=== PATIENT | female | born 1995 | race Caucasian/White ===

== ENCOUNTER → 2020-05-28 15:37 | Outpatient (CLI) | payer MEDICAID, SELFPAY ==
[2020-05-28 16:16] LABS: Lipase 69 U/L (73-393)
== END ==
PROVIDERS: Referring Provider Physician Assistant; Visit Provider Physician Assistant
DX: R10.11 Right upper quadrant pain (principal); R19.7 Diarrhea, unspecified
CPT/HCPCS: 83690

== ENCOUNTER 2020-05-29 11:42 | Emergency (ER) | payer MEDICAID, SELFPAY ==
[2020-05-29 11:43] VITALS: BP 139/81; PULSE 98; RESP 16; TEMP 36.2; O2SAT 97; BMI 37.3
--- NOTE | 2020-05-29 11:57 | CT_ITS ---
STUDY: CT ABDOMEN AND PELVIS WITHOUT CONTRAST REASON FOR EXAM: Female, 25 years old. Kidney Stone RADIATION DOSAGE (If Supplied By Facility): CTDIvol = ( 16.24 ) mGy, DLP = ( 839.63 ) mGycm TECHNIQUE: Transaxial images were obtained from the dome of the diaphragm to the symphysis pubis without oral contrast, and without intravenous contrast. Sagittal and coronal images were reconstructed. Individualized dose optimization techniques were used for this CT. COMPARISON: None. FINDINGS: The visualized lung bases are unremarkable. The visualized portions of the heart are within normal limits. There is decreased attenuation of the liver consistent with steatosis. There are surgical clips in the gallbladder fossa consistent with a prior cholecystectomy. Normal spleen. Normal pancreas. Normal bilateral adrenal glands. Normal right kidney. Normal left kidney. Normal visualized stomach. Normal small intestine. Normal colon. The appendix is visualized and appears normal. Normal abdominal aorta. Normal inferior vena cava. Normal retroperitoneum. Normal urinary bladder. There is a small umbilical hernia containing fat. Normal osseous structures. CT/Abdomen/Pelvis without Cont IMPRESSION: 1. No renal or ureteral stone. 2. Status post cholecystectomy with fatty infiltration liver. Electronically Signed: Saji Aquino MD at 13:54 EDT Tel , Service support ,
[2020-05-29] MEDS: 0.9% Normal Saline 1,000 ML 250 ML IV (12:23)
[2020-05-29] MEDS: Ondansetron 4 MG/2 ML Vial IV (12:23)
--- NOTE | 2020-05-29 12:23 | ED.DCSUM_ITS ---
History of Present Illness Chief Complaint: Flank Pain Informant: Patient Onset: Days Context: Sudden Onset Timing: Continuous, Waxes and wanes Quality: Right flank/right upper abdominal pain Location: Right Current Severity: Mild Maximum Severity: Severe Worsened by: Nothing specific Relieved by: Nothing Associated Symptoms: Nothing Narrative: Patient is a 25-year-old woman status post cholecystectomy who presents with abrupt onset of right flank pain and right upper quadrant pain that started on Sunday. The pain has waxed and waned its intensity. The pain is described as pain. She denies dysuria, frequency, urgency or hematuria. She denies history of renal ureterolithiasis. She does have remote history of pyelonephritis. She denies fever, chills night sweats. She denies history of VTE or risk factors. There is no history of trauma. She has not noted a rash. No family history of renal or ureterolithiasis. Prior similar symptoms: No Recent Illness/Hospitalization: No Past Medical History - Allergies and Home Meds Allergies/Adverse Reactions: Allergies sumatriptan [From Imitrex] Adverse Reaction (Verified 05/29/20 11:46) PT UNSURE OF REACTION Primary Care Physician: TESS MOODY [Other] Prior records reviewed: No Surgical History: cholecystectomy Lives: With Family Smoking Status: Never smoker Alcohol: None Drugs: None Review of Systems General: Denies: Chills, Fever, Sweats Cardiovascular: Denies: Chest pain, Palpitations Respiratory: Denies: Dyspnea, Cough, Dyspnea on exertion Gastrointestinal: Reports: Abdominal pain. Denies: Nausea, Vomiting, Diarrhea Genitourinary: Denies: Dysuria, Hematuria, Frequency Musculoskeletal: Reports: Back pain. Denies: Myalgias, Arthralgias, Neck pain, Swelling, Extremity Pain Skin: Denies: Rash, Wounds Neurological: Denies: Weakness, Parasthesia Endocrine: Denies: Polyuria, Polydipsia Hematologic: Denies: Easy bruising, Easy bleeding Allergy: Denies: Uticaria Physical Exam Vital Signs/Narrative: Vital Signs Temp Pulse Resp BP Pulse Ox 05/29/20 11:43 97.1 F L 98 16 139/81 H 97 Inital Vital Signs reviewed: Yes General: Well nourished, Well developed, Obese, Acute Distress Head: Normocephalic, Atraumatic Eyes: Perrl, EOMI. Negative for: Pale conjunctiva, Scleral icterus ENT: Moist mucous membranes, No rhinorrhea Neck: Supple, Nontender. Negative for: No lymphadenopathy, No JVD Cardiovascular: Regular rate, Regular rhythm, No murmurs, Normal S1, Normal S2 Respiratory: No distress, CTA bilaterally, Chest nontender Abdomen: Soft, Nondistended, Normal bowel sounds, Tender. Negative for: N ontender, Putnam's sign Rectal: Deferred Back: Nontender, Normal Inspection, CVA tenderness - Right side. Negative for: Spinal tenderness Extremities: Nontender, No edema Skin: Normal color, No rash Neurological: Alert, Oriented x3, Cranial nerves II-XII grossly intact, Normal Strength, Normal Sensation, Normal DTR Psychological: Depressed Diagnostic/Tx/Re-eval Impressions Abdomen/Pelvis CT 05/29/20 11:57 IMPRESSION: 1. No renal or ureteral stone. 2. Status post cholecystectomy with fatty infiltration liver. Electronically Signed: Saji Aquino MD at 13:54 EDT Tel , Service support , 05/29/20 11:57 Abdomen/Pelvis without Cont [CT] Stat Laboratory Results 05/29/20 05/29/20 05/29/20 12:20 12:20 12:20 WBC 7.9 RBC 4.71 Hgb 13.8 Hct 41.3 MCV 87.7 MCH 29.3 MCHC 33.4 RDW Std Deviation 39.4 RDW Coeff of Vel 12.3 Plt Count 210 MPV 11.5 Immature Gran % (Auto) 0.600 Neut % (Auto) 64.0 Lymph % (Auto) 25.6 [place] % (Auto) 6.0 Eos % (Auto) 3.4 Baso % (Auto) 0.4 Absolute Neuts (auto) 5.1 Absolute Lymphs (auto) 2.02 Nucleated RBC % 0 Sodium 142 Potassium 3.4 L Chloride 114 H Carbon Dioxide 23.0 Anion Gap 5 BUN 14 Creatinine 0.89 Estim Creat Clear Calc 85.44 Est GFR (MDRD) Af Amer 98 Est GFR (MDRD) Non-Af 81 BUN/Creatinine Ratio 15.8 Glucose 116 H Calcium 7.4 L Serum , Qual NEGATIVE Urine Color Urine Clarity Urine pH Ur Specific [place] Urine Protein Urine Glucose (UA) Urine Ketones Urine Occult Blood Urine Nitrite Urine Bilirubin Urine Urobilinogen Ur Leukocyte Esterase Urine RBC Urine WBC Ur Squamous Epith Cells Urine Bacteria Urine Mucus 05/29/20 12:20 WBC RBC Hgb Hct MCV MCH MCHC RDW Std Deviation RDW Coeff of Vel Plt Count MPV Immature Gran % (Auto) Neut % (Auto) Lymph % (Auto) [place] % (Auto) Eos % (Auto) Baso % (Auto) Absolute Neuts (auto) Absolute Lymphs (auto) Nucleated RBC % Sodium Potassium Chloride Carbon Dioxide Anion Gap BUN Creatinine Estim Creat Clear Calc Est GFR (MDRD) Af Amer Est GFR (MDRD) Non-Af BUN/Creatinine Ratio Glucose Calcium Serum , Qual Urine Color Yellow Urine Clarity Cloudy Urine pH 5.0 Ur Specific [place]houn 1.025 Urine Protein 15 H Urine Glucose (UA) Normal Urine Ketones 5 H Urine Occult Blood 10 H Urine Nitrite Negative Urine Bilirubin Negative Urine Urobilinogen Normal Ur Leukocyte Esterase 25 H Urine RBC 0 SEEN Urine WBC 0-5 SEEN Ur Squamous Epith Cells 25-50 SEEN Urine Bacteria 3+ Urine Mucus [address] reveals no evidence of renal ureterolithiasis. Urine is a contaminated specimen. The cause of her pain is unknown. - Medical Decision Making Patient with waxing waning flank pain need to evaluate for renal/ureterolithiasis with obstruction, pyelonephritis or other etiology. CT without contrast and appropriate blood work and UA were obtained. She was medicated with IV Toradol. Patient was discharged prescription for Naprosyn. She was informed the cause of her pain is unknown. ED Disposition - Plan for ED Patient: Disposition: Home or Assisted Living Diagnosis: Acute right flank pain, Right upper quadrant pain Instructions: ED Flank Pain, Uncertain Cause Prescriptions: Naproxen [Naprosyn] 500 mg PO BID #14 tablet Transmission Status: Pending to [id number] Referrals: TESS MOODY [Other] - 3-5 Days if not improving
[2020-05-29] MEDS: Ketorolac 15 MG/ML Vial IV (12:24)
[2020-05-29 12:31] LABS: Mucous, Urine 0 SEEN /hpf (<or=2+); Red Blood Cells-Urine 0 SEEN /hpf (0-5)
[2020-05-29 12:33] LABS: Color, Urine Yellow (Yellow); Glucose, Dipstick Normal (Normal); Ketone-Dipstick 5 mg/dl (Negative); Leukocyte Esterase-Dipstick 25 /ul (Negative); Nitrite-Dipstick Negative (Negative); Occult Blood-Urine 10 /ul (Negative); Protein-Dipstick 15 mg/dl (Negative); Specific Gravity, Urine 1.025 (1.002-1.030); Urine Bilirubin Dipstick Negative (Negative); Urine Clarity Cloudy (Clear); Urine Urobilinogen Normal (Normal)
[2020-05-29 12:34] LABS: Absolute Lymphocyte Count 2.02 X10^3/uL (0.83-4.51); Absolute Neutrophil Count 5.1 X10^3/uL (2.0-7.7); Basophil# 0.03 X10^3/uL; Basophil% 0.4 % (0-1); Eosinophil# 0.27 X10^3/uL; Eosinophils% 3.4 % (0-5); Hematocrit 41.3 % (37-47); Hemoglobin 13.8 g/dL (12.0-15.0); Lymphocyte # 2.02 X10^3/ul (0.83-4.51); Lymphocyte % 25.6 % (19-41); Mean Corp Hgb Conc 33.4 g/dL (32-36); Mean Corpuscular Hgb 29.3 pg (27.0-32.0); Mean Corpuscular Volume 87.7 fL (81-99); Mean Platelet Vol. 11.5 fl (6.2-12.0); Monocyte# 0.47 X10^3/uL; NRBC Flagged by Analyzer 0 % (0-5); Neutrophil # 5.05 X10^3/uL (2.7-7.7); Platelet Count 210 K/mm3 (150-450); RBC Distribution Width CV 12.3 % (11.6-14.6); RBC Distribution Width SD 39.4 fl (35.1-43.9); Red Blood Count 4.71 M/mm3 (4.2-5.4); White Blood Count 7.9 K/mm3 (4.4-11.0)
[2020-05-29 12:38] LABS: Bacteria 3+ /hpf (None Seen); Squamous Epithelial Cells - UA 25-50 SEEN /hpf (5-10); White Blood Cells 0-5 SEEN /hpf (0-5)
[2020-05-29 12:45] LABS: Anion Gap 5 (5-15); BUN 14 mg/dL (7-18); BUN/Creat Ratio 15.8 RATIO (10-20); Calcium,Total 7.4 mg/dL (8.5-10.1); Chloride 114 mmol/L (98-107); Creatinine, Serum 0.89 mg/dL (0.55-1.02); EST Glomerular Filtration Rate 81 mL/min (>60); Est Glom Filt Rate - Afr Amer 98 mL/min (>60); Estimated Creatinine Clearance 85.44 ml/min; Glucose 116 mg/dL (74-106); Potassium 3.4 mmol/L (3.5-5.1); Sodium Level 142 mmol/L (136-145)
[2020-05-29 12:50] LABS: Internal QC Validated? YES +Cl - CLEAR BKGD; Pregnancy, Serum, hCG Quali. NEGATIVE Negative
[2020-05-29 14:15] VITALS: BP 125/84; PULSE 79; RESP 15; O2SAT 98
== END 2020-05-29 14:17 | disposition home or self-care (01) ==
PROVIDERS: Emergency Provider Emergency Medicine
DX: R10.11 Right upper quadrant pain (principal); E66.9 Obesity, unspecified; Z90.49 Acquired absence of other specified parts of digestive tract
CPT/HCPCS: 74176; 80048; 81001; 84703; 85025; 96361; 96374; 96375; 99284; J7030; J2405

== ENCOUNTER 2020-07-30 10:53 | Emergency (ER) | payer MEDICAID, SELFPAY ==
[2020-07-30 10:54] VITALS: BP 137/84; PULSE 90; RESP 16; TEMP 36.5; O2SAT 96; BMI 36.8
--- NOTE | 2020-07-30 11:03 | EX.ED.GENINJ ---
HPI History of Present Illness Chief Complaint: Fall Informant: patient Narrative Narrative: 25-year-old female states that about 1 hour prior to arrival she tripped over a kids toy landing her left lower rib onto a step. She notes pain with movement and respirations. No hemoptysis. Patient denies any abdominal symptoms. PFSH PFSH Home Medications amoxicillin 1 mg PO BID 07/30/20 [History Last Taken Unknown] Allergy/AdvReac Type Severity Reaction Status Date / Time sumatriptan [From Imitrex] AdvReac PT UNSURE Verified 07/30/20 10:53 OF REACTION Social History (Updated 07/30/20 @ 11:[address] Tate Presley, DO) Smoking Status: Never smoker substance use type: does not use ROS ROS ED Constitutional Constitutional ED: Denies chills or weight loss Eyes Eyes: Denies change in vision or diplopia ENT ENT ED: Denies ear pain, rhinorrhea or sore throat Cardiovascular Cardiovascular: Reports chest pain; Denies orthopnea, palpitations or racing heartbeat Respiratory/Chest Respiratory/Chest: Denies cough, dyspnea or orthopnea Gastrointestinal Gastrointestinal: Denies abdominal pain, diarrhea, nausea or vomiting Genitourinary Genitourinary ED: Denies dysuria, hematuria or urinary frequency Musculoskeletal Musculoskeletal: Denies arthralgias or myalgias Integumentary Denies abscess or rash Neurologic Neurologic: Denies headache(s) or weakness Psychiatric Psychiatric: Denies anxiety, depression, suicidal ideation or suicidal thoughts Endocrine Endocrinology: Denies polydipsia, polyphagia or polyuria Allergic/Immunologic Allergic/Immunologic ED: Denies mouth swelling, tongue swelling or urticaria EXAM Physical Exam Const Vital Signs: 07/30/20 10:54 07/30/20 11:00 Temperature 97.7 F L Temperature Source Temporal Pulse Rate 90 Respiratory Rate 16 Respiratory Effort Normal Non-Labored Respiratory Depth Normal Respiratory Pattern Normal Blood Pressure 137/84 H Blood Pressure Mean 101 Pulse Ox 96 Oxygen Delivery Method Room Air Room Air Positive well nourished and well developed General Appearance ED: well developed HEENT Reports normocephalic, head/scalp atraumatic and moist mucous membranes Eyes PERRL and EOMs intact bilaterally Neck no lymphadenopathy, supple and no JVD Chest Wall Chest Narrative: Tenderness to palpation the posterior aspect of the mid axillary ribs around rib 8 and 9. There are some mild erythema. No crepitance. Resp normal respiratory effort and clear to auscultation bilaterally Cardio regular rate, regular rhythm and no murmurs GI normal to inspection, nondistended, normoactive bowel sounds and non-tender Palpation: soft Back/Spine no CVA tenderness and normal ROM Extremity normal to inspection General Extremety ED: Negative for edema General Extremity: Negative for edema Neuro oriented x3 and CN's II-XII intact bilaterally Sensorium / Orientation: alert Motor Exam: strength 5/5 throughout Psych mental status grossly normal Mood & Affect: Negative for depressed or tearful Skin no rashes or lesions noted and no wounds MDM MDM MDM Narrative Medical decision making narrative: My impression of the plain films of the rib series Discharge Plan Triage Chief Complaint: Fall ED Provider: Tate Presley Dx/Rx/DC Orders Clinical Impression: Contusion of rib on left side Instructions: ED Contusion, Rib Prescriptions: No Action amoxicillin 875 mg tablet 1 mg PO BID RF: 0 Referrals: DAYDAY CANALES [Other] Disposition Disposition: Home, Self Care
--- NOTE | 2020-07-30 11:10 | RAD_ITS ---
STUDY: X-RAY - UNILATERAL RIBS ( LEFT ) WITH CHEST REASON FOR EXAM: Female, 25 years old. injury TECHNIQUE - RIBS: view(s) of the ribs. TECHNIQUE - CHEST: COMPARISON: None. FINDINGS - RIBS: Normal visualized ribs without a demonstrated fracture. FINDINGS - CHEST: The lungs are clear and expanded. There is no demonstrated pleural abnormality. Normal size heart. Normal mediastinum and cassi. Normal visualized pulmonary arteries. Normal visualized aortic arch and descending thoracic aorta. Normal visualized thoracic spine. Normal visualized ribs, clavicles, and shoulders. There is no demonstrated abnormality of the visualized soft tissue structures of the upper abdomen. RAD/Ribs Uni Min 3V w/PA Chest IMPRESSION: RIBS: Normal x-ray examination of the ribs. CHEST: Normal x-ray examination of the chest. Electronically Signed: Gregorio Arnold, at 11:36 EDT Tel , Service support ,
[2020-07-30 11:54] VITALS: PULSE 84; RESP 17; O2SAT 97
== END 2020-07-30 11:55 | disposition home or self-care (01) ==
PROVIDERS: Emergency Provider Emergency Medicine
DX: S20.212A Contusion of left front wall of thorax, initial encounter (principal); W01.0XXA Fall on same level from slipping, tripping and stumbling without subsequent striking against object, initial encounter
CPT/HCPCS: 71101; 99282

== ENCOUNTER 2023-06-05 06:41 | Emergency (ER) | payer MEDICAID, SELFPAY ==
[2023-06-05 06:42] VITALS: BP 133/98; PULSE 79; RESP 18; TEMP 36.6; O2SAT 98; BMI 37.2
--- NOTE | 2023-06-05 07:07 | EX.ED.UPPERE ---
HPI History of Present Illness HPI Narrative: Patient presents with pain and swelling to her right elbow, forearm, and hand that has been getting worse over the past 2 days. Patient states it began rather suddenly. Patient states she was at rest when the pain began. Patient states the pain has been constant. Patient describes her pain as sharp. Patient states it is worse with any movement or lifting. Patient states it is better with rest. Patient admits to some tingling into her fingers but denies any weakness. Patient denies any trauma or injury. Chief Complaint: Upper Extremity Injury Informant: patient Onset/Context/Timing Onset: Days (2) Context: Sudden Onset Timing: Continuous Quality of Pain: Sharp Location: Right elbow, forearm, and hand Worsened by: Lifting, movement Relieved by: Rest Associated Symptoms Associated Symptoms: Positive for Parasthesia; Negative for Weakness or Loss of Funtion PFSH PFSH Medical History no medical history no medical history Home Medications naproxen 500 mg tablet 500 mg PO BID #20 tabs 06/05/23 [Rx Last Taken Unknown] phentermine 8 mg tablet (Lomaira) 8 mg PO DAILY 06/05/23 [History Last Taken Unknown] Allergy/AdvReac Type Severity Reaction Status Date / Time sumatriptan [From Imitrex] AdvReac PT UNSURE Verified 06/05/23 06:42 OF REACTION Surgical History no surgical history no surgical history Social History Smoking Status: Never smoker substance use type: does not use ROS ROS ED Constitutional Constitutional ED: Denies chills or fever(s) Eyes Eyes: Denies blurry vision or change in vision ENT ENT ED: Denies rhinorrhea or sore throat Cardiovascular Cardiovascular: Denies chest pain or palpitations Respiratory/Chest Respiratory/Chest: Denies cough or dyspnea Gastrointestinal Gastrointestinal: Denies nausea or vomiting Genitourinary Genitourinary ED: Denies dysuria or hematuria Musculoskeletal Musculoskeletal: Denies back pain or neck pain Integumentary Denies abscess or rash Neurologic Neurologic: Denies headache(s) or weakness Allergic/Immunologic Allergic/Immunologic ED: Denies mouth swelling or urticaria EXAM Physical Exam Const Vital Signs: 06/05/23 06:42 Temperature 97.9 F Temperature Source Temporal Pulse Rate 79 Respiratory Rate 18 Blood Pressure 133/98 H Blood Pressure Mean 109 Pulse Ox 98 Oxygen Delivery Method Room Air Positive well nourished, well developed and obese General Appearance ED: well developed and NAD Nutritional Appearance: obese HEENT Reports moist mucous membranes Neck full ROM and supple Extremity full ROM Extremity Narrative: There is tenderness over the lateral epicondyle and medial epicondyle over the right elbow. There is no bony crepitance or step-off noted. Range of motion was limited in all motions of the right elbow and right wrist secondary to pain. There is pain over the lateral epicondyle with resisted extension of the right wrist. There is a positive Tinel sign at the elbow over the cubital tunnel as well as over the wrist over the carpal tunnel. There is a positive Phalen's test. There is no obvious deformity noted. Radial pulses are equal bilaterally. Sensation was intact to light touch in the radial, median, and ulnar areas. Strength is 5/5 in the radial, median, and ulnar areas. General Extremety ED: Yes edema General Extremity: edema Neuro oriented x3, CN's II-XII intact bilaterally, moves all extremities, no focal motor deficits and no sensory deficits noted Sensorium / Orientation: alert Motor Exam: strength 5/5 throughout Psych mental status grossly normal MDM MDM MDM Narrative Medical decision making narrative: Patient was advised that this is most likely inflammatory condition. It could be carpal tunnel, cubital tunnel, or lateral epicondylitis. Patient was advised that the treatment for all of these is anti-inflammatory medicine. Patient was also given a cock up wrist splint. Patient was instructed to follow-up with her primary care physician in 5 to 7 days. Patient was instructed to return if worse in any way. Patient understood and was agreeable with the plan. All questions were answered. Discharge Plan Triage Chief Complaint: Upper Extremity Injury ED Provider: Yo Baker Dx/Rx/DC Orders Clinical Impression: Lateral epicondylitis of right elbow, Carpal tunnel syndrome, right Instructions: ED Carpal Tunnel Syndrome, ED Tennis Elbow Prescriptions: New naproxen 500 mg tablet 500 mg PO BID Qty: 20 0RF No Action Lomaira 8 mg tablet 8 mg PO DAILY Rx Instructions: must administer 30 minutes before meals/food Stand Alone Forms: Work Status Form Primary Care Provider: Care Physician,No Primary Referrals: Enma Peres DO [Med Staff - Active Staff] - 5-7 Days Care Physician,No Primary [Primary Care Provider] - Disposition Disposition: Home, Self Care
[2023-06-05] MEDS: Naproxen 500 MG Tablet PO (07:41)
== END 2023-06-05 07:51 | disposition home or self-care (01) ==
PROVIDERS: Emergency Provider Emergency Medicine; Visit Provider Emergency Medicine
DX: M77.11 Lateral epicondylitis, right elbow (principal); G56.01 Carpal tunnel syndrome, right upper limb; E66.9 Obesity, unspecified
CPT/HCPCS: 99283

== ENCOUNTER 2024-02-19 20:33 | Emergency (ER) | payer MEDICAID, SELFPAY ==
[2024-02-19 20:34] VITALS: BP 111/86; PULSE 106; RESP 16; TEMP 36.9; O2SAT 97; BMI 33.8
--- NOTE | 2024-02-19 22:17 | EDS_ITS ---
HPI History of Present Illness Chief Complaint: Cough Informant: patient and spouse/S.O. Narrative Narrative: Patient is a 28-year-old female who is a roughly 15 weeks . She states her other child got sick over [place] break and then she has been having congestion drainage and cough for approximately 2 weeks. She states that symptoms are not improving. She denies fevers or chills. She denies history of lung disorders such as asthma COPD or emphysema. With her she denies any vaginal bleeding or discharge. She states that as her symptoms have not improved over the past 2 weeks she does have concern for developing infection such as pneumonia and therefore comes in for evaluation [facility] Medical History unable to obtain Home Medications ?Medication ?Instructions ?Recorded ?Last Taken ?Type naproxen 500 mg tablet 500 mg PO BID #20 tabs 06/05/23 Unknown Rx phentermine 8 mg tablet (Lomaira) 8 mg PO DAILY 06/05/23 Unknown History azithromycin 250 mg tablet See Rx Instructions PO .COMPLEX #6 02/19/24 Unknown Rx (Zithromax Z-Rainer) tabs benzonatate 200 mg capsule 200 mg PO TID PRN cough 7 days #21 02/19/24 Unknown Rx caps Allergy/AdvReac Type Severity Reaction Status Date / Time sumatriptan (From Imitrex) AdvReac PT UNSURE Verified 02/19/24 20:38 OF REACTION Social History Smoking Status: Never smoker substance use type: does not use ROS ROS ED Constitutional Constitutional ED: Denies chills or fever(s) Eyes Eyes: Denies blurry vision or change in vision ENT ENT ED: Reports rhinorrhea Cardiovascular Cardiovascular: Denies chest pain Respiratory/Chest Respiratory/Chest: Reports cough and dyspnea Gastrointestinal Gastrointestinal: Denies abdominal pain, diarrhea, nausea or vomiting Genitourinary Genitourinary ED: Reports other Details: Negative vaginal bleeding or discharge ; Denies dysuria or hematuria Musculoskeletal Musculoskeletal: Reports myalgias Integumentary Denies rash Neurologic Neurologic: Denies headache(s) Hematologic/Lymphatic Hematologic/Lymphatic: Denies easy bleeding or easy bruising Allergic/Immunologic Allergic/Immunologic ED: Denies mouth swelling or tongue swelling EXAM Physical Exam Const Vital Signs: 02/19/24 20:34 Temperature 98.4 F Temperature Source Oral Pulse Rate 106 H Respiratory Rate 16 Blood Pressure 111/86 H Blood Pressure Mean 94 Pulse Ox 97 Oxygen Delivery Method Room Air Positive well nourished and well developed General Appearance ED: well developed; Negative for pallor HEENT HEENT Narrative: Bilateral TMs are retracted right greater than left without secondary findings to suggest infection Nasal mucosa is hyperemic and boggy with enlarged inferior nasal turbinates There is cobblestoning noted in the posterior pharynx consistent with sinus drainage without airway edema or compromise; no secondary findings to suggest infection Eyes PERRL and EOMs intact bilaterally Neck supple and no JVD Resp normal respiratory effort Resp Narrative: Breath sounds are slightly diminished throughout with faint expiratory wheeze however in the right lower lobe there is asymmetrical rhonchi noted. Cardio regular rate and regular rhythm GI normal to inspection, nondistended, normoactive bowel sounds, non-tender and non-distended GI Narrative: Abdomen is soft nontender nondistended with normal active bowel sounds. Fundus is appropriate with reported gestational age. Auscultation: normoactive bowel sounds Palpation: soft Extremity normal to inspection Extremity Narrative: No asymmetric edema no pitting edema negative Homans' sign bilaterally Neuro oriented x3, CN's II-XII intact bilaterally and no sensory deficits noted Sensorium / Orientation: alert Motor Exam: strength 5/5 throughout Psych mental status grossly normal Skin no rashes or lesions noted General Skin Exam: Negative for jaundice or pallor MDM MDM MDM Narrative Medical decision making narrative: Patient arrived to the ER with stable vitals and in no acute respiratory distress. With her report of congestion and cough this is most likely COVID versus influenza versus RSV or some other type of viral process such as rhinovirus or human metapneumo virus. However as she does have asymmetric right lower lobe breath sounds there is concern for developing pneumonia. I discussed with patient potential viral swab for COVID influenza and RSV but as she is not hypoxic or in respiratory distress it would not change treatment outcomes and therefore she does not want a viral swab obtained. With asymmetric breath sounds there is concern for pneumonia but based on her status I did not feel that it was appropriate to x-ray. At this time with 2 weeks of cough asymmetric breath sounds in the right lower lobe patient most likely is developing a secondary pneumonia. However she is not hypoxic or in respiratory distress and vitals do not suggest systemic infection such as sepsis. Therefore we will simply start the patient on antibiotics and she can follow-up with your family doctor and/or WORK MEASUREMENT ENGINEER for repeat evaluation. History & Record Review Discussion w/independent historian: Patient Discharge Plan Triage Chief Complaint: Cough Other Complaint: ED Provider: Kaz Schrader Dx/Rx/DC Orders Clinical Impression: Upper respiratory tract infection, Intrauterine Instructions: ED URI, Viral W/ Wheezing (Adult) Prescriptions: New azithromycin [Zithromax Z-Rainer] 250 mg tablet See Rx Instructions .ROUTE .COMPLEX Qty: 6 0RF Rx Instructions: For 250 mg dose pack: take 500 mg today (day 1), then 250 mg for 4 days (days 2-5) benzonatate 200 mg capsule 200 mg PO TID PRN (Reason: cough) 7 Days Qty: 21 0RF No Action Lomaira 8 mg tablet 8 mg PO DAILY Rx Instructions: must administer 30 minutes before meals/food naproxen 500 mg tablet 500 mg PO BID Qty: 20 0RF Stand Alone Forms: ED Work / School Excuse Primary Care Provider: Care Physician,No Primary Referrals: Mariana Hilario CNM [Med Staff - Adv Practice Prof] - Care Physician,No Primary [Primary Care Provider] - Activity Restrictions/Additional Instructions: Your symptoms are consistent with a viral upper respiratory tract infection but based on the 2-week timeframe of symptoms and the fact your right lower lobe sounds worse than the other sections of your lung there is concern for developing pneumonia. With your status we will simply treat with a Z- Rainer. Please follow-up with your WORK MEASUREMENT ENGINEER to ensure they agree with treatment and return to the ER should you have any further concerns Print Language: Lao Disposition Disposition: Home, Self Care Discharge Date/Time: 02/19/24 22:33
[2024-02-19] MEDS: Albuterol Sulfate 8 gm Inhaler (60 puffs) 2 PUFF INHALATION (22:25)
[2024-02-19] MEDS: Azithromycin 250 MG Tablet 500 MG PO (22:31)
[2024-02-19] MEDS: Benzonatate 100 MG Capsule 200 MG PO (22:31)
== END 2024-02-19 22:33 | disposition home or self-care (01) ==
PROVIDERS: Emergency Provider Emergency Medicine; Visit Provider Emergency Medicine
DX: O23.42 Unspecified infection of urinary tract in pregnancy, second trimester (principal); Z3A.15 15 weeks gestation of pregnancy
CPT/HCPCS: 99284

== ENCOUNTER 2024-07-25 14:20 | Outpatient (CLI) | payer MEDICAID, SELFPAY ==
[2024-07-25] VITALS (12 sets, daily range): BP systolic 115–134; BP diastolic 60–91; PULSE 85–103; RESP 14; TEMP 36.7; O2SAT 98–100; BMI 40.7
[2024-07-25 15:15] LABS: Color, Urine Yellow (Yellow); Glucose, Dipstick Normal (Normal); Ketone-Dipstick Negative (Negative); Leukocyte Esterase-Dipstick Negative /ul (Negative); Nitrite-Dipstick Negative (Negative); Occult Blood-Urine 10 /ul (Negative); Protein-Dipstick 15 mg/dl (Negative); Specific Gravity, Urine 1.015 (1.002-1.030); Urine Bilirubin Dipstick Negative (Negative); Urine Clarity Clear (Clear); Urine Urobilinogen Normal (Normal)
[2024-07-25 16:13] LABS: Hematocrit 32.2 % (37-47); Hemoglobin 10.7 g/dL (12.0-15.0); Mean Corp Hgb Conc 33.2 g/dL (32-36); Mean Corpuscular Hgb 28.6 pg (27.0-32.0); Mean Corpuscular Volume 86.1 fL (81-99); Mean Platelet Vol. 12.3 fl (6.2-12.0); Platelet Count 139 K/mm3 (150-450); RBC Distribution Width CV 13.6 % (11.6-14.6); RBC Distribution Width SD 42.3 fl (35.1-43.9); Red Blood Count 3.74 M/mm3 (4.2-5.4); White Blood Count 8.5 K/mm3 (4.4-11.0)
[2024-07-25] MEDS: Acetaminophen 500 MG Tablet 1000 MG PO (16:40)
[2024-07-25 17:18] LABS: Protein, Urine (Random) 15.5 mg/dL (0.0-12.0); Protein:Creat Ratio 179 mg/g CRE (0-200)
[2024-07-25 17:23] LABS: AST(SGOT) 14 U/L (<=31); Alanine Aminotransfer ALT/SGPT 7 U/L (<=34); Creatinine, Serum 0.74 mg/dL (0.70-1.20); EST Glomerular Filtration Rate 111 (>60); Estimated Creatinine Clearance 136.77 ml/min (50-250); Uric Acid 4.8 mg/dL (2.6-6.0)
--- NOTE | 2024-07-25 17:57 | OB.TRI.NOTE ---
HPI - General General Date of Admission: 07/25/24 Date of Service: 07/25/24 Chief Complaint: R/o labor HPI Narrative RICHARD GONZALEZ, is a 29 F who presents with contractions. Intermittent mild contractions. No cervical change. PFSH PFSH Allergy/AdvReac Type Severity Reaction Status Date / Time sumatriptan (From Imitrex) AdvReac PT UNSURE Verified 07/25/24 16:43 OF REACTION Social History Smoking Status: Never smoker substance use type: does not use NST FHR Rate Baby A Baseline: 140 Variability:: Moderate Accelerations:: 15 x 15 Decelerations:: None NST Reactive:: Yes Uterine Activity:: irregular Assessment & Plan (1) 37 weeks gestation of : (2) Threatened labor at term: PLAN: Plan Discharge Follow up as scheduled
--- NOTE | 2024-07-30 20:49 | OB.TRI.NOTE ---
HPI - General General Date of Admission: 07/25/24 Date of Service: 07/30/24 Chief Complaint: R/o labor HPI Narrative RICHARD GONZALEZ, is a 29 F who presents r/o labor, r/o rupture. No cervical change. ROM negative. Scheduled next week for breech. Maternal Data Information Final MARYJANE: 08/11/24 Gestational age: 38+3 PFSH PFSH Home Medications ?Medication ?Instructions ?Recorded ?Last Taken ?Type acetaminophen 325 mg tablet 650 mg PO Q4H PRN headache 07/30/24 07/30/24 History (Tylenol) Allergy/AdvReac Type Severity Reaction Status Date / Time sumatriptan (From Imitrex) AdvReac PT UNSURE Verified 07/30/24 14:00 OF REACTION Social History Smoking Status: Never smoker substance use type: does not use History 3 Elective abortions Hx Para 1 Spontaneous abortions Hx # Term Pregnancies Ectopic pregnancies Hx # Pregnancies Multiple births # of living children NST FHR Rate Baby A Baseline: 135 Variability:: Moderate Accelerations:: 15 x 15 Decelerations:: None NST Reactive:: Yes Assessment & Plan (1) Threatened labor at term: (2) 38 weeks gestation of :
== END 2024-07-25 17:50 | disposition home or self-care (01) ==
LOC: WPOUT 14:27 → WP 14:28
PROVIDERS: Referring Provider Obstetrics & Gynecology; Visit Provider Obstetrics & Gynecology
DX: O47.1 False labor at or after 37 completed weeks of gestation (principal); Z3A.37 37 weeks gestation of pregnancy
CPT/HCPCS: 36415; 59025; 59050; 81002; 82565; 82570; 84156; 84450; 84460; 84550; 85027; 87086; 87088; 99221; G0378

== ENCOUNTER 2024-07-30 13:52 | Outpatient (CLI) | payer MEDICAID, SELFPAY ==
[2024-07-30 13:53] VITALS: RESP 12; TEMP 36.8; O2SAT 99
[2024-07-30 13:54] VITALS: BMI 41.2
[2024-07-30 14:19] LABS: ROM Internal Control Test YES-OK TO RESULT pt. (Internal QC); ROM Patient Test Negative (Negative)
[2024-07-30 14:22] LABS: Record Kit Lot#, ROM+ K3358
--- OUTSIDE RECORDS SUMMARY | 2024-07-30 22:24 | XMS RPT_ITS | CCD ---
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 Unavailable Unavailable Georgette, Venancio D. Unavailable Unavailable Freeman, Peter Unavailable Unavailable Georgette, Venancio D. Unavailable Unavailable Georgette, Venancio D. Unavailable Unavailable Freeman, Peter Unavailable Unavailable Georgette, Venancio D. Unavailable Unavailable Georgette, Venancio D. Unavailable Unavailable NONE, XXXX Unavailable Unavailable Georgette, Venancio D. Unavailable Unavailable Georgette, Venancio D. Unavailable Unavailable Georgette, Venancio D. Unavailable Unavailable Georgette, Venancio D. Unavailable Unavailable Georgette, Venancio D. Unavailable Unavailable Georgette, Venancio D. Unavailable Unavailable Georgette, Venancio D. Unavailable Unavailable Georgette, Venancio D. Unavailable Unavailable Georgette, Venancio D. Unavailable Unavailable Kenia ADAMS, Mauricio Unavailable Matthew Vera MD Primary Care Provider [phone] Jose Haynes MD Primary Care Provider [phone] Cirilo Noble MDriel Unavailable [phone] Mauricio Aquino MD Unavailable Matthew Vera MD Primary Care Provider [phone] Mauricio Aquino MD Unavailable Matthew Vera MD Primary Care Provider [phone] Jose Haynes MD Primary Care Provider [phone] Aide ADAMS Judd Unavailable [phone] Karon Odonnell MD Primary Care Provider [phone] Venancio Beckford MD Unavailable [phone] Dora Santacruz MD (Rn) Unavailable Jody ADAMS, Matthew Raymond Primary Care Provider Venancio Beckford MD Unavailable Blas ADAMS, Karon Primary Care Provider Dora Santacruz MD (Rn) Unavailable Matthew Vera MD Primary Care Provider Generic Provider MD, No Assigned Pcp Primary Car e Provider Unavailable SEGUNDO LOPEZ Attending Unavailable GENERIC PROVIDER, NO ASSIGNED PCP Primary Care Unavailable HAURY, ELKIN Referring Unavailable RAINBOLT, KARON Primary Care Unavailable HAURY, ELKIN Referring Unavailable RAINBOLT, KARON Primary Care Unavailable HAURY, ELKIN Referring Unavailable RAINBOLT, KARON Primary Care Unavailable RAINBOLT, KARON Primary Care Unavailable JUAN, ELKIN Referring Unavailable RAINBOLT, KARON Primary Care Unavailable RAEGAN MORA Attending Unavailable JENISE NIEVES Admitting Unavailable OMAR ARTHUR Attending Unavailable RAINBOLT, KARON Primary Care Unavailable Care Physician, No Primary Primary Care Provider Unavailable Ezequiel ADAMS, Dr. Burden Attending Provider Ezequiel ADAMS, Dr. Burden Referring Provider ALFRED CHILDRESS Referring Unavailable RAINBOLT, KARON Primary Care Unavailable ALFRED CHILDRESS Referring Unavailable RAINBOLT, KARON Primary Care Unavailable MARIANA HILARIO Attending Unavailable RAINBOLT, KARON Primary Care Unavailable MARIANA HILARIO Referring Unavailable ALFRED CHILDRESS Referring Unavailable RAINBOLT, KARON Primary Care Unavailable JENISE NIEVES Attending Unavailable ALFRED CHILDRESS Attending Unavailable WISWELL, SUSANA Referring Unavailable RAINBOLT, KARON Primary Care Unavailable WISWELL, SUSANA Referring Unavailable RAINBOLT, KARON Primary Care Unavailable REAGAN BERMEO Attending Unavailable WISWELL, SUSANA Referring Unavailable RAINBOLT, KARON Primary Care Unavailable RAINBOLT, KARON Primary Care Unavailable JENISE NIEVES Referring Unavailable SELF Referring Unavailable RAINBOLT, KARON Primary Care Unavailable JENISE NIEVES Attending Unavailable RAINBOLT, KARON Primary Care Unavailable RAINBOLT, KARON Primary Care Unavailable HAURY, ELKIN Referring Unavailable WISWELL, SUSANA Referring Unavailable RAINBOLT, KARON Primary Care Unavailable HAURY, ELKIN Referring Unavailable WISWELL, SUSANA Attending Unavailable RAINBOLT, KARON Primary Care Unavailable RAINBOLT, KARON Primary Care Unavailable HAURY, ELKIN Referring Unavailable HAURY, ELKIN Attending Unavailable RAINBOLT, KARON Primary Care Unavailable RAINBOLT, KARON Primary Care Unavailable MARIANA HILARIO Attending Unavailable RAINBOLT, KARON Primary Care Unavailable ED VAZ Attending Unavailable RAINBOLT, KARON Primary Care Unavailable ED VAZ Attending Unavailable ALFRED CHILDRESS Referring Unavailable JANAY HUGO Attending Unavail able RAINBOLT, KARON Primary Care Unavailable ALFRED CHILDRESS Referring Unavailable RAINBOLT, KARON Primary Care Unavailable ERIC GASPAR Attending Unavailable RAINBOLT, KARON Primary Care Unavailable MARIANA HILARIO Attending Unavailable RAINBOLT, KARON Primary Care Unavailable ALFRED CHILDRESS Referring Unavailable RAINBOLT, KARON Primary Care Unavailable ELSA CHAUDHARY Referring Unavailable RAINBOLT, KARON Primary Care Unavailable ALFRED CHILDRESS Attending Unavailable RAINBOLT, KARON Primary Care Unavailable ALFRED CHILDRESS Referring Unavailable RAINBOLT, KARON Primary Care Unavailable ELSA CHAUDHARY Attending Unavailable RAINBOLT, KARON Primary Care Unavailable HAURY, ELKIN Referring Unavailable LEN JOHN Attending Unavailable RAINBOLT, KARON Primary Care Unavailable WISWELL, SUSANA Referring Unavailable RAINBOLT, KARON Primary Care Unavailable MARIANA HILARIO Attending Unavailable WISBENEDICTO, SUSANA Referring Unavailable ELSA CHAUDHARY Attending Unavailable RAINBOLT, KARON Primary Care Unavailable WISWELL, SUSANA Referring Unavailable RAINBOLT, KARON Primary Care Unavailable Care Physician, No Primary Primary Care Unava ilable Jenies Nieves Attending Unavailable Jenise Nieves Referring Unavailable Wiswell, Susana Attending Unavailable Wiswell, Susana Referring Unavailable Care Physician, No Primary Primary Care Unava ilable Wiswell, Susana Admitting Unavailable Care Physician, No Primary Primary Care Kaz Torres Attending Unavailable Allergies Allergy Classification Reported Allergen(s) Allergy Type Date of Onset Reaction(s) Facility (1 source) SUMAtriptan; Translations: [Imitrex] Drug Allergy [facility] Repository (1 source) No Known Allergies; Translations: [No Known Allergies] Propensity to adverse reactions (disorder) [facility] Repository (1 source) Excedrin Migraine Geltab; Translations: [Excedrin Migraine Geltab] Propensity to adverse reactions (disorder) [facility] Rep[facility] (20 sources) SUMAtriptan; Translations: [SUMATRIPTAN] Drug Allergy 1 Other: See Comments, Other [facility] (1 source) SUMAtriptan Drug Allergy 5 [facility] Repository Medications Current Medications Medication Drug Class(es) Dates Sig (Normalized) Sig (Original) acetaminophen 325 mg oral tablet (1 source) Start: 07-30-2024 take 2 tablets by mouth every four hours as needed for headache Acetaminophen (Tylenol) 325 mg tablet Active 650 mg PO Q4H as needed for headache July 30, 2024 12:00am amoxicillin 875 mg oral tablet (5 sources) Penicillin-class Antibacterial Start: 05-26-2024 End: 06-02-2024 take 1 tablet by mouth twice daily amoxicillin (AMOXIL) 875 mg tablet Indications: Acute otitis media, right Take 1 tablet by mouth two times a day for 7 days. 14 tablet 05/26/2024 06/02/2024 Active Start: 07-30-2020 End: 06-05-2023 take 1 mg by mouth twice daily Amoxicillin 875 mg tabl et Discontinued 1 mg PO TWICE A DAY July 30, 2020 12:00am June 05, 2023 6:44am Start: 07-30-2020 End: 06-05-2023 take 1 mg by mouth twice daily Amoxicillin Discontinue d 1 MG PO TWICE A DAY July 30, 2020 12:00am June 05, 2023 6:44am Comment on above: Take 1 tablet by cesar th two times a day for 7 days. cetirizine hydrochloride 10 mg oral tablet (20 sources) Histamine-1 Receptor Antagonist Start: take 1 tablet by mouth once daily cetirizine (ZYRTEC) 10 mg tablet Take 1 tablet by mouth once daily. 30 tablet 07/27/2020 Active Comment on above: Take 1 tablet by cesar th once daily. cyclobenzaprine hydrochloride 10 mg oral tablet (1 source) Muscle Relaxant Start: End: take 1 tablet by mouth once daily at bedtime cyclobenzaprine (FLEXERIL) 10 mg tablet Indications: Muscle spasm of right shoulder Take 1 tablet by mouth daily at bedtime for 7 days. 7 tablet 0 08/03/2021 08/10/2021 Active Comment on above: Take 1 tablet by cesar th daily at bedtime for 7 days. docusate sodium 100 mg oral capsule (3 sources) Start: take 1 capsule by mouth twice daily docusate sodium (COLACE) 100 MG capsule Take 1 Capsule by mouth 2 times daily. 60 Capsule 3 05/10/2018 Active Ethinyl Estradiol / norgestimate (3 sources) Progestin, Estrogen Start: norgestimate-ethinyl estradiol (TRI-SPRINTEC) 0.18/0.215/0.25 MG-35 MCG tablet Take 1 Tablet by mouth daily. Take 21 days of active pills; start a new pack of active pills on day 22 (discard last 7 placebo pills) 4 Package 4 05/16/2018 Active fluticasone propionate 0.05 mg/actuat metered dose nasal spray (20 sources) Corticosteroid Start: take 2 spray(s) by mouth once daily fluticasone (FLONASE) 50 mcg/actuation nasal spray Indications: Acute otitis media, right Use 2 sprays in each nostril once daily. Rinse mouth after use. 1 each 05/26/2024 Active Comment on above: Use 2 Sprays in each nostril once daily. Rinse mouth after use. ibuprofen 800 mg oral tablet (20 sources) Nonsteroidal Anti-inflammatory Drug Start: take 1 tablet by mouth every eight hours as needed for pain ibuprofen (MOTRIN) 800 MG tablet Take 1 Tablet by mouth every 8 hours as needed for Pain. 30 Tablet 3 05/10/2018 Active End: 04-26-2023 ibuprofen (MOTRIN ORAL) Take by mouth. 04/26/2023 Discontinued End: 04-26-2023 ibuprofen (MOTRIN ORAL) Take by mouth. 0 04/26/2023 Discontinued ibuprofen (MOTRI N ORAL) Take by mouth. 0 Active Comment on above: Take by mouth. levothyroxine sodium 0.1 mg oral tablet (20 sources) l-Thyroxine Start: End: take 1 tablet by mouth once daily before breakfast levothyroxine (SYNTHROID) 100 mcg tablet Indications: Elevated TSH Take 1 tablet by mouth daily before breakfast. 90 tablet 05/21/2024 08/19/2024 Active Start: 12-12-2023 End: 05-28-2024 take 1 tablet by mouth once daily before breakfast levothyroxine (SYNTHROID) 88 mcg tablet Indications: Elevated TSH Take 1 tablet by mouth daily before breakfast. 90 tablet 02/28/2024 03/28/2024 Discontinued 24 hr metFORMIN hydrochloride 500 mg extended release oral tablet (20 sources) Biguanide Start: 06-06-2023 End: 09-04-2023 take 1 tablet by mouth once daily at dinner metFORMIN ER (GLUCOPHAGE XR) 500 mg 24 hr tablet Indications: Obesity, Class I, BMI 30-34.9 Take 1 tablet by mouth daily with dinner. 90 tablet 0 06/06/2023 08/06/2023 Discontinued (Side Effects) Start: 09-12-2022 End: 06-06-2023 take 1 tablet by mouth twice daily before mealtime metFORMIN ER (GLUCOPHAGE XR) 500 mg 24 hr tablet Indications: Obesity, Class I, BMI 30-34.9 Take 1 tablet by mouth twice daily before meals. 60 tablet 3 09/12/2022 06/06/2023 Discontinued Start: 02-28-2022 End: 09-12-2022 take 1 tablet by mouth once daily at breakfast metFORMIN ER (GLUCOPHAGE XR) 500 mg 24 hr tablet Indications: Impaired fasting glucose , Obesity, Class II, BMI 35-39.9 Take 1 tablet by mouth daily with breakfast. 30 tablet 2 02/28/2022 06/05/2022 Discontinued (Course of therapy completed) Start: 02-23-2022 End: 02-28-2022 metFORMIN (GLUCOPHAGE) 500 m g tablet Take 1 tablet once daily for 1 week then increase to 1 tablet twice daily 60 tablet 2 02/23/2022 02/28/2022 Discontinued Comment on above: Take 1 tablet once d aily for 1 week then increase to 1 tablet twice daily Take 1 tablet by cesar th daily with breakfast. Take 1 tablet by cesar th twice daily before meals. Take 500 mg by mouth daily with breakfast. miconazole nitrate 20 mg/ml vaginal cream (1 source) Azole Antifungal Start: End: miconazole (MONISTAT 7) 2 % vaginal cream Indications: Yeast vaginitis Use 1 Applicator vaginally daily at bedtime for 7 days. 45 g 02/01/2024 02/08/2024 Active oseltamivir 75 mg oral capsule (1 source) Neuraminidase Inhibitor Start: End: take 1 capsule by mouth twice daily oseltamivir (TAMIFLU) 75 mg capsule Indications: Acute cough , Exposure to the flu Take 1 capsule by mouth two times a day for 5 days. 10 capsule 0 04/16/2023 04/21/2023 Active Comment on above: Take 1 capsule by mo uth two times a day for 5 days. vit no.124/iron/folic ( VITAMIN ORAL) (20 sources) vit no.124/iron/folic ( VITAMIN ORAL) Take by mouth. Active Completed/Discontinued Medications Medication Drug Class(es) Dates Sig (Normalized) Sig (Original) amoxicillin 875 mg / clavulanate 125 mg oral tablet (1 source) Penicillin-class Antibacterial Start: 03-02-2021 End: 03-09-2021 take 1 tablet by mouth twice daily amoxicillin-clavul anic acid (AUGMENTIN) 875-125 mg per tablet Take 1 tablet by mouth twice daily for 7 days. 14 tablet 03/02/2021 03/09/2021 aspirin 81 mg delayed release oral tablet (20 sources) Platelet Aggregation Inhibitor, Nonsteroidal Anti-inflammatory Drug Start: 12-07-2023 End: 05-21-2024 take 1 tablet by mouth once daily aspirin, enteric coated (ECOTRIN LOW STRENGTH) 81 mg EC tablet Indications: with uncertain dates in first trimester (HCC) Take 1 tablet by mouth once daily. 90 tablet 3 12/07/2023 05/21/2024 Discontinued azithromycin 250 mg oral tablet (2 sources) Macrolide Antimicrobial Start: 02-19-2024 End: 07-25-2024 Azithromycin (Zithromax Z-Kalyani) 250 mg tablet Discontinued 0 PO .COMPLEX February 19, 2024 1:00am July 25, 2024 3:12pm For 250 mg dose pack: take 500 mg today (day 1), then 250 mg for 4 days (days 2-5) benzonatate 200 mg oral capsule (2 sources) Non-narcotic Antitussive Start: 02-19-2024 End: 07-25-2024 take 1 capsule by mouth three times daily as needed for cough Benzonatate 200 mg capsule Discontinued 200 mg PO THREE TIMES A DAY as needed for cough 21 February 19, 2024 1:00am July 25, 2024 3:12pm drospirenone / Ethinyl Estradiol (20 sources) Progestin, Estrogen Start: 11-23-2023 End: 12-07-2023 take 1 tablet by mouth once daily Drospirenone-Ethin yl Estradiol (LESLIE 28) 3-0.02 mg per tablet Take 1 tablet by mouth once daily for 28 days. 28 tablet 11 11/23/2023 12/07/2023 Discontinued Start: 11-23-2023 End: 12-21-2023 take 1 tablet by mouth once daily Drospirenone-Ethinyl Estradiol (LESLIE 28) 3-0.02 mg per tablet Take 1 tablet by mouth once daily for 28 days. 28 tablet 11 11/23/2023 12/21/2023 Active Start: 07-17-2022 End: 11-23-2023 take 1 tablet by mouth once daily Drospirenone-Ethinyl Estradiol (LESLIE 28) 3-0.02 mg per tablet Take 1 tablet by mouth once daily for 28 days. 28 tablet 2 07/17/2022 11/23/2023 Discontinued Start: 07-17-2022 take 1 tablet by cesar th once daily Drospirenone-Ethinyl Estradiol (LESLIE 28) 3-0.02 mg per tablet Take 1 tablet by mouth once daily for 28 days. 28 tablet 2 07/17/2022 Active Start: 07-17-2022 End: 08-14-2022 take 1 tablet by mouth once daily Drospirenone-Ethinyl Estradiol (LESLIE 28) 3-0.02 mg per tablet Take 1 tablet by mouth once daily for 28 days. 28 tablet 2 07/17/2022 08/14/2022 Active Start: 03-02-2022 take 1 tablet by cesar th once daily Drospirenone-Ethinyl Estradiol (LESLIE 28) 3-0.02 mg per tablet TAKE 1 TABLET BY MOUTH ONCE DAILY FOR 28 DAYS 28 tablet 2 03/02/2022 Active Start: 03-02-2022 End: 03-30-2022 take 1 tablet by mouth once daily Drospirenone-Ethinyl Estradiol (LESLIE 28) 3-0.02 mg per tablet TAKE 1 TABLET BY MOUTH ONCE DAILY FOR 28 DAYS 28 tablet 2 03/02/2022 03/30/2022 Active Start: 02-03-2022 End: 03-02-2022 take 1 tablet by mouth once daily Drospirenone-Ethinyl Estradiol (LESLIE, 28,) 3-0.02 mg per tablet Take 1 tablet by mouth once daily for 28 days. 28 tablet 0 02/03/2022 03/02/2022 Discontinued Start: 02-03-2022 End: 03-03-2022 take 1 tablet by mouth once daily Drospirenone-Ethinyl Estradiol (LESLIE, 28,) 3-0.02 mg per tablet Take 1 tablet by mouth once daily for 28 days. 28 tablet 0 02/03/2022 03/03/2022 Active Comment on above: Take 1 tablet by cesar th once daily for 28 days. TAKE 1 TABLET BY CESAR ONCE DAILY FOR 28 DAYS lactobacillus acidophilus 460 mg oral capsule (20 sources) Start : 09-19 End: 04-25 take 1 capsule by mouth once daily Lactobacillus acidophilus (FLORAJEN ACIDOPHILUS) 20 billion cell cap Take 1 capsule by mouth once daily. 30 capsule 0 09/19/2021 04/26/2023 Discontinued (Course of therapy completed) Comment on above: Take 1 capsule by mo [facility] once daily. methylPREDNISolone 4 mg oral tablet (2 sources) Corticosteroid Start : 02-06 End: 04-01 methylPREDNISolone (MEDROL, KALYANI,) 4 mg Dose-Pack Take by mouth per package instructions 21 tablet 02/06/2021 04/01/2021 Discontinued naproxen 500 mg oral tablet (3 sources) Nonsteroidal Anti-inflammatory Drug Start : 06-04 End: 07-25 take 1 tablet by mouth twice daily Naproxen 500 mg tablet Discontinued 500 mg PO TWICE A DAY June 05, 2023 12:00am July 25, 2024 3:12pm norethindrone acetate 5 mg oral tablet (9 sources) Start : 11-17 End: 02-03 take 1 tablet by mouth once daily norethindrone (AYGESTIN) 5 mg tablet Take 1 tablet by mouth once daily. 10 tablet 5 11/17/2020 02/03/2022 Discontinued (Course of therapy completed) Comment on above: Take 1 tablet by cesar once daily. omeprazole 20 mg delayed release oral capsule (7 sources) Proton Pump Inhibitor Start : 09-24 End: 01-11 take 1 capsule by mouth once daily omeprazole (PRILOSEC) 20 mg capsule Indications: Epigastric pain Take 1 capsule by mouth once daily. 30 capsule 09/24/2020 01/11/2022 Discontinued (Course of therapy completed) Comment on above: Take 1 capsule by mo [facility] once daily. phentermine hydrochloride 37.5 mg oral tablet (16 sources) Sympathomimetic Amine Anorectic Start : 11-20 End: 02-18 Phentermine HCl 37.5 mg tablet Indications: Class 1 obesity with body mass index (BMI) of 32.0 to 32.9 in adult, unspecified obesity type, unspecified whether serious comorbidity present Take 1/2 tablet daily in the morning. BMI 32.95 15 tablet 2 11/21/2023 12/07/2023 Discontinued Start: 08-07-2023 End: 11-05-2023 Phentermine HCl 37.5 mg tabl et Indications: Class 1 obesity with body mass index (BMI) of 34.0 to 34.9 in adult, unspecified obesity type, unspecified whether serious comorbidity present Take 1/2 tablet daily in the morning. 15 tablet 2 08/07/2023 11/05/2023 Active Start: 07-09-2023 End: 08-06-2023 Phentermine HCl 37.5 mg tabl et Indications: Class 2 obesity with body mass index (BMI) of 37.0 to 37.9 in adult, unspecified obesity type, unspecified whether serious comorbidity present Take 1 tablet daily before breakfast. 30 tablet 0 07/09/2023 08/06/2023 Active Start: 06-06-2023 End: 07-06-2023 Phentermine HCl 37.5 mg tabl et Indications: Class 2 obesity with body mass index (BMI) of 37.0 to 37.9 in adult, unspecified obesity type, unspecified whether serious comorbidity present Take 1 tablet daily before breakfast. 30 tablet 0 06/06/2023 07/06/2023 Active Start: 05-14-2023 End: 07-25-2024 take 1 tablet by mouth once daily 30 minutes before mealtime Phentermine (Lomaira) 8 mg tablet Discontinued 8 mg PO DAILY June 05, 2023 12:00am July 25, 2024 3:12pm must administer 30 minutes before meals/food 0.25 mg, 0.5 mg dose 1.5 ml semaglutide 1.34 mg/ml pen injector (15 sources) Start: 07-12-2022 End: 04-26-2023 semaglutide (OZEMPIC) 0.25 m g or 0.5 mg(2 mg/1.5 mL) pen Inject 0.5 mg subcutaneously one time a week. 3 mL 1 07/12/2022 04/26/2023 Discontinued Start: 03-13-2022 End: 07-12-2022 semaglutide (OZEMPIC) 0.25 m g or 0.5 mg(2 mg/1.5 mL) pen Indications: Impaired fasting glucose , Obesity, Class II, BMI 35-39.9 Inject 0.25 mg subcutaneously one time a week. 1.5 mL 2 03/13/2022 07/12/2022 Discontinued Comment on above: Inject 0.25 mg subcu taneously one time a week. Inject 0.5 mg subcut aneously one time a week. sertraline 50 mg oral tablet (7 sources) Serotonin Reuptake Inhibitor Start: End: 2 take 1 tablet by mouth once daily sertraline (ZOLOFT) 50 mg tablet Indications: JORJE (generalized anxiety disorder) Take 1 tablet by mouth once daily. 90 tablet 1 11/19/2020 01/11/2022 Discontinued (Course of therapy completed) Comment on above: Take 1 tablet by cesar th once daily. topiramate 25 mg oral tablet (6 sources) Start: End: topiramate (TOPAMAX) 25 mg tablet Take 1 tablet daily and in one week increase 2 tablets daily 90 tablet 11/21/2023 12/07/2023 Discontinued Problems Active Problems Problem Classification Problem Date Documented Date Episodic/Chronic Abdominal pain (20 sources) Right upper quadrant pain; Translations: [Right upper quadrant pain] Onset: 11-03-2019 Resolved: 11-23-2023 06-16-2020 Episodic Contraceptive and procreative management (2 sources) Oral contraception; Translations: [Encounter for surveillance of contraceptive pills] Onset: 05-21-2024 11-23-2023 Episodic Early or threatened labor (2 sources) False labor at or after 37 completed weeks of gestation; Translations: [False labor, unspecified] 07-28-2024 Episodic Headache; including migraine (1 source) Headache; including migraine; Translations: [Nonintractable headache, unspecified chronicity pattern, unspecified headache type] Onset: 05-18-2024 Hemorrhage during ; abruptio placenta; placenta previa (3 sources) Threatened miscarriage in first trimester; Translations: [Threatened ] Onset: 12-24-2023 12-24-2023 Episodic Immunizations and screening for infectious disease (6 sources) Suspected disease caused by 2019-nCoV; Translations: [Suspected COVID-19 virus infection] Onset: 05-21-2024 Episodic Mycoses (1 source) Candidiasis of vagina; Translations: [Yeast vaginitis] 02-01-2024 Episodic Other complications of (20 sources) Maternal obesity complicating , childbirth and the puerperium, antepartum; Translations: [Obesity complicating , first trimester] Onset: 12-07-2023 12-07-2023 Chronic Other complications of (1 source) Obesity complicating , third trimester; Translations: [Obesity affecting in third trimester, unspecified obesity type (HCC)] Onset: 12-07-2023 Chronic Other complications of (1 source) Obesity complicating , first trimester; Translations: [Obesity affecting in first trimester, unspecified obesity type] Onset: 12-07-2023 Chronic Other complications of (20 sources) History of pre-eclampsia; Translations: [Supervision of with other poor reproductive or obstetric history, unspecified trimester] Onset: 05-16-2017 11-25-2019 Episodic Other complications of (20 sources) High risk ; Translations: [Supervision of high risk , unspecified, first trimester] Onset: 12-07-2023 12-07-2023 Episodic Other complications of (20 sources) Single umbilical artery; Translations: [Supervision of other high risk pregnancies, unspecified trimester] Onset: 03-28-2024 03-31-2024 Episodic Other complications of (1 source) distress affecting management of mother; Translations: [Maternal care for abnormalities of the heart rate or rhythm, unspecified trimester, not applicable or unspecified] 04-16-2024 Episodic Other complications of (20 sources) Complication of , childbirth and/or the puerperium; Translations: [Other specified related conditions, unspecified trimester] Onset: 05-18-2024 05-18-2024 Episodic Other complications of (2 sources) Supervision of high risk , unspecified, third trimester; Translations: [Supervision of high risk in third trimester (HCC)] Onset: 05-21-2024 Episodic Other complications of (2 sources) Supervision of other high risk pregnancies, unspecified trimester; Translations: [Single umbilical artery affecting management of mother, antepartum, single gestation (HCC)] Onset: 04-16-2024 Episodic Other complications of (1 source) Supervision of high risk , unspecified, second trimester; Translations: [Supervision of high risk in second trimester (HCC)] Onset: 05-21-2024 Episodic Other connective tissue disease (1 source) Spasm; Translations: [Other muscle spasm] Episodic Other connective tissue disease (3 sources) Lateral epicondylitis of right humerus; Translations: [Lateral epicondylitis, right elbow] 06-05-2023 Episodic Other endocrine disorders (20 sources) Polycystic ovary syndrome; Translations: [Polycystic ovarian syndrome] Onset: 12-07-2023 Chronic Other female genital disorders (1 source) Pruritus of vagina; Translations: [Other specified noninflammatory disorders of vagina] 01-31-2024 Episodic Other lower respiratory disease (1 source) Cough; Translations: [Acute cough] 04-16-2023 Episodic Other nervous system disorders (3 sources) Carpal tunnel syndrome of right wrist; Translations: [Carpal tunnel syndrome, right upper limb] 06-05-2023 Chronic Other non-traumatic joint disorders (1 source) Pain in right shoulder; Translations: [Pain in joint, shoulder region] 08-02-2021 Episodic Other non-traumatic joint disorders (1 source) Acute ankle pain; Translations: [Pain in left ankle and joints of left foot] 02-07-2021 Episodic Other non-traumatic joint disorders (1 source) Pain in left shoulder; Translations: [Pain in joint, shoulder region] 03-02-2021 Episodic Other nutritional; endocrine; and metabolic disorders (20 sources) Body mass index 30+ - obesity; Translations: [Body mass index (BMI) 32.0-32.9, adult] Onset: 03-29-2018 11-25-2019 Chronic Other nutritional; endocrine; and metabolic disorders (20 sources) Obese class II; Translations: [Obesity, unspecified] Onset: 04-05-2021 04-05-2021 Chronic Other nutritional; endocrine; and metabolic disorders (10 sources) Obesity; Translations: [Other obesity due to excess calories] Chronic Other nutritional; endocrine; and metabolic disorders (3 sources) Obese class I; Translations: [Obesity, unspecified] Chronic Other nutritional; endocrine; and metabolic disorders (1 source) Unintentional weight gain; Translations: [Abnormal weight gain] Episodic Other and delivery including normal (20 sources) ; Translations: [Encounter for supervision of normal , unspecified, unspecified trimester] Onset: 03-28-2018 Resolved: 05-21-2024 03-28-2018 Episodic Other screening for suspected conditions (not mental disorders or infectious disease) (20 sources) Patient encounter status; Translations: [Encounter for screening for lipoid disorders] Onset: 06-05-2022 Resolved: 11-23-2023 Episodic Other upper respiratory infections (4 sources) Acute upper respiratory infection; Translations: [Acute upper respiratory infection, unspecified] Onset: 05-26-2024 05-26-2024 Episodic Otitis media and related conditions (3 sources) Acute left otitis media; Translations: [Otitis media, unspecified, left ear] Onset: 05-26-2024 04-16-2023 Episodic Residual codes; unclassified (20 sources) Rubella non-immune; Translations: [Other specified health status] Onset: 03-29-2018 05-08-2018 Episodic Residual codes; unclassified (1 source) Flushing; Translations: [Flushing] Episodic Residual codes; unclassified (3 sources) Gestation period, 7 weeks; Translations: [Less than 8 weeks gestation of ] 12-10-2023 Episodic Residual codes; unclassified (2 sources) Gestation period, 12 weeks; Translations: [12 weeks gestation of ] 01-31-2024 Episodic Residual codes; unclassified (2 sources) Gestation period, 16 weeks; Translations: [16 weeks gestation of ] 02-28-2024 Episodic Residual codes; unclassified (2 sources) Gestation period, 20 weeks; Translations: [20 weeks gestation of ] 03-28-2024 Episodic Residual codes; unclassified (2 sources) Gestation period, 21 weeks; Translations: [21 weeks gestation of ] 03-31-2024 Episodic Residual codes; unclassified (1 source) Gestation period, 24 weeks; Translations: [24 weeks gestation of ] 04-22-2024 Episodic Residual codes; unclassified (2 sources) Personal history of other complications of , childbirth and the puerperium; Translations: [History of pre-eclampsia] Onset: 12-07-2023 Episodic Residual codes; unclassified (3 sources) Gestation period, 28 weeks; Translations: [28 weeks gestation of ] 05-21-2024 Episodic Residual codes; unclassified (1 source) Gestation period, 30 weeks; Translations: [30 weeks gestation of ] 06-04-2024 Episodic Residual codes; unclassified (2 sources) Gestation period, 32 weeks; Translations: [32 weeks gestation of ] 06-18-2024 Episodic Residual codes; unclassified (1 source) Gestation period, 34 weeks; Translations: [34 weeks gestation of ] 07-02-2024 Episodic Residual codes; unclassified (1 source) Gestation period, 36 weeks; Translations: [36 weeks gestation of ] 07-16-2024 Episodic Residual codes; unclassified (1 source) 37 weeks gestation of ; Translations: [37 weeks gestation of (HCC)] Onset: 07-23-2024 Episodic Residual codes; unclassified (1 source) 36 weeks gestation of ; Translations: [36 weeks gestation of (HCC)] Onset: 07-16-2024 Episodic Residual codes; unclassified (1 source) 34 weeks gestation of ; Translations: [34 weeks gestation of (HCC)] Onset: 07-02-2024 Episodic Residual codes; unclassified (1 source) 32 weeks gestation of ; Translations: [32 weeks gestation of (HCC)] Onset: 06-18-2024 Episodic Residual codes; unclassified (1 source) 30 weeks gestation of ; Translations: [30 weeks gestation of (HCC)] Onset: 06-04-2024 Episodic Residual codes; unclassified (1 source) 20 weeks gestation of ; Translations: [20 weeks gestation of (HCC)] Onset: 05-21-2024 Episodic Residual codes; unclassified (1 source) 24 weeks gestation of ; Translations: [24 weeks gestation of ([facility])] Onset: 05-21-2024 Episodic Residual codes; unclassified (1 source) 28 weeks gestation of ; Translations: [28 weeks gestation of (HCC)] Onset: 05-21-2024 Episodic Residual codes; unclassified (3 sources) Gestation period, 37 weeks; Translations: [37 weeks gestation of ] 07-23-2024 Episodic Screening and history of mental health and substance abuse codes (20 sources) H/O: anxiety state; Translations: [Personal history of other mental and behavioral disorders] Onset: 12-07-2023 12-07-2023 Episodic Spondylosis; intervertebral disc disorders; other back problems (1 source) Backache; Translations: [Dorsalgia, unspecified] Episodic Superficial injury; contusion (3 sources) Contusion of rib; Translations: [Contusion of left front wall of thorax, initial encounter] 07-30-2020 Episodic Unclassified (20 sources) [facility] - [facility] Onset: 12-04-2023 12-04-2023 Unclassified (1 source) Cough, unspecified; Translations: [Cough, unspecified] Onset: 03-10-2024 Past or Other Problems Problem Classification Problem Date Documented Da te Episodic/Chronic Anxiety disorders (20 sources) Generalized anxiety disorder; Translations: [Generalized anxiety disorder] Onset: 10-20-202 0 Resolved: 4 06-16-2020 Chronic Biliary tract disease (20 sources) Cholelithiasis without obstruction; Translations: [Calculus of gallbladder without cholecystitis without obstruction] Onset: 0 Resolved: 0 08-14-2019 Episodic Cancer of cervix (20 sources) Low grade squamous intraepithelial lesion on cervical Papanicolaou smear; Translations: [Low grade squamous intraepithelial lesion on cytologic smear of cervix (LGSIL)] Onset: 6 11-25-2019 Episodic Cardiac and circulatory congenital anomalies (20 sources) Single umbilical artery; Translations: [Congenital absence and hypoplasia of umbilical artery] Onset: 4 Resolved: 5 01-31-2024 Chronic Diabetes mellitus without complication (20 sources) Hyperglycemia; Translations: [Impaired fasting glucose] Onset: 0 Resolved: 0 Episodic Disorders of lipid metabolism (20 sources) Hypertriglyceridemia; Translations: [Pure hyperglyceridemia] Onset: 3 Resolved: 4 Chronic Esophageal disorders (20 sources) Gastroesophageal reflux disease; Translations: [Gastro-esophageal reflux disease without esophagitis] Onset: 0 Resolved: 4 11-03-2019 Chronic Headache; including migraine (20 sources) Migraine variants; Translations: [Other migraine, not intractable, without status migrainosus] Onset: 3 Resolved: 4 11-25-2019 Chronic Menstrual disorders (20 sources) Irregular periods; Translations: [Irregular menstruation, unspecified] Onset: 0 Resolved: 4 09-01-2019 Chronic Nonmalignant breast conditions (20 sources) Inversion of nipple; Translations: [Other signs and symptoms in breast] Onset: 4 11-23-2023 Episodic Other complications of (3 sources) Missed miscarriage; Translations: [Missed ] Onset: 9 05-06-2018 Episodic Other complications of (2 sources) Supervision of high risk , unspecified, first trimester; Translations: [Encounter for supervision of high risk in first trimester, antepartum] Onset: 4 Episodic Other female genital disorders (20 sources) Vaginal discharge; Translations: [Other specified noninflammatory disorders of vagina] Onset: 5 Resolved: 5 11-23-2023 Episodic Other gastrointestinal disorders (20 sources) Diarrhea; Translations: [Diarrhea, unspecified] Onset: 1 Resolved: 4 06-16-2020 Episodic Other liver diseases (20 sources) Elevated liver enzymes level; Translations: [Abnormal levels of other serum enzymes] Onset: 1 Resolved: 4 06-16-2020 Episodic Other upper respiratory disease (20 sources) Seasonal allergy; Translations: [Other seasonal allergic rhinitis] Resolved: 4 09-01-2019 Chronic Residual codes; unclassified (3 sources) FH: Gastrointestinal disease; Translations: [Family history of other diseases of the digestive system] Onset: 9 05-08-2018 Episodic Residual codes; unclassified (20 sources) FH: Congenital anomaly; Translations: [Family history of other congenital malformations, deformations and chromosomal abnormalities] Onset: 4 12-07-2023 Episodic Residual codes; unclassified (20 sources) H/O: miscarriage; Translations: [Personal history of other complications of , childbirth and the puerperium] Onset: 4 Resolved: 4 12-07-2023 Episodic Residual codes; unclassified (1 source) Family history of other congenital malformations, deformations and chromosomal abnormalities; Translations: [Family history of congenital anomaly] Onset: 4 Episodic Residual codes; unclassified (1 source) 21 weeks gestation of ; Translations: [21 weeks gestation of ] Onset: 5 Episodic Residual codes; unclassified (1 source) 16 weeks gestation of ; Translations: [16 weeks gestation of ] Onset: 5 Episodic Residual codes; unclassified (1 source) Less than 8 weeks gestation of ; Translations: [7 weeks gestation of ] Onset: 4 Episodic Thyroid disorders (4 sources) Disorder of thyroid gland; Translations: [Disorder of thyroid, unspecified] Onset: 4 12-28-2023 Episodic Viral infection (20 sources) Disease caused by 2019-nCoV; Translations: [COVID-19] Onset: 0 Resolved: 4 01-31-2020 Episodic Results Test Name Value Interpretation Reference Range Facility Urine Cultureon 07-27-2024 [facility] Mixed Gram Positive Organisms [place] Count 25,000-50,000 [facility] Mixed contaminants. Submit a new specimen if indicated. Normal [facility] Comment on above: Performed By: #### M 100.2200 #### [facility] [address] [place], [place], [id number] AST(SGOT)Ordered By: Mona Nieves on 07-25-2024 AST [Catalytic activity/Vol] 14 U/L <32 [facility] Comment on above: Performed By: #### L 501.1105, L501.1400, L100.0500, L501.0900, L501.4405, L501.4100 #### [facility] [address] [place], [place], [id number] Automated blood erythrocyte countOrdered By: Jenise Nieves on 07-25-2024 RBC (Bld) [#/Vol] 3.74 10*6/uL Low 4.2-5.4 [facility] Comment on above: Performed By: #### L 501.1105, L501.1400, L100.0500, L501.0900, L501.4405, L501.4100 #### [facility] [address] [place], [place], [id number] Automated blood hematocrit ( percentage)Ordered By: Jenise Nieves on 07-25-2024 Hematocrit (Bld) [Volume fraction] 32.2 % Low 37-47 [facility] Comment on above: Performed By: #### L 501.1105, L501.1400, L100.0500, L501.0900, L501.4405, L501.4100 #### [facility] [address] [place], [place], [id number] Bilirubin Test strip Ql (U)O rdered By: Jenise Nieves on 07-25-2024 Bilirubin Ql (U) Negative Negative [facility] CBC-Complete Blood Cnt No Di ffon 07-25-2024 RDW SD 42.3 fl Normal 35.1-43.9 [facility] Comment on above: Performed By: #### L 501.1105, L501.1400, L100.0500, L501.0900, L501.4405, L501.4100 #### [facility] [address] [place], [place], [id number] Erythrocyte distribution wid th ratioOrdered By: Jenise Nieves on 07-25-2024 Erythrocyte distribution width (RBC) [Ratio] 13.6 % 11.6-14.6 [facility] Comment on above: Performed By: #### L 501.1105, L501.1400, L100.0500, L501.0900, L501.4405, L501.4100 #### [facility] [address] [place], [place], [id number] Erythrocyte distribution wid th standard deviationOrdered By: Jenise Nieves on 07-25-2024 Erythrocyte distribution width (RBC) [Ratio] 42.3 fl 35.1-43.9 [facility] Glomerular filtration rate ( GFR) estimation/1.73 sq m using serum, plasma, or whole bOrdered By: Jenise Nieves on 07-25-2024 GFR/1.73 sq M.predicted among non-blacks MDRD (S/P/Bld) [Vol rate/Area] 111 mL/min/{1.73_m2} >60 [facility] Comment on above: mL/min/1.73m2 CKD-EP I Creatinine Equation (2020) Result Comment: mL/m in/1.73m2 CKD-EPI Creatinine Equation (2020) Performed By: #### L 501.1105, L501.1400, L100.0500, L501.0900, L501.4405, L501.4100 #### [facility] [address] [place], [place], [id number] Hemoglobin measurementOrdere d By: Jenise Nieves on 07-25-2024 Hemoglobin (Bld) [Mass/Vol] 10.7 g/dL Low 12.0-15.0 [facility] Comment on above: Performed By: #### L 501.1105, L501.1400, L100.0500, L501.0900, L501.4405, L501.4100 #### [facility] [address] [place], [place], [id number] Ketones Test strip Ql (U)Ord ered By: Jenise Nieves on 07-25-2024 Ketones Ql (U) Negative Negative [facility] MCV (mean corpuscular volume ) determinationOrdered By: Jenise Nieves on 07-25-2024 MCV (RBC) [Entitic vol] 86.1 fL 81-99 [facility] Comment on above: Performed By: #### L 501.1105, L501.1400, L100.0500, L501.0900, L501.4405, L501.4100 #### [facility] [address] [place], [place], [id number] Mean corpuscular hemoglobin (MCH) determinationOrdered By: Jenise Nieves on 07-25-2024 MCH (RBC) [Entitic mass] 28.6 pg 27.0-32.0 [facility] Comment on above: Performed By: #### L 501.1105, L501.1400, L100.0500, L501.0900, L501.4405, L501.4100 #### [facility] [address] [place], [place], [id number] Mean corpuscular hemoglobin concentration (MCHC) determinationOrdered By: Jenise Nieves on 07-25-2024 MCHC (RBC) [Mass/Vol] 33.2 g/dL 32-[address] [facility] Comment on above: Performed By: #### L 501.1105, L501.1400, L100.0500, L501.0900, L501.4405, L501.4100 #### [facility] [address] [place], [address] Mean platelet volume determi nationOrdered By: Jenise Nieves on 07-25-2024 Platelet mean volume (Bld) [Entitic vol] 12.3 fL High 6.2-12.0 [facility] Comment on above: Performed By: #### L 501.1105, L501.1400, L100.0500, L501.0900, L501.4405, L501.4100 #### [facility] [address] [place] [place], [address] OB Triage Physician Noteon 0 07-25-2024 OB Triage Physician Note [facility] Medical Records Department [address] [place] [address] OB Triage Physician Note 07/25/24 1757 MR#: [id number] Acct: [id number] Name: RICHARD SMITH Rep #: [id number] : 1995 29 From: Jenise Nieves MD PCP: Care Physician,No Primary Status:DEP CLI Y Location: [facility] HPI - General General Date of Admission: 07/25/24 Date of Service: 07/25/24 Chief Complaint: R/o labor HPI Narrative RICHARD SMITH, is a 29 F who presents with contractions. Intermittent mild contractions. No cervical change. PFSH PFSH Allergy/AdvReac Type Severity Reaction Status Date / Time sumatriptan (From Imitrex) AdvReac PT UNSURE Verified 07/25/24 16:43 OF REACTION Social History Smoking Status: Never smoker substance use type: does not use NST FHR Rate Baby A Baseline: 140 Variability:: Moderate Accelerations:: 15 x 15 Decelerations:: None NST Reactive:: Yes Uterine Activity:: irregular Assessment Plan (1) 37 weeks gestation of : (2) Threatened labor at term: PLAN: Plan Discharge Follow up as scheduled 07/28/24721 Date Jenise Nieves MD Cosigner Signature (if applicable): Date CC: Dr. Jenise Nieves MD; No Primary Care Physician Signed Normal [facility] Platelet countOrdered By: Lucian Nieves on 07-25-2024 Platelets (Bld) [#/Vol] 139 10*3/uL Low 150-450 [facility] Comment on above: Performed By: #### L 501.1105, L501.1400, L100.0500, L501.0900, L501.4405, L501.4100 #### [facility] [address] [place], [place], [id number] Protein Test strip Ql (U)Ord ered By: Jenise Nieves on 07-25-2024 Protein Ql (U) 15 mg/dl High Negative [facility] Protein+Creatinine Ratio,Uri neon 07-25-2024 PROT:CRE RATIO 179 mg/g CRE Normal 0-200 [facility] Comment on above: Performed By: #### L 501.1105, L501.1400, L100.0500, L501.0900, L501.4405, L501.4100 #### [facility] [address] [place], [address] UR CREAT 86.50 mg/dL Normal 28.00-217.00 [facility] Comment on above: Performed By: #### L 501.1105, L501.1400, L100.0500, L501.0900, L501.4405, L501.4100 #### [facility] [address] [place], [address] Random urine creatinine lashae urement (mass/volume)Ordered By: Jenise Nieves on 07-25-2024 Creatinine Unsp time (U) [Mass/Vol] 86.50 mg/dL 28.00-217.00 [facility] Serum Creatinine AND GFRon 0 07-25-2024 ECRCL 136.77 ml/min Normal 50-250 [facility] Comment on above: Performed By: #### L 501.1105, L501.1400, L100.0500, L501.0900, L501.4405, L501.4100 #### [facility] [address] [facility] [address] [place], [place], [address] Serum creatinine measurement (mass/volume)Ordered By: Jenise Nieves on 07-25-2024 Creatinine [Mass/Vol] 0.74 mg/dL 0.70-1.[address] [facility] Comment on above: Performed By: #### L 501.1105, L501.1400, L100.0500, L501.0900, L501.4405, L501.4100 #### [facility] [address] [facility] [place], [place], [id number] Serum or plasma alanine balderas otransferase (ALT) measurementOrdered By: Jenise Nieves on 07-25-2024 ALT [Catalytic activity/Vol] 7 U/L <35 [facility] Comment on above: Performed By: #### L 501.1105, L501.1400, L100.0500, L501.0900, L501.4405, L501.4100 #### [facility] [address] [place], [place], [address] Serum or plasma uric acid me asurement (mass/volume)Ordered By: Jenise Nieves on 07-25-2024 Urate [Mass/Vol] 4.8 mg/dL 2.6-6.0 [facility] Comment on above: The drugs N-Acetylcy steine and Metamizole may falsely depress this assay. Uric Acidon 07-25-2024 URIC 4.8 mg/dL Normal 2.6-6.0 [facility] Comment on above: Result Comment: The drugs N-Acetylcysteine and Metamizole may falsely depress this assay. Performed By: #### L 501.1105, L501.1400, L100.0500, L501.0900, L501.4405, L501.4100 #### [facility] [address] [place], [address] Urinalysis, Routine (Dipstic k)on 07-25-2024 BILIRUBIN URINE Negative Normal Negative [facility] Comment on above: Order Comment: CLEAN CATCH Performed By: #### L 400.2010 #### [facility] [address] [place], [address] GLUCOSE, UR Normal Normal Normal [facility] Comment on above: Order Comment: CLEAN CATCH Performed By: #### L 400.2010 #### [facility] [address] [place], [address] KETONE UR Negative Normal Negative [facility] Comment on above: Order Comment: CLEAN CATCH Performed By: #### L 400.2010 #### [facility] [address] [place], [address] LEUK ESTERASE Negative Normal Negative [facility] Comment on above: Order Comment: CLEAN CATCH Performed By: #### L 400.2010 #### [facility] [address] [place], [address] OCCULT BLOOD-UR 10 /ul Abnormal Negative [facility] Comment on above: Order Comment: CLEAN CATCH Performed By: #### L 400.2010 #### [facility] [address] [place], [address] pH UR 6.0 Normal 5.0 - 8.0 [facility] Comment on above: Order Comment: CLEAN CATCH Performed By: #### L 400.2010 #### [facility] [address] [place], [address] PROT DIPSTX 15 mg/dl Abnormal Negative [facility] Comment on above: Order Comment: CLEAN CATCH Performed By: #### L 400.2010 #### [facility] [address] [place], [address] SP.GR. DIPSTX 1.015 Normal 1.002-1.030 [facility] Comment on above: Order Comment: CLEAN CATCH Performed By: #### L 400.2010 #### [facility] [address] [place], [address] UROBILI Normal Normal Normal [facility] Comment on above: Order Comment: CLEAN CATCH Performed By: #### L 400.2010 #### [facility] [address] [place], [address] Urine clarityOrdered By: Mary Nieves on 07-25-2024 Clarity (U) Clear Clear [facility] Comment on above: Order Comment: CLEAN CATCH Performed By: #### L 400.2010 #### [facility] [address] [place], [address] Urine color determinationOrd ered By: Jenise Nieves on 07-25-2024 Color (U) Yellow Yellow [facility] Comment on above: Order Comment: CLEAN CATCH Performed By: #### L 400.2010 #### [facility] [address] [place], [address] Urine cultureOrdered By: Mary Nieves on 07-25-2024 Bacteria identified Cx Nom (U) Positive Abnormal [facility] Urine glucose detectionOrder ed By: Jenise Nieves on 07-25-2024 Glucose Ql (U) Normal mg/dl Normal [facility] Urine leukocyte esterase det ection by dipstickOrdered By: Jenise Nieves on 07-25-2024 Leukocyte esterase Test strip Ql (U) Negative Negative [facility] Urine nitrite test by dipsti ckOrdered By: Jenise Nieves on 07-25-2024 Nitrite Ql (U) Negative Negative [facility] Comment on above: Order Comment: CLEAN CATCH Performed By: #### L 400.2010 #### [facility] [address] [place], [place], [address] Urine pHOrdered By: Jenise Nieves on 07-25-2024 pH (U) 6.0 [pH] 5.0 - 8.0 [facility] Urine protein measurement (m ass/volume)Ordered By: Jenise Nieves on 07-25-2024 Protein (U) [Mass/Vol] 15.5 mg/dL High 0.0-12.0 [facility] Comment on above: Performed By: #### L 501.1105, L501.1400, L100.0500, L501.0900, L501.4405, L501.4100 #### [facility] [address] [place], [place], [id number] Urine protein/creatinine mas s ratioOrdered By: Jenise Nieves on 07-25-2024 Protein/Creatinine (U) [Mass ratio] 179 mg/g CRE 0-200 [facility] Urine specific gravity measu rementOrdered By: Jenise Nieves on 07-25-2024 Specific gravity (U) [Rel density] 1.015 1.002-1.030 [facility] Urine urobilinogen measureme ntOrdered By: Jenise Nieves on 07-25-2024 Urobilinogen Ql (U) Normal mg/dl Normal [facility] White blood cell (WBC) count Ordered By: Jenise Nieves on 07-25-2024 WBC (Bld) [#/Vol] 8.5 10*3/uL 4.4-11.0 [facility] Comment on above: Performed By: #### L 501.1105, L501.1400, L100.0500, L501.0900, L501.4405, L501.4100 #### [facility] [address] [place], [address] Free T4 [Mass/Vol]on 025 Interpretation and review of laboratory results Abnormal [facility] No Panel Informationon 07-23 [facility] T4 FREE/FREE THYROXINEon 06- 18-2025 Free T4 [Mass/Vol] 0.5 ng/dL Low 0.9 - 1.7 ng/dL [facility] T4 Free SerPl-mCncon 025 Free T4 [Mass/Vol] 0.5 ng/dL Low 0.9-1.7 [facility] Comment on above: Order Comment: Teodora sanderson Type: BLOOD SPECIMENOrdering Facility: [facility] Address: [address] [place] [address] Performed By: #### 3 016-3, 3024-7 ####[facility] [id number] [place] [address] [place] THYROID STIMULATING HORMONEo n 07-23-2024 TSH Qn 4.01 m[IU]/L [facility] Comment on above: If the patient is pr egnant, TSH reference range varies by gestational period: First Trimester (weeks 9-12): 0.180-2.990 mIU/L Second Trimester: 0.110-3.980 mIU/L Third Trimester: 0.480-4.710 mIU/L Loki Montero et al. A Practical Approach for the Verifications and Determination of Site- and Trimester-Specific Reference Intervals for Thyroid Function tests in . Thyroid, 2019:29:3:412-420. Clifford Lock, et al. 2017 Guidelines of the [place] Thyroid Association for the Diagnosis and Management of Thyroid Disease during and the . Thyroid, 2017:27:3:315-389. TSH Qnon 07-23-2024 Interpretation and review of laboratory results Normal [facility] TSH SerPl-aCncon 07-23-2024 TSH Qn 4.010 m[IU]/L Normal 0.270-4.200 [facility] Comment on above: Order Comment: Teodora sanderson Type: BLOOD SPECIMENOrdering Facility: [facility] Address: [address] [place] [address] Result Comment: If t he patient is , TSH reference range varies by gestational period: First Trimester (weeks 9-12): 0.180-2.990 mIU/L Second Trimester: 0.110-3.980 mIU/L Third Trimester: 0.480-4.710 mIU/L Loki Montero et al. A Practical Approach for the Verifications and Determination of Site- and Trimester-Specific Reference Intervals for Thyroid Function tests in . Thyroid, 2019:29:3:412-420. Clifford Lock, et al. 2017 Guidelines of the [place] Thy[employer] for the Diagnosis and Management of Thyroid Disease during and the . Thyroid, 2017:27:3:315-389. Performed By: #### 3 016-3, 3024-7 ####[facility] [id number] [address] URINE OB DIP B/Oon 5 Glucose Ql (U) Negative Neg mg/dL [facility] Interpretation and review of laboratory results Normal [facility] Protein.monoclonal (U) [Mass/Vol] trace Neg mg/dL [facility] Examination level ultrasound on 07-16-2024 [facility] Radiology Study observation (narrative) [facility] ROUTINE, GROUP B ST REPTOCOCCUS BY PCRon 07-16-2024 ROUTINE, GROUP B STREPTOCOCCUS BY PCR Not detected Normal [facility] Comment on above: Performed By: #### G BPCR ####[facility] [id number] [address] URINE OB DIP B/Oon 5 Glucose Ql (U) Negative Neg mg/dL [facility] Interpretation and review of laboratory results Normal [facility] Protein.monoclonal (U) [Mass/Vol] Negative Neg mg/dL [facility] CNPNon 07-09-2024 CNPN Telephone (OBGYWM) RICHARD SMITH ([id number]) 1995 F Date Time Provider Department 07/09/24 ELSA CHAUDHARY OBLAILA During your visit today, we recorded the following information about you: Alan Haynes MA 07/09/2024 3:40 PM Signed Received FMLA paperwork. ALAN Alvarado Courtney, APRN.CNM 07/09/2024 4:08 PM Signed Unfortunately, there is not a medical indication or reason for her to be written off of work. That being said, she can discuss an early JUAN DIEGO with her HR department. She can take FMLA at anytime but will only get a total of 12 weeks / year. She will need to discuss with employer. FADY Galvin Morgan, MA 07/17/2024 3:00 PM Signed Patient notified. Awaiting response to see how she would like to proceed. ALAN Alvarado Morgan, MA 07/24/2024 1:34 PM Signed FMLA paperwork has been completed and faxed back to employer as requested. Patient notified via [employer]. Alan Haynes MA Allergies As of Date: 07/09/2024 Noted Allergy Reaction IMITREX (SUMATRIPTAN) 11/16/2010 14 - Other: See Comments Comments: Patient stated her jaw locked up and hurt really bad Date Reviewed: 07/02/2024 Reviewed by: Gypsy Mart LPN - Fully Assessed Prescriptions as of 07/24/2024 - fluticasone (FLONASE) 50 mcg/actuation nasal spray Use 2 sprays in each nostril once daily. Rinse mouth after use. - levothyroxine (SYNTHROID) 100 mcg tablet Take 1 tablet by mouth daily before breakfast. - vit no.124/iron/folic ( VITAMIN ORAL) Take by mouth. - cetirizine (ZYRTEC) 10 mg tablet Take 1 tablet by mouth once daily. - fluticasone (FLONASE) 50 mcg/actuation nasal spray Use 2 Sprays in each nostril once daily. Rinse mouth after use. Problem List As Of Date 07/09/2024 Noted Resolved Migraine variant [G43.809] 01/07/2013 12/07/2023 Seasonal allergies [J30.2] 12/07/2023 Papanicolaou smear of cervix with low grade squ*02/12/2015 Calculus of gallbladder without biliary obstruc*08/10/2019 08/14/2019 Cholelithiasis [K80.20] 08/13/2019 08/14/2019 Biliary colic [K80.50] 08/13/2019 08/14/2019 History of pre-eclampsia [Z87.59] 05/16/2017 Elevated glucose [R73.09] 09/01/2019 11/25/2019 Irregular periods/menstrual cycles [N92.6] 09/01/2019 11/23/2023 Abdominal wall pain [R10.9] 11/03/2019 06/16/2020 Gastroesophageal reflux disease [K21.9] 11/03/2019 12/07/2023 JORJE (generalized anxiety disorder) [F41.1] 11/25/2019 12/07/2023 COVID-19 virus infection [U07.1] 01/30/2020 12/07/2023 RUQ pain [R10.11] 06/16/2020 11/23/2023 Diarrhea [R19.7] 06/16/2020 11/23/2023 Elevated liver enzymes [R74.8] 06/16/2020 12/07/2023 Contraceptive management [Z30.9] 06/05/2022 Hypertriglyceridemia [E78.1] 06/05/2022 12/07/2023 Dyslipidemia (high LDL; low HDL) [E78.5] 06/05/2022 12/07/2023 Pure hypercholesterolemia [E78.00] 06/05/2022 12/07/2023 Family history of congenital anomaly [Z82.79] 12/07/2023 History of anxiety [Z86.59] 12/07/2023 Obesity affecting in first trimester *12/07/2023 Inverted nipple [N64.59] 12/07/2023 History of miscarriage [Z87.59] 12/07/2023 12/18/2023 PCOS (polycystic ovarian syndrome) [E28.2] 12/07/2023 with uncertain dates in first trimest*12/07/2023 05/21/2024 Rubella non-immune status, antepartum [O09.899,*12/10/2023 Elevated TSH [R79.89] 12/10/2023 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] 01/31/2024 05/21/2024 Single umbilical artery affecting management of*03/28/2024 Vaginal discharge during (HCC) [O26.8*05/18/2024 05/21/2024 Vaginal discharge during in second tr*05/18/2024 05/21/2024 Abdominal cramping affecting (HCC) [O*05/18/2024 High-risk in third trimester (HCC) [O*05/21/2024 Encounter Status:Closed by ELSA CHAUDHARY on 07/09/24 Normal [facility] URINE OB DIP B/Oon Glucose Ql (U) Negative Neg mg/dL [facility] Interpretation and review of laboratory results Normal [facility] Protein.monoclonal (U) [Mass/Vol] Negative Neg mg/dL [facility] CNPNon 07-01-2024 CNPN Telephone (OBGYWM) RICHARD SMITH ([id number]) 1995 F Date Time Provider Department 07/01/24 JENISE NIEVES OBCARLOSWM During your visit today, we recorded the following information about you: Jenise Walker RN 07/01/2024 10:40 AM Signed 34w1d Patient called with c/o low back pain that started last night along with pelvic pressure. Asking if she should go to the ER. She's been having cramping, but at her last visit was told that was normal. Also, c/o nausea. Denies urinary issues. No VB or LOF. Good FM. Offered patient 3:30 today with SHANE. Patient declined since she has to orange picker her son from school at 3:20. States she will just keep her appointment for tomorrow. HAYDEN James Jennifer, MD 07/01/2024 12:08 PM Signed agree Allergies As of Date: 07/01/2024 Noted Allergy Reaction IMITREX (SUMATRIPTAN) 11/16/2010 14 - Other: See Comments Comments: Patient stated her jaw locked up and hurt really bad Date Reviewed: 06/18/2024 Reviewed by: Ankita Hawkins MA - Fully Assessed Reason for Visit: Question (OB Question) [3842] Prescriptions as of 07/01/2024 - fluticasone (FLONASE) 50 mcg/actuation nasal spray Use 2 sprays in each nostril once daily. Rinse mouth after use. - levothyroxine (SYNTHROID) 100 mcg tablet Take 1 tablet by mouth daily before breakfast. - vit no.124/iron/folic ( VITAMIN ORAL) Take by mouth. - cetirizine (ZYRTEC) 10 mg tablet Take 1 tablet by mouth once daily. - fluticasone (FLONASE) 50 mcg/actuation nasal spray Use 2 Sprays in each nostril once daily. Rinse mouth after use. Problem List As Of Date 07/01/2024 Noted Resolved Migraine variant [G43.809] 01/07/2013 12/07/2023 Seasonal allergies [J30.2] 12/07/2023 Papanicolaou smear of cervix with low grade squ*02/12/2015 Calculus of gallbladder without biliary obstruc*08/10/2019 08/14/2019 Cholelithiasis [K80.20] 08/13/2019 08/14/2019 Biliary colic [K80.50] 08/13/2019 08/14/2019 History of pre-eclampsia [Z87.59] 05/16/2017 Elevated glucose [R73.09] 09/01/2019 11/25/2019 Irregular periods/menstrual cycles [N92.6] 09/01/2019 11/23/2023 Abdominal wall pain [R10.9] 11/03/2019 06/16/2020 Gastroesophageal reflux disease [K21.9] 11/03/2019 12/07/2023 JORJE (generalized anxiety disorder) [F41.1] 11/25/2019 12/07/2023 COVID-19 virus infection [U07.1] 01/30/2020 12/07/2023 RUQ pain [R10.11] 06/16/2020 11/23/2023 Diarrhea [R19.7] 06/16/2020 11/23/2023 Elevated liver enzymes [R74.8] 06/16/2020 12/07/2023 Contraceptive management [Z30.9] 06/05/2022 Hypertriglyceridemia [E78.1] 06/05/2022 12/07/2023 Dyslipidemia (high LDL; low HDL) [E78.5] 06/05/2022 12/07/2023 Pure hypercholesterolemia [E78.00] 06/05/2022 12/07/2023 Family history of congenital anomaly [Z82.79] 12/07/2023 History of anxiety [Z86.59] 12/07/2023 Obesity affecting in first trimester *12/07/2023 Inverted nipple [N64.59] 12/07/2023 History of miscarriage [Z87.59] 12/07/2023 12/18/2023 PCOS (polycystic ovarian syndrome) [E28.2] 12/07/2023 with uncertain dates in first trimest*12/07/2023 05/21/2024 Rubella non-immune status, antepartum [O09.899,*12/10/2023 Elevated TSH [R79.89] 12/10/2023 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] 01/31/2024 05/21/2024 Single umbilical artery affecting management of*03/28/2024 Vaginal discharge during (HCC) [O26.8*05/18/2024 05/21/2024 Vaginal discharge during in second tr*05/18/2024 05/21/2024 Abdominal cramping affecting (HCC) [O*05/18/2024 High-risk in third trimester (HCC) [O*05/21/2024 Encounter Status:Closed by JENISE NIEVES on 07/01/24 Normal [facility] Examination level ultrasound on 06-18-2024 [facility] Radiology Study observation (narrative) [facility] Rox 06-05-2024 CNPN Telephone ([id number]) RICHARD SMITH ([id number]) 1995 F Date Time Provider Department 06/05/24 JENISE CAZARES [id number] During your visit today, we recorded the following information about you: Jenise Cazares RN 06/05/2024 8:35 AM Signed 3rd risk assessment form submitted 06/05/2024. Jenise Cazares RN Allergies As of Date: 06/05/2024 Noted Allergy Reaction IMITREX (SUMATRIPTAN) 11/16/2010 14 - Other: See Comments Comments: Patient stated her jaw locked up and hurt really bad Date Reviewed: 06/04/2024 Reviewed by: Alan Haynes MA - Fully Assessed Reason for Visit: Assembler Wet Wash - Other [3602] Cmt: PRACaitlin Prescriptions as of 06/05/2024 - fluticasone (FLONASE) 50 mcg/actuation nasal spray Use 2 sprays in each nostril once daily. Rinse mouth after use. - levothyroxine (SYNTHROID) 100 mcg tablet Take 1 tablet by mouth daily before breakfast. - vit no.124/iron/folic ( VITAMIN ORAL) Take by mouth. - cetirizine (ZYRTEC) 10 mg tablet Take 1 tablet by mouth once daily. - fluticasone (FLONASE) 50 mcg/actuation nasal spray Use 2 Sprays in each nostril once daily. Rinse mouth after use. Problem List As Of Date 06/05/2024 Noted Resolved Migraine variant [G43.809] 01/07/2013 12/07/2023 Seasonal allergies [J30.2] 12/07/2023 Papanicolaou smear of cervix with low grade squ*02/12/2015 Calculus of gallbladder without biliary obstruc*08/10/2019 08/14/2019 Cholelithiasis [K80.20] 08/13/2019 08/14/2019 Biliary colic [K80.50] 08/13/2019 08/14/2019 History of pre-eclampsia [Z87.59] 05/16/2017 Elevated glucose [R73.09] 09/01/2019 11/25/2019 Irregular periods/menstrual cycles [N92.6] 09/01/2019 11/23/2023 Abdominal wall pain [R10.9] 11/03/2019 06/16/2020 Gastroesophageal reflux disease [K21.9] 11/03/2019 12/07/2023 JORJE (generalized anxiety disorder) [F41.1] 11/25/2019 12/07/2023 COVID-19 virus infection [U07.1] 01/30/2020 12/07/2023 RUQ pain [R10.11] 06/16/2020 11/23/2023 Diarrhea [R19.7] 06/16/2020 11/23/2023 Elevated liver enzymes [R74.8] 06/16/2020 12/07/2023 Contraceptive management [Z30.9] 06/05/2022 Hypertriglyceridemia [E78.1] 06/05/2022 12/07/2023 Dyslipidemia (high LDL; low HDL) [E78.5] 06/05/2022 12/07/2023 Pure hypercholesterolemia [E78.00] 06/05/2022 12/07/2023 Family history of congenital anomaly [Z82.79] 12/07/2023 History of anxiety [Z86.59] 12/07/2023 Obesity affecting in first trimester *12/07/2023 Inverted nipple [N64.59] 12/07/2023 History of miscarriage [Z87.59] 12/07/2023 12/18/2023 PCOS (polycystic ovarian syndrome) [E28.2] 12/07/2023 with uncertain dates in first trimest*12/07/2023 05/21/2024 Rubella non-immune status, antepartum [O09.899,*12/10/2023 Elevated TSH [R79.89] 12/10/2023 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] 01/31/2024 05/21/2024 Single umbilical artery affecting management of*03/28/2024 Vaginal discharge during (HCC) [O26.8*05/18/2024 05/21/2024 Vaginal discharge during in second tr*05/18/2024 05/21/2024 Abdominal cramping affecting (HCC) [O*05/18/2024 High-risk in third trimester (HCC) [O*05/21/2024 Encounter Status:Closed by JENISE CAZARES on 06/05/24 [facility] CNOVon 05-26-2024 CNOV Office Visit (UCWSTR ) RICHARD SMITH ([id number]) 1995 F Date Time Provider Department 05/26/24 12:15 PM ERIC GASPAR [facility] During your visit today, we recorded the following information about you: Temperature Pulse Respiration Blood pressure 98.5 degrees 96/minute 16/minute 122/72 Weight 104.6 kg Eric Gaspar, ZANE.[employer] 05/26/2024 1:11 PM Signed [facility] Subjective HPI HPI Richard Smith is a 29 year old female who presents today for CC of cough, congestion, right ear pain. This started 5 days ago. Has tried otc medication for relief. Symptoms are worsened by nothing. No sick exposures. Patient is 29w . nonsmoker. .Patient presents with: Cough: right ear pain, sore throat x 5 days, chest congestion x this am PAST MEDICAL HISTORY Diagnosis Date Abdominal cramping affecting (HCC) 05/18/2024 Abnormal Pap smear of cervix anxiety Calculus of gallbladder without biliary obstruction 08/10/2019 Cervical intraepithelial neoplasia grade 1 2016 COVID-19 virus infection 01/30/2020 Positive test 01/17/20 (symptoms started 01/15) Overall symptoms gradually improving and almost resolved today. Completed course of decadron for respiratory symptoms. Reassured patient that feels that her course of illness is near complete and happy that her symptoms seem to be resolved. No further action at this time. Dyslipidemia (high LDL; low HDL) 06/05/2022 Elevated glucose 09/01/2019 Patient had elevated glucose on last BMP. BMI elevated, No FM history of diabetes. 08/2019: Hba1c 5.3 Elevated liver enzymes 2019 Noted hepatic steatosis on RUQ US in 2019 JORJE (generalized anxiety disorder) 11/25/2019 Likes current dose of zoloft. Continue. 11/25/2019 JORJE 7:11 PHQ 9: 4 Counseling referral placed. Interested in medications, will plan to start zoloft, titrate from 25 mg to 50 mg in next week. Will message in 4 weeks on symptoms. HISTORICAL prozac in past with minimal relief. Gastroesophageal reflux disease 11/03/2019 Symptoms of burning after eating, didn't seem to improve with Pepcid alone -Plan: begin PPI trial x 4 weeks, recommended she return in 2-4 weeks or sooner if symptoms are not improving Hypertriglyceridemia 06/05/2022 Inverted nipple Migraine variant 01/07/2013 Seems to be more tension headache then migraine. ibuprofen prn has provided relief Historical: Patient tried amitriptyline which helped with headaches but made too fatigued Pure hypercholesterolemia 06/05/2022 Seasonal allergies flonase. Shingles outbreak PAST SURGICAL HISTORY Procedure Laterality Date CHOLECYSTECTOMY HX 08/2019 DANDC, DIAG AND/OR THERAPEUTIC 2019 Missed ab ALLERGIES Imitrex [Sumatriptan] MEDICATIONS levothyroxine (SYNTHROID) 100 mcg tablet Take 1 tablet by mouth daily before breakfast. vit no.124/iron/folic ( VITAMIN ORAL) Take by mouth. cetirizine (ZYRTEC) 10 mg tablet Take 1 tablet by mouth once daily. fluticasone (FLONASE) 50 mcg/actuation nasal spray Use 2 Sprays in each nostril once daily. Rinse mouth after use. FAMILY HISTORY Problem Relation Age of Onset Anxiety disorder Mother No Known Problems Father Anxiety disorder Sister No Known Problems Sister No Known Problems Brother No Known Problems Brother Hypertension Maternal Grandmother Lipids Maternal Grandmother COPD Maternal Grandfather other (smoker) Maternal Grandfather Lung Cancer Paternal Grandmother Cancer Paternal Grandfather bone? Social History Tobacco Use Smoking status: Never Smokeless tobacco: Never Vaping Use Vaping status: Never Used Substance Use Topics Alcohol use: Not Currently Comment: social Drug use: No Review of Systems Constitutional: Negative for chills, fatigue and fever. HENT: Positive for ear pain, rhinorrhea and sore throat. Negative for ear discharge, sinus pressure and sinus pain. Eyes: Negative for discharge and redness. Respiratory: Positive for cough. Negative for shortness of breath and wheezing. Cardiovascular: Negative for chest pain. Skin: Negative for rash. Objective BP 122/72 Pulse 96 Temp 36.9 ?C (98.5 ?F) Resp 16 Wt 104.6 kg (230 lb 9.6 oz) LMP 10/16/2023 (Approximate) SpO2 99% BMI 38.97 kg/m? Physical Exam Constitutional: General: She is not in acute distress. Appearance: She is not toxic-appearing or diaphoretic. HENT: Head: Normocephalic and atraumatic. Right Ear: Hearing, ear canal and external ear normal. Tympanic membrane is erythematous and bulging. Tympanic membrane is not perforated. Left Ear: Hearing, tympanic membrane, ear canal and external ear normal. Nose: Nose normal. Mouth/Throat: Pharynx: Uvula midline. Eyes: General: Lids are normal. No scleral icterus. Right eye: No discharge. Left eye: No discharge. Conjunctiva/sclera: Conjunctivae normal. Pupils: Pupils (more content not included)... Normal [facility] CBC W Auto Differential pane l (Bld)on 05-21-2024 Basophils (Bld) [#/Vol] 10*3/uL Normal <0.11 [facility] Comment on above: Order Comment: Speci men Type: BLOOD SPECIMENOrdering Facility: [facility] Address: [address] [place] [address] Performed By: #### 5 7021-8 ####[facility] [id number] [place] [address] [place] Basophils/100 WBC (Bld) 0.2 % Normal [facility] Comment on above: Order Comment: Speci men Type: BLOOD SPECIMENOrdering Facility: [facility] Address: [address] [place] [address] Performed By: #### 5 7021-8 ####[facility] [id number] [place] [address] [place] Differential cell count method Nom (Bld) Auto Normal [facility] Comment on above: Order Comment: Speci men Type: BLOOD SPECIMENOrdering Facility: [facility] Address: [address] [place] [address] Performed By: #### 5 7021-8 ####[facility] [id number] [place] [address] [place] Eosinophils (Bld) [#/Vol] 0.19 10*3/uL Normal <0.46 [facility] Comment on above: Order Comment: Speci men Type: BLOOD SPECIMENOrdering Facility: [facility] Address: [address] [place] [address] Performed By: #### 5 7021-8 ####[facility] [id number] [place] [address] [place] Eosinophils/100 WBC (Bld) 1.7 % Normal [facility] Comment on above: Order Comment: Speci men Type: BLOOD SPECIMENOrdering Facility: [facility] Address: [address] [place] [address] Performed By: #### 5 7021-8 ####[facility] [id number] [place] [address] [place] Erythrocyte distribution width (RBC) [Ratio] 13.5 % Normal 11.5-15.0 [facility] Comment on above: Order Comment: Speci men Type: BLOOD SPECIMENOrdering Facility: [facility] Address: [address] [place] [address] Performed By: #### 5 7021-8 ####[facility] [id number] [place] [address] [place] Hematocrit (Bld) [Volume fraction] 36.1 % Normal 36.0-46.0 [facility] Comment on above: Order Comment: Speci men Type: BLOOD SPECIMENOrdering Facility: [facility] Address: [address] [place] [address] Performed By: #### 5 7021-8 ####[facility] MILLTOWNCLIA [id number] [place] [address] [place] Hemoglobin (Bld) [Mass/Vol] 12.3 g/dL Normal 11.5-15.5 [facility] Comment on above: Order Comment: Speci men Type: BLOOD SPECIMENOrdering Facility: [facility] Address: [address] [place] [address] Performed By: #### 5 7021-8 ####[facility]ARK[facility]AY[facility]CL[facility] [id number] [place] [address] [place] Immature granulocytes (Bld) [#/Vol] 0.13 10*3/uL High <0.10 [facility] Comment on above: Order Comment: Speci men Type: BLOOD SPECIMENOrdering Facility: [facility] Address: [address] [place] [address] Performed By: #### 5 7021-8 ####[facility] [id number] [place] [address] [place] Immature granulocytes/100 WBC (Bld) 1.2 % Normal [facility] Comment on above: Order Comment: Speci men Type: BLOOD SPECIMENOrdering Facility: [facility] Address: [address] [place] [address] Performed By: #### 5 7021-8 ####[facility] [id number] [place] [address] [place] Lymphocytes (Bld) [#/Vol] 1.66 10*3/uL Normal 1.00-4.00 [facility] Comment on above: Order Comment: Speci men Type: BLOOD SPECIMENOrdering Facility: [facility] Address: [address] [place] [address] Performed By: #### 5 7021-8 ####[facility]ARK[facility]AY[facility]CL[facility] [id number] [place] [address] [place] Lymphocytes/100 WBC (Bld) 14.9 % Normal [facility] Comment on above: Order Comment: Speci men Type: BLOOD SPECIMENOrdering Facility: [facility] Address: [address] [place] [address] Performed By: #### 5 7021-8 ####[facility] LUIS FERNANDODANVILLEEMILIE [id number] [place] [address] [place] MCH (RBC) [Entitic mass] 30.2 pg Normal 26.0-34.0 [facility] Comment on above: Order Comment: Speci men Type: BLOOD SPECIMENOrdering Facility: [facility] Address: [address] [place] [address] Performed By: #### 5 7021-8 ####[facility] [id number] [place] [address] [place] MCHC (RBC) [Mass/Vol] 34.1 g/dL Normal 30.5-36.0 [facility] Comment on above: Order Comment: Speci men Type: BLOOD SPECIMENOrdering Facility: [facility] Address: [address] [place] [address] Performed By: #### 5 7021-8 ####[facility]ENTER[facility] [id number] [place] [address] [place] MCV (RBC) [Entitic vol] 88.7 fL Normal 80.0-100.0 [facility] Comment on above: Order Comment: Speci men Type: BLOOD SPECIMENOrdering Facility: [facility] Address: [address] [place] [address] Performed By: #### 5 7021-8 ####[facility] PARKWAYNCLI [id number] [place] [address] [place] Monocytes (Bld) [#/Vol] 0.57 10*3/uL Normal <0.87 [facility] Comment on above: Order Comment: Speci men Type: BLOOD SPECIMENOrdering Facility: [facility] Address: [address] [place] [address] Performed By: #### 5 7021-8 ####[facility] [id number] [place] [address] [place] Monocytes/100 WBC (Bld) 5.1 % Normal [facility] Comment on above: Order Comment: Speci men Type: BLOOD SPECIMENOrdering Facility: [facility] Address: [address] [place] [address] Performed By: #### 5 7021-8 ####[facility] [id number] [place] [address] [place] Neutrophils (Bld) [#/Vol] 8.58 10*3/uL High 1.45-7.50 [facility] Comment on above: Order Comment: Speci men Type: BLOOD SPECIMENOrdering Facility: [facility] Address: [address] [place] [address] Performed By: #### 5 7021-8 ####[facility] [id number] [place] [address] [place] Neutrophils/100 WBC (Bld) 76.9 % Normal [facility] Comment on above: Order Comment: Speci men Type: BLOOD SPECIMENOrdering Facility: [facility] Address: [address] [place] [address] Performed By: #### 5 7021-8 ####[facility] [id number] [place] [address] [place] Nucleated RBC (Bld) [#/Vol] 10*3/uL Normal <0.01 [facility] Comment on above: Order Comment: Speci men Type: BLOOD SPECIMENOrdering Facility: [facility] Address: [address] [place] [address] Performed By: #### 5 7021-8 ####[facility] FERNANDOWNCLIA [id number] [place] [address] [place] Nucleated RBC/100 WBC (Bld) [Ratio] 0.0 /100 WBC Normal [facility] Comment on above: Order Comment: Speci men Type: BLOOD SPECIMENOrdering Facility: [facility] Address: [address] [place] [address] Performed By: #### 5 7021-8 ####[facility] [id number] [place] [address] [place] Platelet mean volume (Bld) [Entitic vol] 11.5 fL Normal 9.0-12.7 [facility] Comment on above: Order Comment: Speci men Type: BLOOD SPECIMENOrdering Facility: [facility] Address: [address] [place] [address] Performed By: #### 5 7021-8 ####[facility] [id number] [place] [address] [place] Platelets (Bld) [#/Vol] 173 10*3/uL Normal 150-400 [facility] Comment on above: Order Comment: Speci men Type: BLOOD SPECIMENOrdering Facility: [facility] Address: [address] [place] [address] Performed By: #### 5 7021-8 ####[facility] [id number] [place] [address] [place] RBC (Bld) [#/Vol] 4.07 10*6/uL Normal 3.90-5.20 [facility] Comment on above: Order Comment: Speci men Type: BLOOD SPECIMENOrdering Facility: [facility] Address: [address] [place] [address] Performed By: #### 5 7021-8 ####[facility] [id number] [place] [address] [place] WBC (Bld) [#/Vol] 11.15 10*3/uL High 3.70-11.00 [facility] Comment on above: Order Comment: Teodora sadnerson Type: BLOOD SPECIMENOrdering Facility: [facility] Address: [address] [place] [address] Performed By: #### 5 7021-8 ####[facility] [id number] [place] [address] [place] Examination level ultrasound on 05-21-2024 [facility] Radiology Study observation (narrative) [facility] GESTATIONAL GLUCOSE SCREEN, 1-HOUR, 50 GRAM, NON-FASTINGon 05-21-2024 Glucose [Mass/Vol] 131 mg/dL Normal 74-134 [facility] Comment on above: Order Comment: Teodora sanderson Type: BLOOD SPECIMENOrdering Facility: [facility] Address: [address] [place] [address] Result Comment: [facility] Congress of Obstetricians and Gynecologists (Shaye/Lisandro) guidelines state a gestational diabetes mellitus positive screen is made, in women not previously diagnosed with overt diabetes, when the 1 hr plasma glucose level is equal to or above 140 mg/dL. The [facility] Transportation Associate and [facility] [place] recommends a 135 mg/dL cutoff. Performed By: #### G LTGST ####[facility] [id number] [place] [address] [place] Prot/Creat Uron 05-21-2024 Protein/Creatinine (U) [Mass ratio] 0.14 mg/mg Normal <0.15 [facility] Comment on above: Order Comment: Teodora sanderson Type: URINE SPECIMEN Ordering Facility: [facility] Address: [address] [place] [address] Result Comment: Adul t Proteinuria Categories: <0.15 mg/mg is considered normal to mildly increased 0.15 - 0.50 mg/mg is considered moderately increased >0.50 mg/mg is considered severely increased KDIGO. (2013). KDIGO 2012 Clinical Practice Guideline for the Evaluation and Management of Chronic Kidney Disease. Official Journal of the International Society of Nephrology, 3(1), 1-150. Performed By: #### 2 890-2 #### [facility] CLIA [id number] [address] [place] [address] [place] Protein/Creatinine (U) [Mass ratio]on 05-21-2024 Creatinine (U) [Mass/Vol] 149.6 mg/dL Normal 20.0-300.0 [facility] Comment on above: Order Comment: Speci men Type: URINE SPECIMEN Ordering Facility: [facility] Address: [address] [place] [address] Performed By: #### 2 890-2 #### [facility] CLIA [id number] [address] [place] [address] [place] Protein (U) [Mass/Vol] 21 mg/dL High 0-20 [facility] Comment on above: Order Comment: Speci men Type: URINE SPECIMEN Ordering Facility: [facility] Address: [address] [place] [address] Performed By: #### 2 890-2 #### [facility] CLIA [id number] [address] [place] [address] [place] Reagin and Treponema pallidu m IgG and IgM [Interp]on 05-21-2024 T. pallidum IgG+IgM IA Ql (S) Non-Reactive Normal Nonreactive [facility] Comment on above: Order Comment: Speci men Type: URINE SPECIMEN Ordering Facility: [facility] Address: [address] [place] [address] Performed By: #### 2 890-2 #### [facility] CLIA [id number] [address] [place] [address] [place] Reagin+T pallidum IgG+IgM Se rPl-Impon 05-21-2024 Reagin and Treponema pallidum IgG and IgM [Interp] Cannot exclude recent Treponemal infection if specimen collected within 7-10 days after appearance of suspect lesions or 2-3 weeks after an exposure. Clinical correlation is required. Normal [facility] Comment on above: Order Comment: Speci men Type: URINE SPECIMEN Ordering Facility: [facility] Address: [address] [place] [address] Performed By: #### 2 890-2 #### [facility] CLIA [id number] [address] [place] [address] [place] T4 Free SerPl-mCncon 025 Free T4 [Mass/Vol] 0.6 ng/dL Low 0.9-1.7 [facility] Comment on above: Order Comment: Speci men Type: BLOOD SPECIMENOrdering Facility: [facility] Address: [address] [place] [address] Performed By: #### 3 016-3, 3024-7 ####[facility] [id number] [place] [address] [place] TSH SerPl-aCncon 05-21-2024 TSH Qn 2.310 m[IU]/L Normal 0.270-4.200 [facility] Comment on above: Order Comment: Speci men Type: BLOOD SPECIMENOrdering Facility: [facility] Address: [address] [place] [address] Result Comment: If t he patient is , TSH reference range varies by gestational period: First Trimester (weeks 9-12): 0.180-2.990 mIU/L Second Trimester: 0.110-3.980 mIU/L Third Trimester: 0.480-4.710 mIU/L Loki Montero et al. A Practical Approach for the Verifications and Determination of Site- and Trimester-Specific Reference Intervals for Thyroid Function tests in . Thyroid, 2019:29:3:412-420. Clifford Lock et al. 2017 Guidelines of the [place] Thyroid Association for the Diagnosis and Management of Thyroid Disease during and the . Thyroid, 2017:27:3:315-389. Performed By: #### 3 016-3, 3024-7 ####[facility] [id number] [place] [address] [place] BACTERIAL VAGINOSIS NAATon 0 05-18-2024 Lactobacillus crispatus+gasseri+mary senii + Gardnerella vaginalis + Atopobium vaginae rRNA MARK ANTHONY+probe Ql (Vag fld) Not detected Normal Not detected [facility] Comment on above: Order Comment: Speci men Type: SWAB Ordering [facility]: [facility] Address: [address] [place] [address] Performed By: #### Niyah VAMP, 34352-6 #### [facility] CLIA [id number] [address] [place] [address] [place] Bacteria Ur Culton Bacteria identified Cx Nom (U) ORGANISM ID: 1 10,000 -<50,000 CFU/ml Normal urogenital osvaldo Normal [facility] Comment on above: Performed By: #### 6 30-4 #### [facility] CLIA [id number] [address] [place] [address] [place] C. trachomatis+N. gonorrhoea e DNA MARK ANTHONY+probe Ql (Unsp spec)on 05-18-2024 C. trachomatis rRNA MARK NATHONY+probe Ql (Unsp spec) Not detected Normal Not detected [facility] Comment on above: Order Comment: Speci men Type: SWAB Ordering Facility: [facility] Address: [address] [place] [address] Performed By: #### B VAMP, 71429-4 #### [facility] CLIA [id number] [address] [place] [address] [place] N. gonorrhoeae rRNA MARK ANTHONY+probe Ql (Unsp spec) Not detected Normal Not detected [facility] Comment on above: Order Comment: Speci men Type: SWAB Ordering Facility: [facility] Address: [address] [place] [address] Performed By: #### B VAMP, 41382-3 #### [facility] CLIA [id number] [address] [place] [address] [place] DARYA/TRICHOMONAS NAATon 0 05-18-2024 C. glabrata RNA MARK ANTHONY+probe Ql (Vag fld) Not detected Normal Not detected [facility] Comment on above: Order Comment: Speci men Type: SWAB Ordering Facility: [facility] Address: [address] [place] [address] Performed By: #### C VTV #### [facility] CLIA [id number] [address] [place] [address] [place] Darya sp DNA MARK ANTHONY+probe Ql (Vag fld) Not detected Normal Not detected [facility] Comment on above: Order Comment: Speci men Type: SWAB Ordering Facility: [facility] Address: [address] [place] [address] Result Comment: The Darya species group target includes C. albicans, C. tropicalis, C. parapsilosis, and C. dubliniensis. Performed By: #### C VTV #### [facility] CLIA [id number] [address] [place] [address] [place] T. vaginalis DNA MARK ANTHONY+probe Ql (Unsp spec) Not detected Normal Not detected [facility] Comment on above: Order Comment: Speci men Type: SWAB Ordering Facility: [facility] Address: [address] [place] [address] Performed By: #### C VTV #### [facility] CLIA [id number] [address] [place] [address] [place] CBC W Auto Differential pane l (Bld)on 05-18-2024 Basophils (Bld) [#/Vol] 0.03 10*3/uL Normal <0.11 [facility] Comment on above: Order Comment: Speci men Type: BLOOD SPECIMEN Ordering Facility: [facility] Address: [address] [place] [address] Performed By: #### 5 7021-8 #### [facility] CLIA [id number] [address] [place] Basophils/100 WBC (Bld) 0.4 % Normal [facility] Comment on above: Order Comment: Speci men Type: BLOOD SPECIMEN Ordering Facility: [facility] Address: [address] [place] [address] Performed By: #### 5 7021-8 #### [facility] CLIA [id number] [address] [place] Differential cell count method Nom (Bld) Auto Normal [facility] Comment on above: Order Comment: Speci men Type: BLOOD SPECIMEN Ordering Facility: [facility] Address: [address] [place] [address] Performed By: #### 5 7021-8 #### [facility] CLIA [id number] [address] [place] Eosinophils (Bld) [#/Vol] 0.15 10*3/uL Normal <0.46 [facility] Comment on above: Order Comment: Speci men Type: BLOOD SPECIMEN Ordering Facility: [facility] Address: [address] [place] [address] Performed By: #### 5 7021-8 #### [facility] CLIA [id number] [address] Eosinophils/100 WBC (Bld) 1.8 % Normal [facility] Comment on above: Order Comment: Speci men Type: BLOOD SPECIMEN Ordering Facility: [facility] Address: [address] [place] [address] Performed By: #### 5 7021-8 #### [facility] CLIA [id number] [address] [place] Erythrocyte distribution width (RBC) [Ratio] 13.4 % Normal 11.5-15.0 [facility] Comment on above: Order Comment: Speci men Type: BLOOD SPECIMEN Ordering Facility: [facility] Address: [address] [place] [address] Performed By: #### 5 7021-8 #### [facility] CLIA [id number] [address] [place] [address] [place] Hematocrit (Bld) [Volume fraction] 32.3 % Low 36.0-46.0 [facility] Comment on above: Order Comment: Speci men Type: BLOOD SPECIMEN Ordering Facility: [facility] Address: [address] [place] [address] Performed By: #### 5 7021-8 #### [facility] CLIA [id number] [address] [place] [address] [place] Hemoglobin (Bld) [Mass/Vol] 11.1 g/dL Low 11.5-15.5 [facility] Comment on above: Order Comment: Speci men Type: BLOOD SPECIMEN Ordering Facility: [facility] Address: [address] [place] [address] Performed By: #### 5 7021-8 #### [facility] CLIA [id number] [address] [place] [address] [place] Immature granulocytes (Bld) [#/Vol] 0.08 10*3/uL Normal <0.10 [facility] Comment on above: Order Comment: Speci men Type: BLOOD SPECIMEN Ordering Facility: [facility] Address: [address] [place] [address] Performed By: #### 5 7021-8 #### [facility] CLIA [id number] [address] [place] [address] [place] Immature granulocytes/100 WBC (Bld) 0.9 % Normal [facility] Comment on above: Order Comment: Speci men Type: BLOOD SPECIMEN Ordering Facility: [facility] Address: [address] [place] [address] Performed By: #### 5 7021-8 #### [facility] CLIA [id number] [address] [place] [address] [place] Lymphocytes (Bld) [#/Vol] 1.52 10*3/uL Normal 1.00-4.00 [facility] Comment on above: Order Comment: Speci men Type: BLOOD SPECIMEN Ordering Facility: [facility] Address: [address] [place] [address] Performed By: #### 5 7021-8 #### [facility] CLIA [id number] [address] [place] [address] [place] Lymphocytes/100 WBC (Bld) 18.0 % Normal [facility] Comment on above: Order Comment: Speci men Type: BLOOD SPECIMEN Ordering Facility: [facility] Address: [address] [place] [address] Performed By: #### 5 7021-8 #### [facility] CLIA [id number] [address] MCH (RBC) [Entitic mass] 30.7 pg Normal 26.0-34.0 [facility] Comment on above: Order Comment: Speci men Type: BLOOD SPECIMEN Ordering Facility: [facility] Address: [address] [place] [address] Performed By: #### 5 7021-8 #### [facility] CLIA [id number] [address] MCHC (RBC) [Mass/Vol] 34.4 g/dL Normal 30.5-36.0 [facility] Comment on above: Order Comment: Speci men Type: BLOOD SPECIMEN Ordering Facility: [facility] Address: [address] [place] [address] Performed By: #### 5 7021-8 #### [facility] CLIA [id number] [address] MCV (RBC) [Entitic vol] 89.2 fL Normal 80.0-100.0 [facility] Comment on above: Order Comment: Speci men Type: BLOOD SPECIMEN Ordering Facility: [facility] Address: [address] [place] [address] Performed By: #### 5 7021-8 #### [facility] CLIA [id number] [address] Monocytes (Bld) [#/Vol] 0.51 10*3/uL Normal <0.87 [facility] Comment on above: Order Comment: Speci men Type: BLOOD SPECIMEN Ordering Facility: [facility] Address: [address] [place] [address] Performed By: #### 5 7021-8 #### [facility] CLIA [id number] [address] Monocytes/100 WBC (Bld) 6.0 % Normal [facility] Comment on above: Order Comment: Speci men Type: BLOOD SPECIMEN Ordering Facility: [facility] Address: [facility] [place] [address] Performed By: #### 5 7021-8 #### [facility] CLIA [id number] [address] [place] [address] [place] Neutrophils (Bld) [#/Vol] 6.15 10*3/uL Normal 1.45-7.50 [facility] Comment on above: Order Comment: Speci men Type: BLOOD SPECIMEN Ordering Facility: [facility] Address: [address] [place] [address] Performed By: #### 5 7021-8 #### [facility] CLIA [id number] [address] Neutrophils/100 WBC (Bld) 72.9 % Normal [facility] Comment on above: Order Comment: Speci men Type: BLOOD SPECIMEN Ordering Facility: [facility] Address: [address] [place] [address] Performed By: #### 5 7021-8 #### [facility] CLIA [id number] [address] [place] [address] [place] [facility] [place] Nucleated RBC (Bld) [#/Vol] 10*3/uL Normal <0.01 [facility] Comment on above: Order Comment: Speci men Type: BLOOD SPECIMEN Ordering Facility: [facility] Address: [address] [place] [address] Performed By: #### 5 7021-8 #### [facility] CLIA [id number] [address] [place] [address] [place] [facility] [place] Nucleated RBC/100 WBC (Bld) [Ratio] 0.0 /100 WBC Normal [facility] Comment on above: Order Comment: Speci men Type: BLOOD SPECIMEN Ordering Facility: [facility] Address: [address] [place] [address] Performed By: #### 5 7021-8 #### [facility] CLIA [id number] [address] [place] [address] [place] Platelet mean volume (Bld) [Entitic vol] 11.5 fL Normal 9.0-12.7 [facility] Comment on above: Order Comment: Speci men Type: BLOOD SPECIMEN Ordering Facility: [facility] Address: [facility] [place] [address] Performed By: #### 5 7021-8 #### [facility] CLIA [id number] [address] [place] [address] [place] Platelets (Bld) [#/Vol] 171 10*3/uL Normal 150-400 [facility] Comment on above: Order Comment: Speci men Type: BLOOD SPECIMEN Ordering Facility: [facility] Address: [address] [place] [address] Performed By: #### 5 7021-8 #### [facility] CLIA [id number] [address] [place] [address] [place] RBC (Bld) [#/Vol] 3.62 10*6/uL Low 3.90-5.20 [facility] Comment on above: Order Comment: Speci men Type: BLOOD SPECIMEN Ordering Facility: [facility] Address: [address] [place] [address] Performed By: #### 5 7021-8 #### [facility] CLIA [id number] [address] [place] [address] [place] WBC (Bld) [#/Vol] 8.44 10*3/uL Normal 3.70-11.00 [facility] Comment on above: Order Comment: Speci men Type: BLOOD SPECIMEN Ordering Facility: [facility] Address: [address] [place] [address] Performed By: #### 5 7021-8 #### [facility] CLIA [id number] [address] [place] [address] [place] CNCOon 05-18-2024 CNCO Letter Text Normal [facility] Comprehensive metabolic 2000 panelon 05-18-2024 Albumin [Mass/Vol] 3.4 g/dL Low 3.9-4.9 [facility] Comment on above: Order Comment: Speci men Type: BLOOD SPECIMEN Ordering Facility: [facility] Address: [address] [place] [address] Performed By: #### 2 4323-8, 42036-1, 0-3 #### [facility] CLIA [id number] [address] [place] [address] [place] ALP [Catalytic activity/Vol] 101 U/L Normal 34-123 [facility] Comment on above: Order Comment: Speci men Type: BLOOD SPECIMEN Ordering Facility: [facility] Address: [address] [place] [address] Performed By: #### 2 4323-8, 69705-5, 0-3 #### [facility] CLIA [id number] [address] [place] [address] [place] ALT [Catalytic activity/Vol] 5 U/L Low 7-38 [facility] Comment on above: Order Comment: Speci men Type: BLOOD SPECIMEN Ordering Facility: [facility] Address: [address] [place] [address] Performed By: #### 2 4323-8, , 0-3 #### [facility] CLIA [id number] [address] [place] [address] [place] Anion gap [Moles/Vol] 12 mmol/L Normal 8-15 [facility] Comment on above: Order Comment: Speci men Type: BLOOD SPECIMEN Ordering Facility: [facility] Address: [address] [place] [address] Performed By: #### 2 4323-8, 98856-2, 0-3 #### [facility] CLIA [id number] [address] [place] AST [Catalytic activity/Vol] 15 U/L Normal 13-35 [facility] Comment on above: Order Comment: Speci men Type: BLOOD SPECIMEN Ordering Facility: [facility] Address: [address] [place] [address] Performed By: #### 2 4323-8, 51878-7, 0-3 #### [facility] CLIA [id number] [address] [place] [address] [place] Bilirubin [Mass/Vol] 0.2 mg/dL Normal 0.2-1.3 [facility] Comment on above: Order Comment: Speci men Type: BLOOD SPECIMEN Ordering Facility: [facility] Address: [address] [place] [id number] Performed By: #### 2 4323-8, 40659-8, 3039-3 #### [facility] CLIA [id number] [address] [place] [address] [place] Calcium [Mass/Vol] 8.6 mg/dL Normal 8.5-10.2 [facility] Comment on above: Order Comment: Speci men Type: BLOOD SPECIMEN Ordering Facility: [facility] Address: [address] [place] [address] Performed By: #### 2 4323-8, , 3039-3 #### [facility] CLIA [id number] [address] [place] [address] [place] Chloride [Moles/Vol] 107 mmol/L Normal 98-107 [facility] Comment on above: Order Comment: Speci men Type: BLOOD SPECIMEN Ordering Facility: [facility] Address: [address] [place] [address] Performed By: #### 2 4323-8, , 3 #### [facility] CLIA [id number] [address] [place] [address] [place] CO2 [Moles/Vol] 19 mmol/L Low 22-30 [facility] Comment on above: Order Comment: Speci men Type: BLOOD SPECIMEN Ordering Facility: [facility] Address: [address] [place] [id number] Performed By: #### 2 4323-8, , 3039-3 #### [facility] CLIA [id number] [address] [place] [address] [place] Creatinine [Mass/Vol] 0.59 mg/dL Normal 0.58-0.96 [facility] Comment on above: Order Comment: Speci men Type: BLOOD SPECIMEN Ordering Facility: [facility] Address: [address] [place] [address] Performed By: #### 2 4323-8, , 3039-3 #### [facility] CLIA [id number] [address] [place] [address] [place] Creatinine and Glomerular filtration rate.predicted panel (S/P/Bld) 124 mL/min/1.73m??? Normal >=60 [facility] Comment on above: Order Comment: Teodora sanderson Type: BLOOD SPECIMEN Ordering Facility: [facility] Address: [address] [place] [address] Result Comment: Tanya mated Glomerular Filtration Rate (eGFR) is calculated using the 2020 CKD-EPI creatinine equation. This equation utilizes serum creatinine, sex, and age as parameters. The creatinine assay has traceable calibration to isotope dilution-mass spectrometry. Refer to KDIGO guidelines for clinical interpretation. In patients with unstable renal function, e.g. those with acute kidney injury, the eGFR may not accurately reflect actual GFR. Performed By: #### 2 4323-8, 71648-5, 0-3 #### [facility] CLIA [id number] [address] [place] [address] [place] Glucose [Mass/Vol] 108 mg/dL High 74-99 [facility] Comment on above: Order Comment: Teodora sanderson Type: BLOOD SPECIMEN Ordering Facility: [facility] Address: [address] [place] [address] Result Comment: The [place] Diabetes Association (ADA) provides guidance for cutoff values for fasting glucose and random glucose. The ADA defines fasting as no caloric intake for at least 8 hours. Fasting plasma glucose results between 100 to 125 mg/dL indicate increased risk for diabetes (prediabetes). Fasting plasma glucose results greater than or equal to 126 mg/dL meet the criteria for diagnosis of diabetes. In the absence of unequivocal hyperglycemia, results should be confirmed by repeat testing. In a patient with classic symptoms of hyperglycemia or hyperglycemic crisis, random plasma glucose results greater than or equal to 200 mg/dL meet the criteria for diagnosis of diabetes. Reference: Standards of Medical Care in Diabetes 2016, [place] Diabetes Association. Diabetes Care. 2016.39(Suppl 1). Performed By: #### 2 4323-8, 02697-2, 0-3 #### [facility] CLIA [id number] [address] [place] [id number] [place] Potassium [Moles/Vol] 3.9 mmol/L Normal 3.7-5.1 [facility] Comment on above: Order Comment: Speci men Type: BLOOD SPECIMEN Ordering Facility: [facility] Address: [address] [place] [address] Performed By: #### 2 4323-8, 80841-4, 0-3 #### [facility] CLIA [id number] [address] [place] [address] [place] Protein [Mass/Vol] 6.1 g/dL Low 6.3-8.0 [facility] Comment on above: Order Comment: Speci men Type: BLOOD SPECIMEN Ordering Facility: [facility] Address: [address] [place] [address] Performed By: #### 2 4323-8, 95042-0, 0-3 #### [facility] CLIA [id number] [address] [place] Sodium [Moles/Vol] 138 mmol/L Normal 136-144 [facility] Comment on above: Order Comment: Speci men Type: BLOOD SPECIMEN Ordering Facility: [facility] Address: [address] [place] [address] Performed By: #### 2 4323-8, 07521-9, 0-3 #### [facility] CLIA [id number] [address] [place] Urea nitrogen [Mass/Vol] 5 mg/dL Low 7-21 [facility] Comment on above: Order Comment: Speci men Type: BLOOD SPECIMEN Ordering Facility: [facility] Address: [address] [place] [address] Performed By: #### 2 4323-8, 62048-8, 0-3 #### [facility] CLIA [id number] [address] [place] [address] [place] ED NOTEon 05-18-2024 ED NOTE HNO ID: [id number] Author: JULEE PALM APRN.UNIVERSITY DEMONSTRATOR Service: ? Author Type: Clinical Nurse Specialist Type: ED Notes Filed: 05/18/2024 14:13 Note Text: SBAR report to transport team at bedside. All belongings sent with pt. No further questions for this RN Normal [facility] ED NOTE HNO ID: [id number] Author: JULEE PALM APRN.UNIVERSITY DEMONSTRATOR Service: ? Author Type: Clinical Nurse Specialist Type: ED Notes Filed: 05/18/2024 13:45 Note Text: [facility] No further questions for this RN [facility] ED PROV NOTEon 05-18-2024 ED PROV NOTE HNO ID: [id number] Author: RAEGAN MORA DO Service: Emergency Medicine Author Type: Physician Type: ED Provider Notes Filed: 05/18/2024 20:39 Note Text: ED Provider Note Patient Name: Richard Smith : 1995 SERVICE DATE: 05/18/24 History Patient presents with: Flank Pain: R sided flank pain and nausea started yesterday, pt is almost 28 weeks , pt is , pt is still feeling baby move and no vaginal bleeding present HPI 29-year-old female currently 28 weeks , states she is G2, P1 presents today for multiple complaints. Patient states that she is having some nausea, some right sided abdominal pain, low back pain. Patient states it began yesterday. Denies any vaginal bleeding, dysuria, hematuria. States that she did notice some fluid between her legs but is unsure if it was vaginal fluid. States that this happened this morning. Denies any vomiting, diarrhea, melena, hematochezia. Denies any chest pain, shortness of breath, focal weakness or numbness, vision changes. Patient does endorse headache, states that they are intermittent. States that she does not have a headache currently. Denies any cough/congestion/rhinor jessi. Patient denies any falls, trauma to her back or abdomen. States that she feels safe at home. PAST MEDICAL HISTORY Diagnosis Date Abdominal cramping affecting (HCC) 05/18/2024 Abnormal Pap smear of cervix anxiety Calculus of gallbladder without biliary obstruction 08/10/2019 Cervical intraepithelial neoplasia grade 1 2016 COVID-19 virus infection 01/30/2020 Positive test 01/17/20 (symptoms started 01/15) Overall symptoms gradually improving and almost resolved today. Completed course of decadron for respiratory symptoms. Reassured patient that feels that her course of illness is near complete and happy that her symptoms seem to be resolved. No further action at this time. Dyslipidemia (high LDL; low HDL) 06/05/2022 Elevated glucose 09/01/2019 Patient had elevated glucose on last BMP. BMI elevated, No FM history of diabetes. 08/2019: Hba1c 5.3 Elevated liver enzymes 2019 Noted hepatic steatosis on RUQ US in 2019 JORJE (generalized anxiety disorder) 11/25/2019 Likes current dose of zoloft. Continue. 11/25/2019 JORJE 7:11 PHQ 9: 4 Counseling referral placed. Interested in medications, will plan to start zoloft, titrate from 25 mg to 50 mg in next week. Will message in 4 weeks on symptoms. HISTORICAL prozac in past with minimal relief. Gastroesophageal reflux disease 11/03/2019 Symptoms of burning after eating, didn't seem to improve with Pepcid alone -Plan: begin PPI trial x 4 weeks, recommended she return in 2-4 weeks or sooner if symptoms are not improving Hypertriglyceridemia 06/05/2022 Inverted nipple Migraine variant 01/07/2013 Seems to be more tension headache then migraine. ibuprofen prn has provided relief Historical: Patient tried amitriptyline which helped with headaches but made too fatigued Pure hypercholesterolemia 06/05/2022 Seasonal allergies flonase. Shingles outbreak PAST SURGICAL HISTORY Procedure Laterality Date CHOLECYSTECTOMY HX 08/2019 DANDC, DIAG AND/OR THERAPEUTIC 2019 Missed ab FAMILY HISTORY Problem Relation Age of Onset Anxiety disorder Mother No Known Problems Father Anxiety disorder Sister No Known Problems Sister No Known Problems Brother No Known Problems Brother Hypertension Maternal Grandmother Lipids Maternal Grandmother COPD Maternal Grandfather other (smoker) Maternal Grandfather Lung Cancer Paternal Grandmother Cancer Paternal Grandfather bone? Social History Tobacco Use Smoking status: Never Smokeless tobacco: Never Vaping Use Vaping status: Never Used Substance and Sexual Activity Alcohol use: Not Currently Comment: social Drug use: No Sexual activity: Yes Partners: Male Comment: Male present ALLERGIES Allergen Reactions Imitrex [Sumatripta* Other: See Comments Patient stated her jaw locked up and hurt really bad Review of Systems Constitutional: Negative for fatigue and fever. HENT: Negative for congestion. Respiratory: Negative for cough and shortness of breath. Cardiovascular: Negative for chest pain and leg swelling. Gastrointestinal: Negative for abdominal pain, diarrhea, nausea and vomiting. Genitourinary: Negative for dysuria. Physical Exam Vitals [05/18/24 1100] BP Pulse Temp Temp src Resp SpO2 Weight Height 124/73 90 37.2 ?C (98.9 ?F) Oral 18 97 % 99.8 kg (220 lb) -- Physical Exam Constitutional: General: She is not in acute distress. Appearance: She is not ill-appearing, toxic-appearing or diaphoretic. HENT: Head: Normocephalic. Nose: Nose normal. Mouth/Throat: Mouth: Mucous membranes are moist. Eyes: Pupils: Pupils are equal, round, and reactive to light. Cardiovascular: Rate and Rhythm: Normal rate and regular rhythm. Pulses: Normal pulses. Pulmonary: (more content not included)... Normal [facility] HISTORY PHYSICALon HISTORY PHYSICAL HNO ID: [id number] Author: OMAR ARTHUR MD Service: Obstetrics Author Type: Resident Type: H&P Filed: 05/18/2024 19:54 Note Text: Attestation signed by Omar Arthur MD at 05/18/2024 7:54 PM Attending Note I evaluated the patient and personally participated in the barber components. I agree with the resident's findings and plan as documented and have discussed the case and management of the patient's care with the resident. Plan of care discussed with: Provider, RN, Patient. No signs of UTI, advise belt AND back excercises Signature: Omar Arthur MD Date: May 18, 2024 Time: 7:54 PM OBSTETRICS TRIAGE PROGRESS NOTE SERVICE DATE: May 18, 2024 SERVICE TIME: 3:50 PM Subjective Patient's stated reason for arrival: This morning I had pressure and tightening and then my right side has been hurting. Sissy had this fluid discharge for 2 days. its clear. CHIEF COMPLAINT: Headache, abdominal cramping, and LOF HISTORY OF THE PRESENT ILLNESS: The patient is a 29 year old female, , who is at 27w6d with an MARYJANE of 08/11/2024, by Ultrasound dating method. Patient is here with abdominal pressure, leakage of fluid and headache. She was seen in the ED with abdominal pressure sensation that is present when up walking. Denies currently at rest. Describes as pelvic pressure to intermittent cramping sensation. Has not had since being in triage. She also had a headache in the setting of history of preeclampsia in a previous . Denies a headache now. Denies vision changes, chest pain, SOB, or RUQ pain. She has also been having leakage of fluid for the past two days. She notes that she has scant vaginal discharge, no big gush of fluid. Good movement. Denies vaginal bleeding., Denies contractions. REVIEW OF SYSTEMS: The remainder of the review of systems is negative. Objective LAST VITALS: Pulse BP Resp O2 Sat Temp Pain 83 113/75 16 98 % 36.8 ?C (98.3 ?F) 5 HT/WT/BMI: Height Weight BMI 163.8 cm (5' 4.5) SENSITIVE EXAMINATION CONSENT: Participation of a fellow, resident, medical student, or advanced practice provider student in performing the sensitive examination was discussed with the patient or authorized patient representative. The patient or authorized patient representative has agreed to proceed with the sensitive examination. PHYSICAL EXAM: General: WD, WN Heart: RR, S1, S2 Lungs: clear to auscultation Abdomen: soft, nontender, no masses Extremities: no edema Speculum: prominent white vaginal discharge, no active cervical discharge, visually closed, nitrazine negative, pooling negative, ferning negative MONITORING/ASSESSMENT: testing reassuring - see additional documentation Ultrasound: EDWARD 20.45 cm LABS Diagnostic tests reviewed for today's visit: Most recent labs and imaging results. 29 year old EGA:27w6d presenting for abdominal cramping, headache, and leakage of fluid. Assessment AND Plan History of pre-eclampsia - in prior - headache today resolved prior to presenting to triage - CBC/CMP wnl - blood pressure wnl - low concern for preeclampsia Vaginal discharge during in second trimester ([facility]) - vaginitis swabs collected - negative for pooling, nitrazine negative, and ferning negative with EDAWRD of 20.45 > low concern for rupture of membranes Abdominal cramping affecting ([facility]) - cervix visually closed - denies currently, low concern for labor - UA with positive bacteria, denies dysuria or frequency, urine culture collected Patient safe to discharge home with return precautions provided. SIGNATURE: Rock Swan MD PATIENT NAME: Richard Smith DATE: May 18, 2024 TIME: 3:50 PM Normal [facility] Lipase SerPl-cCncon 05-19-19 25 Lipase [Catalytic activity/Vol] 20 U/L Normal [facility] Comment on above: Order Comment: Speci men Type: BLOOD SPECIMEN Ordering Facility: [facility] Address: [address] [place] [address] Performed By: #### 2 4323-8, 38356-0, 3039-3 #### [facility] CLIA [id number] [address] [place] [address] [place] Magnesium SerPl-mCncon 05-18 Magnesium [Mass/Vol] 1.8 mg/dL Normal 1.7-2.3 [facility] Comment on above: Order Comment: Speci men Type: BLOOD SPECIMEN Ordering Facility: [facility] Address: [address] [place] [address] Performed By: #### 2 4323-8, 71600-6, 3039-3 #### [facility] CLIA [id number] [address] [place] [address] [place] Urinalysis complete panel (U )on 05-18-2024 Bacteria LM.HPF (Urine sed) [#/Area] Moderate Abnormal None Seen [facility] Comment on above: Order Comment: Speci men Type: URINE SPECIMEN Ordering Facility: [facility] Address: [address] [place] [address] Performed By: #### 2 4356-8 #### [facility] CLIA [id number] [address] [place] [address] [place] Bilirubin Ql (U) Negative Normal Negative [facility] Comment on above: Order Comment: Speci men Type: URINE SPECIMEN Ordering Facility: [facility] Address: [address] [place] [address] Performed By: #### 2 4356-8 #### [facility] CLIA [id number] [address] [place] Clarity (Unsp spec) Clear Normal Clear [facility] Comment on above: Order Comment: Speci men Type: URINE SPECIMEN Ordering Facility: [facility] Address: [address] [place] [address] Performed By: #### 2 4356-8 #### [facility] CLIA [id number] [address] OF [facility] Color (U) Yellow Normal Yellow [facility] Comment on above: Order Comment: Speci men Type: URINE SPECIMEN Ordering Facility: [facility] Address: [address] [place] [address] Performed By: #### 2 4356-8 #### [facility] CLIA [id number] [address] Epithelial cells LM.HPF (Urine sed) [#/Area] Moderate Normal [facility] Comment on above: Order Comment: Speci men Type: URINE SPECIMEN Ordering Facility: [facility] Address: [address] [place] [address] Result Comment: Few Performed By: #### 2 4356-8 #### [facility] CLIA [id number] [address] [place] Glucose Test strip (U) [Mass/Vol] Negative Normal Negative [facility] Comment on above: Order Comment: Speci men Type: URINE SPECIMEN Ordering Facility: [facility] Address: [address] [place] [address] Performed By: #### 2 4356-8 #### [facility] CLIA [id number] [address] [place] Hemoglobin Ql (U) Negative Normal Negative [facility] Comment on above: Order Comment: Speci men Type: URINE SPECIMEN Ordering Facility: [facility] Address: [address] [place] [address] Performed By: #### 2 4356-8 #### [facility] CLIA [id number] [address] [place] [address] [place] [facility] [place] Ketones Ql (U) Trace Abnormal Negative [facility] Comment on above: Order Comment: Speci men Type: URINE SPECIMEN Ordering Facility: [facility] Address: [address] [place] [address] Performed By: #### 2 4356-8 #### [facility] CLIA [id number] [address] [place] Leukocyte esterase Test strip Ql (U) Negative Normal Negative [facility] Comment on above: Order Comment: Speci men Type: URINE SPECIMEN Ordering Facility: [facility] Address: [address] [place] [address] Performed By: #### 2 4356-8 #### [facility] CLIA [id number] [address] [place] Nitrite Ql (U) Negative Normal Negative [facility] Comment on above: Order Comment: Speci men Type: URINE SPECIMEN Ordering Facility: [facility] Address: [address] [place] [address] Performed By: #### 2 4356-8 #### [facility] CLIA [id number] [address] pH (U) 6.0 [pH] Normal 5.0-8.0 [facility] Comment on above: Order Comment: Speci men Type: URINE SPECIMEN Ordering Facility: [facility] Address: [address] [place] [address] Performed By: #### 2 4356-8 #### [facility] CLIA [id number] [address] [place] [address] [place] Protein (U) [Mass/Vol] Negative Normal Negative [facility] Comment on above: Order Comment: Speci men Type: URINE SPECIMEN Ordering Facility: [facility] Address: [address] [place] [address] Performed By: #### 2 4356-8 #### [facility] CLIA [id number] [address] [place] RBC LM.HPF (Urine sed) [#/Area] 0-3 /HPF Normal 0-3 /HPF [facility] Comment on above: Order Comment: Speci men Type: URINE SPECIMEN Ordering Facility: [facility] Address: [address] [place] [address] Performed By: #### 2 4356-8 #### [facility] CLIA [id number] [address] Specific gravity (U) [Rel density] 1.025 Normal 1.005-1.030 [facility] Comment on above: Order Comment: Speci men Type: URINE SPECIMEN Ordering Facility: [facility] Address: [address] [place] [address] Performed By: #### 2 4356-8 #### [facility] CLIA [id number] [address] Urobilinogen Ql (U) 0.2 EU/dL Normal 0.2-1.0 EU/dL [facility] Comment on above: Order Comment: Speci men Type: URINE SPECIMEN Ordering Facility: [facility] Address: [address] [place] [address] Performed By: #### 2 4356-8 #### [facility] CLIA [id number] [address] WBC LM.HPF (Urine sed) [#/Area] 0-5 /HPF Normal 0-5 /HPF [facility] Comment on above: Order Comment: Speci men Type: URINE SPECIMEN Ordering Facility: [facility] Address: [address] [place] [address] Performed By: #### 2 4356-8 #### [facility] CLIA [id number] [address] FETALon 04-16-2024 + --- -----+-+ Pediatric Cardiology Echocardiogram Report + -----+-+ NAME: MS. RICHARD SMITH : 1995 PT ID#: [id number] Age: 28 years Sex: F STUDY DATE: 04/16/2024 1:36:17 PM MARYJANE: 08/11/2024 GA: 23w2d Image Quality: The images were of adequate diagnostic quality. Referring Physician: Susana Castillo Diagnosing Physician: Reagan Bermeo MD Protective Services Social Worker: Elizabeth Kirkland 2nd Protective Services Social Worker: Diagnosis: O35.8XX0 cardiac abnormality, antepartum, single fetus or unspecified Procedure Code: 66788, 85626, 53502 Echo, Complete (w/Doppler and color) Exam Location: [facility] (). Indications: Evaluate cardiac function & anatomy Color Doppler was utilized to interrogate the cardiac valves assessed. Spectral Doppler was utilized to determine the flow velocities and pressure gradients reported in this exam. History: SUA Parameters: Single/Multi: Estrada Position: position is breech Biometry: Biometry Table: Biparietal Diameter 5.55 cm Abdominal Circumference 20.99 cm Femur Length 4.02 cm Estimated Weight 675.14 g Vessels: Two-vessel umbilical cord is present. Umbilical artery flow Doppler is normal. Umbilical venous flow Doppler is normal. Ductus Venosus Doppler is normal. UA S/D 2.3 UA PI 0.82 MCA PI 0.83 Rate and Rhythm: heart rate is normal. heart rhythm demonstrates infrequent premature atrial contractions. HR 148 bpm Mechanical GA 120 ms Segmental Anatomy, Cardiac Position and Situs: The segmental anatomy and situs are normal. Normal visceral situs. The heart position is within the left hemithorax (levo position). Levocardia (apex to the left). The aorta is to the right of the pulmonary artery. Segmental anatomy is S,D,S. Systemic Veins: Right superior vena cava is right sided and drains normally to the right atrium. The inferior vena cava is right sided and inserts normally into the right atrium. Pulmonary Veins: At least one pulmonary vein on each side drains to the left atrium. Atria: The right atrium is normal in size. The left atrium is normal in size. Widely patent foramen ovale with normal intrauterine right to left flow. Tricuspid Valve: The tricuspid valve is normal. Tricuspid valve inflow Doppler is biphasic. There is no tricuspid valve regurgitation. Right Ventricle: There is qualitatively normal right ventricular size and wall thickness with normal systolic function. Mitral Valve: The mitral valve is normal. There is no mitral valve regurgitation. Mitral valve inflow Doppler is biphasic. Left Ventricle: Normal left ventricular size and wall thickness with normal systolic function. VSD: There is no obvious ventricular septal defect. Conotruncal Anatomy: There is normal conotruncal anatomy. RVOT: There is no right ventricular outflow tract obstruction. Pulmonary Valve: The pulmonary valve is normal. There is no pulmonary valve stenosis. There is no pulmonary valve regurgitation. Pulmonary Arteries: The main and branch pulmonary arteries appear normal. The main pulmonary artery is normal. The left pulmonary artery is normal. The right pulmonary artery is normal. LVOT: There is no left ventricular outflow tract obstruction. Aortic Valve: The aortic valve is normal with no stenosis and no regurgitation. Aorta: There is no transverse arch hypoplasia. The ascending aorta is normal in size. Aortic arch is widely patent. There is a left aortic arch. Ductus Arteriosus: Ductal arch is widely patent with normal intrauterine right to left flow. Pericardium: There is no pericardial effusion. Prior Exam's: No prior studies or reports for comparison. Measurements: 2D: Z-Score Aortic annulus 3.4 mm -1.09 MV annulus 6.5 mm 0.68 Pulmonary annulus 4.5 mm -0.56 TV annulus 7.2 mm 1.22 Summary 1. Segmental anatomy and situs are normal. 2. No structural abnormalities seen. 3. No valvar abnormalities seen. 4. Normal left ventricular size and wall thickness with normal systolic function. 5. Qualitatively normal right ventricular size and wall thickness with normal systolic function. 6. Aortic arch is widely patent. 7. Ductal arch is widely patent with normal intrauterine right to left flow. 8. heart rate and overall rhythm are normal. infrequent premature atrial contractions are seen 9. Two-vessel umbilical cord is present. 10. Umbilical artery flow Doppler is normal. 11. Umbilical venous flow Doppler is normal. 12. No pericardial effusion. 13. No prior studies or reports. The results and limitations of the echocardiogram and echocardiography in general, including the inability to exclude ASDs, some VSDs, minor valvar abnormalities, partial anomalous pulmonary venous return, persistent patent ductus (more content not included)... Normal [facility] 03-31-2024 [facility] Telephone (OBGYWM) RICHARD SMITH ([id number]) 1995 F Date Time Provider Department 03/31/24 SUSANA CASTILLO OBGYWM During your visit today, we recorded the following information about you: Julee Haskins 03/31/2024 9:47 AM Signed Please submit OB US orders. Juana Traylor RN 03/28/24 5:10 PM Note Susana Castillo MD to [facility] Ob-Dye Tub Tender Pool 03/28/24 1:13 PM Result Note Add to record Had visit with SHANE today and looks like she discussed SUA with pt Can offer echo Will need growth US q 4 weeks starting at 28 weeks Elizabeth Clarke RN 03/31/2024 9:56 AM Signed Orders pended. HAYDEN Collins Sara, MD 03/31/2024 10:29 AM Signed filed Elizabeth Clarke RN 03/31/2024 10:32 AM Signed Please contact patient to schedule every 4 week growth ultrasounds starting at 28 weeks. Thank you. Elizabeth Clarke RN Allergies As of Date: 03/31/2024 Noted Allergy Reaction IMITREX (SUMATRIPTAN) 11/16/2010 14 - Other: See Comments Comments: Patient stated her jaw locked up and hurt really bad Date Reviewed: 03/28/2024 Reviewed by: Taryn Arguelles MA - Fully Assessed Reason for Visit: Orders [681] Cmt: OB US - Growth Primary Visit Diagnosis:Single umbilical artery affecting management of mother, antepartum, single gestation [O09.899] Other Visit Diagnosis:Supervision of high risk in second trimester [O09.92] Order(s):OBSTETRIC ULTRASOUND [facility] [[id number]] Order #: [id number]: 4 FUTURE Prescriptions as of 05/30/2024 - amoxicillin (AMOXIL) 875 mg tablet Take 1 tablet by mouth two times a day for 7 days. - fluticasone (FLONASE) 50 mcg/actuation nasal spray Use 2 sprays in each nostril once daily. Rinse mouth after use. - levothyroxine (SYNTHROID) 100 mcg tablet Take 1 tablet by mouth daily before breakfast. - vit no.124/iron/folic ( VITAMIN ORAL) Take by mouth. - cetirizine (ZYRTEC) 10 mg tablet Take 1 tablet by mouth once daily. - fluticasone (FLONASE) 50 mcg/actuation nasal spray Use 2 Sprays in each nostril once daily. Rinse mouth after use. Problem List As Of Date 03/31/2024 Noted Resolved Migraine variant [G43.809] 01/07/2013 12/07/2023 Seasonal allergies [J30.2] 12/07/2023 Papanicolaou smear of cervix with low grade squ*02/12/2015 Calculus of gallbladder without biliary obstruc*08/10/2019 08/14/2019 Cholelithiasis [K80.20] 08/13/2019 08/14/2019 Biliary colic [K80.50] 08/13/2019 08/14/2019 History of pre-eclampsia [Z87.59] 05/16/2017 Elevated glucose [R73.09] 09/01/2019 11/25/2019 Irregular periods/menstrual cycles [N92.6] 09/01/2019 11/23/2023 Abdominal wall pain [R10.9] 11/03/2019 06/16/2020 Gastroesophageal reflux disease [K21.9] 11/03/2019 12/07/2023 JORJE (generalized anxiety disorder) [F41.1] 11/25/2019 12/07/2023 COVID-19 virus infection [U07.1] 01/30/2020 12/07/2023 RUQ pain [R10.11] 06/16/2020 11/23/2023 Diarrhea [R19.7] 06/16/2020 11/23/2023 Elevated liver enzymes [R74.8] 06/16/2020 12/07/2023 Screening for ischemic heart disease [Z13.6] 06/05/2022 11/23/2023 Hypertriglyceridemia [E78.1] 06/05/2022 12/07/2023 Dyslipidemia (high LDL; low HDL) [E78.5] 06/05/2022 12/07/2023 Pure hypercholesterolemia [E78.00] 06/05/2022 12/07/2023 Family history of congenital anomaly [Z82.79] 12/07/2023 History of anxiety [Z86.59] 12/07/2023 Obesity affecting in first trimester *12/07/2023 Encounter for supervision of high risk pregnanc*12/07/2023 Inverted nipple [N64.59] 12/07/2023 History of miscarriage [Z87.59] 12/07/2023 12/18/2023 PCOS (polycystic ovarian syndrome) [E28.2] 12/07/2023 with uncertain dates in first trimest*12/07/2023 Rubella non-immune status, antepartum [O09.899,*12/10/2023 Elevated TSH [R79.89] 12/10/2023 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 Jenise Cazares RN Allergies As of Date: 03/31/2024 Noted Allergy Reaction IMITREX (SUMATRIPTAN) 11/16/2010 14 - Other: See Comments Comments: Patient stated her jaw locked up and hurt really bad Date Reviewed: 03/28/2024 Reviewed by: Taryn Arguelles MA - Fully Assessed Reason for Visit: Assembler Wet Wash - Other [3602] Cmt: MOIRA Prescriptions as of 03/31/2024 - levothyroxine (SYNTHROID) 100 mcg tablet Take 1 tablet by mouth daily before breakfast. - aspirin, enteric coated (ECOTRIN LOW STRENGTH) 81 mg EC tablet Take 1 tablet by mouth once daily. - vit no.124/iron/folic ( VITAMIN ORAL) Take by mouth. - cetirizine (ZYRTEC) 10 mg tablet Take 1 tablet by mouth once daily. - fluticasone (FLONASE) 50 mcg/actuation nasal spray Use 2 Sprays in each nostril once daily. Rinse mouth after use. Problem List As Of Date 03/31/2024 Noted Resolved Migraine variant [G43.809] 01/07/2013 12/07/2023 Seasonal allergies [J30.2] 12/07/2023 Papanicolaou smear of cervix with low grade squ*02/12/2015 Calculus of gallbladder without biliary obstruc*08/10/2019 08/14/2019 Cholelithiasis [K80.20] 08/13/2019 08/14/2019 Biliary colic [K80.50] 08/13/2019 08/14/2019 History of pre-eclampsia [Z87.59] 05/16/2017 Elevated glucose [R73.09] 09/01/2019 11/25/2019 Irregular periods/menstrual cycles [N92.6] 09/01/2019 11/23/2023 Abdominal wall pain [R10.9] 11/03/2019 06/16/2020 Gastroesophageal reflux disease [K21.9] 11/03/2019 12/07/2023 JORJE (generalized anxiety disorder) [F41.1] 11/25/2019 12/07/2023 COVID-19 virus infection [U07.1] 01/30/2020 12/07/2023 RUQ pain [R10.11] 06/16/2020 11/23/2023 Diarrhea [R19.7] 06/16/2020 11/23/2023 Elevated liver enzymes [R74.8] 06/16/2020 12/07/2023 Screening for ischemic heart disease [Z13.6] 06/05/2022 11/23/2023 Hypertriglyceridemia [E78.1] 06/05/2022 12/07/2023 Dyslipidemia (high LDL; low HDL) [E78.5] 06/05/2022 12/07/2023 Pure hypercholesterolemia [E78.00] 06/05/2022 12/07/2023 Family history of congenital anomaly [Z82.79] 12/07/2023 History of anxiety [Z86.59] 12/07/2023 Obesity affecting in first trimester *12/07/2023 Encounter for supervision of high risk pregnanc*12/07/2023 Inverted nipple [N64.59] 12/07/2023 History of miscarriage [Z87.59] 12/07/2023 12/18/2023 PCOS (polycystic ovarian syndrome) [E28.2] 12/07/2023 with uncertain dates in first trimest*12/07/2023 Rubella non-immune status, antepartum [O09.899,*12/10/2023 Elevated TSH [R79.89] 12/10/2023 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 CNP My final recommendations will be communicated back to the requesting provider by way of shared Medical record or a letter via [place] mail Subjective: Richard Smith is a 28 year old female here to establish care for hypothyroidism. History in brief, Thyroid labs were checked during , and she was started on 88 mcg of levothyroxine based on lab results in first trimester in 12/2023 This is her second , and is at 20 weeks of gestation Labs were normal during her first Current treatment: Levothyroxine 88 mcg daily since 12/2023 She takes on empty stomach, waiting 30 mins before eating or drinking anything Takes at dinner time No symptoms of hypo or hyperthyroidism FH: no thyroid issues REVIEW OF SYSTEMS: GENERAL:No weight loss, malaise or fevers HEENT:Negative for frequent or significant headaches, No changes in hearing or vision, no nose bleeds or other nasal problems NECK:Negative for lumps, goiter, pain and significant neck swelling RESPIRATORY: Negative for cough, hemoptysis, wheezing or shortness of breath CARDIOVASCULAR: Negative for chest pain, leg swelling or palpitations GASTROINTESTINAL: No nausea, vomiting, or persistent diarrhea GENITOURINARY: no dysuria, Polyuria, no changes in urinary frequency MUSCULOSKELETAL:no muscle aches, arthralgia NEUROLOGIC: no numbness, tingling, no Paresthesias, no headaches SKIN:Negative for lesions, rash, and itching PSYCHIATRIC: Negative for sleep disturbance, mood disorder and recent psychosocial stressors. HEMATOLOGIC/LYMPHATIC/I MMUNOLOGIC:Negative for prolonged bleeding, bruising easily ENDOCRINE: Negative for cold or heat intolerance or goiter ALLERGIES: ALLERGIES Allergen Reactions Imitrex [Sumatripta* Other: See Comments Patient stated her jaw locked up and hurt really bad MEDICATIONS: Current Outpatient Medications on File Prior to Visit Medication Sig levothyroxine (SYNTHROID) 88 mcg tablet Take 1 tablet by mouth daily before breakfast. aspirin, enteric coated (ECOTRIN LOW STRENGTH) 81 mg EC tablet Take 1 tablet by mouth once daily. vit no.124/iron/folic ( VITAMIN ORAL) Take by mouth. cetirizine (ZYRTEC) 10 mg tablet Take 1 tablet by mouth once daily. fluticasone (FLONASE) 50 mcg/actuation nasal spray Use 2 Sprays in each nostril once daily. Rinse mouth after use. No current facility-administered medications on file prior to visit. PAST MEDICAL HISTORY: PAST MEDICAL HISTORY Diagnosis Date Abnormal Pap smear of cervix anxiety Calculus of gallbladder without biliary obstruction 08/10/2019 Cervical intraepithelial neoplasia grade 1 2016 COVID-19 virus infection 01/30/2020 Positive test 01/17/20 (symptoms started 01/15) Overall symptoms gradually improving and almost resolved today. Completed course of decadron for respiratory symptoms. Reassured patient that feels that her course of illness is near complete and happy that her symptoms seem to be resolved. No further action at this time. Dyslipidemia (high LDL; low HDL) 06/05/2022 Elevated glucose 09/01/2019 Patient had elevated glucose on last BMP. BMI elevated, No FM history of diabetes. 08/2019: Hba1c 5.3 Elevated liver enzymes 2019 Noted hepatic steatosis on RUQ US in 2019 JORJE (generalized anxiety disorder) 11/25/2019 Likes current dose of zoloft. Continue. 11/25/2019 JORJE 7:11 PHQ 9: 4 Counseling referral placed. Interested in medications, will plan to start zoloft, titrate from 25 mg to 50 mg in next week. Will message in 4 weeks on symptoms. HISTORICAL prozac in past with minimal relief. Gastroesophageal reflux disease 11/03/2019 Symptoms of burning after eating, didn't seem to improve with Pepcid alone -Plan: begin PPI trial x 4 weeks, recommended she return in 2-4 weeks or sooner if symptoms are not improving Hypertriglyceridemia 06/05/2022 Inverted nipple Migraine variant 01/07/2013 Seems to be more tension headache then migraine. ibuprofen prn has provided relief Historical: Patient tried amitriptyline which helped with headaches but made too fatigued Pure hypercholesterolemia 06/05/2022 Seasonal allergies flonase. Shingles outbreak PAST SURGICAL HISTORY: PAST SURGICAL HISTORY Procedure Laterality Date CHOLECYSTECTOMY HX 08/2019 DANDC, DIAG AND/OR THERAPEUTIC 2019 Missed ab FAMILY HISTORY: FAMILY HISTORY Problem Relation Age of Onset Anxiety disorder Mother No Kno (more content not included)... Normal [facility] CNPChiquita 03-28-2024 CNPN Telephone (OBGYWM) RICHARD SMITH ([id number]) 1995 F Date Time Provider Department 03/28/24 SUSANA CASTILLO OBGYW During your visit today, we recorded the following information about you: Juana Traylor RN 03/28/2024 5:11 PM Signed Susana Castillo MD to [facility] Ob-Dye Tub Tender Pool 03/28/24 1:13 PM Result Note Add to record Had visit with SHANE today and looks like she discussed SUA with pt Can offer echo Will need growth US q 4 weeks starting at 28 weeks Juana Traylor RN 03/28/2024 5:11 PM Signed Left message for patient to call office. HAYDEN Ruiz Trisha, RN 03/31/2024 8:45 AM Signed Patient notified. She does want to proceed with echo. Please file order. Will send patient Fungost message with phone number once order is filed. HAYDEN Ruiz Sara, MD 03/31/2024 9:14 AM Signed filed Elizabeth Clarke RN 03/31/2024 9:25 AM Signed Raynforestt message sent to patient. Elizabeth Clarke RN Allergies As of Date: 03/28/2024 Noted Allergy Reaction IMITREX (SUMATRIPTAN) 11/16/2010 14 - Other: See Comments Comments: Patient stated her jaw locked up and hurt really bad Date Reviewed: 03/28/2024 Reviewed by: Taryn Arguelles MA - Fully Assessed Reason for Visit: Results [95] Primary Visit Diagnosis:Single umbilical artery affecting management of mother, antepartum, single gestation [O09.899] Other Visit Diagnosis:21 weeks gestation of [Z3A.21] Order(s):ECHO [[id number]] Order #: [id number]: 1 FUTURE Prescriptions as of 04/23/2024 - levothyroxine (SYNTHROID) 100 mcg tablet Take 1 tablet by mouth daily before breakfast. - aspirin, enteric coated (ECOTRIN LOW STRENGTH) 81 mg EC tablet Take 1 tablet by mouth once daily. - vit no.124/iron/folic ( VITAMIN ORAL) Take by mouth. - cetirizine (ZYRTEC) 10 mg tablet Take 1 tablet by mouth once daily. - fluticasone (FLONASE) 50 mcg/actuation nasal spray Use 2 Sprays in each nostril once daily. Rinse mouth after use. Problem List As Of Date 03/28/2024 Noted Resolved Migraine variant [G43.809] 01/07/2013 12/07/2023 Seasonal allergies [J30.2] 12/07/2023 Papanicolaou smear of cervix with low grade squ*02/12/2015 Calculus of gallbladder without biliary obstruc*08/10/2019 08/14/2019 Cholelithiasis [K80.20] 08/13/2019 08/14/2019 Biliary colic [K80.50] 08/13/2019 08/14/2019 History of pre-eclampsia [Z87.59] 05/16/2017 Elevated glucose [R73.09] 09/01/2019 11/25/2019 Irregular periods/menstrual cycles [N92.6] 09/01/2019 11/23/2023 Abdominal wall pain [R10.9] 11/03/2019 06/16/2020 Gastroesophageal reflux disease [K21.9] 11/03/2019 12/07/2023 JORJE (generalized anxiety disorder) [F41.1] 11/25/2019 12/07/2023 COVID-19 virus infection [U07.1] 01/30/2020 12/07/2023 RUQ pain [R10.11] 06/16/2020 11/23/2023 Diarrhea [R19.7] 06/16/2020 11/23/2023 Elevated liver enzymes [R74.8] 06/16/2020 12/07/2023 Screening for ischemic heart disease [Z13.6] 06/05/2022 11/23/2023 Hypertriglyceridemia [E78.1] 06/05/2022 12/07/2023 Dyslipidemia (high LDL; low HDL) [E78.5] 06/05/2022 12/07/2023 Pure hypercholesterolemia [E78.00] 06/05/2022 12/07/2023 Family history of congenital anomaly [Z82.79] 12/07/2023 History of anxiety [Z86.59] 12/07/2023 Obesity affecting in first trimester *12/07/2023 Encounter for supervision of high risk pregnanc*12/07/2023 Inverted nipple [N64.59] 12/07/2023 History of miscarriage [Z87.59] 12/07/2023 12/18/2023 PCOS (polycystic ovarian syndrome) [E28.2] 12/07/2023 with uncertain dates in first trimest*12/07/2023 Rubella non-immune status, antepartum [O09.899,*12/10/2023 Elevated TSH [R79.89] 12/10/2023 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 - Single, live, intrauterine . - biometry is consistent with the established gestational age. - There is a single umbilical artery. No malformations were visualized on a complete detailed anatomic survey. - The amniotic fluid volume is normal amount. - The placenta is posterior, fundal. - The Transabdominal cervical length measures 39.7 mm with no evidence of funneling or other dynamic changes. - Not all structural malformations can be detected by ultrasound examination. Recommendations Screening echocardiogram can be offered Monthly growth ultrasound at 28 weeks Weekly NST at 36 weeks Maternal Assessment Height 163 cm Height (ft) 5 ft Height (in) 4 in Physical Exam Initial weight (lb) 196 lb Initial BMI 33.64 kg/m Maternal assessment other: 3 Para 1 Method Transabdominal ultrasound examination. View: Adequate visualization Estrada . Number of fetuses: 1 Dating LMP on: 10/16/2023 Cycle: irregular cycle GA by LMP 23 w + 3 d MARYJANE by LMP: 07/22/2024 GA by prior assessment 20 w + 4 d MARYJANE by prior assessment: 08/11/2024 Ultrasound examination on: 03/28/2024 GA by U/S based upon: AC, BPD, Femur, HC GA by U/S 20 w + 6 d MARYJANE by U/S: 08/09/2024 Assigned: based on stated MARYJANE, selected on 03/28/2024 Assigned GA 20 w + 4 d Assigned MARYJANE: 08/11/2024 General Evaluation Cardiac activity present. FHR 148 bpm. movements: present. Presentation: cephalic Placenta: Placental site: posterior, fundal Umbilical cord: Cord vessels: 2 vessel cord Amniotic fluid: Amount of AF: normal amount. MVP 6.9 cm Growth Overview Exam date GA BPD (mm) HC (mm) AC (mm) FL (mm) HL (mm) EFW (g) 02/28/2024 16w 3d 34.9 64% 129.8 46% 121.7 90% 22.1 63% 182 83% 03/28/2024 20w 4d 48.6 55% 183.8 55% 163.1 70% 33.5 61% 34.6 88% 387 64% Biometry Standard BPD 48.6 mm 20w 5d 55% Hadlock OFD 65.4 mm 20w 5d 80% Nicolaides HC 183.8 mm 20w 5d 55% Agustina Cerebellum tr 22.4 mm 20w 6d 80% Hill Nuchal fold 4.9 mm AC 163.1 mm 21w 3d 70% Hadlock Femur 33.5 mm 20w 5d 61% Agustina Humerus 34.6 mm 21w 6d 88% Agustina EFW 387 g 20w 6d 64% Hadlock EFW (lb) 0 lb EFW (oz) 14 oz EFW by: Hadlock (HC-AC-FL) Extended Validation Architect 5.9 mm CM 2.6 mm <1% Nicolaides Extremities / Bony Struc FL / HC 0.18 17% Hadlock Other Structures FHR 148 bpm Anatomy Cranium: normal Lateral ventricles: normal Choroid plexus: normal Midline falx: normal Cavum septi pellucidi: normal Cerebellum: normal Cisterna magna: normal Head / Neck Vermis: normal Neck: normal Nuchal fold: normal Lips: normal Profile: normal Nose: normal Face Maxilla: normal Mandible: normal Orbits: normal Lens: normal 4-chamber view: normal RVOT view: normal LVOT view: normal 3-vessel view: normal [id number] view: normal Heart / Thorax Situs: situs solitus (normal) Aortic arch view: normal SVC: normal IVC: normal Cardiac axis: normal Rt lung: normal Lt lung: normal Diaphragm: normal Cord insertion: normal Stomach: normal Kidneys: normal Bladder: normal Genitals: normal Abdomen Abdom. wall: normal Cervical spine: normal Thoracic spine: normal Lumbar spine: normal Sacral spine: normal Arms: normal Legs: normal Rt upper arm: normal Rt forearm: normal Rt hand: normal Rt fingers: normal Lt upper arm: normal Lt forearm: normal Lt hand: normal Lt fingers: normal Rt upper leg: normal Rt lower leg: normal Rt foot: normal Lt upper leg: normal Lt lower leg: normal Lt foot: normal sex: male Wants to know sex: yes Maternal Structures Uterus / Cervix Uterus: Visualized Cervix: Visualized Approach: Transabdominal Cervical length 39.7 mm Other: Patient declined transvaginal ultrasound for cervical length. Ovaries / Tubes / Adnexa Rt ovary: Visualized Lt ovary: Visualized Performed By: Elizabeth Gray RDMS, RVT Read By: Florina Lo M.D. MATERNAL MEDICINE [facility] Radiology Study observation (narrative) [facility] Examination level ultrasound on 02-28-2024 Indication Early anatomic survey Maternal obesity, BMI >30, single umbilical artery Impression REMOTE READ The patient is referred for an early anatomic survey because of identified risk factors. - Single, live, intrauterine . - biometry is consistent with the established gestational age. - There appears to be single umbilical artery. No malformations were visualized on an early anatomic assessment, although some anatomical structures were suboptimally seen as detailed below. - The amniotic fluid volume is normal amount. - The placenta is posterior. - Not all structural malformations can be detected by ultrasound examination. Recommendations Detailed anatomic survey around 20 weeks Maternal Assessment Height 163 cm Height (ft) 5 ft Height (in) 4 in Physical Exam Initial weight (lb) 196 lb Initial BMI 33.64 kg/m Maternal assessment other: 3 Para 1 Method Transabdominal ultrasound examination. View: Suboptimal view: limited by early gestational age Estrada . Number of fetuses: 1 Dating LMP on: 10/16/2023 Cycle: irregular cycle GA by LMP 19 w + 2 d MARYJANE by LMP: 07/22/2024 GA by prior assessment 16 w + 3 d MARYJANE by prior assessment: 08/11/2024 Ultrasound examination on: 02/28/2024 GA by U/S based upon: AC, BPD, Femur, HC GA by U/S 16 w + 6 d MARYJANE by U/S: 08/08/2024 Assigned: based on stated MARYJANE, selected on 02/28/2024 Assigned GA 16 w + 3 d Assigned MARYJANE: 08/11/2024 General Evaluation Cardiac activity present. FHR 157 bpm. movements: present. Presentation: cephalic Placenta: Placental site: posterior Umbilical cord: Cord vessels: 2 vessel cord Amniotic fluid: Amount of AF: normal amount Biometry Standard BPD 34.9 mm 16w 5d 64% Hadlock OFD 44.6 mm 15w 5d 30% Nicolaides HC 129.8 mm 16w 2d 46% Agustina AC 121.7 mm 17w 6d 90% Hadlock Femur 22.1 mm 16w 4d 63% Agustina EFW 182 g 17w 0d 83% Hadlock EFW (lb) 0 lb EFW (oz) 6 oz EFW by: Hadlock (HC-AC-FL) Extended Validation Architect 5.0 mm Extremities / Bony Struc FL / HC 0.17 67% Hadlock Other Structures FHR 157 bpm Anatomy Cranium: normal Lateral ventricles: normal Choroid plexus: normal Midline falx: normal Cerebellum: normal Cisterna magna: normal Lips: normal Profile: normal Nose: normal 4-chamber view: normal RVOT view: normal LVOT view: normal 3-vessel view: suboptimally visualized 0-rxnciw-zftyruc view: suboptimally visualized Heart / Thorax Diaphragm: suboptimal Cord insertion: normal Stomach: normal Kidneys: normal Bladder: normal Cervical spine: normal Thoracic spine: normal Lumbar spine: normal Sacral spine: normal Arms: normal Legs: normal Rt upper arm: normal Rt forearm: normal Rt hand: normal Lt upper arm: normal Lt forearm: normal Lt hand: normal Rt upper leg: normal Rt lower leg: normal Rt foot: normal Lt upper leg: normal Lt lower leg: normal Lt foot: normal sex: male Wants to know sex: yes Maternal Structures Uterus / Cervix Uterus: Visualized Cervix: Visualized Approach: Transabdominal Cervical length 33.1 mm Performed By: Elizabeth Gray RDMS, RVT Read By: Florina Lo M.D. MATERNAL MEDICINE [facility] Radiology Study observation (narrative) [facility] TSH SerPl-aCncon 02-28-2024 TSH Qn 2.790 m[IU]/L Normal 0.270-4.200 [facility] Comment on above: Order Comment: Speci men Type: BLOOD SPECIMENOrdering Facility: [facility] Address: [address] [place], [place] [address] [address] Result Comment: If t he patient is , TSH reference range varies by gestational period: First Trimester (weeks 9-12): 0.180-2.990 mIU/L Second Trimester: 0.110-3.980 mIU/L Third Trimester: 0.480-4.710 mIU/L Loki Montero et al. A Practical Approach for the Verifications and Determination of Site- and Trimester-Specific Reference Intervals for Thyroid Function tests in . Thyroid, 2019:29:3:412-420. Clifford Lock, et al. 2017 Guidelines of the [place] Thyroid Association for the Diagnosis and Management of Thyroid Disease during and the . Thyroid, 2017:27:3:315-389. Performed By: #### 3 016-3 ####[facility] [id number] [address] [place] 02-20-2024 CNPN Telephone (OBGYWM) RICHARD SMITH ([id number]) 1995 F Date Time Provider Department 02/20/24 ALFRED CHILDRESS OBGYWM During your visit today, we recorded the following information about you: Juana Traylor, RN 02/20/2024 8:52 AM Signed 15w2d Calling because she went to [facility] ER last night and was diagnosed with pneumonia. States she was prescribed Z-kalyani, albuterol inhaler and benzonatate. She was told to check with OB provider that meds are safe with for sure. HAYDEN Ruiz Rebecca L, MD 02/20/2024 9:39 AM Signed yes they are. I hope she feels better soon. MD Dash Collazo Trisha, RN 02/20/2024 9:54 AM Signed Patient notified. Juana Traylor RN Allergies As of Date: 02/20/2024 Noted Allergy Reaction IMITREX (SUMATRIPTAN) 11/16/2010 14 - Other: See Comments Comments: Patient stated her jaw locked up and hurt really bad Date Reviewed: 02/14/2024 Reviewed by: Jose Brink APRN.CROSSBOW MAKER - Fully Assessed Reason for Visit: Question (OB Question) [1253] Prescriptions as of 02/20/2024 - levothyroxine (SYNTHROID) 88 mcg tablet Take 1 tablet by mouth daily before breakfast. - aspirin, enteric coated (ECOTRIN LOW STRENGTH) 81 mg EC tablet Take 1 tablet by mouth once daily. - vit no.124/iron/folic ( VITAMIN ORAL) Take by mouth. - cetirizine (ZYRTEC) 10 mg tablet Take 1 tablet by mouth once daily. - fluticasone (FLONASE) 50 mcg/actuation nasal spray Use 2 Sprays in each nostril once daily. Rinse mouth after use. Problem List As Of Date 02/20/2024 Noted Resolved Migraine variant [G43.809] 01/07/2013 12/07/2023 Seasonal allergies [J30.2] 12/07/2023 Papanicolaou smear of cervix with low grade squ*02/12/2015 Calculus of gallbladder without biliary obstruc*08/10/2019 08/14/2019 Cholelithiasis [K80.20] 08/13/2019 08/14/2019 Biliary colic [K80.50] 08/13/2019 08/14/2019 History of pre-eclampsia [Z87.59] 05/16/2017 Elevated glucose [R73.09] 09/01/2019 11/25/2019 Irregular periods/menstrual cycles [N92.6] 09/01/2019 11/23/2023 Abdominal wall pain [R10.9] 11/03/2019 06/16/2020 Gastroesophageal reflux disease [K21.9] 11/03/2019 12/07/2023 JORJE (generalized anxiety disorder) [F41.1] 11/25/2019 12/07/2023 COVID-19 virus infection [U07.1] 01/30/2020 12/07/2023 RUQ pain [R10.11] 06/16/2020 11/23/2023 Diarrhea [R19.7] 06/16/2020 11/23/2023 Elevated liver enzymes [R74.8] 06/16/2020 12/07/2023 Screening for ischemic heart disease [Z13.6] 06/05/2022 11/23/2023 Hypertriglyceridemia [E78.1] 06/05/2022 12/07/2023 Dyslipidemia (high LDL; low HDL) [E78.5] 06/05/2022 12/07/2023 Pure hypercholesterolemia [E78.00] 06/05/2022 12/07/2023 Family history of congenital anomaly [Z82.79] 12/07/2023 History of anxiety [Z86.59] 12/07/2023 Obesity affecting in first trimester *12/07/2023 Encounter for supervision of high risk pregnanc*12/07/2023 Inverted nipple [N64.59] 12/07/2023 History of miscarriage [Z87.59] 12/07/2023 12/18/2023 PCOS (polycystic ovarian syndrome) [E28.2] 12/07/2023 with uncertain dates in first trimest*12/07/2023 Rubella non-immune status, antepartum [O09.899,*12/10/2023 Elevated TSH [R79.89] 12/10/2023 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 Narrative Narrative: Patient is a 28-year-old female who is a roughly 15 weeks . She states her other child got sick over [place] break and then she has been having congestion drainage and cough for approximately 2 weeks. She states that symptoms are not improving. She denies fevers or chills. She denies history of lung disorders such as asthma COPD or emphysema. With her she denies any vaginal bleeding or discharge. She states that as her symptoms have not improved over the past 2 weeks she does have concern for developing infection such as pneumonia and therefore comes in for evaluation [facility] Medical History unable to obtain Home Medications ???Medication ???Instructions ???Recorded ???Last Taken ???Type naproxen 500 mg tablet 500 mg PO BID #20 tabs 06/05/23 Unknown Rx phentermine 8 mg tablet (Lomaira) 8 mg PO DAILY 06/05/23 Unknown History azithromycin 250 mg tablet See Rx Instructions PO .COMPLEX #6 02/19/24 Unknown Rx (Zithromax Z-Kalyani) tabs benzonatate 200 mg capsule 200 mg PO TID PRN cough 7 days #21 02/19/24 Unknown Rx caps Allergy/AdvReac Type Severity Reaction Status Date / Time sumatriptan (From Imitrex) AdvReac PT UNSURE Verified 02/19/24 20:38 OF REACTION Social History Smoking Status: Never smoker substance use type: does not use ROS ROS ED Constitutional Constitutional ED: Denies chills or fever(s) Eyes Eyes: Denies blurry vision or change in vision ENT ENT ED: Reports rhinorrhea Cardiovascular Cardiovascular: Denies chest pain Respiratory/Chest Respiratory/Chest: Reports cough and dyspnea Gastrointestinal Gastrointestinal: Denies abdominal pain, diarrhea, nausea or vomiting Genitourinary Genitourinary ED: Reports other Details: Negative vaginal bleeding or discharge ; Denies dysuria or hematuria Musculoskeletal Musculoskeletal: Reports myalgias Integumentary Denies rash Neurologic Neurologic: Denies headache(s) Hematologic/Lymphatic Hematologic/Lymphatic: Denies easy bleeding or easy bruising Allergic/Immunologic Allergic/Immunologic ED: Denies mouth swelling or tongue swelling EXAM Physical Exam Const Vital Signs: 02/19/24 20:34 Temperature 98.4 F Temperature Source Oral Pulse Rate 106 H Respiratory Rate 16 Blood Pressure 111/86 H Blood Pressure Mean 94 Pulse Ox 97 Oxygen Delivery Method Room Air Positive well nourished and well developed General Appearance ED: well developed; Negative for pallor HEENT HEENT Narrative: Bilateral TMs are retracted right greater than left without secondary findings to suggest infection Nasal mucosa is hyperemic and boggy with enlarged inferior nasal turbinates There is cobblestoning noted in the posterior pharynx consistent with sinus drainage without airway edema or compromise; no secondary findings to suggest infection Eyes PERRL and EOMs intact bilaterally Neck supple and no JVD Resp normal respiratory effort Resp Narrative: Breath sounds are slightly diminished throughout with faint expiratory wheeze however in the right lower lobe there is asymmetrical rhonchi noted. Cardio regular rate and regular rhythm GI normal to inspection, nondistended, normoactive bowel sounds, non-tender and non-distended GI Narrative: Abdomen is soft nontender nondistended with normal active bowel sounds. Fundus is appropriate with reported gestational age. Auscultation: normoactive bowel sounds Palpation: soft Extremity normal to inspection Extremity Narrative: No asymmetric edema no pitting edema negative Homans' sign bilaterally Neuro oriented x3, CN's II-XII intact bilaterally and no sensory deficits noted Sensorium / Orientation: alert Motor Exam: strength 5/5 throughout Psych mental status grossly normal Skin no rashes or lesions noted General Skin Exam: Negative for jaundice or pallor MDM MDM MDM Narrative Medical decision making narrative: Patient arrived to the ER with stable vitals and in no acute respiratory distress. With her report of congestion and cough this is most likely COVID versus influenza versus RSV or some other type of viral process such as rhinovirus or human metapneumo virus. However as she does have asymmetric right lower lobe breath sounds there is concern for developing pneumonia. I discussed with patient potential (more content not included)... Normal [facility] CNOVon 02-14-2024 CNOV Office Visit (UCWSTR ) RICHARD SMITH ([id number]) 1995 F Date Time Provider Department 02/14/24 2:30 PM [facility] During your visit today, we recorded the following information about you: Temperature Pulse Respiration Blood pressure 98.3 degrees 100/minute 18/minute 105/72 Weight 95 kg Jose Brink, GUM REMOVER.CROSSBOW MAKER 02/14/2024 2:54 PM Signed Subjective HPI Nontoxic-appearing 28-year-old female who is currently 14 weeks presents urgent care chief complaint flulike symptoms. Duration of symptoms 4 days. Associated symptoms headache body aches chills sore throat ear pain nausea cough fatigue. States has some chest discomfort with coughing only. Sick contacts possibly at work. Did take Tylenol today. Denies any vomiting fevers abdominal pain shortness of breath or hemoptysis. No pleuritic pain. Past medical history prescription medications allergies reviewed. .Patient presents with: Headache: Body aches, ear pain, nausea, sore throat, cough, chest feels on fire x 4 days PAST MEDICAL HISTORY Diagnosis Date Abnormal Pap smear of cervix anxiety Calculus of gallbladder without biliary obstruction 08/10/2019 Cervical intraepithelial neoplasia grade 1 2016 COVID-19 virus infection 01/30/2020 Positive test 01/17/20 (symptoms started 01/15) Overall symptoms gradually improving and almost resolved today. Completed course of decadron for respiratory symptoms. Reassured patient that feels that her course of illness is near complete and happy that her symptoms seem to be resolved. No further action at this time. Dyslipidemia (high LDL; low HDL) 06/05/2022 Elevated glucose 09/01/2019 Patient had elevated glucose on last BMP. BMI elevated, No FM history of diabetes. 08/2019: Hba1c 5.3 Elevated liver enzymes 2019 Noted hepatic steatosis on RUQ US in 2019 JORJE (generalized anxiety disorder) 11/25/2019 Likes current dose of zoloft. Continue. 11/25/2019 JORJE 7:11 PHQ 9: 4 Counseling referral placed. Interested in medications, will plan to start zoloft, titrate from 25 mg to 50 mg in next week. Will message in 4 weeks on symptoms. HISTORICAL prozac in past with minimal relief. Gastroesophageal reflux disease 11/03/2019 Symptoms of burning after eating, didn't seem to improve with Pepcid alone -Plan: begin PPI trial x 4 weeks, recommended she return in 2-4 weeks or sooner if symptoms are not improving Hypertriglyceridemia 06/05/2022 Inverted nipple Migraine variant 01/07/2013 Seems to be more tension headache then migraine. ibuprofen prn has provided relief Historical: Patient tried amitriptyline which helped with headaches but made too fatigued Pure hypercholesterolemia 06/05/2022 Seasonal allergies flonase. Shingles outbreak PAST SURGICAL HISTORY Procedure Laterality Date CHOLECYSTECTOMY HX 08/2019 DANDC, DIAG AND/OR THERAPEUTIC 2019 Missed ab ALLERGIES Imitrex [Sumatriptan] MEDICATIONS levothyroxine (SYNTHROID) 88 mcg tablet Take 1 tablet by mouth daily before breakfast. aspirin, enteric coated (ECOTRIN LOW STRENGTH) 81 mg EC tablet Take 1 tablet by mouth once daily. vit no.124/iron/folic ( VITAMIN ORAL) Take by mouth. cetirizine (ZYRTEC) 10 mg tablet Take 1 tablet by mouth once daily. fluticasone (FLONASE) 50 mcg/actuation nasal spray Use 2 Sprays in each nostril once daily. Rinse mouth after use. FAMILY HISTORY Problem Relation Age of Onset Anxiety disorder Mother No Known Problems Father Anxiety disorder Sister No Known Problems Sister No Known Problems Brother No Known Problems Brother Hypertension Maternal Grandmother Lipids Maternal Grandmother COPD Maternal Grandfather other (smoker) Maternal Grandfather Lung Cancer Paternal Grandmother Cancer Paternal Grandfather bone? Social History Tobacco Use Smoking status: Never Smokeless tobacco: Never Vaping Use Vaping status: Never Used Substance Use Topics Alcohol use: Not Currently Comment: social Drug use: No BP 105/72 Pulse 100 Temp 36.8 ?C (98.3 ?F) Resp 18 Wt 95 kg (209 lb 7 oz) LMP 10/16/2023 (Approximate) SpO2 98% BMI 35.32 kg/m? Review of Systems Constitutional: Positive for chills and malaise/fatigue. Negative for fever. HENT: Positive for congestion and sore throat. Negative for ear discharge, ear pain and sinus pain. Eyes: Negative for blurred vision, pain, discharge and redness. Respiratory: Positive for cough. Negative for hemoptysis, sputum production, shortness of breath, wheezing and stridor. Cardiovascular: Negative for chest pain. Gastrointestinal: Negative for abdominal pain, diarrhea, nausea and vomiting. Musculoskeletal: Positive for myalgias. Skin: Negative for itching and rash. Neurological: Positive for headaches. Negative for dizziness. Objective Physical Exam Constitutional: General: She is no (more content not included)... Normal [facility] COVID AND INFLUENZA A/B AND RSV PCR, ROUTINEon 02-14-2024 SARS-CoV-2 (COVID-19) RNA MARK ANTHONY+probe Ql (Unsp spec) SARS-COV-2 (AGENT OF COVID-19) RNA: Not detected INFLUENZA A RNA: Not detected INFLUENZA B RNA: Not detected RESPIRATORY SYNCYTIAL VIRUS (RSV) RNA: Not detected Normal [facility] Comment on above: Performed By: #### C VFLRS ####[facility] [id number] [address] [facility] Rox 02-01-2024 CNPN Telephone (OBGYWM) RICHARD SMITH ([id number]) 1995 F Date Time Provider Department 02/01/24 ELKIN MARTINEZ During your visit today, we recorded the following information about you: Allergies As of Date: 02/01/2024 Noted Allergy Reaction IMITREX (SUMATRIPTAN) 11/16/2010 14 - Other: See Comments Comments: Patient stated her jaw locked up and hurt really bad Date Reviewed: 01/31/2024 Reviewed by: Ankita Hawkins MA - Fully Assessed Reason for Visit: Results [95] Primary Visit Diagnosis:Yeast vaginitis [B37.31] Order(s):miconazole (MONISTAT 7) 2 % vaginal creamUse 1 Applicator vaginally daily at bedtime for 7 days.Disp: 45 gRfl: 0 Prescriptions as of 02/01/2024 - miconazole (MONISTAT 7) 2 % vaginal cream Use 1 Applicator vaginally daily at bedtime for 7 days. - levothyroxine (SYNTHROID) 88 mcg tablet Take 1 tablet by mouth daily before breakfast. - aspirin, enteric coated (ECOTRIN LOW STRENGTH) 81 mg EC tablet Take 1 tablet by mouth once daily. - vit no.124/iron/folic ( VITAMIN ORAL) Take by mouth. - cetirizine (ZYRTEC) 10 mg tablet Take 1 tablet by mouth once daily. - fluticasone (FLONASE) 50 mcg/actuation nasal spray Use 2 Sprays in each nostril once daily. Rinse mouth after use. Problem List As Of Date 02/01/2024 Noted Resolved Migraine variant [G43.809] 01/07/2013 12/07/2023 Seasonal allergies [J30.2] 12/07/2023 Papanicolaou smear of cervix with low grade squ*02/12/2015 Calculus of gallbladder without biliary obstruc*08/10/2019 08/14/2019 Cholelithiasis [K80.20] 08/13/2019 08/14/2019 Biliary colic [K80.50] 08/13/2019 08/14/2019 History of pre-eclampsia [Z87.59] 05/16/2017 Elevated glucose [R73.09] 09/01/2019 11/25/2019 Irregular periods/menstrual cycles [N92.6] 09/01/2019 11/23/2023 Abdominal wall pain [R10.9] 11/03/2019 06/16/2020 Gastroesophageal reflux disease [K21.9] 11/03/2019 12/07/2023 JORJE (generalized anxiety disorder) [F41.1] 11/25/2019 12/07/2023 COVID-19 virus infection [U07.1] 01/30/2020 12/07/2023 RUQ pain [R10.11] 06/16/2020 11/23/2023 Diarrhea [R19.7] 06/16/2020 11/23/2023 Elevated liver enzymes [R74.8] 06/16/2020 12/07/2023 Screening for ischemic heart disease [Z13.6] 06/05/2022 11/23/2023 Hypertriglyceridemia [E78.1] 06/05/2022 12/07/2023 Dyslipidemia (high LDL; low HDL) [E78.5] 06/05/2022 12/07/2023 Pure hypercholesterolemia [E78.00] 06/05/2022 12/07/2023 Family history of congenital anomaly [Z82.79] 12/07/2023 History of anxiety [Z86.59] 12/07/2023 Obesity affecting in first trimester *12/07/2023 Encounter for supervision of high risk pregnanc*12/07/2023 Inverted nipple [N64.59] 12/07/2023 History of miscarriage [Z87.59] 12/07/2023 12/18/2023 PCOS (polycystic ovarian syndrome) [E28.2] 12/07/2023 with uncertain dates in first trimest*12/07/2023 Rubella non-immune status, antepartum [O09.899,*12/10/2023 Elevated TSH [R79.89] 12/10/2023 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 Encounter Status:Closed by JUANA TRAYLOR on 02/01/24 Normal [facility] BACTERIAL VAGINOSIS NAATon 1 04-02-2023 Lactobacillus crispatus+gasseri+mary senii + Gardnerella vaginalis + Atopobium vaginae rRNA MARK ANTHONY+probe Ql (Vag fld) Not detected Normal Not detected [facility] Comment on above: Order Comment: Speci men Type: SWABOrdering Facility: [facility] Address: [address] [place] [address] Performed By: #### ELKE WANG ####[facility] [id number] [address] [place] [address] [place] DARYA/TRICHOMONAS NAATon 1 04-02-2023 C. glabrata RNA MARK ANTHONY+probe Ql (Vag fld) Not detected Normal Not detected [facility] Comment on above: Order Comment: Speci men Type: SWABOrdering Facility: [facility] Address: [address] [place] [address] Performed By: #### B VAMP, CVTV ####[facility] [id number] [address] OF [place] Darya sp DNA MARK ANTHONY+probe Ql (Vag fld) Detected Abnormal Not detected [facility] Comment on above: Order Comment: Speci men Type: SWABOrdering Facility: [facility] Address: [address] [place] [address] Result Comment: The Darya species group target includes C. albicans, C. tropicalis, C. parapsilosis, and C. dubliniensis. Performed By: #### B VAMP, CVTV ####[facility] [id number] [address] OF [facility] T. vaginalis DNA MARK ANTHONY+probe Ql (Unsp spec) Not detected Normal Not detected [facility] Comment on above: Order Comment: Speci men Type: SWABOrdering Facility: [facility] Address: [address] [place] [address] Performed By: #### B VAMP, CVTV ####[facility] [id number] [address] OF [place] [facility] SM[facility] ([id number]) 1995 F Date Time Provider Department 01/31/24 ELSA CHAUDHARY 4CQ During your visit today, we recorded the following information about you: Xenia Jamison 01/31/2024 10:36 AM Signed Pt asking to schedule her [address] order. Thank you Zohra Cortés RN 01/31/2024 10:40 AM Signed Early anatomy US pending. Please file if appropriate and will call Pt to get scheduled. 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 - aspirin, enteric coated (ECOTRIN LOW STRENGTH) 81 mg EC tablet Take 1 tablet by mouth once daily. - vit no.124/iron/folic ( VITAMIN ORAL) Take by mouth. - cetirizine (ZYRTEC) 10 mg tablet Take 1 tablet by mouth once daily. - fluticasone (FLONASE) 50 mcg/actuation nasal spray Use 2 Sprays in each nostril once daily. Rinse mouth after use. Problem List As Of Date 01/31/2024 Noted Resolved Migraine variant [G43.809] 01/07/2013 12/07/2023 Seasonal allergies [J30.2] 12/07/2023 Papanicolaou smear of cervix with low grade squ*02/12/2015 Calculus of gallbladder without biliary obstruc*08/10/2019 08/14/2019 Cholelithiasis [K80.20] 08/13/2019 08/14/2019 Biliary colic [K80.50] 08/13/2019 08/14/2019 History of pre-eclampsia [Z87.59] 05/16/2017 Elevated glucose [R73.09] 09/01/2019 11/25/2019 Irregular periods/menstrual cycles [N92.6] 09/01/2019 11/23/2023 Abdominal wall pain [R10.9] 11/03/2019 06/16/2020 Gastroesophageal reflux disease [K21.9] 11/03/2019 12/07/2023 JORJE (generalized anxiety disorder) [F41.1] 11/25/2019 12/07/2023 COVID-19 virus infection [U07.1] 01/30/2020 12/07/2023 RUQ pain [R10.11] 06/16/2020 11/23/2023 Diarrhea [R19.7] 06/16/2020 11/23/2023 Elevated liver enzymes [R74.8] 06/16/2020 12/07/2023 Screening for ischemic heart disease [Z13.6] 06/05/2022 11/23/2023 Hypertriglyceridemia [E78.1] 06/05/2022 12/07/2023 Dyslipidemia (high LDL; low HDL) [E78.5] 06/05/2022 12/07/2023 Pure hypercholesterolemia [E78.00] 06/05/2022 12/07/2023 Family history of congenital anomaly [Z82.79] 12/07/2023 History of anxiety [Z86.59] 12/07/2023 Obesity affecting in first trimester *12/07/2023 Encounter for supervision of high risk pregnanc*12/07/2023 Inverted nipple [N64.59] 12/07/2023 History of miscarriage [Z87.59] 12/07/2023 12/18/2023 PCOS (polycystic ovarian syndrome) [E28.2] 12/07/2023 with uncertain dates in first trimest*12/07/2023 Rubella non-immune status, antepartum [O09.899,*12/10/2023 Elevated TSH [R79.89] 12/10/2023 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 - Single, live, intrauterine . - [place] rump length measurement is consistent with the established gestational age. - A qualitative screen of the nuchal translucency and other anatomic structures was unremarkable on a complete first trimester anatomic assessment. There appears to be single umbilical artery, this should be confirmed at anatomy ultrasound - Not all structural malformations can be detected by ultrasound examination. Maternal Structures: Right Ovary: Size 40 mm x 25 mm x 26 mm Left Ovary: Size 37 mm x 18 mm x 19 mm Recommendations - A standard anatomic survey at 16 weeks can be offered and a detailed exam at 20 weeks is recommended for increased risk. Maternal Assessment Height 163 cm Height (ft) 5 ft Height (in) 4 in Physical Exam Initial weight (lb) 196 lb Initial BMI 33.64 kg/m Method Transabdominal ultrasound examination Estrada . Number of fetuses: 1 Dating LMP on: 10/16/2023 Cycle: irregular cycle GA by LMP 15 w + 2 d MARYJANE by LMP: 07/22/2024 GA by prior assessment 12 w + 3 d MARYJANE by prior assessment: 08/11/2024 Ultrasound examination on: 01/31/2024 GA by U/S based upon: CRL GA by U/S 12 w + 5 d MARYJANE by U/S: 08/09/2024 Assigned: based on ultrasound (CRL), selected on 12/28/2023 Assigned GA 12 w + 3 d Assigned MARYJANE: 08/11/2024 General Evaluation Cardiac activity present Placenta: posterior Cord vessels: 2 vessel cord, normal insertion Amniotic fluid: normal amount Biometry Standard FHR 169 bpm CRL 62.8 mm 12w 5d 58% [place] First Trimester Anatomy Calvarium: normal Falx cerebri: normal Choroid plexus: normal Profile: normal Nasal bone: normal Retronasal triangle: normal Maxilla: normal Mandible: normal Nuchal translucency: Unremarkable Situs: normal Cardiac position: normal Cardiac axis: normal 4-chamber view: normal 4-chamber view with color: normal [id number] view: normal Abdominal cord insertion: normal Stomach: normal Kidneys: normal Bladder: normal Color doppler of perivesical umbilical arteries: normal Vertebral alignment: normal Arms: normal Hands: normal Legs: normal Feet: normal Maternal Structures Uterus / Cervix Uterus: Visualized Uterus position: anteverted Ovaries / Tubes / Adnexa Rt ovary: Visualized Rt ovary morphology: normal Rt ovary D1 40 mm Rt ovary D2 25 mm Rt ovary D3 26 mm Rt ovary Vol 13.6 cm Lt ovary: Visualized Lt ovary morphology: normal Lt ovary D1 37 mm Lt ovary D2 18 mm Lt ovary D3 19 mm Lt ovary Vol 6.4 cm Performed By: Annie Ruiz RDMS Read By: Florina Lo M.D. MATERNAL MEDICINE [facility] Radiology Study observation (narrative) [facility] [id number] PLUSon 01-15-2024 Cell-free DNA./Cell-free DNA.total Dosage of chromosome-specific cfDNA (cfDNA) [Molar fraction] 11% Normal [facility] Comment on above: Order Comment: Speci men Type: BLOOD SPECIMEN Ordering Facility: [facility] Address: [address] [place] [address] Performed By: #### M AT21 #### [facility] CLIA [id number] [place] [address]402 Chr 13+18+21+X+Y aneuploidy Dosage of chromosome-specific cfDNA Ql (cfDNA) Negative Normal [facility] Comment on above: Order Comment: Speci men Type: BLOOD SPECIMEN Ordering Facility: [facility] Address: [address] [place] [address] Performed By: #### M AT21 #### [facility] CLIA [id number] [address] [place] [address] 44946 Chr 21 trisomy Dosage of chromosome-specific cfDNA Ql (cfDNA) Negative Normal [facility] Comment on above: Order Comment: Speci men Type: BLOOD SPECIMEN Ordering Facility: [facility] Address: [address] [place] [address] Performed By: #### M AT21 #### [facility] CLIA [id number] [address] [place] [address]35 Chr X and Y aneuploidy risk Sequencing Ql (cfDNA) [Interp] Not detected Normal [facility] Comment on above: Order Comment: Speci men Type: BLOOD SPECIMEN Ordering Facility: [facility] Address: [address] [place] [address] Result Comment: Not Detected Not Detected Performed By: #### M AT21 #### [facility] CLIA [id number] [address] [place] [address] Citation Javid (Reference lab test) Comment [facility] Comment on above: Order Comment: Speci men Type: BLOOD SPECIMEN Ordering Facility: [facility] Address: [address] [place] [address] Result Comment: 1. P kaity JOSUE, et al. Anayeli Med. 2012;14(3):296-305. 2. Alfredo LOUIE et al. Prenat Diag. 2013;33(6):591-597. 3. Mike C, et al. Clin Chem. 2015 Apr;61(4):608-616. 4. Tacos JOSUE, et al. Anayeli Med. 2011;13(11):913-920. 5. ACOG/[facility] Practice Bulletin No. 226, Nov 2019. Performed By: #### M AT21 #### [facility] CLIA [id number] [address] [place] [address] Gestational age Estimated from conception date Estrada [facility] Comment on above: Order Comment: Speci men Type: BLOOD SPECIMEN Ordering Facility: [facility] Address: [address] [place] [address] Performed By: #### M AT21 #### [facility] CLIA [id number] [address] [place] [address] GESTATIONALAGE AGE > OR = 9W Yes [facility] Comment on above: Order Comment: Speci men Type: BLOOD SPECIMEN Ordering Facility: [facility] Address: [address] [place] [address] Performed By: #### M AT21 #### [facility] CLIA [id number] [address] [place] [address] Laboratory comment Javid (Report) Comment [facility] Comment on above: Order Comment: Speci men Type: BLOOD SPECIMEN Ordering Facility: [facility] Address: [address], [place] [address] Result Comment: The MaterniT(R) 21 PLUS laboratory-developed test (LDT) analyzes circulating cell-free DNA from a maternal blood sample. This test is used for screening purposes and not diagnostic. Clinical correlation is recommended. Validation data on twin pregnancies is limited and the ability of this test to detect aneuploidy in higher multiple gestations has not yet been validated. Performed By: #### M AT21 #### [facility] CLIA [id number] [address] [place] [address] director alliance marketing name Nom (Provider) Comment [facility] Comment on above: Order Comment: Teodora sanderson Type: BLOOD SPECIMEN Ordering Facility: [facility] Address: [address] [place] [address] Result Comment: This specimen showed an expected representation of chromosome 21, 18 and 13 material. Clinical correlation is suggested. Comment Vu Estrada MD, PhD, Director, [employer] Performed By: #### M AT21 #### [facility] CLIA [id number] [address] [place] [id number] LIMITATIONS OF THE TEST Comment [facility] Comment on above: Order Comment: Teodora sanderson Type: BLOOD SPECIMEN Ordering Facility: [facility] Address: [address] [place] [address] Result Comment: Ricardo lock the results of these tests are highly reliable, discordant results, including inaccurate sex prediction, may occur due to placental, maternal, or mosaicism or neoplasm; vanishing twin; prior maternal organ transplant; or other causes. These tests are screening tests and not diagnostic; they do not replace the accuracy and precision of diagnosis with CVS or amniocentesis. A patient with a positive test result should be referred for genetic counseling and offered invasive diagnosis for confirmation of test results.[5] The results of this testing, including the benefits and limitations, should be discussed with a qualified healthcare provider. management decisions, including termination of the , should not be based on the results of these tests alone. The healthcare provider is responsible for the use of this information in the management of their patient. Sex chromosomal aneuploidies are not reportable for known multiple gestations. A negative result does not ensure an unaffected nor does it exclude the possibility of other chromosomal abnormalities or defects which are not a part of these tests. An uninformative result may be reported, the causes of which may include, but are not limited to, insufficient sequencing coverage, noise or artifacts in the region, amplification or sequencing bias, or insufficient fraction. These tests are not intended to identify pregnancies at risk for neural tube defects or ventral wall defects. Testing for whole chromosome abnormalities (including sex chromosomes) and for subchromosomal abnormalities could lead to the potential discovery of both and maternal genomic abnormalities that could have major, minor, or no, clinical significance. Evaluating the significance of a positive or a non-reportable result may involve both invasive testing and additional studies on the mother. Such investigations may lead to a diagnosis of maternal chromosomal or subchromosomal abnormalities, which on occasion may be associated with benign or malignant maternal neoplasms. These tests may not accurately identify triploidy, balanced rearrangements, or the precise location of subchromosomal duplications or deletions; these may be detected by diagnosis with CVS or amniocentesis. The ability to report results may be impacted by maternal BMI, maternal weight, maternal systemic lupus erythematosus (SLE) and/or by certain pharmaceutical agents such as low molecular weight heparin (for example: Lovenox(R), Xaparin(R), Clexane(R) and Fragmin(R)). Performed By: #### M AT21 #### [facility] CLIA [id number] [address] [place] [address] Monosomy X risk Dosage of chromosome-specific cfDNA Ql (Plasma cell-free+WBC DNA) [Interp] Not detected Normal [facility] Comment on above: Order Comment: Teodora sanderson Type: BLOOD SPECIMEN Ordering Facility: [facility] Address: [address] [place] [address] Performed By: #### M AT21 #### [facility] CLIA [id number] [address] [place] [address] NEGATIVE PREDICTIVE VALUE Note Normal [facility] Comment on above: Order Comment: Teodora sanderson Type: BLOOD SPECIMEN Ordering Facility: [facility] Address: [address] [place] [address] [place], [place] [id number] Result Comment: The Negative Predictive Value (NPV) for trisomy 21, 18, and 13 is greater than 99%. The NPV for SCA and ESS cannot be calculated as SCA and ESS are only reported when an abnormality is detected. Performed By: #### M AT21 #### [facility] CLIA [id number] [address] [place] [address] NOTE Comment Normal [facility] Comment on above: Order Comment: Teodora sanderson Type: BLOOD SPECIMEN Ordering Facility: [facility] Address: [address] [place], [place] [address] Result Comment: See Notes [employer] is a subsidiary of [employer], using the brand [facility]. This test was developed and its performance characteristics determined by [facility]. It has not been cleared or approved by the Food and Drug Administration. This laboratory is certified under the Clinical Laboratory Improvement Amendments (CLIA) as qualified to perform high complexity clinical laboratory testing and accredited by the [employer] (CAP). If there is future clinical need for adding MaterniT GENOME testing, this specimen will be available until term. [facility] samples will not be retained beyond 60 days. [facility] patients will have to send a new sample for re-sequencing ([facility] Test Code: [id number]). Performed By: #### M AT21 #### [facility] IA [id number] [address] [place] [address] PERFORMANCE CHARACTERISTICS Note Normal [facility] Comment on above: Order Comment: Teodora sanderson Type: BLOOD SPECIMEN Ordering Facility: [facility] Address: [address] [place] [address] Result Comment: ! Sex ! Accuracy: 99.4% ! ! ! ! Region (associated syndrome) ! Est. Sens# ! Est. Spec ! ! ! ! Trisomy 21 (Down Syndrome) ! 99.1% ! 99.9% ! ! ! ! Trisomy 18 (Westbrook Syndrome) ! >99.9% ! 99.6% ! ! ! ! Trisomy 13 (Patau Syndrome) ! 91.7% ! 99.7% ! ! ! ! Sex Chromosome Aneuploidies## ! 96.2% ! 99.7% ! ! ! * As reported in ISCA database nstd37 [https://www.ncbi.nlm.nih.gov/dbvar/studies/nstd37/ ] # Estimated Sensitivity. Sensitivity estimated across the observed size distribution of each syndrome [per ISCA database nstd37] and across the range of fractions observed in routine clinical NIPT. Actual sensitivity can also be influenced by other factors such as the size of the event, total sequence counts, amplification bias, or sequence bias. ## Estrada gestation only. Performed By: #### M AT21 #### [facility] IA [id number] [address] [facility] [place] [address] POSITIVE PREDICTIVE VALUE N/A Normal [facility] Comment on above: Order Comment: Speci men Type: BLOOD SPECIMEN Ordering Facility: [facility] Address: [address] [place] [address] Performed By: #### M AT21 #### [facility] CLIA [id number] [address] [place] [address] Reference Lab Test Method Comment [facility] Comment on above: Order Comment: Speci men Type: BLOOD SPECIMEN Ordering Facility: [facility] Address: [address] [place] [address] Result Comment: See Notes Circulating cell-free DNA was purified from the plasma component of maternal blood. The extracted DNA was then converted into a genomic DNA library for aneuploidy analysis of chromosomes 21, 18, and 13 via next generation sequencing.[1] Optional findings based on the test order include sex chromosome aneuploidy (SCA)[2], and enhanced sequencing series (ESS)[3], which will only be reported on as an additional finding when an abnormality is detected. SCA testing includes information on X and Y representation, while ESS testing includes deletions in selected regions (22q, 15q, 11q, 8q, 5p, 4p, 1p) and trisomy of chromosomes 16 and 22. Performed By: #### M AT21 #### [facility] CLIA [id number] [address] [place] [address] Sex Dosage of chromosome-specific cfDNA Nom (cfDNA) Comment Normal [facility] Comment on above: Order Comment: Speci men Type: BLOOD SPECIMEN Ordering Facility: [facility] Address: [address] [place] [address] Result Comment: Cons istent with Male Performed By: #### M AT21 #### [facility] CLIA [id number] [address] [place] [address] Test performance information Javid (Unsp spec) Comment [facility] Comment on above: Order Comment: Speci men Type: BLOOD SPECIMEN Ordering Facility: [facility] Address: [address] [place] [address] Result Comment: The performance characteristics of the MaterniT(R) 21 PLUS laboratory-developed test (LDT) have been determined in a clinical validation study with women at increased risk for chromosomal aneuploidy.[1-4] Performed By: #### M AT21 #### [facility] CLIA [id number] [address] [place] [address] Trisomy 13 risk Dosage of chromosome-specific cfDNA Ql (cfDNA) [Interp] Negative Normal [facility] Comment on above: Order Comment: Speci men Type: BLOOD SPECIMEN Ordering Facility: [facility] Address: [address] [place] [address] Performed By: #### M AT21 #### [facility] CLIA [id number] [address] [place] [address] Trisomy 18 risk Dosage of chromosome-specific cfDNA Ql (Plasma cell-free+WBC DNA) [Interp] Negative Normal [facility] Comment on above: Order Comment: Speci men Type: BLOOD SPECIMEN Ordering Facility: [facility] Address: [address] [place] [address] Performed By: #### M AT21 #### [facility] CLIA [id number] [address] [place] [address] [place] Pelv[place] 12-30-2023 Indication Viability, dating, history of PCOS Impression Anteverted uterus measuring 105 x 69 x 54 mm. - Single, live, intrauterine . - An intrauterine gestational sac with a yolk sac and pole is present. - [place] rump length measurement is NOT consistent with the dating provided. Therefore, dating is now based on today?s crown rump length. The final EDC is 08/11/2024 - heart rate is within normal limits. Right Ovary Visualized Size 35 mm x 29 mm x 48 mm. Vol 25.0 cm Cyst(s) Size 26 mm x 27 mm x 24 mm. Mean 25.7 mm. Vol 8.822 cm . Hemorrhagic cyst with reticular pattern/clot Left Ovary Visualized Size 29 mm x 16 mm x 17 mm. Vol 4.1 cm Morphology: premenopausal normal follicular Cul de Sac Visualized. no free fluid visualized Recommendations Viable single intrauterine at 7 weeks 4 days gestation. Follow up as clinically indicated. Method Transabdominal and transvaginal ultrasound examination. View: Adequate visualization Estrada . Number of embryos: 1 Dating LMP on: 10/16/2023 Cycle: irregular cycle GA by LMP 10 w + 3 d MARYJANE by LMP: 07/22/2024 Ultrasound examination on: 12/28/2023 GA by U/S based upon: CRL GA by U/S 7 w + 4 d MARYJANE by U/S: 08/11/2024 Assigned: based on ultrasound (CRL), selected on 12/28/2023 Assigned GA 7 w + 4 d Assigned MARYJANE: 08/11/2024 Assessment Gestational sac: visualized Location: intrauterine Yolk sac: visualized YS 2.9 mm <1% Gr[place] Embryo: visualized CRL 13.4 mm 7w 4d 93% [place] Cardiac activity: present FHR 151 bpm Maternal Structures Uterus / Cervix Uterus: Visualized Uterus position: anteverted Description of uterine malformations: none Myometrium: normal Uterus length 105 mm Uterus width 69 mm Uterus height 54 mm Uterus Vol 205.6 cm Endometrium: Live IUP within Cervix: Visualized Cervix details: normal Other: small subchorionic bleed noted Ovaries / Tubes / Adnexa Rt ovary: Visualized Rt ovary D1 35 mm Rt ovary D2 29 mm Rt ovary D3 48 mm Rt ovary Vol 25.0 cm Rt ovarian cyst(s): Cysts identified Rt ovarian cyst D1 26 mm Rt ovarian cyst D2 27 mm Rt ovarian cyst D3 24 mm Rt ovarian cyst mean 25.7 mm Rt ovarian cyst vol 8.822 cm Rt ovarian cyst findings: Hemorrhagic cyst with reticular pattern/clot Lt ovary: Visualized Lt ovary morphology: premenopausal normal follicular Lt ovary D1 29 mm Lt ovary D2 16 mm Lt ovary D3 17 mm Lt ovary Vol 4.1 cm Cul de Sac / Bladder / Kidneys / Other Cul de Sac: Visualized Free fluid: no free fluid visualized Performed By: Louann Bello RDMS Read By: Kaitlyn Blank M.D. MATERNAL MEDICINE [facility] [place] Pelvison 12-28-2023 Radiology Study observation (narrative) [facility] Blood type and Indirect anti body screen panel (Bld)on 12-24-2023 ABO group Nom (Bld) A [facility] Blood group antibody screen Ql Negative [facility] D Ag Ql (Bld) Positive [facility] ABO group Nom (Bld) A Normal [facility] Comment on above: Performed By: #### 3 4532-2 #### TERESA YOON ([id number]) [facility] [address] [place] [address] Blood group antibody screen Ql Negative [facility] Comment on above: Performed By: #### 3 4532-2 #### TERESA YOON ([id number]) [facility] [address] [place] [address] [place] D Ag Ql (Bld) Positive [facility] Comment on above: Performed By: #### 3 4532-2 #### TERESA YOON ([id number]) [facility] [address] [place] [address] US CBC W Auto Differential pane l (Bld)on 12-24-2023 Basophils (Bld) [#/Vol] 0.04 10*3/uL [facility] Basophils/100 WBC (Bld) 0.5 % 0.0 - 2.0 % [facility] Eosinophils (Bld) [#/Vol] 0.24 10*3/uL [facility] Eosinophils/100 WBC (Bld) 2.8 % 0.0 - 6.0 % [facility] Erythrocyte distribution width (RBC) [Ratio] 12.4 % 11.5 - 14.5 % [facility] Hematocrit (Bld) [Volume fraction] 39.4 % 36.0 - 46.0 % [facility] Hemoglobin (Bld) [Mass/Vol] 13.3 g/dL 12.0 - 16.0 g/dL [facility] Immature granulocytes (Bld) [#/Vol] 0.05 10*3/uL [facility] Immature granulocytes/100 WBC (Bld) 0.6 % 0.0 - 0.9 % [facility] Comment on above: Immature Granulocyte Count (IG) includes promyelocytes, myelocytes and metamyelocytes but does not include bands. Percent differential counts (%) should be interpreted in the context of the absolute cell counts (cells/UL). Lymphocytes (Bld) [#/Vol] 2.46 10*3/uL [facility] Lymphocytes/100 WBC (Bld) 28.3 % 13.0 - 44.0 % [facility] MCH (RBC) [Entitic mass] 29.8 pg 26.0 - 34.0 pg [facility] MCHC (RBC) [Mass/Vol] 33.8 g/dL 32.0 - 36.0 g/dL [facility] MCV (RBC) [Entitic vol] 88 fL 80 - 100 fL [facility] Monocytes (Bld) [#/Vol] 0.52 10*3/uL [facility] Monocytes/100 WBC (Bld) 6 % 2.0 - 10.0 % [facility] Neutrophils (Bld) [#/Vol] 5.38 10*3/uL [facility] Comment on above: Percent differential counts (%) should be interpreted in the context of the absolute cell counts (cells/uL). Neutrophils/100 WBC (Bld) 61.8 % 40.0 - 80.0 % [facility] Nucleated RBC/100 WBC (Bld) [Ratio] 0 % [facility] Platelets (Bld) [#/Vol] 211 10*3/uL [facility] RBC (Bld) [#/Vol] 4.46 10*6/uL [facility] WBC (Bld) [#/Vol] 8.7 10*3/uL [facility] Basophils (Bld) [#/Vol] 0.04 x10*3/uL Normal 0.00-0.10 [facility] Comment on above: Performed By: #### 5 7021-8 #### TERESA YOON ([id number]) [facility] ([facility]) [address] [place] [address] Basophils/100 WBC (Bld) 0.5 % Normal 0.0-2.0 [facility] Comment on above: Performed By: #### 5 7021-8 #### TERESA YOON ([id number]) [facility] ([facility]) [address] [place] [address]873 Eosinophils (Bld) [#/Vol] 0.24 x10*3/uL Normal 0.00-0.70 [facility] Comment on above: Performed By: #### 5 7021-8 #### TERESA YOON ([id number]) [facility] ([facility]) [address] [place] [address] 14028 Eosinophils/100 WBC (Bld) 2.8 % Normal 0.0-6.0 [facility] Comment on above: Performed By: #### 5 7021-8 #### TERESA YOON ([id number]) [facility] ([facility]) [address] [place] [address]70 Erythrocyte distribution width (RBC) [Ratio] 12.4 % Normal 11.5-14.5 [facility] Comment on above: Performed By: #### 5 7021-8 #### TERESA YOON ([id number]) [facility] ([facility]) [address] [place] [address] 93093 Hematocrit (Bld) [Volume fraction] 39.4 % Normal 36.0-46.0 [facility] Comment on above: Performed By: #### 5 7021-8 #### TERESA YOON ([id number]) [facility] ([facility]) [address] [place] [address] 30698 Hemoglobin (Bld) [Mass/Vol] 13.3 g/dL Normal 12.0-16.0 [facility] Comment on above: Performed By: #### 5 7021-8 #### TERESA YOON ([id number]) [facility] ([facility]) [address] [place] [address]5974 Immature granulocytes (Bld) [#/Vol] 0.05 x10*3/uL Normal 0.00-0.70 [facility] Comment on above: Performed By: #### 5 7021-8 #### TERESA YOON ([id number]) [facility] ([facility]) [address] [place] [address]957 Immature granulocytes/100 WBC (Bld) 0.6 % Normal 0.0-0.9 [facility] Comment on above: Result Comment: Xiao ture Granulocyte Count (IG) includes promyelocytes, myelocytes and metamyelocytes but does not include bands. Percent differential counts (%) should be interpreted in the context of the absolute cell counts (cells/UL). Performed By: #### 5 7021-8 #### TERESA YOON ([id number]) [facility] ([facility]) [address] [place] [address] Lymphocytes (Bld) [#/Vol] 2.46 x10*3/uL Normal 1.20-4.80 [facility] Comment on above: Performed By: #### 7021-8 #### TERESA YOON ([id number]) [facility] ([facility]) [address] [place] [address] Lymphocytes/100 WBC (Bld) 28.3 % Normal 13.0-44.0 [facility] Comment on above: Performed By: #### 5 7021-8 #### TERESA YOON ([id number]) [facility] ([facility]) [address] [place] [address] MCH (RBC) [Entitic mass] 29.8 pg Normal 26.0-34.0 [facility] Comment on above: Performed By: #### 5 7021-8 #### TERESA YOON ([id number]) [facility] ([facility]) [address] [place] [address] MCHC (RBC) [Mass/Vol] 33.8 g/dL Normal 32.0-36.0 [facility] Comment on above: Performed By: #### 5 7021-8 #### TERESA YOON ([id number]) [facility] ([facility]) [address] [place] [address] MCV (RBC) [Entitic vol] 88 fL Normal 80-100 [facility] Comment on above: Performed By: #### 5 7021-8 #### TERESA YOON ([id number]) [facility] ([facility]) [address] [place] [address]25 Monocytes (Bld) [#/Vol] 0.52 x10*3/uL Normal 0.10-1.00 [facility] Comment on above: Performed By: #### 5 7021-8 #### TERESA YOON ([id number]) [facility] ([facility]) [address] [place] [address] 24175 Monocytes/100 WBC (Bld) 6.0 % Normal 2.0-10.0 [facility] Comment on above: Performed By: #### 5 7021-8 #### TERESA YOON ([id number]) [facility] ([facility]) [address] [place] [address]1307 Neutrophils (Bld) [#/Vol] 5.38 x10*3/uL Normal 1.20-7.70 [facility] Comment on above: Result Comment: Perc ent differential counts (%) should be interpreted in the context of the absolute cell counts (cells/uL). Performed By: #### 5 7021-8 #### TERESA YOON ([id number]) [facility] ([facility]) [address] [place] [address] 60423 Neutrophils/100 WBC (Bld) 61.8 % Normal 40.0-80.0 [facility] Comment on above: Performed By: #### 5 7021-8 #### TERESA YOON ([id number]) [facility] ([facility]) [address] [place] [address]17 Nucleated RBC/100 WBC (Bld) [Ratio] 0.0 /100 WBCs Normal 0.0-0.0 [facility] Comment on above: Performed By: #### 5 7021-8 #### TERESA YOON ([id number]) [facility] ([facility]) [address] [place] [address] 46484 Platelets (Bld) [#/Vol] 211 x10*3/uL Normal 150-450 [facility] Comment on above: Performed By: #### 5 7021-8 #### TERESA YOON ([id number]) [facility] ([facility]) [address] [place] [address] 01682 RBC (Bld) [#/Vol] 4.46 x10*6/uL Normal 4.00-5.20 [facility] Comment on above: Performed By: #### 5 7021-8 #### TERESA YOON ([id number]) [facility] ([facility]) [address] [place] [address] WBC (Bld) [#/Vol] 8.7 x10*3/uL Normal 4.4-11.3 [facility] Comment on above: Performed By: #### 5 7021-8 #### TERESA YOON ([id number]) [facility] ([facility]) [address] [place], [place] [address] Choriogonadotropin.beta subu niton 12-24-2023 [place] [address] m[IU]/mL High <5 U [facility] Comment on above: Order Comment: Total HCG measurement is performed using the Saw Harpreet Access Immunoassay which detects intact HCG and free beta HCG subunit. This test is not indicated for use as a tumor marker. HCG testing is performed using a different test methodology at [facility] than other [facility]. Direct result comparison should only be made within the same method. Result Comment: Low- level positive HCG results can be seen in early , in srinivas- or post-menopausal females due to normal pituitary HCG production, or with analytic interference. Repeat testing in 48-72 hours can aid in assessing for as results should double in this time period. FSH measurement is recommended in srinivas- or post-menopausal females as concurrent elevation of FSH can support pituitary production as the source of the HCG elevation. Performed By: #### 2 1198-7 #### TERESA YOON ([id number]) [facility] ([facility]) [address] [place], [place] [address] HCG.beta subunit Qnon 2023 Interpretation and review of laboratory results Abnormal [facility] Total HCG measuremen t is performed using the Saw Harpreet Access Immunoassay which detects intact HCG and free beta HCG subunit. This test is not indicated for use as a tumor marker. HCG testing is performed using a different test methodology at [facility] than other [facility]. Direct result comparison should only be made within the same method. [facility] US OB LESS THAN 14 WEEKS EAR Farrell 12-24-2023 US OB LESS THAN 14 WEEKS EARLY Interpreted By: Matthew Mendieta, STUDY: US OB LESS THAN 14 WEEKS EARLY; 12/24/2023 11:06 am INDICATION: Signs/Symptoms:vag bleed. COMPARISON: None ACCESSION NUMBER(S): [id number] ORDERING CLINICIAN: SEGUNDO LOPEZ TECHNIQUE: Grayscale images of the pelvis were obtained. FINDINGS: A single living intrauterine is identified. cardiac activity is noted. The heart rate is 137 BPM. The average ultrasound age is 6 weeks 4 days +/-3 days. The estimated date of delivery is 08/14/2024. There is a pole and yolk sac identified. Gestational sac is normal in size position and contour with a good decidual reaction noted. UTERUS: The uterus measures 9.3 x 5.8 x 6.7 cm. RIGHT OVARY: The right ovary measures 3.6 x 2.5 x 2.7 cm. There is a 3.4 cm cyst within the right ovary. LEFT OVARY: The left ovary measures 2.8 x 1.6 x 2.0 cm. Please note that the placenta is not identifiable as a discrete structure at this stage of gestation. The amount of amniotic fluid within the gestational sac is within normal limits. IMPRESSION: There is a single living intrauterine identified with an average ultrasound age of 6 weeks 4 days +/-3 days with an estimated date delivery of 08/14/2024. MACRO: none Signed by: Matthew Mendieta 12/24/2023 11:23 AM Dictation workstation: [id number] [facility] US for in first tr [facility] 12-24-2023 There is a single living intrauterine identified with an average ultrasound age of 6 weeks 4 days +/-3 days with an estimated date delivery of 08/14/2024. MACRO: none Signed by: Matthew Mendieta 12/24/2023 11:23 AM Dictation workstation: [id number] [facility] Interpreted By: Matthew Mendieta, STUDY: US OB LESS THAN 14 WEEKS EARLY; 12/24/2023 11:06 am INDICATION: Signs/Symptoms:vag bleed. COMPARISON: None ACCESSION NUMBER(S): [id number] ORDERING CLINICIAN: SEGUNDO LOPEZ TECHNIQUE: Grayscale images of the pelvis were obtained. FINDINGS: A single living intrauterine is identified. cardiac activity is noted. The heart rate is 137 BPM. The average ultrasound age is 6 weeks 4 days +/-3 days. The estimated date of delivery is 08/14/2024. There is a pole and yolk sac identified. Gestational sac is normal in size position and contour with a good decidual reaction noted. UTERUS: The uterus measures 9.3 x 5.8 x 6.7 cm. RIGHT OVARY: The right ovary measures 3.6 x 2.5 x 2.7 cm. There is a 3.4 cm cyst within the right ovary. LEFT OVARY: The left ovary measures 2.8 x 1.6 x 2.0 cm. Please note that the placenta is not identifiable as a discrete structure at this stage of gestation. The amount of amniotic fluid within the gestational sac is within normal limits. [facility] Matthew Mendieta MD - 12/24/2023 Interpreted By: Matthew Mendieta, STUDY: US OB LESS THAN 14 WEEKS EARLY; 12/24/2023 11:06 am INDICATION: Signs/Symptoms:vag bleed. COMPARISON: None ACCESSION NUMBER(S): [id number] ORDERING CLINICIAN: SEGUNDO LOPEZ TECHNIQUE: Grayscale images of the pelvis were obtained. FINDINGS: A single living intrauterine is identified. cardiac activity is noted. The heart rate is 137 BPM. The average ultrasound age is 6 weeks 4 days +/-3 days. The estimated date of delivery is 08/14/2024. There is a pole and yolk sac identified. Gestational sac is normal in size position and contour with a good decidual reaction noted. UTERUS: The uterus measures 9.3 x 5.8 x 6.7 cm. RIGHT OVARY: The right ovary measures 3.6 x 2.5 x 2.7 cm. There is a 3.4 cm cyst within the right ovary. LEFT OVARY: The left ovary measures 2.8 x 1.6 x 2.0 cm. Please note that the placenta is not identifiable as a discrete structure at this stage of gestation. The amount of amniotic fluid within the gestational sac is within normal limits. IMPRESSION: There is a single living intrauterine identified with an average ultrasound age of 6 weeks 4 days +/-3 days with an estimated date delivery of 08/14/2024. MACRO: none Signed by: Matthew Mendieta 12/24/2023 11:23 AM Dictation workstation: [id number] [facility] Work Phone: Radiology Study observation (narrative) [facility] Work Phone: US for in first tr imesterOrdered By: Matthew Mendieta on 12-24-2023 [facility] Work Phone: Urinalysis complete W Reflex Culture panel (U)on 12-24-2023 Appearance (U) Turbid Abnormal Clear [facility] Bacteria Auto (Urine sed) [#/Area] 4+ Abnormal NONE SEEN /HPF [facility] Bilirubin (U) [Mass/Vol] Negative NEGATIVE [facility] Color (U) Light-Yellow Light-Yellow, Yellow, Dark-Yellow [facility] Crystals.amorphous Computer assisted (U) [#/Area] 1+ NONE, 1+, 2+ /HPF [facility] Epithelial cells.squamous Auto (Urine sed) [#/Area] 26-50 (1+) Reference range not established. /HPF [facility] Glucose Auto test strip (U) [Mass/Vol] Normal Normal mg/dL [facility] Interpretation and review of laboratory results Abnormal [facility] Ketones (U) [Mass/Vol] Negative NEGATIVE mg/dL [facility] Leukocyte esterase Auto test strip Ql (U) Negative NEGATIVE [facility] Mucus Auto (Urine sed) [#/Area] FEW Reference range not established. /LPF [facility] Nitrite Auto test strip Ql (U) Negative NEGATIVE [facility] pH (U) 6 [pH] 5.0, 5.5, 6.0, 6.5, 7.0, 7.5, 8.0 [facility] Protein (U) [Mass/Vol] 10 (TRACE) NEGATIVE, 10 (TRACE), 20 (TRACE) mg/dL [facility] RBC (U) [#/Vol] Negative NEGATIVE [facility] RBC Auto (Urine sed) [#/Area] 1-2 NONE, 1-2, 3-5 /HPF [facility] Specific gravity (U) [Rel density] 1.017 1.005 - 1.035 [facility] Urobilinogen (U) [Mass/Vol] Normal Normal mg/dL [facility] WBC Auto (Urine sed) [#/Area] 1-5 1-5, NONE /HPF [facility] Appearance (U) Turbid Normal Clear [facility] Comment on above: Performed By: #### 5 8077-9 #### TERESA YOON ([id number]) [facility] ([facility]) [address] [place] [address] Bacteria Auto (Urine sed) [#/Area] 4+ /HPF Abnormal NONE SEEN [facility] Comment on above: Performed By: #### 5 8077-9 #### TERESA YOON ([id number]) [facility] ([facility]) [address] [place] [address] Bilirubin (U) [Mass/Vol] Negative Normal NEGATIVE [facility] Comment on above: Performed By: #### 5 8077-9 #### TERESA YOON ([id number]) [facility] ([facility]) [address] [place] [address] Color (U) Light-Yellow Normal Light-Yellow, Yellow, Dark-Yellow [facility] Comment on above: Performed By: #### 5 8077-9 #### TERESA YOON ([id number]) [facility] ([facility]) [address] [place] [address] Crystals.amorphous Computer assisted (U) [#/Area] 1+ /HPF Normal NONE, 1+, 2+ [facility] Comment on above: Performed By: #### 5 8077-9 #### TERESA YOON ([id number]) [facility] ([facility]) [address] [place] [address] Epithelial cells.squamous Auto (Urine sed) [#/Area] 26-50 (1+) Normal Reference range not established. [facility] Comment on above: Performed By: #### 5 8077-9 #### TERESA YOON ([id number]) [facility] ([facility]) [address] [place] [address] Glucose Auto test strip (U) [Mass/Vol] Normal Normal Normal [facility] Comment on above: Performed By: #### 5 8077-9 #### TERESA YOON ([id number]) [facility] ([facility]) [address] [place] [address] 34421 Ketones (U) [Mass/Vol] Negative Normal NEGATIVE [facility] Comment on above: Performed By: #### 5 8077-9 #### TERESA YOON ([id number]) [facility] ([facility]) [address] [place], [place] [address] Leukocyte esterase Auto test strip Ql (U) Negative Normal NEGATIVE [facility] Comment on above: Performed By: #### 5 8077-9 #### TERESA YOON ([id number]) [facility] ([facility]) [address] [place] [address] Mucus Auto (Urine sed) [#/Area] FEW Normal Reference range not established. [facility] Comment on above: Performed By: #### 5 8077-9 #### TERESA YOON ([id number]) [facility] ([facility]) [address] [place] [address] Nitrite Auto test strip Ql (U) Negative Normal NEGATIVE [facility] Comment on above: Performed By: #### 5 8077-9 #### TERESA YOON ([id number]) [facility] ([facility]) [address] [place] [address] 85581 pH (U) 6.0 [pH] Normal 5.0, 5.5, 6.0, 6.5, 7.0, 7.5, 8.0 [facility] Comment on above: Performed By: #### 5 8077-9 #### TERESA YOON ([id number]) [facility] ([facility]) [address] [place] [address] 08835 Protein (U) [Mass/Vol] 10 (TRACE) Normal NEGATIVE, 10 (TRACE), 20 (TRACE) [facility] Comment on above: Performed By: #### 5 8077-9 #### TERESA YOON ([id number]) [facility] ([facility]) [address] [place] [address] 24640 RBC (U) [#/Vol] Negative Normal NEGATIVE [facility] Comment on above: Performed By: #### 5 8077-9 #### TERESA YOON ([id number]) [facility] ([facility]) [address] [place] [address] RBC Auto (Urine sed) [#/Area] 1-2 Normal NONE, 1-2, 3-5 [facility] Comment on above: Performed By: #### 5 8077-9 #### TERESA YOON ([id number]) [facility] ([facility]) [address] [place] [address] Specific gravity (U) [Rel density] 1.017 Normal 1.005-1.035 [facility] Comment on above: Performed By: #### 5 8077-9 #### TERESA YOON ([id number]) [facility] ([facility]) [address] [place] [address] 49063 Urobilinogen (U) [Mass/Vol] Normal Normal Normal [facility] Comment on above: Performed By: #### 5 8077-9 #### TERESA YOON ([id number]) [facility] ([facility]) [address] [place] [address] 59775 WBC Auto (Urine sed) [#/Area] 1-5 Normal 1-5, NONE [facility] Comment on above: Performed By: #### 5 8077-9 #### TERESA YOON ([id number]) [facility] ([facility]) [address] [place] [address] hCG, quantitative, on 12-24-2023 [place] [address] m[IU]/mL High NINF [facility] Comment on above: Low-level positive H CG results can be seen in early , in srinivas- or post-menopausal females due to normal pituitary HCG production, or with analytic interference. Repeat testing in 48-72 hours can aid in assessing for as results should double in this time period. FSH measurement is recommended in srinivas- or post-menopausal females as concurrent elevation of FSH can support pituitary production as the source of the HCG elevation. B-HCG [facility] 4 HCG.beta subunit Qn 3732.0 m[IU]/mL High <5.0 [facility] Comment on above: Order Comment: Speci maria e Type: BLOOD SPECIMEN Ordering Facility: [facility] Address: [address] [place] [address] Result Comment: HARDEEP TITATIVE HCG NORMAL RANGES Weeks of Gestation (Weeks Since LMP) 3 Weeks (5.8-71.2 mIU/mL) 4 Weeks (9.5-750 mIU/mL) 5 Weeks (217-7138 mIU/mL) 6 Weeks (158-77350 mIU/mL) 7 Weeks (3697-237248 mIU/mL) 8 Weeks (59938-802876 mIU/mL) 9 Weeks (25628-823012 mIU/mL) 10 Weeks (03874-009187 mIU/mL) 12 Weeks (85291-468770 mIU/mL) Referenced to 4th IS of NIBS Performed By: #### 2 1198-7 #### [facility] CLIA [id number] [address] [place] [address] [place] B-HCG [facility] 4 HCG.beta subunit Qn 2128.0 m[IU]/mL High <5.0 [facility] Comment on above: Order Comment: Teodora sanderson Type: BLOOD SPECIMEN Ordering Facility: [facility] Address: [address] [place] [address] Result Comment: HARDEEP TITATIVE HCG NORMAL RANGES Weeks of Gestation (Weeks Since LMP) 3 Weeks (5.8-71.2 mIU/mL) 4 Weeks (9.5-750 mIU/mL) 5 Weeks (217-7138 mIU/mL) 6 Weeks (158-03662 mIU/mL) 7 Weeks (3697-870090 mIU/mL) 8 Weeks (01627-687423 mIU/mL) 9 Weeks (08056-253969 mIU/mL) 10 Weeks (86373-185798 mIU/mL) 12 Weeks (77060-412270 mIU/mL) Referenced to 4th IS of NIBSC Performed By: #### 2 1198-7 #### [facility] CLIA [id number] [address] [place] [address] [facility] Rox 12-12-2023 CNPN Telephone (OBGYWM) RICHARD SMITH ([id number]) 1995 F Date Time Provider Department 12/12/23 ELKIN MARTINEZ OBCARLOSWMoisés During your visit today, we recorded the following information about you: Allergies As of Date: 12/12/2023 Noted Allergy Reaction IMITREX (SUMATRIPTAN) 11/16/2010 14 - Other: See Comments Comments: Patient stated her jaw locked up and hurt really bad Date Reviewed: 12/07/2023 Reviewed by: Elkin Martinez APRN.[employer] - Fully Assessed Reason for Visit: Thyroid Problem [110] Primary Visit Diagnosis:Elevated TSH [R79.89] Order(s):levothyroxine (SYNTHROID) 88 mcg tabletTake 1 tablet by mouth daily before breakfast.Disp: 90 tabletRfl: 0 Prescriptions as of 12/13/2023 - levothyroxine (SYNTHROID) 88 mcg tablet Take 1 tablet by mouth daily before breakfast. - aspirin, enteric coated (ECOTRIN LOW STRENGTH) 81 mg EC tablet Take 1 tablet by mouth once daily. - vit no.124/iron/folic ( VITAMIN ORAL) Take by mouth. - cetirizine (ZYRTEC) 10 mg tablet Take 1 tablet by mouth once daily. - fluticasone (FLONASE) 50 mcg/actuation nasal spray Use 2 Sprays in each nostril once daily. Rinse mouth after use. Problem List As Of Date 12/12/2023 Noted Resolved Migraine variant [G43.809] 01/07/2013 12/07/2023 Seasonal allergies [J30.2] 12/07/2023 Papanicolaou smear of cervix with low grade squ*02/12/2015 Calculus of gallbladder without biliary obstruc*08/10/2019 08/14/2019 Cholelithiasis [K80.20] 08/13/2019 08/14/2019 Biliary colic [K80.50] 08/13/2019 08/14/2019 History of pre-eclampsia [Z87.59] 05/16/2017 Elevated glucose [R73.09] 09/01/2019 11/25/2019 Irregular periods/menstrual cycles [N92.6] 09/01/2019 11/23/2023 Abdominal wall pain [R10.9] 11/03/2019 06/16/2020 Gastroesophageal reflux disease [K21.9] 11/03/2019 12/07/2023 JORJE (generalized anxiety disorder) [F41.1] 11/25/2019 12/07/2023 COVID-19 virus infection [U07.1] 01/30/2020 12/07/2023 RUQ pain [R10.11] 06/16/2020 11/23/2023 Diarrhea [R19.7] 06/16/2020 11/23/2023 Elevated liver enzymes [R74.8] 06/16/2020 12/07/2023 Screening for ischemic heart disease [Z13.6] 06/05/2022 11/23/2023 Hypertriglyceridemia [E78.1] 06/05/2022 12/07/2023 Dyslipidemia (high LDL; low HDL) [E78.5] 06/05/2022 12/07/2023 Pure hypercholesterolemia [E78.00] 06/05/2022 12/07/2023 Family history of congenital anomaly [Z82.79] 12/07/2023 History of anxiety [Z86.59] 12/07/2023 Obesity affecting in first trimester *12/07/2023 Encounter for supervision of high risk pregnanc*12/07/2023 Inverted nipple [N64.59] 12/07/2023 History of miscarriage [Z87.59] 12/07/2023 PCOS (polycystic ovarian syndrome) [E28.2] 12/07/2023 with uncertain dates in first trimest*12/07/2023 Rubella non-immune status, antepartum [O09.899,*12/10/2023 Elevated TSH [R79.89] 12/10/2023 Prescriptions ordered this encounter Disp Refills Start End LEVOTHYROXINE 88 MCG TABLET 90 t* 0 12/12/2023 03/11/2024 Route: ORAL Sig: Take 1 tablet by mouth daily before breakfast. Encounter Status:Closed by ELKIN MARTINEZ on 12/13/[address] [facility] ([id number]) 1995 F Date Time Provider Department 12/12/23 MARIANA HILARIO During your visit today, we recorded the following information about you: Madalyn Copeland RDMS 12/12/2023 7:37 AM Signed May we please have Bilateral Diagnostic Mammogram orders placed per [facility] Breast imaging protocol. Only to be used at the discretion of the radiologist. Thank you very much! Mariana Deluna APRN.CNM 12/14/2023 10:06 AM Signed Mammogram ordered, patient is . Mariana Hilario APRN.CNM Allergies As of Date: 12/12/2023 Noted Allergy Reaction IMITREX (SUMATRIPTAN) 11/16/2010 14 - Other: See Comments Comments: Patient stated her jaw locked up and hurt really bad Date Reviewed: 12/07/2023 Reviewed by: Elkin Martinez APRN.[facility] - Fully Assessed Reason for Visit: Orders [681] Primary Visit Diagnosis:Inversion of both nipples [N64.59] Order(s):[facility]ATERAL [[id number]] Order #: [id number] FUTURE Prescriptions as of 12/14/2023 - levothyroxine (SYNTHROID) 88 mcg tablet Take 1 tablet by mouth daily before breakfast. - aspirin, enteric coated (ECOTRIN LOW STRENGTH) 81 mg EC tablet Take 1 tablet by mouth once daily. - vit no.124/iron/folic ( VITAMIN ORAL) Take by mouth. - cetirizine (ZYRTEC) 10 mg tablet Take 1 tablet by mouth once daily. - fluticasone (FLONASE) 50 mcg/actuation nasal spray Use 2 Sprays in each nostril once daily. Rinse mouth after use. Problem List As Of Date 12/12/2023 Noted Resolved Migraine variant [G43.809] 01/07/2013 12/07/2023 Seasonal allergies [J30.2] 12/07/2023 Papanicolaou smear of cervix with low grade squ*02/12/2015 Calculus of gallbladder without biliary obstruc*08/10/2019 08/14/2019 Cholelithiasis [K80.20] 08/13/2019 08/14/2019 Biliary colic [K80.50] 08/13/2019 08/14/2019 History of pre-eclampsia [Z87.59] 05/16/2017 Elevated glucose [R73.09] 09/01/2019 11/25/2019 Irregular periods/menstrual cycles [N92.6] 09/01/2019 11/23/2023 Abdominal wall pain [R10.9] 11/03/2019 06/16/2020 Gastroesophageal reflux disease [K21.9] 11/03/2019 12/07/2023 JORJE (generalized anxiety disorder) [F41.1] 11/25/2019 12/07/2023 COVID-19 virus infection [U07.1] 01/30/2020 12/07/2023 RUQ pain [R10.11] 06/16/2020 11/23/2023 Diarrhea [R19.7] 06/16/2020 11/23/2023 Elevated liver enzymes [R74.8] 06/16/2020 12/07/2023 Screening for ischemic heart disease [Z13.6] 06/05/2022 11/23/2023 Hypertriglyceridemia [E78.1] 06/05/2022 12/07/2023 Dyslipidemia (high LDL; low HDL) [E78.5] 06/05/2022 12/07/2023 Pure hypercholesterolemia [E78.00] 06/05/2022 12/07/2023 Family history of congenital anomaly [Z82.79] 12/07/2023 History of anxiety [Z86.59] 12/07/2023 Obesity affecting in first trimester *12/07/2023 Encounter for supervision of high risk pregnanc*12/07/2023 Inverted nipple [N64.59] 12/07/2023 History of miscarriage [Z87.59] 12/07/2023 PCOS (polycystic ovarian syndrome) [E28.2] 12/07/2023 with uncertain dates in first trimest*12/07/2023 Rubella non-immune status, antepartum [O09.899,*12/10/2023 Elevated TSH [R79.89] 12/10/2023 Encounter Status:Closed by JUANA TRAYLOR on 12/14/23 Normal [facility] Rox 12-11-2023 CNPN Telephone (OGFVWE) RICHARD SMITH ([id number]) 1995 F Date Time Provider Department 12/11/23 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 [facility] During your visit today, we recorded the following information about you: Rojelio Alcantar RN 12/11/2023 10:18 AM Signed 1st risk assessment form submitted 12/11/23 Allergies As of Date: 12/11/2023 Noted Allergy Reaction IMITREX (SUMATRIPTAN) 11/16/2010 14 - Other: See Comments Comments: Patient stated her jaw locked up and hurt really bad Date Reviewed: 12/07/2023 Reviewed by: Elkin Martinez APRN.[employer] - Fully Assessed Reason for Visit: PRAF [4193] Prescriptions as of 12/11/2023 - aspirin, enteric coated (ECOTRIN LOW STRENGTH) 81 mg EC tablet Take 1 tablet by mouth once daily. - vit no.124/iron/folic ( VITAMIN ORAL) Take by mouth. - cetirizine (ZYRTEC) 10 mg tablet Take 1 tablet by mouth once daily. - fluticasone (FLONASE) 50 mcg/actuation nasal spray Use 2 Sprays in each nostril once daily. Rinse mouth after use. Problem List As Of Date 12/11/2023 Noted Resolved Migraine variant [G43.809] 01/07/2013 12/07/2023 Seasonal allergies [J30.2] 12/07/2023 Papanicolaou smear of cervix with low grade squ*02/12/2015 Calculus of gallbladder without biliary obstruc*08/10/2019 08/14/2019 Cholelithiasis [K80.20] 08/13/2019 08/14/2019 Biliary colic [K80.50] 08/13/2019 08/14/2019 History of pre-eclampsia [Z87.59] 05/16/2017 Elevated glucose [R73.09] 09/01/2019 11/25/2019 Irregular periods/menstrual cycles [N92.6] 09/01/2019 11/23/2023 Abdominal wall pain [R10.9] 11/03/2019 06/16/2020 Gastroesophageal reflux disease [K21.9] 11/03/2019 12/07/2023 JORJE (generalized anxiety disorder) [F41.1] 11/25/2019 12/07/2023 COVID-19 virus infection [U07.1] 01/30/2020 12/07/2023 RUQ pain [R10.11] 06/16/2020 11/23/2023 Diarrhea [R19.7] 06/16/2020 11/23/2023 Elevated liver enzymes [R74.8] 06/16/2020 12/07/2023 Screening for ischemic heart disease [Z13.6] 06/05/2022 11/23/2023 Hypertriglyceridemia [E78.1] 06/05/2022 12/07/2023 Dyslipidemia (high LDL; low HDL) [E78.5] 06/05/2022 12/07/2023 Pure hypercholesterolemia [E78.00] 06/05/2022 12/07/2023 Family history of congenital anomaly [Z82.79] 12/07/2023 History of anxiety [Z86.59] 12/07/2023 Obesity affecting in first trimester *12/07/2023 Encounter for supervision of high risk pregnanc*12/07/2023 Inverted nipple [N64.59] 12/07/2023 History of miscarriage [Z87.59] 12/07/2023 PCOS (polycystic ovarian syndrome) [E28.2] 12/07/2023 with uncertain dates in first trimest*12/07/2023 Rubella non-immune status, antepartum [O09.899,*12/10/2023 Elevated TSH [R79.89] 12/10/2023 Encounter Status:Closed by ROJELIO ALCANTAR on 12/11/23 Normal [facility] B-HCG SerPl-aCncon 4 HCG.beta subunit Qn 1021.0 m[IU]/mL High <5.0 [facility] Comment on above: Order Comment: Speci men Type: BLOOD SPECIMEN Ordering Facility: [facility] Address: [address] [place] [address] Result Comment: HARDEEP TITATIVE HCG NORMAL RANGES Weeks of Gestation (Weeks Since LMP) 3 Weeks (5.8-71.2 mIU/mL) 4 Weeks (9.5-750 mIU/mL) 5 Weeks (217-7138 mIU/mL) 6 Weeks (158-33269 mIU/mL) 7 Weeks (3697-073274 mIU/mL) 8 Weeks (89953-277445 mIU/mL) 9 Weeks (83168-344510 mIU/mL) 10 Weeks (88937-843382 mIU/mL) 12 Weeks (62812-990549 mIU/mL) Referenced to 4th IS of [facility] Performed By: #### 2 1198-7 #### [facility] CLIA [id number] [address] [place] [address] [facility] Rox 12-10-2023 CNPN Telephone (OBGYWM) RICHARD SMITH ([id number]) 1995 F Date Time Provider Department 12/10/23 ELKIN MARTINEZ During your visit today, we recorded the following information about you: Elkin Martinez APRN.CNP 12/10/2023 7:19 AM Signed Please notify patient: TSH elevated, indicating thyroid problem. T4 ordered - please see if lab can add on. If not, please ask patient to have done. Endocrinology consult placed. Please assist in scheduling. NOEMY Junior Jennifer, RN 12/10/2023 8:55 AM Signed Spoke with lab client services. Having an issue with computer. Will call the office back on the direct line if patient needs a new sample. Patient notified. Inquired about her HCG level from 12/06. Not drawn. Patient has a lab appointment in [place] today at 10:00 AM (which was supposed to be her second quant). Patient is anxious about having a possible missed AB. Advised that we should have that result today. Transferred to schedule with endo. HAYDEN James Emily, APRN.CNP 12/10/2023 8:59 AM Signed Can have T4 drawn with [place] appt today if they can't add it on NOEMY Junior Jennifer, RN 12/10/2023 2:02 PM Signed hCG Quantitative, Blood Date Value 12/10/2023 1,021.0 mIU/mL Leave phone note open for 12/11 HCG. Jenise Walker RN 12/12/2023 3:47 PM Signed hCG Quantitative, Blood Date Value 12/12/2023 2,128.0 mIU/mL 12/10/2023 1,021.0 mIU/mL Provider notified patient in a [employer] message. Jenise Walker RN Allergies As of Date: 12/10/2023 Noted Allergy Reaction IMITREX (SUMATRIPTAN) 11/16/2010 14 - Other: See Comments Comments: Patient stated her jaw locked up and hurt really bad Date Reviewed: 12/07/2023 Reviewed by: Elkin Martinez APRN.CNP - Fully Assessed Reason for Visit: Results [95] Primary Visit Diagnosis:Elevated TSH [R79.89] Other Visit Diagnosis:7 weeks gestation of [Z3A.01] Order(s):CONSULT TO ENDOCRINOLOGY [9007] Order #: [id number]: 1 FUTURE T4 FREE/FREE THYROXINE [SQFT4] Order #: [id number] FUTURE Prescriptions as of 12/12/2023 - aspirin, enteric coated (ECOTRIN LOW STRENGTH) 81 mg EC tablet Take 1 tablet by mouth once daily. - vit no.124/iron/folic ( VITAMIN ORAL) Take by mouth. - cetirizine (ZYRTEC) 10 mg tablet Take 1 tablet by mouth once daily. - fluticasone (FLONASE) 50 mcg/actuation nasal spray Use 2 Sprays in each nostril once daily. Rinse mouth after use. Problem List As Of Date 12/10/2023 Noted Resolved Migraine variant [G43.809] 01/07/2013 12/07/2023 Seasonal allergies [J30.2] 12/07/2023 Papanicolaou smear of cervix with low grade squ*02/12/2015 Calculus of gallbladder without biliary obstruc*08/10/2019 08/14/2019 Cholelithiasis [K80.20] 08/13/2019 08/14/2019 Biliary colic [K80.50] 08/13/2019 08/14/2019 History of pre-eclampsia [Z87.59] 05/16/2017 Elevated glucose [R73.09] 09/01/2019 11/25/2019 Irregular periods/menstrual cycles [N92.6] 09/01/2019 11/23/2023 Abdominal wall pain [R10.9] 11/03/2019 06/16/2020 Gastroesophageal reflux disease [K21.9] 11/03/2019 12/07/2023 JORJE (generalized anxiety disorder) [F41.1] 11/25/2019 12/07/2023 COVID-19 virus infection [U07.1] 01/30/2020 12/07/2023 RUQ pain [R10.11] 06/16/2020 11/23/2023 Diarrhea [R19.7] 06/16/2020 11/23/2023 Elevated liver enzymes [R74.8] 06/16/2020 12/07/2023 Screening for ischemic heart disease [Z13.6] 06/05/2022 11/23/2023 Hypertriglyceridemia [E78.1] 06/05/2022 12/07/2023 Dyslipidemia (high LDL; low HDL) [E78.5] 06/05/2022 12/07/2023 Pure hypercholesterolemia [E78.00] 06/05/2022 12/07/2023 Family history of congenital anomaly [Z82.79] 12/07/2023 History of anxiety [Z86.59] 12/07/2023 Obesity affecting in first trimester *12/07/2023 Encounter for supervision of high risk pregnanc*12/07/2023 Inverted nipple [N64.59] 12/07/2023 History of miscarriage [Z87.59] 12/07/2023 PCOS (polycystic ovarian syndrome) [E28.2] 12/07/2023 with uncertain dates in first trimest*12/07/2023 Rubella non-immune status, antepartum [O09.899,*12/10/2023 Elevated TSH [R79.89] 12/10/2023 Encounter Status:Closed by JENISE WALKER on 12/12/23 Normal [facility] Free T4 [Mass/Vol]on Interpretation and review of laboratory results Normal [facility] T4 FREE/FREE THYROXINEon Free T4 [Mass/Vol] 0.9 ng/dL 0.9 - 1.7 ng/dL [facility] T4 Free SerPl-mCncon Free T4 [Mass/Vol] 0.9 ng/dL Normal 0.9-1.7 [facility] Comment on above: Order Comment: Speci men Type: BLOOD SPECIMEN Ordering Facility: [facility] Address: [address] [place] [address] Performed By: #### 3 024-7 #### [facility] CLIA [id number] [address] [place] [address] [place] Bacteria Ur Culton Bacteria identified Cx Nom (U) ORGANISM ID: 1 10,000 -<50,000 CFU/ml Normal urogenital osvaldo Normal [facility] Comment on above: Performed By: #### 6 30-4 ####[facility] [id number] [place] [address] [place] C. trachomatis+N. gonorrhoea e DNA MARK ANTHONY+probe Ql (Unsp spec)on 12-07-2023 C. trachomatis rRNA MARK ANTHONY+probe Ql (Unsp spec) Negative Normal Negative for Chlamydia trachomatis by amplificaton [facility] Comment on above: Order Comment: Speci men Type: SWABOrdering Facility: [facility] Address: [address] [place] [address] Performed By: #### 3 6902-5 ####[facility] [id number] [place] [address] [place] N. gonorrhoeae rRNA MARK ANTHONY+probe Ql (Unsp spec) Negative Normal Negative for Neisseria gonorrhoeae by amplification [facility] Comment on above: Order Comment: Speci men Type: SWABOrdering Facility: [facility] Address: [address] [place] [address] Performed By: #### 3 6902-5 ####[facility] [id number] [place] [address] [place] CARRIER SCREEN, STANDARDon 1 02-05-2023 CARRIER SCREEN RESULTS View results in Scanned Documents link when available. Normal [facility] Comment on above: Order Comment: Speci men Type: BLOOD SPECIMENOrdering Facility: [facility] Address: [address] [place] [address] Performed By: #### C RRSCN ####[facility] [id number] [place] [address] CBC W Auto Differential pane l (Bld)on 12-07-2023 Basophils (Bld) [#/Vol] 0.08 10*3/uL Normal <0.11 [facility] Comment on above: Order Comment: Speci men Type: URINE SPECIMEN Ordering Facility: [facility] Address: [address] [place] [address] Performed By: #### 2 890-2 #### [facility] CLIA [id number] [address] [place] [address] [place] Basophils/100 WBC (Bld) 0.7 % Normal [facility] Comment on above: Order Comment: Speci men Type: URINE SPECIMEN Ordering Facility: [facility] Address: [address] [place] [address] Performed By: #### 2 890-2 #### [facility] CLIA [id number] [address] [place] [address] [place] Differential cell count method Nom (Bld) Auto Normal [facility] Comment on above: Order Comment: Speci men Type: URINE SPECIMEN Ordering Facility: [facility] Address: [address] [place] [address] Performed By: #### 2 890-2 #### [facility] CLIA [id number] [address] [place] [address] [place] Eosinophils (Bld) [#/Vol] 0.53 10*3/uL High <0.46 [facility] Comment on above: Order Comment: Speci men Type: URINE SPECIMEN Ordering Facility: [facility] Address: [address] [place] [address] Performed By: #### 2 890-2 #### [facility] CLIA [id number] [address] [place] [address] [place] Eosinophils/100 WBC (Bld) 4.4 % Normal [facility] Comment on above: Order Comment: Speci men Type: URINE SPECIMEN Ordering Facility: [facility] Address: [address] [place] [address] Performed By: #### 2 890-2 #### [facility] CLIA [id number] [address] [place] [address] [place] Erythrocyte distribution width (RBC) [Ratio] 12.5 % Normal 11.5-15.0 [facility] Comment on above: Order Comment: Speci men Type: URINE SPECIMEN Ordering Facility: [facility] Address: [address] [place] [address] Performed By: #### 2 890-2 #### [facility] CLIA [id number] [address] [place] [address] [place] Hematocrit (Bld) [Volume fraction] 39.8 % Normal 36.0-46.0 [facility] Comment on above: Order Comment: Speci men Type: URINE SPECIMEN Ordering Facility: [facility] Address: [address] [place] [address] Performed By: #### 2 890-2 #### [facility] CLIA [id number] [address] [place] [address] [place] Hemoglobin (Bld) [Mass/Vol] 13.6 g/dL Normal 11.5-15.5 [facility] Comment on above: Order Comment: Speci men Type: URINE SPECIMEN Ordering Facility: [facility] Address: [address] [place] [address] Performed By: #### 2 890-2 #### [facility] CLIA [id number] [address] [place] [address] [place] Immature granulocytes (Bld) [#/Vol] 0.06 10*3/uL Normal <0.10 [facility] Comment on above: Order Comment: Speci men Type: URINE SPECIMEN Ordering Facility: [facility] Address: [address] [place] [address] Performed By: #### 2 890-2 #### [facility] CLIA [id number] [address] [place] [address] [place] Immature granulocytes/100 WBC (Bld) 0.5 % Normal [facility] Comment on above: Order Comment: Speci men Type: URINE SPECIMEN Ordering Facility: [facility] Address: [address] [place] [address] Performed By: #### 2 890-2 #### [facility] CLIA [id number] [address] [place] [address] [place] Lymphocytes (Bld) [#/Vol] 3.86 10*3/uL Normal 1.00-4.00 [facility] Comment on above: Order Comment: Speci men Type: URINE SPECIMEN Ordering Facility: [facility] Address: [address] [place] [address] Performed By: #### 2 890-2 #### [facility] CLIA [id number] [address] [place] [address] [place] Lymphocytes/100 WBC (Bld) 31.9 % Normal [facility] Comment on above: Order Comment: Speci men Type: URINE SPECIMEN Ordering Facility: [facility] Address: [address] [place] [address] Performed By: #### 2 890-2 #### [facility] CLIA [id number] [address] [place] [address] [place] MCH (RBC) [Entitic mass] 29.7 pg Normal 26.0-34.0 [facility] Comment on above: Order Comment: Speci men Type: URINE SPECIMEN Ordering Facility: [facility] Address: [address] [place] [address] Performed By: #### 2 890-2 #### [facility] CLIA [id number] [address] [place] [address] [place] MCHC (RBC) [Mass/Vol] 34.2 g/dL Normal 30.5-36.0 [facility] Comment on above: Order Comment: Speci men Type: URINE SPECIMEN Ordering Facility: [facility] Address: [address] [place] [address] Performed By: #### 2 890-2 #### [facility] CLIA [id number] [address] [place] [address] [place] MCV (RBC) [Entitic vol] 86.9 fL Normal 80.0-100.0 [facility] Comment on above: Order Comment: Speci men Type: URINE SPECIMEN Ordering Facility: [facility] Address: [address] [place] [address] Performed By: #### 2 890-2 #### [facility] CLIA [id number] [address] [place] [address] [place] Monocytes (Bld) [#/Vol] 0.74 10*3/uL Normal <0.87 [facility] Comment on above: Order Comment: Speci men Type: URINE SPECIMEN Ordering Facility: [facility] Address: [address] [place] [address] Performed By: #### 2 890-2 #### [facility] CLIA [id number] [address] [place] [address] [place] Monocytes/100 WBC (Bld) 6.1 % Normal [facility] Comment on above: Order Comment: Speci men Type: URINE SPECIMEN Ordering Facility: [facility] Address: [address] [place] [address] Performed By: #### 2 890-2 #### [facility] CLIA [id number] [address] [place] [address] [place] Neutrophils (Bld) [#/Vol] 6.84 10*3/uL Normal 1.45-7.50 [facility] Comment on above: Order Comment: Speci men Type: URINE SPECIMEN Ordering Facility: [facility] Address: [address] [place] [address] Performed By: #### 2 890-2 #### [facility] CLIA [id number] [address] [place] [address] [place] Neutrophils/100 WBC (Bld) 56.4 % Normal [facility] Comment on above: Order Comment: Speci men Type: URINE SPECIMEN Ordering Facility: [facility] Address: [address] [place] [address] Performed By: #### 2 890-2 #### [facility] CLIA [id number] [address] [place] [address] [place] Nucleated RBC (Bld) [#/Vol] 10*3/uL Normal <0.01 [facility] Comment on above: Order Comment: Speci men Type: URINE SPECIMEN Ordering Facility: [facility] Address: [address] [place] [address] Performed By: #### 2 890-2 #### [facility] CLIA [id number] [address] [place] [address] [place] Nucleated RBC/100 WBC (Bld) [Ratio] 0.0 /100 WBC Normal [facility] Comment on above: Order Comment: Speci men Type: URINE SPECIMEN Ordering Facility: [facility] Address: [address] [place] [address] Performed By: #### 2 890-2 #### [facility] CLIA [id number] [address] [place] [address] [place] Platelet mean volume (Bld) [Entitic vol] 10.6 fL Normal 9.0-12.7 [facility] Comment on above: Order Comment: Speci men Type: URINE SPECIMEN Ordering Facility: [facility] Address: [address] [place] [address] Performed By: #### 2 890-2 #### [facility] CLIA [id number] [address] [place] [address] [place] Platelets (Bld) [#/Vol] 260 10*3/uL Normal 150-400 [facility] Comment on above: Order Comment: Speci men Type: URINE SPECIMEN Ordering Facility: [facility] Address: [address] [place] [address] Performed By: #### 2 890-2 #### [facility] CLIA [id number] [address] [place] [address] [place] RBC (Bld) [#/Vol] 4.58 10*6/uL Normal 3.90-5.20 [facility] Comment on above: Order Comment: Speci men Type: URINE SPECIMEN Ordering Facility: [facility] Address: [address] [place] [address] Performed By: #### 2 890-2 #### [facility] CLIA [id number] [address] [place] [address] [place] WBC (Bld) [#/Vol] 12.11 10*3/uL High 3.70-11.00 [facility] Comment on above: Order Comment: Speci men Type: URINE SPECIMEN Ordering Facility: [facility] Address: [address] [place] [address] Performed By: #### 2 890-2 #### [facility] CLIA [id number] [address] [place] [address] [place] Comprehensive metabolic 2000 panelOrdered By: Annita Lewis on 12-07-2023 Albumin [Mass/Vol] 4.1 g/dL 3.9 - 4.9 g/dL [facility] ALP [Catalytic activity/Vol] 87 U/L 34 - 123 U/L [facility] ALT [Catalytic activity/Vol] 10 U/L 7 - 38 U/L [facility] Anion gap [Moles/Vol] 11 mmol/L 8 - 15 mmol/L [facility] AST [Catalytic activity/Vol] 11 U/L Low 13 - 35 U/L [facility] Bilirubin [Mass/Vol] 0.2 mg/dL 0.2 - 1 .3 mg/dL [facility] Calcium [Mass/Vol] 9.0 mg/dL 8.5 - 10. 2 mg/dL [facility] Chloride [Moles/Vol] 104 mmol/L 98 - 10 7 mmol/L [facility] CO2 [Moles/Vol] 22 mmol/L 22 - 30 mmol/L [facility] Creatinine [Mass/Vol] 0.79 mg/dL 0.58 - 0.96 mg/dL [facility] GFR/1.73 sq M.predicted among non-blacks MDRD (S/P/Bld) [Vol rate/Area] 103 mL/min/{1.73_m2} - PINF [facility] Comment on above: Estimated Glomerular Filtration Rate (eGFR) is calculated using the 2020 CKD-EPI creatinine equation. This equation utilizes serum creatinine, sex, and age as parameters. The creatinine assay has traceable calibration to isotope dilution-mass spectrometry. Refer to KDIGO guidelines for clinical interpretation. In patients with unstable renal function, e.g. those with acute kidney injury, the eGFR may not accurately reflect actual GFR. Glucose [Mass/Vol] 98 mg/dL 74 - 99 mg/dL [facility] Comment on above: The [place] Diabete s Association (ADA) provides guidance for cutoff values for fasting glucose and random glucose. The ADA defines fasting as no caloric intake for at least 8 hours. Fasting plasma glucose results between 100 to 125 mg/dL indicate increased risk for diabetes (prediabetes). Fasting plasma glucose results greater than or equal to 126 mg/dL meet the criteria for diagnosis of diabetes. In the absence of unequivocal hyperglycemia, results should be confirmed by repeat testing. In a patient with classic symptoms of hyperglycemia or hyperglycemic crisis, random plasma glucose results greater than or equal to 200 mg/dL meet the criteria for diagnosis of diabetes. Reference: Standards of Medical Care in Diabetes 2016, [place] Diabetes Association. Diabetes Care. 2016.39(Suppl 1). Interpretation and review of laboratory results Abnormal [facility] Potassium [Moles/Vol] 3.8 mmol/L 3.7 - 5.1 mmol/L [facility] Protein [Mass/Vol] 6.9 g/dL 6.3 - 8.0 g/dL [facility] Sodium [Moles/Vol] 137 mmol/L 136 - 144 mmol/L [facility] Urea nitrogen [Mass/Vol] 13 mg/dL 7 - 21 mg/dL [facility] Comprehensive metabolic 2000 panelon 12-07-2023 Albumin [Mass/Vol] 4.1 g/dL Normal 3.9-4.9 [facility] Comment on above: Order Comment: Speci men Type: BLOOD SPECIMENOrdering Facility: [facility] Address: [address] [place] [address] Performed By: #### 2 4323-8 ####[facility] CENTERSegundo [id number] [place] [address] [place] ALP [Catalytic activity/Vol] 87 U/L Normal 34-123 [facility] Comment on above: Order Comment: Speci men Type: BLOOD SPECIMENOrdering Facility: [facility] Address: [address] [place] [address] Performed By: #### 2 4323-8 ####[facility] PARKWAYNCLIA [id number] [place] [address] [place] ALT [Catalytic activity/Vol] 10 U/L Normal 7-38 [facility] Comment on above: Order Comment: Speci men Type: BLOOD SPECIMENOrdering Facility: [facility] Address: [address] [place] [address] Performed By: #### 2 4323-8 ####[facility] PARKWAYNCLIA [id number] [place] [address] [place] Anion gap [Moles/Vol] 11 mmol/L Normal 8-15 [facility] Comment on above: Order Comment: Speci men Type: BLOOD SPECIMENOrdering Facility: [facility] Address: [address] [place] [address] Performed By: #### 2 4323-8 ####[facility] PARKWAYNCLIA [id number] [place] [address] [place] AST [Catalytic activity/Vol] 11 U/L Low 13-35 [facility] Comment on above: Order Comment: Speci men Type: BLOOD SPECIMENOrdering Facility: [facility] Address: [address] [place] [address] Performed By: #### 2 4323-8 ####[facility] PARKWAYNCLIA [id number] [place] [address] [place] Bilirubin [Mass/Vol] 0.2 mg/dL Normal 0.2-1.3 [facility] Comment on above: Order Comment: Speci men Type: BLOOD SPECIMENOrdering Facility: [facility] Address: [address] [place] [address] Performed By: #### 2 4323-8 ####[facility] SY[facility]IA MILLTOWNCLIA [id number] [place] [address] [place] Calcium [Mass/Vol] 9.0 mg/dL Normal 8.5-10.2 [facility] Comment on above: Order Comment: Speci men Type: BLOOD SPECIMENOrdering Facility: [facility] Address: [address] [place] [address] Performed By: #### 2 4323-8 ####[facility] MILLTOWNCLIA [id number] [place] [address] [place] Chloride [Moles/Vol] 104 mmol/L Normal 98-107 [facility] Comment on above: Order Comment: Speci men Type: BLOOD SPECIMENOrdering Facility: [facility] Address: [address] [place] [address] Performed By: #### 2 4323-8 ####[facility] MILLWOODYWNCLIA [id number] [place] [address] [place] CO2 [Moles/Vol] 22 mmol/L Normal 22-30 [facility] Comment on above: Order Comment: Speci men Type: BLOOD SPECIMENOrdering Facility: [facility] Address: [address] [place] [address] Performed By: #### 2 4323-8 ####[facility] MILLTOWNCLIA [id number] [place] [address] [place] Creatinine [Mass/Vol] 0.79 mg/dL Normal 0.58-0.96 [facility] Comment on above: Order Comment: Speci men Type: BLOOD SPECIMENOrdering Facility: [facility] Address: [address] [place] [address] Performed By: #### 2 4323-8 ####[facility] [id number] [place] [address] [place] Creatinine and Glomerular filtration rate.predicted panel (S/P/Bld) 103 mL/min/1.73m??? Normal >=60 [facility] Comment on above: Order Comment: Teodora sanderson Type: BLOOD SPECIMENOrdering Facility: [facility] Address: [address] [place] [address] Result Comment: Tanya mated Glomerular Filtration Rate (eGFR) is calculated using the 2020 CKD-EPI creatinine equation. This equation utilizes serum creatinine, sex, and age as parameters. The creatinine assay has traceable calibration to isotope dilution-mass spectrometry. Refer to KDIGO guidelines for clinical interpretation. In patients with unstable renal function, e.g. those with acute kidney injury, the eGFR may not accurately reflect actual GFR. Performed By: #### 2 4323-8 ####[facility] [id number] [place] [address] [place] Glucose [Mass/Vol] 98 mg/dL Normal 74-99 [facility] Comment on above: Order Comment: Teodora sanderson Type: BLOOD SPECIMENOrdering Facility: [facility] Address: [address] [place] [address] Result Comment: The Italian Diabetes Association (ADA) provides guidance for cutoff values for fasting glucose and random glucose. The ADA defines fasting as no caloric intake for at least 8 hours. Fasting plasma glucose results between 100 to 125 mg/dL indicate increased risk for diabetes (prediabetes). Fasting plasma glucose results greater than or equal to 126 mg/dL meet the criteria for diagnosis of diabetes. In the absence of unequivocal hyperglycemia, results should be confirmed by repeat testing. In a patient with classic symptoms of hyperglycemia or hyperglycemic crisis, random plasma glucose results greater than or equal to 200 mg/dL meet the criteria for diagnosis of diabetes. Reference: Standards of Medical Care in Diabetes 2016, Italian Diabetes Association. Diabetes Care. 2016.39(Suppl 1). Performed By: #### 2 4323-8 ####[facility] [id number] [place] [address] [place] Potassium [Moles/Vol] 3.8 mmol/L Normal 3.7-5.1 [facility] Comment on above: Order Comment: Speci men Type: BLOOD SPECIMENOrdering Facility: [facility] Address: [address] [place] [address] Performed By: #### 2 4323-8 ####[facility] [id number] [place] [address] [place] Protein [Mass/Vol] 6.9 g/dL Normal 6.3-8.0 [facility] Comment on above: Order Comment: Speci men Type: BLOOD SPECIMENOrdering Facility: [facility] Address: [address] [place] [address] Performed By: #### 2 4323-8 ####[facility] [id number] [place] [address] [place] Sodium [Moles/Vol] 137 mmol/L Normal 136-144 [facility] Comment on above: Order Comment: Speci men Type: BLOOD SPECIMENOrdering Facility: [facility] Address: [address] [place] [address] Performed By: #### 2 4323-8 ####[facility] [id number] [place] [address] [place] Urea nitrogen [Mass/Vol] 13 mg/dL Normal 7-21 [facility] Comment on above: Order Comment: Speci men Type: BLOOD SPECIMENOrdering Facility: [facility] Address: [address] [place] [address] Performed By: #### 2 4323-8 ####[facility] [id number] [place] [address] [place] HBV surface Ag Ser Qlon 11-0 HBV surface Ag Ql (S) Negative Normal Negative [facility] Comment on above: Order Comment: Speci men Type: BLOOD SPECIMENOrdering Facility: [facility] Address: [address] [place] [address] Performed By: #### 3 1201-7, 5-3, 99503-2 ####[facility] [id number] [place] [address] [place] HCV Ab Ser Qlon 12-07-2023 HCV Ab Ql (S) Negative Normal Negative [facility] Comment on above: Order Comment: Speci men Type: BLOOD SPECIMENOrdering Facility: [facility] Address: [address] [place] [address] Result Comment: The result suggests no evidence of active infection with Hepatitis C virus. Should recent infection be suspected, repeat testing may be considered 4-6 weeks after this draw. Performed By: #### 1 6128-1 ####[facility] [id number] [place] [address] [place] HIV 1+2 Ab IA Qlon 4 HIV 1 and 2 Ab IA.rapid Nom (S/P/Bld) Normal [facility] Comment on above: Order Comment: Speci men Type: BLOOD SPECIMENOrdering Facility: [facility] Address: [address] [place] [address] Result Comment: Test not indicated. Performed By: #### 3 1201-7, 5195-3, 10813-5 ####[facility] [id number] [place] [address] [place] HIV 1+2 Ab+HIV1 p24 Ag IA Ql Non-Reactive Normal Nonreactive [facility] Comment on above: Order Comment: Speci men Type: BLOOD SPECIMENOrdering Facility: [facility] Address: [address] [place] [address] Performed By: #### 3 1201-7, 5195-3, 43930-4 ####[facility] [id number] [place] [address] [place] HIV immunoassay testing algorithm interpretation (S/P/Bld) [Interp] Normal [facility] Comment on above: Order Comment: Speci men Type: BLOOD SPECIMENOrdering Facility: [facility] Address: [address] [place] [address] Result Comment: No e vidence of HIV-1 or HIV-2 infection. Should recent infection be suspected, repeat testing may be considered 2-3 weeks after this draw. [place] Rev. Code 3701.243(E): This information has been disclosed to you from confidential records protected from disclosure by state law. ???You shall make no further disclosure of this information without the specific, written, and informed release of the individual to whom it pertains or as otherwise permitted by state law. A general authorization for the release of medical or other information is not sufficient for the purpose of the release of HIV test results or diagnoses. Performed By: #### 3 1201-7, 5195-3, 54939-0 ####[facility] [id number] [place] [address] [place] HbA1c (Bld)on 12-07-2023 Average glucose Estimated from glycated hemoglobin (Bld) [Mass/Vol] 91 mg/dL Normal [facility] Comment on above: Order Comment: Macki men Type: BLOOD SPECIMENOrdering Facility: [facility] Address: [address] [place] [address] Result Comment: eAG: (Estimated average glucose) is a calculated value from HgbA1c and is patient representative of the average blood glucose level in the last 2-3 month period. Performed By: #### 5 5454-3 ####[facility] [id number] [place] [address] [place] HbA1c (Bld) [Mass fraction] 4.8 % Normal 4.3-5.6 [facility] Comment on above: Order Comment: Teodora sanderson Type: BLOOD SPECIMENOrdering Facility: [facility] Address: [address] [place] [address] Result Comment: Amer [place] Diabetes Association guidelines indicate that patients with HgbA1c in the range 5.7-6.4% are at increased risk for development of diabetes, and intervention by lifestyle modification may be beneficial. HgbA1c greater or equal to 6.5% is considered diagnostic of diabetes. Performed By: #### 5 5454-3 ####[facility] [id number] [facility] [id number] [address] [place] POC PERMANENT MOLD SUPERVISOR ULTRASOUNDon 12-07-19 24 Indication Viability; confirm cardiac activity Impression Gestational sac not visualized, likely due to early gestation. Recommendations Follow up for repeat ultrasound in 2 weeks to confirm viability. Trend serial quants. Method Transabdominal ultrasound examination. Transvaginal ultrasound examination. View: Adequate visualization Estrada . Number of embryos: 1 Dating LMP on: 10/16/2023 GA by LMP 7 w + 3 d MARYJANE by LMP: 07/22/2024 Ultrasound examination on: 12/07/2023 GA by U/S based upon: GS GA by U/S 7 w + 3 d MARYJANE by U/S: 07/22/2024 Assigned: based on the LMP, selected on 12/07/2023 Assigned GA 7 w + 3 d Assigned MARYJANE: 07/22/2024 Biometry Extended GS 26.9 mm 7w 3d 51% Naldo Assessment Gestational sac: not visualized GS 26.9 mm 7w 3d 51% Naldo Location: too early to be determined Performed By: Elkin Martinez NP Read By: Elkin Martinez NP MATERNAL MEDICINE [facility] Radiology Study observation (narrative) [facility] Prot/Creat Uron 12-07-2023 Protein/Creatinine (U) [Mass ratio] 0.05 mg/mg Normal <0.15 [facility] Comment on above: Order Comment: Speci men Type: URINE SPECIMEN Ordering Facility: [facility] Address: [address] [place] [address] Result Comment: Adul t Proteinuria Categories: <0.15 mg/mg is considered normal to mildly increased 0.15 - 0.50 mg/mg is considered moderately increased >0.50 mg/mg is considered severely increased KDIGO. (2013). KDIGO 2012 Clinical Practice Guideline for the Evaluation and Management of Chronic Kidney Disease. Official Journal of the International Society of Nephrology, 3(1), 1-150. Performed By: #### 2 890-2 #### [facility] CLIA [id number] [address] [place] [address] [place] Protein/Creatinine (U) [Mass ratio]on 12-07-2023 Creatinine (U) [Mass/Vol] 161.9 mg/dL Normal 20.0-300.0 [facility] Comment on above: Order Comment: Speci men Type: URINE SPECIMEN Ordering Facility: [facility] Address: [address] [place] [address] Performed By: #### 2 890-2 #### [facility] CLIA [id number] [address] [place] [address] [place] Protein (U) [Mass/Vol] 8 mg/dL Normal 0-20 [facility] Comment on above: Order Comment: Speci men Type: URINE SPECIMEN Ordering Facility: [facility] Address: [address] [place] [address] Performed By: #### 2 890-2 #### [facility] CLIA [id number] [address] [place] [address] [place] RUBELLA IGG ANTIBODYon 12-06 RUBELLA IGG AB, QUAL Equivocal Abnormal Positive [facility] Comment on above: Order Comment: Speci men Type: BLOOD SPECIMENOrdering Facility: [facility] Address: [address] [place] [address] Result Comment: The result suggests no history of Rubella vaccination or exposure to Rubella virus, however, some individuals with past history of Rubella vaccination may test negative using this test as immunity to Rubella virus wanes over time after vaccination. Please correlate with vaccination history if applicable. Performed By: #### R UBIGG ####[facility] [id number] [place] [address] [place] Reagin and Treponema pallidu m IgG and IgM [Interp]on 12-07-2023 T. pallidum IgG+IgM IA Ql (S) Non-Reactive Normal Nonreactive [facility] Comment on above: Order Comment: Teodora sanderson Type: BLOOD SPECIMENOrdering Facility: [facility] Address: [address] [place] [address] Performed By: #### 3 1201-7, 5195-3, 55621-2 ####[facility] [id number] [place] [id number] [place] Reagin+T pallidum IgG+IgM Se rPl-Impon 12-07-2023 Reagin and Treponema pallidum IgG and IgM [Interp] Cannot exclude recent Treponemal infection if specimen collected within 7-10 days after appearance of suspect lesions or 2-3 weeks after an exposure. Clinical correlation is required. Normal [facility] Comment on above: Order Comment: Teodora sanderson Type: BLOOD SPECIMENOrdering Facility: [facility] Address: [address] [place] [address] Performed By: #### 3 1201-7, 5195-3, 65537-2 ####[facility] [id number] [place] [id number] [place] TSH SerPl-aCncon 12-07-2023 TSH Qn 6.120 m[IU]/L High 0.270-4.200 [facility] Comment on above: Order Comment: Teodora sanderson Type: BLOOD SPECIMENOrdering Facility: [facility] Address: [address] [place] [address] Result Comment: If t he patient is , TSH reference range varies by gestational period: First Trimester (weeks 9-12): 0.180-2.990 mIU/L Second Trimester: 0.110-3.980 mIU/L Third Trimester: 0.480-4.710 mIU/L Loki Montero et al. A Practical Approach for the Verifications and Determination of Site- and Trimester-Specific Reference Intervals for Thyroid Function tests in . Thyroid, 2019:29:3:412-420. Clifford Lock, et al. 2017 Guidelines of the [place] Thyroid Association for the Diagnosis and Management of Thyroid Disease during and the . Thyroid, 2017:27:3:315-389. Performed By: #### 3 016-3 ####[facility] [id number] [place] [address] [place] TYPE + SCREEN PRENATALon ABO A Normal [facility] Comment on above: Order Comment: Speci men Type: URINE SPECIMEN Ordering Facility: [facility] Address: [address] [place] [address] Performed By: #### 2 890-2 #### [facility] CLIA [id number] [address] [place] [address] [place] Rh Nom (Bld) Positive Normal [facility] Comment on above: Order Comment: Speci men Type: URINE SPECIMEN Ordering Facility: [facility] Address: [address] [place] [address] Performed By: #### 2 890-2 #### [facility] CLIA [id number] [address] [place] [address] [place] TYPE AND SCREEN EXPIRATION 12/10/2023 23:59 Normal [facility] Comment on above: Order Comment: Speci men Type: URINE SPECIMEN Ordering Facility: [facility] Address: [address] [place] [address] Performed By: #### 2 890-2 #### [facility] CLIA [id number] [address] [place] [address] [place] CNPChiquita 12-04-2023 CNPN Telephone (GURMEETGY) RICHARD SMITH ([id number]) 1995 F Date Time Provider Department 12/04/23 HAURY, ELKIN OBGYWM During your visit today, we recorded the following information about you: Rita David RN 12/04/2023 9:03 AM Signed Left message for patient to return phone call to complete nurse intake questions for her upcoming appointment. Patient has an appointment with Elkin Martinez for NOB appointment on . Please transfer to me or Jenise Lindsey RN 12/04/2023 9:08 AM Signed Patient available at 10:30 today. Jenise Walker RN Allergies As of Date: 12/04/2023 Noted Allergy Reaction IMITREX (SUMATRIPTAN) 11/16/2010 14 - Other: See Comments Comments: Patient stated her jaw locked up and hurt really bad Date Reviewed: 11/23/2023 Reviewed by: Alan Haynes MA - Fully Assessed Reason for Visit: Appointment [186] Prescriptions as of 12/04/2023 - Drospirenone-Ethinyl Estradiol (LESLIE 28) 3-0.02 mg per tablet Take 1 tablet by mouth once daily for 28 days. - Phentermine HCl 37.5 mg tablet Take 1/2 tablet daily in the morning. BMI 32.95 - topiramate (TOPAMAX) 25 mg tablet Take 1 tablet daily and in one week increase 2 tablets daily - cetirizine (ZYRTEC) 10 mg tablet Take 1 tablet by mouth once daily. - fluticasone (FLONASE) 50 mcg/actuation nasal spray Use 2 Sprays in each nostril once daily. Rinse mouth after use. Problem List As Of Date 12/04/2023 Noted Resolved Migraine variant [G43.809] 01/07/2013 Seasonal allergies [J30.2] Papanicolaou smear of cervix with low grade squ*02/12/2015 Calculus of gallbladder without biliary obstruc*08/10/2019 08/14/2019 Cholelithiasis [K80.20] 08/13/2019 08/14/2019 Biliary colic [K80.50] 08/13/2019 08/14/2019 BMI 32.0-32.9,adult [Z68.32] 03/29/2018 History of pre-eclampsia [Z87.59] 05/16/2017 Elevated glucose [R73.09] 09/01/2019 11/25/2019 Irregular periods/menstrual cycles [N92.6] 09/01/2019 11/23/2023 Abdominal wall pain [R10.9] 11/03/2019 06/16/2020 Gastroesophageal reflux disease [K21.9] 11/03/2019 JORJE (generalized anxiety disorder) [F41.1] 11/25/2019 COVID-19 virus infection [U07.1] 01/30/2020 RUQ pain [R10.11] 06/16/2020 11/23/2023 Diarrhea [R19.7] 06/16/2020 11/23/2023 Elevated liver enzymes [R74.8] 06/16/2020 Obesity, Class II, BMI 35-39.9 [E66.812] 04/05/2021 Screening for ischemic heart disease [Z13.6] 06/05/2022 11/23/2023 Hypertriglyceridemia [E78.1] 06/05/2022 Dyslipidemia (high LDL; low HDL) [E78.5] 06/05/2022 Pure hypercholesterolemia [E78.00] 06/05/2022 Encounter Status:Closed by JENISE WALKER on 12/04/23 Normal [facility] BACTERIAL VAGINOSIS NAATon 1 Lactobacillus crispatus+gasseri+mary senii + Gardnerella vaginalis + Atopobium vaginae rRNA MARK ANTHONY+probe Ql (Vag fld) Negative Normal Negative for bacterial vaginosis [facility] Comment on above: Order Comment: Speci men Type: SWABOrdering Facility: [facility] Address: [address] [place] [address] Performed By: #### C VTV, BVAMP ####[facility] [id number] [facility] [place] [address] [place] DARYA/TRICHOMONAS NAATon 1 C. glabrata RNA MARK ANTHONY+probe Ql (Vag fld) Negative Normal Negative for Darya glabrata [facility] Comment on above: Order Comment: Speci men Type: SWABOrdering Facility: [facility] Address: [address] [place] [address] Performed By: #### C VTV, BVAMP ####[facility] [id number] [place] [address] [place] Darya sp DNA MARK ANTHONY+probe Ql (Vag fld) Positive Abnormal Negative for Darya species [facility] Comment on above: Order Comment: Speci men Type: SWABOrdering Facility: [facility] Address: [address] [place] [address] Performed By: #### C VTV, BVAMP ####[facility] [id number] [place] [address] [place] T. vaginalis DNA MARK ANTHONY+probe Ql (Unsp spec) Negative Normal Negative for Trichomonas vaginalis by amplification [facility] Comment on above: Order Comment: Speci men Type: SWABOrdering Facility: [facility] Address: [address] [place] [address] Performed By: #### C VTV, BVAMP ####[facility] [id number] [place] [address] [place] CNOVon 11-23-2023 CNOV Office Visit (OBGYWM ) RICHARD SMITH ([id number]) 1995 F Date Time Provider Department 11/23/23 10:45 AM MARIANA HILARIO OBGYWM During your visit today, we recorded the following information about you: Blood pressure Weight Last Period 114/76 87.5 kg 10/18/23 Mariana Hilario APRN.CNM 11/23/2023 12:05 PM Signed Taxi Servicer offered: Patient declinesPatrick Curiel is a 28 year old who presents for an annual gynecologic exam without complaints. Menses: cycles every 28 days and 5 days of flow. Contraception: combined hormonal contraceptives. Denies warning signs ACHES. Migraine but without aura. HPV vaccine: Yes Last Pap: 12/20/2020 normal HPV: N/A History of abnormal pap: No Last mammogram: never Sexually active: Yes Pain with intercourse: No Postcoital bleeding: No OB History T1 L1 SAB0 IAB0 Ectopic0 Multiple0 Live Births1 Dye Tub Tender History LMP: 10/18/2023 (Approximate), Having periods Age at Menarche: Age at First : Age at Menopause: Dye Tub Tender History Comments: Sexual Activity: Yes; Male; Male present Contraception: Pill PAST MEDICAL HISTORY Diagnosis Date Anxiety Calculus of gallbladder without biliary obstruction 08/10/2019 Cervical intraepithelial neoplasia grade 1 2016 Elevated glucose 09/01/2019 Patient had elevated glucose on last BMP. BMI elevated, No FM history of diabetes. 08/2019: Hba1c 5.3 Seasonal allergies flonase. Shingles outbreak PAST SURGICAL HISTORY Procedure Laterality Date CHOLECYSTECTOMY HX 08/2019 NONE 05/2010 FAMILY HISTORY Problem Relation Age of Onset COPD Maternal Grandfather other (smoker) Maternal Grandfather Hypertension Maternal Grandmother Lipids Maternal Grandmother Anxiety disorder Mother Cancer Paternal Grandfather bone? Anxiety disorder Sister SOCIAL HISTORY Social History Tobacco Use Smoking status: Never Smokeless tobacco: Never Vaping Use Vaping status: Never Used Substance Use Topics Alcohol use: Not Currently Comment: social Drug use: No REVIEW OF SYSTEMS Abdomen: No abdominal pain, nausea, vomiting, diarrhea, or constipation. No bloating, early satiety, indigestion, or increased flatulence. Bladder: No dysuria, gross hematuria, urinary frequency, urinary urgency, or incontinence. Breast: No breast lumps, nipple d/c, overlying skin changes, redness or skin retraction. Allergies and current medication updated:Yes SENSITIVE EXAM: The sensitive examination was discussed with the Patient or Patient's Authorized Professional Model. As applicable, any other physician, advance practice provider, medical student, or other health professional student that will be observing or involved in the sensitive examination for educational or training purposes was discussed with the Patient or Authorized Professional Model. The Patient or Authorized Professional Model has agreed to proceed with the sensitive examination. (Sensitive examination includes inspection and/or palpation of the breasts, pelvis, prostate and anorectal regions). EXAM: BP 114/76 Wt 193 lb (87.5kg) LMP 10/18/2023 GENERAL: pleasant, female in no apparent distress HEENT: Normocephalic, atraumatic, mucus membranes moist, and no lesions NECK: Supple, full range of motion, no adenopathy, and thyroid normal DERMATOLOGY: Normal, without lesions, non-icteric, and non-hirsute BREAST: soft, non-tender, symmetric, no dominant mass, no lymphadenopathy, no nipple discharge. Bilateral nipples inverted. Patient states this is new and have never been this way. CHEST: Normal inspiratory effort ABDOMEN: soft, non-tender, and no masses PELVIC: external genitalia normal, normal Bartholin's glands, urethra, Buford's glands, no vulvar lesions, no cervical lesions, good vaginal support, physiologic discharge present, normal appearing perineal body and perianal region BIMANUAL: uterus normal size, shape and consistency, no adnexal masses, and non-tender RECTOVAGINAL: deferred. NEURO: alert and oriented x3,exam grossly non-focal EXTREMITIES: normal ASSESSMENT/PLAN: 1. Encounter for gynecological examination (general) (routine) with abnormal findings - ICD9: V72.31, ICD10: Z01.411 (primary diagnosis) - Completed pelvic and breast exam - Encouraged monthly BSE - Follow up for annual exam in one year. - PAP TEST - BACTERIAL VAGINOSIS NAAT - DARYA/TRICHOMONAS NAAT - GONORRHEA/CHLAMYDIA NAAT 2. Screening for cervical cancer - ICD9: V76.2, ICD10: Z12.4 - Completed pelvic and breast exam - Encouraged monthly BSE - Follow up for annual exam in one year. - PAP TEST 3. Encounter for screening for human papillomavirus (HPV) - ICD9: V73.81, ICD10: Z11.51 - PAP TEST 4. Inverted nipple - ICD9: 611.79, ICD10: N64.59 - US BREAST LTD RIGHT - US BREAST LTD LEFT 5. Vaginal discharge - ICD9: 623.5, ICD10: N89.8 - DARYA/TRI (more content not included)... Normal [facility] HIGH RISK HUMAN PAPILLOMA RADHA (HPV), PCR FOR DETECTION AND GENOTYPINGon 11-23-2023 HPV 16 Ag Ql (Unsp spec) Not detected Normal Not detected [facility] Comment on above: Order Comment: Speci men Type: URINE SPECIMEN Ordering Facility: [facility] Address: [address] [place] [address] Performed By: #### 2 890-2 #### [facility] CLIA [id number] [address] [place] [address] [place] HPV 18 Ag Ql (Unsp spec) Not detected Normal Not detected [facility] Comment on above: Order Comment: Speci men Type: URINE SPECIMEN Ordering Facility: [facility] Address: [address] [place] [address] Performed By: #### 2 890-2 #### [facility] CLIA [id number] [address] [place] [address] [place] HPV 31+33+35+39+45+51+52+ 56+58+59+66+68 DNA MARK ANTHONY+probe Ql (Cvx) Not detected Normal Not detected [facility] Comment on above: Order Comment: Speci men Type: URINE SPECIMEN Ordering Facility: [facility] Address: [address] [place] [address] Result Comment: High Risk HPV Other Type includes HPV types 31, 33, 35, 39, 45, 51, 52, 56, 58, 59, 66 and 68. Performed By: #### 2 890-2 #### [facility] CLIA [id number] [address] [place] [address] [place] PAP TESTon 11-23-2023 ADEQUACY Satisfactory for interpretation. Normal [facility] Comment on above: Order Comment: Speci men Type: URINE SPECIMEN Ordering Facility: [facility] Address: [address] [place] [address] Performed By: #### 2 890-2 #### [facility] CLIA [id number] [address] [place] [address] [place] CASE REPORT Normal [facility] Comment on above: Order Comment: Speci men Type: URINE SPECIMEN Ordering Facility: [facility] Address: [address] [place] [address] Result Comment: Gyne cologic Cytology Report Case: [id number] Authorizing Provider: Mariana Hilario APRN.CNM Collected: 11/23/2023 11:57 AM Ordering Location: OB/Gynecology Received: 11/23/2023 04:38 PM First Screen: Santi Solomon, CT, ASCP Specimen: Pap Test, ThinPrep, Cervix Performed By: #### 2 890-2 #### [facility] CLIA [id number] [address] [place] [address] [place] CLINICAL HISTORY, CYTOLOGY, GEMOLOGIST Routine Exam Normal [facility] Comment on above: Order Comment: Speci men Type: URINE SPECIMEN Ordering Facility: [facility] Address: [address] [place] [address] Performed By: #### 2 890-2 #### [facility] CLIA [id number] [address] [place] [address] [place] FINAL PERFORMING LAB Normal [facility] Comment on above: Order Comment: Speci men Type: URINE SPECIMEN Ordering Facility: [facility] Address: [address] [place] [address] Result Comment: Tech nical component, lining ironer screening performed at [facility], [address] [place], [place] [id number] CLIA# [id number] Diagnostic interpretation performed at [facility], [address] [place] [address] [place] [address] CLIA# [id number] Wood Grinder Operator: Pancho Coles M.D. Performed By: #### 2 890-2 #### [facility] CLIA [id number] [address] [place], [place] [address] [place] HPV REFLEX Yes HPV Normal [facility] Comment on above: Order Comment: Speci men Type: URINE SPECIMEN Ordering Facility: [facility] Address: [address] [place] [address] Performed By: #### 2 890-2 #### [facility] CLIA [id number] [address] [place] [address] [place] INTERPRETATION, CYTOLOGY, GEMOLOGIST Normal [facility] Comment on above: Order Comment: Speci men Type: URINE SPECIMEN Ordering Facility: [facility] Address: [address] [place] [address] Result Comment: Nega tive for intraepithelial lesion or malignancy. Performed By: #### 2 890-2 #### [facility] CLIA [id number] [address] [place] [address] [place] LMP 10/18/2023 Normal [facility] Comment on above: Order Comment: Speci men Type: URINE SPECIMEN Ordering Facility: [facility] Address: [address] [place] [address] Performed By: #### 2 890-2 #### [facility] CLIA [id number] [address] [place] [address] [place] PAP DISCLAIMER COMMENT The Pap Smear is a screening test for cervical cancer. False negative results occur with all screening tests, emphasizing the need for rescreening at recommended intervals, and clinical correlation. Normal [facility] Comment on above: Order Comment: Speci men Type: URINE SPECIMEN Ordering Facility: [facility] Address: [address] [place] [address] Performed By: #### 2 890-2 #### [facility] CLIA [id number] [address] [place] [address] [place] PAP TOLL TICKET CLERK COMMENT This specimen has be en analyzed by the ThinPrep Imaging System, an automated imaging and review system, which assists the laboratory in evaluating cells on ThinPrep Pap tests. Following automated imaging, selected fox from every slide are reviewed by a lining ironer. Normal [facility] Comment on above: Order Comment: Speci men Type: URINE SPECIMEN Ordering Facility: [facility] Address: [address] [place] [address] Performed By: #### 2 890-2 #### [facility] CLIA [id number] [address] [place] [address] [place] INFLUENZA A&B MOLECULAR (POC )on 04-16-2023 Flu A (POCT) Positive Abnormal Negative [facility] Procedural Control Valid [facility] Comprehensive metabolic 2000 panelon 01-11-2022 Albumin [Mass/Vol] 4.3 g/dL 3.9 - 4.9 g/dL [facility] ALP [Catalytic activity/Vol] 87 U/L 34 - 123 U/L [facility] ALT [Catalytic activity/Vol] 32 U/L 7 - 38 U/L [facility] Anion gap [Moles/Vol] 14 mmol/L 9 - 18 mmol/L [facility] AST [Catalytic activity/Vol] 22 U/L 13 - 35 U/L [facility] Bilirubin [Mass/Vol] 0.3 mg/dL 0.2 - 1 .3 mg/dL [facility] Calcium [Mass/Vol] 8.3 mg/dL Low 8.5 - 10. 2 mg/dL [facility] Chloride [Moles/Vol] 104 mmol/L 97 - 10 5 mmol/L [facility] CO2 [Moles/Vol] 21 mmol/L Low 22 - 30 mmol/L [facility] Creatinine [Mass/Vol] 0.86 mg/dL 0.58 - 0.96 mg/dL [facility] Estimated Glomerular Filtration Rate 95 mL/min/1.73m >=60 mL/min/1.73m [facility] Glucose [Mass/Vol] 113 mg/dL High 74 - 99 mg/dL [facility] Potassium [Moles/Vol] 3.8 mmol/L 3.7 - 5.1 mmol/L [facility] Protein [Mass/Vol] 7.1 g/dL 6.3 - 8.0 g/dL [facility] Sodium [Moles/Vol] 139 mmol/L 136 - 144 mmol/L [facility] Urea nitrogen [Mass/Vol] 13 mg/dL 7 - 21 mg/dL [facility] HbA1c (Bld)on 01-11-2022 Average glucose Estimated from glycated hemoglobin (Bld) [Mass/Vol] 105 mg/dL [facility] HbA1c (Bld) [Mass fraction] 5.3 % 4.3 - 5.6 % [facility] T3 FREE BLDon 01-11-2022 Free T3 [Mass/Vol] 2.9 pg/mL 2.3 - 4.1 pg/mL [facility] T4 FREE/FREE THYROXon 2021 Free T4 [Mass/Vol] 0.9 ng/dL 0.9 - 1.7 ng/dL [facility] THYROID PEROXIDASE ANTIBODY BLOODon 01-11-2022 TPO Ab Qn 2.5 [IU]/mL <5.6 IU/mL [facility] TSH BLDon 01-11-2022 TSH Qn 3.110 m[IU]/L 0.270 - 4.200 mIU/L [facility] XR Shoulder - right 3 Viewso n 08-02-2021 IMPRESSION: No acute osseous abnormality. Water Plant Maintenance Mechanic: ERVIN Transcribe Date/Time: Aug 02 2021 10:06A Dictated by : DENITA MARTINS DO This examination was interpreted and the report reviewed and electronically signed by: DENITA MARTINS DO on Aug 02 2021 10:08AM EST Janak[facility]_DO_NOT_U _DIVISION OF RADIOLOGY * * *Final Report* * * DATE OF EXAM: Aug 02 2021 10:04AM WOX 5253 - XR SHLDR >/=3V AP/JORGE AP/OTHR RT / PROCEDURE REASON: Acute pain of right shoulder * * * * Physician Interpretation * * * * EXAMINATION: XR SHLDR >/=3V AP/JORGE AP/OTHR RT PATIENT/TECHNOLOGIST PROVIDED HISTORY: Right posterior shoulder pain x 1 day after doing yard work CLINICAL INFORMATION: 26 years old Female with Acute pain of right shoulder TECHNIQUE: XR SHLDR >/=3V AP/JORGE AP/OTHR RT Laterality: RIGHT Number of different views (projections): 3 COMPARISON: None RESULT: No fracture or dislocation. Glenohumeral and acromioclavicular joint spaces are maintained. Acromiohumeral interval is maintained. JanakZZ_DO_NOT_U _DIVISION OF RADIOLOGY Provider, [facility] - 08/02/2021 * * *Final Report* * * DATE OF EXAM: Aug 02 2021 10:04AM WOX 5253 - XR SHLDR >/=3V AP/JORGE AP/OTHR RT / PROCEDURE REASON: Acute pain of right shoulder * * * * Physician Interpretation * * * * EXAMINATION: XR SHLDR >/=3V AP/JORGE AP/OTHR RT PATIENT/TECHNOLOGIST PROVIDED HISTORY: Right posterior shoulder pain x 1 day after doing yard work CLINICAL INFORMATION: 26 years old Female with Acute pain of right shoulder TECHNIQUE: XR SHLDR >/=3V AP/JORGE AP/OTHR RT Laterality: RIGHT Number of different views (projections): 3 COMPARISON: None RESULT: No fracture or dislocation. Glenohumeral and acromioclavicular joint spaces are maintained. Acromiohumeral interval is maintained. IMPRESSION IMPRESSION: No acute osseous abnormality. Water Plant Maintenance Mechanic: ERVIN Transcribe Date/Time: Aug 02 2021 10:06A Dictated by : DENITA MARTINS DO This examination was interpreted and the report reviewed and electronically signed by: DENITA MARTINS DO on Aug 02 2021 10:08AM EST [facility] Radiology Study observation (narrative) [facility] XR Shoulder - right 3 ViewsO rdered By: Ccf Provider on 08-02-2021 [facility] XR Shoulder - left 3 Viewson 03-02-2021 IMPRESSION: No acute osseous abnormality identified. Water Plant Maintenance Mechanic: ERVIN Transcribe Date/Time: Mar 02 2021 10:31A Dictated by : ANTONETTE MAHAN MD This examination was interpreted and the report reviewed and electronically signed by: ANTONETTE MAHAN MD on Mar 02 2021 10:32AM [facility] DIVISION OF RADIOLOGY * * *Final Report* * * DATE OF EXAM: Mar 02 2021 10:29AM WOX 5252 - XR SHLDR >/=3V AP/JORGE AP/OTHR LT / PROCEDURE REASON: Acute pain of left shoulder * * * * Physician Interpretation * * * * Left shoulder radiographs HISTORY: 25 years old Clinical information: Acute pain of left shoulder Left lateral upper humerus pain with lump x 4 days no injury TECHNIQUE: Images: XR SHLDR >/=3V AP/JORGE AP/OTHR LT Comparison: None. RESULT: Findings: Glenohumeral and acromioclavicular joint spaces are maintained. No fracture or dislocation. No soft tissue abnormality identified. DIVISION OF RADIOLOGY Provider, Vivian Koehler [facility] - 03/02/2021 * * *Final Report* * * DATE OF EXAM: Mar 02 2021 10:29AM WOX 5252 - XR SHLDR >/=3V AP/JORGE AP/OTHR LT / PROCEDURE REASON: Acute pain of left shoulder * * * * Physician Interpretation * * * * Left shoulder radiographs HISTORY: 25 years old Clinical information: Acute pain of left shoulder Left lateral upper humerus pain with lump x 4 days no injury TECHNIQUE: Images: XR SHLDR >/=3V AP/JORGE AP/OTHR LT Comparison: None. RESULT: Findings: Glenohumeral and acromioclavicular joint spaces are maintained. No fracture or dislocation. No soft tissue abnormality identified. IMPRESSION IMPRESSION: No acute osseous abnormality identified. Water Plant Maintenance Mechanic: PSCB Transcribe Date/Time: Mar 02 2021 10:31A Dictated by : ANTONETTE MAHAN MD This examination was interpreted and the report reviewed and electronically signed by: ANTONETTE MAHAN MD on Mar 02 2021 10:32AM EST [facility] Radiology Study observation (narrative) [facility] XR Shoulder - left 3 ViewsOr dered By: Ccf Provider on 03-02-2021 [facility] No Panel Informationon 02-07 IMPRESSION: No acute process is seen. Water Plant Maintenance Mechanic: PSC Transcribe Date/Time: Feb 07 2021 9:31A Dictated by : NETTA JHA MD This examination was interpreted and the report reviewed and electronically signed by: NETTA JHA MD on Feb 07 2021 9:32AM EST DIVISION OF RADIOLOGY Radiology Study observation (narrative) [facility] No Panel InformationOrdered By: Ccf Provider on 02-07-2021 [facility] XR Ankle - left AP and Later al and obliqueon 02-07-2021 * * *Final Report* * * DATE OF EXAM: Feb 07 2021 9:27AM WOX 5298 - XR ANKLE 3V AP/LAT/OBL LT / PROCEDURE REASON: Acute left ankle pain * * * * Physician Interpretation * * * * History: Pain FINDINGS: AP, lateral, and oblique views of the left ankle and foot have been obtained. The bones are well-mineralized without evidence of acute fracture or dislocation. The ankle mortise is intact. Joint spaces are maintained. No gross soft tissue abnormality is seen. DIVISION OF RADIOLOGY Provider, [facility] - 02/07/2021 * * *Final Report* * * DATE OF EXAM: Feb 07 2021 9:27AM WOX 5298 - XR ANKLE 3V AP/LAT/OBL LT / PROCEDURE REASON: Acute left ankle pain * * * * Physician Interpretation * * * * History: Pain FINDINGS: AP, lateral, and oblique views of the left ankle and foot have been obtained. The bones are well-mineralized without evidence of acute fracture or dislocation. The ankle mortise is intact. Joint spaces are maintained. No gross soft tissue abnormality is seen. IMPRESSION IMPRESSION: No acute process is seen. Water Plant Maintenance Mechanic: ERVIN Transcribe Date/Time: Feb 07 2021 9:31A Dictated by : NETTA JHA MD This examination was interpreted and the report reviewed and electronically signed by: NETTA JHA MD on Feb 07 2021 9:32AM EST [facility] XR Foot - left AP and Latera l and obliqueon 02-07-2021 * * *Final Report* * * DATE OF EXAM: Feb 07 2021 9:27AM WOX 5336 - XR FOOT 3V AP/LAT/OBL LT / PROCEDURE REASON: Acute left ankle pain * * * * Physician Interpretation * * * * History: Pain FINDINGS: AP, lateral, and oblique views of the left ankle and foot have been obtained. The bones are well-mineralized without evidence of acute fracture or dislocation. The ankle mortise is intact. Joint spaces are maintained. No gross soft tissue abnormality is seen. DIVISION OF RADIOLOGY Provider, [facility] - 02/07/2021 * * *Final Report* * * DATE OF EXAM: Feb 07 2021 9:27AM WOX 5336 - XR FOOT 3V AP/LAT/OBL LT / PROCEDURE REASON: Acute left ankle pain * * * * Physician Interpretation * * * * History: Pain FINDINGS: AP, lateral, and oblique views of the left ankle and foot have been obtained. The bones are well-mineralized without evidence of acute fracture or dislocation. The ankle mortise is intact. Joint spaces are maintained. No gross soft tissue abnormality is seen. IMPRESSION IMPRESSION: No acute process is seen. Water Plant Maintenance Mechanic: ERVIN Transcribe Date/Time: Feb 07 2021 9:31A Dictated by : NETTA JHA MD This examination was interpreted and the report reviewed and electronically signed by: NETTA JHA MD on Feb 07 2021 9:32AM EST [facility] Telephone Encounteron 2020 Music Industry Intern Authentication Interface Message Text Pt requesting to have all her OB medical records to be send to: [place] [employer] TOOL[employer] MACHINE OPERATOR [address] [place] [address]# [phone] LARISA has been advised for patient to be signed in order to process. Normal [facility] HPV High Riskon 07-06-2017 HPV (subset 1 of 2) Presence Positive Abnormal Negative [facility] Comment on above: Result Comment: This test was developed and its performance characteristicsdetermined by [employer]. It has not been cleared or approvedby the Food and Drug Administration.This high-risk HPV test detects thirteen high-risk types(16/18/31/33/35/39/45/51/52/56/58/59/68) without differentiation.Performed at: =[address] [place] [id number] MD Mayda Ruffin Performed By: #### 1 [id number], [id number], [id number] ####[address] [place] [address] IGP W/hpv Rfx [id number] 07-06 Softball Player (cervix/vaginal) Comment Invalid Interpretation Code [facility] Comment on above: Result Comment: Tho Wong, Auditing Coder (ASCP) Performed By: #### 1 [id number], [id number], [id number] ####[facility] [address] [place] [address] Cytology report (cervical/vaginal) Comment Invalid Interpretation Code [facility] Comment on above: Result Comment: This liquid based SurePath(R) pap test was screened with theassistance of an image guided system. Performed By: #### 1 [id number], [id number], [id number] ####[facility] [address] [place] [address] Diagnosis: Comment Abnormal [facility] Comment on above: Result Comment: EPIT HELIAL CELL ABNORMALITY.ATYPICAL SQUAMOUS CELLS OF UNDETERMINED SIGNIFICANCE. Performed By: #### 1 [id number], [id number], [id number] ####[facility] [address] [place] [address] HPV Indication Comment Invalid Interpretation Code [facility] Comment on above: Result Comment: See below for HPV testing results.Performed at: [facility] [place] [facility] [address] [place] [id number] MD Osmin Foleyformed at: [facility] [address] [place] [id number] MD Mayda Ruffin Performed By: #### 1 [id number], [id number], [id number] ####[address] [place] [address] Note Comment Invalid Interpretation Code [facility] Comment on above: Result Comment: The Pap smear is a screening test designed to aid in the detection ofpremalignant and malignant conditions of the uterine cervix. It is not adiagnostic procedure and should not be used as the sole means of detectingcervical cancer. Both false-positive and false-negative reports do occur. Performed By: #### 1 [id number], [id number], [id number] ####[address] [place] [address] Path Provided ICD9 Comment Invalid Interpretation Code [facility] Comment on above: Result Comment: R87. 610 Performed By: #### 1 [id number], [id number], [id number] ####[address] [place] [address] Pathologist (cervix/vaginal) Comment Invalid Interpretation Code [facility] Comment on above: Result Comment: Elias Salcedo MD, Pathologist Performed By: #### 1 [id number], [id number], [id number] ####[facility] [address] [place] [address] Statement of adequacy (cervix/vaginal) Comment Invalid Interpretation Code [facility] Comment on above: Result Comment: Sati sfactory for evaluation. Endocervical and/or squamous metaplasticcells (endocervical component) are present. Performed By: #### 1 [id number], [id number], [id number] ####[facility] [address] [place] [address] Physician Read Latanya PATHOLOGIST REVIEW:IMP:PT:XXX:JAVID : Performed Invalid Interpretation Code [facility] Comment on above: Result Comment: No. of containers..01 Surepath Collection VialPerformed at: [facility] [address] [id number] MD Osmin Wren Performed By: #### 1 [id number], [id number], [id number] ####[facility] [address] [place] [address] Coding Summary.on 06-28-2017 Coding Summary. CODING DATE: FINAL [facility] STATUS: Home (Routine DC) PAYOR: Medicaid EA DESCRIPTION 0392 PAP SMEARS ADMIT DX: REASON FOR VISIT DX: Z39.2 Encounter for routine follow-up FINAL DX: PRINCIPAL: Z39.2 Encounter for routine follow-up SECONDARY: PYMT PROC EAPG STAT DESCRIPTION DOCTOR NAME DATE NOTE: The code number assigned matches the documented diagnosis and / or procedure in the patient's chart. However, the narrative phrase printed from the coding software may appear abbreviated, or result in slightly different terminology. Coded By: Alfred Otoole Date Saved: 06/28/2017 03:49 pm Normal [facility] Coding Summary.on 05-19-2017 Coding Summary. CODING DATE: FINAL [facility] STATUS: Home (Routine DC) PAYOR: Medicaid Grouper: 775 MS-DRG Vaginal delivery w/o complicating diagnoses Low Trim 0 High Trim 999 560 APR-DRG VAGINAL DELIVERY Severity of Illness Minor Risk of Mortality Minor ADMIT DX: O70.0 First degree perineal laceration during delivery REASON FOR VISIT DX: FINAL DX: PRINCIPAL: O70.0 N First degree perineal laceration during delivery SECONDARY: Z37.0 1 Single live Z3A.40 1 40 weeks gestation of PROCEDURES DOCTOR NAME DATE [id number] Delivery of Products of Venancio Riddle MD 05/16/2017 Conception, External Approach [id number] Repair Perineum Skin, External Venancio Riddle MD 05/16/2017 Approach [id number] Introduction of Analgesics, Tello Lanier Jr., DO 05/16/2017 Hypnotics, Sedatives into Spinal Canal, Percutaneous Approach [id number] Drainage of Amniotic Fluid, Venancio Riddle MD 05/16/2017 Therapeutic from Products of Conception, Via Natural or Artificial Opening NOTE: The code number assigned matches the documented diagnosis and / or procedure in the patient's chart. However, the narrative phrase printed from the coding software may appear abbreviated, or result in slightly different terminology. Coded By: Kaitlyn Mendoza Date Saved: 05/19/2017 06:57 pm [facility] Delivery Summaryon 8 Delivery Summary DATE OF DELIVERY: 05/16/2017The patient is a 22-year-old 1, para 0, AB 0 white female at 40weeks gestation who presented to Labor and Delivery for labor. Herprenatal course had been complicated by need for fluoxetine, otherwiserelatively uncomplicated. Artificial rupture of membranes wasaccomplished. A gentle pitocin augmentation was initiated which allowedher to make gradual progress through the latent phase of labor into theactive phase of labor. She reached complete and complete and pushedthrough the second stage of labor after some occiput posterior labor andpushed through the second stage spontaneously delivering a 7 pound 10 ouncemale with Apgars of 7 and 9. Some meconium-stained fluid wassuctioned at the perineum without difficulty. Arterial cord pH wasobtained. The placenta delivered spontaneously intact. The uteruscontracted down well. A first degree laceration was repaired with 3-0Polysorb suture in anatomic fashion without difficulties or problems. Bothmom and were doing well in the room.Venancio Riddle MD, FACOGglsDictated: 05/18/2017 #[id number]: 05/18/2017 #[id number]: Venancio Riddle MD, [facility] Comment on above: Result Comment: Elec tronically Signed By: Venancio Riddle MD\.br\Date and Time Signed: 05/18/17 09:33 EDT Discharge Instructions Given Worseningon 05-18-2017 Discharge Instructions Given Worsening The following Patient Education Materials have been given to the patient: EducationMaterial [facility] Discharge Summaryon 05-19-19 Discharge Summary DATE OF DISCHARGE: 05/18/2017The patient is without complaints. Positive flatus. Positive void.Vital signs are stable, afebrile. Breasts non-tender, non-pathologic.Abdomen fundus firm and below the umbilicus. She has scant lochia. Theperineum is intact. The patient is ready for release. Good instructionsare given. The patient is to return to my office in six weeks. She isgiven the following prescriptions for her home use: Motrin and prenatalvitamins.DISCHA RGE DIAGNOSIS: Vaginal delivery. Course: Need for fluoxetine at the third trimester.Intrapartum Course: Spontaneous vaginal delivery of a 7 pound 10 ouncemale infant with Apgars of 7 and 9, without complications.Postpartu m Course: Without complications.Venancio Riddle MD, FACOGglsDictated: 05/18/2017 #[id number]: 05/18/2017 #[id number]: Venancio Riddle MD, [facility] Comment on above: Result Comment: Elec tronically Signed By: Venancio Riddle MD\.br\Date and Time Signed: 05/18/17 09:33 EDT History and Physicalon 05-18 History and Physical HOSPITAL REGULATION S: ALL Positive Important Negative Findings Shall BeRecordedDATE ADMITTED: 05/15/2017TRIAGE NOTEThe patient is a 22-year-old 1, para 0, AB 0 white female whopresented to Labor and Delivery for labor. Her course had beencomplicated by need for fluoxetine in the third trimester, otherwiserelatively uncomplicated. She presents for induction. Please refer to theHistory and Physical and physical examination for details.Venancio Riddle MD, FACOGglsDictated: 05/18/2017 #[id number] 05/18/2017 #[id number]: Venancio Riddle MD, FACOG Normal [facility] Comment on above: Result Comment: Elec tronically Signed By: Georgette ADAMS, Venancio Freitas\.br\Date and Time Signed: 05/18/17 09:33 EDT Inpatient Clinical Summaryon 05-18-2017 Inpatient Clinical Summary [place] [address] Clinical Summary Person Information Name: Wei SMITH/Soni Age: 22 Years : 1995 12:00 AM Sex: Female PCP: Venancio Riddle MD Marital Status:Single Race:White Ethnicity:Non- or Language:East Timorese Visit Id: Visit Reason: Speciality: Acuity: 2 PP Enc Type: Inpatient Med Service: Obstetrics Arrival:05/15/2017 4:41 PM Discharge: 05/18/2017 1:45 PM Dispo Type: Home (Routine DC) Address:[address] [place] [id number] Provider Notes:Discharge Summary Diagnosis:Normal labor and delivery Problems No Problems Documented Smoking Status:Never Smoker Functional Status:Sensory Deficits: No hearing deficits, No visual deficitsHistory of Falls: Mobility Assistance Prior to Admission: IndependentADLs: IndependentCurrent Level of Assistance for Self-Care/Mobility: Cognitive Status: Allergies Imitrex (unknown) Laboratory or Other Results This Visit (last charted value for your 05/15/2017 visit) Hematology 05/17/2017 6:05 AM Hct: 27.5 % -- Normal range between ( 34.0 and 46.0 ) Hgb: 9.3 gm/dL -- Normal range between ( 12.0 and 16.0 ) RBC: 3.2 E12/L -- Normal range between ( 4.3 and 5.9 ) RDW: 14.1 % -- Normal range between ( 10.9 and 14.2 ) MCH: 28.6 pg -- Normal range between ( 27.0 and 34.0 ) MCHC: 33.7 gm/dL -- Normal range between ( 31.4 and 39.3 ) MCV: 84.6 fL -- Normal range between ( 80.0 and 100.0 ) MPV: 10.7 fL -- Normal range between ( 6.4 and 10.8 ) Platelet: 106.0 E9/L -- Normal range between ( 150.0 and 500.0 ) WBC: 11.8 E9/L -- Normal range between ( 4.0 and 11.0 ) Urinalysis 05/15/2017 9:12 PM UA Bili: Negative UA Color: Yellow UA Glucose: Negative UA Ketones: Negative UA Leuk Est: Trace UA Mucous: Trace UA Nitrite: Negative UA Protein: Trace UA RBC: 0-3 /HPF UA Squam Epithelial: 0-2 /HPF UA Urobilinogen: 0.2 EU/dL -- Normal range between ( 0.0 and 1.0 ) UA WBC: 0-5 /HPF UA Spec Desc: Random Urine UA Blood: Negative UA Clarity: Clear UA pH: 6.5 -- Normal range between ( 5.0 and 9.0 ) UA Spec Grav: 1.020 -- Normal range between ( 1.005 and 1.030 ) Chemistry 05/15/2017 5:00 PM U Benzodia Scr: Negative U Cocaine Scr: Negative U Opiate Scr: Negative U PCP Scr: Negative U Cannab Scr: Negative U Amph Scr: Negative U Dilcia Scr: Negative U Suboxone Scr: Negative Blood Bank 05/15/2017 5:29 PM ABO/Rh: A POS ABSC Gel Interp: Negative Measurements:Height: 165 cmWeight: 95.9 kgBlood Pressure: 122 mmHg / 83 mmHgBMI: Procedures No Procedures Documented Immunizations diphtheria/pertussis, acel/tetanus adult (05/18/2017) Final Med List:fluoxetine (Prozac 20 mg Cap) ibuprofen (ibuprofen 600 mg Tab) 1 Tabs By Mouth every 6 hours. Refills: 0.multivitamin, ( Multivitamins with Folic Acid 1 mg oral tablet) 1 Tabs By Mouth every day. Refills: 0. Care Team Members:Attending Physician: Venancio Riddle MDConsulting Physician: Referring Physician: Follow up:With: Address: When: Dr. Riddle [phone] Within 6 weeks Comments: Call for any problems. Patient Education Information: Normal [facility] Inpatient Patient Summaryon 05-18-2017 Inpatient Patient Summary [place] [address] Patient Discharge Instructions PERSON INFORMATION Name: RICHARD SMITH Date of : 1995 12:00 AM Current Date: 05/18/17 14:33:05 PHYSICIANS Admitting Physician: Venancio Riddle MDPrimary Care Physician: Venancio Riddle MDPCP comment: Discharge Diagnosis: Normal labor and deliveryCondition at Discharge: Stable RICHARD SMITH has been given the following list of follow-up instructions, prescriptions, and patient education materials: PATIENT FOLLOW-UP INFORMATIONDiet: RegularActivity: Expect mild pain, Expect minimal amount of drainage and/or bleeding, Activity as toleratedWound Care Instructions: Remove Your Dressing IN: DaysCall Your Doctor For: Persistent or heavy bleeding, Temperature above 101.5 degrees, Persistent vomiting IF UNABLE TO CONTACT YOUR PHYSICIAN AND YOU FEEL IT IS AN EMERGENCY, GO TO THE NEAREST EMERGENCY ROOM OR CALL 911 Home Treatment: Devices/Equipment: Special Services: Additional Instructions: Physician to provide the following pending test results: None Follow up:With: Address: When: Dr. Riddle [phone] Within 6 weeks Comments: Call for any problems. In the event that this physician does not participate in your insurance network, please consult with your insurance company to find a nearby participating provider. Comment: SARAH Broderick KERA, have received the attached patient education materials/instructions and have verbalized understanding:Do You Have Everything You Need When You Go Home? Yes___ No___Will You Have Help at Home After Discharge? Yes___ No___Do You Understand the Symptoms/Problems to Look For in Regards to Yourself and/or Your Infant? Yes___ No___Patient Signature Date Clinican /Nurse Signature _ Date MEDICATI ON LISTNew MedicationsCV[id number], [address] [place] [address], [phone] (ibuprofen 600 mg Tab) 1 Tabs By Mouth every 6 hours. Refills: 0.Last Dose: __Next Dose: __Medications to Continue with No ChangesOther Medicationsfluoxetine (Prozac 20 mg Cap) Last Dose: __Next Dose: __multivitamin, ( Multivitamins with Folic Acid 1 mg oral tablet) 1 Tabs By Mouth every day. Refills: 0.Last Dose: __Next Dose: __ Pharmacy Information: [facility] [place] MOTHER EDUCATIONGENERAL INSTRUCTIONSRoom Orientation: Verbalizes understandingBathing/Hy giene: Verbalizes understandingBurping: Verbalizes understandingBulb Syringe Use: Verbalizes understandingCrib Contents-Diapers, Wipes, Formula for Home: Verbalizes understandingImportance of Follow-up Visits- Mom in 6 weeks, See DC instructions for Baby: Verbalizes understandingVaginal Discharge/Psuodomenses- girl: Verbalizes understandingCircumcisi on-boy: Verbalizes understandingSELF CAREPerineal Care-Written/Verbal Info Given, Use Water Bottle: Verbalizes understandingLocia Changes/Cramps/Vaginal Bleeding, Report if Heavy: Verbalizes understandingSitz Baths: Incision/Episiotomy Care: Verbalizes understandingBreast Care: Verbalizes understandingBowel Habits/Laxative Over the Counter: Verbalizes understandingBladder Habits/Empty Bladder Frequently: Verbalizes understandingPostpartum Depression/Baby Blues- Call physician if very sad: Verbalizes understandingPain Management- Script Given at Discharge: Verbalizes understandingPlan of Care: Verbalizes understandingBOTTLE FEEDINGBottle Cleaning and Preparation: Verbalizes understandingBottle Feeding Frequency/Amount: Verbalizes understandingBREAST FEEDINGNutrition: Positioning Baby: Nipple Care/Engorgement: Latch On: PATIENT EDUCATION INFORMATIONInstructions :Medication Leaflets: Thank you for choosing [facility] Normal [facility] CBC w/Indiceson 05-17-2017 Erythrocyte distribution width Auto Ratio (RBC) 14.1 % Normal 10.9-14.2 [facility] Comment on above: Performed By: #### 2 [id number] ####[facility] [address] [place] [address] Erythrocytes (RBC) 3.2 E12/L Low 4.3-5.9 [facility] Comment on above: Performed By: #### 2 [id number] ####[facility] [address] [place] [address] Hematocrit (HCT) 27.5 % Low 34.0-46.0 [facility] Comment on above: Performed By: #### 2 857655 ####[facility] [address] [place] [address] Hemoglobin mass conc (Bld) 9.3 g/dL Low 12.0-16.0 [facility] Comment on above: Performed By: #### 2 [id number] ####[place] [address] [place] [address] MCH 28.6 pg Normal 27.0-34.0 [facility] Comment on above: Performed By: #### 2 [id number] ####[place] [address] [place] [address] MCHC mass conc (RBC) 33.7 g/dL Normal 31.4-39.3 [facility] Comment on above: Performed By: #### 2 [id number] ####[facility] [address] [place] [address] MCV 84.6 fL Normal 80.0-100.0 [facility] Comment on above: Performed By: #### 2 987559 ####[facility] [address] [place] [address] Platelet mean volume (PMV) 10.7 fL Normal 6.4-10.8 [facility] Comment on above: Performed By: #### 2 [id number] ####[facility] [address] [place] [address] Platelets 106.0 E9/L Low 150.0-500.0 [facility] Comment on above: Performed By: #### 2 609772 ####[facility] [address] [place] [address] WBC (Leukocytes) 11.8 E9/L High 4.0-11.0 [facility] Comment on above: Performed By: #### 2 [id number] ####[facility] [address] [place] [address] Progress Note-Physicianon Progress Note-Physician Patient: RICHARD SMTIH Age: 22 years Sex: Female : 1995 Associated Diagnoses: None Author: Georgette ADAMS, Venancio Freitas Chief Complaint patient without major complaints Physical Examination Vital Signs 05/17/2017 07:34 EDT Temperature Oral 36.6 DegC Heart Rate Monitored 81 bpm Systolic Blood Pressure 122 mmHg Diastolic Blood Pressure 83 mmHg Breast: No mass, No tenderness. Exam: Uterus: Symmetric, firm and below the umbillicus, firm and below the umbillicus, normal lochia, normal lochia. Musculoskeletal extremities nontender. extremities nontender. Impression and Plan Plan Routine care. Course: Progressing as expected. Normal [facility] Comment on above: Result Comment: Elec tronically Signed By: Venancio Riddle MD\.br\Date and Time Signed: 05/17/17 08:24 EDT Progress Note-Physicianon Progress Note-Physician Patient: RICHARD SMITH Age: 22 years Sex: Female : 1995 Associated Diagnoses: None Author: Tello Lanier Jr., DO Postoperative Information Post Operative Note: Day 2. Anesthetic utilized: Regional: Epidural. Health Status Allergies: Allergic Reactions (Selected)Severity Not DocumentedImitrex- Unknown. Problem list: All ProblemsPregnancy / SNOMED CT 995278993 / ConfirmedResolved: None / SNOMED CT 936923469 Physical Examination General: Alert and oriented, No acute distress. Neurologic: Normal sensory, Normal motor function, No focal deficits. Review / Management Condition: Stable. Assessment Anesthetic outcome No post-epidural complications noted.. Plan Transfer/ Discharge: Condition stable. Normal [facility] Comment on above: Result Comment: Elec tronically Signed By: Tello Lanier Jr., DO\.br\Date and Time Signed: 05/16/17 07:03 EDT Progress Note-Physician Patient: RICHARD SMITH Age: 22 years Sex: Female : 1995 Associated Diagnoses: None Author: Tello Lanier Jr., DO Chief Complaint Intrauterine Health Status Allergies: Allergic Reactions (All)Severity Not DocumentedImitrex- Unknown.Canceled/Inacti ve Reactions (All)Severity Not DocumentedExcedrin Migraine Geltab- Unable to move jaw.No Known Allergies Current medications.Problem list: All ProblemsPregnancy / SNOMED CT 742765184 / ConfirmedResolved: None / SNOMED CT 233442693 Review of Systems Respiratory: Negative. Cardiovascular: Negative. Hematology/Lymphatics: No bruising tendency, No bleeding tendency. Neurologic: Negative. Physical Examination Please refer to Labor floor nursing records for ongoing vital signs, and for intake and output totals while epidural was running. Review / Management Differential diagnosis: Active labor. OB Results Review Labor 05/15/2017 17:29 EDT WBC 9.2 E9/L RBC 3.8 E12/L LOW Hgb 11.0 gm/dL LOW Hct 32.1 % LOW MCV 83.8 fL MCH 28.8 pg MCHC 34.3 gm/dL RDW 13.6 % Platelet 148.0 E9/L LOW MPV 10.5 fL Impression and Plan Plan Labor epidural at request of patient.. Procedure Epidural injection procedure Date/ Time: 05/15/17 20:29:00. Confirmed: patient, procedure, site, safety procedures followed. Performed by: Tello Lanier DO. Informed consent: signed by patient. Indication: Active labor.. Preparation and technique: informed consent obtained (from patient before the procedure), positioned (sitting), sterile preparation of site (patient's back was sterilly prepped and draped) (in usual fashion, with 10 % povidone iodine, draped to expose affected area), local anesthesia (1% lidocaine was applied to the patient's back before the epidural was attempted) (lidocaine without epinephrine, _1_ cc injected subcutaneously), approach (midline), needle (17 ga touhy) (placed via loss of resistance technique, At _L4-L5_ interspace.), aspiration (attempted for blood and CSF), injectant (test dose consisting of 3 ml of 1.5% lodocaine with 1:200,000 epi) (test dose given, Epidural catheter inserted and secured at a depth of _11_ cm at skin.). Procedure tolerated: well. Complications: Negative heme, negative CSF, and negative response to test dose.. Professional Services Epidural Medications Administered: Bolus dose consisted of _7_ ml of 0.2% Ropivicaine and 100 mcg of fentanyl (2 ml) at 2042. Then a premixed epidural bag of 0.2% Ropivicaine, and 2 mcg/ml of fentanyl was administered via PCEA with basal rate at 10 ml/hour and demand boluses of _5_ ml with a lockout interval of _30_ minutes. The PCEA was started at 2045. Normal [facility] Comment on above: Result Comment: Elec tronically Signed By: Tello Lanier Jr., DO\.br\Date and Time Signed: 05/16/17 07:02 EDT ABO/Rhon 05-15-2017 ABO/Rh Positive Invalid Interpretation Code [facility] Comment on above: Performed By: #### 2 [id number], [id number], [id number], [id number] ####[facility] [address] [place] [address] ABO/Rh History Checkon 05-15 ABO/Rh History Check Verified Hx Blood Type Normal [facility] Comment on above: Performed By: #### 2 [id number], [id number], [id number], [id number] ####[facility] [address] [place] [address] ABSCon 05-15-2017 ABSC Gel Interp Negative Normal [facility] Comment on above: Order Comment: Will arrive at 17:30 Performed By: #### 2 712366, [id number], [id number], [id number] ####[address] [address] Blood Bank ID#on 05-15-2017 BBID# [id number] Invalid Interpretation Code [facility] Comment on above: Performed By: #### 2 984966, [id number], [id number], [id number] ####[address] [address] CBC w/Indiceson 05-15-2017 Erythrocyte distribution width Auto Ratio (RBC) 13.6 % Normal 10.9-14.2 [facility] Comment on above: Performed By: #### 2 760948 ####[address] [address] Erythrocytes (RBC) 3.8 E12/L Low 4.3-5.9 [facility] Comment on above: Performed By: #### 2 319022 ####[place] [address] [place] [address] Hematocrit (HCT) 32.1 % Low 34.0-46.0 [facility] Comment on above: Performed By: #### 2 060621 ####[facility] [address] [place] [address] Hemoglobin mass conc (Bld) 11.0 g/dL Low 12.0-16.0 [facility] Comment on above: Performed By: #### 2 788655 ####[facility] [address] [place] [address] MCH 28.8 pg Normal 27.0-34.0 [facility] Comment on above: Performed By: #### 2 946584 ####[facility] [address] [place] [address] MCHC mass conc (RBC) 34.3 g/dL Normal 31.4-39.3 [facility] Comment on above: Performed By: #### 2 960296 ####[address] [address] MCV 83.8 fL Normal 80.0-100.0 [facility] Comment on above: Performed By: #### 2 814108 ####[address] [address] Platelet mean volume (PMV) 10.5 fL Normal 6.4-10.8 [facility] Comment on above: Performed By: #### 2 631537 ####[address] [address] Platelets 148.0 E9/L Low 150.0-500.0 [facility] Comment on above: Performed By: #### 2 803361 ####[address] [address] WBC (Leukocytes) 9.2 E9/L Normal 4.0-11.0 [facility] Comment on above: Performed By: #### 2 162817 ####[address] [address] U Drug Screenon 05-15-2017 AMPHETAMINES:PRTHR:PT :URINE:ORD:SCREEN>100 0 NG/ML Negative Normal Negative [facility] Comment on above: Result Comment: Nega tive Cutoff: <1000 ng/mL Performed By: #### 2 417927 ####[address] [address] OPIATES:PRTHR:PT:URIN E:ORD:SCREEN Negative Normal Negative [facility] Comment on above: Result Comment: Nega tive Cutoff: <300 ng/mL Performed By: #### 2 683717 ####[facility] [address] [place] [address] PHENCYCLIDINE:PRTHR:P T:URINE:ORD:SCREEN>25 NG/ML Negative Normal Negative [facility] Comment on above: Result Comment: Nega tive Cutoff: <25 ng/mLThese drug screen results are to be used for medical (i.e., treatment) purposes only. Unconfirmed drug screening results must not be used for non-medical purposes (e.g., employment testing, legal testing). Performed By: #### 2 977781 ####[place] [address] TETRAHYDROCANNABINOL: PRTHR:PT:URINE:ORD:SC REEN>50 NG/ML Negative Normal Negative [facility] Comment on above: Result Comment: Nega tive Cutoff: <50 ng/mL Performed By: #### 2 084735 ####[address] [address] Urine, barbiturates presence Negative Normal Negative [facility] Comment on above: Result Comment: Nega tive Cutoff: <200 ng/mL Performed By: #### 2 511406 ####[address] [address] Urine, benzodiazepines presence Negative Normal Negative [facility] Comment on above: Result Comment: Nega tive Cutoff: <200 ng/mL Performed By: #### 2 273404 ####[address] [address] Urine, cocaine presence Negative Normal Negative [facility] Comment on above: Result Comment: Nega tive Cutoff: <300 ng/mL Performed By: #### 2 472020 ####[facility] [address] [place] [address] UA With Cult Reflexon 2017 Bilirubin Ql (U) Negative Normal Negative [facility] Comment on above: Order Comment: Urina ry Catheter Insertion triggered Urinalysis With Culture Reflex order by discern. Performed By: #### 1 [id number] ####[place] [address] COLOR:TYPE:PT:URINE:N OM:AUTO YELLOW Normal Yellow [facility] Comment on above: Order Comment: Urina ry Catheter Insertion triggered Urinalysis With Culture Reflex order by discern. Performed By: #### 1 [id number] ####[place] [address] Erythrocytes (RBC) 0-3 Normal 0-3 [facility] Comment on above: Order Comment: Urina ry Catheter Insertion triggered Urinalysis With Culture Reflex order by discern. Performed By: #### 1 [id number] ####[place] [address] GLUCOSE:MCNC:PT:URINE :QN:TEST STRIP Negative Normal Negative [facility] Comment on above: Order Comment: Urina ry Catheter Insertion triggered Urinalysis With Culture Reflex order by discern. Performed By: #### 1 [id number] ####[place] [address] KETONES:MCNC:PT:URINE :QN:TEST STRIP Negative Normal Negative [facility] Comment on above: Order Comment: Urina ry Catheter Insertion triggered Urinalysis With Culture Reflex order by discern. Performed By: #### 1 [id number] ####[place] [address] LEUKOCYTES:PRTHR:PT:U RINE:ORD:AUTOMATED TRACE Abnormal Negative [facility] Comment on above: Order Comment: Urina ry Catheter Insertion triggered Urinalysis With Culture Reflex order by discern. Performed By: #### 1 [id number] ####[place] [address] UA Spec Desc Random Urine Normal [facility] Comment on above: Order Comment: Urina ry Catheter Insertion triggered Urinalysis With Culture Reflex order by discern. Performed By: #### 1 [id number] ####[place] [address] Urine, clarity CLEAR Normal Clear [facility] Comment on above: Order Comment: Urina ry Catheter Insertion triggered Urinalysis With Culture Reflex order by discern. Performed By: #### 1 [id number] ####[facility] [address] [place] [address] Urine, hemoglobin presence Negative Normal Negative [facility] Comment on above: Order Comment: Urina ry Catheter Insertion triggered Urinalysis With Culture Reflex order by discern. Performed By: #### 1 [id number] ####[facility] [address] [place] [address] Urine, leukocytes in sedmiment 0-5 Normal 0-5 [facility] Comment on above: Order Comment: Urina ry Catheter Insertion triggered Urinalysis With Culture Reflex order by discern. Performed By: #### 1 [id number] ####[facility] [address] [place] [address], [place] [address] Urine, mucus presence in sediment TRACE Normal [facility] Comment on above: Order Comment: Urina ry Catheter Insertion triggered Urinalysis With Culture Reflex order by discern. Performed By: #### 1 [id number] ####[facility] [address] [place] [address] Urine, nitrite presence Negative Normal Negative [facility] Comment on above: Order Comment: Urina ry Catheter Insertion triggered Urinalysis With Culture Reflex order by discern. Performed By: #### 1 [id number] ####[facility] [address] [place] [address] Urine, pH 6.5 [pH] Invalid Interpretation Code 5.0-9.0 [facility] Comment on above: Order Comment: Urina ry Catheter Insertion triggered Urinalysis With Culture Reflex order by discern. Performed By: #### 1 [id number] ####[facility] [address] [place] [address] Urine, protein TRACE Abnormal Negative [facility] Comment on above: Order Comment: Urina ry Catheter Insertion triggered Urinalysis With Culture Reflex order by discern. Performed By: #### 1 [id number] ####[facility] [address] [place] [address] Urine, specific gravity 1.020 Invalid Interpretation Code 1.005-1.030 [facility] Comment on above: Order Comment: Urina ry Catheter Insertion triggered Urinalysis With Culture Reflex order by discern. Performed By: #### 1 [id number] ####[facility] [address] [place] [address] Urine, squamous cells in sediment 0-2 Normal 0-2 [facility] Comment on above: Order Comment: Urina ry Catheter Insertion triggered Urinalysis With Culture Reflex order by discern. Performed By: #### 1 [id number] ####[address] [address] Urine, urobilinogen 0.2 {George'U}/dL Normal 0.0-1.0 [facility] Comment on above: Order Comment: Urina ry Catheter Insertion triggered Urinalysis With Culture Reflex order by discern. Performed By: #### 1 [id number] ####[address] [address] C Urineon 03-19-2017 Urine culture, bacteria MicrobiologyPROCEDURE: Urine Culture [R1] U CleanCatch BODY SITE:COLLECTED DATE/TIME: 03/17/2017 14:40 EST RECEIVED DATE/TIME: 03/17/2017 15:19 ESTSTART DATE/TIME: 03/17/2017 15:19 EST FREE TEXT SOURCE:Georgette ADAMS, Venancio Riddle MD, Venancio FreitasFINAL REPORTSFinal Report [] Verified Date/Time: 03/19/2017 08:46 EST2,000 cfu/ml Mixed skin contaminantsPerforming LocationsR1: This test was performed at: [facility], [address] [place] [address], [address] , [facility] Comment on above: Performed By: #### 1 [id number], [id number] ####[address] [address] Coding Summary.on 03-19-2017 Coding Summary. CODING DATE: 018 FINAL [facility] DSC STATUS: Home (Routine DC) PAYOR: Medicaid EAPG DESCRIPTION 0410 URINALYSIS 0396 LEVEL I MICROBIOLOGY TESTS 0496 MINOR PHARMACOTHERAPY 0401 LEVEL II CHEMISTRY TESTS 0191 LEVEL I PROCEDURES 0450 OBSERVATION 0111 PHARMACOTHERAPY EXCEPT BY EXTENDED INFUSION 0490 INCIDENTAL TO MEDICAL, SIGNIFICANT PROCEDURE OR THERAPY VISIT ADMIT DX: REASON FOR VISIT DX: Z34.03 Encounter for supervision of normal first , third trimester FINAL DX: PRINCIPAL: Z34.03 Encounter for supervision of normal first , third trimester SECONDARY: Z3A.31 31 weeks gestation of PYMT PROC EAPG STAT DESCRIPTION DOCTOR NAME DATE NOTE: The code number assigned matches the documented diagnosis and / or procedure in the patient's chart. However, the narrative phrase printed from the coding software may appear abbreviated, or result in slightly different terminology. Revised Coded By: Carly Kirby Revised Date Saved: 03/19/2017 08:04 am Normal [facility] Discharge Instructions Given Worseningon 03-17-2017 Discharge Instructions Given Worsening The following Patient Education Materials have been given to the patient: EducationMaterial Normal [facility] FFNon 03-17-2017 FIBRONECTIN.:PRT HR:PT:VAG:ORD: Negative [facility] Comment on above: Result Comment: In [place] , a positive result is associated with delivery in: -symptomatic women between 24-36 weeks, 6 days gestation -asymptomatic women between 22-30 weeks, 6 days gestation Manipulation of the cervix may lead to false positive results. Cervicovaginal specimens should be obtained prior to digital examination or manipulation of the cervix. Lubricants, soaps, disinfectants, or creams may interfere with absorption of the specimen by the applicator or with the antibody-antigen reaction. Performed By: #### 1 [id number] ####[facility] [address] [place] [address] Inpatient Clinical Summaryon 03-17-2017 Inpatient Clinical Summary [address] [address] Clinical Summary Person Information Name: Wei SMITH/Soni Age: 21 Years : 1995 12:00 AM Sex: Female PCP: Georgette ADAMS, Venancio Freitas Marital Status:Single Race:White Ethnicity:Non- or Language:East Timorese Visit Id: Visit Reason:31 WEEKS Speciality: Acuity: Obs Enc Type: Observation Med Service: Obstetrics Arrival:03/17/2017 2:26 PM Discharge: 03/17/2017 7:10 PM Dispo Type: Home (Routine DC) Address:[address] [facility] [id number] Provider Notes: Diagnosis: Problems Active (09/05/2016) Smoking Status:Never Smoker Functional Status:Sensory Deficits: History of Falls: Mobility Assistance Prior to Admission: ADLs: Current Level of Assistance for Self-Care/Mobility: Cognitive Status: Allergies Imitrex (unknown) Laboratory or Other Results This Visit (last charted value for your 03/17/2017 visit) Urinalysis 03/17/2017 2:40 PM UA Bacteria: 3+ /HPF UA Bili: Negative UA Color: Yellow UA Glucose: Negative UA Ketones: Negative UA Leuk Est: Trace UA Nitrite: Negative UA Protein: Negative UA RBC: 4-20 /HPF UA Squam Epithelial: >10 /HPF UA Urobilinogen: 0.2 EU/dL -- Normal range between ( 0.0 and 1.0 ) UA WBC: >30 /HPF UA Spec Desc: Random Urine UA Blood: Negative UA Clarity: Cloudy UA pH: 6.0 -- Normal range between ( 5.0 and 9.0 ) UA Spec Grav: 1.025 -- Normal range between ( 1.005 and 1.030 ) Blood Bank 03/17/2017 3:00 PM Fibronectin: Negative Measurements:Height: 165.1 cmWeight: 84.1 kgBlood Pressure: 101 mmHg / 66 mmHgBMI: 30.85 kg/m2 Procedures No Procedures Documented Immunizations No Immunizations Documented This Visit Final Med List:fluoxetine (Prozac 20 mg Cap) multivitamin, ( Multivitamins with Folic Acid 1 mg oral tablet) 1 Tabs By Mouth every day. Refills: 0. Care Team Members:Attending Physician: Venancio Riddle MDConsulting Physician: Referring Physician: Follow up:With: Address: When: Venancio Riddle [address] [place] [address], [address] [address] [facility] (1) 02/16/17 00:00:00 Comments: Call Dr if fever>100.5 F, heavy bleeding Call for any problems. Call for severe abdominal pain Call physician for heavy vaginal bleeding Call physician if symptoms worsen Return for contractions closer, longer, and harder Return for decreased movement keep scheduled appt with dr riddle Patient Education Information: Normal [facility] Inpatient Patient Summaryon 03-17-2017 Inpatient Patient Summary [address] [address] Patient Discharge Instructions PERSON INFORMATION Name: RICHARD SMITH Date of : 1995 12:00 AM Current Date: 03/17/17 19:12:57 PHYSICIANS Admitting Physician: Venancio Riddle MDPrimary Care Physician: Venancio Riddle MDPCP comment: Discharge Diagnosis: Condition at Discharge: SARAHRICHARD has been given the following list of follow-up instructions, prescriptions, and patient education materials: PATIENT FOLLOW-UP INFORMATIONDiet: Activity: Wound Care Instructions: Remove Your Dressing IN: DaysCall Your Doctor For: IF UNABLE TO CONTACT YOUR PHYSICIAN AND YOU FEEL IT IS AN EMERGENCY, GO TO THE NEAREST EMERGENCY ROOM OR CALL 911 Home Treatment: Devices/Equipment: Special Services: Additional Instructions: Physician to provide the following pending test results: Follow up:With: Address: When: Venancio Riddle [address] [place] [address] Business (1) 02/16/17 00:00:00 Comments: Call Dr if fever>100.5 F, heavy bleeding Call for any problems. Call for severe abdominal pain Call physician for heavy vaginal bleeding Call physician if symptoms worsen Return for contractions closer, longer, and harder Return for decreased movement keep scheduled appt with dr riddle In the event that this physician does not participate in your insurance network, please consult with your insurance company to find a nearby participating provider. Comment: SARAH Broderick KERA, have received the attached patient education materials/instructions and have verbalized understanding:Do You Have Everything You Need When You Go Home? Yes___ No___Will You Have Help at Home After Discharge? Yes___ No___Do You Understand the Symptoms/Problems to Look For in Regards to Yourself and/or Your Infant? Yes___ No___Patient Signature Date Clinican /Nurse Signature _ Date MEDICATI ON LISTMedications to Continue with No ChangesOther Medicationsfluoxetine (Prozac 20 mg Cap) Last Dose: __Next Dose: __multivitamin, ( Multivitamins with Folic Acid 1 mg oral tablet) 1 Tabs By Mouth every day. Refills: 0.Last Dose: __Next Dose: __No Longer Take the Following Medicationsampicillin (ampicillin 500 mg Cap) 1 Capsules By Mouth 2 times a day. Refills: 0. Pharmacy Information: [facility] MOTHER EDUCATIONGENERAL INSTRUCTIONSRoom Orientation: Bathing/Hygiene: Burping: Bulb Syringe Use: Crib Contents-Diapers, Wipes, Formula for Home: Importance of Follow-up Visits- Mom in 6 weeks, See DC instructions for Baby: Vaginal Discharge/Psuodomenses- girl: Circumcision-boy: SELF CAREPerineal Care-Written/Verbal Info Given, Use Water Bottle: [place]ia Changes/Cramps/Vaginal Bleeding, Report if Heavy: Sitz Baths: Incision/Episiotomy Care: Breast Care: Bowel Habits/Laxative Over the Counter: Bladder Habits/Empty Bladder Frequently: Depression/Baby Blues- Call physician if very sad: Pain Management- Script Given at Discharge: Plan of Care: Verbalizes understandingBOTTLE FEEDINGBottle Cleaning and Preparation: Bottle Feeding Frequency/Amount: BREAST FEEDINGNutrition: Positioning Baby: Nipple Care/Engorgement: Latch On: PATIENT EDUCATION INFORMATIONInstructions :Medication Leaflets: Thank you for choosing [facility] Normal [facility] UA With Cult Reflexon 2017 BACTERIA:PRTHR:PT:URI NE SED:ORD:MICROSCOPY.LI GHT 3+ /HPF Abnormal Trace [facility] Comment on above: Performed By: #### 1 [id number], [id number] ####[address] [address] [place] [address] Bilirubin Ql (U) Negative Normal Negative [facility] Comment on above: Performed By: #### 1 [id number], [id number] ####[address] [address] COLOR:TYPE:PT:URINE:N OM:AUTO YELLOW Normal Yellow [facility] Comment on above: Performed By: #### 1 [id number], [id number] ####[facility] [address] [place] [address] Erythrocytes (RBC) 4-20 Normal 0-3 [facility] Comment on above: Performed By: #### 1 [id number], [id number] ####[facility] [address] [place] [address] GLUCOSE:MCNC:PT:URINE :QN:TEST STRIP Negative Normal Negative [facility] Comment on above: Performed By: #### 1 [id number], [id number] ####[facility] [address] [address] KETONES:MCNC:PT:URINE :QN:TEST STRIP Negative Normal Negative [facility] Comment on above: Performed By: #### 1 6598519, 4775494 ####[address] [address] LEUKOCYTES:PRTHR:PT:U RINE:ORD:AUTOMATED TRACE Abnormal Negative [facility] Comment on above: Performed By: #### 1 7102765, [id number] ####[address] [address] UA Spec Desc Random Urine Normal [facility] Comment on above: Performed By: #### 1 [id number], [id number] ####[address] [address] Urine, clarity CLOUDY Abnormal Clear [facility] Comment on above: Performed By: #### 1 [id number], 4314098 ####[address] [address] Urine, hemoglobin presence Negative Normal Negative [facility] Comment on above: Performed By: #### 1 1818365, [id number] ####[address] [address] Urine, leukocytes in sedmiment /[HPF] Abnormal 0-5 [facility] Comment on above: Performed By: #### 1 0139895, 7706448 ####[address] [address] Urine, nitrite presence Negative Normal Negative [facility] Comment on above: Performed By: #### 1 1583712, 3335010 ####[address] [address] Urine, pH 6.0 [pH] Invalid Interpretation Code 5.0-9.0 [facility] Comment on above: Performed By: #### 1 3351840, 2543075 ####[address] [address] Urine, protein Negative Normal Negative [facility] Comment on above: Performed By: #### 1 1567628, 6202617 ####[facility] [address] [place] [address] Urine, specific gravity 1.025 Invalid Interpretation Code 1.005-1.030 [facility] Comment on above: Performed By: #### 1 5737776, 8995177 ####[facility] [address] [place] [address] Urine, squamous cells in sediment /[HPF] Normal 0-2 [facility] Comment on above: Performed By: #### 1 8068403, 8027988 ####[facility] [address] [place] [address] Urine, urobilinogen 0.2 {George'U}/dL Normal 0.0-1.0 [facility] Comment on above: Performed By: #### 1 7862679, 9308194 ####[address] [address] Coding Summary.on 02-20-2017 Coding Summary. CODING DATE: 018 [facility] STATUS: Home (Routine DC) PAYOR: Medicaid EA DESCRIPTION 0457 VENIPUNCTURE 0408 LEVEL I HEMATOLOGY TESTS 0402 BASIC CHEMISTRY TESTS ADMIT DX: REASON FOR VISIT DX: Z34.02 Encounter for supervision of normal first , second trimester FINAL DX: PRINCIPAL: Z34.02 Encounter for supervision of normal first , second trimester SECONDARY: Z3A.23 23 weeks gestation of PYMT PROC EA STAT DESCRIPTION DOCTOR NAME DATE NOTE: The code number assigned matches the documented diagnosis and / or procedure in the patient's chart. However, the narrative phrase printed from the coding software may appear abbreviated, or result in slightly different terminology. Coded By: Julee Unger Date Saved: 02/20/2017 06:59 am Normal [facility] Gest Scr Glu 1 Hron 02-19-19 Glucose mass conc 86 mg/dL Normal 55-140 [facility] Comment on above: Result Comment: Posi tive Screen =1 HR > 140mg/dL Performed By: #### 1 [id number], [id number] ####[facility] [address] [place] [address] Hct & Hgbon 02-19-2017 Hematocrit (HCT) 34.3 % Normal 34.0-46.0 [facility] Comment on above: Performed By: #### 1 [id number], [id number] ####[address] [address] Hemoglobin mass conc (Bld) 12.0 g/dL Normal 12.0-16.0 [facility] Comment on above: Performed By: #### 1 [id number], [id number] ####[address] [address] Coding Summary.on 11-03-2016 Coding Summary. CODING DATE: 017 [facility] STATUS: Home (Routine DC) PAYOR: Medicaid EAPG DESCRIPTION 0392 PAP SMEARS ADMIT DX: REASON FOR VISIT DX: Z34.01 Encounter for supervision of normal first , first trimester FINAL DX: PRINCIPAL: Z34.01 Encounter for supervision of normal first , first trimester SECONDARY: Z3A.11 11 weeks gestation of PYMT PROC EAPG STAT DESCRIPTION DOCTOR NAME DATE NOTE: The code number assigned matches the documented diagnosis and / or procedure in the patient's chart. However, the narrative phrase printed from the coding software may appear abbreviated, or result in slightly different terminology. Revised Coded By: Rani Bourgeois Revised Date Saved: 11/03/2016 04:01 pm Normal [facility] IGP W/hpv Rfx [id number] 11-03 Softball Player (cervix/vaginal) Comment Invalid Interpretation Code [facility] Comment on above: Result Comment: Patricia Bruce, Auditing Coder (ASCP) Performed By: #### 1 [id number] ####[address] [address] Cytology report (cervical/vaginal) Comment Invalid Interpretation Code [facility] Comment on above: Result Comment: This liquid based SurePath(R) pap test was screened with theassistance of an image guided system. Performed By: #### 1 [id number] ####[address] [address] Diagnosis: Comment Invalid Interpretation Code [facility] Comment on above: Result Comment: NEGA TIVE FOR INTRAEPITHELIAL LESION AND MALIGNANCY.CELLULAR CHANGES ASSOCIATED WITH INFLAMMATION ARE PRESENT.THIS SPECIMEN WAS RESCREENED PART OF OUR JUNIOR JAVA DEVELOPER PROGRAM. Performed By: #### 1 [id number] ####[address] [place] [id number] HPV Indication Comment Invalid Interpretation Code [facility] Comment on above: Result Comment: The HPV DNA reflex criteria were not met with this specimen resulttherefore, no HPV testing was performed.No. of containers..01 Surepath Collection VialPerformed at: [facility] [place] [id number] MD Mayda Ruffin Performed By: #### 1 [id number] ####[place] [address] Note Comment Invalid Interpretation Code [facility] Comment on above: Result Comment: The Pap smear is a screening test designed to aid in the detection ofpremalignant and malignant conditions of the uterine cervix. It is not adiagnostic procedure and should not be used as the sole means of detectingcervical cancer. Both false-positive and false-negative reports do occur. Performed By: #### 1 [id number] ####[address] [id number] QC Reviewed by: Comment Invalid Interpretation Code [facility] Comment on above: Result Comment: Nely Aguirre, Supervisory Auditing Coder (ASCP) Performed By: #### 1 [id number] ####[place] [address] Statement of adequacy (cervix/vaginal) Comment Invalid Interpretation Code [facility] Comment on above: Result Comment: Sati sfactory for evaluation. Endocervical and/or squamous metaplasticcells (endocervical component) are present. Performed By: #### 1 [id number] ####[address] [address] C Urineon 10-14-2016 Urine culture, bacteria MicrobiologyPROCEDURE: Urine Culture [R1] U CleanCatch BODY SITE:COLLECTED DATE/TIME: 10/12/2016 11:00 EDT RECEIVED DATE/TIME: 10/12/2016 20:57 EDTSTART DATE/TIME: 10/12/2016 20:57 EDT FREE TEXT SOURCE:Georgette ADAMS, Venancio Riddle MD, Venancio FreitasFINAL REPORTSFinal Report [] Verified Date/Time: 10/14/2016 10:06 EDT4,000 cfu/ml Lactobacillus species PresumptivePerforming LocationsR1: This test was performed at: [facility], [address] [place] [address], [address] , [facility] Comment on above: Performed By: #### 2 [id number] ####[facility] [address] [place] [address] Hep Bs Agon 10-14-2016 Hepatitis B antigen presence Negative Invalid Interpretation Code Negative [facility] Comment on above: Result Comment: Perf ormed at: [facility] [address] [id number] PhD Samla Campbell Performed By: #### 2 517326, 0887101, 3862932, 4303720 ####[facility] [address] [place] [address] Coding Summary.on 10-13-2016 Coding Summary. CODING DATE: 017 FINAL [facility] STATUS: Home (Routine DC) PAYOR: Medicaid EAPG DESCRIPTION 0394 LEVEL I IMMUNOLOGY TESTS 0408 LEVEL I HEMATOLOGY TESTS 0396 LEVEL I MICROBIOLOGY TESTS 0393 BLOOD AND TISSUE TYPING ADMIT DX: REASON FOR VISIT DX: Z34.01 Encounter for supervision of normal first , first trimester FINAL DX: PRINCIPAL: Z34.01 Encounter for supervision of normal first , first trimester SECONDARY: Z3A.09 9 weeks gestation of PYMT PROC EAPG STAT DESCRIPTION DOCTOR NAME DATE NOTE: The code number assigned matches the documented diagnosis and / or procedure in the patient's chart. However, the narrative phrase printed from the coding software may appear abbreviated, or result in slightly different terminology. Coded By: Rani Bourgeois Date Saved: 10/13/2016 09:54 am Normal [facility] RPRon 10-13-2016 Reagin antibody presence Non-Reactive Normal Non-Reactive [facility] Comment on above: Performed By: #### 2 [id number], 8207848, 4399357, 2186120 ####[facility] [address] [place] [address] Rubella Abon 10-13-2016 Rubella Ab Positive Normal Positive [facility] Comment on above: Performed By: #### 2 177203, 9519187, 0918356, 6312751 ####[facility] [address] [place] [address] ABO/Rhon 10-12-2016 ABO/Rh Positive Invalid Interpretation Code [facility] Comment on above: Performed By: #### 2 373404, 29606151 ####[facility] [address] [place] [address] ABSCon 10-12-2016 ABSC Gel Interp Negative Normal [facility] Comment on above: Performed By: #### 2 920983, 09079583 ####[facility] [address] [place] [address] CBC w/Indiceson 10-12-2016 Erythrocyte distribution width Auto Ratio (RBC) 13.0 % Normal 10.9-14.2 [facility] Comment on above: Performed By: #### 2 925118, 6549033, 8429001, 6377747 ####[facility] [address] [place] [address] Erythrocytes (RBC) 4.5 E12/L Normal 4.3-5.9 [facility] Comment on above: Performed By: #### 2 655744, 8073243, 1408285, 3993748 ####[facility] [address] [place] [address] Hematocrit (HCT) 40.7 % Normal 34.0-46.0 [facility] Comment on above: Performed By: #### 2 103244, 9245985, 3453648, 9073778 ####[facility] [place] [address] Hemoglobin mass conc (Bld) 13.4 g/dL Normal 12.0-16.0 [facility] Comment on above: Performed By: #### 2 078934, 4903892, 5226201, 1559038 ####[place] [address] MCH 29.7 pg Normal 27.0-34.0 [facility] Comment on above: Performed By: #### 2 226203, 6005093, 4124219, 0240419 ####[place] [address] MCHC mass conc (RBC) 33.0 g/dL Normal 31.4-39.3 [facility] Comment on above: Performed By: #### 2 241505, 5042103, 2732597, 4912662 ####[place] [address] MCV 89.9 fL Normal 80.0-100.0 [facility] Comment on above: Performed By: #### 2 404850, 2813926, 9371098, 8002495 ####[place] [address] Platelet mean volume (PMV) 10.8 fL Normal 6.4-10.8 [facility] Comment on above: Performed By: #### 2 745128, 5145562, 7639235, 0075564 ####[place] [address] Platelets 198.0 E9/L Normal 150.0-500.0 [facility] Comment on above: Performed By: #### 2 092888, 5980802, 4446503, 6541203 ####[place] [address] WBC (Leukocytes) 10.1 E9/L Normal 4.0-11.0 [facility] Comment on above: Performed By: #### 2 979991, 6472198, 4390318, 6894515 ####[address] [place] [address] Coding Summary.on 10-03-2016 Coding Summary. CODING DATE: 017 FINAL [facility] STATUS: Home (Routine DC) PAYOR: Medicaid EAPG DESCRIPTION 0457 VENIPUNCTURE 0410 URINALYSIS 0394 LEVEL I IMMUNOLOGY TESTS 0397 LEVEL II MICROBIOLOGY TESTS 0398 LEVEL I ENDOCRINOLOGY TESTS 0396 LEVEL I MICROBIOLOGY TESTS 0765 OTHER ANTEPARTUM DIAGNOSES ADMIT DX: REASON FOR VISIT DX: R10.9 Unspecified abdominal pain FINAL DX: PRINCIPAL: O99.89 Other specified diseases and conditions complicating , childbirth and the puerperium SECONDARY: R10.9 Unspecified abdominal pain O23.591 Infection of other part of genital tract in , first trimester N76.0 Acute vaginitis PYMT PROC EAPG STAT DESCRIPTION DOCTOR NAME DATE NOTE: The code number assigned matches the documented diagnosis and / or procedure in the patient's chart. However, the narrative phrase printed from the coding software may appear abbreviated, or result in slightly different terminology. Revised Coded By: Carly Kirby Revised Date Saved: 10/03/2016 11:20 am [facility] C Cervicalon 09-29-2016 Cervical Culture MicrobiologyPROCEDUR E: Cervical Culture [R1] Cerv BODY SITE:COLLECTED DATE/TIME: 09/27/2016 17:45 EDT RECEIVED DATE/TIME: 09/27/2016 18:19 EDTSTART DATE/TIME: 09/27/2016 18:19 EDT FREE TEXT SOURCE:Jenny Mcguire DO, DO, ErinFINAL REPORTSFinal Report [] Verified Date/Time: 09/29/2016 14:29 EDT1+ Normal vaginal osvaldo isolatedSTAINSWet Prep Report [] Verified Date/Time: 09/27/2016 18:34 EDTClue cells present No Trichomonas observed.Performing LocationsR1: [facility], [address] [place] [address], [address] , [facility] Comment on above: Performed By: #### 1 [id number] ####[facility] [address] [place] [address] ED Note-Physicianon 09-29-19 ED Note-Physician Patient: RICHARD SMITH Age: 21 years Sex: Female : 1995 Associated Diagnoses: None Author: Jenny Mcguire DO Basic Information Time seen: Date & time 09/27/16 17:30:00. History source: Patient. Arrival mode: Private vehicle, walking. History limitation: None. Additional information: Chief Complaint from Nursing Triage Note : Chief Complaint 09/27/2016 15:38 EDT Chief Complaint 8 weeks preg and started with vaginal bleeding 1 hour ago,lower abd cramping, . History of Present Illness Patient presents to [facility] with a chief complaint of vaginal bleeding x 1 hour. She states she was wiping 1 hour prior to arrival, and she noticed dark brown blood on the paper. She has been having some lower abdominal cramping today. She states she feels bloated. She had a positive test and ultrasound here that showed an IUP about 3 weeks ago. She states she has been having some white vaginal discharge. Denies dysuria, urgency, fever, and chills. She has had some frequency and nausea for the last month, which she attributes to her . Review of Systems Additional review of systems information: All other systems reviewed and otherwise negative, ROS as documented in HPI. All other systems reviewed and negative.. Health Status Allergies: Allergic Reactions (Selected)Severity Not DocumentedExcedrin Migraine Geltab- Unable to move jaw.. Medications: (Selected) PrescriptionsPrescribed Multivitamins with Folic Acid 1 mg oral tablet: 1 tab(s), Oral, Daily, 30 tab(s), Refill(s) 0. Past Medical/ Family/ Social History Medical history: ResolvedNone ([id number]): Resolved.. Surgical history: None ([id number]).. Family history: No family history items have been selected or recorded.. Social history: Social & Psychosocial QhrcjzSfeqsdn61/20/2016 Risk Assessment: No RiskSubstance Abuse10/26/2015 Risk Assessment: Denies Substance MivrjGpfdmkd08/20/2016 Risk Assessment: Denies Tobacco Use. Physical Examination Vital Signs Vital Signs 09/27/2016 17:15 EDT Peripheral Pulse Rate 80 bpm Respiratory Rate 16 br/min Systolic Blood Pressure 117 mmHg Diastolic Blood Pressure 80 mmHg SpO2 99 % 09/27/2016 15:38 EDT Temperature Oral 36.9 DegC Peripheral Pulse Rate 88 bpm Respiratory Rate 16 br/min Systolic Blood Pressure 112 mmHg Diastolic Blood Pressure 76 mmHg SpO2 99 % . General: Alert, no acute distress, Here with her Cousin. Skin: Warm, dry, no rash. Head: Normocephalic, atraumatic. Neck: Supple. Eye: Normal conjunctiva, vision grossly normal. Ears, nose, mouth and throat: Oral mucosa moist, No nasal discharge. Cardiovascular: Regular rate and rhythm, No murmur, Normal peripheral perfusion. Respiratory: Lungs are clear to auscultation, respirations are non-labored, breath sounds are equal, Symmetrical chest wall expansion. Gastrointestinal: Soft, Nontender, Non distended, Normal bowel sounds. Genitourinary: No tenderness, normal external genitalia, no lesions, External genitalia: Normal, Speculum exam: Cervix closed, discharge brown, No bleeding noted. Cervix is not erythematous., Exam performed by Dr. Mariana Lopez D.O., resident with nurse tire assembler present during the exam., Bimanual exam: no tenderness elicited. No masses palpated. Neurological: No focal neurological deficit observed, normal motor observed, normal speech observed. Psychiatric: Cooperative, appropriate mood & affect. Medical Decision Making Differential Diagnosis: Vaginal bleeding, threatened , vaginitis. Rationale: Due to patient's symptoms, a pelvic exam was performed. No bleeding was seen. Patient had an ultrasound on 09/14/16 that showed an IUP measuring 5w1d. Cervial culture positive for clue cells.Spoke with Dr. R[place] due to early and symptomatic bacterial vaginosis.. Orders Launch Order Profile (Selected) Inpatient OrdersInProcess (Stain)Cervical Culture: Cervical, Stat collect, 09/27/16 17:41:00 EDT, Stop date 09/27/16 17:42:00 EDT, Nurse collectOrdered (Collected)Chlamydia/Go nococcus, MARK ANTHONY: Cervical, Routine collect, 09/27/16 17:42:00 EDT, Stop date 09/27/16 17:42:00 EDT, Nurse collectCompletedUrinaly sis: Urine, Clean Catch, Stat collect, 09/27/16 15:41:00 EDT, Once, Stop date 09/27/16 15:41:00 EDT, Nurse collect, Clean catchhCG Quantitative: Blood, Stat collect, 09/27/16 15:47:00 EDT, Stop date 09/27/16 15:47:00 EDT, Lab Collect. Results review: Lab results : Lab View 09/27/2016 17:45 EDT Cervical Culture POS (In Progress) 09/27/2016 16:21 EDT Beta hCG Qnt 63,850 mIU/mL HI 09/27/2016 15:43 EDT UA Spec Desc Clean Catch UA Color Yellow UA Clarity Slightly Cloudy UA Spec Grav >=1.030 UA pH 5.5 UA Protein Negative UA Glucose Negative UA Ketones Negative UA Bili Negative UA Blood 3+ UA Nitrite Negative UA Urobilinogen 0.2 EU/dL UA Leuk Est Negative UA RBC 4-20 /HPF UA Squam Epithelial 9-10 /HPF UA WBC 0-5 /HPF UA Bacteria 3+ /HPF UA Mucous 1+ , Interpretation Results consistent with pregnancyCervical Culture consistent with bacterial vaginosis due to clue cells seen.. Reexamination/ Reevaluation 1853: Discussed test results with patient. She voices understanding. Discussed that her cervix was closed and I saw no bleeding on exam. Informed patient that her hormone levels are rising, so we do not need to do an ultrasound. Encouraged her to follow-up with Dr. Georgette RICHARD for care and evaluation. Patient voices understanding. Impression and Plan Diagnosis (DSB49-MG Z33.1, Discharge, Medical) Abdominal cramping (TLP10-UW R10.9, Discharge, Medical) Bacterial vaginosis (ANF02-TR N76.0, Discharge, Medical) Calls-Consults - Georgette ADAMS, Venancio Freitas, phone call, recommends ampicillin and a follow-up in the office for care.. Plan Condition: Stable. Disposition: Discharged: Time 09/27/16 18:41:00, to home. Prescriptions: Launch prescriptions Pharmacy:ampicillin 500 mg Cap (Prescribe): 500 = 1 mg cap(s), Oral, BID, # 14 cap(s), Refills(s) 0. Patient was given the following educational materials: Bacterial Vaginosis, Bcfc-sq-Ykxv, Vaginal Bleeding During , First Trimester. Follow up with: Mohinder Jurado In 3 days 09/30/2016; Venancio Riddle In 2 days 09/29/2016. Counseled: Patient, Family, Friend, Regarding diagnosis, Regarding diagnostic results, Regarding treatment plan, Regarding prescription, Patient indicated understanding of instructions. Normal [facility] Comment on above: Result Comment: Elec tronically Signed By: Jenny Mcguire DO\.br\Date and Time Signed: 09/28/16 09:19 EDT BhCG Quanton 09-27-2016 [place] [address] m[IU]/mL High 1-3 F [facility] Comment on above: Result Comment: GEST ATIONAL AGE HCG RANGE (mIU/mL) NON- <1-3 0.2-1 WEEKS 5-50 1-2 WEEKS 50-500 2-3 WEEKS 100-5,000 3-4 WEEKS 500-10,000 4-5 WEEKS 1,000-50,000 5-6 WEEKS 10,000-100,000 6-8 WEEKS 15,000-200,000 8-12 WEEKS 10,000-100,000 Performed By: #### 2 [id number], [id number] ####[facility] [address] [place] [address] ED Clinical Summaryon 2016 ED Clinical Summary (Inserted Image. Jeimy ble to display) [place] [address] ED Clinical SummaryPerson Information Name: Wei SMITH/JayShell Age: 21 Years : 1995 12:00 AM Sex: Female Language:East Timorese PCP: Marquis Freeman MD Marital Status:Single Visit Id: Visit Reason:Vaginal bleeding - < 20 wks ; VAGINAL BLEEDING 8 WKS PREG Speciality: Acuity: 3 Enc Type: Emergency Med Service: Emergency Arrival:09/27/2016 3:24 PM Discharge: 09/27/2016 7:41 PM LOS: 000 04:17 Checkin:09/27/2016 3:24 PM Checkout: 09/27/2016 7:41 PM Dispo Type: Home (Routine DC) EVENTS:Event Name Event Status Request Date/Time Start Date/Time Complete Date/Time Arrive Complete 09/27/2016 3:24 PM 09/27/2016 3:24 PM 09/27/2016 3:24 PM Document Home Meds Complete 09/27/2016 3:24 PM 09/27/2016 5:58 PM 09/27/2016 5:58 PM Triage Complete 09/27/2016 3:24 PM 09/27/2016 3:41 PM 09/27/2016 3:41 PM Pending Labs Complete 09/27/2016 3:41 PM 09/27/2016 4:25 PM Urine Collect Complete 09/27/2016 3:41 PM 09/27/2016 4:[address] Exam Complete 09/27/2016 3:45 PM 09/27/2016 3:45 PM 09/27/2016 3:45 PM Registration Complete 09/27/2016 3:45 PM 09/27/2016 4:12 PM 09/27/2016 4:12 PM Pending Labs Complete 09/27/2016 3:47 PM 09/27/2016 6:06 PM Lab Complete 09/27/2016 3:47 PM 09/27/2016 6:06 PM Reg Complete Request 09/27/2016 4:12 PM Reg Bed Request Complete 09/27/2016 4:12 PM 09/27/2016 4:12 PM 09/27/2016 4:12 PM Bed Assign Complete 09/27/2016 5:05 PM 09/27/2016 5:05 PM 09/27/2016 5:05 PM RN Exam Complete 09/27/2016 5:05 PM 09/27/2016 5:32 PM 09/27/2016 5:[address] Exam Complete 09/27/2016 5:06 PM 09/27/2016 5:06 PM 09/27/2016 5:06 PM Registration Complete 09/27/2016 5:06 PM 09/27/2016 6:59 PM 09/27/2016 6:59 PM Pending Labs Collected 09/27/2016 5:42 PM Lab Complete 09/27/2016 5:42 PM 09/27/2016 6:34 PM Discharge Complete 09/27/2016 7:06 PM 09/27/2016 7:41 PM 09/27/2016 7:41 PM Meds Admin Complete 09/27/2016 7:13 PM 09/27/2016 7:40 PM Transfer Complete 09/27/2016 7:41 PM 09/27/2016 7:41 PM 09/27/2016 7:41 PM ADDRESS:[address] [facility] [id number] PHYS DOC NOTES: MEDICAL INFORMATION: Prescriptions Given:Prescription Display ampicillin (ampicillin 500 mg Cap) 500 mg = 1 cap(s), Oral, BID, # 14 cap(s), Refills(s) 0 PATIENT EDUCATION INFORMATION: Instructions:Bacterial Vaginosis, Eevk-yq-Jilk; Vaginal Bleeding During , First Trimester Follow up:With: Address: When: Venancio R[place] [address] [facility], [address] [address] Business (1) In 2 days 09/29/2016 With: Address: When: Mohinder Jurado [address] [facility] [place] [address] Business (1) In 3 days DIAGNOSIS:Abdominal cramping; Bacterial vaginosis; Normal [facility] ED Patient Education Noteon 09-27-2016 ED Patient Education Note Patient Education Materials Follows:MedicineVaginal Bleeding During , First TrimesterA small amount of bleeding (spotting) from the vagina is relatively common in early . It usually stops on its own. Various things may cause bleeding or spotting in early . Some bleeding may be related to the , and some may not. In most cases, the bleeding is normal and is not a problem. However, bleeding can also be a sign of something serious. Be sure to tell your health care provider about any vaginal bleeding right away.Some possible causes of vaginal bleeding during the first trimester include: ? Infection or inflammation of the cervix.? Growths (polyps) on the cervix.? Miscarriage or threatened miscarriage.? tissue has developed outside of the uterus and in a fallopian tube (tubal ).? Tiny cysts have developed in the uterus instead of tissue (molar ).HOME CARE INSTRUCTIONSWatch your condition for any changes. The following actions may help to lessen any discomfort you are feeling:? Follow your health care provider's instructions for limiting your activity. If your health care provider orders bed rest, you may need to stay in bed and only get up to use the bathroom. However, your health care provider may allow you to continue light activity.? If needed, make plans for someone to help with your regular activities and responsibilities while you are on bed rest.? Keep track of the number of pads you use each day, how often you change pads, and how soaked (saturated) they are. Write this down.? Do not use tampons. Do not douche.? Do not have sexual intercourse or orgasms until approved by your health care provider.? If you pass any tissue from your vagina, save the tissue so you can show it to your health care provider.? Only take luqg-lgo-vvrjrjk or prescription medicines as directed by your health care provider. ? Do not take aspirin because it can make you bleed.? Keep all follow-up appointments as directed by your health care provider.SEEK MEDICAL CARE IF:? You have any vaginal bleeding during any part of your .? You have cramps or labor pains. ? You have a fever, not controlled by medicine. SEEK IMMEDIATE MEDICAL CARE IF:? You have severe cramps in your back or belly (abdomen).? You pass large clots or tissue from your vagina. ? Your bleeding increases.? You feel light-headed or weak, or you have fainting episodes.? You have chills.? You are leaking fluid or have a gush of fluid from your vagina.? You pass out while having a bowel movement. MAKE SURE YOU:? Understand these instructions.? Will watch your condition.? Will get help right away if you are not doing well or get worse.Document Released: 11/01/2005 Document Revised: 01/27/2014 Document Reviewed: 09/29/2013ExitCare? Patient Information ?2015 [employer]. This information is not intended to replace advice given to you by your health care provider. Make sure you discuss any questions you have with your health care provider.Obstetrics and GynecologyBacterial VaginosisBacterial vaginosis is an infection of the vagina. It happens when too many of certain germs (bacteria) grow in the vagina. HOME CARE? Take your medicine as told by your doctor.? Finish your medicine even if you start to feel better. ? Do not have sex until you finish your medicine and are better.? Tell your sex partner that you have an infection. They should see their doctor for treatment.? Practice safe sex. Use condoms. Have only one sex partner.GET HELP IF:? You are not getting better after 3 days of treatment.? You have more tierney fluid (discharge) coming from your vagina than before.? You have more pain than before.? You have a fever.MAKE SURE YOU:? Understand these instructions. ? Will watch your condition.? Will get help right away if you are not doing well or get worse.Please return to the ED for new or worsening symtpoms.Please follow-up with OB.Document Released: 10/31/2008 Document Revised: 11/12/2013 Document Reviewed: 09/03/2013ExitCare? Patient Information ?2015 [employer]. This information is not intended to replace advice given to you by your health care provider. Make sure you discuss any questions you have with your health care provider. Normal [facility] ED Patient Summaryon 017 ED Patient Summary (Inserted Image. Jeimy ble to display) [address] [address] Patient Discharge Instructions Person Information Name: RICHARD SMITH Age: 21 Years Date: 09/27/2016 3:24 PMDischarge Diagnosis: Abdominal cramping; Bacterial vaginosis; Primary Care Physician: Marquis Freeman MD Provider InformationPrimary Provider: Abby Mcguire DO Public Health Clinical Nurse Specialist:None The exam and treatment you received in the Emergency Department were for an urgent problem and are not intended as complete care. It is important that you follow up with a doctor, nurse practitioner, or physician?s front desk assistant for ongoing care. If your symptoms become worse or you do not improve as expected and you are unable to reach your usual health care provider, you should return to the Emergency Department. We are available 24 hours a day. RICHARD SMITH has been given the following list of patient education materials, prescriptions and follow-up instructions: Follow-up Instructions:With: Address: When: Venancio R[place] [address] [place] [address] Business (1) In 2 days 09/29/2016 With: Address: When: Mohinder Jurado [address] [place] [address], [facility] [place] [address] Business (1) In 3 days In the event that this physician does not participate in your insurance network, please consult with your insurance company to find a nearby participating provider. Patient Education Materials:Bacterial Vaginosis, Xuyo-uy-Xjeg; Vaginal Bleeding During , First Trimester Medications Given:Medication Dose Route ampicillin 500.00 mg Oral Medication Information:New MedicationsPrinted Prescriptionsampicillin (ampicillin 500 mg Cap) 1 Capsules By Mouth 2 times a day. Refills: 0.Medications to Continue with No ChangesOther Medicationsmultivitamin , ( Multivitamins with Folic Acid 1 mg oral tablet) 1 Tabs By Mouth every day. Refills: 0.Comment: Pharmacy Information: Thank you for choosing [facility] P atient Education Materials: Bacterial VaginosisBacterial vaginosis is an infection of the vagina. It happens when too many of certain germs (bacteria) grow in the vagina. HOME CARE? Take your medicine as told by your doctor.? Finish your medicine even if you start to feel better. ? Do not have sex until you finish your medicine and are better.? Tell your sex partner that you have an infection. They should see their doctor for treatment.? Practice safe sex. Use condoms. Have only one sex partner.GET HELP IF:? You are not getting better after 3 days of treatment.? You have more tierney fluid (discharge) coming from your vagina than before.? You have more pain than before.? You have a fever.MAKE SURE YOU:? Understand these instructions. ? Will watch your condition.? Will get help right away if you are not doing well or get worse.Please return to the ED for new or worsening symtpoms.Please follow-up with OB.Document Released: 10/31/2008 Document Revised: 11/12/2013 Document Reviewed: 09/03/2013ExitCare? Patient Information ?2014 [employer]. This information is not intended to replace advice given to you by your health care provider. Make sure you discuss any questions you have with your health care provider.Vaginal Bleeding During , First TrimesterA small amount of bleeding (spotting) from the vagina is relatively common in early . It usually stops on its own. Various things may cause bleeding or spotting in early . Some bleeding may be related to the , and some may not. In most cases, the bleeding is normal and is not a problem. However, bleeding can also be a sign of something serious. Be sure to tell your health care provider about any vaginal bleeding right away.Some possible causes of vaginal bleeding during the first trimester include: ? Infection or inflammation of the cervix.? Growths (polyps) on the cervix.? Miscarriage or threatened miscarriage.? tissue has developed outside of the uterus and in a fallopian tube (tubal ).? Tiny cysts have developed in the uterus instead of tissue (molar ).HOME CARE INSTRUCTIONSWatch your condition for any changes. The following actions may help to lessen any discomfort you are feeling:? Follow your health care provider's instructions for limiting your activity. If your health care provider orders bed rest, you may need to stay in bed and only get up to use the bathroom. However, your health care provider may allow you to continue light activity.? If needed, make plans for someone to help with your regular activities and responsibilities while you are on bed rest.? Keep track of the number of pads you use each day, how often you change pads, and how soaked (saturated) they are. Write this down.? Do not use tampons. Do not douche.? Do not have sexual intercourse or orgasms until approved by your health care provider.? If you pass any tissue from your vagina, save the tissue so you can show it to your health care provider.? Only take hkhj-hgd-ewscmaz or prescription medicines as directed by your health care provider. ? Do not take aspirin because it can make you bleed.? Keep all follow-up appointments as directed by your health care provider.SEEK MEDICAL CARE IF:? You have any vaginal bleeding during any part of your .? You have cramps or labor pains. ? You have a fever, not controlled by medicine. SEEK IMMEDIATE MEDICAL CARE IF:? You have severe cramps in your back or belly (abdomen).? You pass large clots or tissue from your vagina. ? Your bleeding increases.? You feel light-headed or weak, or you have fainting episodes.? You have chills.? You are leaking fluid or have a gush of fluid from your vagina.? You pass out while having a bowel movement. MAKE SURE YOU:? Understand these instructions.? Will watch your condition.? Will get help right away if you are not doing well or get worse.Document Released: 11/01/2005 Document Revised: 01/27/2014 Document Reviewed: 09/29/2013ExitCare? Patient Information ?2014 [employer]. This information is not intended to replace advice given to you by your health care provider. Make sure you discuss any questions you have with your health care provider.SARAH Broderick KERA , have received the following patient education materials/instructions and have verbalized understanding: Patient Education Materials: Bacterial Vaginosis, Fbmq-do-Zgiz; Vaginal Bleeding During , First Trimester Follow-up Instructions: With: Address: When: Venancio Riddle [address] [place] [address] Business (1) In 2 days 09/29/2016 With: Address: When: Mohinder Jurado [address] [place] [address] [facility] () In 3 days Prescriptions: [ampicillin (ampicillin 500 mg Cap)] Patient Signature Date Clinician/Nurse Signature _ Date 09/27/16 19:41:59 Normal [facility] Urinalysison 09-27-2016 BACTERIA:PRTHR:PT:URI NE SED:ORD:MICROSCOPY.LI GHT 3+ /HPF Abnormal Trace [facility] Comment on above: Performed By: #### 2 [id number], [id number] ####[facility] [address] [place] [address] Bilirubin Ql (U) Negative Normal Negative [facility] Comment on above: Performed By: #### 2 [id number], [id number] ####[facility] [address] [place] [address] COLOR:TYPE:PT:URINE:N OM:AUTO YELLOW Normal Yellow [facility] Comment on above: Performed By: #### 2 [id number], [id number] ####[address] [address] Erythrocytes (RBC) 4-20 Normal 0-3 [facility] Comment on above: Performed By: #### 2 [id number], [id number] ####[facility] [address] [place] [address] GLUCOSE:MCNC:PT:URINE :QN:TEST STRIP Negative Normal Negative [facility] Comment on above: Performed By: #### 2 [id number], [id number] ####[facility] [address] [place] [address] KETONES:MCNC:PT:URINE :QN:TEST STRIP Negative Normal Negative [facility] Comment on above: Performed By: #### 2 [id number], [id number] ####[facility] [address] [place] [address] LEUKOCYTES:PRTHR:PT:U RINE:ORD:AUTOMATED Negative Normal Negative [facility] Comment on above: Performed By: #### 2 [id number], [id number] ####[facility] [address] [place] [address] UA Spec Desc Clean Catch Normal [facility] Comment on above: Performed By: #### 2 [id number], [id number] ####[facility] [address] [place] [address] Urine, clarity SL CLOUDY Abnormal Clear [facility] Comment on above: Performed By: #### 2 [id number], [id number] ####[facility] [address] [place] [address] Urine, hemoglobin presence 3+ Abnormal Negative [facility] Comment on above: Performed By: #### 2 [id number], [id number] ####[facility] [address] [facility] [place] [address] Urine, leukocytes in sedmiment 0-5 Normal 0-5 [facility] Comment on above: Performed By: #### 2 [id number], [id number] ####[facility] [address] [place] [address] Urine, mucus presence in sediment 1+ Normal [facility] Comment on above: Performed By: #### 2 [id number], [id number] ####[facility] [address] [facility] [place] [address] Urine, nitrite presence Negative Normal Negative [facility] Comment on above: Performed By: #### 2 [id number], [id number] ####[facility] [address] [facility] [place] [address] Urine, pH 5.5 [pH] Invalid Interpretation Code 5.0-9.0 [facility] Comment on above: Performed By: #### 2 [id number], [id number] ####[facility] [address] [place] [address] Urine, protein Negative Normal Negative [facility] Comment on above: Performed By: #### 2 [id number], [id number] ####[facility] [address] [place] [address] Urine, specific gravity >=1.030 Invalid Interpretation Code 1.005-1.030 [facility] Comment on above: Performed By: #### 2 [id number], [id number] ####[facility] [address] [place] [address] Urine, squamous cells in sediment 9-10 Normal 0-2 [facility] Comment on above: Performed By: #### 2 [id number], [id number] ####[place] [address] [place] [address] Urine, urobilinogen 0.2 {George'U}/dL Normal 0.0-1.0 [facility] Comment on above: Performed By: #### 2 [id number], [id number] ####[facility] [address] [place] [address] C Cervicalon 09-16-2016 Cervical Culture MicrobiologyPROCEDUR E: Cervical Culture [R1] Cerv BODY SITE:COLLECTED DATE/TIME: 09/14/2016 14:49 EDT RECEIVED DATE/TIME: 09/14/2016 15:30 EDTSTART DATE/TIME: 09/14/2016 15:30 EDT FREE TEXT SOURCE:Jenny Mcguire DO, DO, ErinFINAL REPORTSFinal Report [] Verified Date/Time: 09/16/2016 08:26 EDT1+ Normal vaginal osvaldo isolatedSTAINSWet Prep Report [] Verified Date/Time: 09/14/2016 16:56 EDTNo Trichomonas vaginalis present No clue cells presentPerforming LocationsR1: This test was performed at: [facility], [address] [place] [address], [address] , Normal [facility] Comment on above: Performed By: #### 2 [id number], [id number] ####[facility] [address] [place] [address] Coding Summary.on 09-15-2016 Coding Summary. CODING DATE: 017 FINAL [facility] STATUS: Home (Routine DC) PAYOR: Self Pay APC DESCRIPTION 5522 Level 2 Imaging without Contrast 5024 Level 4 Type A ED Visits ADMIT DX: REASON FOR VISIT DX: R10.32 Left lower quadrant pain FINAL DX: PRINCIPAL: O26.891 Other specified related conditions, first trimester SECONDARY: R10.2 Pelvic and perineal pain PYMT PROC APC STAT DESCRIPTION DOCTOR NAME DATE NOTE: The code number assigned matches the documented diagnosis and / or procedure in the patient's chart. However, the narrative phrase printed from the coding software may appear abbreviated, or result in slightly different terminology. Revised Coded By: Emy Gutierrez Revised Date Saved: 09/15/2016 01:14 pm Normal [facility] ABO/Rhon 09-14-2016 ABO/Rh Positive Invalid Interpretation Code [facility] Comment on above: Order Comment: Patie nt in [place] Performed By: #### 2 [id number], [id number] ####[facility] [address] [place] [id number] Auto Diffon 09-14-2016 Basophils Auto #/vol (Bld) 0.0 E9/L Normal 0.0-0.2 [facility] Comment on above: Order Comment: Order Added by Discern Expert. Performed By: #### 2 [id number], [id number] ####[address] [address] Basophils Auto #/vol (Bld) 0.5 % Normal 0.0-2.0 [facility] Comment on above: Order Comment: Order Added by Discern Expert. Performed By: #### 2 [id number], [id number] ####[facility] [address] [place] [address] Eosinophils 0.1 E9/L Normal 0.0-0.5 [facility] Comment on above: Order Comment: Order Added by Discern Expert. Performed By: #### 2 [id number], [id number] ####[address] [place] [address] Eosinophils/100 leukocytes 1.0 % Normal 0.0-8.0 [facility] Comment on above: Order Comment: Order Added by Discern Expert. Performed By: #### 2 [id number], [id number] ####[facility] [address] [place] [address] Lymphocytes 2.0 E9/L Normal 1.0-4.0 [facility] Comment on above: Order Comment: Order Added by Arpit Expert. Performed By: #### 2 [id number], [id number] ####[facility] [address] [place] [address] Lymphocytes/100 leukocytes 20.6 % Normal 14.0-50.0 [facility] Comment on above: Order Comment: Order Added by Arpit Expert. Performed By: #### 2 [id number], [id number] ####[facility] [address] [place] [address] Monocytes 0.6 E9/L Normal 0.2-1.0 [facility] Comment on above: Order Comment: Order Added by Arpit Expert. Performed By: #### 2 [id number], [id number] ####[facility] [address] [place] [address], [place] [address] Monocytes/100 leukocytes 6.2 % Normal 4.0-14.0 [facility] Comment on above: Order Comment: Order Added by Arpit Expert. Performed By: #### 2 [id number], [id number] ####[facility] [address] [place] [address] Neutrophils 7.1 E9/L Normal 2.0-7.5 [facility] Comment on above: Order Comment: Order Added by Arpit Expert. Performed By: #### 2 [id number], [id number] ####[facility] [address] [place] [address] Neutrophils/100 leukocytes 71.7 % Normal 36.0-75.0 [facility] Comment on above: Order Comment: Order Added by Arpit Expert. Performed By: #### 2 [id number], [id number] ####[facility] [address] [place] [address] BhCG Quanton 09-14-2016 HCG.beta subunit Qn 7413 m[IU]/mL High 1-3 [facility] Comment on above: Order Comment: Patie nt in [place] Result Comment: GEST ATIONAL AGE HCG RANGE (mIU/mL) NON- <1-3 0.2-1 WEEKS 5-50 1-2 WEEKS 50-500 2-3 WEEKS 100-5,000 3-4 WEEKS 500-10,000 4-5 WEEKS 1,000-50,000 5-6 WEEKS 10,000-100,000 6-8 WEEKS 15,000-200,000 8-12 WEEKS 10,000-100,000 Performed By: #### 2 [id number], [id number] ####[address] [address] CBC w/ Auto Diffon 7 Erythrocyte distribution width Auto Ratio (RBC) 12.6 % Normal 10.9-14.2 [facility] Comment on above: Order Comment: Patie nt in [place] Performed By: #### 2 419297, [id number], [id number], [id number] ####[address] Erythrocytes (RBC) 4.7 E12/L Normal 4.3-5.9 [facility] Comment on above: Order Comment: Patie nt in [place] Performed By: #### 2 136436, 0918652, 6999422, [id number] ####[address] Hematocrit (HCT) 41.3 % Normal 34.0-46.0 [facility] Comment on above: Order Comment: Patie nt in [place] Performed By: #### 2 670855, 9993374, 1183757, [id number] ####[address] Hemoglobin mass conc (Bld) 13.9 g/dL Normal 12.0-16.0 [facility] Comment on above: Order Comment: Patie nt in [place] Performed By: #### 2 651728, 4345430, 6284511, [id number] ####[place] [address] MCH 29.9 pg Normal 27.0-34.0 [facility] Comment on above: Order Comment: Patie nt in [place] Performed By: #### 2 111629, 8007738, 2810990, [id number] ####[facility] [place] [address] MCHC mass conc (RBC) 33.8 g/dL Normal 31.4-39.3 [facility] Comment on above: Order Comment: Patie nt in [place] Performed By: #### 2 101744, 7101130, 2174391, [id number] ####[address] [address] MCV 88.6 fL Normal 80.0-100.0 [facility] Comment on above: Order Comment: Patie nt in [place] Performed By: #### 2 626400, 0117158, 6578328, 00612151 ####[address] Platelet mean volume (PMV) 8.7 fL Normal 6.4-10.8 [facility] Comment on above: Order Comment: Patie nt in [place] Performed By: #### 2 100029, 6695632, 1049439, [id number] ####[facility] [address] [place] [address] Platelets 238.0 E9/L Normal 150.0-500.0 [facility] Comment on above: Order Comment: Patie nt in [place] Performed By: #### 2 510647, 6232353, 8001294, 26644061 ####[address] [address] WBC (Leukocytes) 10.0 E9/L Normal 4.0-11.0 [facility] Comment on above: Order Comment: Patie nt in [place] Performed By: #### 2 578915, 1823769, 1580970, [id number] ####[address] [address] CMPon 09-14-2016 Alanine aminotransferase (ALT) 32 Int._Unit/L Normal 6-46 [facility] Comment on above: Order Comment: Patie nt in [place] Performed By: #### 2 1902050, [id number] ####[address] [address] Albumin 4.1 g/dL Normal 3.3-5.0 [facility] Comment on above: Order Comment: Patie nt in [place] Performed By: #### 2 6583511, [id number] ####[facility] [address] [place] [address] Albumin 1.2 g/dL Normal 1.1-2.2 [facility] Comment on above: Order Comment: Patie nt in [place] Performed By: #### 2 8798051, [id number] ####[facility] [address] [place] [address] Alkaline phosphatase (ALP) 69 Int._Unit/L Normal 21-98 [facility] Comment on above: Order Comment: Patie nt in [place] Performed By: #### 2 7355595, [id number] ####[facility] [address] [place] [address] Aspartate aminotransferase (AST) 29 Int._Unit/L Normal 5-43 [facility] Comment on above: Order Comment: Patie nt in [place] Performed By: #### 2 7802083, [id number] ####[facility] [address] [place] [address] Bilirubin (total) 0.5 mg/dL Normal 0.0-1.1 [facility] Comment on above: Order Comment: Patie nt in [place] Performed By: #### 2 9958818, [id number] ####[facility] [address] [place] [address] BUN/Creatinine Ratio 10 No Units Normal 10-20 [facility] Comment on above: Order Comment: Patie nt in [place] Performed By: #### 2 1498758, [id number] ####[facility] [address] [place] [address] Creatinine 0.7 mg/dL Normal 0.5-1.3 [facility] Comment on above: Order Comment: Patie nt in [place] Performed By: #### 2 0068526, [id number] ####[facility] [address] [place] [address] Globulin 3.4 g/dL Normal 1.4-4.0 [facility] Comment on above: Order Comment: Patie nt in [place] Performed By: #### 2 6954826, [id number] ####[facility] [address] [place] [address] Protein 7.5 g/dL Normal 6.0-7.8 [facility] Comment on above: Order Comment: Patie nt in [place] Performed By: #### 2 3691175, 11287381 ####[facility] [address] [place] [address] Urea nitrogen 7 mg/dL Normal 5-21 [facility] Comment on above: Order Comment: Patie nt in [place] Performed By: #### 2 2097234, 19446270 ####[facility] [address] [place] [address] Anion gap 11 mmol/L Normal 6-16 [facility] Comment on above: Order Comment: Patie nt in [place] Performed By: #### 2 7859745, [id number] ####[facility] [address] [place] [address] Calcium 8.9 mg/dL Normal 8.9-11.1 [facility] Comment on above: Order Comment: Patie nt in [place] Performed By: #### 2 4241279, 37073134 ####[facility] [address]orthe [place] [address] Chloride 106 mmol/L Normal 101-111 [facility] Comment on above: Order Comment: Patie nt in [place] Performed By: #### 2 5835169, [id number] ####[facility] [address] [place] [address] CO2 24 mmol/L Normal 21-31 [facility] Comment on above: Order Comment: Patie nt in [place] Performed By: #### 2 6170710, [id number] ####[facility] [address] [place] [address] Glucose mass conc 99 mg/dL Normal 55-199 [facility] Comment on above: Order Comment: Patie nt in [place] Result Comment: If t his glucose result represents a fasting glucose, interpretation should refer to the following reference range: 55-99 mg/dL Performed By: #### 2 9047918, [id number] ####[facility] [address] [place] [address] Potassium molar conc 3.7 mmol/L Normal 3.5-5.3 [facility] Comment on above: Order Comment: Patie nt in [place] Performed By: #### 2 3375032, [id number] ####[facility] [address] [place] [address] Sodium 137 mmol/L Normal 135-145 [facility] Comment on above: Order Comment: Patie nt in [place] Performed By: #### 2 0853437, [id number] ####[facility] [address] [place] [address] ED Clinical Summaryon 2016 ED Clinical Summary (Inserted Image. Jeimy ble to display) [address] [address] ED Clinical SummaryPerson Information Name: Wei SMITH[facility] Age: 21 Years : 1995 12:00 AM Sex: Female Language:East Timorese PCP: Mohinder Jurado III, DO Marital Status:Single Visit Id: Visit Reason:Abdominal pain; LEFT SIDE PAIN Speciality: Acuity: 3 Enc Type: Emergency Med Service: Emergency Arrival:09/14/2016 1:58 PM Discharge: 09/14/2016 4:42 PM LOS: 000 02:44 Checkin:09/14/2016 1:58 PM Checkout: 09/14/2016 4:42 PM Dispo Type: Home (Routine DC) EVENTS:Event Name Event Status Request Date/Time Start Date/Time Complete Date/Time Arrive Complete 09/14/2016 1:58 PM 09/14/2016 1:58 PM 09/14/2016 1:58 PM Document Home Meds Complete 09/14/2016 1:58 PM 09/14/2016 2:28 PM 09/14/2016 2:28 PM Triage Complete 09/14/2016 1:58 PM 09/14/2016 2:11 PM 09/14/2016 2:11 PM Bed Assign Complete 09/14/2016 2:03 PM 09/14/2016 2:03 PM 09/14/2016 2:[address] Exam Complete 09/14/2016 2:03 PM 09/14/2016 2:04 PM 09/14/2016 2:04 PM RN Exam Complete 09/14/2016 2:03 PM 09/14/2016 2:27 PM 09/14/2016 2:27 PM Registration Complete 09/14/2016 2:04 PM 09/14/2016 2:27 PM 09/14/2016 2:27 PM Pending Labs Complete 09/14/2016 2:15 PM 09/14/2016 2:44 PM Lab Complete 09/14/2016 2:15 PM 09/14/2016 2:44 PM Urine Collect Complete 09/14/2016 2:15 PM 09/14/2016 2:44 PM US Cancel 09/14/2016 2:24 PM 09/14/2016 3:17 PM Pending Labs Collected 09/14/2016 2:24 PM Lab Inlab 09/14/2016 2:24 PM Patient Care Request 09/14/2016 2:24 PM Reg Complete Request 09/14/2016 2:27 PM Reg Bed Request Complete 09/14/2016 2:27 PM 09/14/2016 2:27 PM 09/14/2016 2:27 PM US Complete 09/14/2016 3:17 PM 09/14/2016 3:53 PM Pending Labs Inlab 09/14/2016 3:28 PM Lab Inlab 09/14/2016 3:28 PM Blood Collect Request 09/14/2016 3:28 PM Pending Labs Complete 09/14/2016 3:28 PM 09/14/2016 4:39 PM Lab Complete 09/14/2016 3:28 PM 09/14/2016 4:39 PM US Complete 09/14/2016 3:30 PM 09/14/2016 3:53 PM Pending Labs Complete 09/14/2016 4:15 PM 09/14/2016 4:15 PM 09/14/2016 4:39 PM Lab Complete 09/14/2016 4:15 PM 09/14/2016 4:15 PM 09/14/2016 4:39 PM Discharge Complete 09/14/2016 4:17 PM 09/14/2016 4:42 PM 09/14/2016 4:42 PM Pending Labs Complete 09/14/2016 4:24 PM 09/14/2016 4:24 PM 09/14/2016 4:24 PM Pending Labs Complete 09/14/2016 4:26 PM 09/14/2016 4:26 PM 09/14/2016 4:26 PM Lab Complete 09/14/2016 4:26 PM 09/14/2016 4:26 PM 09/14/2016 4:26 PM Pending Labs Complete 09/14/2016 4:27 PM 09/14/2016 4:27 PM 09/14/2016 4:27 PM Transfer Complete 09/14/2016 4:42 PM 09/14/2016 4:42 PM 09/14/2016 4:42 PM ADDRESS:[address] [place] [phone] PHYS DOC NOTES: Patient: RICHARD SMITH Age: 21 years Sex: Female : 1995 Associated Diagnoses: None Author: Jenny Mcguire DO Basic Information Time seen: Date & time 09/14/16 14:16:00. History source: Patient. Arrival mode: Private vehicle. History limitation: None. Additional information: Chief Complaint from Nursing Triage Note : Chief Complaint 09/14/2016 14:03 EDT Chief Complaint pt presents with left lower abdominal pain for about 1 weeks with urine frequecny. pt stated LMP was end of July, pt denies any abnormal discharge. . History of Present Illness Pt 21 yo female presents with pelvic pain for the past week. Pt with mild left lower pelvic pain for the past week, worse this morning. Rates pain a 6/10. Constant, non-radiating and nothing makes it better or worse. No nausea, vomiting, diarrhea, constipation, vaginal discharge or bleeding. LMP end of July, menses have been irregular. Never been and does not suspect or STD. No abdominal wall trauma. Noted some urinary frequency, no bloody urine. No fevers, chills, sweats, back pain, chest pain, SOB, dizziness, or rashes. No home test, is sexually active. Review of Systems Complete ROS otherwise negative. Health Status Allergies: Allergic Reactions (Selected)Severity Not DocumentedExcedrin Migraine Geltab- Unable to move jaw.. Medications: (Selected) PrescriptionsPrescribed Naprosyn 500 mg Tab: 500 mg = 1 tab(s), Oral, BID, PRN for pain, # 20 tab(s), Refills(s) 0. history: Never . Past Medical/ Family/ Social History Medical history: ResolvedNone ([id number]): Resolved.. Surgical history: None (SNOMED CT 559133314).. Family history: No family history items have been selected or recorded.. Social history: Social & Psychosocial SykhxuYhkttvn92/20/2016 Risk Assessment: No RiskSubstance Abuse10/26/2015 Risk Assessment: Denies Substance FyfmoOzyionl62/20/2016 Risk Assessment: Denies Tobacco Use. Physical Examination Vital Signs Vital Signs 09/14/2016 14:03 EDT Temperature Oral 37.2 DegC Peripheral Pulse Rate 92 bpm Respiratory Rate 16 br/min Systolic Blood Pressure 126 mmHg Diastolic Blood Pressure 65 mmHg SpO2 99 % . Measurements 09/14/2016 14:03 EDT Weight Estimated 68.5 kg . Basic Oxygen Information 09/14/2016 14:03 EDT SpO2 99 % Oxygen Therapy Room air . General: Alert, no acute distress, Here with female friend. Skin: Warm, dry, intact, no rash. Neck: Full ROM. Cardiovascular: Regular rate and rhythm, No murmur, Normal peripheral perfusion, No edema. Respiratory: Lungs are clear to auscultation, respirations are non-labored. Gastrointestinal: Soft, Non distended, Normal bowel sounds, Tenderness: Mild, left lower quadrant, Guarding: Negative, Rebound: Negative. Genitourinary: Normal external genitalia, Cervix closed, scant white vaginal discharge. Mild left adnexal tenderness with palpation. No masses. . Musculoskeletal: Ambulatory. Neurological: Alert and oriented. Medical Decision Making Documents reviewed: Emergency department nurses' notes. Orders Launch Order Profile (Selected) Inpatient OrdersOrderedPelvic Exam Setup: 09/14/16 14:23:00 EDT, Stop date 09/14/16 14:23:00 EDTOrdered (Dispatched)ABO/Rh: Blood, Stat collect, 09/14/16 15:28:00 EDT, Stop date 09/14/16 15:28:00 EDT, Lab CollectCBC w/ Auto Diff: Blood, Stat collect, 09/14/16 15:28:00 EDT, Once, Stop date 09/14/16 15:28:00 EDT, Lab CollectCMP: Blood, Stat collect, 09/14/16 15:28:00 EDT, Stop date 09/14/16 15:28:00 EDT, Lab CollecthCG Quantitative: Blood, Stat collect, 09/14/16 15:28:00 EDT, Stop date 09/14/16 15:28:00 EDT, Lab CollectOrdered (Exam Ordered)US 1st Trimester: 09/14/16 14:23:00 EDT, Stat, Once, Transport Mode: Cart, Reason: Other (please specify), Reason: Abdominal Pain, No, pp_set_radiology_subspe cialty, EmergencyUS Transvaginal: 09/14/16 15:29:00 EDT, Routine, Transport Mode: Cart, Reason: Pain, No, pp_set_radiology_subspe cialtyOrdered (In Transit)Chlamydia/Gonoc occus, MARK ANTHONY: Cervical, Stat collect, 09/14/16 14:23:00 EDT, Stop date 09/14/16 14:24:00 EDT, Nurse collectOrdered (In-Lab)Cervical Culture: Cervical, Stat collect, 09/14/16 14:23:00 EDT, Stop date 09/14/16 14:24:00 EDT, Nurse collectCanceled (Exam Replaced)US Pelvis Non-OB Complete: 09/14/16 14:23:00 EDT, Stat, Once, Transport Mode: Cart, Reason: Other (please specify), Reason: Abdominal Pain, No, pp_set_radiology_subspe cialty, EmergencyCompletedBeta hCG Ql Urine: Urine, Stat collect, 09/14/16 14:15:00 EDT, Stop date 09/14/16 14:15:00 EDT, Nurse collectUrinalysis with Culture Reflex: Urine, Random Urine, Stat collect, 09/14/16 14:15:00 EDT, Stop date 09/14/16 14:15:00 EDT, Nurse collect. Results review: Lab results : Lab View 09/14/2016 14:20 EDT UA Spec Desc Random Urine UA Color Yellow UA Clarity Slightly Cloudy UA Spec Grav 1.015 UA pH 8.0 UA Protein Negative UA Glucose Negative UA Ketones Negative UA Bili Negative UA Blood Trace UA Nitrite Negative UA Urobilinogen 0.2 EU/dL UA Leuk Est Negative UA RBC 0-3 /HPF UA Squam Epithelial 5-8 /HPF UA WBC 0-5 /HPF UA Bacteria 1+ /HPF UA Amorph Jeni Present U beta hCG Ql Positive . Notes: Pelvis US: IUP, 5 weeks 2 days. Resolving right ovarian cyst. . Reexamination/ Reevaluation Vital signs Basic Oxygen Information 09/14/2016 14:03 EDT SpO2 99 % Oxygen Therapy Room air Pt notified of positive test. She refused Martinez cath for pelvic US and aware that if any acute surgical intervention needed that this could delay her care. She will drink for her US. 1604: ED tests discussed with Pt and her friend. Discussed and medication restrictions. Recommend follow up with Transportation Associate provided. Return to the ED if any further issues or concerns. Pt agreeable to plan of care. Impression and Plan Diagnosis Female pelvic pain (ZCE75-VW R10.2, Discharge, Medical) First trimester (HXW09-KH Z33.1, Discharge, Medical) Plan Condition: Improved, Stable. Disposition: Discharged: Time 09/14/16 16:11:00, to home. Prescriptions: Launch prescriptions Pharmacy: Multivitamins with Folic Acid 1 mg oral tablet (Prescribe): 1 tab(s), Oral, Daily, 30 tab(s), Refill(s) 0. Patient was given the following educational materials: Care, First Trimester of , Pelvic Pain, Female. Follow up with: ; Kaitlyn Perdomo Within 3 to 5 days Return to ED if symptoms worsen, Kaitlyn Perdomo Within 3 to 5 days Return to ED if symptoms worsen. Counseled: Patient, Family, Regarding diagnosis, Regarding diagnostic results, Regarding treatment plan, Patient indicated understanding of instructions. MEDICAL INFORMATION: Prescriptions Given:Prescription Display multivitamin, ( Multivitamins with Folic Acid 1 mg oral tablet) 1 tab(s), Oral, Daily, 30 tab(s), Refill(s) 0 PATIENT EDUCATION INFORMATION: Instructions:Pelvic Pain, Female; First Trimester of ; Care Follow up:With: Address: When: Kaitlyn Conor [address], [place] [address] Business (1) Within 3 to 5 days Comments: Return to ED if symptoms worsen DIAGNOSIS:Female pelvic pain; First trimester Normal [facility] ED Note-Physicianon 09-15-19 ED Note-Physician Patient: RICHARD SMITH Age: 21 years Sex: Female : 1995 Associated Diagnoses: None Author: Jenny Mcguire DO Basic Information Time seen: Date & time 09/14/16 14:16:00. History source: Patient. Arrival mode: Private vehicle. History limitation: None. Additional information: Chief Complaint from Nursing Triage Note : Chief Complaint 09/14/2016 14:03 EDT Chief Complaint pt presents with left lower abdominal pain for about 1 weeks with urine frequecny. pt stated LMP was end of July, pt denies any abnormal discharge. . History of Present Illness Pt 21 yo female presents with pelvic pain for the past week. Pt with mild left lower pelvic pain for the past week, worse this morning. Rates pain a 6/10. Constant, non-radiating and nothing makes it better or worse. No nausea, vomiting, diarrhea, constipation, vaginal discharge or bleeding. LMP end of July, menses have been irregular. Never been and does not suspect or STD. No abdominal wall trauma. Noted some urinary frequency, no bloody urine. No fevers, chills, sweats, back pain, chest pain, SOB, dizziness, or rashes. No home test, is sexually active. Review of Systems Complete ROS otherwise negative. Health Status Allergies: Allergic Reactions (Selected)Severity Not DocumentedExcedrin Migraine Geltab- Unable to move jaw.. Medications: (Selected) PrescriptionsPrescribed Naprosyn 500 mg Tab: 500 mg = 1 tab(s), Oral, BID, PRN for pain, # 20 tab(s), Refills(s) 0. history: Never . Past Medical/ Family/ Social History Medical history: ResolvedNone ([id number]): Resolved.. Surgical history: None (SNOMED CT [id number]).. Family history: No family history items have been selected or recorded.. Social history: Social & Psychosocial DvgvdyHeifouq68/20/2016 Risk Assessment: No RiskSubstance Abuse10/26/2015 Risk Assessment: Denies Substance XffisTfbgkjm27/20/2016 Risk Assessment: Denies Tobacco Use. Physical Examination Vital Signs Vital Signs 09/14/2016 14:03 EDT Temperature Oral 37.2 DegC Peripheral Pulse Rate 92 bpm Respiratory Rate 16 br/min Systolic Blood Pressure 126 mmHg Diastolic Blood Pressure 65 mmHg SpO2 99 % . Measurements 09/14/2016 14:03 EDT Weight Estimated 68.5 kg . Basic Oxygen Information 09/14/2016 14:03 EDT SpO2 99 % Oxygen Therapy Room air . General: Alert, no acute distress, Here with female friend. Skin: Warm, dry, intact, no rash. Neck: Full ROM. Cardiovascular: Regular rate and rhythm, No murmur, Normal peripheral perfusion, No edema. Respiratory: Lungs are clear to auscultation, respirations are non-labored. Gastrointestinal: Soft, Non distended, Normal bowel sounds, Tenderness: Mild, left lower quadrant, Guarding: Negative, Rebound: Negative. Genitourinary: Normal external genitalia, Cervix closed, scant white vaginal discharge. Mild left adnexal tenderness with palpation. No masses. . Musculoskeletal: Ambulatory. Neurological: Alert and oriented. Medical Decision Making Documents reviewed: Emergency department nurses' notes. Orders Launch Order Profile (Selected) Inpatient OrdersOrderedPelvic Exam Setup: 09/14/16 14:23:00 EDT, Stop date 09/14/16 14:23:00 EDTOrdered (Dispatched)ABO/Rh: Blood, Stat collect, 09/14/16 15:28:00 EDT, Stop date 09/14/16 15:28:00 EDT, Lab CollectCBC w/ Auto Diff: Blood, Stat collect, 09/14/16 15:28:00 EDT, Once, Stop date 09/14/16 15:28:00 EDT, Lab CollectCMP: Blood, Stat collect, 09/14/16 15:28:00 EDT, Stop date 09/14/16 15:28:00 EDT, Lab CollecthCG Quantitative: Blood, Stat collect, 09/14/16 15:28:00 EDT, Stop date 09/14/16 15:28:00 EDT, Lab CollectOrdered (Exam Ordered)US 1st Trimester: 09/14/16 14:23:00 EDT, Stat, Once, Transport Mode: Cart, Reason: Other (please specify), Reason: Abdominal Pain, No, pp_set_radiology_subspe cialty, EmergencyUS Transvaginal: 09/14/16 15:29:00 EDT, Routine, Transport Mode: Cart, Reason: Pain, No, pp_set_radiology_subspe cialtyOrdered (In Transit)Chlamydia/Gonoc occus, MARK ANTHONY: Cervical, Stat collect, 09/14/16 14:23:00 EDT, Stop date 09/14/16 14:24:00 EDT, Nurse collectOrdered (In-Lab)Cervical Culture: Cervical, Stat collect, 09/14/16 14:23:00 EDT, Stop date 09/14/16 14:24:00 EDT, Nurse collectCanceled (Exam Replaced)US Pelvis Non-OB Complete: 09/14/16 14:23:00 EDT, Stat, Once, Transport Mode: Cart, Reason: Other (please specify), Reason: Abdominal Pain, No, pp_set_radiology_subspe cialty, EmergencyCompletedBeta hCG Ql Urine: Urine, Stat collect, 09/14/16 14:15:00 EDT, Stop date 09/14/16 14:15:00 EDT, Nurse collectUrinalysis with Culture Reflex: Urine, Random Urine, Stat collect, 09/14/16 14:15:00 EDT, Stop date 09/14/16 14:15:00 EDT, Nurse collect. Results review: Lab results : Lab View 09/14/2016 14:20 EDT UA Spec Desc Random Urine UA Color Yellow UA Clarity Slightly Cloudy UA Spec Grav 1.015 UA pH 8.0 UA Protein Negative UA Glucose Negative UA Ketones Negative UA Bili Negative UA Blood Trace UA Nitrite Negative UA Urobilinogen 0.2 EU/dL UA Leuk Est Negative UA RBC 0-3 /HPF UA Squam Epithelial 5-8 /HPF UA WBC 0-5 /HPF UA Bacteria 1+ /HPF UA Amorph Jeni Present U beta hCG Ql Positive . Notes: Pelvis US: IUP, 5 weeks 2 days. Resolving right ovarian cyst. . Reexamination/ Reevaluation Vital signs Basic Oxygen Information 09/14/2016 14:03 EDT SpO2 99 % Oxygen Therapy Room air Pt notified of positive test. She refused Martinez cath for pelvic US and aware that if any acute surgical intervention needed that this could delay her care. She will drink for her US. 1604: ED tests discussed with Pt and her friend. Discussed and medication restrictions. Recommend follow up with [facility] provided. Return to the ED if any further issues or concerns. Pt agreeable to plan of care. Impression and Plan Diagnosis Female pelvic pain ([id number] R10.2, Discharge, Medical) First trimester ([id number] Z33.1, Discharge, Medical) Plan Condition: Improved, Stable. Disposition: Discharged: Time 09/14/16 16:11:00, to home. Prescriptions: [facility] prescriptions Pharmacy: Multivitamins with Folic Acid 1 mg oral tablet (Prescribe): 1 tab(s), Oral, Daily, 30 tab(s), Refill(s) 0. Patient was given the following educational materials: Care, First Trimester of , Pelvic Pain, Female. Follow up with: ; Kaitlyn Perdomo Within 3 to 5 days Return to ED if symptoms worsen, Kaitlyn Perdomo Within 3 to 5 days Return to ED if symptoms worsen. Counseled: Patient, Family, Regarding diagnosis, Regarding diagnostic results, Regarding treatment plan, Patient indicated understanding of instructions. [facility] Comment on above: Result Comment: Elec tronically Signed By: Jenny Mcguire DO\.br\Date and Time Signed: 09/14/16 16:17 EDT ED Patient Education Noteon 09-14-2016 ED Patient Education Note Patient Education Materials Follows:MedicinePelvic PainFemale pelvic pain can be caused by many different things and start from a variety of places. Pelvic pain refers to pain that is located in the lower half of the abdomen and between your hips. The pain may occur over a short period of time (acute) or may be reoccurring (chronic). The cause of pelvic pain may be related to disorders affecting the female reproductive organs (gynecologic), but it may also be related to the bladder, kidney stones, an intestinal complication, or muscle or skeletal problems. Getting help right away for pelvic pain is important, especially if there has been severe, sharp, or a sudden onset of unusual pain. It is also important to get help right away because some types of pelvic pain can be life threatening. CAUSESBelow are only some of the causes of pelvic pain. The causes of pelvic pain can be in one of several categories. ? Gynecologic. ? Pelvic inflammatory disease.? Sexually transmitted infection.? Ovarian cyst or a twisted ovarian ligament (ovarian torsion).? Uterine lining that grows outside the uterus (endometriosis).? Fibroids, cysts, or tumors.? Ovulation. ? .? that occurs outside the uterus (ectopic ).? Miscarriage. ? Labor.? Abruption of the placenta or ruptured uterus.? Infection.? Uterine infection (endometritis).? Bladder infection.? Diverticulitis.? Miscarriage related to a uterine infection (septic ).? Bladder.? Inflammation of the bladder (cystitis).? Kidney stone(s).? Gastrointestinal.? Constipation.? Diverticulitis.? Neurologic.? Trauma.? Feeling pelvic pain because of mental or emotional causes (psychosomatic). ? Cancers of the bowel or pelvis. EVALUATIONYour caregiver will want to take a careful history of your concerns. This includes recent changes in your health, a careful gynecologic history of your periods (menses), and a sexual history. Obtaining your family history and medical history is also important. Your caregiver may suggest a pelvic exam. A pelvic exam will help identify the location and severity of the pain. It also helps in the evaluation of which organ system may be involved. In order to identify the cause of the pelvic pain and be properly treated, your caregiver may order tests. These tests may include: ? A test.? Pelvic ultrasonography.? An X-ray exam of the abdomen.? A urinalysis or evaluation of vaginal discharge.? Blood tests. HOME CARE INSTRUCTIONS? Only take [id number] or prescription medicines for pain, discomfort, or fever as directed by your caregiver. ? Rest as directed by your caregiver. ? Eat a balanced diet. ? Drink enough fluids to make your urine clear or pale yellow, or as directed. ? Avoid sexual intercourse if it causes pain. ? Apply warm or cold compresses to the lower abdomen depending on which one helps the pain. ? Avoid stressful situations. ? Keep a journal of your pelvic pain. Write down when it started, where the pain is located, and if there are things that seem to be associated with the pain, such as food or your menstrual cycle.? Follow up with your caregiver as directed. SEEK MEDICAL CARE IF:? Your medicine does not help your pain.? You have abnormal vaginal discharge. SEEK IMMEDIATE MEDICAL CARE IF:? You have heavy bleeding from the vagina. ? Your pelvic pain increases. ? You feel light-headed or faint. ? You have chills. ? You have pain with urination or blood in your urine. ? You have uncontrolled diarrhea or vomiting. ? You have a fever or persistent symptoms for more than 3 days.? You have a fever and your symptoms suddenly get worse. ? You are being physically or sexually abused. MAKE SURE YOU:? Understand these instructions.? Will watch your condition.? Will get help if you are not doing well or get worse.Document Released: 12/19/2004 Document Revised: 06/08/2014 Document Reviewed: 05/13/2012ExitCare? Patient Information ?2014 [employer]. This information is not intended to replace advice given to you by your health care provider. Make sure you discuss any questions you have with your health care provider.Return if you have any problems or concerns. Call the [facility] provided for a follow up appointment. First Trimester of PregnancyThe first trimester of is from week 1 until the end of week 12 (months 1 through 3). A week after a sperm fertilizes an egg, the egg will implant on the wall of the uterus. This embryo will begin to develop into a baby. Genes from you and your partner are forming the baby. The male genes determine whether the baby is a boy or a girl. At 6?8 weeks, the eyes and face are formed, and the heartbeat can be seen on ultrasound. At the end of 12 weeks, all the baby's organs are formed. Now that you are , you will want to do everything you can to have a healthy baby. Two of the most important things are to get good care and to follow your health care provider's instructions. care is all the medical care you receive before the baby's . This care will help prevent, find, and treat any problems during the and childbirth. BODY CHANGESYour body goes through many changes during . The changes vary from woman to woman. ? You may gain or lose a couple of pounds at first. ? You may feel sick to your stomach (nauseous) and throw up (vomit). If the vomiting is uncontrollable, call your health care provider. ? You may tire easily.? You may develop headaches that can be relieved by medicines approved by your health care provider.? You may urinate more often. Painful urination may mean you have a bladder infection.? You may develop heartburn as a result of your .? You may develop constipation because certain hormones are causing the muscles that push waste through your intestines to slow down. ? You may develop hemorrhoids or swollen, bulging veins (varicose veins). ? Your breasts may begin to grow larger and become tender. Your nipples may stick out more, and the tissue that surrounds them (areola) may become darker.? Your gums may bleed and may be sensitive to brushing and flossing. ? Dark spots or blotches (chloasma, mask of ) may develop on your face. This will likely fade after the baby is born. ? Your menstrual periods will stop.? You may have a loss of appetite.? You may develop cravings for certain kinds of food.? You may have changes in your emotions from day to day, such as being excited to be or being concerned that something may go wrong with the and baby.? You may have more vivid and strange dreams. ? You may have changes in your hair. These can include thickening of your hair, rapid growth, and changes in texture. Some women also have hair loss during or after , or hair that feels dry or thin. Your hair will most likely return to normal after your baby is born. WHAT TO EXPECT AT YOUR VISITSDuring a routine visit:? You will be weighed to make sure you and the baby are growing normally.? Your blood pressure will be taken.? Your abdomen will be measured to track your baby's growth.? The heartbeat will be listened to starting around week 10 or 12 of your .? Test results from any previous visits will be discussed.Your health care provider may ask you:? How you are feeling.? If you are feeling the baby move.? If you have had any abnormal symptoms, such as leaking fluid, bleeding, severe headaches, or abdominal cramping.? If you have any questions.Other tests that may be performed during your first trimester include:? Blood tests to find your blood type and to check for the presence of any previous infections. They will also be used to check for low iron levels (anemia) and Rh antibodies. Later in the , blood tests for diabetes will be done along with other tests if problems develop.? Urine tests to check for infections, diabetes, or protein in the urine.? An ultrasound to confirm the proper growth and development of the baby. ? An amniocentesis to check for possible genetic problems.? screens for spina bifida and Down syndrome.? You may need other tests to make sure you and the baby are doing well.HOME CARE INSTRUCTIONSMedicines? Follow your health care provider's instructions regarding medicine use. Specific medicines may be either safe or unsafe to take during . ? Take your vitamins as directed. ? If you develop constipation, try taking a stool softener if your health care provider approves. Diet? Eat regular, well-balanced meals. Choose a variety of foods, such as meat or vegetable-based protein, fish, milk and low-fat dairy products, vegetables, fruits, and whole grain breads and cereals. Your health care provider will help you determine the amount of weight gain that is right for you. ? Avoid raw meat and uncooked cheese. These carry germs that can cause defects in the baby. ? Eating four or five small meals rather than three large meals a day may help relieve nausea and vomiting. If you start to feel nauseous, eating a few soda crackers can be helpful. Drinking liquids between meals instead of during meals also seems to help nausea and vomiting. ? If you develop constipation, eat more high-fiber foods, such as fresh vegetables or fruit and whole grains. Drink enough fluids to keep your urine clear or pale yellow. Activity and Exercise? Exercise only as directed by your health care provider. Exercising will help you:? Control your weight.? Stay in shape.? Be prepared for labor and delivery.? Experiencing pain or cramping in the lower abdomen or low back is a good sign that you should stop exercising. Check with your health care provider before continuing normal exercises. ? Try to avoid standing for long periods of time. Move your legs often if you must conference services coordinator one place for a long time.? Avoid heavy lifting. ? Wear low-heeled shoes, and practice good posture. ? You may continue to have sex unless your health care provider directs you otherwise. Relief of Pain or Discomfort? Wear a good support bra for breast tenderness. ?? Take warm sitz baths to soothe any pain or discomfort caused by hemorrhoids. Use hemorrhoid cream if your health care provider approves. ?? Rest with your legs elevated if you have leg cramps or low back pain. ? If you develop varicose veins in your legs, wear support hose. Elevate your feet for 15 minutes, 3?4 times a day. Limit salt in your diet. Care? Schedule your visits by the twelfth week of . They are usually scheduled monthly at first, then more often in the last 2 months before delivery. ? Write down your questions. Take them to your visits. ? Keep all your visits as directed by your health care provider. Safety? Wear your seat belt at all times when driving. ? Make a list of emergency phone numbers, including numbers for family, friends, the hospital, and police and fire departments. General Tips? Ask your health care provider for a referral to a local education class. Begin classes no later than at the beginning of month 6 of your .? Ask for help if you have counseling or nutritional needs during . Your health care provider can offer advice or refer you to specialists for help with various needs. ? Do not use hot tubs, steam rooms, or saunas. ? Do not douche or use tampons or scented sanitary pads. ? Do not cross your legs for long periods of time. ? Avoid cat litter boxes and soil used by cats. These carry germs that can cause defects in the baby and possibly loss of the fetus by miscarriage or stillbirth. ? Avoid all smoking, herbs, alcohol, and medicines not prescribed by your health care provider. Chemicals in these affect the formation and growth of the baby. ? Schedule a dentist appointment. At home, brush your teeth with a soft toothbrush and be gentle when you floss. SEEK MEDICAL CARE IF:? You have dizziness. ? You have mild pelvic cramps, pelvic pressure, or nagging pain in the abdominal area.? You have persistent nausea, vomiting, or diarrhea. ? You have a bad smelling vaginal discharge.? You have pain with urination. ? You notice increased swelling in your face, hands, legs, or ankles. SEEK IMMEDIATE MEDICAL CARE IF:? You have a fever.? You are leaking fluid from your vagina.? You have spotting or bleeding from your vagina. ? You have severe abdominal cramping or pain. ? You have rapid weight gain or loss.? You vomit blood or material that looks like coffee grounds. ? You are exposed to [place] measles and have never had them.? You are exposed to fifth disease or chickenpox.? You develop a severe headache.? You have shortness of breath.? You have any kind of trauma, such as from a fall or a car accident.Document Released: 01/16/2002 Document Revised: 06/08/2014 Document Reviewed: 12/02/2013ExitCare? Patient Information ?2014 [employer]. This information is not intended to replace advice given to you by your health care provider. Make sure you discuss any questions you have with your health care provider. CareWHAT IS CARE? care means health care during your , before your baby is born. It is very important to take care of yourself and your baby during your by: ? Getting early care. If you know you are , or think you might be , call your health care provider as soon as possible. Schedule a visit for a exam. ? Getting regular care. Follow your health care provider's schedule for blood and other necessary tests. Do not miss appointments. ? Doing everything you can to keep yourself and your baby healthy during your . ? Getting complete care. care should include evaluation of the medical, dietary, educational, psychological, and social needs of you and your significant other. The medical and genetic history of your family and the family of your baby's father should be discussed with your health care provider.? Discussing with your health care provider:? Prescription, wnvu-pjo-japqsaq, and herbal medicines that you take.? Any history of substance abuse, alcohol use, smoking, and illegal drug use.? Any history of domestic abuse and violence.? Immunizations you have received.? Your nutrition and diet.? The amount of exercise you do.? Any environmental and occupational hazards to which you are exposed.? History of sexually transmitted infections for both you and your partner. ? Previous pregnancies you have had.WHY IS CARE SO IMPORTANT?By regularly seeing your health care provider, you help ensure that problems can be identified early so that they can be treated as soon as possible. Other problems might be prevented. Many studies have shown that early and regular care is important for the health of mothers and their babies. HOW CAN I TAKE CARE OF MYSELF WHILE I AM ?Here are ways to take care of yourself and your baby: ? Start or continue taking your multivitamin with 400 micrograms (mcg) of folic acid every day. ? Get early and regular care. It is very important to see a health care provider during your . Your health care provider will check at each visit to make sure that you and your baby are healthy. If there are any problems, action can be taken right away to help you and your baby. ? Eat a healthy diet that includes:? Fruits.? Vegetables.? Foods low in saturated fat.? Whole grains. ? Calcium-rich foods, such as milk, yogurt, and hard cheeses.? Drink 6?8 glasses of liquids a day.? Unless your health care provider tells you not to, try to be physically active for 30 minutes, most days of the week. If you are pressed for time, you can get your activity in through 10-minute segments, three times a day.? Do not smoke, drink alcohol, or use drugs. These can cause long-term damage to your baby. Talk with your health care provider about steps to take to stop smoking. Talk with a member of your patricio community, a counselor, a trusted friend, or your health care provider if you are concerned about your alcohol or drug use.? Ask your health care provider before taking any medicine, even qokg-gaj-wriaaww medicines. Some medicines are not safe to take during . ? Get plenty of rest and sleep.? Avoid hot tubs and saunas during . ? Do not have X-rays taken unless absolutely necessary and with the recommendation of your health care provider. A lead shield can be placed on your abdomen to protect your baby when X-rays are taken in other parts of your body. ? Do not empty the cat litter when you are . It may contain a parasite that causes an infection called toxoplasmosis, which can cause defects. Also, use gloves when working in garden areas used by cats. ? Do not eat uncooked or undercooked meats or fish. ? Do not eat soft, mold-ripened cheeses (Brie, Camembert, and chevre) or soft, blue-veined cheese ([place]orran blue and Roquefort). ? Stay away from toxic chemicals like:? Insecticides.? Solvents (some plumbers and top helpers or paint thinners).? Lead.? Mercury. ? Sexual intercourse may continue until the end of the , unless you have a medical problem or there is a problem with the and your health care provider tells you not to.? Do not wear high-heel shoes, especially during the second half of the . You can lose your balance and fall.? Do not take long trips, unless absolutely necessary. Be sure to see your health care provider before going on the trip.? Do not sit in one position for more than 2 hours when on a trip.? Take a copy of your medical records when going on a trip. Know where a hospital is located in the city you are visiting, in case of an emergency.? Most dangerous household products will have warnings on their labels. Ask your health care provider about products if you are unsure. ? Limit or eliminate your caffeine intake from coffee, tea, sodas, medicines, and chocolate. ? Many women continue working through . Staying active might help you stay healthier. If you have a question about the safety or the hours you work at your particular job, talk with your health care provider. ? Get informed:? Read books.? Watch videos.? Go to childbirth classes for you and your significant other. ? Talk with experienced moms. ? Ask your health care provider about childbirth education classes for you and your partner. Classes can help you and your partner prepare for the of your baby. ? Ask about a baby doctor (scrap hoist operator) and methods and pain medicine for labor, delivery, and possible delivery.HOW OFTEN SHOULD I SEE MY HEALTH CARE PROVIDER DURING ?Your health care provider will give you a schedule for your visits. You will have visits more often as you get closer to the end of your . An average lasts about 40 weeks. A typical schedule includes visiting your health care provider: ? About once each month during your first 6 months of . ? Every 2 weeks during the next 2 months. ? Weekly in the last month, until the delivery date. Your health care provider will probably want to see you more often if:? You are older than 35 years. ? Your is high risk because you have certain health problems or problems with the , such as:? Diabetes.? High blood pressure.? The baby is not growing on schedule, according to the dates of the .Your health care provider will do special tests to make sure you and your baby are not having any serious problems.WHAT HAPPENS DURING VISITS?? At your first visit, your health care provider will do a physical exam and talk to you about your health history and the health history of your partner and your family. Your health care provider will be able to tell you what date to expect your baby to be born on.? Your first physical exam will include checks of your blood pressure, measurements of your height and weight, and an exam of your pelvic organs. Your health care provider will do a Pap test if you have not had one recently and will do cultures of your cervix to make sure there is no infection.? At each visit, there will be tests of your blood, urine, blood pressure, weight, and the progress of the baby will be checked.? At your later visits, your health care provider will check how you are doing and how your baby is developing. You may have a number of tests done as your progresses.? Ultrasound exams are often used to check on your baby's growth and health.? You may have more urine and blood tests, as well as special tests, if needed. These may include amniocentesis to examine fluid in the sac, stress tests to check how the baby responds to contractions, or a biophysical profile to measure your baby's well-being. Your health care provider will explain the tests and why they are necessary. ? You should be tested for high blood sugar (gestational diabetes) between the 24th and 28th weeks of your . ? You should discuss with your health care provider your plans to breastfeed or bottle-feed your baby. ? Each visit is also a chance for you to learn about staying healthy during and to ask questions. Document Released: 01/25/2004 Document Revised: 01/27/2014 Document Reviewed: 04/08/2014ExitCare? Patient Information ?2015 [employer], [employer]. This information is not intended to replace advice given to you by your health care provider. Make sure you discuss any questions you have with your health care provider. [facility] ED Patient Summaryon 017 ED Patient Summary (Inserted Image. Jeimy ble to display) [place] [id number] Patient Discharge Instructions Person Information Name: RICHARD SMITH Age: 21 Years Date: 09/14/2016 1:58 PMDischarge Diagnosis: Female pelvic pain; First trimester Primary Care Physician: Mohinder Jurado III, DO Provider InformationPrimary Provider: Abby Mcguire DO Public Health Clinical Nurse Specialist:None The exam and treatment you received in the Emergency Department were for an urgent problem and are not intended as complete care. It is important that you follow up with a doctor, nurse practitioner, or physician?s front desk assistant for ongoing care. If your symptoms become worse or you do not improve as expected and you are unable to reach your usual health care provider, you should return to the Emergency Department. We are available 24 hours a day. RICHARD SMITH has been given the following list of patient education materials, prescriptions and follow-up instructions: Follow-up Instructions:With: Address: When: Kaitlyn Perdomo [address], [place] [address] Business (1) Within 3 to 5 days Comments: Return to ED if symptoms worsen In the event that this physician does not participate in your insurance network, please consult with your insurance company to find a nearby participating provider. Patient Education Materials:Pelvic Pain, Female; First Trimester of ; Care Medications Given:Medication Dose Route No medications found. Medication Information:New MedicationsPrinted Prescriptionsmultivitam in, ( Multivitamins with Folic Acid 1 mg oral tablet) 1 Tabs By Mouth every day. Refills: 0.Medications to Continue with No ChangesOther Medicationsnaproxen (Naprosyn 500 mg Tab) 1 Tabs By Mouth 2 times a day as needed for pain. Refills: 0.Comment: Pharmacy Information: Thank you for choosing [facility] P atient Education Materials: Pelvic PainFemale pelvic pain can be caused by many different things and start from a variety of places. Pelvic pain refers to pain that is located in the lower half of the abdomen and between your hips. The pain may occur over a short period of time (acute) or may be reoccurring (chronic). The cause of pelvic pain may be related to disorders affecting the female reproductive organs (gynecologic), but it may also be related to the bladder, kidney stones, an intestinal complication, or muscle or skeletal problems. Getting help right away for pelvic pain is important, especially if there has been severe, sharp, or a sudden onset of unusual pain. It is also important to get help right away because some types of pelvic pain can be life threatening. CAUSESBelow are only some of the causes of pelvic pain. The causes of pelvic pain can be in one of several categories. ? Gynecologic. ? Pelvic inflammatory disease.? Sexually transmitted infection.? Ovarian cyst or a twisted ovarian ligament (ovarian torsion).? Uterine lining that grows outside the uterus (endometriosis).? Fibroids, cysts, or tumors.? Ovulation. ? .? that occurs outside the uterus (ectopic ).? Miscarriage. ? Labor.? Abruption of the placenta or ruptured uterus.? Infection.? Uterine infection (endometritis).? Bladder infection.? Diverticulitis.? Miscarriage related to a uterine infection (septic ).? Bladder.? Inflammation of the bladder (cystitis).? Kidney stone(s).? Gastrointestinal.? Constipation.? Diverticulitis.? Neurologic.? Trauma.? Feeling pelvic pain because of mental or emotional causes (psychosomatic). ? Cancers of the bowel or pelvis. EVALUATIONYour caregiver will want to take a careful history of your concerns. This includes recent changes in your health, a careful gynecologic history of your periods (menses), and a sexual history. Obtaining your family history and medical history is also important. Your caregiver may suggest a pelvic exam. A pelvic exam will help identify the location and severity of the pain. It also helps in the evaluation of which organ system may be involved. In order to identify the cause of the pelvic pain and be properly treated, your caregiver may order tests. These tests may include: ? A test.? Pelvic ultrasonography.? An X-ray exam of the abdomen.? A urinalysis or evaluation of vaginal discharge.? Blood tests. HOME CARE INSTRUCTIONS? Only take jdwb-wxf-bzjdwyt or prescription medicines for pain, discomfort, or fever as directed by your caregiver. ? Rest as directed by your caregiver. ? Eat a balanced diet. ? Drink enough fluids to make your urine clear or pale yellow, or as directed. ? Avoid sexual intercourse if it causes pain. ? Apply warm or cold compresses to the lower abdomen depending on which one helps the pain. ? Avoid stressful situations. ? Keep a journal of your pelvic pain. Write down when it started, where the pain is located, and if there are things that seem to be associated with the pain, such as food or your menstrual cycle.? Follow up with your caregiver as directed. SEEK MEDICAL CARE IF:? Your medicine does not help your pain.? You have abnormal vaginal discharge. SEEK IMMEDIATE MEDICAL CARE IF:? You have heavy bleeding from the vagina. ? Your pelvic pain increases. ? You feel light-headed or faint. ? You have chills. ? You have pain with urination or blood in your urine. ? You have uncontrolled diarrhea or vomiting. ? You have a fever or persistent symptoms for more than 3 days.? You have a fever and your symptoms suddenly get worse. ? You are being physically or sexually abused. MAKE SURE YOU:? Understand these instructions.? Will watch your condition.? Will get help if you are not doing well or get worse.Document Released: 12/19/2004 Document Revised: 06/08/2014 Document Reviewed: 05/13/2012ExitCare? Patient Information ?2014 [employer]. This information is not intended to replace advice given to you by your health care provider. Make sure you discuss any questions you have with your health care provider.Return if you have any problems or concerns. Call the Transportation Associate provided for a follow up appointment. First Trimester of PregnancyThe first trimester of is from week 1 until the end of week 12 (months 1 through 3). A week after a sperm fertilizes an egg, the egg will implant on the wall of the uterus. This embryo will begin to develop into a baby. Genes from you and your partner are forming the baby. The male genes determine whether the baby is a boy or a girl. At 6?8 weeks, the eyes and face are formed, and the heartbeat can be seen on ultrasound. At the end of 12 weeks, all the baby's organs are formed. Now that you are , you will want to do everything you can to have a healthy baby. Two of the most important things are to get good care and to follow your health care provider's instructions. care is all the medical care you receive before the baby's . This care will help prevent, find, and treat any problems during the and childbirth. BODY CHANGESYour body goes through many changes during . The changes vary from woman to woman. ? You may gain or lose a couple of pounds at first. ? You may feel sick to your stomach (nauseous) and throw up (vomit). If the vomiting is uncontrollable, call your health care provider. ? You may tire easily.? You may develop headaches that can be relieved by medicines approved by your health care provider.? You may urinate more often. Painful urination may mean you have a bladder infection.? You may develop heartburn as a result of your .? You may develop constipation because certain hormones are causing the muscles that push waste through your intestines to slow down. ? You may develop hemorrhoids or swollen, bulging veins (varicose veins). ? Your breasts may begin to grow larger and become tender. Your nipples may stick out more, and the tissue that surrounds them (areola) may become darker.? Your gums may bleed and may be sensitive to brushing and flossing. ? Dark spots or blotches (chloasma, mask of ) may develop on your face. This will likely fade after the baby is born. ? Your menstrual periods will stop.? You may have a loss of appetite.? You may develop cravings for certain kinds of food.? You may have changes in your emotions from day to day, such as being excited to be or being concerned that something may go wrong with the and baby.? You may have more vivid and strange dreams. ? You may have changes in your hair. These can include thickening of your hair, rapid growth, and changes in texture. Some women also have hair loss during or after , or hair that feels dry or thin. Your hair will most likely return to normal after your baby is born. WHAT TO EXPECT AT YOUR VISITSDuring a routine visit:? You will be weighed to make sure you and the baby are growing normally.? Your blood pressure will be taken.? Your abdomen will be measured to track your baby's growth.? The heartbeat will be listened to starting around week 10 or 12 of your .? Test results from any previous visits will be discussed.Your health care provider may ask you:? How you are feeling.? If you are feeling the baby move.? If you have had any abnormal symptoms, such as leaking fluid, bleeding, severe headaches, or abdominal cramping.? If you have any questions.Other tests that may be performed during your first trimester include:? Blood tests to find your blood type and to check for the presence of any previous infections. They will also be used to check for low iron levels (anemia) and Rh antibodies. Later in the , blood tests for diabetes will be done along with other tests if problems develop.? Urine tests to check for infections, diabetes, or protein in the urine.? An ultrasound to confirm the proper growth and development of the baby. ? An amniocentesis to check for possible genetic problems.? screens for spina bifida and Down syndrome.? You may need other tests to make sure you and the baby are doing well.HOME CARE INSTRUCTIONSMedicines? Follow your health care provider's instructions regarding medicine use. Specific medicines may be either safe or unsafe to take during . ? Take your vitamins as directed. ? If you develop constipation, try taking a stool softener if your health care provider approves. Diet? Eat regular, well-balanced meals. Choose a variety of foods, such as meat or vegetable-based protein, fish, milk and low-fat dairy products, vegetables, fruits, and whole grain breads and cereals. Your health care provider will help you determine the amount of weight gain that is right for you. ? Avoid raw meat and uncooked cheese. These carry germs that can cause defects in the baby. ? Eating four or five small meals rather than three large meals a day may help relieve nausea and vomiting. If you start to feel nauseous, eating a few soda crackers can be helpful. Drinking liquids between meals instead of during meals also seems to help nausea and vomiting. ? If you develop constipation, eat more high-fiber foods, such as fresh vegetables or fruit and whole grains. Drink enough fluids to keep your urine clear or pale yellow. Activity and Exercise? Exercise only as directed by your health care provider. Exercising will help you:? Control your weight.? Stay in shape.? Be prepared for labor and delivery.? Experiencing pain or cramping in the lower abdomen or low back is a good sign that you should stop exercising. Check with your health care provider before continuing normal exercises. ? Try to avoid standing for long periods of time. Move your legs often if you must conference services coordinator one place for a long time.? Avoid heavy lifting. ? Wear low-heeled shoes, and practice good posture. ? You may continue to have sex unless your health care provider directs you otherwise. Relief of Pain or Discomfort? Wear a good support bra for breast tenderness. ?? Take warm sitz baths to soothe any pain or discomfort caused by hemorrhoids. Use hemorrhoid cream if your health care provider approves. ?? Rest with your legs elevated if you have leg cramps or low back pain. ? If you develop varicose veins in your legs, wear support hose. Elevate your feet for 15 minutes, 3?4 times a day. Limit salt in your diet. Care? Schedule your visits by the twelfth week of . They are usually scheduled monthly at first, then more often in the last 2 months before delivery. ? Write down your questions. Take them to your visits. ? Keep all your visits as directed by your health care provider. Safety? Wear your seat belt at all times when driving. ? Make a list of emergency phone numbers, including numbers for family, friends, the hospital, and police and fire departments. General Tips? Ask your health care provider for a referral to a local education class. Begin classes no later than at the beginning of month 6 of your .? Ask for help if you have counseling or nutritional needs during . Your health care provider can offer advice or refer you to specialists for help with various needs. ? Do not use hot tubs, steam rooms, or saunas. ? Do not douche or use tampons or scented sanitary pads. ? Do not cross your legs for long periods of time. ? Avoid cat litter boxes and soil used by cats. These carry germs that can cause defects in the baby and possibly loss of the fetus by miscarriage or stillbirth. ? Avoid all smoking, herbs, alcohol, and medicines not prescribed by your health care provider. Chemicals in these affect the formation and growth of the baby. ? Schedule a dentist appointment. At home, brush your teeth with a soft toothbrush and be gentle when you floss. SEEK MEDICAL CARE IF:? You have dizziness. ? You have mild pelvic cramps, pelvic pressure, or nagging pain in the abdominal area.? You have persistent nausea, vomiting, or diarrhea. ? You have a bad smelling vaginal discharge.? You have pain with urination. ? You notice increased swelling in your face, hands, legs, or ankles. SEEK IMMEDIATE MEDICAL CARE IF:? You have a fever.? You are leaking fluid from your vagina.? You have spotting or bleeding from your vagina. ? You have severe abdominal cramping or pain. ? You have rapid weight gain or loss.? You vomit blood or material that looks like coffee grounds. ? You are exposed to [place] measles and have never had them.? You are exposed to fifth disease or chickenpox.? You develop a severe headache.? You have shortness of breath.? You have any kind of trauma, such as from a fall or a car accident.Document Released: 01/16/2002 Document Revised: 06/08/2014 Document Reviewed: 12/02/2013ExitCare? Patient Information ?2015 [employer]. This information is not intended to replace advice given to you by your health care provider. Make sure you discuss any questions you have with your health care provider. CareWHAT IS CARE? care means health care during your , before your baby is born. It is very important to take care of yourself and your baby during your by: ? Getting early care. If you know you are , or think you might be , call your health care provider as soon as possible. Schedule a visit for a exam. ? Getting regular care. Follow your health care provider's schedule for blood and other necessary tests. Do not miss appointments. ? Doing everything you can to keep yourself and your baby healthy during your . ? Getting complete care. care should include evaluation of the medical, dietary, educational, psychological, and social needs of you and your significant other. The medical and genetic history of your family and the family of your baby's father should be discussed with your health care provider.? Discussing with your health care provider:? Prescription, jous-pdu-rnnucnb, and herbal medicines that you take.? Any history of substance abuse, alcohol use, smoking, and illegal drug use.? Any history of domestic abuse and violence.? Immunizations you have received.? Your nutrition and diet.? The amount of exercise you do.? Any environmental and occupational hazards to which you are exposed.? History of sexually transmitted infections for both you and your partner. ? Previous pregnancies you have had.WHY IS CARE SO IMPORTANT?By regularly seeing your health care provider, you help ensure that problems can be identified early so that they can be treated as soon as possible. Other problems might be prevented. Many studies have shown that early and regular care is important for the health of mothers and their babies. HOW CAN I TAKE CARE OF MYSELF WHILE I AM ?Here are ways to take care of yourself and your baby: ? Start or continue taking your multivitamin with 400 micrograms (mcg) of folic acid every day. ? Get early and regular care. It is very important to see a health care provider during your . Your health care provider will check at each visit to make sure that you and your baby are healthy. If there are any problems, action can be taken right away to help you and your baby. ? Eat a healthy diet that includes:? Fruits.? Vegetables.? Foods low in saturated fat.? Whole grains. ? Calcium-rich foods, such as milk, yogurt, and hard cheeses.? Drink 6?8 glasses of liquids a day.? Unless your health care provider tells you not to, try to be physically active for 30 minutes, most days of the week. If you are pressed for time, you can get your activity in through 10-minute segments, three times a day.? Do not smoke, drink alcohol, or use drugs. These can cause long-term damage to your baby. Talk with your health care provider about steps to take to stop smoking. Talk with a member of your patricio community, a counselor, a trusted friend, or your health care provider if you are concerned about your alcohol or drug use.? Ask your health care provider before taking any medicine, even xcsv-lrg-nyyjvhh medicines. Some medicines are not safe to take during . ? Get plenty of rest and sleep.? Avoid hot tubs and saunas during . ? Do not have X-rays taken unless absolutely necessary and with the recommendation of your health care provider. A lead shield can be placed on your abdomen to protect your baby when X-rays are taken in other parts of your body. ? Do not empty the cat litter when you are . It may contain a parasite that causes an infection called toxoplasmosis, which can cause defects. Also, use gloves when working in garden areas used by cats. ? Do not eat uncooked or undercooked meats or fish. ? Do not eat soft, mold-ripened cheeses (Brie, Camembert, and chevre) or soft, blue-veined cheese (Andorran blue and Roquefort). ? Stay away from toxic chemicals like:? Insecticides.? Solvents (some plumbers and top helpers or paint thinners).? Lead.? Mercury. ? Sexual intercourse may continue until the end of the , unless you have a medical problem or there is a problem with the and your health care provider tells you not to.? Do not wear high-heel shoes, especially during the second half of the . You can lose your balance and fall.? Do not take long trips, unless absolutely necessary. Be sure to see your health care provider before going on the trip.? Do not sit in one position for more than 2 hours when on a trip.? Take a copy of your medical records when going on a trip. Know where a hospital is located in the city you are visiting, in case of an emergency.? Most dangerous household products will have warnings on their labels. Ask your health care provider about products if you are unsure. ? Limit or eliminate your caffeine intake from coffee, tea, sodas, medicines, and chocolate. ? Many women continue working through . Staying active might help you stay healthier. If you have a question about the safety or the hours you work at your particular job, talk with your health care provider. ? Get informed:? Read books.? Watch videos.? Go to childbirth classes for you and your significant other. ? Talk with experienced moms. ? Ask your health care provider about childbirth education classes for you and your partner. Classes can help you and your partner prepare for the of your baby. ? Ask about a baby doctor (scrap hoist operator) and methods and pain medicine for labor, delivery, and possible delivery.HOW OFTEN SHOULD I SEE MY HEALTH CARE PROVIDER DURING ?Your health care provider will give you a schedule for your visits. You will have visits more often as you get closer to the end of your . An average lasts about 40 weeks. A typical schedule includes visiting your health care provider: ? About once each month during your first 6 months of . ? Every 2 weeks during the next 2 months. ? Weekly in the last month, until the delivery date. Your health care provider will probably want to see you more often if:? You are older than 35 years. ? Your is high risk because you have certain health problems or problems with the , such as:? Diabetes.? High blood pressure.? The baby is not growing on schedule, according to the dates of the .Your health care provider will do special tests to make sure you and your baby are not having any serious problems.WHAT HAPPENS DURING VISITS?? At your first visit, your health care provider will do a physical exam and talk to you about your health history and the health history of your partner and your family. Your health care provider will be able to tell you what date to expect your baby to be born on.? Your first physical exam will include checks of your blood pressure, measurements of your height and weight, and an exam of your pelvic organs. Your health care provider will do a Pap test if you have not had one recently and will do cultures of your cervix to make sure there is no infection.? At each visit, there will be tests of your blood, urine, blood pressure, weight, and the progress of the baby will be checked.? At your later visits, your health care provider will check how you are doing and how your baby is developing. You may have a number of tests done as your progresses.? Ultrasound exams are often used to check on your baby's growth and health.? You may have more urine and blood tests, as well as special tests, if needed. These may include amniocentesis to examine fluid in the sac, stress tests to check how the baby responds to contractions, or a biophysical profile to measure your baby's well-being. Your health care provider will explain the tests and why they are necessary. ? You should be tested for high blood sugar (gestational diabetes) between the 24th and 28th weeks of your . ? You should discuss with your health care provider your plans to breastfeed or bottle-feed your baby. ? Each visit is also a chance for you to learn about staying healthy during and to ask questions. Document Released: 01/25/2004 Document Revised: 01/27/2014 Document Reviewed: 04/08/2014ExitCare? Patient Information ?2014 [employer]. This information is not intended to replace advice given to you by your health care provider. Make sure you discuss any questions you have with your health care provider.SARAH Broderick KERA , have received the following patient education materials/instructions and have verbalized understanding: Patient Education Materials: Pelvic Pain, Female; First Trimester of ; Care Follow-up Instructions: With: Address: When: Kaitlyn Perdomo [address], [place] [address] [facility] (1) Within 3 to 5 days Comments: Return to ED if symptoms worsen Prescriptions: [multivitamin, ( Multivitamins with Folic Acid 1 mg oral tablet)] Patient Signature Date Clinician/Nurse Signature _ Date 09/14/16 16:42:18 [facility] Progress Note-Nurseon 2016 Progress Note-Nurse Pelvic exam complete d per Dr. Mcguire with this RN present, specimens collected, tolerated procedure well. H2O given to patient, instructed to alert staff once she feels the urge to void, so that staff can alert ultrasound. Patient verbalizes understanding and relays that she is aware that she should not urinate prior to US. Normal [facility] U BetaHcg Qualon 09-14-2016 CHORIOGONADOTROPIN.BE TA SUBUNIT:SCNC:PT:URINE :QN: Positive [facility] Comment on above: Performed By: #### 2 [id number] ####[facility] [address] [place] [address] UA With Cult Reflexon 2016 BACTERIA:PRTHR:PT:URI NE SED:ORD:MICROSCOPY.LI GHT 1+ /HPF Abnormal Trace [facility] Comment on above: Performed By: #### 2 [id number], [id number] ####[facility] [address] [place] [id number] Bilirubin Ql (U) Negative Normal Negative [facility] Comment on above: Performed By: #### 2 [id number], [id number] ####[facility] [address] [place] [address] COLOR:TYPE:PT:URINE:N OM:AUTO YELLOW Normal Yellow [facility] Comment on above: Performed By: #### 2 [id number], [id number] ####[address] [address] CRYSTALS:PRTHR:PT:URI NE SED:ORD:MICROSCOPY.LI GHT Present Normal [facility] Comment on above: Performed By: #### 2 [id number], [id number] ####[facility] [address] [place] [address] Erythrocytes (RBC) 0-3 Normal 0-3 [facility] Comment on above: Performed By: #### 2 [id number], [id number] ####[facility] [address] [place] [address] GLUCOSE:MCNC:PT:URINE :QN:TEST STRIP Negative Normal Negative [facility] Comment on above: Performed By: #### 2 [id number], [id number] ####[facility] [address] [place] [id number] KETONES:MCNC:PT:URINE :QN:TEST STRIP Negative Normal Negative [facility] Comment on above: Performed By: #### 2 [id number], [id number] ####[facility] [address] [place], [place] [id number] LEUKOCYTES:PRTHR:PT:U RINE:ORD:AUTOMATED Negative Normal Negative [facility] Comment on above: Performed By: #### 2 [id number], [id number] ####[facility] [address] Formerly [facility] [place] [address] UA Spec Desc Random Urine Normal [facility] Comment on above: Performed By: #### 2 [id number], [id number] ####[facility] [address] [facility]ly [facility] [place] [address] Urine, clarity SL CLOUDY Abnormal Clear [facility] Comment on above: Performed By: #### 2 [id number], [id number] ####[facility] [address] [place] [address] Urine, hemoglobin presence TRACE Abnormal Negative [facility] Comment on above: Performed By: #### 2 [id number], [id number] ####[facility] [address] [place] [address] Urine, leukocytes in sedmiment 0-5 Normal 0-5 [facility] Comment on above: Performed By: #### 2 [id number] ####[facility] [address] AveNorthe [place] [address] Urine, nitrite presence Negative Normal Negative [facility] Comment on above: Performed By: #### 2 [id number], [id number] ####[facility] [address] [facility] [place] [address] Urine, pH 8.0 [pH] Invalid Interpretation Code 5.0-9.0 [facility] Comment on above: Performed By: #### 2 [id number], [id number] ####[facility] [address] [place] [address] Urine, protein Negative Normal Negative [facility] Comment on above: Performed By: #### 2 [id number], [id number] ####[facility] [address] [place] [address] Urine, specific gravity 1.015 Invalid Interpretation Code 1.005-1.030 [facility] Comment on above: Performed By: #### 2 [id number], [id number] ####[facility] [address] [place] [address] Urine, squamous cells in sediment 5-8 Normal 0-2 [facility] Comment on above: Performed By: #### 2 [id number], [id number] ####[facility] [address] [place] [address] Urine, urobilinogen 0.2 {George'U}/dL Normal 0.0-1.0 [facility] Comment on above: Performed By: #### 2 [id number], [id number] ####[facility] [address] [place] [address] US 1st Trimesteron 09-14-2016 US 1st Trimester Exam Date/Time:09/14/2016 15:53 EDTReason for Exam:Abdominal Pain;Other (please specify)ReportIMPRESSIO N: SUSPECTED EARLY INTRAUTERINE GESTATIONAL SAC CORRESPONDING TO A 5 WEEK 2DAY GESTATIONAL AGE. NO POLE OR YOLK SAC VISUALIZED. NO FREE FLUID OR ABNORMALADNEXAL MASS. RECOMMEND CORRELATION WITH SERIAL BETA HG LEVELS AND FOLLOW-UPSONOGRAM.SUSPE CTED CORPUS LUTEAL CYST IN THE RIGHT OVARY.CLINICAL HISTORY: Pelvic pain left side. Positive test. LMP: 07/25/2016.By LMP estimated gestational age is 6 weeks 1 days. 1.COMPARISONS: NONEFINDINGS: Transabdominal/transvag inal ultrasonography of the gravid uterus wasperformed. The uterus measures 7.8 x 5.7 x 3.6 cm with a volume of 85 mL. A singleintrauterine gestational sac is visualized in the fundus of the uterus with a meandiameter of 7.3 mm, corresponding to 5 week 2 day gestational age. No pole oryolk sac visualized.The cervix is closed and elongated.The maternal right ovary has a volume of 11.8 mL. There are small follicles in bothovaries. There is a 1.7 cm complex cyst in the right ovary with peripheral vascularflow, suspected corpus luteal cyst.The maternal left ovary has a volume of 4.0 mL.Vascular flow is seen in both ovaries.No free fluid is visualized. No sign of subchorionic hemorrhage. There is no abnormal adnexal mass. FINAL REPORT Dictated: 09/14/2016 4:18 pm Samantha Lopez MD Signed (Electronic Signature): 09/14/2016 4:18 pm Signed by: Samantha Lopez MD Transcribed by: SANDY Technologist: VIKAS Ernandez [facility] US Transvaginalon 09-14-2016 INR Coag RelTime (Bld) Exam Date/Time:09/14/2016 15:53 EDTReason for Exam:PainReportPlease refer to the transabdominal ultrasound report. FINAL REPORT Dictated: 09/14/2016 4:18 pm Samantha Lopez MD Signed (Electronic Signature): 09/14/2016 4:18 pm Signed by: Samantha Lopez MD Transcribed by: SANDY Technologist: VIKAS Ernandez [facility] eGFRon 09-14-2016 eGFR (black) mL/min/{1.73_m2} Normal >=59 [facility] Comment on above: Order Comment: Order added by Discern Expert. Result Comment: eGFR is race adjusted. AA=. Performed By: #### 2 [id number], [id number] ####[facility] [address] [place] [address] eGFR (non-black) mL/min/{1.73_m2} Normal >=59 [facility] Comment on above: Order Comment: Order added by Discern Expert. Result Comment: Industrial Therapist alpa kidney disease could be indicated at eGFR's of less than 60 mL/min/1.73m2. Kidney failure is indicated at less than 15 mL/min/1.73m2. Performed By: #### 2 [id number], [id number] ####[facility] [address] [place] [address] Vital Signs Date Time Vital Sign Value Performing Clinician Facility 07-30-2024 13:54-0400 Body height 165.1 cm No Primary Care Physician [facility] 07-30-2024 13:54-0400 Body mass index (BMI) [Ratio] 41.2 kg/m2 No Primary Care Physician [facility] 07-30-2024 13:54-0400 Body weight 112.49 kg No Primary Care Physician [facility] 07-30-2024 13:53-0400 Body temperature 98.3 [degF] No Primary Care Physician [facility] 07-30-2024 13:53-0400 Respiratory rate 12 /min No Primary Care Physician [facility] 07-30-2024 13:53-0400 SaO2% (BldA) [Mass fraction] 99 % No Primary Care Physician [facility] 07-25-2024 17:34-0400 Diastolic blood pressure 70 mm[Hg] No Primary Care Physician [facility] 07-25-2024 17:34-0400 Heart rate 85 /min No Primary Care Physician [facility] 07-25-2024 17:34-0400 Systolic blood pressure 115 mm[Hg] No Primary Care Physician [facility] 07-25-2024 15:06-0400 Body height 165.1 cm No Primary Care Physician [facility] 07-25-2024 15:06-0400 Body mass index (BMI) [Ratio] 40.7 kg/m2 No Primary Care Physician [facility] 07-25-2024 15:06-0400 Body weight 111.13 kg No Primary Care Physician [facility] 07-25-2024 14:49-0400 Body temperature 98 [degF] No Primary Care Physician [facility] 07-25-2024 14:49-0400 Respiratory rate 14 /min No Primary Care Physician [facility] 07-25-2024 14:49-0400 SaO2% (BldA) [Mass fraction] 100 % No Primary Care Physician [facility] 07-23-2024 09:11-0400 Body mass index (BMI) [Ratio] 41.57 kg/m2 Mariana Hilario APRN.CNM Work Phone: [facility] 07-23-2024 09:11-0400 Body weight 111.58 kg Mariana Hilario APRN.CNM Work Phone: [facility] 07-23-2024 09:11-0400 Diastolic blood pressure 80 mm[Hg] Mariana Hilario APRN.CNM Work Phone: [facility] 07-23-2024 09:11-0400 Systolic blood pressure 124 mm[Hg] Mariana Hilario APRN.CNM Work Phone: [facility] 07-16-2024 10:07-0400 Body mass index (BMI) [Ratio] 41.07 kg/m2 Jenise Nieves MD Work Phone: [facility] 07-16-2024 10:07-0400 Body weight 110.22 kg Jenise Nieves MD Work Phone: [facility] 07-16-2024 10:07-0400 Diastolic blood pressure 82 mm[Hg] Jenise Nieves MD Work Phone: [facility] 07-16-2024 10:07-0400 Systolic blood pressure 124 mm[Hg] Jenise Nieves MD Work Phone: [facility] 07-02-2024 09:46-0400 Body mass index (BMI) [Ratio] 40.29 kg/m2 Elsa Plotts G[employer]OVER.CNM Work Phone: [facility] 07-02-2024 09:46-0400 Body temperature 98.71 [degF] Elsa Plotts GUM REMOVER.CNM Work Phone: [facility] Comment on above: tympanic 07-02-2024 09:46-0400 Body weight 108.14 kg Elsa Plotts [employer].CNM Work Phone: [facility] 07-02-2024 09:46-0400 Diastolic blood pressure 70 mm[Hg] Elsa Plotts G[employer] REMOVER.CNM Work Phone: [facility] 07-02-2024 09:46-0400 Systolic blood pressure 126 mm[Hg] Elsa Plotts GUM REMOVER.CNM Work Phone: [facility] 06-18-2024 14:21-0400 Body mass index (BMI) [Ratio] 39.21 kg/m2 Janay Bhatti MD Work Phone: [facility] 06-18-2024 14:21-0400 Body weight 105.23 kg Janay Bhatti MD Work Phone: [facility] 06-18-2024 14:21-0400 Diastolic blood pressure 66 mm[Hg] Janay Bhatti MD Work Phone: [facility] 06-18-2024 14:21-0400 Systolic blood pressure 120 mm[Hg] Janay Bhatti MD Work Phone: [facility] 06-04-2024 09:58-0400 Body mass index (BMI) [Ratio] 39.38 kg/m2 Mraiana Hilario G[employer] REMOVER.CNM Work Phone: [facility] 06-04-2024 09:58-0400 Body weight 105.69 kg Mariana Hilario GUM REMOVER.CNM Work Phone: [facility] 06-04-2024 09:58-0400 Diastolic blood pressure 72 mm[Hg] Mariana Hilario GUM REMOVER.CNM Work Phone: [facility] 06-04-2024 09:58-0400 Systolic blood pressure 116 mm[Hg] Mariana Hilario GUM REMOVER.CNM Work Phone: [facility] 05-26-2024 11:28-0400 Body mass index (BMI) [Ratio] 38.97 kg/m2 Eric Gaspar G[employer]OVER.[employer] Work Phone: [facility] 05-26-2024 11:28-0400 Body temperature 98.49 [degF] Eric Gaspar [employer] REMOVER.[employer] Work Phone: [facility] 05-26-2024 11:28-0400 Body weight 104.6 kg Eric Gaspar [employer]OVER.[employer] Work Phone: [facility] 05-26-2024 11:28-0400 Diastolic blood pressure 72 mm[Hg] Eric Gaspar [employer] REMOVER.[employer] Work Phone: [facility] 05-26-2024 11:28-0400 Heart rate 96 /min Eric Gaspar [employer]OVER.[employer] Work Phone: [facility] 05-26-2024 11:28-0400 Respiratory rate 16 /min Eric Gaspar [employer]OVER.[employer] Work Phone: [facility] 05-26-2024 11:28-0400 SaO2% (BldA) [Mass fraction] 99 % Eric [employer] REMOVER.[employer] Work Phone: [facility] 05-26-2024 11:28-0400 Systolic blood pressure 122 mm[Hg] Eric Gaspar APRN.[employer] Work Phone: [facility] 05-21-2024 09:58-0400 Body mass index (BMI) [Ratio] 38.53 kg/m2 Alfred Childress MD Work Phone: [facility] 05-21-2024 09:58-0400 Body weight 103.42 kg Alfred Childress MD Work Phone: [facility] 05-21-2024 09:58-0400 Diastolic blood pressure 74 mm[Hg] Alfred Childress MD Work Phone: [facility] 05-21-2024 09:58-0400 Systolic blood pressure 122 mm[Hg] Alfred Childress MD Work Phone: [facility] 04-22-2024 12:58-0400 Body mass index (BMI) [Ratio] 37.1 kg/m2 Jenise Nieves MD Work Phone: [facility] 04-22-2024 12:58-0400 Body weight 99.79 kg Jenise Nieves MD Work Phone: [facility] 04-22-2024 12:58-0400 Diastolic blood pressure 60 mm[Hg] Jenise Nieves MD Work Phone: [facility] 04-22-2024 12:58-0400 Systolic blood pressure 100 mm[Hg] Jenise Nieves MD Work Phone: [facility] 03-28-2024 10:21-0500 Body mass index (BMI) [Ratio] 35.92 kg/m2 John Banerjee MD Work Phone: [facility] 03-28-2024 10:21-0500 Body weight 96.62 kg John Banerjee MD Work Phone: [facility] 03-28-2024 10:21-0500 Diastolic blood pressure 64 mm[Hg] John Banerjee MD Work Phone: [facility] Comment on above: per OB visit immediately prior 03-28-2024 10:21-0500 Systolic blood pressure 116 mm[Hg] John Banerjee MD Work Phone: [facility] Comment on above: per OB visit immediately prior 03-28-2024 10:02-0500 Body mass index (BMI) [Ratio] 35.92 kg/m2 Mariana Hilario GUM REMOVER.CNM Work Phone: [facility] 03-28-2024 10:02-0500 Body weight 96.62 kg Mariana Hilario G[employer] REMOVER.CNM Work Phone: [facility] 03-28-2024 10:02-0500 Diastolic blood pressure 64 mm[Hg] Mariana Hilario GUM REMOVER.CNM Work Phone: [facility] 03-28-2024 10:02-0500 Systolic blood pressure 116 mm[Hg] Mariana Hilario GUM REMOVER.CNM Work Phone: [facility] 02-28-2024 09:54-0500 Body mass index (BMI) [Ratio] 35.08 kg/m2 Alfred Childress MD Work Phone: [facility] 02-28-2024 09:54-0500 Body weight 94.35 kg Alfred Childress MD Work Phone: [facility] 02-28-2024 09:54-0500 Diastolic blood pressure 68 mm[Hg] Alfred Childress MD Work Phone: [facility] 02-28-2024 09:54-0500 Systolic blood pressure 110 mm[Hg] Alfred Childress MD Work Phone: [facility] 02-14-2024 14:39-0500 Body mass index (BMI) [Ratio] 35.32 kg/m2 Jose Brink [employer]OVER.[employer] Work Phone: [facility] 02-14-2024 14:39-0500 Body temperature 98.29 [degF] Jose Brunsonmelissa [employer]OVER.[employer] Work Phone: [facility] 02-14-2024 14:39-0500 Body weight 95 kg Jose Brunsonmelissa G[employer] REMOVER.[employer] Work Phone: [facility] 02-14-2024 14:39-0500 Diastolic blood pressure 72 mm[Hg] Jose Brunsonmelissa G[employer] REMOVER.[employer] Work Phone: [facility] 02-14-2024 14:39-0500 Heart rate 100 /min Jose Brunsonmelissa G[employer] REMOVER.[employer] Work Phone: [facility] 02-14-2024 14:39-0500 Respiratory rate 18 /min Jose Brunsonmelissa G[employer] REMOVER.[employer] Work Phone: [facility] 02-14-2024 14:39-0500 SaO2% (BldA) [Mass fraction] 98 % Jose Brunsonmelissa [employer]OVER.[employer] Work Phone: [facility] 02-14-2024 14:39-0500 Systolic blood pressure 105 mm[Hg] Jose Brunsonmelissa G[employer] REMOVER.[employer] Work Phone: [facility] 01-31-2024 08:33-0500 Body mass index (BMI) [Ratio] 34.74 kg/m2 Elsa Chaudhary G[employer] REMOVER.CNM Work Phone: [facility] 01-31-2024 08:33-0500 Body weight 93.44 kg Elsa Chaudhary GUM REMOVER.CNM Work Phone: [facility] 01-31-2024 08:33-0500 Diastolic blood pressure 60 mm[Hg] Elsa Plotts G[employer] REMOVER.CNM Work Phone: [facility] 01-31-2024 08:33-0500 Systolic blood pressure 100 mm[Hg] Elsa Chaudhary GUM REMOVER.CNM Work Phone: [facility] 12-28-2023 10:21-0500 Body mass index (BMI) [Ratio] 33.94 kg/m2 Susana Castillo MD Work Phone: [facility] 12-28-2023 10:21-0500 Body weight 91.29 kg Susana Castillo MD Work Phone: [facility] 12-28-2023 10:21-0500 Diastolic blood pressure 62 mm[Hg] Susana Castillo MD Work Phone: [facility] 12-28-2023 10:21-0500 Systolic blood pressure 100 mm[Hg] Susana Castillo MD Work Phone: [facility] 12-24-2023 09:23-0500 Body weight 86.18 kg Segundo Lopez DO Work Phone: [facility] 12-24-2023 09:23-0500 Diastolic blood pressure 73 mm[Hg] Segundo Lopez DO Work Phone: [facility] 12-24-2023 09:23-0500 Systolic blood pressure 117 mm[Hg] Segundo Lopez DO Work Phone: [facility] 12-24-2023 09:21-0500 Body temperature 97.5 [degF] Segundo Lopez DO Work Phone: [facility] 12-24-2023 09:21-0500 Heart rate 91 /min Segundo Lopez DO Work Phone: [facility] 12-24-2023 09:21-0500 Respiratory rate 18 /min Segundo Lopez DO Work Phone: [facility] 12-24-2023 09:21-0500 SaO2% (BldA) [Mass fraction] 98 % Segundo Lopez DO Work Phone: [facility] 12-07-2023 10:55-0400 Body height 164 cm Elkin Martinez APRN.[employer] Work Phone: [facility] 12-07-2023 10:55-0400 Body mass index (BMI) [Ratio] 33.06 kg/m2 Elkin Martinez APRN.[employer] Work Phone: [facility] 12-07-2023 10:55-0400 Body weight 88.91 kg Elkin Haury G[employer] REMOVER.[employer] Work Phone: [facility] 12-07-2023 10:55-0400 Diastolic blood pressure 68 mm[Hg] Elkin Haury G[employer]OVER.[employer] Work Phone: [facility] 12-07-2023 10:55-0400 Systolic blood pressure 118 mm[Hg] Elkin Haury G[employer] REMOVER.[employer] Work Phone: [facility] 11-23-2023 10:38-0400 Body mass index (BMI) [Ratio] 32.95 kg/m2 Mariana Hilario GUM REMOVER.CNM Work Phone: [facility] 11-23-2023 10:38-0400 Body weight 87.54 kg Mariana Hilario G[employer] REMOVER.CNM Work Phone: [facility] 11-23-2023 10:38-0400 Diastolic blood pressure 76 mm[Hg] Mariana Hilario GUM REMOVER.CNM Work Phone: [facility] 11-23-2023 10:38-0400 Systolic blood pressure 114 mm[Hg] Mariana Hilario GUM REMOVER.CNM Work Phone: [facility] 11-21-2023 07:35-0400 Body mass index (BMI) [Ratio] 32.95 kg/m2 Puthy Chhay G[employer]OVER.[employer] Work Phone: [facility] 11-21-2023 07:35-0400 Body weight 87.54 kg Puthy Chhay G[employer] REMOVER.[employer] Work Phone: [facility] Comment on above: self report 11-21-2023 07:35-0400 Diastolic blood pressure 90 mm[Hg] Puthy Chhay G[employer] REMOVER.[employer] Work Phone: [facility] Comment on above: self report 11-21-2023 07:35-0400 Systolic blood pressure 120 mm[Hg] Puthy Chhay G[employer] REMOVER.[employer] Work Phone: [facility] Comment on above: self report 08-06-2023 07:23-0400 Body mass index (BMI) [Ratio] 34.66 kg/m2 Puthy Chhay [employer] Work Phone: [facility] 08-06-2023 07:23-0400 Body weight 92.08 kg Puthy Chhay G[employer]OVER.[employer] Work Phone: [facility] Comment on above: self report 06-06-2023 10:01-0400 Body mass index (BMI) [Ratio] 37.73 kg/m2 Puthy Chhay G[employer]OVER.[employer] Work Phone: [facility] 06-06-2023 10:01-0400 Body weight 100.25 kg Puthy Chhay G[employer] REMOVER.[employer] Work Phone: [facility] 06-06-2023 10:01-0400 Diastolic blood pressure 76 mm[Hg] Puthy Chhay G[employer] REMOVER.[employer] Work Phone: [facility] 06-06-2023 10:01-0400 Heart rate 73 /min Puthy Chhay [employer]OVER.[employer] Work Phone: [facility] 06-06-2023 10:01-0400 SaO2% (BldA) [Mass fraction] 95 % Puthy Chhay [employer]OVER.[employer] Work Phone: [facility] 06-06-2023 10:01-0400 Systolic blood pressure 113 mm[Hg] Puthy Chhay G[employer] REMOVER.[employer] Work Phone: [facility] 06-05-2023 06:42-0400 Body height 165.1 cm [facility] 06-05-2023 06:42-0400 Body mass index (BMI) [Ratio] 37.2 kg/m2 [facility] 06-05-2023 06:42-0400 Body temperature 97.9 [degF] [facility] 06-05-2023 06:42-0400 Body weight 101.4 kg [facility] 06-05-2023 06:42-0400 Diastolic blood pressure 98 mm[Hg] [facility] 06-05-2023 06:42-0400 Heart rate 79 /min [facility] 06-05-2023 06:42-0400 Respiratory rate 18 /min [facility] 06-05-2023 06:42-0400 SaO2% (BldA) [Mass fraction] 98 % [facility] 06-05-2023 06:42-0400 Systolic blood pressure 133 mm[Hg] [facility] 04-16-2023 14:21-0400 Heart rate 102 /min Morelia Bogner PA-C Work Phone: [facility] 04-16-2023 14:10-0400 Body temperature 98.91 [degF] Morelia Bogner PA-C Work Phone: [facility] 04-16-2023 14:10-0400 Body weight 99.7 kg Morelia Bogner PA-C Work Phone: [facility] 04-16-2023 14:10-0400 Diastolic blood pressure 74 mm[Hg] Morelia Bogner PA-C Work Phone: [facility] 04-16-2023 14:10-0400 Respiratory rate 18 /min Morelia Bogner PA-C Work Phone: [facility] 04-16-2023 14:10-0400 SaO2% (BldA) [Mass fraction] 97 % Morelia Bogner PA-C Work Phone: [facility] 04-16-2023 14:10-0400 Systolic blood pressure 106 mm[Hg] Morelia Bogner PA-C Work Phone: [facility] 10-12-2022 08:34-0400 Body weight 92.08 kg Ed Vaz APRN.CNP Work Phone: [facility] 07-12-2022 11:34-0400 Body weight 92.44 kg Lupe Grant MD Work Phone: [facility] 07-12-2022 11:34-0400 Diastolic blood pressure 81 mm[Hg] Lupe Grant MD Work Phone: [facility] 07-12-2022 11:34-0400 Heart rate 94 /min Lupe Grant MD Work Phone: [facility] 07-12-2022 11:34-0400 Systolic blood pressure 116 mm[Hg] uLpe Grant MD Work Phone: [facility] 06-05-2022 08:15-0400 Body weight 94.35 kg Lavern Lim MD Work Phone: [facility] 06-05-2022 08:15-0400 Diastolic blood pressure 84 mm[Hg] Lavern Lim MD Work Phone: [facility] 06-05-2022 08:15-0400 Heart rate 91 /min Lavern Lim MD Work Phone: [facility] 06-05-2022 08:15-0400 SaO2% (BldA) [Mass fraction] 97 % Lavern Lim MD Work Phone: [facility] 06-05-2022 08:15-0400 Systolic blood pressure 110 mm[Hg] Lavern Lim MD Work Phone: [facility] 12-18-2021 11:45-0500 Body temperature 98.01 [degF] Jose Pendlemelissa [employer]OVER.[employer] Work Phone: [facility] 12-18-2021 11:45-0500 Body weight 105.42 kg Jose Brink [employer] Work Phone: [facility] 12-18-2021 11:45-0500 Diastolic blood pressure 76 mm[Hg] Jose Pendlemelissa [employer]OVER.[employer] Work Phone: [facility] 12-18-2021 11:45-0500 Heart rate 97 /min Jose Pendlemelissa G[employer] REMOVER.[employer] Work Phone: [facility] 12-18-2021 11:45-0500 Respiratory rate 18 /min Jose Pendlemelissa [employer] Work Phone: [facility] 12-18-2021 11:45-0500 SaO2% (BldA) [Mass fraction] 98 % Jose Brink [employer] Work Phone: [facility] 12-18-2021 11:45-0500 Systolic blood pressure 130 mm[Hg] Jose Brink [employer] Work Phone: [facility] [facility] 08-19-2021 18:50-0400 Body temperature 97.2 [degF] Eric Hubert GUM REMOVER.[employer] Work Phone: [facility] 08-19-2021 18:50-0400 Body weight 100.61 kg Eric Gaspar GUM REMOVER.[employer] Work Phone: [facility] 08-19-2021 18:50-0400 Diastolic blood pressure 82 mm[Hg] Eric Hubert GUM REMOVER.[employer] Work Phone: [facility] 08-19-2021 18:50-0400 Heart rate 82 /min Eric Hubert GUM REMOVER.[employer] Work Phone: [facility] 08-19-2021 18:50-0400 Respiratory rate 18 /min Eric Hubert GUM REMOVER.[employer] Work Phone: [facility] 08-19-2021 18:50-0400 SaO2% (BldA) [Mass fraction] 98 % Eric Hubert GUM REMOVER.[employer] Work Phone: [facility] 08-19-2021 18:50-0400 Systolic blood pressure 126 mm[Hg] Eric Hubert GUM REMOVER.[employer] Work Phone: [facility] 08-03-2021 14:45-0400 Body temperature 97.5 [degF] Storm Kinsel DO Work Phone: [facility] 08-03-2021 14:45-0400 Body weight 102.33 kg Storm Kinsel DO Work Phone: [facility] 08-03-2021 14:45-0400 Diastolic blood pressure 77 mm[Hg] Storm Kinsel DO Work Phone: [facility] 08-03-2021 14:45-0400 Heart rate 80 /min Storm Mueller DO Work Phone: [facility] 08-03-2021 14:45-0400 SaO2% (BldA) [Mass fraction] 98 % Storm Mueller DO Work Phone: [facility] 08-03-2021 14:45-0400 Systolic blood pressure 131 mm[Hg] Storm Mueller DO Work Phone: [facility] Encounters Encounter Date Encounter Type Care Provider Facility Start: 07-30-2024 End: 07-30-2024 ambulatory No Primary Care Physician [facility] Work Phone: Start: 07-30-2024 End: 07-30-[address] Jenise Nieves MD -[facility] Work Phone: Start: 07-27-2024 End: 07-27-2024 ambulatory Juana Perdomo RN NURSE DISABILITY COUNSELOR Comment on above: Patient Update Start: 07-25-2024 End: 07-25-2024 ambulatory No Primary Care Physician [facility] Work Phone: Start: 07-25-2024 End: 07-25-[address] Jenise Nieves MD -[facility] Work Phone: Start: 07-23-2024 End: 07-23-2024 Patient encounter procedure Mariana Hilario APRN.CN Work Phone: OB/Gynecology Comment on above: Supervision of high risk in third trimester (HCC) (Primary Dx); History of pre-eclampsia; Obesity affecting in third trimester, unspecified obesity type (HCC); 37 weeks gestation of (HCC); Single umbilical artery affecting management of mother, antepartum, single gestation (HCC); Rubella non-immune status, antepartum (HCC); Elevated TSH; History of anxiety Start: 07-23-2024 End: 07-23-2024 ambulatory KARON ODONNELL Facility:[facility] Start: 07-19-2024 End: 07-19-2024 ambulatory Nancy Shuttic BOTTLE CARRIER NURSE DISABILITY COUNSELOR Comment on above: feet swollen Start: 07-16-2024 End: 07-16-2024 Office outpatient visit 15 minutes Jenise Nieves MD Work Phone: OB/Gynecology Comment on above: 36 weeks gestation o f (HCC) (Primary Dx); Supervision of high risk in third trimester (HCC); History of pre-eclampsia Start: 07-16-2024 End: 07-16-2024 Patient encounter procedure Whi Tech 1 Water System Operator [employer] Maternal Medicine Comment on above: Obesity affecting pr egnancy in first trimester, unspecified obesity type (HCC) (Primary Dx); Single umbilical artery affecting management of mother, antepartum, single gestation (HCC) Start: 07-16-2024 End: 07-17-2024 ambulatory Jenise Nieves MD Work Phone: OB/Gynecology Comment on above: Start: 07-09-2024 End: 07-09-2024 Telephone encounter Elsa Chaudhary APRN.FABIM Work Phone: OB/Gynecology Start: 07-02-2024 End: 07-02-2024 Patient encounter procedure Elsa Chaudhary GUM REMOVER.CNM Work Phone: OB/Gynecology Comment on above: 34 weeks gestation o f (HCC) (Primary Dx); Supervision of high risk in third trimester (HCC); History of pre-eclampsia; Obesity affecting in third trimester, unspecified obesity type (HCC) Start: 07-02-2024 End: 07-02-2024 ambulatory ELSA CHAUDHARY Facility:[facility] Start: 07-01-2024 End: 07-01-2024 Telephone encounter Jenise Nieves MD Work Phone: OB/Gynecology Comment on above: Question (OB Questio n) Start: 06-18-2024 End: 06-18-2024 Patient encounter procedure Janay Bhatti MD Work Phone: OB/Gynecology Comment on above: Supervision of high risk in third trimester (HCC) (Primary Dx); History of pre-eclampsia; Elevated TSH; Single umbilical artery affecting management of mother, antepartum, single gestation (HCC); 32 weeks gestation of (HCC) Encounter for ultras ound to check growth (HCC) (Primary Dx); Single umbilical artery affecting management of mother, antepartum, single gestation (HCC); 32 weeks gestation of (HCC) Start: 06-18-2024 End: 06-18-2024 ambulatory ALFRED CHILDRESS Facility:[facility] Start: 06-12-2024 End: 06-19-2024 ambulatory Elsa Chaudhary GUM REMOVER.CNM Work Phone: OB/Gynecology Comment on above: Maternity leave Start: 06-05-2024 End: 06-05-2024 Telephone encounter Jenise Cazares RN Maternal Medicine Comment on above: Assembler Wet Wash - O ther (PRAF) Start: 06-04-2024 End: 06-04-2024 Patient encounter procedure Mariana Hilario APRN.CNMoisés Work Phone: OB/Gynecology Comment on above: Supervision of high risk in third trimester (HCC) (Primary Dx); 30 weeks gestation of (HCC); Obesity affecting in first trimester, unspecified obesity type (HCC); Elevated TSH; Single umbilical artery affecting management of mother, antepartum, single gestation (HCC); History of pre-eclampsia; Rubella non-immune status, antepartum (HCC); History of anxiety Start: 06-04-2024 End: 06-04-2024 ambulatory MARIANADANY HILARIO Facility:[facility] Start: 05-26-2024 End: 05-26-2024 Patient encounter procedure Eric Gaspar APRN.[employer]OS[employer] MAKER Work Phone: [facility] Comment on above: Acute otitis media, right (Primary Dx); URI, acute Start: 05-26-2024 End: 05-26-2024 ambulatory ERIC GASPAR Facility:[facility] Start: 05-23-2024 End: 07-23-2024 Follow-up encounter Alfred Childress MD Work Phone: OB/Gynecology Start: 05-21-2024 End: 05-21-2024 Patient encounter procedure Whi Tech 1 Water System Operator [employer] Maternal Medicine Comment on above: Encounter for ultras ound to check growth (HCC) (Primary Dx); Single umbilical artery affecting management of mother, antepartum, single gestation (HCC); 28 weeks gestation of (HCC) High-risk in third trimester (HCC) (Primary Dx); History of pre-eclampsia; Single umbilical artery affecting management of mother, antepartum, single gestation (HCC); 28 weeks gestation of (HCC); Need for vaccination; Encounter for other general counseling or advice on contraception; Elevated TSH Start: 05-21-2024 End: 05-21-2024 ambulatory [facility] Facility:[facility] Start: 05-20-2024 End: 05-20-2024 ambulatory Elsa Chaudhary GUM REMOVER.CNM Work Phone: OB/Gynecology Comment on above: Nausea Start: 05-18-2024 End: 05-18-2024 ambulatory JENISE NIEVES Facility:[facility] Start: 05-18-2024 End: 05-18-2024 Emergency department patient visit [facility] Facility:[facility] Start: 04-22-2024 End: 04-22-2024 ambulatory [facility] Facility:[facility] Start: 04-22-2024 End: 04-22-2024 Office outpatient visit 15 minutes Jenise Nieves MD Work Phone: OB/Gynecology Comment on above: 24 weeks gestation o f (Primary Dx); Supervision of high risk in second trimester; Obesity affecting in first trimester, unspecified obesity type; History of pre-eclampsia; Rubella non-immune status, antepartum; Screening for diabetes mellitus Start: 04-17-2024 End: 06-17-2024 Follow-up encounter Susana Castillo MD Work Phone: OB/Gynecology Start: 04-16-2024 End: 04-16-2024 ambulatory Reagan Bermeo MD Work Phone: Pediatric Cardiology Start: 04-16-2024 End: 04-16-2024 Patient encounter procedure Reagan Bermeo MD Work Phone: Pediatric Cardiology Start: 04-01-2024 End: 04-02-2024 ambulatory Elsa Chaudhary GUM REMOVER.CNM Work Phone: OB/Gynecology Comment on above: Feet/legs Start: 03-31-2024 End: 03-31-2024 Telephone encounter Jenise Cazares RN Maternal Medicine Comment on above: Assembler Wet Wash - O ther (PRAF) Start: 03-28-2024 End: 05-28-2024 Follow-up encounter Susana Castillo MD Work Phone: OB/Gynecology Start: 03-28-2024 End: 03-31-2024 Telephone encounter Susana Castillo MD Work Phone: OB/Gynecology Comment on above: Results Start: 03-28-2024 End: 04-01-2024 ambulatory Yazmin Hall RN NURSE DISABILITY COUNSELOR Comment on above: Lab & Test Results Fax number Start: 03-28-2024 End: 03-28-2024 Patient encounter procedure Mariana Hilario APRN.CNM Work Phone: OB/Gynecology Comment on above: Supervision of high risk in second trimester (Primary Dx); 20 weeks gestation of ; Obesity affecting in first trimester, unspecified obesity type; Elevated TSH; Two vessel cord; History of pre-eclampsia; Rubella non-immune status, antepartum; History of anxiety Encounter for anatomic survey (Primary Dx); Thyroid disease; 20 weeks gestation of ; Obesity affecting in second trimester, unspecified obesity type; Two vessel cord Elevated TSH; 7 weeks gestation of Start: 02-28-2024 End: 02-28-2024 ambulatory ALFRED CHILDRESS Facility:[facility] Start: 02-28-2024 End: 02-28-2024 Patient encounter procedure Alfred Childress MD Work Phone: OB/Gynecology Comment on above: Encounter for superv ision of high risk in first trimester, antepartum (Primary Dx); Elevated TSH; 16 weeks gestation of Encounter for sophie faust screening for malformation using ultrasound (Primary Dx); Two vessel cord; Obesity affecting in first trimester, unspecified obesity type; 16 weeks gestation of Start: 02-28-2024 End: 02-28-2024 ambulatory ELSA CHAUDHARY Facility:[facility] Start: 02-20-2024 End: 02-20-2024 Telephone encounter Alfred Childress MD Work Phone: OB/Gynecology Comment on above: Question (OB Questio n) Start: 02-19-2024 End: 02-19-2024 Emergency department patient visit No Primary Care Physician Facility:[facility] Start: 02-14-2024 End: 02-14-2024 ambulatory [facility] Facility:[facility] Start: 02-14-2024 End: 02-14-2024 Office outpatient visit 15 minutes Jose Brink APRN.CROSSBOW MAKER Work Phone: [facility] Comment on above: Viral illness (Prima ry Dx) Start: 02-01-2024 End: 02-01-2024 Telephone encounter Elkin Martinez APRN.CROSSBOW MAKER Work Phone: OB/Gynecology Comment on above: Results Start: 01-31-2024 End: 01-31-2024 Telephone encounter Elsa Chaudhary APRN.CNMoisés Work Phone: [address] [place] [address] Comment on above: Orders Start: 01-31-2024 End: 01-31-2024 ambulatory Susana Castillo MD Work Phone: OB/Gynecology Comment on above: Ultrasound Start: 01-31-2024 End: 01-31-2024 Patient encounter procedure Elsa Chaudhary APRN.CNMoisés Work Phone: OB/Gynecology Comment on above: Encounter for superv ision of high risk in first trimester, antepartum (Primary Dx); Obesity affecting in first trimester, unspecified obesity type; Vaginal itching; History of anxiety; Thyroid disease; 12 weeks gestation of ; Two vessel cord Encounter for sharonsegundo faust screening for malformation using ultrasound (Primary Dx); 12 weeks gestation of Start: 01-20-2024 End: 01-25-2024 ambulatory Elkin Martinez APRN.CROSSBOW MAKER Work Phone: OB/Gynecology Comment on above: Fainting Start: 01-15-2024 End: 01-15-2024 ambulatory [facility] Facility:[facility] Start: 12-28-2023 End: 12-28-2023 ambulatory Water System Operator Wstr [facility] Work Phone: OB/Gynecology Start: 12-28-2023 End: 12-28-2023 Patient encounter procedure Water System Operator [employer]str [employer] Work Phone: OB/Gynecology Comment on above: Encounter for superv ision of high risk in first trimester, antepartum (Primary Dx); 7 weeks gestation of ; Thyroid disease Start: 12-24-2023 End: 12-24-2023 ambulatory Elkin Martinez APRN.CROSSBOW MAKER Work Phone: OB/Gynecology Comment on above: Er visit Start: 12-24-2023 End: 12-24-2023 Emergency department patient visit Segundo Lopez DO Work Phone: [facility] Emergency Medicine Comment on above: Threatened in early ([facility]-H[facility]) (Primary Dx) Start: 12-14-2023 End: 12-14-2023 ambulatory ELKIN MARTINEZ Facility:[facility] Start: 12-12-2023 End: 12-14-2023 Telephone encounter Elkin Martinez APRN.CROSSBOW MAKER Work Phone: OB/Gynecology Comment on above: Thyroid Problem Orders Start: 12-12-2023 End: 12-12-2023 ambulatory ELKIN MARTINEZ Facility:[facility] Start: 12-11-2023 End: 12-11-2023 Telephone encounter Nurse Water System Operator Dustin Gowen Work Phone: Obstetrics/Gynecology Comment on above: PRAF Start: 12-10-2023 End: 12-12-2023 Telephone encounter Elkin Martinez APRN.CROSSBOW MAKER Work Phone: OB/Gynecology Comment on above: Results Start: 12-10-2023 End: 12-10-2023 ambulatory Elkin Martinez APRN.CROSSBOW MAKER Work Phone: OB/Gynecology Comment on above: Bloodwork Start: 12-07-2023 End: 12-07-2023 ambulatory KARON ODONNELL Facility:[facility] Start: 12-07-2023 End: 12-07-2023 Patient encounter procedure Elkin Martinez APRN.CNP Work Phone: OB/Gynecology Comment on above: Encounter for superv ision of high risk in first trimester, antepartum (Primary Dx); with uncertain dates in first trimester; Obesity affecting in first trimester, unspecified obesity type; History of anxiety; History of pre-eclampsia; Family history of congenital anomaly; Inverted nipple; History of miscarriage; PCOS (polycystic ovarian syndrome); Need for influenza vaccination Start: 12-04-2023 End: 12-05-2023 ambulatory Ed Vaz APRN.CNP Work Phone: Endocrinology Comment on above: Medication Start: 12-04-2023 End: 12-04-2023 Telephone encounter Elkin Juan SALGUERO Work Phone: OB/Gynecology Comment on above: Appointment Opened In Error Start: 11-23-2023 End: 11-23-2023 ambulatory KARON ODONNELL Facility:[facility] Start: 11-23-2023 End: 11-23-2023 Patient encounter procedure Mariana Hilario APRN.CNM Work Phone: OB/Gynecology Comment on above: Encounter for gyneco logical examination (general) (routine) with abnormal findings (Primary Dx); Screening for cervical cancer; Encounter for screening for human papillomavirus (HPV); Inverted nipple; Vaginal discharge; Encounter for surveillance of contraceptive pills Start: 11-23-2023 End: 11-23-2023 Patient encounter status Mariana Hilario APRN.CNM Work Phone: [facility] Start: 11-21-2023 End: 11-21-2023 ambulatory Ed Vaz APRN.CNP Work Phone: Endocrinology Comment on above: Class 1 obesity with body mass index (BMI) of 32.0 to 32.9 in adult, unspecified obesity type, unspecified whether serious comorbidity present (Primary Dx) Start: 11-21-2023 End: 11-21-2023 Telemedicine consultation with patient Ed Vaz APRN.CNP Work Phone: Endocrinology Start: 08-06-2023 End: 08-06-2023 ambulatory Ed Vaz APRN.CNP Work Phone: Endocrinology Comment on above: Class 1 obesity with body mass index (BMI) of 34.0 to 34.9 in adult, unspecified obesity type, unspecified whether serious comorbidity present (Primary Dx) Blood pressure Start: 08-06-2023 End: 08-06-2023 Telemedicine consultation with patient Ed Vaz APRN.CROSSBOW MAKER Work Phone: Endocrinology Start: 06-20-2023 Telephone encounter Puthy Pick Up y GUM REMOVER.[employer]KER Work Phone: Endocrinology Comment on above: Medication Authoriza tion (Phentermine) Start: 06-06-2023 End: 06-06-2023 Patient encounter procedure Ed Vaz GUM REMOVER.[employer]OSSB[employer] MAKER Work Phone: Endocrinology Comment on above: Class 2 obesity with body mass index (BMI) of 37.0 to 37.9 in adult, unspecified obesity type, unspecified whether serious comorbidity present (Primary Dx); Obesity, Class I, BMI 30-34.9 Start: 06-05-2023 End: 06-05-2023 Emergency department patient visit [facility] Work Phone: Start: 05-29-2023 End: 05-29-2023 ambulatory Cadence Kayjosemanuel VELARDE Work Phone: Diabetic Education [facility] Comment on above: Class 2 obesity with body mass index (BMI) of 37.0 to 37.9 in adult, unspecified obesity type, unspecified whether serious comorbidity present Start: 05-29-2023 End: 05-29-2023 Telemedicine consultation with patient Cadence Camejo RD Work Phone: Diabetic Education [facility] Start: 05-14-2023 Telephone encounter Puthy Pick Up y GUM REMOVER.[employer] MAK[employer] Work Phone: Endocrinology Comment on above: Medication Authoriza tion (Lomaira) Start: 05-09-2023 Telephone encounter Puthy Pick Up y GUM REMOVER.[employer] Work Phone: Endocrinology Comment on above: Appointment Start: 04-26-2023 E-mail encounter fro m caregiver Ed Lombardidenice GUM REMOVER.[employer]OSSB[employer] MAKER Work Phone: [facility] Start: 04-26-2023 Follow-up encounter Puthy Pick Up y GUM REMOVER.[employer]OS[employer]OW MAKER Work Phone: Endocrinology Comment on above: Follow up Start: 04-26-2023 End: 04-26-2023 ambulatory Ed Vaz GUM REMOVER.[employer]SB[employer] MAKER Work Phone: Endocrinology Comment on above: Class 2 obesity with body mass index (BMI) of 37.0 to 37.9 in adult, unspecified obesity type, unspecified whether serious comorbidity present (Primary Dx) Start: 04-26-2023 End: 04-26-2023 Telemedicine consultation with patient Ed Vaz APRN.CROSSBOW MAKER Work Phone: [facility] Start: 04-16-2023 End: 04-16-2023 Office outpatient visit 25 minutes Morelia Chance PA-C Work Phone: [facility] Comment on above: Acute cough (Primary Dx); Exposure to the flu; Acute otitis media, left Start: 10-12-2022 E-mail encounter fro m caregiver Ed Vaz APRN.CROSSBOW MAKER Work Phone: [facility] Start: 10-12-2022 Follow-up encounter Putmicha Lombardiha y GUM REMOVER.[facility] Work Phone: Endocrinology Comment on above: Follow up Start: 10-12-2022 Telephone encounter Ed Bowman y GUM REMOVER.[facility] Work Phone: Endocrinology Comment on above: Appointment Start: 10-12-2022 End: 10-12-2022 ambulatory Putmicha Bowmany GUM REMOVER.[employer]OSSB[employer] MAKER Work Phone: Endocrinology Comment on above: Class 1 obesity with body mass index (BMI) of 34.0 to 34.9 in adult, unspecified obesity type, unspecified whether serious comorbidity present (Primary Dx) Start: 10-12-2022 End: 10-12-2022 Telemedicine consultation with patient Ed Vaz APRN.[facility] Work Phone: [facility] Start: 09-09-2022 ambulatory Lupe Grant MD Work Phone: Endocrinology Comment on above: Medicine Start: 08-01-2022 Telephone encounter Lupe barboza MD Work Phone: Endocrinology Comment on above: Medication Problem ( Ozempic) Start: 07-25-2022 Chart abstracting Lupe nicholas MD Work Phone: Endocrinology Comment on above: Medication Preauthor ization (Ozempic) Start: 07-20-2022 ambulatory Lupe Grant MD Work Phone: Endocrinology Comment on above: Medicine Start: 07-19-2022 Telephone encounter Lupe barboza MD Work Phone: Endocrinology Comment on above: prior auth (Patient called requesting a prior authorization for semaglutide (OZEMPIC) 0.25 mg or 0.5 mg(2 mg/1.5 mL) pen. Patient stated she was told it can take up to 3 weeks. //Pharmacist at [facility] [place] told pt they sent over forms to be completed by provider because they cannot fill prescriptions without the authorization. Patient can be contacted at [phone]./) Start: 07-17-2022 Telephone encounter Lupe barboza MD Work Phone: Endocrinology Comment on above: Medication Problem Start: 07-12-2022 End: 07-12-2022 Patient encounter procedure Lupe Grant MD Work Phone: Endocrinology Comment on above: Obesity, Class I, BM I 30-34.9 (Primary Dx); IFG (impaired fasting glucose); PCOS (polycystic ovarian syndrome) Start: 06-05-2022 End: 06-05-2022 Patient encounter procedure Lavern Lim MD Work Phone: Cardiology Comment on above: Screening for ischem ic heart disease (Primary Dx); PCOS (polycystic ovarian syndrome); Class 2 obesity due to excess calories without serious comorbidity with body mass index (BMI) of 39.0 to 39.9 in adult; Hypertriglyceridemia; Dyslipidemia (high LDL; low HDL); Elevated fasting glucose; History of pre-eclampsia; Pure hypercholesterolemia Start: 03-02-2022 Refill Mariana Hilario APRN.CNM Work Phone: OB/Gynecology Comment on above: Refill Request Start: 03-02-2022 Refill Mariaan Hilario APRN.CNM Work Phone: OB/Gynecology Comment on above: Refill Request Start: 02-25-2022 ambulatory Lupe Grant MD Work Phone: Endocrinology Comment on above: Medicine Start: 02-23-2022 End: 02-23-2022 ambulatory Lupe Grant MD Work Phone: Endocrinology Comment on above: Obesity, Class II, B NV 35-39.9 (Primary Dx); Impaired fasting glucose; PCOS (polycystic ovarian syndrome) Start: 02-23-2022 End: 02-23-2022 Telemedicine consultation with patient Lupe Grant MD Work Phone: [facility] Start: 02-13-2022 Letter encounter Jose Rashid od, MD Work Phone: [facility] Start: 02-03-2022 E-mail encounter fro m caregiver Mariana Hilario APRN.CNM Work Phone: [facility] Start: 02-03-2022 Follow-up encounter Mariana sierra APRN.CNM Work Phone: OB/Gynecology Comment on above: Follow up Start: 01-25-2022 End: 01-25-2022 ambulatory Mariana Hilario APRN.CNM Work Phone: OB/Gynecology Comment on above: PCOS (polycystic ova savannah syndrome) (Primary Dx); Class 2 obesity due to excess calories without serious comorbidity with body mass index (BMI) of 39.0 to 39.9 in adult; Hypertriglyceridemia; Dyslipidemia (high LDL; low HDL); Elevated testosterone level; Elevated fasting glucose; History of pre-eclampsia; Secondary amenorrhea Start: 01-25-2022 End: 01-25-2022 Telemedicine consultation with patient Mariana Hilario APRN.CNM Work Phone: [facility] Start: 01-10-2022 End: 01-10-2022 ambulatory Mariana Hilario APRN.CNM Work Phone: OB/Gynecology Comment on above: Unintended weight ga in (Primary Dx); Hot flashes; Screening cholesterol level; Secondary amenorrhea; Class 2 obesity due to excess calories without serious comorbidity with body mass index (BMI) of 39.0 to 39.9 in adult Start: 01-10-2022 End: 01-10-2022 Telemedicine consultation with patient Mariana Hilario APRN.CNM Work Phone: [facility] Start: 12-18-2021 End: 12-18-2021 Patient encounter procedure Jose Brink APRN.[employer]OSSB[employer] MAKER Work Phone: [facility] Comment on above: Generalized abdomina l pain (Primary Dx); Upper back pain Start: 11-14-2021 Letter encounter Jose Rashid od, MD Work Phone: [facility] Start: 08-19-2021 End: 08-19-2021 Patient encounter procedure Eric Gaspar GUM REMOVER.[employer] Work Phone: [facility] Comment on above: Suspected COVID-19 v irus infection (Primary Dx) Start: 08-14-2021 Letter encounter Jose Rashid od, MD Work Phone: [facility] [employer] Start: 08-03-2021 End: 08-03-2021 Patient encounter procedure Storm Mueller DO Work Phone: Family Practice Comment on above: Muscle spasm of righ t shoulder (Primary Dx) Start: 08-02-2021 Telephone encounter No Pcp Int [facility] [place] Comment on above: Extended Work Excuse Start: 08-02-2021 End: 08-02-2021 Subsequent hospital visit by physician [facility] [place] Work Phone: Radiology Comment on above: Acute pain of right shoulder [M25.511] Start: 03-02-2021 End: 03-02-2021 Subsequent hospital visit by physician Xr [facility] [place] Work Phone: Radiology Comment on above: Acute pain of left s houlder [M25.512] Start: 02-07-2021 End: 02-07-2021 Subsequent hospital visit by physician Xr [facility] Work Phone: Radiology Comment on above: Acute left ankle emely n [M25.572] Start: 06-27-2017 End: 06-28-2017 Ambulatory Venancio Riddle Facility[place] Start: 05-15-2017 End: 05-18-2017 Evaluation and management of inpatient Venancio Riddle Facility:[facility] Start: 03-17-2017 End: 03-17-2017 Ambulatory Venancio Riddle Facility:[facility] Start: 02-19-2017 End: 02-20-2017 Ambulatory Venancio Riddle Facility:[facility] Start: 10-30-2016 End: 10-31-2016 Ambulatory Venancio Riddle Facility:[facility] Start: 10-12-2016 End: 10-13-2016 Ambulatory Venancio Riddle Facility:[facility] Start: 09-27-2016 End: 09-27-2016 Emergency department patient visit Jenny Mcguire Facility:[facility] Start: 09-14-2016 End: 09-14-2016 Emergency department patient visit Jenny Mcguire Facility:[facility] Procedures Date Procedure Procedure Detail Performing Clinician Start: 07-30-2024 Measurement of pH in vaginal fluid specimen using nitrazine yellow for detection of rupture of amniotic membrane No Primary Care Physician Comment on above: Amniotic fluid not p resent indicates No Rupture of FetalMembranes at time of specimen collection. Start: 07-25-2024 Estimated creatinine clearance No Primary Care Physician Start: 07-25-2024 Urnls dip stick/tabl et reagent auto microscopy No Primary Care Physician Start: 07-25-2024 Urine culture No Primar y Care Physician Start: 07-23-2024 Urnls dip stick/tabl et rgnt non-auto w/o micrscp Mariana Hilario GUM REMOVER.CNM Work Phone: Start: 07-16-2024 Urnls dip stick/tabl et rgnt non-auto w/o micrscp Jenise Nieves MD Work Phone: Start: 07-16-2024 Us preg uterus after 1st trimest 02/05 gestation Alfred Childress MD Work Phone: Start: 07-02-2024 Urnls dip stick/tabl et rgnt non-auto w/o micrscp Elsa Chaudhary APRN.CNM Work Phone: Start: 06-18-2024 Us preg uterus after 1st trimest 02/05 gestation Alfred Childress MD Work Phone: Start: 05-21-2024 Us preg uterus after 1st trimest 02/05 gestation Susana Castillo MD Work Phone: Start: 03-28-2024 Us preg uterus after 1st trimest 02/05 gestation Susana Castillo MD Work Phone: Start: 02-28-2024 Us preg uterus after 1st trimest 02/05 gestation Elsa Chaudhary GUM REMOVER.CNM Work Phone: Start: 01-31-2024 Us nuchal translucency 1st gestation Susana Castillo MD Work Phone: Start: 12-28-2023 Us pelvic nonobstetr ic real-time image complete Elkin Widlerpanfilo GUM REMOVER.[employer]KER Work Phone: Start: 12-24-2023 Us uterus 1 4 wk transabdl 02/05 gestat Segundo Lopez DO Work Phone: Start: 12-24-2023 Urinalysis complete W Reflex Culture panel - Urine Segundo Lopez DO Work Phone: Start: 12-24-2023 Urnls dip stick/tabl et reagent auto microscopy Segundo Lopez DO Work Phone: Start: 12-24-2023 Blood typing serolog ic rh (d) Segundo Lopez DO Work Phone: Start: 12-24-2023 Gonadotropin chorion ic quantitative Segundo Lopez DO Work Phone: Start: 12-07-2023 Antibody screen ALFRED CHILDRESS Comment on above: Order Comment: Speci men Type: URINE SPECIMEN Ordering Facility: [facility] Address: [address] [place] [address] Performed By: #### 2 890-2 #### [facility] CLIA [id number] [address] [place] [address] [place] Start: 12-07-2023 Us uterus l imited fetuses Elkin Martinez GUM REMOVER.[employer] Work Phone: Start: 11-23-2023 Microscopic observat ion [Identifier] in Cervix by Cyto stain Segundo Lopez DO Work Phone: Start: 04-16-2023 INFLUENZA A&B MOLECU LAR (POC) Morelia Chance PA-C Work Phone: Start: 08-02-2021 Radex shoulder compl ete minimum 2 views Jose Brink GUM REMOVER.[employer]ER Work Phone: Start: 03-02-2021 Radex shoulder compl ete minimum 2 views Merly Jefferson GUM REMOVER.[employer]ER Work Phone: Start: 02-07-2021 Radex ankle complete minimum 3 views Aravind Varma GUM REMOVER.[employer] Work Phone: Start: 06-16-2020 Adult depression scr eening assessment No Pcp Start: 09-13-2018 Follow-up visit Start: 03-28-2018 Microscopic observat ion [Identifier] in Cervix by Cyto stain Jose Haynes MD Work Phone: Plan of Treatment Date Care Activity Detail Author Start: 05-13-2043 Shingles (RZV) Vaccine (1 of 2) Shingles (RZV) Vaccine (1 of 2) [facility] Start: 05-13-2043 Zoster Vaccines (1 of 2) Zoster Vaccines (1 of 2) [facility] Start: 05-21-2034 Urine microalbumin profile DTaP,Tdap,Td Vaccine (7 - Td or Tdap) [facility] Start: 11-22-2028 Screening for malignant neoplasm of cervix Cervical Cancer Screening [facility] Start: 05-19-2027 DTaP/Tdap/Td Vaccines (6 - Td or Tdap) DTaP/Tdap/Td Vaccines (6 - Td or Tdap) [facility] Start: 05-19-2027 Tetanus vaccination Tetanus (Td or Tdap) [facility] Start: 05-19-2027 Urine microalbumin profile [facility] Start: 11-22-2026 Screening for malignant neoplasm of cervix [facility] Start: 12-07-2025 Screening for malignant neoplasm of cervix Pap Testing [facility] Start: 05-21-2025 Covid-19 Vaccine ( season) Covid-19 Vaccine ( season) [facility] Comment on above: Postponed from 10/07/2023 (Declined at t his time) Start: 11-24-2024 End: 11-24-2024 Patient encounter procedure 11/24/2024 2:45 PM EDT Office Visit OB/Gynecology [address] [place] [address] Mariana Hilario APRN.CNM [address] [place] [address] annual OB/Gynecology Comment on above: annual Start: 08-27-2024 End: 08-27-2024 ambulatory 08/27/2024 4:30 PM EDT [facility] Endocrinology [address] [place] [address] Ed Vaz, GUM REMOVER.[employer]KER [address] [place] [address] Check up Endocrinology Comment on above: Check up Start: 08-11-2024 End: 08-11-2024 Patient encounter procedure 08/11/2024 3:40 PM EDT Office Visit Endocrinology [address] [place] [address] John Banerjee MD [address] [place] [address] 2 month f/u-elevated TSH Endocrinology Comment on above: 2 month f/u-elevated TSH Start: 08-11-2024 End: 08-11-2024 Patient encounter procedure 08/11/2024 10:50 AM EDT Office Visit OB/Gynecology [address] [place] [address] Jenise Nieves MD [address] [place] [address] 1 week incision check OB/Gynecology Comment on above: 1 week incision check Start: 08-05-2024 ambulatory Ambulatory Facility:[facility] Start: 07-31-2024 End: 07-31-2024 Patient encounter procedure 07/31/2024 11:20 AM EDT Routine Office Visit OB/Gynecology [address] [place] [address] Eugenia Craft MD [address] [place] [address] OB - Pre Op C/S 08/05 @ [facility] OB/Gynecology Comment on above: OB - Pre Op C/S 08/05 @ [facility] Start: 07-31-2024 End: 07-31-2024 Patient encounter procedure OB/Gynecology Comment on above: OB - Pre Op C/S 08/04 @ [facility] NST Start: 07-30-2024 Nonstress test [facility] Start: 07-30-2024 Obstetric monitoring [facility] Start: 07-30-2024 Vital signs measurements [facility] Start: 07-30-2024 [facility] Start: 07-30-2024 End: 07-30-2024 Patient encounter procedure OB/Gynecology Comment on above: NST OB Routine Start: 07-30-2024 Patient discharge [facility] Start: 07-25-2024 Nonstress test [facility] Start: 07-25-2024 Obstetric monitoring [facility] Start: 07-25-2024 Vital signs measurements [facility] Start: 07-25-2024 [facility] Start: 07-25-2024 Bacteria identified in Urine by Culture Urine Culture [facility] Start: 07-25-2024 End: 07-25-2024 Patient encounter procedure 07/25/2024 12:00 PM EDT Office Visit Endocrinology [address] [place] [address] John Banerjee MD [address] [place] [address] 2 month f/u-elevated TSH Endocrinology Comment on above: 2 month f/u-elevated TSH Start: 07-25-2024 Patient discharge [facility] Start: 07-23-2024 End: 07-23-2024 Patient encounter procedure OB/Gynecology Comment on above: NST OB Routine Start: 07-16-2024 End: 07-16-2024 Patient encounter procedure OB/Gynecology Comment on above: NST OB Routine Growth 36w Start: 07-11-2024 End: 07-11-2024 Patient encounter procedure 07/11/2024 2:20 PM EDT Office Visit Endocrinology [address] [place] [address] John Banerjee MD [address] [place] [address] 2 month f/u-elevated TSH Endocrinology Comment on above: 2 month f/u-elevated TSH Start: 07-02-2024 End: 07-02-2024 Patient encounter procedure 07/02/2024 9:45 AM EDT Routine Office Visit OB/Gynecology [address] [place] [address] Elsa Chaudhary APRN.[facility] [address] [place] [address] OB Routine OB/Gynecology Comment on above: OB Routine Start: 06-24-2024 End: 06-24-2024 Patient encounter procedure 06/24/2024 9:00 AM EDT Office Visit Endocrinology [address] [place] [address] John Banerjee MD [address] [place] [address] 2 month f/u-elevated TSH Endocrinology Comment on above: 2 month f/u-elevated TSH Start: 06-18-2024 End: 06-18-2024 Patient encounter procedure Maternal Medicine Comment on above: Growth OB Routine Start: 06-09-2024 End: 06-09-2024 Patient encounter procedure 06/09/2024 9:00 AM EDT Office Visit Endocrinology [address] [place] [address] John Banerjee MD [address] [place] [address] 2 month f/u-elevated TSH Endocrinology Comment on above: 2 month f/u-elevated TSH Start: 06-04-2024 End: 06-04-2024 Patient encounter procedure 06/04/2024 9:45 AM EDT Routine Office Visit OB/Gynecology [address] [place] [address] Mariana Hilario APRN.CNM [address] [place] [address] OB Routine OB/Gynecology Comment on above: OB Routine Start: 06-03-2024 End: 06-03-2024 Patient encounter procedure 06/03/2024 2:20 PM EDT Office Visit Endocrinology [address] [place] [address] John Banerjee MD [address] [place] [address] 2 month f/u-elevated TSH Endocrinology Comment on above: 2 month f/u-elevated TSH Start: 05-26-2024 End: 05-26-2024 Patient encounter procedure 05/26/2024 11:40 AM EDT Office Visit Endocrinology [address] [place] [address] John Banerjee MD [address] [place] [address] 2 month f/u-elevated TSH Endocrinology Comment on above: 2 month f/u-elevated TSH Start: 05-21-2024 End: 08-20-2024 Protein/Creatinine [Mass Ratio] in Urine [facility] Work Phone: Comment on above: Expected: 05/21/2024, Expires: Start: 05-21-2024 End: 05-21-2024 ambulatory [place] [facility] Start: 05-21-2024 End: 05-21-2024 Patient encounter procedure Maternal Medicine Comment on above: Growth Growth/OB Start: 04-25-2024 End: 04-25-2024 Patient encounter procedure 04/25/2024 10:40 AM EDT Routine Office Visit OB/Gynecology [address] [place] [id number] Jenise Nieves MD [address] [place] [address] OB OB/Gynecology Comment on above: OB Start: 04-22-2024 End: 07-22-2024 ANEMIA REFLEX PANEL ANEMIA REFLEX PANEL Lab Routine 24 weeks gestation of Supervision of high risk in second trimester Expected: 04/22/2024, Expires: 07/22/2024 [facility] Comment on above: Expected: 04/22/2024, Expires: Start: 04-22-2024 End: 04-22-2025 GESTATIONAL GLUCOSE SCREEN, 1-HOUR, 50 GRAM, NON-FASTING GESTATIONAL GLUCOSE SCREEN, 1-HOUR, 50 GRAM, NON-FASTING Lab Routine 24 weeks gestation of Supervision of high risk in second trimester Screening for diabetes mellitus Expected: 04/22/2024, Expires: 04/22/2025 [facility] Work Phone: Comment on above: Expected: 04/22/2024, Expires: Start: 04-22-2024 End: 04-22-2025 SYPHILIS TREPONEMAL W/REFLEX SYPHILIS TREPONEMAL W/REFLEX Lab Routine 24 weeks gestation of Supervision of high risk in second trimester Expected: 04/22/2024, Expires: 04/22/2025 [facility] Comment on above: Expected: 04/22/2024, Expires: Start: 04-16-2024 End: 04-16-2024 ambulatory 04/16/2024 1:30 PM EDT Procedure Pediatric Cardiology [address] [place] [address] Reagan Bermeo MD [address] [place] [address] Single umbilical artery affecting management of mother, antepartum, single gesta... Pediatric Cardiology Comment on above: Single umbilical artery affecting manage ment of mother, antepartum, single gesta... Start: 04-16-2024 End: 04-16-2024 Patient encounter procedure 04/16/2024 1:30 PM EDT Office Visit Pediatric Cardiology [address] [place] [address] Single umbilical artery affecting management of mother, antepartum, single gesta... Pediatric Cardiology Comment on above: Single umbilical artery affecting manage ment of mother, antepartum, single gesta... Start: 03-28-2024 End: 03-28-2024 Patient encounter procedure Maternal Medicine Comment on above: Anatomy Scan OB Routine Start: 03-10-2024 End: 03-10-2024 Patient encounter procedure 03/10/2024 10:00 AM EST Office Visit Endocrinology [address] [place], [place] [id number] John Banerjee MD [address] [place] [address] Elevated TSH [R79.89] Endocrinology Comment on above: Elevated TSH [R79.89] Start: 03-07-2024 End: 03-07-2024 ambulatory 03/07/2024 9:30 AM EST Results Only [facility] [address] [place] [address] [facility] Start: 03-03-2024 End: 03-03-2024 ambulatory 03/03/2024 7:30 AM EST [facility] Endocrinology [address] [place] [address] Ed Vaz, ZANE.[employer] MAKER [address] [place], [place] [id number] Check up Endocrinology Comment on above: Check up Start: 02-28-2024 End: 05-29-2024 Thyrotropin [Units/volume] in Serum or Plasma [facility] Work Phone: Comment on above: Expected: 02/28/2024, Expires: Start: 02-28-2024 End: 02-28-2024 Patient encounter procedure OB/Gynecology Comment on above: 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]; Obesity affecting in first trimester, unspecified obesity type [O99.211] Start: 02-20-2024 End: 02-20-2024 Patient encounter procedure 02/20/2024 9:30 AM EST Appointment Mammogram [address] [place] [address] US BREAST LTD LEFT Mammogram Comment on above: US BREAST LTD LEFT Start: 02-11-2024 End: 02-11-2024 Patient encounter procedure 02/11/2024 8:40 AM EST Office Visit Endocrinology [address] [place] [address] John Banerjee MD [address] [place] [address] Elevated TSH [R79.89] Endocrinology Comment on above: Elevated TSH [R79.89] Start: 02-08-2024 End: 02-08-2024 ambulatory 02/08/2024 2:00 PM EST Results Only [facility] Draw Station [address] [place] [address] [facility] Station Start: 01-31-2024 End: 01-30-2025 OBSTETRIC ULTRASOUND WHI OBSTETRIC ULTRASOUND WHI Anc Imaging Routine Two vessel cord Obesity affecting in first trimester, unspecified obesity type Expected: 01/31/2024, Expires: 01/30/2025 [facility] Work Phone: Comment on above: Expected: 01/31/2024, Expires: Start: 01-31-2024 End: 01-31-2024 Patient encounter procedure Maternal Medicine Comment on above: Nuchal OB Routine Start: 01-28-2024 End: 01-28-2024 Patient encounter procedure 01/28/2024 4:30 PM EST Routine Office Visit OB/Gynecology [address] [place] [address] Elsa Chaudhary APRN.CN [address] [place] [address] OB/vaginal itching OB/Gynecology Comment on above: OB/vaginal itching Start: 01-21-2024 End: 01-21-2024 Patient encounter procedure 01/21/2024 1:00 PM EST Office Visit Endocrinology [address] [place] [address] John Banerjee MD [address] [place] [address] Elevated TSH [R79.89] Endocrinology Comment on above: Elevated TSH [R79.89] Start: 01-11-2024 End: 01-11-2024 Patient encounter procedure 01/11/2024 1:00 PM EST Office Visit Endocrinology [address] [place] [address] John Banerjee MD [address] [place] [address] Elevated TSH [R79.89] Endocrinology Comment on above: Elevated TSH [R79.89] Start: 01-10-2024 End: 01-10-2024 ambulatory 01/10/2024 9:15 AM EST Results Only [facility] Draw Station [address] [place] [address] [facility] Station Start: 01-08-2024 End: 01-08-2024 Patient encounter procedure 01/08/2024 12:50 PM EST Routine Office Visit OB/Gynecology [address] [place] [address] Jenise Nieves MD [address] [place] [address] 2nd OB OB/Gynecology Comment on above: 2nd OB Start: 01-06-2024 End: 04-06-2024 Chromosome 21 trisomy [Presence] in Blood or Tissue by Cytogenetics [id number] PLUS Lab Routine Encounter for supervision of high risk in first trimester, antepartum Expected: 01/06/2024, Expires: 04/06/2024 [facility] Comment on above: Expected: 01/06/2024, Expires: Start: 12-28-2023 End: 12-27-2024 NUCHAL TRANSLUCENCY WHI NUCHAL TRANSLUCENCY WHI Anc Imaging Routine 7 weeks gestation of Encounter for supervision of high risk in first trimester, antepartum Thyroid disease Expected: 12/28/2023, Expires: 12/27/2024 [facility] Comment on above: Expected: 12/28/2023, Expires: Start: 12-28-2023 End: 12-27-2024 OBSTETRIC ULTRASOUND WHI OBSTETRIC ULTRASOUND WHI Anc Imaging Routine 7 weeks gestation of Encounter for supervision of high risk in first trimester, antepartum Thyroid disease Expected: 12/28/2023, Expires: 12/27/2024 [facility] Comment on above: Expected: 12/28/2023, Expires: Start: 12-28-2023 End: 03-28-2024 Thyrotropin [Units/volume] in Serum or Plasma THYROID STIMULATING HORMONE Lab Routine 7 weeks gestation of Encounter for supervision of high risk in first trimester, antepartum Thyroid disease Expected: 12/28/2023, Expires: 03/28/2024 [facility] Work Phone: Comment on above: Expected: 12/28/2023, Expires: Start: 12-28-2023 End: 12-06-2024 US Pelvis PELVIC US WHI Anc Imaging Routine Encounter for supervision of high risk in first trimester, antepartum with uncertain dates in first trimester Expected: 12/28/2023, Expires: 12/06/2024 [facility] Comment on above: Expected: 12/28/2023, Expires: Start: 12-28-2023 End: 12-28-2023 Patient encounter procedure 12/28/2023 10:20 AM EST Routine Office Visit OB/Gynecology [address] [place] [address] Susana Castillo MD [address] [place] [address] 2nd OB + US results OB/Gynecology Comment on above: 2nd OB + US results Start: 12-28-2023 End: 12-28-2023 ambulatory 12/28/2023 9:30 AM EST Procedure OB/Gynecology [address] [place] [address] Remote, [employer] System Operator [employer] [address] [place] [address] O09.91 (ICD-10-CM) - Encounter for supervision of high risk in first trimester, antepartum OB/Gynecology Comment on above: O09.91 (ICD-10-CM) - Encounter for super vision of high risk in first trimester, antepartum Start: 12-18-2023 End: 12-18-2023 Patient encounter procedure 12/18/2023 3:30 PM EST Appointment Radiology [address] [place] [address] US BREAST LTD LEFT Radiology Comment on above: US BREAST LTD LEFT Start: 12-17-2023 End: 12-17-2023 ambulatory 12/17/2023 9:45 AM EST Results Only [facility] [address] [facility] [place] [address] [facility] Start: 12-14-2023 End: 12-14-2023 ambulatory 12/14/2023 9:15 AM EST Results Only [facility] [address] [facility] [place] [address] [facility] Start: 12-13-2023 End: 12-13-2023 ambulatory 12/13/2023 9:45 AM EST Results Only [facility] [address] [place] [address] [facility] Start: 12-12-2023 End: 12-12-2023 ambulatory 12/12/2023 9:15 AM EST Results Only [facility] [address] [place] [address] [facility] Start: 12-10-2023 End: 12-10-2023 ambulatory 12/10/2023 9:45 AM EST Results Only [facility] [address] [place] [address] [facility] Start: 12-08-2023 PAP TESTING PAP TESTING [facility] Start: 12-08-2023 Screening for malignant neoplasm of cervix [facility] Start: 12-08-2023 End: 12-08-2023 Patient encounter procedure 12/08/2023 11:50 AM EDT Immunization [facility] [place] [address] [place] [address] Sylvia, Immunization Clinic Nurse [address] [place] [address] Flu shot [facility] [place] Comment on above: Flu shot Start: 12-07-2023 End: 03-07-2024 CARRIER SCREEN, STANDARD [facility] Comment on above: Expected: 12/07/2023, Expires: Start: 12-07-2023 End: 03-07-2024 Hemoglobin A1c in Blood [facility] Comment on above: Expected: 12/07/2023, Expires: Start: 12-07-2023 End: 03-07-2024 Hepatitis B virus surface Ag [Presence] in Serum [facility] Comment on above: Expected: 12/07/2023, Expires: Start: 12-07-2023 End: 03-07-2024 Hepatitis C virus Ab [Presence] in Serum [facility] Comment on above: Expected: 12/07/2023, Expires: Start: 12-07-2023 End: 03-07-2024 HIV 1+2 Ab [Presence] in Serum or Plasma by Immunoassay [facility] Comment on above: Expected: 12/07/2023, Expires: Start: 12-07-2023 End: 12-06-2024 OBSTETRIC ULTRASOUND WHI OBSTETRIC ULTRASOUND WHI Anc Imaging Routine with uncertain dates in first trimester Expected: 12/07/2023, Expires: 12/06/2024 [facility] Comment on above: Expected: 12/07/2023, Expires: Start: 12-07-2023 End: 03-07-2024 Protein/Creatinine [Mass Ratio] in Urine [facility] Comment on above: Expected: 12/07/2023, Expires: Start: 12-07-2023 End: 03-07-2024 RUBELLA IGG ANTIBODY [facility] Comment on above: Expected: 12/07/2023, Expires: Start: 12-07-2023 End: 03-07-2024 SYPHILIS TREPONEMAL W/REFLEX [facility] Work Phone: Comment on above: Expected: 12/07/2023, Expires: Start: 12-07-2023 End: 03-07-2024 Thyrotropin [Units/volume] in Serum or Plasma [facility] Comment on above: Expected: 12/07/2023, Expires: Start: 12-07-2023 End: 03-07-2024 TYPE + SCREEN [facility] Comment on above: Expected: 12/07/2023, Expires: Start: 12-07-2023 End: 12-07-2023 Patient encounter procedure 12/07/2023 11:00 AM EDT Initial Office Visit OB/Gynecology [address] [place] [address] Elkin Martinez APRN.[employer] [address] [place] [address] OB/Gynecology Start: 11-23-2023 End: 11-23-2023 Patient encounter procedure 11/23/2023 10:45 AM EDT Office Visit OB/Gynecology [address] [place] [address] Mariana Hilario APRN.CNM [address] [place] [address] Check up OB/Gynecology Comment on above: Check up Start: 11-21-2023 End: 11-21-2023 ambulatory 11/21/2023 7:30 AM EDT [facility] Endocrinology [address] [place] [address] Ed Vaz APRN.[employer]KER [address] [place] [address] Check up Endocrinology Comment on above: Check up Start: 10-07-2023 Covid-19 Vaccine ( season) Covid-19 Vaccine () [facility] Start: 10-07-2023 Influenza vaccination [facility] Start: 08-21-2023 End: 08-21-2023 Patient encounter procedure 08/21/2023 11:30 AM EDT Office Visit OB/Gynecology [address] [place] [address] Mariana Hilario APRN.CNM [address] [place] [address] Check up OB/Gynecology Comment on above: Check up Start: 08-06-2023 End: 08-06-2023 ambulatory 08/06/2023 7:30 AM EDT [facility] Endocrinology [address] [place] [address] Ed Vaz APRN.[employer] [address] [place] [address] 2 months Endocrinology Comment on above: 2 months Start: 06-25-2023 End: 06-25-2023 Patient encounter procedure 06/25/2023 11:30 AM EDT Office Visit OB/Gynecology [address] [place], [place] [id number] Mariana Hilario APRN.CNM [address] [place] [address] annual OB/Gynecology Comment on above: annual Start: 06-18-2023 End: 06-18-2023 Patient encounter procedure 06/18/2023 10:00 AM EDT Office Visit Cardiology [address] [place] [id number] Lavern Lim MD [address] [facility], [address] [place] [address] 1 yr f/u Cardiology Comment on above: 1 yr f/u Start: 06-06-2023 End: 06-06-2023 Patient encounter procedure 06/06/2023 10:00 AM EDT Office Visit Endocrinology [id number] [place] [address] Ed Vaz, ZANE.CROSSBOW MAKER [address] [place] [address] Check up Endocrinology Comment on above: Check up Start: 06-05-2023 [facility] Start: 05-13-2023 Screening for malignant neoplasm of cervix HPV Testing [facility] Start: 02-05-2023 Behavioral Health Screening Behavioral Health Screening [facility] Start: 02-05-2023 Depression Assessment Depression Assessment [facility] Start: 10-06-2022 Covid-19 Vaccine () Covid-19 Vaccine () [facility] Start: 10-06-2022 Influenza vaccination [facility] Start: 09-05-2022 End: 11-05-2022 Lipid 1996 panel - Serum or Plasma LIPID PANEL BASIC Lab Routine Pure hypercholesterolemia Expected: 09/05/2022, Expires: 11/05/2022 [facility] Work Phone: Comment on above: Expected: 09/05/2022, Expires: Start: 02-05-2022 DEPRESSION ASSESSMENT DEPRESSION ASSESSMENT [facility] Start: 01-10-2022 End: 02-05-2023 17-Hydroxyprogesterone [Mass/volume] in Serum or Plasma HYDROXYPROGESTERO-17 Lab Routine Secondary amenorrhea Expected: 01/10/2022, Expires: 03/12/2022 [facility] Work Phone: Comment on above: Expected: 01/10/2022, Expires: 3 Start: 01-10-2022 End: 03-12-2022 DHEA-S BLD DHEA-S BLD Lab Routine Secondary amenorrhea Expected: 01/10/2022, Expires: 03/12/2022 [facility] Work Phone: Comment on above: Expected: 01/10/2022, Expires: 3 Start: 01-10-2022 End: 03-12-2022 Lipid 1996 panel - Serum or Plasma LIPID PANEL BASIC Lab Routine Screening cholesterol level Expected: 01/10/2022, Expires: 03/12/2022 [facility] Work Phone: Comment on above: Expected: 01/10/2022, Expires: 3 Start: 01-10-2022 End: 03-12-2022 Prolactin [Mass/volume] in Serum or Plasma PROLACTIN BLD Lab Routine Secondary amenorrhea Expected: 01/10/2022, Expires: 03/12/2022 [facility] Work Phone: Comment on above: Expected: 01/10/2022, Expires: 3 Start: 01-10-2022 End: 03-12-2022 TESTOSTERONE, FREE AND TOTAL TESTOSTERONE, FREE AND TOTAL Lab Routine Secondary amenorrhea Expected: 01/10/2022, Expires: 03/12/2022 [facility] Work Phone: Comment on above: Expected: 01/10/2022, Expires: 3 Start: 01-10-2022 End: 03-12-2022 Triiodothyronine (T3) [Mass/volume] in Serum or Plasma T3 BLD Lab Routine Secondary amenorrhea Expected: 01/10/2022, Expires: 03/12/2022 [facility] Work Phone: Comment on above: Expected: 01/10/2022, Expires: Start: 11-05-2021 Influenza vaccination Influenza Vaccine (#1) [facility] Start: 10-06-2021 Influenza vaccination [facility] Start: 09-05-2021 Influenza vaccination Influenza Vaccine (#1) [facility] Start: 06-16-2021 Adult depression screening assessment DEPRESSION SCREENING [facility] Start: 03-28-2021 Screening for malignant neoplasm of cervix Pap Smear [facility] Start: 03-04-2021 COVID-19 VACCINE (3 - Booster for Pfizer series) COVID-19 VACCINE (3 - Booster for Pfizer series) [facility] Start: 02-05-2021 DEPRESSION ASSESSMENT DEPRESSION ASSESSMENT [facility] Start: 11-27-2020 COVID-19 VACCINE (3 - Booster for Pfizer series) COVID-19 VACCINE (3 - Booster for Pfizer series) [facility] Start: 11-27-2020 COVID-19 VACCINE (3 - Pfizer series) COVID-19 VACCINE (3 - Pfizer series) [facility] Start: 2014 Screening for malignant neoplasm of cervix HPV/Cotest [facility] Start: 05-13-2011 Anxiety Screening Anxiety Screening [facility] Start: 05-13-2011 Depression Screening Depression Screening [facility] Start: 2006 Varicella vaccination Varicella Vaccines (1 of 2 - 13+ 2-dose series) [facility] Start: 1993 Basic metabolic 2000 panel - Serum or Plasma Basic Metabolic Panel [facility] Start: 1993 Lipid panel Lipid Panel [facility] Start: 1993 Yearly Adult Physical Yearly Adult Physical [facility] 17-Hydroxyprogestero ne [Mass/volume] in Serum or Plasma HYDROXYPROGESTERO-17 Lab Routine Secondary amenorrhea 01/11/2022 8:53 AM EST [facility] Work Phone: Bacteria identified in Urine by Culture URINE CULTURE Microbiology Routine with uncertain dates in first trimester 12/07/2023 11:43 AM EDT [facility] BACTERIAL VAGINOSIS NAAT BACTERIAL VAGINOSIS NAAT Lab Routine Vaginal discharge Ordered: 11/23/2023 [facility] Comment on above: Ordered: 11/23/2023 BACTERIAL VAGINOSIS NAAT BACTERIAL VAGINOSIS NAAT Lab Routine Vaginal itching 01/31/2024 9:17 AM [facility] DARYA/TRICHOMONAS NAAT DARYA/TRICHOMONAS NAAT Lab Routine Vaginal discharge Ordered: 11/23/2023 [facility] Comment on above: Ordered: 11/23/2023 DARYA/TRICHOMONAS NAAT DARYA/TRICHOMONAS NAAT Lab Routine Vaginal itching 01/31/2024 9:17 AM [facility] Work Phone: Chlamydia trachomatis+Neisseria gonorrhoeae DNA [Presence] in Unspecified specimen by MARK ANTHONY with probe detection GONORRHEA/CHLAMYDIA NAAT Lab Routine with uncertain dates in first trimester 12/07/2023 11:43 AM EDT [facility] End: 12-06-2024 Choriogonadotropin.beta subunit [Units/volume] in Serum or Plasma HCG QUANTITATIVE Lab Routine Encounter for supervision of high risk in first trimester, antepartum with uncertain dates in first trimester 2x per week for 6 Occurrences starting 12/07/2023 until 12/06/2024 [facility] Comment on above: 2x per week for 6 Occurrences starting 1 02/05/2023 until 12/06/2024 COVID & INFLUENZA A/ B & RSV PCR, ROUTINE COVID & INFLUENZA A/B & RSV PCR, ROUTINE Microbiology Routine Viral illness 02/14/2024 2:51 PM [facility] Work Phone: DHEA-S BLD DHEA-S BLD Lab R outine Secondary amenorrhea 01/11/2022 8:53 AM [facility] Work Phone: End: 05-31-2023 ECG COMPLETE ECG COMPLETE ECG Routine Screening for ischemic heart disease 1 Occurrences starting 05/30/2022 until 05/31/2023 [facility] Work Phone: Comment on above: 1 Occurrences starting 05/30/2022 until 05/31/2023 End: 03-31-2025 ECHO ECHO Cardiology Routine Single umbilical artery affecting management of mother, antepartum, single gestation 21 weeks gestation of 1 Occurrences starting 03/31/2024 until 03/31/2025 [facility] Work Phone: Comment on above: 1 Occurrences starting 03/31/2024 until 03/31/2025 End: 12-24-2023 Extra Urine [facility] Work Phone: Comment on above: Once for 1 Occurrences starting 12/24/19 24 until 12/24/2023 End: 09-18-2024 nonstress test NON-STRESS TEST Procedures Routine Single umbilical artery affecting management of mother, antepartum, single gestation (HCC) High-risk in third trimester (HCC) Once per week for 4 Occurrences starting 05/21/2024 until 09/18/2024 [facility] Comment on above: Once per week for 4 Occurrences starting 05/21/2024 until 09/18/2024 Lipid 1996 panel - Serum or Plasma LIPID PANEL BASIC Lab Routine Screening cholesterol level 01/11/2022 8:53 AM [employer] [facility] Work Phone: End: 01-12-2025 MG Breast - bilateral Diagnostic MYESHA DIAGNOSTIC BILATERAL Radiology Routine Inversion of both nipples 1 Occurrences starting 12/14/2023 until 01/12/2025 [facility] Work Phone: Comment on above: 1 Occurrences starting 12/14/2023 until 01/12/2025 End: 09-18-2024 OBSTETRIC ULTRASOUND WHI OBSTETRIC ULTRASOUND WHI Anc Imaging Routine Single umbilical artery affecting management of mother, antepartum, single gestation (HCC) 28 weeks gestation of (HCC) High-risk in third trimester (HCC) Every 3 weeks for 3 Occurrences starting 05/21/2024 until 09/18/2024 [facility] Comment on above: Every 3 weeks for 3 Occurrences starting 05/21/2024 until 09/18/2024 PAP TEST PAP TEST Lab Nils baltazar Encounter for gynecological examination (general) (routine) with abnormal findings Screening for cervical cancer Encounter for screening for human papillomavirus (HPV) Ordered: 11/23/2023 [facility] Work Phone: Comment on above: Ordered: 11/23/2023 Patient Education [facility] Work Phone: Patient referral [facility] Work Phone: Prolactin [Mass/volu me] in Serum or Plasma PROLACTIN BLD Lab Routine Secondary amenorrhea 01/11/2022 8:53 AM [facility] Work Phone: ROUTINE, GR OUP B STREPTOCOCCUS BY PCR ROUTINE, GROUP B STREPTOCOCCUS BY PCR Microbiology Routine 36 weeks gestation of ([facility]) Supervision of high risk in third trimester ([facility]) 07/16/2024 10:28 AM EDT [facility] Work Phone: SARS-CoV-2 (COVID-19 ) RNA [Presence] in Respiratory specimen by MARK ANTHONY with probe detection 2019 CORONAVIRUS Microbiology Routine Suspected COVID-19 virus infection Ordered: 08/19/2021 [facility] Work Phone: Comment on above: Ordered: 08/19/2021 TESTOSTERONE, FREE A ND TOTAL TESTOSTERONE, FREE AND TOTAL Lab Routine Secondary amenorrhea 01/11/2022 8:53 AM [facility] Work Phone: End: 03-28-2025 Thyrotropin [Units/volume] in Serum or Plasma THYROID STIMULATING HORMONE Lab Routine 20 weeks gestation of Once per month for 8 Occurrences starting 03/28/2024 until 03/28/2025 [facility] Comment on above: Once per month for 8 Occurrences startin g 03/28/2024 until 03/28/2025 End: 03-28-2025 Thyroxine (T4) free [Mass/volume] in Serum or Plasma T4 FREE/FREE THYROXINE Lab Routine 20 weeks gestation of Once per month for 8 Occurrences starting 03/28/2024 until 03/28/2025 [facility] Work Phone: Comment on above: Once per month for 8 Occurrences startin g 03/28/2024 until 03/28/2025 Triiodothyronine (T3 ) [Mass/volume] in Serum or Plasma T3 BLD Lab Routine Secondary amenorrhea 01/11/2022 8:53 AM [facility] Work Phone: End: 12-24-2023 Urinalysis complete W Reflex Culture panel - Urine [facility] Service Area Work Phone: Comment on above: Once (Lab) for 1 Occurrences starting until 12/24/[address] [facility] End: 12-22-2024 US Breast - left limited US BREAST LTD LEFT Radiology Routine Inverted nipple 1 Occurrences starting 11/23/2023 until 12/22/2024 [facility] Comment on above: 1 Occurrences starting 11/23/2023 until 12/22/2024 End: 12-22-2024 US Breast - right limited US BREAST LTD RIGHT Radiology Routine Inverted nipple 1 Occurrences starting 11/23/2023 until 12/22/2024 [facility] Comment on above: 1 Occurrences starting 11/23/2023 until 12/22/2024 End: 02-10-2023 Us transvaginal US FEMALE PELVIS TRANSVAG Radiology Routine Secondary amenorrhea 1 Occurrences starting 01/10/2022 until 02/10/2023 [facility] Work Phone: Comment on above: 1 Occurrences starting 01/10/2022 until 02/10/2023 [facility] Immunizations Immunization Date Immunization Notes Care Provider Timothy [facility] 05-21-2024 tetanus toxoid, redu madina diphtheria toxoid, and acellular pertussis vaccine, adsorbed Whi [facility] 12-07-2023 influenza, seasonal, injectable Elkin Martinez APRN.CNP Work Phone: [facility] 09-08-2020 COVID-19 vaccine, ag e 12+ yr (PFIZER-BION[employer] - PURPLE TOP) No Pcp [facility] 02-20-2020 Human Papillomavirus 9-valent vaccine No Pcp [facility] 11-25-2019 influenza, injectabl e, quadrivalent, contains preservative No Pcp [facility] 11-25-2019 influenza virus vacc ine, unspecified formulation Jose Haynes MD Work Phone: [facility] 09-01-2019 Human Papillomavirus 9-valent vaccine No Pcp [facility] 07-16-2019 Human Papillomavirus 9-valent vaccine No [facility] 05-18-2017 tetanus toxoid, redu madina diphtheria toxoid, and acellular pertussis vaccine, adsorbed No [facility] Work Phone: 03-14-1999 hepatitis B vaccine, pediatric or pediatric/adolescent dosage No [facility] Work Phone: 03-14-1999 poliovirus vaccine, inactivated No [facility] Work Phone: 07-30-1998 hepatitis B vaccine, pediatric or pediatric/adolescent dosage No [facility] Work Phone: 07-30-1998 measles, mumps and rubella virus vaccine No [facility] Work Phone: 06-21-1998 diphtheria, tetanus toxoids and acellular pertussis vaccine, unspecified formulation No [facility] Work Phone: 06-21-1998 diphtheria, tetanus toxoids and pertussis vaccine No [facility] 06-21-1998 hepatitis B vaccine, pediatric or pediatric/adolescent dosage No [facility] Work Phone: 06-21-1998 measles, mumps and rubella virus vaccine No [facility] Work Phone: 06-21-1998 poliovirus vaccine, inactivated No [facility] 06-21-1998 trivalent poliovirus vaccine, live, oral No [facility] Work Phone: 06-28-1994 diphtheria, tetanus toxoids and acellular pertussis vaccine, unspecified formulation No [facility] Work Phone: 06-28-1994 diphtheria, tetanus toxoids and pertussis vaccine No [facility] 06-28-1994 haemophilus influenz ae type b vaccine, conjugate unspecified formulation No [facility] 06-28-1994 haemophilus influenz ae type b vaccine, PRP-T conjugate No [facility] Work Phone: 1993 diphtheria, tetanus toxoids and acellular pertussis vaccine, unspecified formulation No [facility] Work Phone: 1993 diphtheria, tetanus toxoids and pertussis vaccine No [facility] 1993 haemophilus influenz ae type b vaccine, conjugate unspecified formulation No [facility] 1993 haemophilus influenz ae type b vaccine, PRP-T conjugate No [facility] Work Phone: 1993 poliovirus vaccine, inactivated No [facility] 1993 trivalent poliovirus vaccine, live, oral No [facility] Work Phone: 1993 diphtheria, tetanus toxoids and acellular pertussis vaccine, unspecified formulation No [facility] Work Phone: 1993 diphtheria, tetanus toxoids and pertussis vaccine No [facility] 1993 haemophilus influenz ae type b vaccine, conjugate unspecified formulation No [facility] 1993 haemophilus influenz ae type b vaccine, PRP-T conjugate No [facility] Work Phone: 1993 poliovirus vaccine, inactivated No [facility] 1993 trivalent poliovirus vaccine, live, oral No [facility] Work Phone: Payers Date Payer Category Payer Self-pay [id number] 2018 Medicaid [employer] [id number] 2018-Present [phone] [address] [place] [address] Medicaid [id number] 2018 Medicaid [id number] 2017 Medicaid (Managed Care) [facility] [id number] 2017 Private Health Insurance MEDPAY [id number] 2017 Unknown MEDPAY MEDPAY xx [id number] 2017-Present na [facility] [place] [address] Indemnity [id number] 2017 Unknown MEDPAY MEDPAY xx [id number] 2017-Present na [address] [place] [address] Indemnity [id number] 2017 Unknown [id number] 2016 Medicaid [id number] 1993 Unknown [id number] Unknown [id number] Unknown [id number] Unknown [id number] Social History Date Type Detail Facility Start: 03-28-2018 End: 02-19-2024 Tobacco smoking status UTIS Never smoked tobacco [facility] Start: 08-02-2021 End: 07-23-2024 Alcohol intake Ex-drinker (finding) [facility] Start: 08-15-2019 End: 04-01-2021 History SDOH Alcohol Frequency 1 [facility] Start: 04-01-2021 History SDOH Alcohol Std Drinks 98 [facility] Start: 02-01-2015 History SDOH Alcohol Comment social [facility] Start: 04-01-2021 History SDOH Social Connections Phone 5 [facility] Start: 04-01-2021 History SDOH Social Connections Membership 2 [facility] Start: 04-01-2021 History SDOH Social Connections Living 8 [facility] Start: 04-01-2021 History SDOH Physical Activity DPW 3 [facility] Start: 08-15-2019 Education 12 [facility] Start: 1995 Sex Assigned At Not on file [facility] Start: 01-07-2021 End: 12-24-2023 Exposure to SARS-CoV-2 (event) Not sure [facility] Work Phone: Start: 03-28-2018 End: 09-19-2021 Tobacco use and exposure Smokeless tobacco non-user [facility] Start: 05-09-2018 Alcohol intake Current non-drinker of alcohol (finding) [facility] Start: 04-01-2021 End: 04-19-2023 History of Social function [facility] Start: 04-01-2021 End: 04-19-2023 Social connection and isolation panel [facility] Do you belong to any clubs or organizations such as baptism groups, unions, fraternal or athletic groups, or school groups? No [facility] Attends Club or Organization Meetings Not on file [facility] Are you now , , , , never or living with a partner? Living with partner [facility] How often to you hav e a drink containing alcohol? Never [facility] Do you feel stress - tense, restless, nervous, or anxious, or unable to sleep at night because your mind is troubled all the time - these days [OSQ] To some extent [facility] (I/We) worried whechriss er (my/our) food would run out before (I/we) got money to buy more. Never true [facility] Start: 06-05-2023 Tobacco smoking status NHIS Unknown if ever smoked [facility] Start: 05-29-2020 None [facility] Start: 05-29-2020 With Family [facility] Start: 1995 Sex Assigned At Female [facility] Do you feel stress - tense, restless, nervous, or anxious, or unable to sleep at night because your mind is troubled all the time - these days [OSQ] Rather much [facility] Start: 12-04-2023 Education 13 [facility] Start: 10-30-2023 [facility] Goals Date Patient Goal Desired Activity /State Personal health goal Functional Status Date Assessment Result Facility 05-18-2024 Are you deaf, or do you have serious difficulty hearing No 05/18/2024 4:03 PM EDSusana Dickinson RN No [facility] 05-18-2024 Are you blind, or do you have serious difficulty seeing, even when wearing glasses No 05/18/2024 4:03 PM Susana Love RN No [facility] 05-18-2024 Do you have serious difficulty walking or climbing stairs No 05/18/2024 4:03 PM Susana Love RN No [facility] 05-18-2024 Do you have difficul ty dressing or bathing No 05/18/2024 4:03 PM EDSusana Dickinson RN [facility] 05-18-2024 Because of a physica l, mental, or emotional condition, do you have difficulty doing errands alone such as visiting a physician's office or shopping No 05/18/2024 4:03 PM Susana Love RN No [facility] 12-15-2013 Are you deaf, or do you have serious difficulty hearing No 12/15/2013 4:15 PM Belem Haynes Ma No [facility] 12-15-2013 Are you blind, or do you have serious difficulty seeing, even when wearing glasses No 12/15/2013 4:15 PM Belem Haynes Ma No [facility] 12-15-2013 Do you have serious difficulty walking or climbing stairs No 12/15/2013 4:15 PM Belem Haynes Ma No [facility] 12-15-2013 Do you have difficul ty dressing or bathing No 12/15/2013 4:15 PM NGUYỄN Belem Frost Ma No [facility] 12-15-2013 Because of a physica l, mental, or emotional condition, do you have difficulty doing errands alone such as visiting a physician's office or shopping No 12/15/2013 4:15 PM Belem Haynes Ma No [facility] Mental Status Date Assessment Result Facility 05-18-2024 Because of a physica l, mental, or emotional condition, do you have serious difficulty concentrating, remembering, or making decisions No 05/18/2024 4:03 PM EDT Susana Andrew RN No [facility] 12-15-2013 Because of a physica l, mental, or emotional condition, do you have serious difficulty concentrating, remembering, or making decisions No 12/15/2013 4:15 PM NGUYỄN GalvinBelem purdy Ma No [facility] Clinical Notes 11-03-2019 to 07-27-2024 Telephone Encounter - Juana Perdomo RN - 07/27/2024 3:41 PM EDTTelephone Encounter - Juana Perdomo RN - 07/27/2024 3:41 PM EDT Note Date & Type Note Facility 07-27-2024 Telephone encounter Note Form atting of this note might be different from the original. Reason for Call: 38 weeks , feet swelling, toes feels like needles, still cramping since Sunday Unsure if yg issa or contractions Denies vaginal bleeding, confirms vaginal discharge Denies vision changes / headache Reports BP as 131/86 1500 Planned to Deliver at [facility] Outcome: Patient warm conferenced to main campus glue mounter operator to assist patient in connecting to OB economic consultant for Mariana Hilario. [facility] 07-27-2024 Miscellaneous Notes Formattin g of this note might be different from the original. Reason for Call: 38 weeks , feet swelling, toes feels like needles, still cramping since Sunday Unsure if yg issa or contractions Denies vaginal bleeding, confirms vaginal discharge Denies vision changes / headache Reports BP as 131/86 1500 Planned to Deliver at [facility] Outcome: Patient warm conferenced to main campus glue mounter operator to assist patient in connecting to OB economic consultant for Mariana Hilario. documented in this encounter [facility] 07-25-2024 Evaluation note Diagnosis Onset Date Resolution 37 weeks gestation of acute July 25, 2024 2:20pm Threatened labor at term acute July 25, 2024 2:20pm [facility] Work Phone: 1(106) 427-727006-18-2025 Progress note* Quick Notes - Mariana Hilario APRN.CNM - 07/23/2024 9:48 AM EDT SHANE-S: Richard Smith is a 29 year old female who presents at 37w2d with MARYJANE:08/11/2024, by Ultrasound for a routine visit. Denies headache, visual changes, chest pain, shortness of breath, vaginal bleeding, leakage of fluid, or dysuria. Feeling well, no complaints. O: See flow sheet Gen: No apparent distress Abd: Gravid, nontender ASSESSMENT/PLAN: 1. Supervision of high risk in third trimester -Continue PNV 2. History of pre-eclampsia -Continue ASA 3. Obesity affecting in third trimester, unspecified obesity type -Continue weekly testing -Growth US 07/16 4. 37 weeks gestation of 5. Single umbilical artery affecting management of mother, antepartum, single gestation -Continue weekly NST 6. Rubella non-immune status, antepartum 7. History of anxiety 8. Elevated TSH -Continue Synthroid 100mcg PO once daily -Repeat thyroid studies today 9. Breech presentation -C/S on 08/05/24 with at 12pm PTL precautions reviewed and when to call RTO in one week Mariana Hilario APRN.CNM [facility]06-18-2025 Miscellaneous Notes* Quick Notes - Mariana Hilario APRN.CNM - 07/23/2024 9:48 AM EDT SHANE-S: Richard Smith is a 29 year old female who presents at 37w2d with MARYJANE:08/11/2024, by Ultrasound for a routine visit. Denies headache, visual changes, chest pain, shortness of breath, vaginal bleeding, leakage of fluid, or dysuria. Feeling well, no complaints. O: See flow sheet Gen: No apparent distress Abd: Gravid, nontender ASSESSMENT/PLAN: 1. Supervision of high risk in third trimester -Continue PNV 2. History of pre-eclampsia -Continue ASA 3. Obesity affecting in third trimester, unspecified obesity type -Continue weekly testing -Growth US 07/16 4. 37 weeks gestation of 5. Single umbilical artery affecting management of mother, antepartum, single gestation -Continue weekly NST 6. Rubella non-immune status, antepartum 7. History of anxiety 8. Elevated TSH -Continue Synthroid 100mcg PO once daily -Repeat thyroid studies today 9. Breech presentation -C/S on 08/05/24 with at 12pm PTL precautions reviewed and when to call RTO in one week Mariana Hilario APRN.CNM documented in this encounterUniversity Hospitals [facility] Center06-18-2025 Instructions* Patient Instructions* Alan Haynes MA - 07/23/2024 9:12 AM EDT SEQUENTIAL SCREENINGS The [facility] offers sequential screenings for women who are interested in screenings for chromosomal abnormalities and certain defects during a . The sequential screen combinesultrasound and blood tests to determine the risk of chromosomal abnormalities, including Down's Syndrome (Trisomy 21) and Trisomy 18, as well as open neural tube defects including spina bifida. Ultrasound examination is performed between 11 weeks and 13 weeks gestational age. Blood tests are drawn after the ultrasound and again later in the between 15 and 21 weeks gestational age. Please let your physician know if you are interested in this testing. It will require an appointment withour behavioral health technician. This is not an ultrasound performed by a physician in our office during a routine visit. SIGNS AND SYMPTOMS OF LABOR 1. Contractions every 10 minutes or more often 2. Clear, pink, or brownish fluid (water) leaking from vagina 3. Feeling that baby is pushing down, pressure 4. Low, dull backache 5. Cramps that feel like a period 6. Cramps with or without diarrhea If you notice any of the above symptoms, contact our office at [phone] and ask to speak with anurse. After hours, you can call doctors registry at [phone] OR call [facility] at [phone] ask to have the doctor economic consultant paged. If you consider this an emergency, dial 9-1-8 or go to your nearest emergency department. NEED HELP? Are you dealing with a violent or abusive relationship? Are you a victim of rape or sexual assult? Call [facility] ([place]) 24 hour Crisis Hotline: 258.145.7513 or 838-877-3884. MANUAL Your Guide to a Healthy manual is now on-line. Visit [email or web address] to download your free copy documented in this encounterUniversity Hospitals Cleveland Medical Center06-14-2025 Telephone encounter Note * Telephone Encounter - Nancy Alston LPN - 07/19/2024 9:20 PM EDT Patient calling regarding feet swelling. Conferenced to [place] [facility] [ ] to speak with provider economic consultant for [address]. Nancy Alston LPN [facility]06-14-2025 Miscellaneous Notes* Telephone Encounter - Nancy Alston LPN - 07/19/2024 9:20 PM EDT Patient calling regarding feet swelling. Conferenced to [place] [facility] [ ] to speak with provider economic consultant for [address]ana [address]. Nancy Alston LPN documented in this encounterUniversity Hospitals Cleveland [facility] Center06-11-2025 Telephone encounter Note * Telephone Encounter - Jenise Walker RN - 07/16/2024 4:58 PM EDT Ok to move to 7/1 per JG. Will call surgery in the AM. Jenise Walker RN [facility]06-11-2025 Miscellaneous Notes* Telephone Encounter - Jenise Walker RN - 07/16/2024 4:58 PM EDT Ok to move to 7/1 per JG. Will call surgery in the AM. Jenise Walker RN * Telephone Encounter - Jenise Walker RN - 07/16/2024 3:55 PM EDT KJ is economic consultant and the noon slot is open. Jenise Walker RN documented in this encounterUniversity Hospitals Cleveland Medical Center06-11-2025 Telephone encounter Note * Telephone Encounter - Jenise Walker RN - 07/16/2024 3:55 PM EDT KJ is economic consultant and the noon slot is open. Jenise Walker RN [facility]06-11-2025 Note Indication Evaluation of growth, Evaluation of well-being. History of preeclampsia, single umbilical artery, Maternal obesity, BMI >30 Impression - Single, live, intrauterine . - presentation is breech. - The biometry remains ahead of the assigned gestational dating. - The EFW is 3723 g, at the 99%. AC is at the >99%. - Amniotic fluid volume is normal amount with an MVP of 5.7 cm and EDWARD of 17.3 cm. - The placenta is posterior, fundal. - No malformations visualized on a limited survey as detailed below. Recommendations Additional follow-up as clinically indicated. Maternal Assessment Height 163 cm Height (ft) 5 ft Height (in) 4 in Physical Exam Initial weight (lb) 196 lb Initial BMI 33.64 kg/m Maternal assessment other: 3 Para 1 REMOTE READ Method Transabdominal ultrasound examination Estrada . Number of fetuses: 1 Dating Cycle: irregular cycle GA by prior assessment 36 w + 2 d MARYJANE by prior assessment: 08/11/2024 Ultrasound examination on: 07/16/2024 GA by U/S based upon: AC, BPD, Femur, HC GA by U/S 38 w + 4 d MARYJANE by U/S: 07/26/2024 Assigned: based on stated MARYJANE, selected on 05/21/2024 Assigned GA 36 w + 2 d Assigned MARYJANE: 08/11/2024 General Evaluation Cardiac activity present. FHR 143 bpm. movements: present. Presentation: breech Placenta: Placental site: posterior, fundal Umbilical cord: Cord vessels: 2 vessel cord Amniotic fluid: Amount of AF: normal amount. MVP 5.7 cm. EDWARD 17.3 cm. Q1 4.0 cm, Q2 4.3 cm, Q3 5.7 cm, Q4 3.4 cm Growth Overview Exam date GA BPD (mm) HC (mm) AC (mm) FL (mm) HL (mm) EFW (g) 02/28/2024 16w 3d 34.9 64% 129.8 46% 121.7 90% 22.1 63% 182 83% 03/28/2024 20w 4d 48.6 55% 183.8 55% 163.1 70% 33.5 61% 34.6 88% 387 64% 05/21/2024 28w 2d 71.1 46% 269.6 63% 260.7 91% 54.5 77% 1426 84% 06/18/2024 32w 2d 85 91% 304.4 63% 315.3 >99% 64 84% 2433 94% 07/16/2024 36w 2d 94.3 97% 341.3 84% 368.4 >99% 70.2 72% 3723 99% Biometry Standard BPD 94.3 mm 38w 3d 97% Hadlock OFD 119.5 mm -/- 81% Nicolaides HC 341.3 mm 39w 4d 84% Agustina AC 368.4 mm 40w 5d >99% Hadlock Femur 70.2 mm 35w 4d 72% Agustina EFW 3,723 g -/- 99% Hadlock EFW (lb) 8 lb EFW (oz) 3 oz EFW by: Hadlock (HC-AC-FL) Extended Validation Architect 5.8 mm Extremities / Bony Struc FL / HC 0.21 Other Structures FHR 143 bpm Anatomy Lateral ventricles: normal Cavum septi pellucidi: normal Cerebellum: normal Cisterna magna: normal 4-chamber view: normal RVOT view: normal LVOT view: normal 3-vessel view: normal Heart / Thorax Situs: situs solitus (normal) Diaphragm: normal Stomach: normal Kidneys: normal Bladder: normal sex: male Wants to know sex: yes Performed By: Elizabeth Gray RDMS, RVT Read By: Cadence Bloom M.D.MATERNAL [id number] Progress note* Quick Notes - Jenise Nieves MD - 07/16/2024 11:10 AM EDT S: Richard Smith is a 29 year old female who presents at 08/11/2024, by Ultrasound for a routine visit. Denies headache, visual changes, chest pain, shortness of breath, vaginal bleeding, leakage of fluid, or dysuria. Feeling well, no complaints. Good movement, No contractions O: See flow sheet Gen: No apparent distress Abd: Gravid, nontender EFW 98% EDAWRD 17 Breech GBS collected Reviewed breech presentation Pt ops for primary To be scheduled for 39 weeks ASSESSMENT/PLAN: 1. 36 weeks gestation of (HCC) - ICD9: V22.2, ICD10: Z3A.36 (primary diagnosis) - URINE OB DIP B/O - ROUTINE, GROUP B STREPTOCOCCUS BY PCR 2. Supervision of high risk in third trimester (HCC) - ICD9: V23.9, ICD10: O09.93 - URINE OB DIP B/O - ROUTINE, GROUP B STREPTOCOCCUS BY PCR 3. History of pre-eclampsia - ICD9: V13.29, ICD10: Z87.59 - URINE OB DIP B/O Jenise Nieves MD [facility]06-11-2025 Miscellaneous Notes* Quick Notes - Jenise Nieves MD - 07/16/2024 11:10 AM EDT S: Richard Smith is a 29 year old female who presents at 08/11/2024, by Ultrasound for a routine visit. Denies headache, visual changes, chest pain, shortness of breath, vaginal bleeding, leakage of fluid, or dysuria. Feeling well, no complaints. Good movement, No contractions O: See flow sheet Gen: No apparent distress Abd: Gravid, nontender EFW 98% EDWARD 17 Breech GBS collected Reviewed breech presentation Pt ops for primary To be scheduled for 39 weeks ASSESSMENT/PLAN: 1. 36 weeks gestation of (HCC) - ICD9: V22.2, ICD10: Z3A.36 (primary diagnosis) - URINE OB DIP B/O - ROUTINE, GROUP B STREPTOCOCCUS BY PCR 2. Supervision of high risk in third trimester (HCC) - ICD9: V23.9, ICD10: O09.93 - URINE OB DIP B/O - ROUTINE, GROUP B STREPTOCOCCUS BY PCR 3. History of pre-eclampsia - ICD9: V13.29, ICD10: Z87.59 - URINE OB DIP B/O Jenise Nieves MD documented in this encounterUniversity Hospitals [facility] Center06-11-2025 Instructions* Patient Instructions* Gypsy Mart LPN - 07/16/2024 10:04 AM EDT SEQUENTIAL SCREENINGS The [facility] offers sequential screenings for women who are interested in screenings for chromosomal abnormalities and certain defects during a . The sequential screen combinesultrasound and blood tests to determine the risk of chromosomal abnormalities, including Down's Syndrome (Trisomy 21) and Trisomy 18, as well as open neural tube defects including spina bifida. Ultrasound examination is performed between 11 weeks and 13 weeks gestational age. Blood tests are drawn after the ultrasound and again later in the between 15 and 21 weeks gestational age. Please let your physician know if you are interested in this testing. It will require an appointment withour behavioral health technician. This is not an ultrasound performed by a physician in our office during a routine visit. SIGNS AND SYMPTOMS OF LABOR 1. Contractions every 10 minutes or more often 2. Clear, pink, or brownish fluid (water) leaking from vagina 3. Feeling that baby is pushing down, pressure 4. Low, dull backache 5. Cramps that feel like a period 6. Cramps with or without diarrhea If you notice any of the above symptoms, contact our office at [phone] and ask to speak with anurse. After hours, you can call doctors registry at [phone] OR call [facility] at [phone] ask to have the doctor economic consultant paged. If you consider this an emergency, dial 91-6 or go to your nearest emergency department. NEED HELP? Are you dealing with a violent or abusive relationship? Are you a victim of rape or sexual assult? Call [facility] ([place]) 24 hour Crisis Hotline: 789.502.1532 or 734-445-6422. MANUAL Your Guide to a Healthy manual is now on-line. Visit [email or web address] to download your free copy documented in this encounterUniversity Hospitals Cleveland Medical Center06-04-2025 Telephone encounter Note * Telephone Encounter - Elsa Chaudhary APRN.CNM - 07/09/2024 4:07 PM EDT Unfortunately, there is not a medical indication or reason for her to be written off of work. That being said, she can discuss an early JUAN DIEGO with her HR department. She can take FMLA at anytime but will only get a total of 12 weeks / year. She will need to discuss with employer. Elsa Chaudhary APRN.CNM [facility] Work Phone: 1(613) 419-308006-04-2025 Miscellaneous Notes* Telephone Encounter - Elsa Chaudhary APRN.CNM - 07/09/2024 4:07 PM EDT Unfortunately, there is not a medical indication or reason for her to be written off of work. That being said, she can discuss an early JUAN DIEGO with her HR department. She can take FMLA at anytime but will only get a total of 12 weeks / year. She will need to discuss with employer. Elsa Chaudhary APRN.CNM * Telephone Encounter - Alan Haynes MA - 07/09/2024 3:37 PM EDT Received [place] paperwork. Alan Haynes MA documented in this encounterUniversity Hospitals Cleveland Medical Center06-04-2025 Telephone encounter Note * Telephone Encounter - Alan Haynes MA - 07/09/2024 3:37 PM EDT Received FMLA paperwork. Alan Haynes MA [facility]05-28-2025 Progress note* Quick Notes - Elsa Chaudhary APRN.CNM - 07/02/2024 9:51 AM EDT S: Richard Smith is a 29 year old female who presents at 34 weeks gestation for a routine visit. Positive movements. Not feeling well since last weekend. Increased nausea and a couple episodes of emesis. Sipping water but not eating much. Afebrile. Denies headache, visual changes, chest pain, shortness of breath, vaginal bleeding, leakage of fluid, or dysuria. O: See flow sheet Gen: No apparent distress Abd: Gravid, nontender ASSESSMENT/PLAN: 1. 34 weeks gestation of 2. Supervision of high risk in third trimester 3. History of pre-eclampsia 4. Obesity in 5. Hypothyroid - Continue Synthroid 100 mcg PO Daily - Has follow up appointment with endocrinology in July - Repeat growth US in 2 weeks - Increase hydration and add in electrolytes - PTL precautions reviewed and when to call office Elsa Chaudhary APRN.CNM [facility]05-28-2025 Miscellaneous Notes* Quick Notes - Elsa Chaudhary APRN.CNM - 07/02/2024 9:51 AM EDT S: Richard Smith is a 29 year old female who presents at 34 weeks gestation for a routine visit. Positive movements. Not feeling well since last weekend. Increased nausea and a couple episodes of emesis. Sipping water but not eating much. Afebrile. Denies headache, visual changes, chest pain, shortness of breath, vaginal bleeding, leakage of fluid, or dysuria. O: See flow sheet Gen: No apparent distress Abd: Gravid, nontender ASSESSMENT/PLAN: 1. 34 weeks gestation of 2. Supervision of high risk in third trimester 3. History of pre-eclampsia 4. Obesity in 5. Hypothyroid - Continue Synthroid 100 mcg PO Daily - Has follow up appointment with endocrinology in July - Repeat growth US in 2 weeks - Increase hydration and add in electrolytes - PTL precautions reviewed and when to call office Elsa Chaudhary APRN.CNM documented in this encounterUniversity Hospitals Cleveland Medical Center05-28-2025 Instructions* Patient Instructions* Gypsy Mart LPN - 07/02/2024 9:39 AM EDT SEQUENTIAL SCREENINGS The [facility] offers sequential screenings for women who are interested in screenings for chromosomal abnormalities and certain defects during a . The sequential screen combinesultrasound and blood tests to determine the risk of chromosomal abnormalities, including Down's Syndrome (Trisomy 21) and Trisomy 18, as well as open neural tube defects including spina bifida. Ultrasound examination is performed between 11 weeks and 13 weeks gestational age. Blood tests are drawn after the ultrasound and again later in the between 15 and 21 weeks gestational age. Please let your physician know if you are interested in this testing. It will require an appointment withour behavioral health technician. This is not an ultrasound performed by a physician in our office during a routine visit. SIGNS AND SYMPTOMS OF LABOR 1. Contractions every 10 minutes or more often 2. Clear, pink, or brownish fluid (water) leaking from vagina 3. Feeling that baby is pushing down, pressure 4. Low, dull backache 5. Cramps that feel like a period 6. Cramps with or without diarrhea If you notice any of the above symptoms, contact our office at [phone] and ask to speak with anurse. After hours, you can call doctors registry at [phone] OR call [facility] at [phone] ask to have the doctor economic consultant paged. If you consider this an emergency, dial 91-5 or go to your nearest emergency department. NEED HELP? Are you dealing with a violent or abusive relationship? Are you a victim of rape or sexual assult? Call [facility] ([place]) 24 hour Crisis Hotline: 989.378.9948 or 223-111-2390. MANUAL Your Guide to a Healthy manual is now on-line. Visit [email or web address] to download your free copy documented in this encounterUniversity Hospitals Cleveland Medical Center05-27-2025 Telephone encounter Note * Telephone Encounter - Jenise Nieves MD - 07/01/2024 12:08 PM EDT agree [facility] Work Phone: [phone] Miscellaneous Notes* Telephone Encounter - Jenise Nieves MD - 07/01/2024 12:08 PM EDT agree * Telephone Encounter - Jenise Walker RN - 07/01/2024 10:37 AM EDT 34w1d Patient called with c/o low back pain that started last night along with pelvic pressure. Asking ifshe should go to the ER. She's been having cramping, but at her last visit was told that was normal. Also, c/o nausea. Denies urinary issues. No VB or LOF. Good FM. Offered patient 3:30 today with SHANE. Patient declined since she has to orange picker her son from school at 3:20. States she will just keep her appointment for tomorrow. Jenise Walker RN documented in this encounterUniversity Hospitals Cleveland Medical Center05-27-2025 Telephone encounter Note * Telephone Encounter - Jenise Walker RN - 07/01/2024 10:37 AM EDT 34w1d Patient called with c/o low back pain that started last night along with pelvic pressure. Asking ifshe should go to the ER. She's been having cramping, but at her last visit was told that was normal. Also, c/o nausea. Denies urinary issues. No VB or LOF. Good FM. Offered patient 3:30 today with SHANE. Patient declined since she has to orange picker her son from school at 3:20. States she will just keep her appointment for tomorrow. Jenise Walker RN [facility]05-15-2025 Telephone encounter Note* Telephone Encounter - Elsa Chaudhary APRN.CNM - 06/19/2024 4:52 PM EDT Unfortunately, there is not a medical indication or reason for her to be written off of work. That being said, she can discuss an early JUAN DIEGO with her HR department. Elsa Chaudhary APRN.CNM [facility] Work Phone: [phone]) 262-725505-15-2025 Miscellaneous Notes* Telephone Encounter - Elsa Chaudhary APRN.CNM - 06/19/2024 4:52 PM EDT Unfortunately, there is not a medical indication or reason for her to be written off of work. That being said, she can discuss an early JUAN DIEGO with her HR department. Elsa Chaudhary APRN.CNM * Telephone Encounter - Zohra Cortés RN - 06/12/2024 4:53 PM EDT Call placed to Pt to get additional information re:Zaelab message. 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 Has been on feet quite a bit-did state she's had some headaches and she mentioned this to provider at last visit, but goes away with tylenol. Denies blurred vision/chest pain/shortness of breath. Pt took off work Sunday06/10/24 and is asking to have note from then to 6 to 12 weeks after baby off. Advised Pt to have employer fax FMLA paperwork to office and advised Pt to discuss this with at next visit. Pt voiced understanding. Zohra Cortés RN documented in this encounterUniversity Hospitals Cleveland Medical Center05-14-2025 Note Indication Evaluation of growth History of preeclampsia, single umbilical artery, Maternal obesity, BMI >30 Impression - Single, live, intrauterine . - presentation is cephalic. - The biometry is accelerated for the assigned gestational dating. - The EFW is 2433 g, at the 94%. AC is at the >99%. - The amniotic fluid volume is normal amount with an MVP of 7.6 cm and an EDWARD of 19.6 cm. - The placenta is posterior, fundal. - No malformations visualized on a limited survey as detailed below. Recommendations Growth in four weeks Maternal Assessment Height 163 cm Height (ft) 5 ft Height (in) 4 in Physical Exam Initial weight (lb) 196 lb Initial BMI 33.64 kg/m Method Transabdominal ultrasound examination Estrada . Number of fetuses: 1 Dating Cycle: irregular cycle GA by prior assessment 32 w + 2 d MARYJANE by prior assessment: 08/11/2024 Ultrasound examination on: 06/18/2024 GA by U/S based upon: AC, BPD, Femur, HC GA by U/S 33 w + 6 d MARYJANE by U/S: 07/31/2024 Assigned: based on stated MARYJANE, selected on 05/21/2024 Assigned GA 32 w + 2 d Assigned MARYJANE: 08/11/2024 General Evaluation Cardiac activity present. FHR 153 bpm. movements: present. Presentation: cephalic Placenta: Placental site: posterior, fundal Umbilical cord: Cord vessels: 2 vessel cord. Insertion site: normal insertion Amniotic fluid: Amount of AF: normal amount. MVP 7.6 cm. EDWARD 19.6 cm. Q1 7.6 cm, Q2 3.8 cm, Q3 4.0 cm, Q4 4.2 cm Growth Overview Exam date GA BPD (mm) HC (mm) AC (mm) FL (mm) HL (mm) EFW (g) 02/28/2024 16w 3d 34.9 64% 129.8 46% 121.7 90% 22.1 63% 182 83% 03/28/2024 20w 4d 48.6 55% 183.8 55% 163.1 70% 33.5 61% 34.6 88% 387 64% 05/21/2024 28w 2d 71.1 46% 269.6 63% 260.7 91% 54.5 77% 1426 84% 06/18/2024 32w 2d 85 91% 304.4 63% 315.3 >99% 64 84% 2433 94% Biometry Standard BPD 85.0 mm 34w 2d 91% Hadlock OFD 106.0 mm 31w 4d 44% Nicolaides HC 304.4 mm 32w 6d 63% Agustina AC 315.3 mm 35w 3d >99% Hadlock Femur 64.0 mm 32w 6d 84% Agustina EFW 2,433 g 34w 2d 94% Hadlock EFW (lb) 5 lb EFW (oz) 6 oz EFW by: Hadlock (HC-AC-FL) Extended Validation Architect 4.9 mm Extremities / Bony Struc FL / HC 0.21 Other Structures FHR 153 bpm Anatomy Lateral ventricles: normal Cavum septi pellucidi: normal Cerebellum: normal Cisterna magna: normal 4-chamber view: normal RVOT view: suboptimally visualized LVOT view: normal 3-vessel view: normal Heart / Thorax Situs: situs solitus (normal) Diaphragm: normal Stomach: normal Kidneys: normal Bladder: normal sex: male Wants to know sex: yes Performed By: Jazlyn Beckwith RDMS Read By: Florina Lo M.D.MATERNAL [id number] Progress note* Quick Notes - Janay Hugo MD - 06/18/2024 1:58 PM EDT DM-Pt doing well. Denies vaginal Bleeding, Leaking fluid, or regular Contractions. Pt reports good movement Physical Exam: Gen: female in no apparent distress Abd: soft, Gravid. Non tender to palpation. See flow sheet @ 32.2 weeks Assessment & Plan Supervision of high risk in third trimester (HCC) Growth us pending today History of pre-eclampsia Baseline labs are completed 28 weeks Elevated TSH Continue synthroid Single umbilical artery affecting management of mother, antepartum, single gestation ([facility]) Growth us q4 weeks 32 weeks gestation of ([facility]) Kick counts and labor reviewed Janay Ballesteros MD [facility]05-14-2025 Miscellaneous Notes* Quick Notes - Janay Hugo MD - 06/18/2024 1:58 PM EDT DM-Pt doing well. Denies vaginal Bleeding, Leaking fluid, or regular Contractions. Pt reports good movement Physical Exam: Gen: female in no apparent distress Abd: soft, Gravid. Non tender to palpation. See flow sheet @ 32.2 weeks Assessment & Plan Supervision of high risk in third trimester (HCC) Growth us pending today History of pre-eclampsia Baseline labs are completed 28 weeks Elevated TSH Continue synthroid Single umbilical artery affecting management of mother, antepartum, single gestation (HCC) Growth us q4 weeks 32 weeks gestation of (HCC) Kick counts and labor reviewed Janay Ballesteros MD documented in this encounterUniversity [facility]als [facility]05-08-2025 Telephone encounter Note * Telephone Encounter - Zohra Cortés RN - 06/12/2024 4:53 PM EDT Call placed to Pt to get additional information re:[employer] message. 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 Has been on feet quite a bit-did state she's had some headaches and she mentioned this to provider at last visit, but goes away with tylenol. Denies blurred vision/chest pain/shortness of breath. Pt took off work Sunday06/10/24 and is asking to have note from then to 6 to 12 weeks after baby off. Advised Pt to have employer fax FMLA paperwork to office and advised Pt to discuss this with Dr at next visit. Pt voiced understanding. Zohra Cortés RN [facility]05-01-2025 Telephone encounter Note* Telephone Encounter - Jenise Cazares RN - 06/05/2024 8:35 AM EDT 3rd risk assessment form submitted 06/05/2024. Jenise Cazares RN [facility]05-01-2025 Miscellaneous Notes* Telephone Encounter - Jenise Cazares RN - 06/05/2024 8:35 AM EDT 3rd risk assessment form submitted 06/05/2024. Jenise Cazares RN documented in this encounterUniversity Hospitals [facility]04-30-2025 Progress note* Quick Notes - Mariana Hilario APRN.CNM - 06/04/2024 11:47 AM EDT SHANE-S: Richard Smith is a 29 year old female who presents at 30w2d with MARYJANE:08/11/2024, by Ultrasound for a routine visit. Denies headache, visual changes, chest pain, shortness of breath, vaginal bleeding, leakage of fluid, or dysuria. Feeling well, no complaints. O: See flow sheet Gen: No apparent distress Abd: Gravid, nontender Growth US at 28 wk The EFW is 1426 g, at the 84%. AC is at the 91%. MVP of 7.2 cm and EDWARD of 18.8 cm. ASSESSMENT/PLAN: 1. Supervision of high risk in second trimester 2. 30 weeks gestation of 3. Obesity affecting in first trimester, unspecified obesity type -Pregravid BMI 32, no testing 4. Elevated TSH -Endocrinology for management, upcoming appt -Standing order for TSH and free T4 -Continue Synthroid 88mcg PO once daily 5. Single Umbilical Artery -Growth US every 4 weeks 6. History of pre-eclampsia -Baseline labs negative -Never started ASA 7. Rubella non-immune status, antepartum -Vaccine PP 8. History of anxiety -No medication, coping well. PTL precautions reviewed RTO in 2 weeks Mariana Hilario APRN.CNM [facility]04-30-2025 Miscellaneous Notes* Quick Notes - Mariana Hilario APRN.CNM - 06/04/2024 11:47 AM EDT SHANE-S: Richard Smith is a 29 year old female who presents at 30w2d with MARYJANE:08/11/2024, by Ultrasound for a routine visit. Denies headache, visual changes, chest pain, shortness of breath, vaginal bleeding, leakage of fluid, or dysuria. Feeling well, no complaints. O: See flow sheet Gen: No apparent distress Abd: Gravid, nontender Growth US at 28 wk The EFW is 1426 g, at the 84%. AC is at the 91%. MVP of 7.2 cm and EDWARD of 18.8 cm. ASSESSMENT/PLAN: 1. Supervision of high risk in second trimester 2. 30 weeks gestation of 3. Obesity affecting in first trimester, unspecified obesity type -Pregravid BMI 32, no testing 4. Elevated TSH -Endocrinology for management, upcoming appt -Standing order for TSH and free T4 -Continue Synthroid 88mcg PO once daily 5. Single Umbilical Artery -Growth US every 4 weeks 6. History of pre-eclampsia -Baseline labs negative -Never started ASA 7. Rubella non-immune status, antepartum -Vaccine PP 8. History of anxiety -No medication, coping well. PTL precautions reviewed RTO in 2 weeks Mariana Hilario APRN.CNM documented in this encounterUniversity Hospitals Cleveland [facility] Center04-30-2025 NoteHNO ID: [id number] Author: MARIANA HILARIO APRN.CNM Service: ? Author Type: Casual Shoe Inspector Type: Progress Notes Filed: 06/04/2024 11:53 Note Text: ASSESSMENT/PLAN: 1. Supervision of high risk in second trimester 2. 20 weeks gestation of 3. Obesity affecting in first trimester, unspecified obesity type -Pregravid BMI 32, no testing 4. Elevated TSH -Referral to endocrinology, has appointment today after visit. -Standing order for TSH and free T4 today -Continue Synthroid, will discuss with endocrinology today. 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 Will await US report for formal result. 6. History of pre-eclampsia -Baseline labs negative -Never started ASA, reviewed not effective at this time and does not need to start 7. Rubella non-immune status, antepartum -Vaccine PP 8. History of anxiety -No medication, coping well.[facility]04-30-[facility] History of Present illness Narrative* Mariana Hilario APRN.CNM - 06/04/2024 10:23 AM EDT ASSESSMENT/PLAN: 1. Supervision of high risk in second trimester 2. 20 weeks gestation of 3. Obesity affecting in first trimester, unspecified obesity type -Pregravid BMI 32, no testing 4. Elevated TSH -Referral to endocrinology, has appointment today after visit. -Standing order for TSH and free T4 today -Continue Synthroid, will discuss with endocrinology today. 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 Will await US report for formal result. 6. History of pre-eclampsia -Baseline labs negative -Never started ASA, reviewed not effective at this time and does not need to start 7. Rubella non-immune status, antepartum -Vaccine PP 8. History of anxiety -No medication, coping well. documented in this encounterUniversity Hospitals [facility] Center04-30-2025 Instructions* Patient Instructions* Alan Haynes MA - 06/04/2024 9:55 AM EDT SEQUENTIAL SCREENINGS The [facility] offers sequential screenings for women who are interested in screenings for chromosomal abnormalities and certain defects during a . The sequential screen combinesultrasound and blood tests to determine the risk of chromosomal abnormalities, including Down's Syndrome (Trisomy 21) and Trisomy 18, as well as open neural tube defects including spina bifida. Ultrasound examination is performed between 11 weeks and 13 weeks gestational age. Blood tests are drawn after the ultrasound and again later in the between 15 and 21 weeks gestational age. Please let your physician know if you are interested in this testing. It will require an appointment withour behavioral health technician. This is not an ultrasound performed by a physician in our office during a routine visit. SIGNS AND SYMPTOMS OF LABOR 1. Contractions every 10 minutes or more often 2. Clear, pink, or brownish fluid (water) leaking from vagina 3. Feeling that baby is pushing down, pressure 4. Low, dull backache 5. Cramps that feel like a period 6. Cramps with or without diarrhea If you notice any of the above symptoms, contact our office at [phone] and ask to speak with anurse. After hours, you can call [facility] at [phone] OR call [facility] at [phone] ask to have the doctor economic consultant paged. If you consider this an emergency, dial 91-0 or go to your nearest emergency department. NEED HELP? Are you dealing with a violent or abusive relationship? Are you a victim of rape or sexual assult? Call [facility] ([place]) 24 hour Crisis Hotline: 276.536.5340 or 696-769-9449. MANUAL Your Guide to a Healthy manual is now on-line. Visit [email or web address] to download your free copy documented in this encounterUniversity Hospitals Cleveland [facility] Center04-21-2025 NoteHNO ID: [id number] Author: ERIC GASPAR APRN.CROSSBOW MAKER Service: ? Author Type: Nurse Practitioner Type: Progress Notes Filed: 05/26/2024 13:11 Note Text: [facility] Subjective HPI HPI Richard Smith is a 29 year old female who presents today for CC of cough, congestion, right ear pain. This started 5 days ago. Has tried otc medication for relief. Symptoms are worsened by nothing. No sick exposures. Patient is 29w . nonsmoker. .Patient presents with: Cough: right ear pain, sore throat x 5 days, chest congestion x this am PAST MEDICAL HISTORY Diagnosis Date Abdominal cramping affecting (HCC) 05/18/2024 Abnormal Pap smear of cervix anxiety Calculus of gallbladder without biliary obstruction 08/10/2019 Cervical intraepithelial neoplasia grade 1 2016 COVID-19 virus infection 01/30/2020 Positive test 01/17/20 (symptoms started 01/15) Overall symptoms gradually improving and almost resolved today. Completed course of decadron for respiratory symptoms. Reassured patient that feels that her course of illness is near complete and happy that her symptoms seem to be resolved. No further action at this time. Dyslipidemia (high LDL; low HDL) 06/05/2022 Elevated glucose 09/01/2019 Patient had elevated glucose on last BMP. BMI elevated, No FM history of diabetes. 08/2019: Hba1c 5.3 Elevated liver enzymes 2019 Noted hepatic steatosis on RUQ US in 2019 JORJE (generalized anxiety disorder) 11/25/2019 Likes current dose of zoloft. Continue. 11/25/2019 JORJE 7:11 PHQ 9: 4 Counseling referral placed. Interested in medications, will plan to start zoloft, titrate from 25 mg to 50 mg in next week. Will message in 4 weeks on symptoms. HISTORICAL prozac in past with minimal relief. Gastroesophageal reflux disease 11/03/2019 Symptoms of burning after eating, didn't seem to improve with Pepcid alone -Plan: begin PPI trial x 4 weeks, recommended she return in 2-4 weeks or sooner if symptoms are not improving Hypertriglyceridemia 06/05/2022 Inverted nipple Migraine variant 01/07/2013 Seems to be more tension headache then migraine. ibuprofen prn has provided relief Historical: Patient tried amitriptyline which helped with headaches but made too fatigued Pure hypercholesterolemia 06/05/2022 Seasonal allergies flonase. Shingles outbreak PAST SURGICAL HISTORY Procedure Laterality Date CHOLECYSTECTOMY HX 08/2019 DANDC, DIAG AND/OR THERAPEUTIC 2019 Missed ab ALLERGIES Imitrex [Sumatriptan] MEDICATIONS levothyroxine (SYNTHROID) 100 mcg tablet Take 1 tablet by mouth daily before breakfast. vit no.124/iron/folic ( VITAMIN ORAL) Take by mouth. cetirizine (ZYRTEC) 10 mg tablet Take 1 tablet by mouth once daily. fluticasone (FLONASE) 50 mcg/actuation nasal spray Use 2 Sprays in each nostril once daily. Rinse mouth after use. FAMILY HISTORY Problem Relation Age of Onset Anxiety disorder Mother No Known Problems Father Anxiety disorder Sister No Known Problems Sister No Known Problems Brother No Known Problems Brother Hypertension Maternal Grandmother Lipids Maternal Grandmother COPD Maternal Grandfather other (smoker) Maternal Grandfather Lung Cancer Paternal Grandmother Cancer Paternal Grandfather bone? Social History Tobacco Use Smoking status: Never Smokeless tobacco: Never Vaping Use Vaping status: Never Used Substance Use Topics Alcohol use: Not Currently Comment: social Drug use: No Review of Systems Constitutional: Negative for chills, fatigue and fever. HENT: Positive for ear pain, rhinorrhea and sore throat. Negative for ear discharge, sinus pressure and sinus pain. Eyes: Negative for discharge and redness. Respiratory: Positive for cough. Negative for shortness of breath and wheezing. Cardiovascular: Negative for chest pain. Skin: Negative for rash. Objective BP 122/72 Pulse 96 Temp 36.9 ?C (98.5 ?F) Resp 16 Wt 104.6 kg (230 lb 9.6 oz) LMP 10/16/2023 (Approximate) SpO2 99% BMI 38.97 kg/m? Physical Exam Constitutional: General: She is not in acute distress. Appearance: She is not toxic-appearing or diaphoretic. HENT: Head: Normocephalic and atraumatic. Right Ear: Hearing, ear canal and external ear normal. Tympanic membrane is erythematous and bulging. Tympanic membrane is not perforated. Left Ear: Hearing, tympanic membrane, ear canal and external ear normal. Nose: Nose normal. Mouth/Throat: Pharynx: Uvula midline. Eyes: General: Lids are normal. No scleral icterus. Right eye: No discharge. Left eye: No discharge. Conjunctiva/sclera: Conjunctivae normal. Pupils: Pupils are equal, round, and reactive to light. Neck: Trachea: Trachea normal. Cardiovascular: Rate and Rhythm: Normal rate and regular rhythm. Heart sounds: Normal heart sounds. Pulmonary: Effort: Pulmonary effort is normal. Breath sounds: Normal breath sounds. Musculoskeletal: (more content not included)...[facility]04-21-2025 History of Present illness Narrative* Eric Gaspar APRN.CROSSBOW MAKER - 05/26/2024 11:36 AM EDT [facility] Subjective HPI HPI Richard Smith is a 29 year old female who presents today for CC of cough, congestion, right ear pain. This started 5 days ago. Has tried otc medication for relief. Symptoms are worsened by nothing. No sick exposures. Patient is 29w . nonsmoker. .Patient presents with: Cough: right ear pain, sore throat x 5 days, chest congestion x this am PAST MEDICAL HISTORY Diagnosis Date Abdominal cramping affecting (HCC) 05/18/2024 Abnormal Pap smear of cervix anxiety Calculus of gallbladder without biliary obstruction 08/10/2019 Cervical intraepithelial neoplasia grade 1 2016 COVID-19 virus infection 01/30/2020 Positive test 01/17/20 (symptoms started 01/15) Overall symptoms gradually improving and almost resolved today. Completed course of decadron for respiratory symptoms. Reassured patient that feels that her course of illness is near complete and happy that her symptoms seem to be resolved. No furtheraction at this time. Dyslipidemia (high LDL; low HDL) 06/05/2022 Elevated glucose 09/01/2019 Patient had elevated glucose on last BMP. BMI elevated, No FM history of diabetes. 08/2019: Hba1c 5.3 Elevated liver enzymes 2019 Noted hepatic steatosis on RUQ US in 2019 JORJE (generalized anxiety disorder) 11/25/2019 Likes current dose of zoloft. Continue. 11/25/2019 JORJE 7:11 PHQ 9: 4 Counseling referral placed. Interested in medications, will plan to start zoloft, titrate from 25 mg to 50 mg in next week. Will message in 4 weeks on symptoms. HISTORICAL prozac in past with minimal relief. Gastroesophageal reflux disease 11/03/2019 Symptoms of burning after eating, didn't seem to improve with Pepcid alone - Plan: begin PPI trial x4 weeks, recommended she return in 2-4 weeks or sooner if symptoms are not improving Hypertriglyceridemia 06/05/2022 Inverted nipple Migraine variant 01/07/2013 Seems to be more tension headache then migraine. ibuprofen prn has provided relief Historical: Patient tried amitriptyline which helped with headaches but made too fatigued Pure hypercholesterolemia 06/05/2022 Seasonal allergies flonase. Shingles outbreak PAST SURGICAL HISTORY Procedure Laterality Date CHOLECYSTECTOMY HX 08/2019 D&C, DIAG AND/OR THERAPEUTIC 2019 Missed ab ALLERGIES Imitrex [Sumatriptan] MEDICATIONS levothyroxine (SYNTHROID) 100 mcg tablet Take 1 tablet by mouth daily before breakfast. vit no.124/iron/folic ( VITAMIN ORAL) Take by mouth. cetirizine (ZYRTEC) 10 mg tablet Take 1 tablet by mouth once daily. fluticasone (FLONASE) 50 mcg/actuation nasal spray Use 2 Sprays in each nostril once daily. Rinse mouth after use. FAMILY HISTORY Problem Relation Age of Onset Anxiety disorder Mother No Known Problems Father Anxiety disorder Sister No Known Problems Sister No Known Problems Brother No Known Problems Brother Hypertension Maternal Grandmother Lipids Maternal Grandmother COPD Maternal Grandfather other (smoker) Maternal Grandfather Lung Cancer Paternal Grandmother Cancer Paternal Grandfather bone? Social History Tobacco Use Smoking status: Never Smokeless tobacco: Never Vaping Use Vaping status: Never Used Substance Use Topics Alcohol use: Not Currently Comment: social Drug use: No Review of Systems Constitutional: Negative for chills, fatigue and fever. HENT: Positive for ear pain, rhinorrhea and sore throat. Negative for ear discharge, sinus pressureand sinus pain. Eyes: Negative for discharge and redness. Respiratory: Positive for cough. Negative for shortness of breath and wheezing. Cardiovascular: Negative for chest pain. Skin: Negative for rash. Objective BP 122/72 Pulse 96 Temp 36.9 C (98.5 F) Resp 16 Wt 104.6 kg (230 lb 9.6 oz) LMP 10/16/2023 (Approximate) SpO2 99% BMI 38.97 kg/m Physical Exam Constitutional: General: She is not in acute distress. Appearance: She is not toxic-appearing or diaphoretic. HENT: Head: Normocephalic and atraumatic. Right Ear: Hearing, ear canal and external ear normal. Tympanic membrane is erythematous and bulging. Tympanic membrane is not perforated. Left Ear: Hearing, tympanic membrane, ear canal and external ear normal. Nose: Nose normal. Mouth/Throat: Pharynx: Uvula midline. Eyes: General: Lids are normal. No scleral icterus. Right eye: No discharge. Left eye: No discharge. Conjunctiva/sclera: Conjunctivae normal. Pupils: Pupils are equal, round, and reactive to light. Neck: Trachea: Trachea normal. Cardiovascular: Rate and Rhythm: Normal rate and regular rhythm. Heart sounds: Normal heart sounds. Pulmonary: Effort: Pulmonary effort is normal. Breath sounds: Normal breath sounds. Musculoskeletal: Cervical back: Normal range of motion and neck supple. Lymphadenopathy: Cervical: No cervical adenopathy. Skin: Findings: No rash. Neurological: Mental Status: She is alert and oriented to person, place, and time. {ASSESSMENT/PLAN: 1. Acute otitis media, right - ICD9: 382.9, ICD10: H66.91 (primary diagnosis) - Will begin treatment with as per antibiotic as written, see orders - Supportive care with plenty of fluids, rest, and analgesia prn. - Follow up in 3-5 days if symptoms persist or worsen. - AMOXICILLIN 875 MG TABLET - FLUTICASONE PROPIONATE 50 MCG/ACTUATION NASAL SPRAY,SUSPENSION 2. URI, acute - ICD9: 465.9, ICD10: J06.9 - Discussed viral etiology and rationale for treatment. - Symptomatic treatment with prn analgesia - Supportive care with fluids and rest - Follow up in 3-5 days if symptoms persist or sooner if worsening of symptoms Eric Gaspar APRN.[employer] MAKER History and Record Review External record(s) reviewed: prior outpatient record. Disposition The patient was discharged. Procedures documented in this encounterUniversity Hospitals [facility] Center04-16-2025 Progress note* Quick Notes - Alfred Childress MD - 05/21/2024 10:22 AM EDT RR- VB No. LOF No. CTXS No. Movement: present. Other c/o: No. Was seen in [facility] for pressure and tightness, no evidence of PTL at that time. Seem t to happen at night when she is tired. Medication list reviewed. SENSITIVE EXAM: Sensitive exam not performed. Physical Exam See Flow Sheet Abd: soft, nontender, gravid Ext: edema: Trace A/P 28w2d Estimated Date of Delivery: 08/11/24 Assessment & Plan History of pre-eclampsia baseline labs were done other than prot/creat ration, get that today Orders: PROTEIN / CREATININE RATIO; Future Single umbilical artery affecting management of mother, antepartum, single gestation (HCC) growth scan reviewed, cont. growth q 4 weeks. Ordered today. schedule NSTs weekly at 36 weeks, orders in Orders: PROTEIN / CREATININE RATIO; Future OBSTETRIC ULTRASOUND WHI; Standing 28 weeks gestation of (HCC) Orders: PROTEIN / CREATININE RATIO; Future OBSTETRIC ULTRASOUND WHI; Standing High-risk in third trimester (HCC) Orders: PROTEIN / CREATININE RATIO; Future OBSTETRIC ULTRASOUND WHI; Standing Need for vaccination reviewed indication for this and desires. Orders: PROTEIN / CREATININE RATIO; Future Encounter for other general counseling or advice on contraception Risks, benefits and alternatives to sterilization have been discussed with the patient. She declines reversible options including LARC. She understands sterilization is permanent, irreversible, risksof failure, regret and ectopic. In addition she understands there are surgical risks as well. Her questions were answered to her satisfaction and consent was signed. D/w her will do if c/s otherwise may need to wait until after PP visit. Declines LARC at delivery, [facility] paper for this signed. not on ASA prophylaxis Synthroid refilled, may need to adjust dose after labs return preferences worksheet given Alrfed Childress M.D. [facility]04-16-2025 Miscellaneous Notes* Quick Notes - Alfred Childress MD - 05/21/2024 10:22 AM EDT RR- VB No. LOF No. CTXS No. Movement: present. Other c/o: No[facility], no evidence of PTL at that time. Seem t to happen at night when she is tired. Medication list reviewed. SENSITIVE EXAM: Sensitive exam not performed. Physical Exam See Flow Sheet Abd: soft, nontender, gravid Ext: edema: Trace A/P 28w2d Estimated Date of Delivery: 08/11/24 Assessment & Plan History of pre-eclampsia baseline labs were done other than prot/creat ration, get that today Orders: PROTEIN / CREATININE RATIO; Future Single umbilical artery affecting management of mother, antepartum, single gestation (HCC) growth scan reviewed, cont. growth q 4 weeks. Ordered today. schedule NSTs weekly at 36 weeks, orders in Orders: PROTEIN / CREATININE RATIO; Future OBSTETRIC ULTRASOUND WHI; Standing 28 weeks gestation of (HCC) Orders: PROTEIN / CREATININE RATIO; Future OBSTETRIC ULTRASOUND WHI; Standing High-risk in third trimester (HCC) Orders: PROTEIN / CREATININE RATIO; Future OBSTETRIC ULTRASOUND WHI; Standing Need for vaccination reviewed indication for this and desires. Orders: PROTEIN / CREATININE RATIO; Future Encounter for other general counseling or advice on contraception Risks, benefits and alternatives to sterilization have been discussed with the patient. She declines reversible options including LARC. She understands sterilization is permanent, irreversible, risksof failure, regret and ectopic. In addition she understands there are surgical risks as well. Her questions were answered to her satisfaction and consent was signed. D/w her will do if c/s otherwise may need to wait until after PP visit. Declines LARC at delivery, [facility] paper for this signed. not on ASA prophylaxis Synthroid refilled, may need to adjust dose after labs return preferences worksheet given Alfred Childress M.D. documented in this encounterUniversity Hospitals Cleveland Medical Center04-16-2025 NoteHNO ID: [id number] Author: HAYDEE SALAS MA Service: ? Author Type: Beaming Machine Operator Type: Progress Notes Filed: 05/21/2024 11:00 Note Text: Patient identified by name and date of . Richard Smith presents today for a vaccination of Tdap. Patient denies an allergy to latex: yes Patient denies a severe (life-threatening) allergy to a previous dose of Tdap, DTP, DTaP, DT or Td vaccine. Yes Patient denies history of epilepsy or neurological problems: Yes Patient is afebrile and denies being moderately or severely ill: Yes Patient denies history of Guillain-[place] Syndrome (a severe paralytic illness): Yes Tdap Adacel injection was given without incident. See immunizations for details of immunizations administered today. VIS sheet provided: Yes Provider Dr Childress was present in office at time of injection.[facility]04-16-2025 History of Present illness Narrative* Haydee Salas MA - 05/21/2024 10:01 AM EDT Patient identified by name and date of . Richard Smith presents today for a vaccination of Tdap. Patient denies an allergy to latex: yes Patient denies a severe (life-threatening) allergy to a previous dose of Tdap, DTP, DTaP, DT or Td vaccine. Yes Patient denies history of epilepsy or neurological problems: Yes Patient is afebrile and denies being moderately or severely ill: Yes Patient denies history of Guillain-[place] Syndrome (a severe paralytic illness): Yes Tdap Adacel injection was given without incident. See immunizations for details of immunizations administered today. VIS sheet provided: Yes Provider Dr Childress was present in office at time of injection. documented in this encounterUniversity Hospitals [facility]04-16-2025 Note Indication Evaluation of growth History of preeclampsia, single umbilical artery, Maternal obesity, BMI >30 Impression - Single, live, intrauterine . - The biometry is consistent with the assigned gestational dating. - The EFW is 1426 g, at the 84%. AC is at the 91%. - Amniotic fluid volume is normal amount with an MVP of 7.2 cm and EDWARD of 18.8 cm. - The placenta is posterior, fundal. - No malformations visualized on a limited survey as detailed below. Recommendations Growth in four weeks Maternal Assessment Height 163 cm Height (ft) 5 ft Height (in) 4 in Physical Exam Initial weight (lb) 196 lb Initial BMI 33.64 kg/m Maternal assessment other: REMOTE READ 3 Para 1 Method Transabdominal ultrasound examination Estrada . Number of fetuses: 1 Dating LMP on: 10/16/2023 Cycle: irregular cycle GA by LMP 31 w + 1 d MARYJANE by LMP: 07/22/2024 GA by prior assessment 28 w + 2 d MARYJANE by prior assessment: 08/11/2024 Ultrasound examination on: 05/21/2024 GA by U/S based upon: AC, BPD, Femur, HC GA by U/S 29 w + 1 d MARYJANE by U/S: 08/05/2024 Assigned: based on stated MARYJANE, selected on 05/21/2024 Assigned GA 28 w + 2 d Assigned MARYJANE: 08/11/2024 General Evaluation Cardiac activity present. FHR 153 bpm. movements: present. Presentation: breech Placenta: Placental site: posterior, fundal Umbilical cord: Cord vessels: 2 vessel cord Amniotic fluid: Amount of AF: normal amount. MVP 7.2 cm. EDWARD 18.8 cm. Q1 3.7 cm, Q2 1.9 cm, Q3 6.0 cm, Q4 7.2 cm Growth Overview Exam date GA BPD (mm) HC (mm) AC (mm) FL (mm) HL (mm) EFW (g) 02/28/2024 16w 3d 34.9 64% 129.8 46% 121.7 90% 22.1 63% 182 83% 03/28/2024 20w 4d 48.6 55% 183.8 55% 163.1 70% 33.5 61% 34.6 88% 387 64% 05/21/2024 28w 2d 71.1 46% 269.6 63% 260.7 91% 54.5 77% 1426 84% Biometry Standard BPD 71.1 mm 28w 4d 46% Hadlock OFD 96.4 mm 28w 3d 68% Nicolaides HC 269.6 mm 28w 6d 63% Agustina AC 260.7 mm 30w 2d 91% Hadlock Femur 54.5 mm 28w 6d 77% Agustina EFW 1,426 g 29w 2d 84% Hadlock EFW (lb) 3 lb EFW (oz) 2 oz EFW by: Hadlock (HC-AC-FL) Extended Validation Architect 5.0 mm Extremities / Bony Struc FL / HC 0.20 Other Structures FHR 153 bpm Anatomy Lateral ventricles: normal Cavum septi pellucidi: normal Cerebellum: normal Cisterna magna: normal 4-chamber view: suboptimally visualized RVOT view: normal LVOT view: suboptimally visualized 3-vessel view: normal Heart / Thorax Situs: situs solitus (normal) Diaphragm: normal Stomach: normal Kidneys: normal Bladder: normal sex: male Wants to know sex: yes Performed By: Elizabeth Gray RDMS, RVT Read By: Florina Lo M.D.MATERNAL [id number] Instructions* Patient Instructions* Haydee Salas MA - 05/21/2024 9:54 AM EDT SEQUENTIAL SCREENINGS The [facility] offers sequential screenings for women who are interested in screenings for chromosomal abnormalities and certain defects during a . The sequential screen combinesultrasound and blood tests to determine the risk of chromosomal abnormalities, including Down's Syndrome (Trisomy 21) and Trisomy 18, as well as open neural tube defects including spina bifida. Ultrasound examination is performed between 11 weeks and 13 weeks gestational age. Blood tests are drawn after the ultrasound and again later in the between 15 and 21 weeks gestational age. Please let your physician know if you are interested in this testing. It will require an appointment withour behavioral health technician. This is not an ultrasound performed by a physician in our office during a routine visit. SIGNS AND SYMPTOMS OF LABOR 1. Contractions every 10 minutes or more often 2. Clear, pink, or brownish fluid (water) leaking from vagina 3. Feeling that baby is pushing down, pressure 4. Low, dull backache 5. Cramps that feel like a period 6. Cramps with or without diarrhea If you notice any of the above symptoms, contact our office at [phone] and ask to speak with anurse. After hours, you can call doctors registry at [phone] OR call [facility] at [phone] ask to have the doctor economic consultant paged. If you consider this an emergency, dial 9--1 or go to your nearest emergency department. NEED HELP? Are you dealing with a violent or abusive relationship? Are you a victim of rape or sexual assult? Call [facility] ([place]) 24 hour Crisis Hotline: 250.227.6146 or 334-810-7891. MANUAL Your Guide to a Healthy manual is now on-line. Visit [email or web address] to download your free copy documented in this encounterUniversity Hospitals Cleveland [facility] Center04-15-2025 Telephone encounter Note * Telephone Encounter - Jenise Walker RN - 05/20/2024 1:19 PM EDT Spoke with patient. She is comfortable monitoring at home. Cancelled today's visit. Prefers to be seen tomorrow. Jenise Walker RN [facility]04-15-2025 Miscellaneous Notes* Telephone Encounter - Jenise Walker RN - 05/20/2024 1:19 PM EDT Spoke with patient. She is comfortable monitoring at home. Cancelled today's visit. Prefers to be seen tomorrow. Jenise Walker RN * Telephone Encounter - Jenise Nieves MD - 05/20/2024 1:15 PM EDT Labs from the ED are normal. Cervix closed. If she feels she can manage at home and wants to wait until tomorrow that's ok * Telephone Encounter - Zohra Cortés RN - 05/20/2024 12:48 PM EDT 28w1d Pt calls stating her abdomin feels more like cramping/below belly button/ feels same than when in ER-more midline than right sided. When standing has a lot of tightness/pressure in vaginal area. Denies LOF, Vaginal bleeding, fever, diarrhea, constipation, or vomiting C/o nausea- has not tried taking anything for the nausea. Discussed with Pt medications on healthy guide-Vitamin B6 & Unisom that can help. Active movement. Pt states she feels dehydrated, has been drinking water & liquid IV packets. Has been eating. Encouraged Pt to continue drinking water & liquid IV. In ER-urine and blood work completed, but Pt did not get results. Appt scheduled with DM today at 2:20pm. Pt does has US and OB appt scheduled tomorrow. Please advise after reviewing ER records-do you feelPt needs seen today or okay to wait until tomorrow? Zohra Cortés RN * Telephone Encounter - Jenise Walker RN - 05/20/2024 10:16 AM EDT 28w1d ER records in [facility] documented in this encounterUniversity Hospitals Cleveland [facility] Center04-15-2025 Telephone encounter Note * Telephone Encounter - Jenise Nieves MD - 05/20/2024 1:15 PM EDT Labs from the ED are normal. Cervix closed. If she feels she can manage at home and wants to wait until tomorrow that's ok [facility]04-15-2025 Telephone encounter Note* Telephone Encounter - Zohra Cortés RN - 05/20/2024 12:48 PM EDT 28w1d Pt calls stating her abdomin feels more like cramping/below belly button/ feels same than when in ER-more midline than right sided. When standing has a lot of tightness/pressure in vaginal area. Denies LOF, Vaginal bleeding, fever, diarrhea, constipation, or vomiting C/o nausea- has not tried taking anything for the nausea. Discussed with Pt medications on healthy guide-Vitamin B6 & Unisom that can help. Active movement. Pt states she feels dehydrated, has been drinking water & liquid IV packets. Has been eating. Encouraged Pt to continue drinking water & liquid IV. In ER-urine and blood work completed, but Pt did not get results. Appt scheduled with DM today at 2:20pm. Pt does has US and OB appt scheduled tomorrow. Please advise after reviewing ER records-do you feelPt needs seen today or okay to wait until tomorrow? Zohra Cortés RN [facility]04-15-2025 Telephone encounter Note* Telephone Encounter - Jenise Walker RN - 05/20/2024 10:16 AM EDT 28w1d ER records in [facility]04-13-2025 NoteHNO ID: [id number] Author: SUSANA ANDREW RN Service: Nursing Author Type: Registered Nurse Type: Procedures Filed: 05/18/2024 16:02 Note Text: Attestation signed by Omar Arthur MD at 05/18/2024 7:53 PM OBSTETRICS MONITORING ASSESSMENT NST Interpretation: FHR Category: 1 (05/18/241556 : Susaan Andrew RN) Disposition: PROVIDER INTERPRETATION: Reactive SIGNATURE: Omar Arthur MD PATIENT NAME: Richard Smith DATE: May 18, 2024 TIME: 7:53 PM OBSTETRICS NST SUMMARY SERVICE DATE: May 18, 2024 The patient is a 29 year old female, , who is at 27w6d with an MARYJANE of 08/11/2024, by Ultrasound dating method. NST OBJECTIVE FINDINGS PER NURSE: Start Time: 1536 (05/18/241536 : Susana Andrew RN) Complete Time: 155 (05/18/241556 : Susana Andrew RN) Indications: Other: Comment (abd pain) (05/18/241536 : Susana Andrew RN) Patient Reason For: to check baby (05/18/241536 : Susana Andrew RN) NST Explanation: Procedure Explained, Monitor Explained, Verbalizes Understanding (05/18/241536 : Susana Andrew RN) Acoustic Stimulator: No (05/18/241556 : Susana Andrew RN) Interventions: Reposition (05/18/241556 : Susana Andrew RN) MONITORING/ASSESSMENT: Baseline: 140 bpm (05/18/241556 : Susana Andrew RN) Variability: Moderate (6-25 bpm) (05/18/241556 : Susana Andrew RN) Accelerations: Present (05/18/247 : Susana Andrew RN) Decelerations: Decelerations: None (05/18/241556 : Susana Andrew, RN) Contractions: Not present (05/18/24 1557 : Susana Andrew, HAYDEN) Frequency: Above information forwarded to Dr. Allen (05/18/24 1557 : Susana Andrew, RN) for final review and interpretation. SIGNATURE: Susana Andrew RN PATIENT NAME: Richard Smith DATE: May 18, 2024 TIME: 4:02 [facility]03-18-2025 Progress note* Quick Notes - Jenise Nieves MD - 04/22/2024 1:26 PM EDT S: Richard Smith is a 28 year old female who presents at 08/11/2024, by Ultrasound for a routine visit. Denies headache, visual changes, chest pain, shortness of breath, vaginal bleeding, leakage of fluid, or dysuria. Feeling well, no complaints. Good movement, No contractions O: See flow sheet Gen: No apparent distress Abd: Gravid, nontender US scheduled for 28 weeks Reviewed labs for next visit. ASSESSMENT/PLAN: 1. 24 weeks gestation of - ICD9: V22.2, ICD10: Z3A.24 (primary diagnosis) - GESTATIONAL GLUCOSE SCREEN, 1-HOUR, 50 GRAM, NON-FASTING - SYPHILIS TREPONEMAL W/REFLEX - ANEMIA REFLEX PANEL 2. Supervision of high risk in second trimester - ICD9: V23.9, ICD10: O09.92 - GESTATIONAL GLUCOSE SCREEN, 1-HOUR, 50 GRAM, NON-FASTING - SYPHILIS TREPONEMAL W/REFLEX - ANEMIA REFLEX PANEL 3. Obesity affecting in first trimester, unspecified obesity type - ICD9: 649.13, ICD10: O99.211 NST testing at 32 weeks 4. History of pre-eclampsia - ICD9: V13.29, ICD10: Z87.59 5. Rubella non-immune status, antepartum - ICD9: 646.83, V15.83, ICD10: O09.899, Z28.39 6. Screening for diabetes mellitus - ICD9: V77.1, ICD10: Z13.1 - GESTATIONAL GLUCOSE SCREEN, 1-HOUR, 50 GRAM, NON-FASTING Jenise Nieves MD [facility]03-18-2025 Miscellaneous Notes* Quick Notes - Jenise Nieves MD - 04/22/2024 1:26 PM EDT S: Richard Smith is a 28 year old female who presents at 08/11/2024, by Ultrasound for a routine visit. Denies headache, visual changes, chest pain, shortness of breath, vaginal bleeding, leakage of fluid, or dysuria. Feeling well, no complaints. Good movement, No contractions O: See flow sheet Gen: No apparent distress Abd: Gravid, nontender US scheduled for 28 weeks Reviewed labs for next visit. ASSESSMENT/PLAN: 1. 24 weeks gestation of - ICD9: V22.2, ICD10: Z3A.24 (primary diagnosis) - GESTATIONAL GLUCOSE SCREEN, 1-HOUR, 50 GRAM, NON-FASTING - SYPHILIS TREPONEMAL W/REFLEX - ANEMIA REFLEX PANEL 2. Supervision of high risk in second trimester - ICD9: V23.9, ICD10: O09.92 - GESTATIONAL GLUCOSE SCREEN, 1-HOUR, 50 GRAM, NON-FASTING - SYPHILIS TREPONEMAL W/REFLEX - ANEMIA REFLEX PANEL 3. Obesity affecting in first trimester, unspecified obesity type - ICD9: 649.13, ICD10: O99.211 NST testing at 32 weeks 4. History of pre-eclampsia - ICD9: V13.29, ICD10: Z87.59 5. Rubella non-immune status, antepartum - ICD9: 646.83, V15.83, ICD10: O09.899, Z28.39 6. Screening for diabetes mellitus - ICD9: V77.1, ICD10: Z13.1 - GESTATIONAL GLUCOSE SCREEN, 1-HOUR, 50 GRAM, NON-FASTING Jenise Nieves MD documented in this encounterUniversity Hospitals Cleveland [facility] Center03-18-2025 Instructions* Patient Instructions* Reny Joe MA - 04/22/2024 12:53 PM EDT SEQUENTIAL SCREENINGS The [facility] offers sequential screenings for women who are interested in screenings for chromosomal abnormalities and certain defects during a . The sequential screen combinesultrasound and blood tests to determine the risk of chromosomal abnormalities, including Down's Syndrome (Trisomy 21) and Trisomy 18, as well as open neural tube defects including spina bifida. Ultrasound examination is performed between 11 weeks and 13 weeks gestational age. Blood tests are drawn after the ultrasound and again later in the between 15 and 21 weeks gestational age. Please let your physician know if you are interested in this testing. It will require an appointment withour behavioral health technician. This is not an ultrasound performed by a physician in our office during a routine visit. SIGNS AND SYMPTOMS OF LABOR 1. Contractions every 10 minutes or more often 2. Clear, pink, or brownish fluid (water) leaking from vagina 3. Feeling that baby is pushing down, pressure 4. Low, dull backache 5. Cramps that feel like a period 6. Cramps with or without diarrhea If you notice any of the above symptoms, contact our office at [phone] and ask to speak with anurse. After hours, you can call doctors registry at [phone] OR call [facility] at [phone] ask to have the doctor economic consultant paged. If you consider this an emergency, dial 0-2-9 or go to your nearest emergency department. NEED HELP? Are you dealing with a violent or abusive relationship? Are you a victim of rape or sexual assult? Call [facility] ([place]) 24 hour Crisis Hotline: 112.355.9243 or 996-095-0208. MANUAL Your Guide to a Healthy manual is now on-line. Visit [email or web address] to download your free copy documented in this encounterUniversity Hospitals Cleveland Medical Center03-12-2025 History of Present illness Narrative* Reagan Bermeo MD - 04/16/2024 1:30 PM EDT Susana Castillo MD NAME: Richard Raymond [facility] Number.: [id number] Date of : 1995 Date of Visit: April 16, 2024 Dear Susana Castillo MD : Ms. Richard Smith was seen for echocardiogram and pediatric cardiology consultation on April 16, 2024. She is a 28 year old woman, referred due to single umbilical artery seen on recent ultrasound. NIPT was low risk. She herself has a significant past medical history of hypothyroidism There is no family history of congenital heart disease, though the father of the baby reports he was born with Oomphalocele and had to have surgery as an infant.. echocardiogram on April 16, 2024 at 23-2/7 weeks gestation shows atrial situs solitus with levocardia. SVC and IVC return normally to the right atrium. The os of the coronary sinus opens normally to the right atrium. One right and one left pulmonary vein were seen returning normally into the left atrium. The atria were normal in size and there was normal right to left shunting at the atriallevel. The left and right ventricles were normal in size and shortening. No ventricular hypertrophy. The ventricular septum appeared intact. Normal mitral and tricuspid valves without significant regurgitation. The left and right ventricular outflow tracts were widely patent. The aortic and ductal a rches were widely patent. heart rate and rhythm were overall regular with infrequent premature atrial contraction seen, and no pericardial effusion was seen. Normal Doppler of umbilical artery,vein, ductus venosus. In summary, the echocardiogram today showed normal intracardiac anatomy with normal ventricular function. Overall normal heart rate and rhythm with very occasional premature atrial contractionsseen. We discussed these findings with Ms. Richard Smith and her partner. In general premature atrial contraction are benign in the setting of a structurally normal heart. Especially because they are infrequent, we did not feel special follow up was required, however discussed that in many cases they resolve spontaneously; in rare cases they are associated with progression in frequency of SVT. If there should be concern for this, please re-refer. . In addition, the limitations of the echocardiogram and echocardiography in general, including the inability to exclude ASDs, some VSDs, minor valvar abnormalities, partial anomalous pulmonaryvenous return, persistent patent ductus arteriosus, and coarctation of the aorta, were explained. Based on these data we did not recommend any specific further or cardiac evaluation, though we would be happy to see her back should new concerns arise. Thank you for allowing me to participate in the care of your patient and please do not hesitate to contact me if I can be any further assistance. During this patient visit I have reviewed prior notes and imaging including from referring maternalfetal medicine specialists, devoted time to counseling/coordination of care regarding results of the echocardiogram, clincal manifestations of the identified disease, prognosis, test results and treatment options, formulated and provided my recommendations to other caregivers by verbal and written communication as appropriate and assisted in coordination of care as needed. Sincerely, Reagan Bermeo MD Medical Decision Making: Problems: Moderate: New problem with uncertain prognosis Data: Unique source(s) for external note(s) reviewed: 1 Unique test result(s) reviewed: 2 Risk: Low: Low risk from testing/treatment Medical Decision Making Level: 4 - Moderate documented in this encounterUniversity Hospitals Cleveland [facility] Center03-12-2025 NoteHNO ID: [id number] Author: REAGAN BERMEO MD Service: ? Author Type: Physician Type: Progress Notes Filed: 04/16/2024 14:20 Note Text: Susana Castillo MD NAME: Richard Smith [facility] Number.: [id number] Date of : 1995 Date of Visit: April 16, 2024 Dear Susana Castillo MD : Ms. Richard Smith was seen for echocardiogram and pediatric cardiology consultation on April 16, 2024. She is a 28 year old woman, referred due to single umbilical artery seen on recent ultrasound. NIPT was low risk. She herself has a significant past medical history of hypothyroidism There is no family history of congenital heart disease, though the father of the baby reports he was born with Oomphalocele and had to have surgery as an infant.. echocardiogram on April 16, 2024 at 23-2/7 weeks gestation shows atrial situs solitus with levocardia. SVC and IVC return normally to the right atrium. The os of the coronary sinus opens normally to the right atrium. One right and one left pulmonary vein were seen returning normally into the left atrium. The atria were normal in size and there was normal right to left shunting at the atrial level. The left and right ventricles were normal in size and shortening. No ventricular hypertrophy. The ventricular septum appeared intact. Normal mitral and tricuspid valves without significant regurgitation. The left and right ventricular outflow tracts were widely patent. The aortic and ductal arches were widely patent. heart rate and rhythm were overall regular with infrequent premature atrial contraction seen, and no pericardial effusion was seen. Normal Doppler of umbilical artery, vein, ductus venosus. In summary, the echocardiogram today showed normal intracardiac anatomy with normal ventricular function. Overall normal heart rate and rhythm with very occasional premature atrial contractions seen. We discussed these findings with Ms. Richard Smith and her partner. In general premature atrial contraction are benign in the setting of a structurally normal heart. Especially because they are infrequent, we did not feel special follow up was required, however discussed that in many cases they resolve spontaneously; in rare cases they are associated with progression in frequency of SVT. If there should be concern for this, please re-refer. . In addition, the limitations of the echocardiogram and echocardiography in general, including the inability to exclude ASDs, some VSDs, minor valvar abnormalities, partial anomalous pulmonary venous return, persistent patent ductus arteriosus, and coarctation of the aorta, were explained. Based on these data we did not recommend any specific further or cardiac evaluation, though we would be happy to see her back should new concerns arise. Thank you for allowing me to participate in the care of your patient and please do not hesitate to contact me if I can be any further assistance. During this patient visit I have reviewed prior notes and imaging including from referring maternal medicine specialists, devoted time to counseling/coordination of care regarding results of the echocardiogram, clincal manifestations of the identified disease, prognosis, test results and treatment options, formulated and provided my recommendations to other caregivers by verbal and written communication as appropriate and assisted in coordination of care as needed. Sincerely, Reagan Bermeo MD Medical Decision Making: Problems: Moderate: New problem with uncertain prognosis Data: Unique source(s) for external note(s) reviewed: 1 Unique test result(s) reviewed: 2 Risk: Low: Low risk from testing/treatment Medical Decision Making Level: 4 - [facility]erateC[facility] Telephone encounter Note* Telephone Encounter - Elsa Chaudhary APRN.CNM - 04/02/2024 4:28 PM EST She should also try wearing tight compression stockings while on feet. This can help! Elsa Chaudhary APRN.CNM [facility]02-26-2025 Miscellaneous Notes* Telephone Encounter - Elsa Chaudhary APRN.CNM - 04/02/2024 4:28 PM EST She should also try wearing tight compression stockings while on feet. This can help! Elsa Chaudhary APRN.CNM * Telephone Encounter - Thais Kamara LPN - 04/02/2024 9:19 AM EST Ob patient is 21w2d documented in this encounterUniversity Hospitals Cleveland Medical Center02-26-2025 Telephone encounter Note * Telephone Encounter - Thais Kamara LPN - 04/02/2024 9:19 AM EST Ob patient is 21w2d [facility]02-25-2025 Telephone encounter Note* Telephone Encounter - Alan Haynes MA - 04/01/2024 1:56 PM EST [facility] paperwork has been faxed back to employer. Patient notified via [employer]. Alan Haynes MA [facility]02-25-2025 Miscellaneous Notes* Telephone Encounter - Alan Haynes MA - 04/01/2024 1:56 PM EST [facility] paperwork has been faxed back to employer. Patient notified via [employer]. Alan Haynes MA * Telephone Encounter - Alan Haynes MA - 04/01/2024 11:49 AM EST [facility] paperwork completed and on providers desk for signature. Alan Haynes MA documented in this encounterUniversity Hospitals Cleveland Medical Center02-25-2025 Telephone encounter Note * Telephone Encounter - Alan Haynes MA - 04/01/2024 11:49 AM EST [place] paperwork completed and on providers desk for signature. Alan Haynes MA [facility]02-24-2025 Telephone encounter Note* Telephone Encounter - Jenise Cazares RN - 03/31/2024 9:46 AM EST 2nd risk assessment form submitted 03/31/2024. Jenise Cazares RN [facility]02-24-2025 Miscellaneous Notes* Telephone Encounter - Jenise Cazares RN - 03/31/2024 9:46 AM EST 2nd risk assessment form submitted 03/31/2024. Jenise Cazares RN documented in this encounterUniversity Hospitals Cleveland Medical Center02-24-2025 Telephone encounter Note * Telephone Encounter - Elizabeth Clarke RN - 03/31/2024 9:25 AM EST [employer] message sent to patient. Elizabeth Clarke RN [facility]02-24-2025 Miscellaneous Notes* Telephone Encounter - Elizabeth Clarke RN - 03/31/2024 9:25 AM EST [employer] message sent to patient. Elizabeth Clarke RN * Telephone Encounter - Susana Castillo MD - 03/31/2024 9:14 AM EST filed * Telephone Encounter - Juana Traylor RN - 03/31/2024 8:44 AM EST Patient notified. She does want to proceed with echo. Please file order. Will send patient [employer] message with phone number once order is filed. Juana Traylor RN * Telephone Encounter - Juana Traylor RN - 03/28/2024 5:11 PM EST Left message for patient to call office. Juana Traylor RN * Telephone Encounter - Juana Traylor RN - 03/28/2024 5:10 PM EST Susana Castillo MD to [facility] Ob-Dye Tub Tender Pool 03/28/24 1:13 PM Result Note Add to record Had visit with SHANE today and looks like she discussed SUA with pt Can offer echo Will need growth US q 4 weeks starting at 28 weeks documented in this encounterUniversity [facility]02-24-2025 Telephone encounter Note * Telephone Encounter - Susana Castillo MD - 03/31/2024 9:14 AM EST filed [facility]02-24-2025 Telephone encounter Note* Telephone Encounter - Juana Traylor RN - 03/31/2024 8:44 AM EST Patient notified. She does want to proceed with echo. Please file order. Will send patient [employer] message with phone number once order is filed. Juana Traylor RN [facility]02-21-2025 Telephone encounter Note* Telephone Encounter - Yazmin Hall RN - 03/28/2024 5:21 PM EST Patient returning missed call from Dr Borrego's office regarding results. Patient made aware that office is now closed and will reopen on Sunday. Patient states understanding. Patient denies any new or worsening symptoms of which a provider is not aware:Yes . [facility]02-21-2025 Miscellaneous Notes* Telephone Encounter - Yazmin Hall RN - 03/28/2024 5:21 PM EST Patient returning missed call from Dr Borrego's office regarding results. Patient made aware that office is now closed and will reopen on Sunday. Patient states understanding. Patient denies any new or worsening symptoms of which a provider is not aware:Yes . documented in this encounterUniversity [facility]als [facility]02-21-2025 Telephone encounter Note * Telephone Encounter - Juana Traylor RN - 03/28/2024 5:11 PM EST Left message for patient to call office. Juana Traylor RN [facility]02-21-2025 Telephone encounter Note* Telephone Encounter - Juana Traylor RN - 03/28/2024 5:10 PM EST Susana Castillo MD to [facility] Ob-Dye Tub Tender Pool 03/28/24 1:13 PM Result Note Add to record Had visit with SHANE today and looks like she discussed SUA with pt Can offer echo Will need growth US q 4 weeks starting at 28 weeks [facility]02-21-2025 Instructions* Patient Instructions* John Banerjee MD - 03/28/2024 10:54 AM EST Please increase the dose of levothyroxine to 100 mcg daily Repeat labs in 6 to 8 weeks Give about 45mins to 60 mins after thyroid medication to eat or drink anything except water Continue to take vitamins at dinner documented in this encounterUniversity Hospitals [facility]02-21-2025 NoteHNO ID: [id number] Author: JOHN BANERJEE MD Service: ? Author Type: Physician Type: Progress Notes Filed: 03/29/2024 19:33 Note Text: [facility] Initial Clinic Visit Note CONSULTING PROVIDER: Elkin Martinez APRN. CNP My final recommendations will be communicated back to the requesting provider by way of shared Medical record or a letter via [place] mail Subjective: Richard Smith is a 28 year old female here to establish care for hypothyroidism. History in brief, Thyroid labs were checked during , and she was started on 88 mcg of levothyroxine based on lab results in first trimester in 12/2023 This is her second , and is at 20 weeks of gestation Labs were normal during her first Current treatment: Levothyroxine 88 mcg daily since 12/2023 She takes on empty stomach, waiting 30 mins before eating or drinking anything Takes at dinner time No symptoms of hypo or hyperthyroidism FH: no thyroid issues REVIEW OF SYSTEMS: GENERAL:No weight loss, malaise or fevers HEENT:Negative for frequent or significant headaches, No changes in hearing or vision, no nose bleeds or other nasal problems NECK:Negative for lumps, goiter, pain and significant neck swelling RESPIRATORY: Negative for cough, hemoptysis, wheezing or shortness of breath CARDIOVASCULAR: Negative for chest pain, leg swelling or palpitations GASTROINTESTINAL: No nausea, vomiting, or persistent diarrhea GENITOURINARY: no dysuria, Polyuria, no changes in urinary frequency MUSCULOSKELETAL:no muscle aches, arthralgia NEUROLOGIC: no numbness, tingling, no Paresthesias, no headaches SKIN:Negative for lesions, rash, and itching PSYCHIATRIC: Negative for sleep disturbance, mood disorder and recent psychosocial stressors. HEMATOLOGIC/LYMPHATIC/IMMUNOLOGIC:Negative for prolonged bleeding, bruising easily ENDOCRINE: Negative for cold or heat intolerance or goiter ALLERGIES: ALLERGIES Allergen Reactions Imitrex [Sumatripta* Other: See Comments Patient stated her jaw locked up and hurt really bad MEDICATIONS: Current Outpatient Medications on File Prior to Visit Medication Sig levothyroxine (SYNTHROID) 88 mcg tablet Take 1 tablet by mouth daily before breakfast. aspirin, enteric coated (ECOTRIN LOW STRENGTH) 81 mg EC tablet Take 1 tablet by mouth once daily. vit no.124/iron/folic ( VITAMIN ORAL) Take by mouth. cetirizine (ZYRTEC) 10 mg tablet Take 1 tablet by mouth once daily. fluticasone (FLONASE) 50 mcg/actuation nasal spray Use 2 Sprays in each nostril once daily. Rinse mouth after use. No current facility-administered medications on file prior to visit. PAST MEDICAL HISTORY: PAST MEDICAL HISTORY Diagnosis Date Abnormal Pap smear of cervix anxiety Calculus of gallbladder without biliary obstruction 08/10/2019 Cervical intraepithelial neoplasia grade 1 2016 COVID-19 virus infection 01/30/2020 Positive test 01/17/20 (symptoms started 01/15) Overall symptoms gradually improving and almost resolved today. Completed course of decadron for respiratory symptoms. Reassured patient that feels that her course of illness is near complete and happy that her symptoms seem to be resolved. No further action at this time. Dyslipidemia (high LDL; low HDL) 06/05/2022 Elevated glucose 09/01/2019 Patient had elevated glucose on last BMP. BMI elevated, No FM history of diabetes. 08/2019: Hba1c 5.3 Elevated liver enzymes 2019 Noted hepatic steatosis on RUQ US in 2019 JORJE (generalized anxiety disorder) 11/25/2019 Likes current dose of zoloft. Continue. 11/25/2019 JORJE 7:11 PHQ 9: 4 Counseling referral placed. Interested in medications, will plan to start zoloft, titrate from 25 mg to 50 mg in next week. Will message in 4 weeks on symptoms. HISTORICAL prozac in past with minimal relief. Gastroesophageal reflux disease 11/03/2019 Symptoms of burning after eating, didn't seem to improve with Pepcid alone -Plan: begin PPI trial x 4 weeks, recommended she return in 2-4 weeks or sooner if symptoms are not improving Hypertriglyceridemia 06/05/2022 Inverted nipple Migraine variant 01/07/2013 Seems to be more tension headache then migraine. ibuprofen prn has provided relief Historical: Patient tried amitriptyline which helped with headaches but made too fatigued Pure hypercholesterolemia 06/05/2022 Seasonal allergies flonase. Shingles outbreak PAST SURGICAL HISTORY: PAST SURGICAL HISTORY Procedure Laterality Date CHOLECYSTECTOMY HX 08/2019 DANDC, DIAG AND/OR THERAPEUTIC 2019 Missed ab FAMILY HISTORY: FAMILY HISTORY Problem Relation Age of Onset Anxiety disorder Mother No Known Problems Father Anxiety disorder Sister No Known Problems Sister No Known Problems Brother No Known Problems Brother Hypertension Maternal Grandmother Lipids Maternal Grandmother COPD Maternal Grandfather other (smoker) Materna (more content not included)...[facility] 03-28-2024 History of Present illness Narrative* John Banerjee MD - 03/28/2024 10:43 AM EST [facility] Initial Clinic Visit Note CONSULTING PROVIDER: Elkin Martinez APRN. [employer] My final recommendations will be communicated back to the requesting provider by way of shared Medical record or a letter via [place] mail Subjective: Richard Smith is a 28 year old female here to establish care for hypothyroidism. History in brief, Thyroid labs were checked during , and she was started on 88 mcg of levothyroxine based onlab results in first trimester in 12/2023 This is her second , and is at 20 weeks of gestation Labs were normal during her first Current treatment: Levothyroxine 88 mcg daily since 12/2023 She takes on empty stomach, waiting 30 mins before eating or drinking anything Takes at dinner time No symptoms of hypo or hyperthyroidism FH: no thyroid issues REVIEW OF SYSTEMS: GENERAL:No weight loss, malaise or fevers HEENT:Negative for frequent or significant headaches, No changes in hearing or vision, no nose bleeds or other nasal problems NECK:Negative for lumps, goiter, pain and significant neck swelling RESPIRATORY: Negative for cough, hemoptysis, wheezing or shortness of breath CARDIOVASCULAR: Negative for chest pain, leg swelling or palpitations GASTROINTESTINAL: No nausea, vomiting, or persistent diarrhea GENITOURINARY: no dysuria, Polyuria, no changes in urinary frequency MUSCULOSKELETAL:no muscle aches, arthralgia NEUROLOGIC: no numbness, tingling, no Paresthesias, no headaches SKIN:Negative for lesions, rash, and itching PSYCHIATRIC: Negative for sleep disturbance, mood disorder and recent psychosocial stressors. HEMATOLOGIC/LYMPHATIC/IMMUNOLOGIC:Negative for prolonged bleeding, bruising easily ENDOCRINE: Negative for cold or heat intolerance or goiter ALLERGIES: ALLERGIES Allergen Reactions Imitrex [Sumatripta* Other: See Comments Patient stated her jaw locked up and hurt really bad MEDICATIONS: Current Outpatient Medications on File Prior to Visit Medication Sig levothyroxine (SYNTHROID) 88 mcg tablet Take 1 tablet by mouth daily before breakfast. aspirin, enteric coated (ECOTRIN LOW STRENGTH) 81 mg EC tablet Take 1 tablet by mouth once daily. vit no.124/iron/folic ( VITAMIN ORAL) Take by mouth. cetirizine (ZYRTEC) 10 mg tablet Take 1 tablet by mouth once daily. fluticasone (FLONASE) 50 mcg/actuation nasal spray Use 2 Sprays in each nostril once daily. Rinse mouth after use. No current facility-administered medications on file prior to visit. PAST MEDICAL HISTORY: PAST MEDICAL HISTORY Diagnosis Date Abnormal Pap smear of cervix anxiety Calculus of gallbladder without biliary obstruction 08/10/2019 Cervical intraepithelial neoplasia grade 1 2016 COVID-19 virus infection 01/30/2020 Positive test 01/17/20 (symptoms started 01/15) Overall symptoms gradually improving and almost resolved today. Completed course of decadron for respiratory symptoms. Reassured patient that feels that her course of illness is near complete and happy that her symptoms seem to be resolved. No furtheraction at this time. Dyslipidemia (high LDL; low HDL) 06/05/2022 Elevated glucose 09/01/2019 Patient had elevated glucose on last BMP. BMI elevated, No FM history of diabetes. 08/2019: Hba1c 5.3 Elevated liver enzymes 2019 Noted hepatic steatosis on RUQ US in 2019 JORJE (generalized anxiety disorder) 11/25/2019 Likes current dose of zoloft. Continue. 11/25/2019 JORJE 7:11 PHQ 9: 4 Counseling referral placed. Interested in medications, will plan to start zoloft, titrate from 25 mg to 50 mg in next week. Will message in 4 weeks on symptoms. HISTORICAL prozac in past with minimal relief. Gastroesophageal reflux disease 11/03/2019 Symptoms of burning after eating, didn't seem to improve with Pepcid alone - Plan: begin PPI trial x4 weeks, recommended she return in 2-4 weeks or sooner if symptoms are not improving Hypertriglyceridemia 06/05/2022 Inverted nipple Migraine variant 01/07/2013 Seems to be more tension headache then migraine. ibuprofen prn has provided relief Historical: Patient tried amitriptyline which helped with headaches but made too fatigued Pure hypercholesterolemia 06/05/2022 Seasonal allergies flonase. Shingles outbreak PAST SURGICAL HISTORY: PAST SURGICAL HISTORY Procedure Laterality Date CHOLECYSTECTOMY HX 08/2019 D&C, DIAG AND/OR THERAPEUTIC 2019 Missed ab FAMILY HISTORY: FAMILY HISTORY Problem Relation Age of Onset Anxiety disorder Mother No Known Problems Father Anxiety disorder Sister No Known Problems Sister No Known Problems Brother No Known Problems Brother Hypertension Maternal Grandmother Lipids Maternal Grandmother COPD Maternal Grandfather other (smoker) Maternal Grandfather Lung Cancer Paternal Grandmother Cancer Paternal Grandfather bone? SOCIAL HISTORY: Social History Tobacco Use Smoking status: Never Smokeless tobacco: Never Vaping Use Vaping status: Never Used Substance Use Topics Alcohol use: Not Currently Comment: social Drug use: No PHYSICAL EXAM: BP 116/64 Wt 96.6 kg (213 lb) LMP 10/16/2023 (Approximate) BMI 35.92 kg/m Last 3 Encounter Wt Readings: Date: Wt: 03/28/2024 96.6 kg (213 lb) 03/28/2024 96.6 kg (213 lb) 02/28/2024 94.3 kg (208 lb) General: Alert and oriented x3, no acute distress Eyes: Anicteric sclera. Extraocular movements are intact. Neck supple, no cervical lymphadenopathy Thyroid: normal size, normal texture, no palpable nodules Lungs: Breathing unlabored on ambient air Heart regular rate and rhythm, S1 and S2 normal Musculoskeletal: No joint swelling, deformity, or tenderness Neuro: Gait normal. Abdomen: Gravid abdomen on inspection Extremities: without edema, no deformities Skin: no rashes/ erythema LABS: TSH Date Value Ref Range Status 02/28/2024 2.790 0.270 - 4.200 mIU/L Final Comment: If the patient is , TSH reference range varies by gestational period: First Trimester (weeks 9-12): 0.180-2.990 mIU/L Second Trimester: 0.110-3.980 mIU/L Third Trimester: 0.480-4.710 mIU/L Loki Montero et al. A Practical Approach for the Verifications and Determination of Site- and Trimester-Specific Reference Intervals for Thyroid Function tests in . Thyroid, 2019:29:3:412-420.Clifford Lock, et al. 2017 Guidelines of the [place] Thyroid Association for the Diagnosis and Management of Thyroid Disease during and the . Thyroid, 2017:27:3:315-389. Free T4 Date Value Ref Range Status 12/10/2023 0.9 0.9 - 1.7 ng/dL Final Latest Reference Range & Units 01/11/22 08:53 12/07/23 12:03 12/10/23 09:55 02/28/24 11:31 Free T4 0.9 - 1.7 ng/dL 0.9 0.9 TSH 0.270 - 4.200 mIU/L 3.110 6.120 (H) 2.790 THYROID PEROXIDASE ANTIBODY <5.6 IU/mL 2.5 (H): Data is abnormally high ASSESSMENT/PLAN: Acquired hypothyroidism: Complicated by - currently on 88 mcg of levothyroxine daily - recommended increase in dose to 100 mcg daily to keep TSH less than 2.5 in an attempt for better outcome (although reviewed that she is within normal for range) - method of taking medication acceptable. Reviewed appropriate gap for consuming food and drinks except water, after medication intake - new prescription sent - repeat labs in 6 to 8 weeks from dose change- standing labs ordered by OBGYN Follow up in 2 weeks Medical Decision Making: Problems: Moderate: New problem with uncertain prognosis Data: Unique test result(s) reviewed: 3+ Independent interpretation of test from other physician/QHCP Risk: Moderate: Drug management Medical Decision Making Level: 4 - Moderate John Banerjee MD Endocrinology Associate Staff [facility] Endocrinology and Metabolism [place] [phone] documented in this encounterUniversity [facility]als [facility]02-21-2025 Progress note* Quick Notes - Mariana Hilario APRN.CNM - 03/28/2024 10:18 AM EST SHANE-S: Richard Smith is a 28 year old female who presents at 20w4d with MARYJANE:08/11/2024, by Ultrasound for a routine visit. Denies headache, visual changes, chest pain, shortness of breath, vaginal bleeding, leakage of fluid, or dysuria. Feeling well, no complaints. Anatomy US today, awaiting formal resu lts. O: See flow sheet Gen: No apparent distress Abd: Gravid, nontender ASSESSMENT/PLAN: 1. Supervision of high risk in second trimester 2. 20 weeks gestation of 3. Obesity affecting in first trimester, unspecified obesity type -Pregravid BMI 32, no testing 4. Elevated TSH -Referral to endocrinology, has appointment today after visit. -Standing order for TSH and free T4 today -Continue Synthroid, will discuss with endocrinology today. 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 Will await US report for formal result. 6. History of pre-eclampsia -Baseline labs negative -Never started ASA, reviewed not effective at this time and does not need to start 7. Rubella non-immune status, antepartum -Vaccine PP 8. History of anxiety -No medication, coping well. PTL precautions reviewed and when to call RTO in 4 weeks Mariana Hilario APRN.CNM [facility]02-21-2025 Miscellaneous Notes* Quick Notes - Mariana Hilario APRN.CNM - 03/28/2024 10:18 AM EST SHANE-S: Richard Smith is a 28 year old female who presents at 20w4d with MARYJANE:08/11/2024, by Ultrasound for a routine visit. Denies headache, visual changes, chest pain, shortness of breath, vaginal bleeding, leakage of fluid, or dysuria. Feeling well, no complaints. Anatomy US today, awaiting formal resu lts. O: See flow sheet Gen: No apparent distress Abd: Gravid, nontender ASSESSMENT/PLAN: 1. Supervision of high risk in second trimester 2. 20 weeks gestation of 3. Obesity affecting in first trimester, unspecified obesity type -Pregravid BMI 32, no testing 4. Elevated TSH -Referral to endocrinology, has appointment today after visit. -Standing order for TSH and free T4 today -Continue Synthroid, will discuss with endocrinology today. 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 Will await US report for formal result. 6. History of pre-eclampsia -Baseline labs negative -Never started ASA, reviewed not effective at this time and does not need to start 7. Rubella non-immune status, antepartum -Vaccine PP 8. History of anxiety -No medication, coping well. PTL precautions reviewed and when to call RTO in 4 weeks Mariana Hilario APRN.CNM documented in this encounterUniversity Hospitals [facility] Center02-21-2025 Instructions* Patient Instructions* Mariana Hilario APRN.CNM - 03/28/2024 9:59 AM EST What is a single umbilical artery? A two vessel umbilical cord refers to a condition where the umbilical cord only has one artery and one vein, instead of the typical two arteries and one vein, meaning it is missing one of the arteries; this is also called a single umbilical artery (SUA) and is usually detected during an ultrasound during . It happens in about 1 in 100 estrada pregnancies (1 percent) and about 5 in 100 multiple pregnancies (5 percent). A estrada is when you re with just one baby. A multiple means you re with more than one baby (twins, triplets or more). We don t know what causes single umbilical artery. About 2 in 10 babies (20 percent) with a single umbilical artery have health problems, including heart, kidney or digestion problems and genetic conditions. Digestion is the process of how your body breaks down food after you eat. A genetic condition is caused by a gene that s changed from its regular form. A gene can change on its own, or the changed gene can be passed from parents to children. SIGNS AND SYMPTOMS OF LABOR 1. Contractions every 10 minutes or more often 2. Clear, pink, or brownish fluid (water) leaking from vagina 3. Feeling that baby is pushing down, pressure 4. Low, dull backache 5. Cramps that feel like a period 6. Cramps with or without diarrhea If you notice any of the above symptoms, contact our office at [phone] and ask to speak with anurse. After hours, you can call doctors registry at [phone] OR call [facility] at [phone] ask to have the doctor economic consultant paged. If you consider this an emergency, dial 9-1-6 or go to your nearest emergency department. NEED HELP? Are you dealing with a violent or abusive relationship? Are you a victim of rape or sexual assult? Call [facility] ([place]) 24 hour Crisis Hotline: 255.177.2485 or 245-904-1232. MANUAL Your Guide to a Healthy manual is now on-line. Visit [email or web address] to download your free copy documented in this encounterUniversity Hospitals Cleveland Medical Center01-23-2025 Progress note* Quick Notes - Alfred Childress MD - 02/28/2024 10:29 AM EST RR- VB No. LOF No. CTXS No. Movement: present. Other c/o: No. Medication list reviewed. SENSITIVE EXAM: Sensitive exam not performed. Physical Exam See Flow Sheet Abd: soft, nontender, gravid A/P 16w3d Estimated Date of Delivery: 08/11/24 1. Encounter for supervision of high risk in first trimester, antepartum - ICD9: V23.9, ICD10: O09.91 (primary diagnosis) US today, and 20 weeks 2. Elevated TSH - ICD9: 794.5, ICD10: R79.89 cont. med, check TSH, see endocrine as scheduled - LEVOTHYROXINE 88 MCG TABLET - THYROID STIMULATING HORMONE 3. 16 weeks gestation of - ICD9: V22.2, ICD10: Z3A.16 Alfred Childress MD [facility]01-23-2025 Miscellaneous Notes* Quick Notes - Alfred Childress MD - 02/28/2024 10:29 AM EST RR- VB No. LOF No. CTXS No. Movement: present. Other c/o: No. Medication list reviewed. SENSITIVE EXAM: Sensitive exam not performed. Physical Exam See Flow Sheet Abd: soft, nontender, gravid A/P 16w3d Estimated Date of Delivery: 08/11/24 <ASSESSMENT/PLAN: 1. Encounter for supervision of high risk in first trimester, antepartum - ICD9: V23.9, ICD10: O09.91 (primary diagnosis) US today, and 20 weeks 2. Elevated TSH - ICD9: 794.5, ICD10: R79.89 cont. med, check TSH, see endocrine as scheduled - LEVOTHYROXINE 88 MCG TABLET - THYROID STIMULATING HORMONE 3. 16 weeks gestation of - ICD9: V22.2, ICD10: Z3A.16 Alfred Childress MD documented in this encounterUniversity Hospitals Cleveland Medical Center01-23-2025 Instructions* Patient Instructions* Haydee Salas MA - 02/28/2024 9:54 AM EST SEQUENTIAL SCREENINGS [facility] offers sequential screenings for women who are interested in screenings for chromosomal abnormalities and certain defects during a . The sequential screen combinesultrasound and blood tests to determine the risk of chromosomal abnormalities, including Down's Syndrome (Trisomy 21) and Trisomy 18, as well as open neural tube defects including spina bifida. Ultrasound examination is performed between 11 weeks and 13 weeks gestational age. Blood tests are drawn after the ultrasound and again later in the between 15 and 21 weeks gestational age. Please let your physician know if you are interested in this testing. It will require an appointment withour behavioral health technician. This is not an ultrasound performed by a physician in our office during a routine visit. SIGNS AND SYMPTOMS OF LABOR 1. Contractions every 10 minutes or more often 2. Clear, pink, or brownish fluid (water) leaking from vagina 3. Feeling that baby is pushing down, pressure 4. Low, dull backache 5. Cramps that feel like a period 6. Cramps with or without diarrhea If you notice any of the above symptoms, contact our office at [phone] and ask to speak with anurse. After hours, you can call doctors registry at [phone] OR call [facility] at [phone] ask to have the doctor economic consultant paged. If you consider this an emergency, dial 9-1-0 or go to your nearest emergency department. NEED HELP? Are you dealing with a violent or abusive relationship? Are you a victim of rape or sexual assult? Call [facility] ([place]) 24 hour Crisis Hotline: 707.209.3467 or 477-489-4084. MANUAL Your Guide to a Healthy manual is now on-line. Visit [email or web address] to download your free copy documented in this encounterUniversity Hospitals Cleveland Medical Center01-15-2025 Telephone encounter Note * Telephone Encounter - Juana Traylor RN - 02/20/2024 9:52 AM EST Patient notified. Juana Traylor RN [facility]01-15-2025 Miscellaneous Notes* Telephone Encounter - Juana Traylor RN - 02/20/2024 9:52 AM EST Patient notified. Juana Traylor RN * Telephone Encounter - Alfred Childress MD - 02/20/2024 9:38 AM EST yes they are. I hope she feels better soon. Alfred Childress MD * Telephone Encounter - Juana Traylor RN - 02/20/2024 8:49 AM EST 15w2d Calling because she went to [facility] ER last night and was diagnosed with pneumonia. States she was prescribed Z-kalyani, albuterol inhaler and benzonatate. She was told to check with OB provider that meds are safe with for sure. Juana Traylor RN documented in this encounterUniversity Hospitals Cleveland Medical Center01-15-2025 Telephone encounter Note * Telephone Encounter - Alfred Childress MD - 02/20/2024 9:38 AM EST yes they are. I hope she feels better soon. Alfred Childress MD [facility]01-15-2025 Telephone encounter Note* Telephone Encounter - Juana Traylor RN - 02/20/2024 8:49 AM EST 15w2d Calling because she went to [facility] ER last night and was diagnosed with pneumonia. States she was prescribed Z-kalyani, albuterol inhaler and benzonatate. She was told to check with OB provider that meds are safe with for sure. Juana Traylor RN [facility]01-09-2025 NoteHNO ID: [id number] Author: JOSE BRINK APRN.CROSSBOW MAKER Service: ? Author Type: Nurse Practitioner Type: Progress Notes Filed: 02/14/2024 14:54 Note Text: Subjective HPI Nontoxic-appearing 28-year-old female who is currently 14 weeks presents urgent care chief complaint flulike symptoms. Duration of symptoms 4 days. Associated symptoms headache body aches chills sore throat ear pain nausea cough fatigue. States has some chest discomfort with coughing only. Sick contacts possibly at work. Did take Tylenol today. Denies any vomiting fevers abdominal pain shortness of breath or hemoptysis. No pleuritic pain. Past medical history prescription medications allergies reviewed. .Patient presents with: Headache: Body aches, ear pain, nausea, sore throat, cough, chest feels on fire x 4 days PAST MEDICAL HISTORY Diagnosis Date Abnormal Pap smear of cervix anxiety Calculus of gallbladder without biliary obstruction 08/10/2019 Cervical intraepithelial neoplasia grade 1 2016 COVID-19 virus infection 01/30/2020 Positive test 01/17/20 (symptoms started 01/15) Overall symptoms gradually improving and almost resolved today. Completed course of decadron for respiratory symptoms. Reassured patient that feels that her course of illness is near complete and happy that her symptoms seem to be resolved. No further action at this time. Dyslipidemia (high LDL; low HDL) 06/05/2022 Elevated glucose 09/01/2019 Patient had elevated glucose on last BMP. BMI elevated, No FM history of diabetes. 08/2019: Hba1c 5.3 Elevated liver enzymes 2019 Noted hepatic steatosis on RUQ US in 2019 JORJE (generalized anxiety disorder) 11/25/2019 Likes current dose of zoloft. Continue. 11/25/2019 JORJE 7:11 PHQ 9: 4 Counseling referral placed. Interested in medications, will plan to start zoloft, titrate from 25 mg to 50 mg in next week. Will message in 4 weeks on symptoms. HISTORICAL prozac in past with minimal relief. Gastroesophageal reflux disease 11/03/2019 Symptoms of burning after eating, didn't seem to improve with Pepcid alone -Plan: begin PPI trial x 4 weeks, recommended she return in 2-4 weeks or sooner if symptoms are not improving Hypertriglyceridemia 06/05/2022 Inverted nipple Migraine variant 01/07/2013 Seems to be more tension headache then migraine. ibuprofen prn has provided relief Historical: Patient tried amitriptyline which helped with headaches but made too fatigued Pure hypercholesterolemia 06/05/2022 Seasonal allergies flonase. Shingles outbreak PAST SURGICAL HISTORY Procedure Laterality Date CHOLECYSTECTOMY HX 08/2019 DANDC, DIAG AND/OR THERAPEUTIC 2019 Missed ab ALLERGIES Imitrex [Sumatriptan] MEDICATIONS levothyroxine (SYNTHROID) 88 mcg tablet Take 1 tablet by mouth daily before breakfast. aspirin, enteric coated (ECOTRIN LOW STRENGTH) 81 mg EC tablet Take 1 tablet by mouth once daily. vit no.124/iron/folic ( VITAMIN ORAL) Take by mouth. cetirizine (ZYRTEC) 10 mg tablet Take 1 tablet by mouth once daily. fluticasone (FLONASE) 50 mcg/actuation nasal spray Use 2 Sprays in each nostril once daily. Rinse mouth after use. FAMILY HISTORY Problem Relation Age of Onset Anxiety disorder Mother No Known Problems Father Anxiety disorder Sister No Known Problems Sister No Known Problems Brother No Known Problems Brother Hypertension Maternal Grandmother Lipids Maternal Grandmother COPD Maternal Grandfather other (smoker) Maternal Grandfather Lung Cancer Paternal Grandmother Cancer Paternal Grandfather bone? Social History Tobacco Use Smoking status: Never Smokeless tobacco: Never Vaping Use Vaping status: Never Used Substance Use Topics Alcohol use: Not Currently Comment: social Drug use: No BP 105/72 Pulse 100 Temp 36.8 ?C (98.3 ?F) Resp 18 Wt 95 kg (209 lb 7 oz) LMP 10/16/2023 (Approximate) SpO2 98% BMI 35.32 kg/m? Review of Systems Constitutional: Positive for chills and malaise/fatigue. Negative for fever. HENT: Positive for congestion and sore throat. Negative for ear discharge, ear pain and sinus pain. Eyes: Negative for blurred vision, pain, discharge and redness. Respiratory: Positive for cough. Negative for hemoptysis, sputum production, shortness of breath, wheezing and stridor. Cardiovascular: Negative for chest pain. Gastrointestinal: Negative for abdominal pain, diarrhea, nausea and vomiting. Musculoskeletal: Positive for myalgias. Skin: Negative for itching and rash. Neurological: Positive for headaches. Negative for dizziness. Objective Physical Exam Constitutional: General: She is not in acute distress. Appearance: She is not diaphoretic. HENT: Head: Normocephalic. Jaw: No trismus, tenderness, swelling or pain on movement. Right Ear: Tympanic membrane, ear canal and external ear normal. Left Ear: Tympanic membrane, ear canal and external ear normal. Nose (more content not included)...[facility]01-09-2025 History of Present illness Narrative* Jose Brink APRN.CROSSBOW MAKER - 02/14/2024 2:42 PM EST Subjective HPI Nontoxic-appearing 28-year-old female who is currently 14 weeks presents urgent care chiefcomplaint flulike symptoms. Duration of symptoms 4 days. Associated symptoms headache body aches chills sore throat ear pain nausea cough fatigue. States has some chest discomfort with coughing only.Sick contacts possibly at work. Did take Tylenol today. Denies any vomiting fevers abdominal pain shortness of breath or hemoptysis. No pleuritic pain. Past medical history prescription medications allergies reviewed. .Patient presents with: Headache: Body aches, ear pain, nausea, sore throat, cough, chest feels on fire x 4 days PAST MEDICAL HISTORY Diagnosis Date Abnormal Pap smear of cervix anxiety Calculus of gallbladder without biliary obstruction 08/10/2019 Cervical intraepithelial neoplasia grade 1 2016 COVID-19 virus infection 01/30/2020 Positive test 01/17/20 (symptoms started 01/15) Overall symptoms gradually improving and almost resolved today. Completed course of decadron for respiratory symptoms. Reassured patient that feels that her course of illness is near complete and happy that her symptoms seem to be resolved. No furtheraction at this time. Dyslipidemia (high LDL; low HDL) 06/05/2022 Elevated glucose 09/01/2019 Patient had elevated glucose on last BMP. BMI elevated, No FM history of diabetes. 08/2019: Hba1c 5.3 Elevated liver enzymes 2019 Noted hepatic steatosis on RUQ US in 2019 JORJE (generalized anxiety disorder) 11/25/2019 Likes current dose of zoloft. Continue. 11/25/2019 JORJE 7:11 PHQ 9: 4 Counseling referral placed. Interested in medications, will plan to start zoloft, titrate from 25 mg to 50 mg in next week. Will message in 4 weeks on symptoms. HISTORICAL prozac in past with minimal relief. Gastroesophageal reflux disease 11/03/2019 Symptoms of burning after eating, didn't seem to improve with Pepcid alone - Plan: begin PPI trial x4 weeks, recommended she return in 2-4 weeks or sooner if symptoms are not improving Hypertriglyceridemia 06/05/2022 Inverted nipple Migraine variant 01/07/2013 Seems to be more tension headache then migraine. ibuprofen prn has provided relief Historical: Patient tried amitriptyline which helped with headaches but made too fatigued Pure hypercholesterolemia 06/05/2022 Seasonal allergies flonase. Shingles outbreak PAST SURGICAL HISTORY Procedure Laterality Date CHOLECYSTECTOMY HX 08/2019 D&C, DIAG AND/OR THERAPEUTIC 2019 Missed ab ALLERGIES Imitrex [Sumatriptan] MEDICATIONS levothyroxine (SYNTHROID) 88 mcg tablet Take 1 tablet by mouth daily before breakfast. aspirin, enteric coated (ECOTRIN LOW STRENGTH) 81 mg EC tablet Take 1 tablet by mouth once daily. vit no.124/iron/folic ( VITAMIN ORAL) Take by mouth. cetirizine (ZYRTEC) 10 mg tablet Take 1 tablet by mouth once daily. fluticasone (FLONASE) 50 mcg/actuation nasal spray Use 2 Sprays in each nostril once daily. Rinse mouth after use. FAMILY HISTORY Problem Relation Age of Onset Anxiety disorder Mother No Known Problems Father Anxiety disorder Sister No Known Problems Sister No Known Problems Brother No Known Problems Brother Hypertension Maternal Grandmother Lipids Maternal Grandmother COPD Maternal Grandfather other (smoker) Maternal Grandfather Lung Cancer Paternal Grandmother Cancer Paternal Grandfather bone? Social History Tobacco Use Smoking status: Never Smokeless tobacco: Never Vaping Use Vaping status: Never Used Substance Use Topics Alcohol use: Not Currently Comment: social Drug use: No BP 105/72 Pulse 100 Temp 36.8 C (98.3 F) Resp 18 Wt 95 kg (209 lb 7 oz) LMP 10/16/2023 (Approximate) SpO2 98% BMI 35.32 kg/m Review of Systems Constitutional: Positive for chills and malaise/fatigue. Negative for fever. HENT: Positive for congestion and sore throat. Negative for ear discharge, ear pain and sinus pain. Eyes: Negative for blurred vision, pain, discharge and redness. Respiratory: Positive for cough. Negative for hemoptysis, sputum production, shortness of breath, wheezing and stridor. Cardiovascular: Negative for chest pain. Gastrointestinal: Negative for abdominal pain, diarrhea, nausea and vomiting. Musculoskeletal: Positive for myalgias. Skin: Negative for itching and rash. Neurological: Positive for headaches. Negative for dizziness. Objective Physical Exam Constitutional: General: She is not in acute distress. Appearance: She is not diaphoretic. HENT: Head: Normocephalic. Jaw: No trismus, tenderness, swelling or pain on movement. Right Ear: Tympanic membrane, ear canal and external ear normal. Left Ear: Tympanic membrane, ear canal and external ear normal. Nose: Congestion present. Mouth/Throat: Mouth: Mucous membranes are moist. Pharynx: Oropharynx is clear. Uvula midline. No pharyngeal swelling, oropharyngeal exudate, posterior oropharyngeal erythema or uvula swelling. Eyes: Conjunctiva/sclera: Conjunctivae normal. Pupils: Pupils are equal, round, and reactive to light. Cardiovascular: Rate and Rhythm: Normal rate and regular rhythm. Heart sounds: Normal heart sounds. Pulmonary: Effort: Pulmonary effort is normal. No tachypnea, accessory muscle usage or respiratory distress. Breath sounds: Normal breath sounds. No stridor. No wheezing, rhonchi or rales. Abdominal: General: There is no distension. Palpations: Abdomen is soft. Tenderness: There is no abdominal tenderness. There is no guarding or rebound. Musculoskeletal: Cervical back: Normal range of motion and neck supple. No edema, erythema, rigidity or tenderness. No pain with movement. Normal range of motion. Lymphadenopathy: Cervical: No cervical adenopathy. Skin: General: Skin is warm and dry. Neurological: Mental Status: She is alert and oriented to person, place, and time. ASSESSMENT/PLAN: 1. Viral illness - ICD9: 079.99, ICD10: B34.9 - COVID & INFLUENZA A/B & RSV PCR, ROUTINE No evidence of bacterial infection. Treat as viral etiology. If positive for COVID-19 within therapeutic window for treatment. Patient will reach out to DEBURRING AND TOOLING MACHINE OPERATOR to discuss if antiviral treatment is appropriate. Red flags ER evaluation discussed. Patient was educated on supportive therapies. Patient will follow up with primary care provider as needed. Patient was instructed to immediately proceed to emergency room for any new, worsening, or symptoms lasting longer than anticipated. The patient's clinical presentation is otherwise unremarkable at this time. Based on exam and clinical finding, the patient is stable for discharge. Plan of care was discussed with patient. Patient verbalizes unders tanding and agrees to plan of care. This note was generated using Airu software. It may contain errors in wording, punctuation, or spelling. Jose Brink APRN.JUAN M documented in this encounterUniversity Hospitals Cleveland Medical Center12-26-2024 Telephone encounter Note * Telephone Encounter - Zohra Cortés RN - 01/31/2024 10:39 AM EST Early anatomy US pending. Please file if appropriate and will call Pt to get scheduled. Zohra Cortés RN [facility]12-26-2024 Miscellaneous Notes* Telephone Encounter - Zohra Cortés RN - 01/31/2024 10:39 AM EST Early anatomy US pending. Please file if appropriate and will call Pt to get scheduled. Zohra Cortés RN * Telephone Encounter - Xenia Jamison - 01/31/2024 10:35 AM EST Pt asking to schedule her [address] order. Thank you documented in this encounterUniversity Hospitals Cleveland Medical Center12-26-2024 Telephone encounter Note * Telephone Encounter - Xenia Jamison - 01/31/2024 10:35 AM EST Pt asking to schedule her [address] order. Thank you [facility]12-26-2024 Progress note* Quick Notes - Elsa Chaudhary APRN.EDELMIRA - 01/31/2024 9:06 AM EST S: Richard Smith is a 28 year old female who presents at 12 weeks gestation for a routine visit. Just completed NT US - has already completed labs. Two vessel cord seen today. C/O vaginal itching since earlier this week. Some white, no odorous discharge present. Denies any dysuria, or vaginal bleeding. O: See flow sheet Gen: No apparent distress Abd: Gravid, nontender ASSESSMENT/PLAN: 1. Encounter for supervision of high risk in first trimester, antepartum - ICD9: V23.9, ICD10: O09.91 (primary diagnosis) 2. Obesity affecting in first trimester, unspecified obesity type - ICD9: 649.13, ICD10: O99.211 3. Vaginal itching - ICD9: 698.1, ICD10: N89.8 4. History of anxiety - ICD9: V11.8, ICD10: Z86.59 5. Thyroid disease - ICD9: 246.9, ICD10: E07.9 6. 12 weeks gestation of - ICD9: V22.2, ICD10: Z3A.12 - BACT/YEAST - collected and sent - Continue vitamin - Continue ASA - Continue Levothyroxine - Reviewed preliminary US finding of 2 vessel cord and questions answered - RTO 4 weeks or sooner if needed Elsa Chaudhary APRN.CNM [facility]12-26-2024 Miscellaneous Notes* Quick Notes - Elsa Chaudhary APRN.CNM - 01/31/2024 9:06 AM EST S: Richard Smith is a 28 year old female who presents at 12 weeks gestation for a routine visit. Just completed NT US - has already completed labs. Two vessel cord seen today. C/O vaginal itching since earlier this week. Some white, no odorous discharge present. Denies any dysuria, or vaginal bleeding. O: See flow sheet Gen: No apparent distress Abd: Gravid, nontender ASSESSMENT/PLAN: 1. Encounter for supervision of high risk in first trimester, antepartum - ICD9: V23.9, ICD10: O09.91 (primary diagnosis) 2. Obesity affecting in first trimester, unspecified obesity type - ICD9: 649.13, ICD10: O99.211 3. Vaginal itching - ICD9: 698.1, ICD10: N89.8 4. History of anxiety - ICD9: V11.8, ICD10: Z86.59 5. Thyroid disease - ICD9: 246.9, ICD10: E07.9 6. 12 weeks gestation of - ICD9: V22.2, ICD10: Z3A.12 - BACT/YEAST - collected and sent - Continue vitamin - Continue ASA - Continue Levothyroxine - Reviewed preliminary US finding of 2 vessel cord and questions answered - RTO 4 weeks or sooner if needed Elsa Chaudhary APRN.CNM documented in this encounterUniversity Hospitals Cleveland Medical Center12-26-2024 Instructions* Patient Instructions* Ankita Hawkins MA - 01/31/2024 8:30 AM EST SEQUENTIAL SCREENINGS The [facility] offers sequential screenings for women who are interested in screenings for chromosomal abnormalities and certain defects during a . The sequential screen combinesultrasound and blood tests to determine the risk of chromosomal abnormalities, including Down's Syndrome (Trisomy 21) and Trisomy 18, as well as open neural tube defects including spina bifida. Ultrasound examination is performed between 11 weeks and 13 weeks gestational age. Blood tests are drawn after the ultrasound and again later in the between 15 and 21 weeks gestational age. Please let your physician know if you are interested in this testing. It will require an appointment withour behavioral health technician. This is not an ultrasound performed by a physician in our office during a routine visit. SIGNS AND SYMPTOMS OF LABOR 1. Contractions every 10 minutes or more often 2. Clear, pink, or brownish fluid (water) leaking from vagina 3. Feeling that baby is pushing down, pressure 4. Low, dull backache 5. Cramps that feel like a period 6. Cramps with or without diarrhea If you notice any of the above symptoms, contact our office at [phone] and ask to speak with anurse. After hours, you can call doctors registry at [phone] OR call [facility] at [phone] ask to have the doctor economic consultant paged. If you consider this an emergency, dial [phone] or go to your nearest emergency department. NEED HELP? Are you dealing with a violent or abusive relationship? Are you a victim of rape or sexual assult? Call [facility] ([place]) 24 hour Crisis Hotline: 543.773.7149 or 280-535-5663. MANUAL Your Guide to a Healthy manual is now on-line. Visit [email or web address] to download your free copy documented in this encounterUniversity Hospitals Cleveland Medical Center12-20-2024 Telephone encounter Note * Telephone Encounter - Zohra Cortés RN - 01/25/2024 10:45 AM EST Called Pt. Pt denies dysuria. C/o vaginal itching. Had OB routine appt scheduled with CP on 01/31/24. Rescheduled to 01/28/24 with CP. Zohra Cortés RN [facility]12-20-2024 Miscellaneous Notes* Telephone Encounter - Zohra Cortés RN - 01/25/2024 10:45 AM EST Called Pt. Pt denies dysuria. C/o vaginal itching. Had OB routine appt scheduled with CP on 01/31/24. Rescheduled to 01/28/24 with CP. Zohra Cortés RN documented in this encounterUniversity Hospitals Cleveland Medical Center11-24-2024 NoteHNO ID: [id number] Author: KAITLYN BLANK MD Service: ? 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 Encounter Diagnosis ICD-10-CM 1. Encounter for supervision of high risk in first trimester, antepartum O09.91 2. with uncertain dates in first trimester Z34.91 Please see report under imaging tab. Kaitlyn Blank MD December 30, 2023 10:47 PMCUniversity Hospitals Ahuja [facility] Center11-24-2024 History of Present illness Narrative* Kaitlyn Blank MD - 12/30/2023 10:47 PM EST Richard Smith is a 28 year old female who presented for financial foundations representative ultrasound today. Encounter Diagnosis ICD-10-CM 1. Encounter for supervision of high risk in first trimester, antepartum O09.91 2. with uncertain dates in first trimester Z34.91 Please see report under imaging tab. Kaitlyn Blank MD December 30, 2023 10:47 PM documented in this encounterUniversity Hospitals Cleveland Medical Center11-22-2024 Progress note* Quick Notes - Susana Castillo MD - 12/28/2023 10:24 AM EST SW- Some spotting a few days ago and went to ER. No bleeding since. No pain or cramping. PE: Gen- NAD, well appearing Abd- ND, obese See flowsheet A/p 8 wk gestation - Thyroid disease: Recently started on medication. Repeat TSH ordered to be completed 4 weeks from start of medication, and prior to follow up with endo - Plans aneuploidy screening - NT and anatomy US ordered - EDC changed based on ultrasound today - RTO 4 wks Susana Castillo DO [facility]11-22-2024 Miscellaneous Notes* Quick Notes - Susana Castillo MD - 12/28/2023 10:24 AM EST SW- Some spotting a few days ago and went to ER. No bleeding since. No pain or cramping. PE: Gen- NAD, well appearing Abd- ND, obese See flowsheet A/p 8 wk gestation - Thyroid disease: Recently started on medication. Repeat TSH ordered to be completed 4 weeks from start of medication, and prior to follow up with endo - Plans aneuploidy screening - NT and anatomy US ordered - EDC changed based on ultrasound today - RTO 4 wks Susana Castillo DO documented in this encounterUniversity Hospitals Cleveland Medical Center11-22-2024 Instructions* Patient Instructions* Rachael Alexandre MA - 12/28/2023 10:10 AM EST SEQUENTIAL SCREENINGS The [facility] offers sequential screenings for women who are interested in screenings for chromosomal abnormalities and certain defects during a . The sequential screen combinesultrasound and blood tests to determine the risk of chromosomal abnormalities, including Down's Syndrome (Trisomy 21) and Trisomy 18, as well as open neural tube defects including spina bifida. Ultrasound examination is performed between 11 weeks and 13 weeks gestational age. Blood tests are drawn after the ultrasound and again later in the between 15 and 21 weeks gestational age. Please let your physician know if you are interested in this testing. It will require an appointment withour behavioral health technician. This is not an ultrasound performed by a physician in our office during a routine visit. SIGNS AND SYMPTOMS OF LABOR 1. Contractions every 10 minutes or more often 2. Clear, pink, or brownish fluid (water) leaking from vagina 3. Feeling that baby is pushing down, pressure 4. Low, dull backache 5. Cramps that feel like a period 6. Cramps with or without diarrhea If you notice any of the above symptoms, contact our office at [phone] and ask to speak with anurse. After hours, you can call doctors registry at [phone] OR call [facility] at [phone] ask to have the doctor economic consultant paged. If you consider this an emergency, dial 91-0 or go to your nearest emergency department. NEED HELP? Are you dealing with a violent or abusive relationship? Are you a victim of rape or sexual assult? Call [facility] ([facility] 24 hour Crisis Hotline: 226.995.1343 or 570-874-4140. MANUAL Your Guide to a Healthy manual is now on-line. Visit [email or web address] to download your free copy documented in this encounterUniversity Hospitals Cleveland Medical Center11-18-2024 Telephone encounter Note * Telephone Encounter - Juana Traylor RN - 12/24/2023 12:10 PM EST 9w6d ER records are available in care everywhere. Has u/s and OB visit with on 12/28/23 next. Juana Traylor RN [facility]11-18-2024 Miscellaneous Notes* Telephone Encounter - Juana Traylor RN - 12/24/2023 12:10 PM EST 9w6d ER records are available in care everywhere. Has u/s and OB visit with on 12/28/23 next. Juana Traylor RN documented in this encounterUniversity [facility] Emergency department Note * Segundo Lopez DO - 12/24/2023 9:12 AM EST HPI Chief Complaint Patient presents with Vaginal Bleeding 6 weeks , brown spotting this am x1 on toilet paper only. + abdominal/back pain, LMP 10/16/23 G3 P 1 AB 1. OBGYN [facility] [place] Patient presents to the emergency department secondary to pelvic cramping and vaginal spotting. States this began this morning. Upon further history she is believed to be 7 weeks . She has had an initial visit where vitamins were prescribed but she has not had any sort of testing such as laboratory panels or an ultrasound. She is a 3 para 1 including this with 1 prior miscarriage and 1 living child. History provided by: Patient certified prosthetist used: No Patient History History reviewed. No pertinent past medical history. History reviewed. No pertinent surgical history. No family history on file. Social History Tobacco Use Smoking status: Never Smokeless tobacco: Never Substance Use Topics Alcohol use: Not Currently Drug use: Never Physical Exam ED Triage Vitals Temperature Heart Rate Respirations BP 11/18/92012/24/2392012/24/2392012/24/23922 36.4 C (97.5 F) 91 18 117/73 Pulse Ox Temp Source Heart Rate Source Patient Position 12/24/2392012/24/23920 -- -- 98 % Oral BP Location FiO2 (%) -- -- Physical Exam Vitals and nursing note reviewed. Constitutional: General: She is not in acute distress. Appearance: Normal appearance. She is normal weight. She is not ill-appearing, toxic-appearing or diaphoretic. HENT: Head: Normocephalic and atraumatic. Nose: Nose normal. No rhinorrhea. Neck: Comments: Trachea is midline Cardiovascular: Rate and Rhythm: Normal rate and regular rhythm. Heart sounds: No murmur heard. Pulmonary: Effort: Pulmonary effort is normal. Breath sounds: Normal breath sounds. No wheezing. Abdominal: General: Abdomen is flat. Bowel sounds are normal. There is no distension. Palpations: Abdomen is soft. Tenderness: There is no abdominal tenderness. Genitourinary: Comments: Pelvic examination was performed with the patient's female nurse Yumiko in the room at all times as well as the patient's significant other. External genitalia is unremarkable. Speculum examination reveals no active bleeding, no old blood, no evidence of clots and the patient cervical os is closed. No discharge noted. Musculoskeletal: General: Normal range of motion. Cervical back: Normal range of motion. Skin: General: Skin is warm and dry. Findings: No rash. Neurological: General: No focal deficit present. Mental Status: She is alert and oriented to person, place, and time. Mental status is at baseline. Psychiatric: Mood and Affect: Mood normal. Behavior: Behavior normal. Thought Content: Thought content normal. Judgment: Judgment normal. ED Course & MDM No data recorded Lisset Coma Scale Score: 15 (12/24/23917 : Licha Acosta RN) Medical Decision Making Differential considerations would include, but not limited to, threatened , dysfunctional uterine bleeding, amongst others. Patient's ultrasound is reassuring and she is not anemic. There is no active bleeding on her examination therefore I feel she is appropriate for discharge. Continue vitamins and follow-up with her OB physician in [place] this week. She states she has a scheduled appointment for Sunday and I instructed the patient to call their office today to inform them of her current symptoms and to see about possibly scheduling a sooner appointment for a repeat serum quant. Recommended pelvic rest until cleared by her OB physician. Limit activity as tolerated and return if worse. Procedure Procedures Segundo Lopez DO 12/24/23 1202 documented in this [facility] Work Phone: 1(369) 949-646311-18-2024 Physician Emergency department Note* Segundo Lopez DO - 12/24/2023 9:12 AM EST HPI Chief Complaint Patient presents with Vaginal Bleeding 6 weeks , brown spotting this am x1 on toilet paper only. + abdominal/back pain, LMP 10/16/23 G3 P 1 AB 1. OBGYN [facility] [place] Patient presents to the emergency department secondary to pelvic cramping and vaginal spotting. States this began this morning. Upon further history she is believed to be 7 weeks . She has had an initial visit where vitamins were prescribed but she has not had any sort of testing such as laboratory panels or an ultrasound. She is a 3 para 1 including this with 1 prior miscarriage and 1 living child. History provided by: Patient certified prosthetist used: No Patient History History reviewed. No pertinent past medical history. History reviewed. No pertinent surgical history. No family history on file. Social History Tobacco Use Smoking status: Never Smokeless tobacco: Never Substance Use Topics Alcohol use: Not Currently Drug use: Never Physical Exam ED Triage Vitals Temperature Heart Rate Respirations BP 12/24/2392012/24/2392012/24/2392012/24/23922 36.4 C (97.5 F) 91 18 117/73 Pulse Ox Temp Source Heart Rate Source Patient Position 12/24/2392012/24/23920 -- -- 98 % Oral BP Location FiO2 (%) -- -- Physical Exam Vitals and nursing note reviewed. Constitutional: General: She is not in acute distress. Appearance: Normal appearance. She is normal weight. She is not ill-appearing, toxic-appearing or diaphoretic. HENT: Head: Normocephalic and atraumatic. Nose: Nose normal. No rhinorrhea. Neck: Comments: Trachea is midline Cardiovascular: Rate and Rhythm: Normal rate and regular rhythm. Heart sounds: No murmur heard. Pulmonary: Effort: Pulmonary effort is normal. Breath sounds: Normal breath sounds. No wheezing. Abdominal: General: Abdomen is flat. Bowel sounds are normal. There is no distension. Palpations: Abdomen is soft. Tenderness: There is no abdominal tenderness. Genitourinary: Comments: Pelvic examination was performed with the patient's female nurse Yumiko in the room at all times as well as the patient's significant other. External genitalia is unremarkable. Speculum examination reveals no active bleeding, no old blood, no evidence of clots and the patient cervical os is closed. No discharge noted. Musculoskeletal: General: Normal range of motion. Cervical back: Normal range of motion. Skin: General: Skin is warm and dry. Findings: No rash. Neurological: General: No focal deficit present. Mental Status: She is alert and oriented to person, place, and time. Mental status is at baseline. Psychiatric: Mood and Affect: Mood normal. Behavior: Behavior normal. Thought Content: Thought content normal. Judgment: Judgment normal. ED Course & MDM No data recorded Circle Coma Scale Score: 15 (12/24/23 0918 : Licha Acosta, HAYDEN) Medical Decision Making Differential considerations would include, but not limited to, threatened , dysfunctional uterine bleeding, amongst others. Patient's ultrasound is reassuring and she is not anemic. There is no active bleeding on her examination therefore I feel she is appropriate for discharge. Continue vitamins and follow-up with her OB physician in [place] this week. She states she has a scheduled appointment for Sunday and I instructed the patient to call their office today to inform them of her current symptoms and to see about possibly scheduling a sooner appointment for a repeat serum quant. Recommended pelvic rest until cleared by her OB physician. Limit activity as tolerated and return if worse. Procedure Procedures Segundo Lopez DO 12/24/23 1207 [facility] Work Phone: 1(813) 110-437511-08-2024 Telephone encounter Note* Telephone Encounter - Mariana Hilario APRN.CNM - 12/14/2023 10:06 AM EST Mammogram ordered, patient is . Mariana Hilario APRN.CNM [facility]11-08-[facility]24 Miscellaneous Notes* Telephone Encounter - Mariana Hilario APRN.CNM - 12/14/2023 10:06 AM EST Mammogram ordered, patient is . Mariana Hilario APRN.CNM * Telephone Encounter - Madalyn Copeland RDMS - 12/12/2023 7:35 AM EST May we please have Bilateral Diagnostic Mammogram orders placed per [facility] Breast imaging protocol. Only to be used at the discretion of the radiologist. Thank you very much! Madalyn Copeland documented in this encounterUniversity [facility]als [facility]11-06-2024 Telephone encounter Note * Telephone Encounter - Jenise Walker RN - 12/12/2023 3:46 PM EST hCG Quantitative, Blood Date Value 12/12/2023 2,128.0 mIU/mL 12/10/2023 1,021.0 mIU/mL Provider notified patient in a Rayn[employer]t message. Jenise Walker RN [facility]11-06-2024 Miscellaneous Notes* Telephone Encounter - Jenise Walker RN - 12/12/2023 3:46 PM EST hCG Quantitative, Blood Date Value 12/12/2023 2,128.0 mIU/mL 12/10/2023 1,021.0 mIU/mL Provider notified patient in a Mychart message. Jenise Walker RN * Telephone Encounter - Jenise Walker RN - 12/10/2023 2:01 PM EST hCG Quantitative, Blood Date Value 12/10/2023 1,021.0 mIU/mL Leave phone note open for 12/11 HCG. * Telephone Encounter - Elkin Martinez APRN.CNP - 12/10/2023 8:59 AM EST Can have T4 drawn with [place] appt today if they can't add it on Elkin Martinez APRN.CNP * Telephone Encounter - Jenise Walker RN - 12/10/2023 8:52 AM EST Spoke with lab client services. Having an issue with computer. Will call the office back on the direct line if patient needs a new sample. Patient notified. Inquired about her HCG level from 12/06. Not drawn. Patient has a lab appointment in [place] today at 10:00 AM (which was supposed to be her second quant). Patient is anxious about having a possible missed AB. Advised that we should have that result today. Transferred to schedule with germaine. Jenise Walker RN * Telephone Encounter - Elkin Martinez APRN.CNP - 12/10/2023 7:18 AM EST Please notify patient: TSH elevated, indicating thyroid problem. T4 ordered - please see if lab can add on. If not, pleaseask patient to have done. Endocrinology consult placed. Please assist in scheduling. Elkin Martinez APRN.CNP documented in this encounterUniversity [facility]11-06-2024 Telephone encounter Note * Telephone Encounter - Madalyn Copeland RDMS - 12/12/2023 7:35 AM EST May we please have Bilateral Diagnostic Mammogram orders placed per [facility] Breast imaging protocol. Only to be used at the discretion of the radiologist. Thank you very much! Madalyn Copeland [facility]11-05-2024 Telephone encounter Note* Telephone Encounter - Rojelio Alcantar RN - 12/11/2023 10:12 AM EST 1st risk assessment form submitted 12/11/23 [facility]11-05-2024 Miscellaneous Notes* Telephone Encounter - Rojelio Alcantar RN - 12/11/2023 10:12 AM EST 1st risk assessment form submitted 12/11/23 documented in this encounterUniversity [facility]11-04-2024 Telephone encounter Note * Telephone Encounter - Jenise Walker RN - 12/10/2023 2:01 PM EST hCG Quantitative, Blood Date Value 12/10/2023 1,021.0 mIU/mL Leave phone note open for 12/11 HCG. [facility]11-04-2024 Telephone encounter Note* Telephone Encounter - Elkin Martinez APRN.CNP - 12/10/2023 8:59 AM EST Can have T4 drawn with [place] appt today if they can't add it on Elkin Martinez APRN.[employer] [facility]11-04-2024 Telephone encounter Note* Telephone Encounter - Jenise Walker RN - 12/10/2023 8:52 AM EST Spoke with lab client services. Having an issue with computer. Will call the office back on the direct line if patient needs a new sample. Patient notified. Inquired about her HCG level from 12/06. Not drawn. Patient has a lab appointment in [place] today at 10:00 AM (which was supposed to be her second quant). Patient is anxious about having a possible missed AB. Advised that we should have that result today. Transferred to schedule with endo. Jenise Walker, RN [facility]11-04-2024 Telephone encounter Note* Telephone Encounter - Elkin Martinez APRN.CNP - 12/10/2023 7:18 AM EST Please notify patient: TSH elevated, indicating thyroid problem. T4 ordered - please see if lab can add on. If not, pleaseask patient to have done. Endocrinology consult placed. Please assist in scheduling. Elkin Martinez APRN.CNP [facility]11-01-2024 Instructions* Patient Instructions* Reny Joe MA - 12/07/2023 10:45 AM EDT Please select the following link to access the [facility] Your Guide to a Healthy . [email or web address] documented in this encounterUniversity Hospitals [facility] Center10-29-2024 NoteHNO ID: [id number] Author: ELKIN MARTINEZ APRN.CNP Service: ? Author Type: Nurse Practitioner Type: Progress Notes Filed: 12/07/2023 12:01 Note Text: Taxi Servicer offered: Patient declines. INITIAL OB ASSESSMENT HPI: Richard is a 28 year old White here to establish Obstetrical Care. Patient's last menstrual period was 10/16/2023 (approximate). from OB Dating Form. was unplanned but accepted Complaints: No OB History T1 L1 SAB1 IAB0 Ectopic0 Multiple0 Live Births1 # 1 - Date: 05/16/17, Sex: Male, Weight: 3.43 kg (7 lb 9 oz), GA: 40w0d, Type: Vaginal, Spontaneous, Apgar1: None, Apgar5: None, Living: Living, Comments: Induced due to preecalmpsia # 2 - Date: 2018, Sex: None, Weight: None, GA: 7w0d, Type: MISSED AB, Apgar1: None, Apgar5: None, Living: None, Comments: None # 3 - Date: None, Sex: None, Weight: None, GA: None, Type: None, Apgar1: None, Apgar5: None, Living: None, Comments: None Previous history: Prior : No History of 4th degree laceration: no History of shoulder dystocia: No History of Hypertensive disorders including pre-eclampsia or gestational hypertension: Hx of Pre-Eclampsia History of gestational diabetes: no Patient's Risk Screening for delivery: Have you had a prior estrada between 20w and 36w6d? No How many pregnancies have you had before? 1 Did you have a previous baby with a GBS Infection? No Please select all that apply for any prior : N/A MEDICAL/PSYCHOSOCIAL HISTORY: Severe Bleeding with delivery: No Thyroid Disease: no Gestational Hypertension: no Diabetes in : no ABO/RH(D) Date Value Ref Range Status 08/13/2019 A POSITIVE Final BMI 33.05 kg/(m2) Last Pap: 11/29/2023 History of abnormal pap: Yes Prior treatment for cervical dysplasia: none. Last HPV: 11/29/2023 History of STDs: HPV Partner History of STDs: None Did you have a partner with Herpes? No Tobacco use: No E-Cigarette/Vaping Use: No Caffeine use: Yes drinks 1 glass of soda a day Drug use: No Alcohol use: No Multivitamin with Folic acid: No Would refuse blood transfusion if medically necessary: No Social Needs: How often does this describe you? I don't have enough money to pay my bills: Never Within the past 12 months, have you worried that your food would run out before you had money to buy more? Never In the past 12 months, has lack of reliable transportation kept you from going to medical appointments or work, or from getting things needed for daily living? Never In the past 12 months, have you had any concerns about having a place to live, or about the condition or quality of your housing? Never Would you like more information on any of the following (please check all that apply)? Not interested Social History: Do you have any history of depression, anxiety, PTSD, or other mood problems? Yes Do you have a history of abuse or trauma that may impact your experience? No Are you currently employed? Yes Depression/Anxiety Screening: denies symptoms of depression. OB Depression and Anxiety Screening- This Encounter (since 12/06/2023) Over the past 2 weeks have you felt down, depressed, or hopeless? Negative Over the past two weeks, have you felt little interest or pleasure in doing things?? Negative Feeling nervous, anxious or on edge 0-Not at all Not being able to stop or control worrying 0-Not al all Anxiety Pre-Screening Total (If >/= 3 additional questions will be reviewed) 0 Genetic Screening: Partner present: No Patient verbalized knowledge of partner family health history: Yes Do you or your partner have any personal or family history of defects not previously discussed: No Do you have history of a complicated by anomaly, genetic condition, or demise: No Low Dose ASA Screening: Screening for low dose aspirin use for the prevention of pre-eclampsia: High risk factors: History of pre-eclampsia, especially when accompanied by an adverse outcome Moderate risk ractors: Obesity (body mass index greater than 30) OB Risk Screening: Completed, no positive findings documented. 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 BMI elevated, No FM history of diabetes. 08/2019: Hba1c 5.3 Elevated liver enzymes 2019 Noted hepatic steatosis on RUQ US in 2019 Inverted nipple Seasonal allergies flonase. Shingles outbreak PAST SURGICAL HISTORY Procedure Laterality Date CHOLECYSTECTOMY HX 08/2019 DANDC, DIAG AND/OR THERAPEUTIC 2019 Missed ab Current (more content not included)...[facility]10-29-2024 History of Present illness Narrative* Elkin Martinez, ZANE.[employer] MAKER - 12/04/2023 9:58 AM EDT Taxi Servicer offered: Patient declines. INITIAL OB ASSESSMENT HPI: Richard is a 28 year old White here to establish Obstetrical Care. Patient's last menstrual period was 10/16/2023 (approximate). from OB Dating Form. was unplanned but accepted Complaints: No OB History T1 L1 SAB1 IAB0 Ectopic0 Multiple0 Live Births1 # 1 - Date: 05/16/17, Sex: Male, Weight: 3.43 kg (7 lb 9 oz), GA: 40w0d, Type: Vaginal, Spontaneous, Apgar1: None, Apgar5: None, Living: Living, Comments: Induced due to preecalmpsia # 2 - Date: 2018, Sex: None, Weight: None, GA: 7w0d, Type: MISSED AB, Apgar1: None, Apgar5: None, Living: None, Comments: None # 3 - Date: None, Sex: None, Weight: None, GA: None, Type: None, Apgar1: None, Apgar5: None, Living: None, Comments: None Previous history: Prior : No History of 4th degree laceration: no History of shoulder dystocia: No History of Hypertensive disorders including pre-eclampsia or gestational hypertension: Hx of Pre-Eclampsia History of gestational diabetes: no Patient's Risk Screening for delivery: Have you had a prior estrada between 20w and 36w6d? No How many pregnancies have you had before? 1 Did you have a previous baby with a GBS Infection? No Please select all that apply for any prior : N/A MEDICAL/PSYCHOSOCIAL HISTORY: Severe Bleeding with delivery: No Thyroid Disease: no Gestational Hypertension: no Diabetes in : no ABO/RH(D) Date Value Ref Range Status 08/13/2019 A POSITIVE Final BMI 33.05 kg/(m^2) Last Pap: 11/29/2023 History of abnormal pap: Yes Prior treatment for cervical dysplasia: none. Last HPV: 11/29/2023 History of STDs: HPV Partner History of STDs: None Did you have a partner with Herpes? No Tobacco use: No E-Cigarette/Vaping Use: No Caffeine use: Yes drinks 1 glass of soda a day Drug use: No Alcohol use: No Multivitamin with Folic acid: No Would refuse blood transfusion if medically necessary: No Social Needs: How often does this describe you? I don't have enough money to pay my bills: Never Within the past 12 months, have you worried that your food would run out before you had money to buy more? Never In the past 12 months, has lack of reliable transportation kept you from going to medical appointments or work, or from getting things needed for daily living? Never In the past 12 months, have you had any concerns about having a place to live, or about the condition or quality of your housing? Never Would you like more information on any of the following (please check all that apply)? Not interested Social History: Do you have any history of depression, anxiety, PTSD, or other mood problems? Yes Do you have a history of abuse or trauma that may impact your experience? No Are you currently employed? Yes Depression/Anxiety Screening: denies symptoms of depression. OB Depression and Anxiety Screening- This Encounter (since 12/06/2023) Over the past 2 weeks have you felt down, depressed, or hopeless? Negative Over the past two weeks, have you felt little interest or pleasure in doing things? Negative Feeling nervous, anxious or on edge 0-Not at all Not being able to stop or control worrying 0-Not al all Anxiety Pre-Screening Total (If >/= 3 additional questions will be reviewed) 0 Genetic Screening: Partner present: No Patient verbalized knowledge of partner family health history: Yes Do you or your partner have any personal or family history of defects not previously discussed: No Do you have history of a complicated by anomaly, genetic condition, or demise: No Low Dose ASA Screening: Screening for low dose aspirin use for the prevention of pre-eclampsia: High risk factors: History of pre-eclampsia, especially when accompanied by an adverse outcome Moderate risk ractors: Obesity (body mass index greater than 30) OB Risk Screening: Completed, no positive findings documented. 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 BMI elevated, No FM history of diabetes. 08/2019: Hba1c 5.3 Elevated liver enzymes 2019 Noted hepatic steatosis on RUQ US in 2019 Inverted nipple Seasonal allergies flonase. Shingles outbreak PAST SURGICAL HISTORY Procedure Laterality Date CHOLECYSTECTOMY HX 08/2019 D&C, DIAG AND/OR THERAPEUTIC 2019 Missed ab Current Outpatient Medications Medication Sig Dispense Refill vit no.124/iron/folic ( VITAMIN ORAL) Take by mouth. cetirizine (ZYRTEC) 10 mg tablet Take 1 tablet by mouth once daily. 30 tablet 0 fluticasone (FLONASE) 50 mcg/actuation nasal spray Use 2 Sprays in each nostril once daily. Rinse mouth after use. 1 Bottle 0 Drospirenone-Ethinyl Estradiol (LESLIE 28) 3-0.02 mg per tablet Take 1 tablet by mouth once daily for 28 days. (Patient not taking: Reported on 12/04/2023) 28 tablet 11 No current facility-administered medications for this visit. Allergies As of Date: 12/07/2023 Allergen Noted Reaction IMITREX [SUMATRIPTAN] 11/16/2010 Other: See Comments Fully Assessed 12/07/2023 Does patient have penicillin allergy: No REVIEW OF SYSTEMS: GENERAL: Negative for: Fever or Chills HEENT: Negative for: Headache, Impaired Vision, Ringing in Ears, Nosebleeds NECK: Negative for: Swelling, Pain, Stiffness RESPIRATORY: Negative for: Cough, Shortness of breath, Wheezing GASTROINTESTINAL: Negative for: Heartburn, Constipation, Diarrhea, Blood in stool, Vomiting MUSCULOSKELETAL: Negative for: Muscle or joint pain, stiffness, Joint swelling NEUROLOGIC/PSYCHIATRIC: Negative for: Weakness, Paralysis, Numbness, Tingling, Tremor, Anxiety, Depression, Memory loss SKIN: Negative for: Rash, Itching GENITOURINARY: Negative for: vaginal itching, vaginal discharge, hematuria or dysuria SENSITIVE EXAM: The sensitive examination was discussed with the Patient or Patient's Authorized Professional Model. As applicable, any other physician, advance practice provider, medical student, or other health professional student that will be observing or involved in the sensitive examination for educational or training purposes was discussed with the Patient or Authorized Professional Model. The Patient or Authorized Professional Model has agreed to proceed with the sensitive examination. (Sensitive examination includes inspection and/or palpation of the breasts, pelvis, prostate and anorectal regions). PHYSICAL EXAM: BP 118/68 Ht 5' 4.567 (1.64m) Wt 196 lb (88.9kg) LMP 10/16/2023 BMI 33.06 kg/(m^2). GENERAL: pleasant in no apparent distress DERMATOLOGY: Normal, without lesions, non-icteric, and non-hirsute NECK: Supple, full range of motion, no adenopathy, and thyroid normal CHEST: Normal inspiratory effort BREAST: soft, non-tender, symmetric, no dominant mass, + nipples inverted bilaterally, no lymphadenopathy, and no nipple discharge ABDOMEN: soft, non-tender, and no masses NEURO: alert and oriented x3,exam grossly non-focal PELVIS: External genitalia normal without lesions. Perineal body intact. No vaginal or cervical lesions. Cervix closed. Uterus <8 week size. No adnexal masses or tenderness. Clinical Pelvimetry: Pelvimetry clinically assessed as adequate Limited OB ultrasound exam: gestational sac not visualized ASSESSMENT: 28 year old at 7w3d wks gestational age PLAN: 1) Patient oriented to practice. Patient given new OB orientation folder. Discussed nutrition, folic acid supplementation, dietary guidelines, exercise, smoking, alcohol, caffeine, and drug use. Discussed gestational weight gain guidelines. Discussed routine OB labs including STD/HIV. Discussed how to access Your guide to a health and the Semiconductor Wafers Tester. Discussed hemoglobin electrophoresis. Patient: Declines 2) Screening: Hemoglobin A1C: ordered Baby Aspirin: The patient has been counseled about the potential benefits of low dose aspirin in and our recommendation that this be offered to all patients, regardless of whether they meet the high risk criteria specified above. She Accepts Aneuploidy Screening: Discussed aneuploidy screening, nuchal translucency/first trimester early anatomy ultrasound and NIPT. The risks/benefits and limitations of NIPT/aneuploidy screening were reviewed including the potential for false negative and false positive results. The availability of genetic counseling was reviewed. Information on aneuploidy screening was provided. The patient chooses toproceed with First trimester early anatomy ultrasound (12-13w6d) and NIPT (10 weeks) Myriad Carrier Screening: Discussed myriad carrier screening. We discussed the availability of professional-society guided carrier screening and reviewed the conditions screened and limitations of screening. The availability of genetic counseling was reviewed. Information on carrier screening was provided. The patient Accepts 3) Patient offered option of Virtual Visits. Patient unsure. May consider in future. ACTIVE PROBLEM LIST Encounter for Supervision of High Risk in First Trimester, Antepartum - 12/07/2023 Comment: Care Checklist Vaccines: [x] Flu vaccine 12/06 [] declined [] RSV vaccine 32 0/7 - 36 6/7 (Oct - Mar) [] declined [] COVID vaccine [] declined [] TDaP 27-36 [] declined First trimester: [] Dating US [x] 1st tri labs [x] Pap smear [x] Carrier screening [] declined [x] NIPT screening [] declined [] First trimester anatomy scan [] declined [] universal ASA ordered (start 12w-16w) [] declined [] M Power Consult [] not indicated [] declined Second trimester: [] AFP [] declined [] Anatomy scan [] Mode of Delivery - [] Feeding - [] Pump ordered [] Diabetes screen [] CBC, RPR Third trimester (28-30 weeks): [] Consent [] Contraception - [] Weaving Loom Operator Third trimester (36-40 weeks): [] GBS [] Presentation - [] Scheduled [] yes - Hibiclens, pre-op instructions, CBC, T&S ordered [] no [] H&P With Uncertain Dates in First Trimester - 12/07/2023 Comment: December 07, 2023 States positive test last week, one negative prior. Quants ordered, ectopic precautions reviewed. GS not visualized on ultrasound. Dr. Eugenia Craft also to scan and did not see GS. Likely early gestation. Elkin Martinez APRN.CROSSBOW MAKER History of Pre-Eclampsia - 05/16/2017 Comment: 2018 induction due to pre eclampsia at [place]. Baseline labs ordered. Elkin Martinez APRN.CROSSBOW MAKER Family History of Congenital Anomaly - 12/07/2023 Comment: December 07, 2023 FOB born with gastroschisis Elkin Martinez APRN.CROSSBOW MAKER History of Anxiety - 12/07/2023 Comment: December 07, 2023 Has been off Prozac for 6 years and reports doing well. Mental health resources provided. To update throughout Elkin Martinez APRN.CROSSBOW MAKER Obesity Affecting in First Trimester - 12/07/2023 Comment: Pre BMI 32 Inverted Nipple - 12/07/2023 Comment: December 07, 2023 Bilateral. Has upcoming ultrasound 12/18/23 Elkin Martinez APRN.CNP History of Miscarriage - 12/07/2023 Comment: 2019 at 7 weeks. Elkin Martinez APRN.CNP Pcos (Polycystic Ovarian Syndrome) - 12/07/2023 Follow up in 2 weeks for formal dating and OB visit. Serial quants. Elkin Martinez APRN.JUAN M documented in this encounterUniversity [facility] Telephone encounter Note * Telephone Encounter - Jenise Walker RN - 12/04/2023 9:08 AM EDT Patient available at 10:30 today. Jenise Walker RN [facility] Miscellaneous Notes* Telephone Encounter - Jenise Walker RN - 12/04/2023 9:08 AM EDT Patient available at 10:30 today. Jenise Walker RN * Telephone Encounter - Rita David RN - 12/04/2023 9:02 AM EDT Left message for patient to return phone call to complete nurse intake questions for her upcoming appointment. Patient has an appointment with Elkin Martinez for NOB appointment on . Please transfer to or Iman documented in this encounterUniversity [facility]als [facility]10-29-2024 Telephone encounter Note * Telephone Encounter - Rita Davdi RN - 12/04/2023 9:02 AM EDT Left message for patient to return phone call to complete nurse intake questions for her upcoming appointment. Patient has an appointment with Elkin Martinez for NOB appointment on . Please transfer to id or Iman [facility]10-[facility]24 NoteHNO ID: [id number] Author: MARIANA HILARIO APRN.CNM Service: ? Author Type: Casual Shoe Inspector Type: Progress Notes Filed: 11/23/2023 12:05 Note Text: Taxi Servicer offered: Patient declines. Richard is a 28 year old who presents for an annual gynecologic exam without complaints. Menses: cycles every 28 days and 5 days of flow. Contraception: combined hormonal contraceptives. Denies warning signs ACHES. Migraine but without aura. HPV vaccine: Yes Last Pap: 12/20/2020 normal HPV: N/A History of abnormal pap: No Last mammogram: never Sexually active: Yes Pain with intercourse: No Postcoital bleeding: No OB History T1 L1 SAB0 IAB0 Ectopic0 Multiple0 Live Births1 Dye Tub Tender History LMP: 10/18/2023 (Approximate), Having periods Age at Menarche: Age at First : Age at Menopause: Dye Tub Tender History Comments: Sexual Activity: Yes; Male; Male present Contraception: Pill PAST MEDICAL HISTORY Diagnosis Date Anxiety Calculus of gallbladder without biliary obstruction 08/10/2019 Cervical intraepithelial neoplasia grade 1 2016 Elevated glucose 09/01/2019 Patient had elevated glucose on last BMP. BMI elevated, No FM history of diabetes. 08/2019: Hba1c 5.3 Seasonal allergies flonase. Shingles outbreak PAST SURGICAL HISTORY Procedure Laterality Date CHOLECYSTECTOMY HX 08/2019 NONE 05/2010 FAMILY HISTORY Problem Relation Age of Onset COPD Maternal Grandfather other (smoker) Maternal Grandfather Hypertension Maternal Grandmother Lipids Maternal Grandmother Anxiety disorder Mother Cancer Paternal Grandfather bone? Anxiety disorder Sister SOCIAL HISTORY Social History Tobacco Use Smoking status: Never Smokeless tobacco: Never Vaping Use Vaping status: Never Used Substance Use Topics Alcohol use: Not Currently Comment: social Drug use: No REVIEW OF SYSTEMS Abdomen: No abdominal pain, nausea, vomiting, diarrhea, or constipation. No bloating, early satiety, indigestion, or increased flatulence. Bladder: No dysuria, gross hematuria, urinary frequency, urinary urgency, or incontinence. Breast: No breast lumps, nipple d/c, overlying skin changes, redness or skin retraction. Allergies and current medication updated:Yes SENSITIVE EXAM: The sensitive examination was discussed with the Patient or Patient's Authorized Professional Model. As applicable, any other physician, advance practice provider, medical student, or other health professional student that will be observing or involved in the sensitive examination for educational or training purposes was discussed with the Patient or Authorized Professional Model. The Patient or Authorized Professional Model has agreed to proceed with the sensitive examination. (Sensitive examination includes inspection and/or palpation of the breasts, pelvis, prostate and anorectal regions). EXAM: BP 114/76 Wt 193 lb (87.5kg) LMP 10/18/2023 GENERAL: pleasant, female in no apparent distress HEENT: Normocephalic, atraumatic, mucus membranes moist, and no lesions NECK: Supple, full range of motion, no adenopathy, and thyroid normal DERMATOLOGY: Normal, without lesions, non-icteric, and non-hirsute BREAST: soft, non-tender, symmetric, no dominant mass, no lymphadenopathy, no nipple discharge. Bilateral nipples inverted. Patient states this is new and have never been this way. CHEST: Normal inspiratory effort ABDOMEN: soft, non-tender, and no masses PELVIC: external genitalia normal, normal Bartholin's glands, urethra, Buford's glands, no vulvar lesions, no cervical lesions, good vaginal support, physiologic discharge present, normal appearing perineal body and perianal region BIMANUAL: uterus normal size, shape and consistency, no adnexal masses, and non-tender RECTOVAGINAL: deferred. NEURO: alert and oriented x3,exam grossly non-focal EXTREMITIES: normal ASSESSMENT/PLAN: 1. Encounter for gynecological examination (general) (routine) with abnormal findings - ICD9: V72.31, ICD10: Z01.411 (primary diagnosis) - Completed pelvic and breast exam - Encouraged monthly BSE - Follow up for annual exam in one year. - PAP TEST - BACTERIAL VAGINOSIS NAAT - DARYA/TRICHOMONAS NAAT - GONORRHEA/CHLAMYDIA NAAT 2. Screening for cervical cancer - ICD9: V76.2, ICD10: Z12.4 - Completed pelvic and breast exam - Encouraged monthly BSE - Follow up for annual exam in one year. - PAP TEST 3. Encounter for screening for human papillomavirus (HPV) - ICD9: V73.81, ICD10: Z11.51 - PAP TEST 4. Inverted nipple - ICD9: 611.79, ICD10: N64.59 - US BREAST LTD RIGHT - US BREAST LTD LEFT 5. Vaginal discharge - ICD9: 623.5, ICD10: N89.8 - DARYA/TRICHOMONAS NAAT - BACTERIAL VAGINOSIS NAAT 6. Encounter for surveillance of contraceptive pills - ICD9: V25.41, ICD10: Z30.41 - discussed with patient on how to take OCP's. - counseled on benefits, risks and possible severe side effects of OCP's. (more content not included)...[facility]10-18-[facility]24 History of Present illness Narrative* Mariana Hilario APRN.FABI - 11/23/2023 10:33 AM EDT Taxi Servicer offered: Patient declines. Richard is a 28 year old who presents for an annual gynecologic exam without complaints. Menses: cycles every 28 days and 5 days of flow. Contraception: combined hormonal contraceptives. Denies warning signs ACHES. Migraine but withoutaura. HPV vaccine: Yes Last Pap: 12/20/2020 normal HPV: N/A History of abnormal pap: No Last mammogram: never Sexually active: Yes Pain with intercourse: No Postcoital bleeding: No OB History T1 L1 SAB0 IAB0 Ectopic0 Multiple0 Live Births1 Dye Tub Tender History LMP: 10/18/2023 (Approximate), Having periods Age at Menarche: Age at First : Age at Menopause: Dye Tub Tender History Comments: Sexual Activity: Yes; Male; Male present Contraception: Pill PAST MEDICAL HISTORY Diagnosis Date Anxiety Calculus of gallbladder without biliary obstruction 08/10/2019 Cervical intraepithelial neoplasia grade 1 2016 Elevated glucose 09/01/2019 Patient had elevated glucose on last BMP. BMI elevated, No FM history of diabetes. 08/2019: Hba1c 5.3 Seasonal allergies flonase. Shingles outbreak PAST SURGICAL HISTORY Procedure Laterality Date CHOLECYSTECTOMY HX 08/2019 NONE 05/2010 FAMILY HISTORY Problem Relation Age of Onset COPD Maternal Grandfather other (smoker) Maternal Grandfather Hypertension Maternal Grandmother Lipids Maternal Grandmother Anxiety disorder Mother Cancer Paternal Grandfather bone? Anxiety disorder Sister SOCIAL HISTORY Social History Tobacco Use Smoking status: Never Smokeless tobacco: Never Vaping Use Vaping status: Never Used Substance Use Topics Alcohol use: Not Currently Comment: social Drug use: No REVIEW OF SYSTEMS Abdomen: No abdominal pain, nausea, vomiting, diarrhea, or constipation. No bloating, early satiety, indigestion, or increased flatulence. Bladder: No dysuria, gross hematuria, urinary frequency, urinary urgency, or incontinence. Breast: No breast lumps, nipple d/c, overlying skin changes, redness or skin retraction. Allergies and current medication updated:Yes SENSITIVE EXAM: The sensitive examination was discussed with the Patient or Patient's Authorized Professional Model. As applicable, any other physician, advance practice provider, medical student, or other health professional student that will be observing or involved in the sensitive examination for educational or training purposes was discussed with the Patient or Authorized Professional Model. The Patient or Authorized Professional Model has agreed to proceed with the sensitive examination. (Sensitive examination includes inspection and/or palpation of the breasts, pelvis, prostate and anorectal regions). EXAM: BP 114/76 Wt 193 lb (87.5kg) LMP 10/18/2023 GENERAL: pleasant, female in no apparent distress HEENT: Normocephalic, atraumatic, mucus membranes moist, and no lesions NECK: Supple, full range of motion, no adenopathy, and thyroid normal DERMATOLOGY: Normal, without lesions, non-icteric, and non-hirsute BREAST: soft, non-tender, symmetric, no dominant mass, no lymphadenopathy, no nipple discharge. Bilateral nipples inverted. Patient states this is new and have never been this way. CHEST: Normal inspiratory effort ABDOMEN: soft, non-tender, and no masses PELVIC: external genitalia normal, normal Bartholin's glands, urethra, Buford's glands, no vulvar lesions, no cervical lesions, good vaginal support, physiologic discharge present, normal appearing perineal body and perianal region BIMANUAL: uterus normal size, shape and consistency, no adnexal masses, and non-tender RECTOVAGINAL: deferred. NEURO: alert and oriented x3,exam grossly non-focal EXTREMITIES: normal ASSESSMENT/PLAN: 1. Encounter for gynecological examination (general) (routine) with abnormal findings - ICD9: V72.31, ICD10: Z01.411 (primary diagnosis) - Completed pelvic and breast exam - Encouraged monthly BSE - Follow up for annual exam in one year. - PAP TEST - BACTERIAL VAGINOSIS NAAT - DARYA/TRICHOMONAS NAAT - GONORRHEA/CHLAMYDIA NAAT 2. Screening for cervical cancer - ICD9: V76.2, ICD10: Z12.4 - Completed pelvic and breast exam - Encouraged monthly BSE - Follow up for annual exam in one year. - PAP TEST 3. Encounter for screening for human papillomavirus (HPV) - ICD9: V73.81, ICD10: Z11.51 - PAP TEST 4. Inverted nipple - ICD9: 611.79, ICD10: N64.59 - US BREAST LTD RIGHT - US BREAST LTD LEFT 5. Vaginal discharge - ICD9: 623.5, ICD10: N89.8 - DARYA/TRICHOMONAS NAAT - BACTERIAL VAGINOSIS NAAT 6. Encounter for surveillance of contraceptive pills - ICD9: V25.41, ICD10: Z30.41 - discussed with patient on how to take OCP's. - counseled on benefits, risks and possible severe side effects of OCP's. - discussed need to use Condoms to help to prevent STD's including HIV etc. 1) Health maintenance: Pap done with HPV. Mammogram starting age 40. Nutrition, exercise and routine health maintenance exams reviewed. Calcium/Vitamin D supplementation information provided. Lipids/glucose: followed by PCP Vitamin D: followed by PCP 2) Contraception: combined hormonal contraceptives. Contraceptive options reviewed and information provided. 3) STD screening: Declined STD check. 4) Follow up one year or sooner as needed Mariana Hilario APRN.CNM documented in this encounterUniversity [facility]10-[facility]-2024 History of Present illness Narrative* Ed Vaz APRN.CNP - 11/21/2023 7:30 AM EDT Images from the original note were not included. Endocrinology Weight Management Follow Up This Team Access Model visit is a virtual encounter and Richard Smith has consented to this virtual encounter. This is a virtual visit using goCatcht Zoom Video Visit. It is a required patient-providerinteraction for the medical decision making as documented below. I have communicated my name and active licensure. The patient's identity and physical location wereverified at the time of this visit. Either the patient or their legal patient representative has been informed of the risks and benefits of -- and alternatives to -- treatment through a remote evaluation andconsents to proceed with the evaluation remotely. Subjective HISTORY OF PRESENT ILLNESS: Chief Complaint: medical weight loss Richard Smith is a 28 year old female who presented today for weight management and its co morbidities. 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 Last month appetite control was not as good 4-5 pm gets hungry Was snacking on chips more Side effects of treatment: none Weight Graph: Last 11 Encounter Wt Readings: Date: Wt: 11/21/2023 87.5 kg (193 lb) 08/06/2023 92.1 kg (203 lb) 06/06/2023 100.2 kg (221 lb) 04/16/2023 99.7 kg (219 lb 12.8 oz) 10/12/2022 92.1 kg (203 lb) 07/12/2022 92.4 kg (203 lb 12.8 oz) 06/05/2022 94.3 kg (208 lb) 12/18/2021 105.4 kg (232 lb 5.8 oz) 12/18/2021 105.4 kg (232 lb 6.4 oz) 09/19/2021 99.8 kg (220 lb) 08/19/2021 100.6 kg (221 lb 12.8 oz) Medical history pertaining to weight loss medications: History of pancreatitis or gallstones: no History of kidney stones: no History of seizures: no Current opiate use: no History of glaucoma: no History of CAD or uncontrolled HTN: no Personal/family history of MEN2, MTC: no Method of contraception if woman of child bearing age: oral contraceptive Past experience with AOM: Bupropion: no Naltrexone: no Topiramate: no Phentermine: no GLP-1: ozempic not covered , got to the 0.25 mg but when up the dose could not go pass Metformin: currently Qsymia: no Contrave: no Orlistat: no Diet: 24 hour recall: Breakfast: oatmeal or cereal Lunch: chicken salad or freezer meal lean cuisine Dinner: meat salad or a little carb Snacks: trying to stay a way if have it fruits , last month chips Beverages: water with lemon or cucumber 42 oz x 3 Per Week: EtOH: no Eating out: once a month Appetite Control: Not as well controlled Exercise / Physical Activity: 1 hour a day Treadmill and elliptical and weights Weekends take a break Sleep Quality: Okay Level of Stress: Low Social History: -- Lives 3rd shift 10:30 pm Sunday to Sunday 6:30 AM -- Works at [employer] Past History, Allergies, Medications: PAST MEDICAL HISTORY Diagnosis Date Anxiety Calculus of gallbladder without biliary obstruction 08/10/2019 Cervical intraepithelial neoplasia grade 1 2016 Elevated glucose 09/01/2019 Patient had elevated glucose on last BMP. BMI elevated, No FM history of diabetes. 08/2019: Hba1c 5.3 Seasonal allergies flonase. Shingles outbreak PAST SURGICAL HISTORY Procedure Laterality Date CHOLECYSTECTOMY HX 08/2019 NONE 05/2010 FAMILY HISTORY Problem Relation Age of Onset COPD Maternal Grandfather other (smoker) Maternal Grandfather Hypertension Maternal Grandmother Lipids Maternal Grandmother Anxiety disorder Mother Cancer Paternal Grandfather bone? Anxiety disorder Sister Social History Tobacco Use Smoking status: Never Smokeless tobacco: Never Vaping Use Vaping status: Never Used Substance Use Topics Alcohol use: Not Currently Comment: social Drug use: No Allergies: Imitrex [Sumatripta* Other: See Comments Comment:Patient stated her jaw locked up and hurt really bad Current Outpatient Medications on File Prior to Visit Medication Sig Drospirenone-Ethinyl Estradiol (LESLIE 28) 3-0.02 mg per tablet Take 1 tablet by mouth once daily for 28 days. cetirizine (ZYRTEC) 10 mg tablet Take 1 tablet by mouth once daily. fluticasone (FLONASE) 50 mcg/actuation nasal spray Use 2 Sprays in each nostril once daily. Rinse mouth after use. No current facility-administered medications on file prior to visit. Answers submitted by the patient for this visit: Core Review of Systems (Submitted on 11/19/2023) Fever : No Night sweats: No Recent unintentional weight change: No Nasal Congestion: No Hearing Loss: No Vision Disturbance: No A cough: No Difficulty Breathing?: No Chest pain: No Irregular heartbeat: No Leg Swelling: No Nausea: No Diarrhea: No Black tarry stools: No Difficulty Urinating?: No Awaken at Night More Than Once to Urinate?: No Joint pain or stiffness: No Muscle aches: No Leg or Foot Discomfort at Night?: No A rash: No Dizziness: No Headaches: No Memory Loss: No Seizures: No VIDEO PHYSICAL EXAMINATION: GENERAL: alert and appropriate, in no distress, well-hydrated, well nourished, and happy, smiling, interactive Previous Laboratory Results: Latest Ref Rng & Units 01/11/2022 12/18/2021 12/18/2021 BMP Glucose 74 - 99 mg/dL 113 101 BUN 7 - 21 mg/dL 13 15 Creatinine 0.58 - 0.96 mg/dL 0.86 0.71 Sodium 136 - 144 mmol/L 139 140 Potassium 3.7 - 5.1 mmol/L 3.8 4.4 -- Chloride 97 - 105 mmol/L 104 107 CO2 22 - 30 mmol/L 21 24 Anion Gap 9 - 18 mmol/L 14 9 Calcium 8.5 - 10.2 mg/dL 8.3 8.8 EGFR >=60 mL/min/1.73m 95 119 Lab Results Component Value Date HBA1C 5.3 01/11/2022 HBA1C 5.2 10/25/2020 HBA1C 5.2 06/16/2020 HBA1C 5.3 09/01/2019 TSH Date Value Ref Range Status 01/11/2022 3.110 0.270 - 4.200 mIU/L Final Comment: If the patient is , TSH reference range varies by gestational period: First Trimester (weeks 9-12): 0.180-2.990 mIU/L Second Trimester: 0.110-3.980 mIU/L Third Trimester: 0.480-4.710 mIU/L Loki Montero et al. A Practical Approach for the Verifications and Determination of Site- and Trimester-Specific Reference Intervals for Thyroid Function tests in . Thyroid, 2019:29:3:412-420.Clifford Lock et al. 2017 Guidelines of the [place] Thy[employer] Association for the Diagnosis and Management of Thyroid Disease during and the . Thyroid, 2017:27:3:315-389. Recent Lab Values 10/25/2020 01/11/2022 LDL 48 107 HDL 20 28 Comment for LDL at 9:51 AM on 10/25/2020: <100 mg/dL, Optimal 100-129 mg/dL, Near optimal/above optimal 130-159 mg/dL, Borderline high 160-189 mg/dL, High >189 mg/dL, Very high Secondary prevention optimal LDL Cholesterol levels are recommended to be < 70 mg/dL Comment for LDL at 8:53 AM on 01/11/2022: <100 mg/dL, Optimal 100-129 mg/dL, Near optimal/above optimal 130-159 mg/dL, Borderline high 160-189 mg/dL, High >189 mg/dL, Very high Secondary prevention optimal LDL Cholesterol levels are recommended to be < 70 mg/dL Comment for HDL at 9:51 AM on 10/25/2020: 40-59 mg/dL, Acceptable >59 mg/dL, High: Negative risk factor for coronary heart disease <40 mg/dL, Low: Positive risk factor for coronary heart disease Comment for HDL at 8:53 AM on 01/11/2022: 40-59 mg/dL, Acceptable >59 mg/dL, High: Negative risk factor for coronary heart disease <40 mg/dL, Low: Positive risk factor for coronary heart disease CrCl cannot be calculated (Patient's most recent lab result is older than the maximum 180 days allowed.). Impression/Recommendations: Encounter Diagnosis ICD-10-CM 1. Class 1 obesity with body mass index (BMI) of 32.0 to 32.9 in adult, unspecified obesity type, unspecified whether serious comorbidity present E66.811 Phentermine HCl 37.5 mg tablet Z68.32 Richard Smith is a 28 year old female who presented today for weight management and its co morbidities. 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 Weight at start of current Phentermine course- 04/16/23 : 99.7 kg (219 lb 12.8 oz) Current Weight- 193 lb Calculated weight after 5% weight loss from start weight-5% weight loss = 208 lbs Patient needs to maintain 5% weight loss to continue Phentermine - Current Weight Loss: 10 lb , total so far 26 lb - Appetite suppression is not as strong as before - Diet recall okay but need to add protein to breakfast - Patient states she was taking phentermine 1 full tablet , discussed the need to take it as prescribed which is 1/2 tablet - discussed benefits of adding Topamax. Below instruction given to patient. Stress the need to use 2nd protection for control. Continue phentermine 37.5 mg (1/2 tab) Start Topamax at 25 mg/day administered nightly for the first week. Can increase to 50 mg/day ( 2 tablets of 25 mg daily) for the 2nd week Common side effects: Most people who take Topamax (topiramate) have little or no problem with side effects. Those with problems most often complain of: fatigue or drowsiness difficulty with concentration difficulty finding the right word (word retrieval) confusion dizziness unsteadiness a feeling of pins and needles, usually in the tips of the fingers and toes loss of appetite and weight loss nervousness depression difficulty with memory Most of these problems are more common when higher doses of Topamax are taken. A few people do experience psychiatric disorders when they take Topamax. This is an off label use of this medication to help control appetite and cravings. Important information regarding this medication is that it reduces contraceptive effectiveness which can lead to breakthrough bleeding, spotting, or . The effect may last several days after the discontinuation of this medication. In addition topiramate is associated with increase risk of defects suchas cleft palate if you are to be on this medication. I would advise you to use 2 contraceptive method including condom along with the oral contraceptive. Common side effects are drowsiness and feeling tired, tingling of hands and feet. If this medication makes you drowsy I would change thetime of it to bedtime instead. Do not drive or operate machinery if you are drowsy. -For females of child-bearing age: it is not recommended to become while taking medications for weight loss. Please contact our office if you become . Follow up in 3 months Patient to continue to follow up with PCP and with other consultants regarding other medical problems. Ed Vaz APRN.CNP Endocrinology and Metabolism [place] [facility] documented in this encounterUniversity Hospitals [facility] Center10-16-2024 NoteHNO ID: [id number] Author: ED VAZ APRN.CNP Service: ? Author Type: Nurse Practitioner Type: Progress Notes Filed: 11/21/2023 07:55 Note Text: Endocrinology Weight Management Follow Up This Team Access Model visit is a virtual encounter and Richard Smith has consented to this virtual encounter. This is a virtual visit using MetricStream[employer] Video Visit. It is a required patient-provider interaction for the medical decision making as documented below. I have communicated my name and active licensure. The patient's identity and physical location were verified at the time of this visit. Either the patient or their legal patient representative has been informed of the risks and benefits of -- and alternatives to -- treatment through a remote evaluation and consents to proceed with the evaluation remotely. Subjective HISTORY OF PRESENT ILLNESS: Chief Complaint: medical weight loss Richard Smith is a 28 year old female who presented today for weight management and its co morbidities. Richard Smith has a past medical history of PCOS seeing [employer]ING MACHINE OPERATOR, anxiety (no medication) Control oral - have appt Sunday to get back on it Initial Weight: 99.7 kg or 219 lb 12.8 oz Last office visit 08/06/2023 Current weight loss medication: phentermine 37.5 mg 1/2 tablet daily , last two months was taking a whole pill. Last month appetite control was not as good 4-5 pm gets hungry Was snacking on chips more Side effects of treatment: none Weight Graph: Last 11 Encounter Wt Readings: Date: Wt: 11/21/2023 87.5 kg (193 lb) 08/06/2023 92.1 kg (203 lb) 06/06/2023 100.2 kg (221 lb) 04/16/2023 99.7 kg (219 lb 12.8 oz) 10/12/2022 92.1 kg (203 lb) 07/12/2022 92.4 kg (203 lb 12.8 oz) 06/05/2022 94.3 kg (208 lb) 12/18/2021 105.4 kg (232 lb 5.8 oz) 12/18/2021 105.4 kg (232 lb 6.4 oz) 09/19/2021 99.8 kg (220 lb) 08/19/2021 100.6 kg (221 lb 12.8 oz) Medical history pertaining to weight loss medications: History of pancreatitis or gallstones: no History of kidney stones: no History of seizures: no Current opiate use: no History of glaucoma: no History of CAD or uncontrolled HTN: no Personal/family history of MEN2, MTC: no Method of contraception if woman of child bearing age: oral contraceptive Past experience with AOM: Bupropion: no Naltrexone: no Topiramate: no Phentermine: no GLP-1: ozempic not covered , got to the 0.25 mg but when up the dose could not go pass Metformin: currently Qsymia: no Contrave: no Orlistat: no Diet: 24 hour recall: Breakfast: oatmeal or cereal Lunch: chicken salad or freezer meal lean cuisine Dinner: meat salad or a little carb Snacks: trying to stay a way if have it fruits , last month chips Beverages: water with lemon or cucumber 42 oz x 3 Per Week: EtOH: no Eating out: once a month Appetite Control: Not as well controlled Exercise / Physical Activity: 1 hour a day Treadmill and elliptical and weights Weekends take a break Sleep Quality: Okay Level of Stress: Low Social History: -- Lives 3rd shift 10:30 pm Sunday to Sunday 6:30 AM -- Works at [employer] Past History, Allergies, Medications: PAST MEDICAL HISTORY Diagnosis Date Anxiety Calculus of gallbladder without biliary obstruction 08/10/2019 Cervical intraepithelial neoplasia grade 1 2016 Elevated glucose 09/01/2019 Patient had elevated glucose on last BMP. BMI elevated, No FM history of diabetes. 08/2019: Hba1c 5.3 Seasonal allergies flonase. Shingles outbreak PAST SURGICAL HISTORY Procedure Laterality Date CHOLECYSTECTOMY HX 08/2019 NONE 05/2010 FAMILY HISTORY Problem Relation Age of Onset COPD Maternal Grandfather other (smoker) Maternal Grandfather Hypertension Maternal Grandmother Lipids Maternal Grandmother Anxiety disorder Mother Cancer Paternal Grandfather bone? Anxiety disorder Sister Social History Tobacco Use Smoking status: Never Smokeless tobacco: Never Vaping Use Vaping status: Never Used Substance Use Topics Alcohol use: Not Currently Comment: social Drug use: No Allergies: Imitrex [Sumatripta* Other: See Comments Comment:Patient stated her jaw locked up and hurt really bad Current Outpatient Medications on File Prior to Visit Medication Sig Drospirenone-Ethinyl Estradiol (LESLIE 28) 3-0.02 mg per tablet Take 1 tablet by mouth once daily for 28 days. cetirizine (ZYRTEC) 10 mg tablet Take 1 tablet by mouth once daily. fluticasone (FLONASE) 50 mcg/actuation nasal spray Use 2 Sprays in each nostril once daily. Rinse mouth after use. No current facility-administered medications on file prior to visit. Answers submitted by the patient for this visit: Core Review of Systems (Submitted on 11/19/2023) Fever : No Night sweats: No Recent unintentional weight change: No Nasal Congestion: No Hearing Loss: No Vision Disturbance: No A cough: No Difficulty Breathing?: No Chest pa (more content not included)...[facility]07-02-2024 Telephone encounter Note* Telephone Encounter - Enriqueta Mckeon RN - 08/07/2023 11:15 AM EDT Ed, please see My Chart [facility]07-02-2024 Miscellaneous Notes* Telephone Encounter - Enriqueta Mckeon RN - 08/07/2023 11:15 AM EDT Ed, please see My Chart documented in this encounterUniversity Hospitals Cleveland [facility] Center07-01-2024 History of Present illness Narrative* Ed Vaz APRN.JUAN M - 08/06/2023 7:30 AM EDT Images from the original note were not included. Endocrinology Weight Management Follow Up This Team Access Model visit is a virtual encounter and Richard Raymond Sarah has consented to this virtual encounter. This is a virtual visit using goCatcht Zoom Video Visit. It is a required patient-providerinteraction for the medical decision making as documented below. I have communicated my name and active licensure. The patient's identity and physical location wereverified at the time of this visit. Either the patient or their legal patient representative has been informed of the risks and benefits of -- and alternatives to -- treatment through a remote evaluation andconsents to proceed with the evaluation remotely. 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 Not doing Metformin due to upset stomach. Side effects of treatment: dry mouth , Weight trend: down Weight Graph: Weight Readings: Last 11 Encounter Wt Readings: Date: Wt: 08/06/2023 92.1 kg (203 lb) 06/06/2023 100.2 kg (221 lb) 04/16/2023 99.7 kg (219 lb 12.8 oz) 10/12/2022 92.1 kg (203 lb) 07/12/2022 92.4 kg (203 lb 12.8 oz) 06/05/2022 94.3 kg (208 lb) 12/18/2021 105.4 kg (232 lb 5.8 oz) 12/18/2021 105.4 kg (232 lb 6.4 oz) 09/19/2021 99.8 kg (220 lb) 08/19/2021 100.6 kg (221 lb 12.8 oz) 08/03/2021 102.3 kg (225 lb 9.6 oz) 04/16/2023 99.7 kg (219 lb 12.8 oz) >> starting weight with phentermine Weight Loss Medication: Medical history pertaining to weight loss medications: History of pancreatitis or gallstones: no History of kidney stones: no History of seizures: no Current opiate use: no History of glaucoma: no History of CAD or uncontrolled HTN: no Personal/family history of MEN2, MTC: no Method of contraception if woman of child bearing age: oral contraceptive Past experience with AOM: Bupropion: no Naltrexone: no Topiramate: no Phentermine: no GLP-1: ozempic not covered , got to the 0.25 mg but when up the dose could not go pass Metformin: currently Qsymia: no Contrave: no Orlistat: no Diet: Junior And RD Breakfast: protein shake , toast /eggs/slice of swann Lunch: salad or chicken Dinner: bigger portion (meat/veggie/ measure out the carb) Drink: 16 oz x 3-4 per day Alcohol: none Appetite: Controlled Exercise / Physical Activity: 4 days a week (30 minutes to 1 hour) Squats / treadmil / eliptical and lifting Sleep: none Level of Stress: None 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 BMI elevated, No FM history of diabetes. 08/2019: Hba1c 5.3 Seasonal allergies flonase. Shingles outbreak PAST SURGICAL HISTORY Procedure Laterality Date CHOLECYSTECTOMY HX 08/2019 NONE 05/2010 FAMILY HISTORY Problem Relation Age of Onset COPD Maternal Grandfather other (smoker) Maternal Grandfather Hypertension Maternal Grandmother Lipids Maternal Grandmother Anxiety disorder Mother Cancer Paternal Grandfather bone? Anxiety disorder Sister Social History Tobacco Use Smoking status: Never Smokeless tobacco: Never Vaping Use Vaping Use: Never used Substance Use Topics Alcohol use: Not Currently Comment: social Drug use: No Allergies: Imitrex [Sumatripta* Other: See Comments Comment:Patient stated her jaw locked up and hurt really bad Current Outpatient Medications on File Prior to Visit Medication Sig Phentermine HCl 37.5 mg tablet Take 1 tablet daily before breakfast. metFORMIN ER (GLUCOPHAGE XR) 500 mg 24 hr tablet Take 1 tablet by mouth daily with dinner. Drospirenone-Ethinyl Estradiol (LESLIE 28) 3-0.02 mg per tablet Take 1 tablet by mouth once daily for 28 days. cetirizine (ZYRTEC) 10 mg tablet Take 1 tablet by mouth once daily. fluticasone (FLONASE) 50 mcg/actuation nasal spray Use 2 Sprays in each nostril once daily. Rinse mouth after use. No current facility-administered medications on file prior to visit. Answers submitted by the patient for this visit: Core Review of Systems (Submitted on 07/30/2023) Fever : No Night sweats: No Recent unintentional weight change: No Nasal Congestion: No Hearing Loss: No Vision Disturbance: No A cough: No Difficulty Breathing?: No Chest pain: No Irregular heartbeat: No Leg Swelling: No Nausea: No Diarrhea: No Black tarry stools: No Difficulty Urinating?: No Awaken at Night More Than Once to Urinate?: No Joint pain or stiffness: No Muscle aches: No Leg or Foot Discomfort at Night?: No A rash: No Dizziness: No Headaches: No Memory Loss: No Seizures: No VIDEO PHYSICAL EXAMINATION: GENERAL: alert and appropriate, in no distress, well-hydrated, well nourished, and happy, smiling, interactive Previous Laboratory Results: Latest Ref Rng & Units 01/11/2022 12/18/2021 12/18/2021 BMP Glucose 74 - 99 mg/dL 113 101 BUN 7 - 21 mg/dL 13 15 Creatinine 0.58 - 0.96 mg/dL 0.86 0.71 Sodium 136 - 144 mmol/L 139 140 Potassium 3.7 - 5.1 mmol/L 3.8 4.4 Chloride 97 - 105 mmol/L 104 107 CO2 22 - 30 mmol/L 21 24 Anion Gap 9 - 18 mmol/L 14 9 Calcium 8.5 - 10.2 mg/dL 8.3 8.8 EGFR >=60 mL/min/1.73m 95 119 Lab Results Component Value Date HBA1C 5.3 01/11/2022 HBA1C 5.2 10/25/2020 HBA1C 5.2 06/16/2020 HBA1C 5.3 09/01/2019 TSH Date Value Ref Range Status 01/11/2022 3.110 0.270 - 4.200 mIU/L Final Comment: If the patient is , TSH reference range varies by gestational period: First Trimester (weeks 9-12): 0.180-2.990 mIU/L Second Trimester: 0.110-3.980 mIU/L Third Trimester: 0.480-4.710 mIU/L Loki Montero et al. A Practical Approach for the Verifications and Determination of Site- and Trimester-Specific Reference Intervals for Thyroid Function tests in . Thyroid, 2019:29:3:412-420.Clifford Lock, et al. 2017 Guidelines of the [place] Thy[employer] for the Diagnosis and Management of Thyroid Disease during and the . Thyroid, 2017:27:3:315-389. Recent Lab Values 10/25/2020 01/11/2022 LDL 48 107 HDL 20 28 Comment for LDL at 9:51 AM on 10/25/2020: <100 mg/dL, Optimal 100-129 mg/dL, Near optimal/above optimal 130-159 mg/dL, Borderline high 160-189 mg/dL, High >189 mg/dL, Very high Secondary prevention optimal LDL Cholesterol levels are recommended to be < 70 mg/dL Comment for LDL at 8:53 AM on 01/11/2022: <100 mg/dL, Optimal 100-129 mg/dL, Near optimal/above optimal 130-159 mg/dL, Borderline high 160-189 mg/dL, High >189 mg/dL, Very high Secondary prevention optimal LDL Cholesterol levels are recommended to be < 70 mg/dL Comment for HDL at 9:51 AM on 10/25/2020: 40-59 mg/dL, Acceptable >59 mg/dL, High: Negative risk factor for coronary heart disease <40 mg/dL, Low: Positive risk factor for coronary heart disease Comment for HDL at 8:53 AM on 01/11/2022: 40-59 mg/dL, Acceptable >59 mg/dL, High: Negative risk factor for coronary heart disease <40 mg/dL, Low: Positive risk factor for coronary heart disease CrCl cannot be calculated (Patient's most recent lab result is older than the maximum 180 days allowed.). Impression/Recommendations: Encounter Diagnosis ICD-10-CM 1. Class 1 obesity with body mass index (BMI) of 34.0 to 34.9 in adult, unspecified obesity type, unspecified whether serious comorbidity present E66.9 Z68.34 Patient comes today for treatment of overweight/obesity and its comorbidities. Weight at start of current Phentermine course- 04/16/23 : 99.7 kg (219 lb 12.8 oz) Current Weight- 203 lb per home scale Calculated weight after 5% weight loss from start weight-5% weight loss = 208 lbs Patient needs to maintain 5% weight loss to continue Phentermine - Classification: Obesity Class 1 (BMI is 34.66) - Current Weight Loss: 16 lb over 3 months , meet the 5% weight loss on 3 months therapy - Continue with phentermine for longer term but at lower dose. Patient to send me her blood pressure/pulse. - Dietary recommendations: per RD - Exercise recommendations: continue current work out routine - Recommend 7-9 hours sleep nightly, regular sleep pattern, - Stress management Follow up in 3 months Medical Decision Making: Problems: Moderate: 1+ chronic illnesses with change Risk: Moderate: Drug management Medical Decision Making Level: 4 - Moderate Patient to continue to follow up with PCP and with other consultants regarding other medical problems. Ed Vaz APRN.CNP Endocrinology and Metabolism [place] [facility] documented in this encounterUniversity Hospitals Cleveland [facility] Center07-01-2024 NoteHNO ID: [id number] Author: ED VAZ APRN.CNP Service: ? Author Type: Nurse Practitioner Type: Progress Notes Filed: 08/06/2023 07:35 Note Text: Endocrinology Weight Management Follow Up This Team Access Model visit is a virtual encounter and Richard Smith has consented to this virtual encounter. This is a virtual visit using MetricStreamom Video Visit. It is a required patient-provider interaction for the medical decision making as documented below. I have communicated my name and active licensure. The patient's identity and physical location were verified at the time of this visit. Either the patient or their legal patient representative has been informed of the risks and benefits of -- and alternatives to -- treatment through a remote evaluation and consents to proceed with the evaluation remotely. 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 Not doing Metformin due to upset stomach. Side effects of treatment: dry mouth , Weight trend: down Weight Graph: Weight Readings: Last 11 Encounter Wt Readings: Date: Wt: 08/06/2023 92.1 kg (203 lb) 06/06/2023 100.2 kg (221 lb) 04/16/2023 99.7 kg (219 lb 12.8 oz) 10/12/2022 92.1 kg (203 lb) 07/12/2022 92.4 kg (203 lb 12.8 oz) 06/05/2022 94.3 kg (208 lb) 12/18/2021 105.4 kg (232 lb 5.8 oz) 12/18/2021 105.4 kg (232 lb 6.4 oz) 09/19/2021 99.8 kg (220 lb) 08/19/2021 100.6 kg (221 lb 12.8 oz) 08/03/2021 102.3 kg (225 lb 9.6 oz) 04/16/2023 99.7 kg (219 lb 12.8 oz) >> starting weight with phentermine Weight Loss Medication: Medical history pertaining to weight loss medications: History of pancreatitis or gallstones: no History of kidney stones: no History of seizures: no Current opiate use: no History of glaucoma: no History of CAD or uncontrolled HTN: no Personal/family history of MEN2, MTC: no Method of contraception if woman of child bearing age: oral contraceptive Past experience with AOM: Bupropion: no Naltrexone: no Topiramate: no Phentermine: no GLP-1: ozempic not covered , got to the 0.25 mg but when up the dose could not go pass Metformin: currently Qsymia: no Contrave: no Orlistat: no Diet: Junior And RD Breakfast: protein shake , toast /eggs/slice of swann Lunch: salad or chicken Dinner: bigger portion (meat/veggie/ measure out the carb) Drink: 16 oz x 3-4 per day Alcohol: none Appetite: Controlled Exercise / Physical Activity: 4 days a week (30 minutes to 1 hour) Squats / treadmil / eliptical and lifting Sleep: none Level of Stress: None 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 BMI elevated, No FM history of diabetes. 08/2019: Hba1c 5.3 Seasonal allergies flonase. Shingles outbreak PAST SURGICAL HISTORY Procedure Laterality Date CHOLECYSTECTOMY HX 08/2019 NONE 05/2010 FAMILY HISTORY Problem Relation Age of Onset COPD Maternal Grandfather other (smoker) Maternal Grandfather Hypertension Maternal Grandmother Lipids Maternal Grandmother Anxiety disorder Mother Cancer Paternal Grandfather bone? Anxiety disorder Sister Social History Tobacco Use Smoking status: Never Smokeless tobacco: Never Vaping Use Vaping Use: Never used Substance Use Topics Alcohol use: Not Currently Comment: social Drug use: No Allergies: Imitrex [Sumatripta* Other: See Comments Comment:Patient stated her jaw locked up and hurt really bad Current Outpatient Medications on File Prior to Visit Medication Sig Phentermine HCl 37.5 mg tablet Take 1 tablet daily before breakfast. metFORMIN ER (GLUCOPHAGE XR) 500 mg 24 hr tablet Take 1 tablet by mouth daily with dinner. Drospirenone-Ethinyl Estradiol (LESLIE 28) 3-0.02 mg per tablet Take 1 tablet by mouth once daily for 28 days. cetirizine (ZYRTEC) 10 mg tablet Take 1 tablet by mouth once daily. fluticasone (FLONASE) 50 mcg/actuation nasal spray Use 2 Sprays in each nostril once daily. Rinse mouth after use. No current facility-administered medications on file prior to visit. Answers submitted by the patient for this visit: Core Review of Systems (Submitted on 07/30/2023) Fever : No Night sweats: No Recent unintentional weight change: No Nasal Congestion: No Hearing Loss: No Vision Disturbance: No A cough: No Difficulty Breathing?: No Chest pain: No Irreg (more content not included)...[facility]05-16-2024 Telephone encounter Note* Telephone Encounter - Susana Batista MA - 06/21/2023 10:27 AM EDT Images from the original note were not included. MARIANNE denied for Phentermine. Please see letter below. [facility]05-16-2024 Miscellaneous Notes* Telephone Encounter - Susana Batista MA - 06/21/2023 10:27 AM EDT Images from the original note were not included. MARIANNE denied for Phentermine. Please see letter below. * Telephone Encounter - Susana Batista MA - 06/20/2023 12:40 PM EDT MARIANNE initiated via [employer] for Phentermine 37.5 mg. Faxed to [phone] with confirmation; filed in cabinet. documented in this encounterUniversity Hospitals Cleveland [facility] Center05-15-2024 Telephone encounter Note * Telephone Encounter - Susana Batista MA - 06/20/2023 12:40 PM EDT PA initiated via [employer] for Phentermine 37.5 mg. Faxed to [phone] with confirmation; filed in cabinet. [facility]05-01-2024 History of Present illness Narrative* Ed Vaz APRN.CROSSBOW MAKER - 06/06/2023 10:00 AM EDT Images from the original note were not included. 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, anxiety (no medication) Control oral Patient's last appt in this department for weight loss: 04/26/2023 started on phentermine 8 mg daily , no issue with anxiety with this medication, Side effects of treatment: none Weight trend: stagnant Weight Graph: Weight Readings: Last 11 Encounter Wt Readings: Date: Wt: 06/06/2023 100.2 kg (221 lb) 04/16/2023 99.7 kg (219 lb 12.8 oz) >> starting weight 10/12/2022 92.1 kg (203 lb) 07/12/2022 92.4 kg (203 lb 12.8 oz) 06/05/2022 94.3 kg (208 lb) 12/18/2021 105.4 kg (232 lb 5.8 oz) 12/18/2021 105.4 kg (232 lb 6.4 oz) 09/19/2021 99.8 kg (220 lb) 08/19/2021 100.6 kg (221 lb 12.8 oz) 08/03/2021 102.3 kg (225 lb 9.6 oz) 08/02/2021 101 kg (222 lb 9.6 oz) Weight Loss Medication: Medical history pertaining to weight loss medications: History of pancreatitis or gallstones: no History of kidney stones: no History of seizures: no Current opiate use: no History of glaucoma: no History of CAD or uncontrolled HTN: no Personal/family history of MEN2, MTC: no Method of contraception if woman of child bearing age: oral contraceptive Past experience with AOM: Bupropion: no Naltrexone: no Topiramate: no Phentermine: no GLP-1: ozempic not covered , got to the 0.25 mg but when up the dose could not go pass Metformin: currently Qsymia: no Contrave: no Orlistat: no Diet: Seen by SYD 05/29/2023 Sugary food is less craving Cutting out noodles Breakfast: if working protein shake or some thing fast Lunch: salads / meat Dinner: chicken or steak veggies Snacking none - if do yogurt or fruit Drink: water 16 oz x 3 per day Alcohol: none Appetite: Controlled Exercise / Physical Activity: 30 minutes 4 x a week treadmill and eliptical Will adding squats Sleep: 7-8 hours Level of Stress: A bit - getting 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 BMI elevated, No FM history of diabetes. 08/2019: Hba1c 5.3 Seasonal allergies flonase. Shingles outbreak PAST SURGICAL HISTORY Procedure Laterality Date CHOLECYSTECTOMY HX 08/2019 NONE 05/2010 FAMILY HISTORY Problem Relation Age of Onset COPD Maternal Grandfather other (smoker) Maternal Grandfather Hypertension Maternal Grandmother Lipids Maternal Grandmother Anxiety disorder Mother Cancer Paternal Grandfather bone? Anxiety disorder Sister Social History Tobacco Use Smoking status: Never Smokeless tobacco: Never Vaping Use Vaping Use: Never used Substance Use Topics Alcohol use: Not Currently Comment: social Drug use: No Allergies: Imitrex [Sumatripta* Other: See Comments Comment:Patient stated her jaw locked up and hurt really bad Current Outpatient Medications on File Prior to Visit Medication Sig Phentermine HCl (LOMAIRA) 8 mg tablet Take 1 tablet daily in the morning before breakfast . BMI 37.53 metFORMIN ER (GLUCOPHAGE XR) 500 mg 24 hr tablet Take 1 tablet by mouth twice daily before meals. Drospirenone-Ethinyl Estradiol (LESLIE 28) 3-0.02 mg per tablet Take 1 tablet by mouth once daily for 28 days. cetirizine (ZYRTEC) 10 mg tablet Take 1 tablet by mouth once daily. fluticasone (FLONASE) 50 mcg/actuation nasal spray Use 2 Sprays in each nostril once daily. Rinse mouth after use. No current facility-administered medications on file prior to visit. REVIEW OF SYSTEMS: GENERAL: No weight loss, malaise or fevers RESPIRATORY: Negative for cough, hemoptysis, wheezing, COPD, dyspnea or shortness of breath CARDIOVASCULAR: Negative for chest pain, leg swelling, hypertension, CHF or palpitations GI: No nausea, vomiting, or diarrhea ENDOCRINE: Negative for cold or heat intolerance, polyuria, polydipsia and goiter Feet: No problems NEUROLOGIC:Negative for focal numbness or weakness, headaches and dizziness or syncope. Physical examination: VS: BP 113/76 Pulse 73 Wt 100.2 kg (221 lb) LMP 06/19/2022 (Approximate) SpO2 95% BMI 37.73 kg/m Physical Exam Constitutional: Appearance: Normal appearance. Cardiovascular: Rate and Rhythm: Normal rate and regular rhythm. Heart sounds: Normal heart sounds. Neurological: General: No focal deficit present. Mental Status: She is alert and oriented to person, place, and time. Mental status is at baseline. Previous Laboratory Results: Latest Ref Rng & Units 01/11/2022 12/18/2021 12/18/2021 BMP Glucose 74 - 99 mg/dL 113 101 BUN 7 - 21 mg/dL 13 15 Creatinine 0.58 - 0.96 mg/dL 0.86 0.71 Sodium 136 - 144 mmol/L 139 140 Potassium 3.7 - 5.1 mmol/L 3.8 4.4 Chloride 97 - 105 mmol/L 104 107 CO2 22 - 30 mmol/L 21 24 Anion Gap 9 - 18 mmol/L 14 9 Calcium 8.5 - 10.2 mg/dL 8.3 8.8 EGFR >=60 mL/min/1.73m 95 119 Lab Results Component Value Date HBA1C 5.3 01/11/2022 HBA1C 5.2 10/25/2020 HBA1C 5.2 06/16/2020 HBA1C 5.3 09/01/2019 TSH Date Value Ref Range Status 01/11/2022 3.110 0.270 - 4.200 mIU/L Final Comment: If the patient is , TSH reference range varies by gestational period: First Trimester (weeks 9-12): 0.180-2.990 mIU/L Second Trimester: 0.110-3.980 mIU/L Third Trimester: 0.480-4.710 mIU/L Loki Montero et al. A Practical Approach for the Verifications and Determination of Site- and Trimester-Specific Reference Intervals for Thyroid Function tests in . Thyroid, 2019:29:3:412-420.Clifford Lock, et al. 2017 Guidelines of the [place] Thyroid Association for the Diagnosis and Management of Thyroid Disease during and the . Thyroid, 2017:27:3:315-389. Recent Lab Values 10/25/2020 01/11/2022 LDL 48 107 HDL 20 28 Comment for LDL at 9:51 AM on 10/25/2020: <100 mg/dL, Optimal 100-129 mg/dL, Near optimal/above optimal 130-159 mg/dL, Borderline high 160-189 mg/dL, High >189 mg/dL, Very high Secondary prevention optimal LDL Cholesterol levels are recommended to be < 70 mg/dL Comment for LDL at 8:53 AM on 01/11/2022: <100 mg/dL, Optimal 100-129 mg/dL, Near optimal/above optimal 130-159 mg/dL, Borderline high 160-189 mg/dL, High >189 mg/dL, Very high Secondary prevention optimal LDL Cholesterol levels are recommended to be < 70 mg/dL Comment for HDL at 9:51 AM on 10/25/2020: 40-59 mg/dL, Acceptable >59 mg/dL, High: Negative risk factor for coronary heart disease <40 mg/dL, Low: Positive risk factor for coronary heart disease Comment for HDL at 8:53 AM on 01/11/2022: 40-59 mg/dL, Acceptable >59 mg/dL, High: Negative risk factor for coronary heart disease <40 mg/dL, Low: Positive risk factor for coronary heart disease CrCl cannot be calculated (Patient's most recent lab result is older than the maximum 180 days allowed.). Impression/Recommendations: Encounter Diagnosis ICD-10-CM 1. Class 2 obesity with body mass index (BMI) of 37.0 to 37.9 in adult, unspecified obesity type, unspecified whether serious comorbidity present E66.9 Phentermine HCl 37.5 mg tablet Z68.37 2. Obesity, Class I, BMI 30-34.9 E66.9 metFORMIN ER (GLUCOPHAGE XR) 500 mg 24 hr tablet Patient comes today for treatment of overweight/obesity and its comorbidities. Overall appetite controlled not snacking as much however no weight loss on phentermine 8 mg. Last Wt 04/16/23 : 99.7 kg (219 lb 12.8 oz) 5% weight loss = 209 lbs - Classification: Obesity Class 2 (BMI is 37.73) - Current Weight Loss: none - Increase phentermine to 37.5 mg daily x 30 days - Dietary recommendations: start tracking on myfitness pal - Exercise recommendations: Recommend gradual increase in exercise. Goal is 150+ minutes moderate-intensity exercise per week + strength training/resistance exercise 2 days per week. - Recommend 7-9 hours sleep nightly, regular sleep pattern, - Stress management Follow up in 2 months Medical Decision Making: Problems: Moderate: 1+ chronic illnesses with change Risk: Moderate: Drug management Medical Decision Making Level: 4 - Moderate Patient to continue to follow up with PCP and with other consultants regarding other medical problems. Ed Vaz APRN.JUAN M Endocrinology and Metabolism [place] [facility] documented in this encounterUniversity Hospitals Cleveland [facility] Center04-23-2024 History of Present illness Narrative* Cadence Camejo, RD - 05/29/2023 10:00 AM EDT [facility] Medical Nutrition Therapy Visit Type: I have communicated my name and active licensure. The patient's identity and physical location wereverified at the time of this visit. Either the patient or their legal patient representative has been informed of the risks and benefits of -- and alternatives to -- treatment through a remote evaluation andconsents to proceed with the evaluation remotely. Patient states reason for visit: Weight Management Initial DEMOGRAPHICS: Co-Morbidities: PAST MEDICAL HISTORY Diagnosis Date Anxiety Calculus of gallbladder without biliary obstruction 08/10/2019 Cervical intraepithelial neoplasia grade 1 2016 Elevated glucose 09/01/2019 Patient had elevated glucose on last BMP. BMI elevated, No FM history of diabetes. 08/2019: Hba1c 5.3 Seasonal allergies flonase. 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 5 hours on work days, 7 or more on days off Diet History: works 3rd shift 4 days a week Breakfast: skips in days working as she sleeps from 8:30 AM- 1PM, on days off (3 days a week) will eat [employer] mitchel yogurt or protein shake Premier not much of a breakfast eater Snack: n/a Lunch:1-2 PM salad with cheese+ranch or fast food - [employer] chicken sandwich- fried crispy, sometimes fries Snack:3-4PM chips Dinner:7 PM meat+veg+starch like noodles Snack: chips, string cheese Work 10:30PM to 6:30 AM n- no food during shift, just water Sleep from 8:30AM-1 or 2 PM Fluids water, diet sprite, eliminated sugary beverages earli this month ETOH denies Dining/eating out? 1/wk- fast food Allergies: No Food Allergy Patient / Provider Comments: Pt seen for initial MNT assessment and education for weight managementin 28 year old female with BMI of 37. Pt states she just started taking 8 mg Lomaira once a day at the beginning of the month. Pt was previously on metformin but states she stopped taking once she started Lomaira. Pt works 3rd shift but tried to maintain a normal wake and sleep scheduled on days off and eats all of her meals before going in to work so she is not eating during the night while on shift. Food recalls reveals some feeds may lack protein and or fiber, discussed ways to increase. Pt states she reduced sugary beverages earlier this month and is now working to decrease intake of chips. Medications: Current Outpatient Medications Medication Sig Phentermine HCl (LOMAIRA) 8 mg tablet Take 1 tablet daily in the morning before breakfast . BMI 37.53 metFORMIN ER (GLUCOPHAGE XR) 500 mg 24 hr tablet Take 1 tablet by mouth twice daily before meals. Drospirenone-Ethinyl Estradiol (LESLIE 28) 3-0.02 mg per tablet Take 1 tablet by mouth once daily for 28 days. cetirizine (ZYRTEC) 10 mg tablet Take 1 tablet by mouth once daily. fluticasone (FLONASE) 50 mcg/actuation nasal spray Use 2 Sprays in each nostril once daily. Rinse mouth after use. No current facility-administered medications for this visit. Labs: Glucose (mg/dL) Date Value 01/11/2022 113 10/25/2020 107 Potassium (mmol/L) Date Value 01/11/2022 3.8 10/25/2020 3.7 Sodium (mmol/L) Date Value 01/11/2022 139 10/25/2020 141 Chloride (mmol/L) Date Value 01/11/2022 104 10/25/2020 109 CO2 (mmol/L) Date Value 01/11/2022 21 10/25/2020 23 Creatinine (mg/dL) Date Value 01/11/2022 0.86 10/25/2020 0.94 BUN (mg/dL) Date Value 01/11/2022 13 10/25/2020 15 Anion Gap (mmol/L) Date Value 01/11/2022 14 10/25/2020 9 Calcium (mg/dL) Date Value 10/25/2020 8.3 Calcium, Total (mg/dL) Date Value 01/11/2022 8.3 Lab Results Component Value Date HBA1C 5.3 01/11/2022 HBA1C 5.2 10/25/2020 HBA1C 5.2 06/16/2020 HBA1C 5.3 09/01/2019 Cholesterol, Total Date Value Ref Range Status 01/11/2022 196 <200 mg/dL Final Comment: <200 mg/dL, Desirable 200-239 mg/dL, Borderline high >239 mg/dL, High HDL Cholesterol Date Value Ref Range Status 01/11/2022 28 (L) >39 mg/dL Final Comment: 40-59 mg/dL, Acceptable >59 mg/dL, High: Negative risk factor for coronary heart disease <40 mg/dL, Low: Positive risk factor for coronary heart disease LDL Cholesterol Date Value Ref Range Status 01/11/2022 107 (H) <100 mg/dL Final Comment: <100 mg/dL, Optimal 100-129 mg/dL, Near optimal/above optimal 130-159 mg/dL, Borderline high 160-189 mg/dL, High >189 mg/dL, Very high Secondary prevention optimal LDL Cholesterol levels are recommended to be < 70 mg/dL Triglyceride Date Value Ref Range Status 01/11/2022 305 (H) <150 mg/dL Final Comment: <150 mg/dL, Normal 150-199 mg/dL, Borderline high 200-499 mg/dL, High >499 mg/dL, Very high Glucose (mg/dL) Date Value 01/11/2022 113 10/25/2020 107 Potassium (mmol/L) Date Value 01/11/2022 3.8 10/25/2020 3.7 Sodium (mmol/L) Date Value 01/11/2022 139 10/25/2020 141 Chloride (mmol/L) Date Value 01/11/2022 104 10/25/2020 109 CO2 (mmol/L) Date Value 01/11/2022 21 10/25/2020 23 Creatinine (mg/dL) Date Value 01/11/2022 0.86 10/25/2020 0.94 BUN (mg/dL) Date Value 01/11/2022 13 10/25/2020 15 Anion Gap (mmol/L) Date Value 01/11/2022 14 10/25/2020 9 Calcium (mg/dL) Date Value 10/25/2020 8.3 Calcium, Total (mg/dL) Date Value 01/11/2022 8.3 Protein, Total (g/dL) Date Value 01/11/2022 7.1 10/25/2020 6.7 Albumin (g/dL) Date Value 01/11/2022 4.3 10/25/2020 4.1 Bilirubin, Total (mg/dL) Date Value 01/11/2022 0.3 10/25/2020 <0.2 Alkaline Phosphatase (U/L) Date Value 01/11/2022 87 10/25/2020 82 AST (U/L) Date Value 01/11/2022 22 10/25/2020 15 ALT (U/L) Date Value 01/11/2022 32 10/25/2020 25 ANTHROPOMETRICS Height: Last 1 Encounter Ht Readings: Date: Ht: 12/07/2020 163 cm (5' 4.17) Current weight: Last 3 Encounter Wt Readings: Date: Wt: 07/12/2022 92.4 kg (203 lb 12.8 oz) 10/12/2022 92.1 kg (203 lb) 04/16/2023 99.7 kg (219 lb 12.8 oz) BMI: 37 5% -10% Weight loss: 10-21# Last Wt 04/16/23 : 99.7 kg (219 lb 12.8 oz) 5% weight loss = 209 lbs, 10% weight loss = 198 lbs READINESS TO LEARN Cognitive ability: Alert and oriented Motivation to learn: Interested Family support: Unable to assess - Family not present Instruction provided to: Patient Patient learns best by: Individual Instruction Factors affecting learning: None Physical limitations affecting learning: None Stage of Change: Action Nutrition Diagnosis: Overweight Obesity, related to; decreased energy needs and food/nutrition - related knowledge deficit, as evidenced by BMI above normative standard for age and gender Calories Needed for Current Weight: Resting Metabolic Rate: 1706*1.2 Calories for Weight Loss: 1500 kcal Nutrition Intervention: I discussed benefits and discussed the following barber components of the Mediterranean Diet: -- Include generous amounts of non-starchy vegetables --Reviewed 1/2 cup servings of whole grains, potatoes, dried beans --Role of nuts/ seeds in the diet --Limit processed foods --Use olive oil as the primary source of fat --Moderate consumption of low fat dairy products --Consume at least 6 ounces fish or shellfish at least twice weekly --Limit red meat to twice month, no more than once weekly. --May use chicken or turkey for protein --Use beans/ lentils as a source of protein (up to 1 cup per day) -- emphasized choosing plant foods often (vegetables, nuts/seeds, olives/olive oil, fruit, whole/ancient grains) --including protein sources at meal (fish or lean meats, beans/lentils/nuts/seeds/yogurt) -- choosing less fried food/processed food when ready/able --alternatives to sugary beverages --plate method for portioning meals/food groups without tracking calories/fat/carbs/pro --using meal replacements or pre-made balanced snacks as needed to avoid skipping meals --how to put together balanced quick meals without cooking if needed --food journaling for accountability as an option Awareness of Internal Regulation of Hunger: --Stressed capabilities with internal regulation of food intake to support energy balance --Eating regular meals/snacks every 3-5 hours for internal regulation and avoiding the dieting mentality for detention behavior change --Discussed tactics for getting enough to eat --Reviewed hunger/fullness scale Discussed the following regarding carbohydrate intake: --carbohydrate sources and effect on blood sugars, insulin resistance and weight managment --basic carbohydrate counting including eating consistent carbohydrates at each meal, goal is 30-45grams of carb at each meal --food label reading for carbohydrate and fiber --portion sizes of commonly eaten carb foods --avoiding regular soda, juice, and fried foods --Plate Method: at least 1/2 plate filled with low carb vegetables, 1/4 plate with a protein food that is not fried, 1/4 plate high fiber starch/carb --Consider checking check BG 2 hours after eating to see response of blood sugar to food choices and insulin dose used Educational Materials provided: [facility] Mediterranean Booklet Nutrition Monitoring & Evaluation: Dietitian Goals: Weight Reduction of 5-10% within 6 months Criteria: Weight Patient Stated Goals at today's visit: Follow low carb Mediterranean meal planning guidelines limiting carbs to 30-45 grams per meal coming from high fibrous, high quality sources when possible Track daily steps, aim for 7000+ steps a day Consider adding 2-3 days a week of resistance activities, see sheet provided Balance meals/snacks with source of lean protein, fiber and healthy fats for appetite control and satiety (add fresh fruit with breakfast and lunch meal, add protein with lunch meal) Adherence Potential to Goals: Good Need for Follow up: as needed Referred by: Ed Vaz APRN.CROSSBOW MAKER Consult Billing Type/Increments: Initial Assessment/15 minutes, 2 increment(s), 30 minutes Start time: 10:00 AM End time: 10:30 AM My final report will be communicated back to the requesting physician by way of shared medical record. Signed by: Cadence Camejo RD documented in this encounterUniversity Hospitals Cleveland Medical Center04-08-2024 Telephone encounter Note * Telephone Encounter - Susana Batista MA - 05/14/2023 2:54 PM EDT Images from the original note were not included. PA denied. [facility]04-08-2024 Miscellaneous Notes* Telephone Encounter - Susana Batista MA - 05/14/2023 2:54 PM EDT Images from the original note were not included. PA denied. * Telephone Encounter - Susana Batista MA - 05/14/2023 2:53 PM EDT PA initiated for Lomaira 8mg via Covermymeds. Barber: [email or web address] documented in this encounterUniversity Hospitals Cleveland [facility] Center04-08-2024 Telephone encounter Note * Telephone Encounter - Susana Batista MA - 05/14/2023 2:53 PM EDT PA initiated for Lomaira 8mg via Covermymeds. Barber: [email or web address] [facility]04-03-2024 Miscellaneous Notes* Telephone Encounter - Tate Gonzalez - 05/09/2023 12:31 PM EDT Left voicemail and mychart to schedule with a eye technician * Telephone Encounter - Ed Vaz APRN.CNP - 05/09/2023 11:54 AM EDT Please help patient schedule with eye technician for weight. Thank you, Ed Vaz APRN.JUAN M documented in this encounterUniversity Hospitals Cleveland Medical Center03-21-2024 History of Present illness Narrative* Ed Vaz APRN.CNP - 04/26/2023 10:30 AM EDT Images from the original note were not included. Endocrinology Weight Management Follow Up This Team Access Model visit is a virtual encounter and Richard Smith has consented to this virtual encounter. This is a virtual visit using [employer] Zoom Video Visit. It is a required patient-providerinteraction for the medical decision making as documented below. I have communicated my name and active licensure. The patient's identity and physical location wereverified at the time of this visit. Either the patient or their legal patient representative has been informed of the risks and benefits of -- and alternatives to -- treatment through a remote evaluation andconsents to proceed with the evaluation remotely. 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, anxiety (no medication) Control oral Patient's last appt in this department for weight loss: 10/12/2022 , Metformin not working, changeddiet but weight is not moving Current weight loss medication: none but taking Metformin for PCOS Side effects of treatment: none Weight trend: up Weight Graph: Weight Readings: Last 11 Encounter Wt Readings: Date: Wt: 04/16/2023 99.7 kg (219 lb 12.8 oz) 10/12/2022 92.1 kg (203 lb) 07/12/2022 92.4 kg (203 lb 12.8 oz) 06/05/2022 94.3 kg (208 lb) 12/18/2021 105.4 kg (232 lb 5.8 oz) 12/18/2021 105.4 kg (232 lb 6.4 oz) 09/19/2021 99.8 kg (220 lb) 08/19/2021 100.6 kg (221 lb 12.8 oz) 08/03/2021 102.3 kg (225 lb 9.6 oz) 08/02/2021 101 kg (222 lb 9.6 oz) 04/05/2021 102.7 kg (226 lb 8 oz) Weight Loss Medication: None Medical history pertaining to weight loss medications: History of pancreatitis or gallstones: no History of kidney stones: no History of seizures: no Current opiate use: no History of glaucoma: no History of CAD or uncontrolled HTN: no Personal/family history of MEN2, MTC: no Method of contraception if woman of child bearing age: oral contraceptive Past experience with AOM: Bupropion: no Naltrexone: no Topiramate: no Phentermine: no GLP-1: ozempic not covered , got to the 0.25 mg but when up the dose could not go pass Metformin: currently Qsymia: no Contrave: no Orlistat: no Diet: Have not doing protein shake Had cut back on the sugar No fast food Breakfast: oatmeal or protein shake Lunch: salad Dinner: chicken /steak with broccoli Drink: water 2 x regular water bottle through out the day or maybe more Alcohol: no Appetite: Struggle Exercise / Physical Activity: Go to the gym stair climber every other day 30 minutes to 1 hour Or at home (sit ups an crunches) Sleep: Does 3rd shift Sleep schedule is off 10 pm to 6 AM Fall asleep around 7 AM Can be up the rest of night on of day Level of Stress: Is okay Social: 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 BMI elevated, No FM history of diabetes. 08/2019: Hba1c 5.3 Seasonal allergies flonase. Shingles outbreak PAST SURGICAL HISTORY Procedure Laterality Date CHOLECYSTECTOMY HX 08/2019 NONE 05/2010 FAMILY HISTORY Problem Relation Age of Onset COPD Maternal Grandfather other (smoker) Maternal Grandfather Hypertension Maternal Grandmother Lipids Maternal Grandmother Anxiety disorder Mother Cancer Paternal Grandfather bone? Anxiety disorder Sister Social History Tobacco Use Smoking status: Never Smokeless tobacco: Never Vaping Use Vaping Use: Never used Substance Use Topics Alcohol use: Not Currently Comment: social Drug use: No Allergies: Imitrex [Sumatripta* Other: See Comments Comment:Patient stated her jaw locked up and hurt really bad Current Outpatient Medications on File Prior to Visit Medication Sig metFORMIN ER (GLUCOPHAGE XR) 500 mg 24 hr tablet Take 1 tablet by mouth twice daily before meals. Drospirenone-Ethinyl Estradiol (LESLIE 28) 3-0.02 mg per tablet Take 1 tablet by mouth once daily for 28 days. semaglutide (OZEMPIC) 0.25 mg or 0.5 mg(2 mg/1.5 mL) pen Inject 0.5 mg subcutaneously one time a week. Lactobacillus acidophilus (FLORAJEN ACIDOPHILUS) 20 billion cell cap Take 1 capsule by mouth once daily. ibuprofen (MOTRIN ORAL) Take by mouth. cetirizine (ZYRTEC) 10 mg tablet Take 1 tablet by mouth once daily. fluticasone (FLONASE) 50 mcg/actuation nasal spray Use 2 Sprays in each nostril once daily. Rinse mouth after use. No current facility-administered medications on file prior to visit. Answers submitted by the patient for this visit: Core Review of Systems (Submitted on 04/26/2023) Fever : No Night sweats: Yes Recent unintentional weight change: No Nasal Congestion: No Hearing Loss: No Vision Disturbance: No A cough: Yes Difficulty Breathing?: No Chest pain: No Irregular heartbeat: No Leg Swelling: No Nausea: No Diarrhea: No Black tarry stools: No Difficulty Urinating?: No Awaken at Night More Than Once to Urinate?: Yes Joint pain or stiffness: No Muscle aches: No Leg or Foot Discomfort at Night?: Yes A rash: No Dizziness: Yes Headaches: Yes Memory Loss: No Seizures: No VIDEO PHYSICAL EXAMINATION: GENERAL: alert and appropriate, in no distress, well-hydrated, well nourished, and happy, smiling, interactive Previous Laboratory Results: Latest Ref Rng & Units 01/11/2022 12/18/2021 12/18/2021 BMP Glucose 74 - 99 mg/dL 113 101 BUN 7 - 21 mg/dL 13 15 Creatinine 0.58 - 0.96 mg/dL 0.86 0.71 Sodium 136 - 144 mmol/L 139 140 Potassium 3.7 - 5.1 mmol/L 3.8 4.4 Chloride 97 - 105 mmol/L 104 107 CO2 22 - 30 mmol/L 21 24 Anion Gap 9 - 18 mmol/L 14 9 Calcium 8.5 - 10.2 mg/dL 8.3 8.8 EGFR >=60 mL/min/1.73m 95 119 Lab Results Component Value Date HBA1C 5.3 01/11/2022 HBA1C 5.2 10/25/2020 HBA1C 5.2 06/16/2020 HBA1C 5.3 09/01/2019 TSH Date Value Ref Range Status 01/11/2022 3.110 0.270 - 4.200 mIU/L Final Comment: If the patient is , TSH reference range varies by gestational period: First Trimester (weeks 9-12): 0.180-2.990 mIU/L Second Trimester: 0.110-3.980 mIU/L Third Trimester: 0.480-4.710 mIU/L Loki Montero et al. A Practical Approach for the Verifications and Determination of Site- and Trimester-Specific Reference Intervals for Thyroid Function tests in . Thyroid, 2019:29:3:412-420.Clifford E, et al. 2017 Guidelines of the [place] Thyroid Association for the Diagnosis and Management of Thyroid Disease during and the . Thyroid, 2017:27:3:315-389. Recent Lab Values 10/25/2020 01/11/2022 LDL 48 107 HDL 20 28 Comment for LDL at 9:51 AM on 10/25/2020: <100 mg/dL, Optimal 100-129 mg/dL, Near optimal/above optimal 130-159 mg/dL, Borderline high 160-189 mg/dL, High >189 mg/dL, Very high Secondary prevention optimal LDL Cholesterol levels are recommended to be < 70 mg/dL Comment for LDL at 8:53 AM on 01/11/2022: <100 mg/dL, Optimal 100-129 mg/dL, Near optimal/above optimal 130-159 mg/dL, Borderline high 160-189 mg/dL, High >189 mg/dL, Very high Secondary prevention optimal LDL Cholesterol levels are recommended to be < 70 mg/dL Comment for HDL at 9:51 AM on 10/25/2020: 40-59 mg/dL, Acceptable >59 mg/dL, High: Negative risk factor for coronary heart disease <40 mg/dL, Low: Positive risk factor for coronary heart disease Comment for HDL at 8:53 AM on 01/11/2022: 40-59 mg/dL, Acceptable >59 mg/dL, High: Negative risk factor for coronary heart disease <40 mg/dL, Low: Positive risk factor for coronary heart disease CrCl cannot be calculated (Patient's most recent lab result is older than the maximum 180 days allowed.). Impression/Recommendations: Encounter Diagnosis ICD-10-CM 1. Class 2 obesity with body mass index (BMI) of 37.0 to 37.9 in adult, unspecified obesity type, unspecified whether serious comorbidity present E66.9 Z68.37 Patient comes today for treatment of overweight/obesity and its comorbidities. Last Wt 04/16/23 : 99.7 kg (219 lb 12.8 oz) 5% weight loss = 209 lbs, 10% weight loss = 198 lbs Plan: Download Ch[employer] Shorts junior to track your daily calorie intake (food and drinks). Send me your daily intake in 2 weeks After that we can start phentermine 8 mg daily before your first meal See me in 6 weeks Below is information on phentermine You do need to meet 5% of weight loss on this medication which is around 10 lb for you so 209 lb. - Exercise recommendations: Recommend gradual increase in exercise. Goal is 150+ minutes moderate-intensity exercise per week + strength training/resistance exercise 2 days per week. - Recommend 7-9 hours sleep nightly, regular sleep pattern - Stress management Follow up in 6 weeks Medical Decision Making: Problems: Moderate: 1+ chronic illnesses with change Risk: Moderate: Drug management Medical Decision Making Level: 4 - Moderate Patient to continue to follow up with PCP and with other consultants regarding other medical problems. Ed Vaz APRN.[facility]AN [facility] Endocrinology and Metabolism [place] [facility] documented in this encounterUniversity Hospitals Cleveland Medical Center03-11-2024 History of Present illness Narrative* Morelia Chance PA-C - 04/16/2023 2:18 PM EDT 04/16/2023 Patient presents with: Cough: Cough, fever and chest congestion x 2 days SUBJECTIVE: This is a 27 year old that is here today for Complaint(s) of cough and congestion x 2 days. Notes associated fever, Tmx 101. Having body aches and WILDER. Thinks there may be some wheezing and rattling in the chest. Having left ear pain. Denies chest pain, SOB, vomiting, diarrhea, calf pain, leg swelling.. Did not have a flu shot this year. Non-smoker. + flu A expsoure- son. Patient denies chance of . PAST MEDICAL HISTORY Diagnosis Date Anxiety Calculus of gallbladder without biliary obstruction 08/10/2019 Cervical intraepithelial neoplasia grade 1 2016 Elevated glucose 09/01/2019 Patient had elevated glucose on last BMP. BMI elevated, No FM history of diabetes. 08/2019: Hba1c 5.3 Seasonal allergies flonase. Shingles outbreak ALLERGIES Imitrex [Sumatriptan] MEDICATIONS Current Outpatient Medications Medication Sig metFORMIN ER (GLUCOPHAGE XR) 500 mg 24 hr tablet Take 1 tablet by mouth twice daily before meals. Drospirenone-Ethinyl Estradiol (LESLIE 28) 3-0.02 mg per tablet Take 1 tablet by mouth once daily for 28 days. Lactobacillus acidophilus (FLORAJEN ACIDOPHILUS) 20 billion cell cap Take 1 capsule by mouth once daily. ibuprofen (MOTRIN ORAL) Take by mouth. fluticasone (FLONASE) 50 mcg/actuation nasal spray Use 2 Sprays in each nostril once daily. Rinse mouth after use. semaglutide (OZEMPIC) 0.25 mg or 0.5 mg(2 mg/1.5 mL) pen Inject 0.5 mg subcutaneously one time a week. (Patient not taking: Reported on 04/16/2023) cetirizine (ZYRTEC) 10 mg tablet Take 1 tablet by mouth once daily. No current facility-administered medications for this visit. SOCIAL HISTORY Social History Tobacco Use Smoking status: Never Smokeless tobacco: Never Vaping Use Vaping Use: Never used Substance Use Topics Alcohol use: Not Currently Comment: social Drug use: No REVIEW OF SYSTEMS See HPI OBJECTIVE: BP 106/74 Pulse 107 Temp 37.2 C (98.9 F) (Tympanic) Resp 18 Wt 99.7 kg (219 lb 12.8 oz) LMP 06/19/2022 (Approximate) SpO2 97% BMI 37.53 kg/m APPEARANCE alert, in no acute distress, well-hydrated, well nourished. EYES PERRLA, conjunctiva and sclera normal. EARS External ears normal, canals clear. Right tM normal. Left TM bulging, erythematous, dull NOSE/SINUS Nares normal. Septum midline. Mucosa normal. No drainage or sinus tenderness. THROAT normal, no erythema NECK Supple, no adenopathy; HEART RRR with normal S1 and S2, LUNG clear to auscultation, No wheezing, rhonchi, rales. ASSESSMENT/PLAN: 1. Acute cough - ICD9: 786.2, ICD10: R05.1 (primary diagnosis) Rapid flu A positive in office Supportive care with fluids, rest, tylenol/motrin Reviewed red flags and when to seek care sooner. - INFLUENZA A&B MOLECULAR (POC) - OSELTAMIVIR 75 MG CAPSULE 2. Exposure to the flu - ICD9: V01.79, ICD10: Z20.828 As above - INFLUENZA A&B MOLECULAR (POC) - OSELTAMIVIR 75 MG CAPSULE 3. Acute otitis media, left - ICD9: 382.9, ICD10: H66.92 - Will begin treatment with as per antibiotic as written, see orders - Supportive care with plenty of fluids, rest, and analgesia prn. - Follow up in 3-5 days if symptoms persist or worsen. - AMOXICILLIN 875 MG TABLET The patient indicates understanding of these issues and agrees with the plan. Morelia Chance PA-C documented in this encounterUniversity Hospitals Cleveland Medical Center09-07-2023 Miscellaneous Notes* Telephone Encounter - Terri Drake - 10/12/2022 9:24 AM EDT Called patient lvm to assist with scheduling endo eye technician and psychology appointment. * Telephone Encounter - Ed Vaz APRN.CNP - 10/12/2022 9:09 AM EDT Please schedule patient with eye technician (Mauricio) and Endocrine Psychologist. Follow up with me in 2 months for weight. Ed Vaz APRN.CNP documented in this encounterUniversity Hospitals Cleveland Medical Center09-07-2023 Miscellaneous Notes* Telephone Encounter - Ed Vaz APRN.CNP - 10/12/2022 8:36 AM EDT Please schedule patient with eye technician (Mauricio) and Endocrine Psychologist. Follow up with me in 2 months for weight. Ed Vaz APRN.CNP documented in this encounterUniversity Hospitals Cleveland Medical Center09-07-2023 History of Present illness Narrative* Ed Vaz APRN.CNP - 10/12/2022 8:30 AM EDT Images from the original note were not included. Endocrinology Weight Management Follow Up This Team Access Model visit is a virtual encounter and Richard Smith has consented to this virtual encounter. This is a virtual visit using Slicebooks video visit. It is a required patient-provider interaction for the medical decision making as documented below. I have communicated my name and active licensure. The patient's identity and physical location wereverified at the time of this visit. Either the patient or their legal patient representative has been informed of the risks and benefits of -- and alternatives to -- treatment through a remote evaluation andconsents to proceed with the evaluation remotely. Subjective History of Present Illness: Age: [age] year old Patient comes today for follow up of weight management. 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 JUNIE with Dr. Mills on 07/12/2022 = Taking Metformin 500 mg 1 twice a day - feel okay on this , still have binge eating. Through out the day grabbing food. Usually cleaning or at work , grab a snack, active and more hungry. = Breakfast a bowl of cereal , lunch sandwich , dinner chicken or steak or side veggies (grabbing snack in between her meals, chips) = Drink water , no alcohol , no smoking = Ozempic was not covered , was able to take the the 0.25 mg dose = Saw eye technician 2 years ago = Cook during the week on the go Patient currently denies a history of NV,problems with heart valves,arrhythmias.She also denies being on any opioid based pain medications,denies a history of seizure d/o or been diagnosed with any eating disorders (including anorexia or bulimia).Patient also denies being diagnosed with any psych d/o and denies being on any psych meds. Patient also denies a personal or family history of medullarythyroid cancer/MEN syndrome or personal history of pancreatitis. Patient also denies any history ofblood clotting disorders. Denies history of drug or alcohol abuse. Currently denies any other endocrine related complaints. Weight Graph: Weight Readings: Last 11 Encounter Wt Readings: Date: Wt: 10/12/2022 92.1 kg (203 lb) 07/12/2022 92.4 kg (203 lb 12.8 oz) >. 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 BMI elevated, No FM history of diabetes. 08/2019: Hba1c 5.3 Seasonal allergies flonase. Shingles outbreak PAST SURGICAL HISTORY Procedure Laterality Date CHOLECYSTECTOMY HX 08/2019 NONE 05/2010 FAMILY HISTORY Problem Relation Age of Onset COPD Maternal Grandfather other (smoker) Maternal Grandfather Hypertension Maternal Grandmother Lipids Maternal Grandmother Anxiety disorder Mother Cancer Paternal Grandfather bone? Anxiety disorder Sister Social History Tobacco Use Smoking status: Never Smokeless tobacco: Never Vaping Use Vaping Use: Never used Substance Use Topics Alcohol use: Not Currently Comment: social Drug use: No Allergies: Imitrex [Sumatripta* Other: See Comments Comment:Patient stated her jaw locked up and hurt really bad Current Outpatient Medications on File Prior to Visit Medication Sig metFORMIN ER (GLUCOPHAGE XR) 500 mg 24 hr tablet Take 1 tablet by mouth twice daily before meals. Drospirenone-Ethinyl Estradiol (LESLIE 28) 3-0.02 mg per tablet Take 1 tablet by mouth once daily for 28 days. semaglutide (OZEMPIC) 0.25 mg or 0.5 mg(2 mg/1.5 mL) pen Inject 0.5 mg subcutaneously one time a week. Lactobacillus acidophilus (FLORAJEN ACIDOPHILUS) 20 billion cell cap Take 1 capsule by mouth once daily. ibuprofen (MOTRIN ORAL) Take by mouth. cetirizine (ZYRTEC) 10 mg tablet Take 1 tablet by mouth once daily. fluticasone (FLONASE) 50 mcg/actuation nasal spray Use 2 Sprays in each nostril once daily. Rinse mouth after use. No current facility-administered medications on file prior to visit. Answers submitted by the patient for this visit: Endocrine Review of Systems (Submitted on 10/12/2022) Fatigue: Yes Night Sweats: Yes Recent Unintentional Weight Change: No Skin Color Changes: No Post-Nasal Drip: No Thyroid Pain (lower neck): No Trouble Swallowing: No Vision Disturbance: No Chest Pain: Yes Leg Swelling: No Blood Clots?: No Leg Pain while walking?: Yes Difficulty Breathing?: No Heartburn: No Nausea: No Vomiting?: No Diarrhea: No Constipation: No Abdominal Pain: Yes Bone Pain?: No Muscle Aches: Yes Muscle Weakness: No Joint Pain or Stiffness: No Headaches: Yes Dizziness: Yes Numbness?: Yes Urgency to Urinate?: Yes Increased Urination?: No Slow or Small Urine Stream?: No Are your menstrual cycles regular?: No Are your menstrual cycles irregular?: No Have your menstrual cycles stopped?: No Flushing?: No Hot Flashes?: No Increased Thirst: Yes Change in Body Hair?: Yes Cold Intolerance: No Heat Intolerance?: No VIDEO PHYSICAL EXAMINATION: GENERAL: alert and appropriate, in no distress, well-hydrated, well nourished, and happy, smiling, interactive Previous Laboratory Results: Glucose (mg/dL) Date Value 01/11/2022 113 12/18/2021 101 10/25/2020 107 06/16/2020 92 Potassium (mmol/L) Date Value 01/11/2022 3.8 10/25/2020 3.7 Sodium (mmol/L) Date Value 01/11/2022 139 12/18/2021 140 10/25/2020 141 06/16/2020 141 Chloride (mmol/L) Date Value 01/11/2022 104 12/18/2021 107 10/25/2020 109 06/16/2020 106 CO2 (mmol/L) Date Value 01/11/2022 21 12/18/2021 24 10/25/2020 23 06/16/2020 21 Creatinine (mg/dL) Date Value 01/11/2022 0.86 12/18/2021 0.71 10/25/2020 0.94 06/16/2020 0.82 BUN (mg/dL) Date Value 01/11/2022 13 12/18/2021 15 10/25/2020 15 06/16/2020 12 Anion Gap (mmol/L) Date Value 01/11/2022 14 12/18/2021 9 10/25/2020 9 06/16/2020 14 Calcium (mg/dL) Date Value 10/25/2020 8.3 06/16/2020 9.1 Calcium, Total (mg/dL) Date Value 01/11/2022 8.3 12/18/2021 8.8 eGFR- (no units) Date Value 10/25/2020 >60 06/16/2020 >60 eGFR-All Other Races (.) Date Value 10/25/2020 >60 06/16/2020 >60 Estimated Glomerular Filtration Rate (mL/min/1.73m ) Date Value 01/11/2022 95 12/18/2021 119 ALT Date Value 01/11/2022 32 U/L 12/18/2021 30 U/L 12/18/2021 Comment: Unable to assay due to interference from hemolysis. Suggest reorder as clinically indicated. 10/25/2020 25 U/L 06/16/2020 30 U/L 05/28/2020 41 U/L Cholesterol, Total Date Value Ref Range Status 01/11/2022 196 <200 mg/dL Final Comment: <200 mg/dL, Desirable 200-239 mg/dL, Borderline high >239 mg/dL, High HDL Cholesterol Date Value Ref Range Status 01/11/2022 28 (L) >39 mg/dL Final Comment: 40-59 mg/dL, Acceptable >59 mg/dL, High: Negative risk factor for coronary heart disease <40 mg/dL, Low: Positive risk factor for coronary heart disease LDL Cholesterol Date Value Ref Range Status 01/11/2022 107 (H) <100 mg/dL Final Comment: <100 mg/dL, Optimal 100-129 mg/dL, Near optimal/above optimal 130-159 mg/dL, Borderline high 160-189 mg/dL, High >189 mg/dL, Very high Secondary prevention optimal LDL Cholesterol levels are recommended to be < 70 mg/dL Triglyceride Date Value Ref Range Status 01/11/2022 305 (H) <150 mg/dL Final Comment: <150 mg/dL, Normal 150-199 mg/dL, Borderline high 200-499 mg/dL, High >499 mg/dL, Very high Hemoglobin A1C (%) Date Value 01/11/2022 5.3 10/25/2020 5.2 06/16/2020 5.2 09/01/2019 5.3 TSH Date Value Ref Range Status 01/11/2022 3.110 0.270 - 4.200 mIU/L Final Comment: If the patient is , TSH reference range varies by gestational period: First Trimester (weeks 9-12): 0.180-2.990 mIU/L Second Trimester: 0.110-3.980 mIU/L Third Trimester: 0.480-4.710 mIU/L Loki Montero et al. A Practical Approach for the Verifications and Determination of Site- and Trimester-Specific Reference Intervals for Thyroid Function tests in . Thyroid, 2019:29:3:412-420.Clifford E, et al. 2017 Guidelines of the [place] Thyroid Association for the Diagnosis and Management of Thyroid Disease during and the . Thyroid, 2017:27:3:315-389. Free T4 Date Value Ref Range Status 01/11/2022 0.9 0.9 - 1.7 ng/dL Final Impression/Recommendations: Encounter Diagnosis ICD-10-CM 1. Class 1 obesity with body mass index (BMI) of 34.0 to 34.9 in adult, unspecified obesity type, unspecified whether serious comorbidity present E66.9 CONSULT TO ENDOCRINE PSYCHOLOGY (WEIGHT MANAGEMENT) Z68.34 ENDOCRINOLOGY DIETITIAN VISIT (MNT) Patient comes today for weight management and its comorbidities treatment. Patient is taking Metformin and has not seen any benefits in weight change nor change in binge eating behavior. Weight did not increase nor decrease though. It appears that she is having to grab snacks through out the day. She report not eating a huge amount of food in one sitting or purging. Diet recall shows meals are not balanced which can contribute to feeling hungry through out the day. At this time we will work on changing this in addition to changing behaviors. Consult orders for eye technician and psychology today. Patient is on control. Next visit can consider changing medication but at this time need to see if lifestyle change will help. Recommendations are to have balance meals. If on the go have protein shake. When you are cooking dinner make extra portion so you can have it for lunch to take to work. Your meal should include balance portion of veggies, lean protein, and complex carbohydrates. Goals: -- Our overall goal of 5-10% weight loss over 6 months -- Continue lifestyle changes - changing eating, sleeping, and behavior habits -- Continued appetite suppression and steady weight loss Diet & Appetite control -- Patient has not met with eye technician to establish a nutritional plan specific to patient -- Options to create a caloric deficit include Mediterranean diet, low carbohydrate diet, meal replacements, MyPlate (20% fruits, 30% vegetables, 20% protein, 30% grains, dairy serving). -- Portion control, eating slowly -- Reduce and/or remove processed foods from diet ---No skipping meals to avoid severe hunger, which can contribute to larger portions, overeating, less healthy dietary choices, etc. -- Target water intake of at least 64oz daily Self-Monitoring Weight at least 1x/week. Food journals / trackers (Food log, My Fitness Pal). Activity journals / trackers ([employer] [place] watch, Fit Bit, [employer] vivofit, Striiv). Exercise / Physical Activity -- Discussed the role of exercise on weight loss and maintenance. ---Currently walking cardio 30 minutes every other day -- Patient does not to see an poultry killer yet -- Physical activity as tolerated for a target 150 minutes weekly with a combination of aerobic andresistance exercise Sleep -- Discussed the importance of sleep hygiene -- Discussed importance of sleeping well in regard to weight and overall health Stress -- Discussed the effect of stress and its relationship with weight gain. -- Stress management is very important - Pharmacotherapy Continue Metformin 500 mg twice a day Follow up in 2 months Medical Decision Making: Problems: Moderate: 1+ chronic illnesses with change Risk: Moderate: Drug management Medical Decision Making Level: 4 - Moderate Patient to continue to follow up with PCP and with other consultants regarding other medical problems. Ed Vaz APRN.[facility] Endocrinology and Metabolism [place] [facility] documented in this encounterUniversity Hospitals Cleveland Medical Center06-27-2023 Miscellaneous Notes* Telephone Encounter - Lupe Grant MD - 08/01/2022 4:15 PM EDT PA re-done with IFG, PCOS as diagnosis. Lupe Grant MD * Telephone Encounter - Macy Bay - 08/01/2022 4:14 PM EDT Faxed prior auth forms to the [place] Department of Medicaid [phone] on 08/01. Macy Bay [facility] [place], [place] * Telephone Encounter - Rachael Posey Ma - 08/01/2022 3:12 PM EDT Ozempic IS NOT FDA-approved for pre-diabetes OR polycystic ovarian syndrome. It is only approved for T2DM. Any prior authorization/appeal will get administratively denied, because the diagnosis in the patient's history does not match the FDA-indication for this medication. I called and spoke to the patient and informed her of this, she understands the message. She states when she was on the 0.25 mg once a week, her [employer] approved this medication. She is not sure why it's getting denied now, and from looking at her chart, neither am I; one would think if it was going to be denied it would have been denied back when Dr. Lupe Grant prescribed the 0.25 mg dose in 03/2022. In light of this, patient would like to try going back down to the 0.25 mg dose and see if she can get it approved/refilled off the old approval; in this light, doctor would need to send new prescription to the linked pharmacy ([place], [place]). * Telephone Encounter - Macy Bay - 08/01/2022 2:08 PM EDT Patient called saying she needs the prior auth redone as it was put in for weight management and she says she's not just taking it for weight management. She is also taking the Ozempic for pre diabetes and for PCOS. Please follow up with patient. Thanks. Macy Bay [facility] [place], [place] documented in this encounterUniversity Hospitals Cleveland Medical Center06-20-2023 Miscellaneous Notes* Telephone Encounter - Rachael Posey Ma - 07/25/2022 12:09 PM EDT See other Slicebooks messages for encounter sent to Dr. Lupe Grant. documented in this encounterUniversity Hospitals Cleveland Medical Center06-20-2023 History of Present illness Narrative* Kami Barraza [facility] [place] - 07/25/2022 11:34 AM EDT Requested by: Kami Medication Requested: Ozempic Insurance Name: [employer] PA phone #: [phone] Status: Denied. Denial letter scanned into chart documented in this encounterUniversity Hospitals Cleveland Medical Center06-14-2023 Miscellaneous Notes* Telephone Encounter - Kalee Campos - 07/19/2022 11:50 AM EDT Patient called requesting a prior authorization for semaglutide (OZEMPIC) 0.25 mg or 0.5 mg(2 mg/1.5 mL) pen. Patient stated she was told it can take up to 3 weeks. Pharmacist at [facility] told pt they sent over forms to be completed by provider because they cannot fill prescriptions without the authorization. Patient can be contacted at [phone]. [facility] [place] [place] documented in this encounterUniversity Hospitals Cleveland Medical Center06-13-2023 Miscellaneous Notes* Telephone Encounter - Mariah Palencia RN - 07/18/2022 8:31 AM EDT Called patient but no answer; left detailed VM for patient about Ozempic and PA. Thanks, MICHELLE DíazN RN [facility] * Telephone Encounter - Lupe Grant MD - 07/17/2022 7:14 PM EDT Please let her know it's not ideal but it's ok.. She should really watch diet and exercise during this time. She can also try seeing if she can get/use a coupon online. Lupe Grant MD * Telephone Encounter - Rachana Gonzalez MA - 07/17/2022 2:04 PM EDT Pt would like to kow if it would be okay for her not be on Ozempic until the PA has been completed.The PA could take up to 3 weeks to be completed. Pt had the last dose last Sunday07/11/22. Rachana Gonzalez [employer] Endocrinology & Metabolism [place] [id number] documented in this encounterUniversity Hospitals Cleveland Medical Center06-07-2023 History of Present illness Narrative* Lupe Grant MD - 07/12/2022 11:51 AM EDT Endocrinology Follow-Up Progress Note CC: Weight management HPI: 26 y/o woman with PCOS, migraines, hepatic steatosis here for follow-up. She was recently diagnosed with PCOS by her DEBURRING AND TOOLING MACHINE OPERATOR. Menarche at age 11. Always regular but became irregular the last couple years. LMP April 2021. She has hair growth on face and also acne. She has a 4 y/o, no issues conceiving. The past few years were actively trying to become was unsuccessful. Her DEBURRING AND TOOLING MACHINE OPERATOR just started her on Leslie 2 weeks ago. Weight Hx: started gaining weight after COVID, depression, emotional eating. Previously 180 lbs andnow 232 lbs in Dec 2021. This is her weight max. Tried low carb diet, counting calories Goal weight: 180 lbs to start Interval History: last OV 02/23/2022. The time we started her on metformin 500 mg, increase to twice daily but then had nausea, cramping. Without nausea we started Ozempic for instead. For the first 2 injections, nausea, bloating, abdominal pain. Still on Leslie 28, no plans for future at this time, getting regular menses with this. Still some hair growth on chin, mild acne. Diet: cut back on sugar, carbs Breakfast - oatmeal, eggs Lunch - salad Dinner - meat and vegetable Drinks - water Snacks- none Exercise: goes to the gym, every other day, 30 - 1 hr. Walking. 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 Remaining 12 point ROS is otherwise negative PAST MEDICAL HISTORY Diagnosis Date Anxiety Calculus of gallbladder without biliary obstruction 08/10/2019 Cervical intraepithelial neoplasia grade 1 2016 Elevated glucose 09/01/2019 Patient had elevated glucose on last BMP. BMI elevated, No FM history of diabetes. 08/2019: Hba1c 5.3 Seasonal allergies flonase. Shingles outbreak PAST SURGICAL HISTORY Procedure Laterality Date CHOLECYSTECTOMY HX 08/2019 NONE 05/2010 Social History Tobacco Use Smoking status: Never Smokeless tobacco: Never Vaping Use Vaping Use: Never used Substance Use Topics Alcohol use: Not Currently Comment: social Drug use: No FAMILY HISTORY Problem Relation Age of Onset COPD Maternal Grandfather other (smoker) Maternal Grandfather Hypertension Maternal Grandmother Lipids Maternal Grandmother Anxiety disorder Mother Cancer Paternal Grandfather bone? Anxiety disorder Sister Current Outpatient Medications Medication Sig Dispense Refill semaglutide (OZEMPIC) 0.25 mg or 0.5 mg(2 mg/1.5 mL) pen Inject 0.25 mg subcutaneously one time a week. 1.5 mL 2 Lactobacillus acidophilus (FLORAJEN ACIDOPHILUS) 20 billion cell cap Take 1 capsule by mouth once daily. 30 capsule 0 ibuprofen (MOTRIN ORAL) Take by mouth. cetirizine (ZYRTEC) 10 mg tablet Take 1 tablet by mouth once daily. 30 tablet 0 fluticasone (FLONASE) 50 mcg/actuation nasal spray Use 2 Sprays in each nostril once daily. Rinse mouth after use. 1 Bottle 0 Drospirenone-Ethinyl Estradiol (LESLIE 28) 3-0.02 mg per tablet TAKE 1 TABLET BY MOUTH ONCE DAILY FOR 28 DAYS 28 tablet 2 No current facility-administered medications for this visit. ALLERGIES Allergen Reactions Imitrex [Sumatripta* Other: See Comments Patient stated her jaw locked up and hurt really bad Physical Exam: BP 116/81 Pulse 94 Wt 203 lb 12.8 oz (92.4kg) LMP 06/19/2022 Well appearing, NAD Lungs CTA b/l S1, S2 normal, RRR ,no m/g/r Abd soft, nt, nd No LE edema b/l Labs/Imaging: Component Latest Ref Rng & Units 12/18/2021 01/11/2022 Protein, Total 6.3 - 8.0 g/dL 7.1 Albumin 3.9 - 4.9 g/dL 4.3 Calcium 8.5 - 10.2 mg/dL 8.3 (L) Bilirubin, Total 0.2 - 1.3 mg/dL 0.3 Alkaline Phosphatase 34 - 123 U/L 87 AST 13 - 35 U/L 40 (H) 22 ALT 7 - 38 U/L 30 32 Glucose 74 - 99 mg/dL 113 (H) BUN 7 - 21 mg/dL 13 Creatinine 0.58 - 0.96 mg/dL 0.86 Sodium 136 - 144 mmol/L 139 Potassium 3.7 - 5.1 mmol/L 4.4 3.8 Chloride 97 - 105 mmol/L 104 CO2 22 - 30 mmol/L 21 (L) Anion Gap 9 - 18 mmol/L 14 eGFR >=60 mL/min/1.73m 95 Cholesterol, Total <200 mg/dL 196 Triglyceride <150 mg/dL 305 (H) HDL Cholesterol >39 mg/dL 28 (L) Non HDL Cholesterol <130 mg/dL 168 (H) Fasting Time hrs 12 VLDL Cholesterol <30 mg/dL 61 (H) TC:HDL Ratio <5.10 7.00 (H) LDL Cholesterol <100 mg/dL 107 (H) LDL:HDL Ratio <2.54 3.82 (H) Testosterone Free <0.13 - 1.06 ng/dL 1.89 (H) Testosterone 8 - 60 ng/dL 58 Hemoglobin A1C 4.3 - 5.6 % 5.3 Estimated Average Glucose mg/dL 105 DHEA-S 98.8 - 340.0 ug/dL 154.0 Hydroxyprogesterone <=206.00 ng/dL 70.27 Prolactin 4.5 - 26.8 ng/mL 18.1 TSH 0.270 - 4.200 mIU/L 3.110 Free T4 0.9 - 1.7 ng/dL 0.9 Free T3 2.3 - 4.1 pg/mL 2.9 T3 79 - 165 ng/dL 106 Microsomal Antibody <5.6 IU/mL 2.5 01/16/2022 TVUS Uterus size: 6.7 x 3.5 x 4.3 cm -Orientation: Anteverted -Myometrium: Normal sonographic appearance. -Endometrial echo complex: 6 mm Right ovary: 4.2 x 2.6 x 2.4 cm Normal sonographic appearance. Left ovary: 3.9 x 2.0 x 2.5 cm Normal sonographic appearance. Pelvis free fluid: No significant free fluid in the cul-de-sac. 12/18/2021 CT flank: No acute abnormality Hepatic steatosis Assessment/Plan: 1. Obesity, Class I, BMI 30-34.9 - ICD9: 278.00, ICD10: E66.9 (primary diagnosis) 2. IFG (impaired fasting glucose) - ICD9: 790.21, ICD10: R73.01 3. PCOS (polycystic ovarian syndrome) - ICD9: 256.4, ICD10: E28.2 C/b IFG, HLD, hepatic steatosis Not able to tolerate metformin due to nausea. She has been responding very well to Ozempic. We can increase the dose to 0.5mg qweek. She will continue to work on diet and exercise regimen. RTC 3 months Lupe Grant MD documented in this encounterUniversity [facility]als [facility]05-01-2023 History of Present illness Narrative* Lavern Lim MD - 06/05/2022 8:39 AM EDT Images from the original note were not included. Lavern Lim MD Interventional Cardiology [facility] [address], [place] [address] [phone] Chief Complaint Patient presents with: Consult HISTORY OF PRESENT ILLNESS: Ms. Smith is a 27 year old female seen in my office today for assessment management of hyperlipidemia with high triglycerides and low HDL patient is completely asymptomatic diagnosed with elevated glucose started on semaglutide in March Lipid profile revealed triglyceride of 305 with total cholesterol of 196 HDL of 28 Patient is not hypertensive but she is she did have history of preeclampsia with her first required no medication Lead sedentary lifestyle No angina No symptoms or signs of congestive heart failure No family history of premature coronary artery disease EKG shows normal sinus rhythm with a heart rate of 82 low voltage QRS complex with no abnormality Cardiac Risk Factors hyperlipidemia, diabetes PAST MEDICAL HISTORY Diagnosis Date Anxiety Calculus of gallbladder without biliary obstruction 08/10/2019 Cervical intraepithelial neoplasia grade 1 2016 Elevated glucose 09/01/2019 Patient had elevated glucose on last BMP. BMI elevated, No FM history of diabetes. 08/2019: Hba1c 5.3 Seasonal allergies flonase. Shingles outbreak PAST SURGICAL HISTORY Procedure Laterality Date CHOLECYSTECTOMY HX 08/2019 NONE 05/2010 FAMILY HISTORY Problem Relation Age of Onset COPD Maternal Grandfather other (smoker) Maternal Grandfather Hypertension Maternal Grandmother Lipids Maternal Grandmother Anxiety disorder Mother Cancer Paternal Grandfather bone? Anxiety disorder Sister Social History Tobacco Use Smoking status: Never Smokeless tobacco: Never Vaping Use Vaping Use: Never used Substance Use Topics Alcohol use: Not Currently Comment: social Drug use: No ALLERGIES Allergen Reactions Imitrex [Sumatripta* Other: See Comments Patient stated her jaw locked up and hurt really bad Medications: Current Outpatient Medications Medication Sig Dispense Refill semaglutide (OZEMPIC) 0.25 mg or 0.5 mg(2 mg/1.5 mL) pen Inject 0.25 mg subcutaneously one time a week. 1.5 mL 2 Drospirenone-Ethinyl Estradiol (LESLIE 28) 3-0.02 mg per tablet TAKE 1 TABLET BY MOUTH ONCE DAILY FOR 28 DAYS 28 tablet 2 Lactobacillus acidophilus (FLORAJEN ACIDOPHILUS) 20 billion cell cap Take 1 capsule by mouth once daily. 30 capsule 0 ibuprofen (MOTRIN ORAL) Take by mouth. cetirizine (ZYRTEC) 10 mg tablet Take 1 tablet by mouth once daily. 30 tablet 0 fluticasone (FLONASE) 50 mcg/actuation nasal spray Use 2 Sprays in each nostril once daily. Rinse mouth after use. 1 Bottle 0 No current facility-administered medications for this visit. Review of Systems Constitutional: Negative for chills, diaphoresis, fever, malaise/fatigue and weight loss. HENT: Negative for congestion, ear discharge, ear pain, hearing loss, nosebleeds, sinus pain, sore throat and tinnitus. Eyes: Negative for blurred vision, double vision, photophobia, pain, discharge and redness. Respiratory: Negative for cough, hemoptysis, sputum production, shortness of breath, wheezing and stridor. Cardiovascular: Negative for chest pain, palpitations, orthopnea, claudication, leg swelling and PND. Gastrointestinal: Negative for abdominal pain, blood in stool, constipation, diarrhea, heartburn, melena, nausea and vomiting. Genitourinary: Negative for dysuria, flank pain, frequency, hematuria and urgency. Musculoskeletal: Negative for back pain, falls, joint pain, myalgias and neck pain. Skin: Negative for itching and rash. Neurological: Negative for dizziness, tingling, tremors, sensory change, speech change, focal weakness, seizures, loss of consciousness, weakness and headaches. Endo/Heme/Allergies: Negative for environmental allergies and polydipsia. Does not bruise/bleed easily. Psychiatric/Behavioral: Negative for depression, hallucinations, memory loss, substance abuse and suicidal ideas. The patient is not nervous/anxious and does not have insomnia. Physical Examination: Vitals:BP 110/84 Pulse 91 Wt 208 lb (94.3kg) SpO2 97% LMP 05/13/2022 BP w/Orthostatic Vitals Date and Time Orthostatic BP Orthostatic Pulse BP Pulse BP Position BP Site BP Cuff Size 06/05/22 0815 -- -- 110/84 91 Sitting Right Arm Large Adult Last 2 Encounter Wt Readings: Date: Wt: 06/05/2022 94.3 kg (208 lb) 12/18/2021 105.4 kg (232 lb 5.8 oz) Physical Exam Constitutional: General: She is not in acute distress. Appearance: She is not diaphoretic. HENT: Head: Normocephalic and atraumatic. Right Ear: External ear normal. Left Ear: External ear normal. Nose: Nose normal. Mouth/Throat: Pharynx: Oropharynx is clear. Eyes: General: Right eye: No discharge. Left eye: No discharge. Conjunctiva/sclera: Conjunctivae normal. Pupils: Pupils are equal, round, and reactive to light. Cardiovascular: Rate and Rhythm: Normal rate and regular rhythm. Heart sounds: Normal heart sounds, S1 normal and S2 normal. No murmur heard. No friction rub. No gallop. No S3 or S4 sounds. Pulmonary: Effort: Pulmonary effort is normal. No respiratory distress. Breath sounds: Normal breath sounds. No wheezing or rales. Chest: Chest wall: No tenderness. Musculoskeletal: General: Normal range of motion. Cervical back: Normal range of motion and neck supple. Skin: General: Skin is warm and dry. Neurological: Mental Status: She is alert and oriented to person, place, and time. Psychiatric: Mood and Affect: Mood normal. Thought Content: Thought content normal. Pertinent Labs: CBC: Hemoglobin (g/dL) Date Value 12/18/2021 13.7 05/28/2020 14.9 Hematocrit (%) Date Value 12/18/2021 40.4 05/28/2020 43.7 WBC (k/uL) Date Value 12/18/2021 7.88 05/28/2020 9.31 Platelet Count (k/uL) Date Value 12/18/2021 218 05/28/2020 243 BMP: Glucose (mg/dL) Date Value 01/11/2022 113 10/25/2020 107 Potassium (mmol/L) Date Value 01/11/2022 3.8 10/25/2020 3.7 Sodium (mmol/L) Date Value 01/11/2022 139 10/25/2020 141 Chloride (mmol/L) Date Value 01/11/2022 104 10/25/2020 109 CO2 (mmol/L) Date Value 01/11/2022 21 10/25/2020 23 Creatinine (mg/dL) Date Value 01/11/2022 0.86 10/25/2020 0.94 BUN (mg/dL) Date Value 01/11/2022 13 10/25/2020 15 Anion Gap (mmol/L) Date Value 01/11/2022 14 10/25/2020 9 Calcium (mg/dL) Date Value 10/25/2020 8.3 Calcium, Total (mg/dL) Date Value 01/11/2022 8.3 INR: Lipid Profile: Cholesterol, Total Date Value Ref Range Status 01/11/2022 196 <200 mg/dL Final Comment: <200 mg/dL, Desirable 200-239 mg/dL, Borderline high >239 mg/dL, High HDL Cholesterol Date Value Ref Range Status 01/11/2022 28 (L) >39 mg/dL Final Comment: 40-59 mg/dL, Acceptable >59 mg/dL, High: Negative risk factor for coronary heart disease <40 mg/dL, Low: Positive risk factor for coronary heart disease LDL Cholesterol Date Value Ref Range Status 01/11/2022 107 (H) <100 mg/dL Final Comment: <100 mg/dL, Optimal 100-129 mg/dL, Near optimal/above optimal 130-159 mg/dL, Borderline high 160-189 mg/dL, High >189 mg/dL, Very high Secondary prevention optimal LDL Cholesterol levels are recommended to be < 70 mg/dL Triglyceride Date Value Ref Range Status 01/11/2022 305 (H) <150 mg/dL Final Comment: <150 mg/dL, Normal 150-199 mg/dL, Borderline high 200-499 mg/dL, High >499 mg/dL, Very high Hemoglobin A1C: No results found for: HGBA1C TSH: No results found for: TSHREFL Prior Cardiac Testing EKG Assessment and Plan: ASSESSMENT/PLAN: 1. Screening for ischemic heart disease - ICD9: V81.0, ICD10: Z13.6 (primary diagnosis) - ECG COMPLETE Patient is completely asymptomatic there is no indication to proceed with any risk stratification'sapart from preventative measures like exercise weight loss and diet control Recommend repeat her lipid profile in 3 months after intense exercise regiments and weight loss program 2. PCOS (polycystic ovarian syndrome) - ICD9: 256.4, ICD10: E28.2 Considerable percentage of patient with polycystic ovarian syndrome have associated hyperlipidemia 3. Class 2 obesity due to excess calories without serious comorbidity with body mass index (BMI) of39.0 to 39.9 in adult - ICD9: 278.00, V85.39, ICD10: E66.09, Z68.39 Stable - Pharmacological intervention Exercise program 4. Hypertriglyceridemia - ICD9: 272.1, ICD10: E78.1 - newly diagnosed - Discussed the benefits of regular aerobic exercise and weight loss. 5. Dyslipidemia (high LDL; low HDL) - ICD9: 272.4, ICD10: E78.5 - newly addressed - Discussed the benefits of regular aerobic exercise and weight loss. 6. Elevated fasting glucose - ICD9: 790.21, ICD10: R73.01 On meds - LIPID PANEL BASIC Lavern Lim MD Follow up planning: One year Electronically signed by Lavern Lim MD on June 05, 2022, 8:39 AM The above note was partially created using a dictation recognition software. A reasonable attempt has been made to correct any errors. documented in this encounterUniversity [facility]als [facility]01-26-2023 Miscellaneous Notes* Telephone Encounter - Susana Castillo MD - 03/02/2022 3:38 PM EST filed * Telephone Encounter - Thais Kamara LPN - 03/02/2022 3:21 PM EST Patient had appointment 01/25/2022 with Selena documented in this encounterUniversity Hospitals [facility]01-19-2023 History of Present illness Narrative* Lupe Grant MD - 02/23/2022 11:03 AM EST Endocrinology Initial Consult Visit - VIRTUAL VISIT Virtual Visit (Audio/Visual)I have discussed the nature of this visit with the patient which will occur via [facility] (Phone, Virtual Visit) and she agrees to proceed with this interaction. CC: Weight management Referring Provider: Mariana Hilario APRN.CNM HPI: 26 y/o woman with PCOS, migraines, hepatic steatosis here for evaluation of weight management. She was recently diagnosed with PCOS by her [employer]. Menarche at age 11. Always regular but became irregular the last couple years. LMP April 2021. She has hair growth on face and also acne. She has a 4 y/o, no issues conceiving. The past few years were actively trying to become was unsuccessful. Her [employer] OPERATOR just started her on Leslie 2 weeks ago. Weight Hx: started gaining weight after COVID, depression, emotional eating. Previously 180 lbs andnow 232 lbs in Dec 2021. This is her weight max. 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 Remaining 12 point ROS is otherwise negative Past Medical History: PAST MEDICAL HISTORY Diagnosis Date Anxiety Calculus of gallbladder without biliary obstruction 08/10/2019 Cervical intraepithelial neoplasia grade 1 2016 Elevated glucose 09/01/2019 Patient had elevated glucose on last BMP. BMI elevated, No FM history of diabetes. 08/2019: Hba1c 5.3 Seasonal allergies flonase. Shingles outbreak Past Surgical History: PAST SURGICAL HISTORY Procedure Laterality Date CHOLECYSTECTOMY HX 08/2019 NONE 05/2010 Social History: Social History Tobacco Use Smoking status: Never Smokeless tobacco: Never Vaping Use Vaping Use: Never used Substance Use Topics Alcohol use: Not Currently Comment: social Drug use: No Family History: FAMILY HISTORY Problem Relation Age of Onset COPD Maternal Grandfather other (smoker) Maternal Grandfather Hypertension Maternal Grandmother Lipids Maternal Grandmother Anxiety disorder Mother Cancer Paternal Grandfather bone? Anxiety disorder Sister Medications: Current Outpatient Medications Medication Sig Dispense Refill Drospirenone-Ethinyl Estradiol (LESLIE, 28,) 3-0.02 mg per tablet Take 1 tablet by mouth once daily for 28 days. 28 tablet 0 Lactobacillus acidophilus (FLORAJEN ACIDOPHILUS) 20 billion cell cap Take 1 capsule by mouth once daily. 30 capsule 0 ibuprofen (MOTRIN ORAL) Take by mouth. cetirizine (ZYRTEC) 10 mg tablet Take 1 tablet by mouth once daily. 30 tablet 0 fluticasone (FLONASE) 50 mcg/actuation nasal spray Use 2 Sprays in each nostril once daily. Rinse mouth after use. 1 Bottle 0 No current facility-administered medications for this visit. Allergies: ALLERGIES Allergen Reactions Imitrex [Sumatripta* Other: See Comments Patient stated her jaw locked up and hurt really bad Physical Exam: General: well appearing, NAD Normal affect. AOx3 Labs/Imaging: Component Latest Ref Rng & Units 12/18/2021 01/11/2022 Protein, Total 6.3 - 8.0 g/dL 7.1 Albumin 3.9 - 4.9 g/dL 4.3 Calcium 8.5 - 10.2 mg/dL 8.3 (L) Bilirubin, Total 0.2 - 1.3 mg/dL 0.3 Alkaline Phosphatase 34 - 123 U/L 87 AST 13 - 35 U/L 40 (H) 22 ALT 7 - 38 U/L 30 32 Glucose 74 - 99 mg/dL 113 (H) BUN 7 - 21 mg/dL 13 Creatinine 0.58 - 0.96 mg/dL 0.86 Sodium 136 - 144 mmol/L 139 Potassium 3.7 - 5.1 mmol/L 4.4 3.8 Chloride 97 - 105 mmol/L 104 CO2 22 - 30 mmol/L 21 (L) Anion Gap 9 - 18 mmol/L 14 eGFR >=60 mL/min/1.73m 95 Cholesterol, Total <200 mg/dL 196 Triglyceride <150 mg/dL 305 (H) HDL Cholesterol >39 mg/dL 28 (L) Non HDL Cholesterol <130 mg/dL 168 (H) Fasting Time hrs 12 VLDL Cholesterol <30 mg/dL 61 (H) TC:HDL Ratio <5.10 7.00 (H) LDL Cholesterol <100 mg/dL 107 (H) LDL:HDL Ratio <2.54 3.82 (H) Testosterone Free <0.13 - 1.06 ng/dL 1.89 (H) Testosterone 8 - 60 ng/dL 58 Hemoglobin A1C 4.3 - 5.6 % 5.3 Estimated Average Glucose mg/dL 105 DHEA-S 98.8 - 340.0 ug/dL 154.0 Hydroxyprogesterone <=206.00 ng/dL 70.27 Prolactin 4.5 - 26.8 ng/mL 18.1 TSH 0.270 - 4.200 mIU/L 3.110 Free T4 0.9 - 1.7 ng/dL 0.9 Free T3 2.3 - 4.1 pg/mL 2.9 T3 79 - 165 ng/dL 106 Microsomal Antibody <5.6 IU/mL 2.5 01/16/2022 TVUS Uterus size: 6.7 x 3.5 x 4.3 cm -Orientation: Anteverted -Myometrium: Normal sonographic appearance. -Endometrial echo complex: 6 mm Right ovary: 4.2 x 2.6 x 2.4 cm Normal sonographic appearance. Left ovary: 3.9 x 2.0 x 2.5 cm Normal sonographic appearance. Pelvis free fluid: No significant free fluid in the cul-de-sac. 12/18/2021 CT flank: No acute abnormality Hepatic steatosis Assessment/Plan: 1. Obesity, Class II, BMI 35-39.9 - ICD9: 278.00, ICD10: E66.9 (primary diagnosis) 2. Impaired fasting glucose - ICD9: 790.21, ICD10: R73.01 3. PCOS (polycystic ovarian syndrome) - ICD9: 256.4, ICD10: E28.2 C/b IFG, HLD, hepatic steatosis We discussed that any interventions that she makes needs to be sustainable in the long-term. We will refer her to dietitian. Continue with exercise regimen. We discussed options for medical weight management and their individual risks, benefits, side effects including: Orlistat, phentermine, Qsymia, Contrave, GLP-1 RA. We also discussed metformin given IFG and PCOS. She is currently on OCPs but interested in becoming in the future; we discussed that none of the medications are approvedin but there is some more experience with metformin. She is agreeable to start metformin. She was also interested in [facility] so will refer her. - start metformin 500mg once daily x 1 week then increase to 500mg BID - meet with dietitian -Continue exercise regimen - Refer to [facility] program RTC 4 months Lupe Grant MD documented in this encounterUniversity Hospitals [facility]01-10-2023 Miscellaneous Notes* Telephone Encounter - Rita David RN - 02/14/2022 2:49 PM EST I called patient and transferred her to to schedule an appointment * Telephone Encounter - Mariana Hilario APRN.CNM - 02/14/2022 1:44 PM EST I can see her but please assist in getting appointment with primary care provider as well. Thank you, Mariana Hilario APRN.CNM * Telephone Encounter - Rita David RN - 02/14/2022 1:12 PM EST I called patient and she said that chest pains have decreased significantly but she still notices them She wonders if it is due to anxiety. States she has been diagnosed with depression and anxiety in the past but not currently on medication. Denies any suicidal thoughts. Patient does not have PCP or counselor. Would like appointment with SHANE as offered in phone note. Appointment made. Patient is to go to ER if chest pain increases,or the development of any further symptoms. WALTER * Telephone Encounter - Thais Kamara LPN - 02/10/2022 9:58 AM EST Left message to call office * Telephone Encounter - Mariana Hilario APRN.CNM - 02/10/2022 9:15 AM EST Please call patient and see how she is feeling. I am happy to see her for an appointment to discussfurther. If current chest pain needs to stop OCP and be seen by primary care or emergency room if severe. Thank you, Mariana Hilario APRN.CNM documented in this encounterUniversity Hospitals [facility] Center12-30-2022 Instructions* Patient Instructions* Mariana Hilario APRN.CNM - 02/03/2022 4:49 PM EST 1) Make appointment with endocrinology weight management 2) Start Leslie for control the first Sunday you get prescription 3) Make appointment with preventative cardiology for hyperlipidemia/triglycerides. 4) Follow up with me in 3 months for your control and menstrual cycle. I hope we can get your some resolution! Take care, Mariana Hilario APRN.CNM Please call [phone] to schedule your Endocrinology Medical Weight Management appointment or you can self-schedule by logging onto your [employer] account. Polycystic Ovary Syndrome Women with polycystic ovary syndrome (PCOS) have a hormonal imbalance that interferes with normal reproductive processes. PCOS usually starts at puberty and is associated with irregular periods and other hormone related symptoms. The most concerning issues with PCOS are the increase of infertility,the risk of developing type 2 diabetes and cardiovascular disease, and the higher risk of developing endometrial (uterine) cancer at an early age. What are the symptoms of PCOS? Irregular menstrual periods, or no menstrual periods at all Decreased frequency or complete lack of ovulation, resulting in problems with infertility Obesity, often specifically characterized by weight gain in the upper body and abdomen Oily skin and hair and persistent acne into adulthood Abnormal hair growth, in a masculine distribution (facial hair, heavy hair growth on arms, chest, and abdomen) Tendency to develop type 2 diabetes What causes PCOS syndrome? Research is ongoing to uncover a cause for PCOS. There is evidence that shows a link between certain forms of PCOS and family history, suggesting a genetic basis for the condition. How is PCOS diagnosed? Most cases can be diagnosed with a thorough evaluation of your medical history and symptoms, as well as a physical exam. A blood test may be required to measure the levels of various hormones. In some cases, an ultrasound of the ovaries may help with diagnosis. How is PCOS treated? Although PCOS can be treated with medications, treatment is often highly dependent on your goals and your symptoms. If you want to become , you may need the assistance of oral or injected fertility medications. If you do not want to become , you may consider control pills to prevent pregnancyand regulate periods. Other symptoms such as unwanted hair growth, acne, obesity, and diabetes should be managed by specialists in those areas. Specific treatment options should be discussed with your physician. How can PCOS be prevented? There is no known prevention for PCOS. However, through proper nutrition and weight management manywomen with polycystic ovary syndrome can avoid developing diabetes and cardiovascular problems. How can I improve my chances of conceiving if I have PCOS? While specific fertility issues should be addressed with your physician, there are some general healthcare guidelines that may improve your chances of becoming : Folic acid (400 mcg. supplement a day, with a diet rich in folic acid, including leafy green vegetables, dried beans, liver, and citrus fruits) Limit caffeine (Fewer than two caffeinated beverages per day) Eat well (Healthy well-balanced diet) Exercise and maintain a healthy weight (Maintain a normal exercise routine, 20 to 30 minutes per day, 4 to 5 times per week.) This information is provided by your physician and the [facility] Journal of Medicine and the[facility] [email or web address]. This information has not been designed to replace a physician's medical assessment and medical judgment. Copyright 1994- 2012 [facility]. All rights reserved This information is provided by the [facility] and is not intended to replace the medical advice of your doctor or health care provider. Please consult your health care provider for advice about a specific medical condition. For additional health information, please contact the Center for Consumer Health Information at the [facility] or toll-free extension [phone]. If you prefer, you may visit [email or web address] or [email or web address]. This document was last reviewed on: 2009 index#9516 Hyperlipidemia You are being sent home after being treated for hyperlipidemia. Hyperlipidemia means that you have an abnormally high level of lipids (fatty- like substances) in your blood. Hyperlipidemia includes high levels of cholesterol, triglycerides or both. This is called combined hyperlipidemia. The types of lipids in your blood include: LDL (Low Density Lipoprotein): This is known as the bad cholesterol. It causes blockage of the arteries. Triglycerides: This is the form fat takes when it is in the blood stream. It carries energy to the body. If the levels are too high, the risk of heart disease grows. HDL (High Density Lipoprotein): This is known as the good cholesterol. It helps to prevent the blockages that form in the arteries. You want this type of cholesterol to be higher. Elevated LDL and triglycerides puts you at risk for blocked arteries. These can cause strokes and heart attacks. It also creates a higher risk for developing pancreatitis. You might need another exam or more tests to find out why you have hyperlipidemia. Factors that cause or lead to hyperlipidemia include: Your genetics (inherited traits). Overeating/obesity. Lack of exercise. An inactive lifestyle. Smoking. Diabetes. Kidney disease. Underactive thyroid gland. In addition to taking your medications as prescribed, make sure you also do the following: Exercise Daily. This will help to raise the levels of your good cholesterol. Stop smoking. Eat a health balanced diet. Ask your doctor about a diet that is created to help you lower your cholesterol. Increase your daily activity. Limit how much alcohol you drink. It is safe to go home now. You do not need to stay in the hospital. Follow up with your doctor in the next 1-2 weeks. We don t believe your condition is dangerous right now. However, you need to be careful. Sometimes a problem that seems small can get serious later. Therefore, it is very important for you to come back here or go to the nearest Emergency Department if you don t get better or your symptoms get worse. YOU SHOULD SEEK MEDICAL ATTENTION IMMEDIATELY, EITHER HERE OR AT THE NEAREST EMERGENCY DEPARTMENT, IF ANY OF THE FOLLOWING OCCUR: Your pain does not go away or gets worse. You have uncontrolled vomiting (throwing up). You have muscle pain. You have any other symptoms or concerns, or don t get better as expected. If you can t follow up with your doctor, or if at any time you feel you need to be rechecked or seen again, come back here or go to the nearest emergency department. Oral Contraceptives: The Pill Beginning the Pill Pills come in either a 21 day pack or a 28 day pack. With the 21 day pack you will take one pill for 21 days then no pill for 7 days, during which time you will have what is known as withdrawal bleeding. The 28 day pack allows you to take a pill every day of the cycle with no interruptions. The first 21 pills are the pills with the active ingredients and the last 7 are the nonmedical pills (placebo) or they may contain iron. There will be bleeding during the week you are taking the nonmedical pills. The advantage to the 28 day pack is that you don t have to keep track of when you stopped the pill. Unless otherwise instructed, you should start your pills the Sunday following your first day of bleeding with your next period (if your period starts on a Sunday, you should start pills the same day) Read your information packet that comes with the pills. Pill Benefits The pill is the most popular method of reversible control being used today. Millions of womenrely on oral contraceptives as their control method. It is important to have an examination by your physician to determine if the pill is safe for you. There are several advantages associated with the pill: it is 97-98% effective; may improve acne; periods are more regular and less painful; there is less iron deficiency anemia in pill users. intermodal dispatcher use is associated with a decreased incidence of ovarian and uterine cancer. There is also no evidence that the pill increases the incidenceof any cancer. How Oral Contraceptives Work Oral contraceptives come in two varieties. One is the combination pill which contains both estrogenand progesterone. Combination pills are considered 98-99% effective in preventing . This pill comes in either monophasic, which delivers the same amount of estrogen and progesterone throughout the cycle; and triphasic, which try tries to mimic the normal hormone cycle by changing the levels of the hormones in the pills during the month. There is no real advantage to taking the one over the other. The other type of pill only contains progesterone. It is best used for women who can t take estrogen. This type of pill is slightly less effective than the combination pill in preventing preg debora. Oral contraceptives prevent ovulation (release of an egg from the ovary) by suppressing the pituitary gland s action. The pill does NOT prevent sexually transmitted disease. Obtaining a Prescription It is important to see your doctor before starting oral contraceptives so that you can have a full medical history taken and a physical examination given. Certain medical conditions may make the pillinappropriate for you, therefore it is very important to be honest and as complete as possible withthe information you share with your doctor. The types of predisposing factors which would make the pill a poor choice of control would include: History of blood clots Stroke Serious liver disease or impaired liver function Unexplained vaginal bleeding or Cancer of the reproductive system Active gall bladder disease Hypertension Possible Side Effects It can take up to three months for your body to become adjusted to the pill. The more common side effects experienced at this time are: breakthrough spotting or bleeding, which is bleeding at any other time other than when you should be having a period; nausea or vomiting; breast tenderness; and mild fluid retention. There is no regional intermodal truck driver weight gain with the use of the pill. Breakthrough bleeding is the most common complaint of new pill users. There is no way to predict who will have it and there is no way of preventing it. Breakthrough bleeding usually subsides on its own with no further treatment after the first three months of taking the pill. If these symptoms continue to occur after the first three months you should check with your physician to see if there is any physical cause andpossibly change to another control pill. Problems: Missed 1 pill: Take 2 pills the next day. Missed 2 pills: Take 2 pills the next day and 2 pills the following day. Also use another form of control (condoms) along with the pill for the rest of the month. Missed 3 or more pills: You have two choices. You can take two pills each day until you are on schedule, plus use an additional form of control along with the pill for the rest of the month. Oryou can stop the pill and start a completely new pack of pills the next Sunday. You must use another form of control with the pill for at least the first two weeks of the new pack. You re ill and you have been vomiting or have diarrhea: You must use another form of control with the pill since the pill may not be fully absorbed during your illness. Continue to use the added control until the end of the cycle. Desire to become : Stop using the pill for one month before trying to become . Taking other medications: The control pill is less effective when you take the antibiotic Rifampin, epilepsy (seizure) drugs such as phenytoin, carbamazepine, phenobarbital, topiramate and somemedications for HIV. Let your doctor know if you start taking any of these medications while on thepill. Symptoms to Notify Your Doctor with Immediately: Pain in your chest or legs Continuous blurred vision Severe headaches Slurred speech Tingling or weakness on one side of your body Shortness of breath Swelling of one leg Refills of Control Pills You need to see a doctor every year for a refill of your prescription. This is necessary in order that your health can be monitored closely while you are taking control pills. If your prescription should before your next scheduled appointment you can usually get a one month extension from your doctors office if you call during regular business hours about one week before you need to start the new package of pills. This allows the physician to refer to your chart for necessary health information. TRYING TO LOSE WEIGHT? Your There is no height or weight on file to calculate BMI. (Target BMI: 19-25) A person with a BMI between 25 and 29.9 is considered overweight A person with a BMI of 30 or greater is considered to be obese SETTING A WEIGHT LOSS GOAL: Last 5 Encounter Wt Readings: Date: Wt: 12/18/2021 232 lb 5.8 oz (105.4 kg) 12/18/2021 232 lb 6.4 oz (105.4 kg) 09/19/2021 220 lb (99.8 kg) 08/19/2021 221 lb 12.8 oz (100.6 kg) 08/03/2021 225 lb 9.6 oz (102.3 kg) Lose 10% of body weight over six months, about 1-2 lbs per week LIFESTYLE CHANGES -- The goals of lifestyle changes are to help you change your eating habits, become more active, and be more aware of how much you eat and exercise, helping you to make healthier choices. This can be broken down into three steps: 1. Triggers to eat -- Determining what triggers you to eat involves figuring out what foods you eatand where and when you eat. To figure out what triggers you to eat, keep a record for a few days ofeverything you eat, the places where you eat, how often you eat, and the emotions you were feeling when you ate. For some people, the trigger is related to a certain time of day or night. For others, the trigger is related to a certain place, like sitting at a desk working. 2. Eating -- You can change your eating habits by breaking the chain of events between the trigger for eating and eating itself. There are many ways to do this. For instance, you can: Limit where you eat to a few places (eg, dining room) Restrict the number of utensils (eg, only a fork) used for eating Drink a sip of water between each bite Chew your food a certain number of times Get up and stop eating every few minutes 3. What happens after you eat -- Rewarding yourself for good eating behaviors can help you to develop better habits. This is not a reward for weight loss; instead, it is a reward for changing unhealthy behaviors. Do not use food as a reward. Some people find money, clothing, or personal care (eg, a hair cut, manicure, or massage) to be effective rewards. Treat yourself immediately after making better eating choices to reinforce the value of the good behavior. You need to have clear behavior goals, and you must have a time frame for reaching your goals. Reward small changes along the way to your final goal. Other factors that contribute to successful weight loss -- Establish a ella system -- Having a friend or family member available to provide support and reinforce good behavior is very helpful. The support person needs to understand your goals. Learn to be strong -- Learning to be strong when tempted by food is an important part of losing weight. As an example, you will need to learn how to say no and continue to say no when urged to eat at parties and social gatherings. Develop strategies for events before you go, such as eating beforeyou go or taking low-calorie snacks and drinks with you. Develop a support system -- Having a support system is helpful when losing weight. This is why manycommercial groups are successful. Family support is also essential; if your family does not supportyour efforts to lose weight, this can slow your progress or even keep you from losing weight. Positive thinking -- People often have conversations with themselves in their head; these conversations can be positive or negative. If you eat a piece of cake that was not planned, you may respond by thinking, Oh, you stupid idiot, you've blown your diet! and as a result, you may eat more cake. A positive thought for the same event could be, Well, I ate cake when it was not on my plan. Now I should do something to get back on track. A positive approach is much more likely to be successful than a negative one. Reduce stress -- Although stress is a part of everyday life, it can trigger uncontrolled eating in some people. It is important to find a way to get through these difficult times without eating or byeating low-calorie food, like raw vegetables. It may be helpful to imagine a relaxing place that allows you to temporarily escape from stress. With deep breaths and closed eyes, you can imagine this relaxing place for a few minutes. Self-help programs -- Self-help programs like Weight Watchers , Overeaters Anonymous , and Take OffPounds Sensibly (TOPS) work for some people. As with all weight loss programs, you are most likely to be successful with these plans if you make long-term changes in how you eat. CHOOSING A DIET -- A calorie is a unit of energy found in food. Your body needs calories to function. The goal of any diet is to burn up more calories than you eat. How quickly you lose weight depends upon several factors, such as your age, gender, and starting weight. Older people have a slower metabolism than young people, so they lose weight more slowly. Men lose more weight than women of similar height and weight when dieting because they use more energy. People who are extremely overweight lose weight more quickly than those who are only mildly overweight. How many calories do I need? -- You can estimate the number of calories you need per day based uponyour current (or target) weight, gender, and activity level for women and for men. In general, it is best to choose foods that contain enough protein, carbohydrates, essential fatty acids, and vitamins. Try not to drink alcohol or drinks with added sugar, and most sweets (candy, cakes, cookies), sincethey rarely contain important nutrients. Portion-controlled diets -- One simple way to diet is to buy packaged foods, like frozen low-calorie meals or meal-replacement canned drinks. A typical meal plan for 1000 to 1500 calories per day mayinclude: A meal-replacement drink or breakfast bar for breakfast A meal-replacement drink or a frozen low-calorie (250 to 350 calories) meal for lunch A frozen low-calorie meal or other prepackaged, calorie-controlled meal, along with extra vegetables for dinner Low-fat diet -- To reduce the amount of fat in your diet, you can: Eat low-fat foods. Low-fat foods are those that contain less than 30 percent of calories from fat. Fat is listed on the food facts label Count fat grams. For a 1500 calorie diet, this would mean about 45 g or fewer of fat per day. Low-carbohydrate diet -- Low- and lcjm-pvw-miczhfevnawa diets (eg, Atkins diet, PlaySay diet) have become popular ways to lose weight quickly. With a lnxt-voo-zfgtuzsqixcc diet, you eat between 0 and 60 grams of carbohydrates per day (a standard diet contains 200 to 300 grams of carbohydrates) With a low-carbohydrate diet, you eat between 60 and 130 grams of carbohydrates per day Carbohydrates are found in fruits, vegetables, and grains (including breads, rice, pasta, and cereal), alcoholic beverages, and in dairy products. Meat and fish do not contain carbohydrates. Side effects of qxwi-hfz-gxmklazxgfaj diets can include constipation, headache, bad breath, muscle cramps, diarrhea, and weakness. Mediterranean diet -- The term Mediterranean diet refers to a way of eating that is common in olive-growing regions around the [place] Sea. Although there is some variation in Mediterranean diets, there are some similarities. Most Mediterranean diets include: A high level of monounsaturated fats (from olive or canola oil, walnuts, pecans, almonds) and a lowlevel of saturated fats (from butter) A high amount of vegetables, fruits, legumes, and grains (7 to 10 servings of fruits and vegetablesper day) A moderate amount of milk and dairy products, mostly in the form of cheese. Use low-fat dairy products (skim milk, fat-free yogurt, low-fat cheese). A relatively low amount of red meat and meat products. Substitute fish or poultry for red meat. For those who drink alcohol, a modest amount (mainly as red wine) may help to protect against cardiovascular disease. A modest amount is up to one (4 ounce) glass per day for women and up to two glasses per day for men. Which diet is best? -- No one diet is best for weight loss. Any diet will help you to lose weight if you stick with the diet. Therefore, it is important to choose a diet that includes foods you like. Fad diets -- Fad diets often promise quick weight loss (more than 1 to 2 pounds per week) and may claim that you do not need to exercise or give up favorite foods. Some fad diets cost a lot of money,because you have to pay for seminars or pills. Fad diets generally lack any scientific evidence that they are safe and effective, but instead rely on before and after photos or testimonials. Diets that sound too good to be true usually are. These plans are a waste of time and money and arenot recommended. A doctor, nurse, or probation officer can help you find a safe and effective way to lose weight and keep it off. Adapted from [employer] documented in this [facility] History of Present illness Narrative* Mariana Hilario APRN.CNM - 01/25/2022 8:33 AM EST DISTANCE HEALTH VISIT This Team Access Model visit is a virtual encounter. It required patient- provider interaction for the medical decision making as documented below. Richard Smith is a 26 year old female seen for Irregular menses and labs Was prescribed Aygestin 5mg once daily for cycle regulation in 10/25/2020. Was not using anything else. Increased abdominal pain so stopped after taking for 4 months. After she stopped taking this abdominal pain stopped. Had 2 menses after she stopped taking then no menses since April 2021. Denies any irregular bleeding or abdominal pain. Started having hot flashes after April. Getting hot flashes, weight gain. Diet and exercise not working. Hormones feel off. 218 lb weight gain since 10/2020 232 lb today Goes to gym every other day. Working out for 30-60 minutes, treadmill and 30 minute weights. Started working out since 12/2020 Diet-Reduced carbs, no fast food, started this around April. Feels like she has done well with her diet and will slip up at times. Gets bloated with carbs. 10/25/2020 visit with regarding irregular menses for approximately 2 years. Patient states first menstrual cycle approximately age 12 with regular cycles up until about 2 years ago. Patient states menses were typically every 28 to 30 days with 5 to 7 days of bleeding. Patient states approximately 2 years ago she noticedher menses were irregular where she would have a cycle every few months. Patient states this year she had a cycle in June 2020 followed by 2 days of spotting in September 2020. Prior to her June menses she had a period in January 2020. Patient states during these last 2 years she became depressed afterhaving a miscarriage at 12 weeks gestation and reports gained approximately 30 pounds. She denies any changes with medications. She reports she does notice more acne and facial hair. Patient denies any family history of PCOS that she is aware of. She denies any history of endometriosis or diabetes.Patient offers no other concerns at this time. She reports she does have 1 son age 33 years old. Sheis actively trying to conceive with her boyfriend who is the father of her son. Pt reports typical menses are heavier and has mild cramping. HISTORY REVIEWED (electronic chart updated): - medical history - medications - allergies REVIEW OF SYSTEMS: GENERAL: feeling well without fatigue, no recent change in weight PHYSICAL EXAMINATION: VIDEO EXAM: (if done, performed via video enabled technology) GENERAL: alert and appropriate, in no distress, well-hydrated, well nourished, and happy, smiling, interactive NEUROLOGIC: no obvious deficit Component Latest Ref Rng & Units 01/11/2022 Protein, Total 6.3 - 8.0 g/dL 7.1 Albumin 3.9 - 4.9 g/dL 4.3 Calcium 8.5 - 10.2 mg/dL 8.3 (L) Bilirubin, Total 0.2 - 1.3 mg/dL 0.3 Alkaline Phosphatase 34 - 123 U/L 87 AST 13 - 35 U/L 22 ALT 7 - 38 U/L 32 Glucose 74 - 99 mg/dL 113 (H) BUN 7 - 21 mg/dL 13 Creatinine 0.58 - 0.96 mg/dL 0.86 Sodium 136 - 144 mmol/L 139 Potassium 3.7 - 5.1 mmol/L 3.8 Chloride 97 - 105 mmol/L 104 CO2 22 - 30 mmol/L 21 (L) Anion Gap 9 - 18 mmol/L 14 eGFR >=60 mL/min/1.73m 95 Cholesterol, Total <200 mg/dL 196 Triglyceride <150 mg/dL 305 (H) HDL Cholesterol >39 mg/dL 28 (L) Non HDL Cholesterol <130 mg/dL 168 (H) Fasting Time hrs 12 VLDL Cholesterol <30 mg/dL 61 (H) TC:HDL Ratio <5.10 7.00 (H) LDL Cholesterol <100 mg/dL 107 (H) LDL:HDL Ratio <2.54 3.82 (H) Testosterone Free <0.13 - 1.06 ng/dL 1.89 (H) Testosterone 8 - 60 ng/dL 58 Hemoglobin A1C 4.3 - 5.6 % 5.3 Estimated Average Glucose mg/dL 105 DHEA-S 98.8 - 340.0 ug/dL 154.0 Hydroxyprogesterone <=206.00 ng/dL 70.27 Prolactin 4.5 - 26.8 ng/mL 18.1 TSH 0.270 - 4.200 mIU/L 3.110 Free T4 0.9 - 1.7 ng/dL 0.9 Free T3 2.3 - 4.1 pg/mL 2.9 T3 79 - 165 ng/dL 106 Microsomal Antibody <5.6 IU/mL 2.5 ASSESSMENT/PLAN: 1. PCOS (polycystic ovarian syndrome) - ICD9: 256.4, ICD10: E28.2 (primary diagnosis) Blood sugar and weight loss-endo referral Periods-Testerone levels Leslie 2. Class 2 obesity due to excess calories without serious comorbidity with body mass index (BMI) of39.0 to 39.9 in adult - ICD9: 278.00, V85.39, ICD10: E66.09, Z68.39 Weight increasing - Behavioral intervention and - Medical nutrition therapy with dietitian - Referral to medical weight loss with endocrinology. Will also address PCOS and impaired fasting Glucose. 3. Hypertriglyceridemia - ICD9: 272.1, ICD10: E78.1 - newly diagnosed - Encouraged following a low fat, low cholesterol diet. - Discussed the benefits of regular aerobic exercise and weight loss. - Follow up with preventative cardiology. - Encouraged following a low carbohydrate, healthy oil intake diet. 4. Dyslipidemia (high LDL; low HDL) - ICD9: 272.4, ICD10: E78.5 - newly diagnosed - Encouraged following a low fat, low cholesterol diet. - Discussed the benefits of regular aerobic exercise and weight loss. - Follow up with preventative cardiology. - Encouraged following a low carbohydrate, healthy oil intake diet. 5. Elevated testosterone level - ICD9: 790.6, ICD10: R79.89 Reviewed elevated testosterone level and amenorrhea 6. Elevated fasting glucose - ICD9: 790.21, ICD10: R73.01 - Behavioral intervention and - Medical nutrition therapy with dietitian - Referral to medical weight loss with endocrinology. Will also address PCOS and impaired fasting Glucose. 7. History of pre-eclampsia - ICD9: V13.29, ICD10: Z87.59 - Encouraged following a low fat, low cholesterol diet. - Discussed the benefits of regular aerobic exercise and weight loss. - Follow up with preventative cardiology. - Encouraged following a low carbohydrate, healthy oil intake diet. 8. Secondary amenorrhea - ICD9: 626.0, ICD10: N91.1 -Reviewed importance of cycle regulation and management of PCOS -Reviewed different control options. Ok with OCP. Will prescribe LESLIE I discussed with the patient the risks, benefits, mechanism of action and alternatives to combined hormonal contraceptive use. No medical contraindications. Reviewed risk of blood clot, stroke and heart attack with hormonal contraception. Reviewed warning signs ACHES. Discussed stopping control 4 weeks prior to scheduled surgery if will be immobile. I reviewed with her the administration options and when to start. Her questions were answered and she desired to start. Mariana Hilario APRN.CNM I spent a total of 39 minutes on the date of the service which included preparing to see the patient, [id number] patient care, completing clinical documentation, obtaining and/or reviewing separately obtained history, performing a medically appropriate examination, counseling and educating the pat ient/family/caregiver, and ordering medications, tests, or procedures. documented in this encounterUniversity Hospitals Cleveland [facility] Center12-06-2022 History of Present illness Narrative* Mariana ZANE Hilario.CNM - 01/10/2022 10:40 AM EST DISTANCE HEALTH VISIT This Team Access Model visit is a virtual encounter. It required patient- provider interaction for the medical decision making as documented below. Richard Smith is a 26 year old female seen for Was prescribed Aygestin 5mg once daily for cycle regulation in 10/25/2020. Was not using anything else. Increased abdominal pain so stopped after taking for 4 months. After she stopped taking this abdominal pain stopped. Had 2 menses after she stopped taking then no menses since April 2021. Denies any irregular bleeding or abdominal pain. Started having hot flashes after April. Getting hot flashes, weight gain. Diet and exercise not working. Hormones feel off. 218 lb weight gain since 10/2020 232 lb today Goes to gym every other day. Working out for 30-60 minutes, treadmill and 30 minute weights. Started working out since 12/2020 Diet-Reduced carbs, no fast food, started this around April. Feels like she has done well with her diet and will slip up at times. Gets bloated with carbs. 10/25/2020 visit with regarding irregular menses for approximately 2 years. Patient states first menstrual cycle approximately age 12 with regular cycles up until about 2 years ago. Patient states menses were typically every 28 to 30 days with 5 to 7 days of bleeding. Patient states approximately 2 years ago she noticedher menses were irregular where she would have a cycle every few months. Patient states this year she had a cycle in June 2020 followed by 2 days of spotting in September 2020. Prior to her June menses she had a period in January 2020. Patient states during these last 2 years she became depressed afterhaving a miscarriage at 12 weeks gestation and reports gained approximately 30 pounds. She denies any changes with medications. She reports she does notice more acne and facial hair. Patient denies any family history of PCOS that she is aware of. She denies any history of endometriosis or diabetes.Patient offers no other concerns at this time. She reports she does have 1 son age 33 years old. Sheis actively trying to conceive with her boyfriend who is the father of her son. Pt reports typical menses are heavier and has mild cramping. HISTORY REVIEWED (electronic chart updated): - medical history - medications - allergies REVIEW OF SYSTEMS: GENERAL: feeling well without fatigue, no recent change in weight GEMOLOGIST: denies abnormal vaginal bleeding, no vaginal discharge, no breast mass/tenderness NEURO: no numbness or paresthesias and no weakness of the extremities PHYSICAL EXAMINATION: VIDEO EXAM: (if done, performed via video enabled technology) GENERAL: alert and appropriate, in no distress, well-hydrated, well nourished, and happy, smiling, interactive Hirsutisim to bilateral jaw line and upper lip ASSESSMENT: ASSESSMENT/PLAN: 1. Unintended weight gain - ICD9: 783.1, ICD10: R63.5 (primary diagnosis) - HGB A1C - COMP METABOLIC PANEL 2. Hot flashes - ICD9: 782.62, ICD10: R23.2 3. Screening cholesterol level - ICD9: V77.91, ICD10: Z13.220 - LIPID PANEL BASIC 4. Secondary amenorrhea - ICD9: 626.0, ICD10: N91.1 - TESTOSTERONE, FREE AND TOTAL - DHEA-S BLD - HYDROXYPROGESTERO-17 - HGB A1C - PROLACTIN BLD - TSH BLD - T4 FREE/FREE THYROX - T3 FREE BLD - T3 BLD - THYROID PEROXIDASE ANTIBODY BLOOD - US FEMALE PELVIS TRANSVAG 5. Class 2 obesity due to excess calories without serious comorbidity with body mass index (BMI) of39.0 to 39.9 in adult - ICD9: 278.00, V85.39, ICD10: E66.09, Z68.39 Weight increasing - Behavioral intervention, - Behavioral and pharmacological intervention , and - Medical nutrition therapy with dietitian Referral to endocrinology weight management. Mariana Hilario APRN.CNM I spent a total of 30 minutes on the date of the service which included preparing to see the patient, [id number] patient care, completing clinical documentation, obtaining and/or reviewing separately obtained history, performing a medically appropriate examination, counseling and educating the pat ient/family/caregiver, and ordering medications, tests, or procedures. documented in this encounterUniversity Hospitals Cleveland [facility] Center11-13-2022 History of Present illness Narrative* Jose Brink APRN.CROSSBOW MAKER - 12/18/2021 11:49 AM EST Images from the original note were not included. Subjective HPI Nontoxic-appearing female presents urgent care chief complaint of her back pain and abdominal pain.Duration of symptoms 3 days. Associated symptoms bilateral mid to upper back pain nausea vomiting abdominal pain. Patient states history of back pain since September. This has worsened since abdominal pain has presented. States no vomiting today for episodes of vomiting yesterday. No blood in vomit. States back pain is worsening. Rates pain 10 out of 10. Rates abdominal pain 7 out of 10. Denies any fever body aches chills cough chest pain shortness of breath. Past medical history prescription medication use allergies reviewed. .Patient presents with: Back Pain: Pt reported upper back pain rated intermittent 10, x3 days, N/V. PAST MEDICAL HISTORY Diagnosis Date Anxiety Calculus of gallbladder without biliary obstruction 08/10/2019 Cervical intraepithelial neoplasia grade 1 2015 Elevated glucose 09/01/2019 Patient had elevated glucose on last BMP. BMI elevated, No FM history of diabetes. 08/2019: Hba1c 5.3 Seasonal allergies flonase. Shingles outbreak PAST SURGICAL HISTORY Procedure Laterality Date CHOLECYSTECTOMY HX 08/2019 NONE 05/2010 ALLERGIES Imitrex [Sumatriptan] MEDICATIONS Lactobacillus acidophilus (FLORAJEN ACIDOPHILUS) 20 billion cell cap Take 1 capsule by mouth once daily. ibuprofen (MOTRIN ORAL) Take by mouth. norethindrone (AYGESTIN) 5 mg tablet Take 1 tablet by mouth once daily. sertraline (ZOLOFT) 50 mg tablet Take 1 tablet by mouth once daily. (Patient not taking: Reported on 04/05/2021 ) omeprazole (PRILOSEC) 20 mg capsule Take 1 capsule by mouth once daily. (Patient not taking: Reported on 04/05/2021 ) cetirizine (ZYRTEC) 10 mg tablet Take 1 tablet by mouth once daily. fluticasone (FLONASE) 50 mcg/actuation nasal spray Use 2 Sprays in each nostril once daily. Rinse mouth after use. FAMILY HISTORY Problem Relation Age of Onset COPD Maternal Grandfather other (smoker) Maternal Grandfather Hypertension Maternal Grandmother Lipids Maternal Grandmother Anxiety disorder Mother Cancer Paternal Grandfather bone? Anxiety disorder Sister Social History Tobacco Use Smoking status: Never Smokeless tobacco: Never Vaping Use Vaping Use: Never used Substance Use Topics Alcohol use: Not Currently Comment: social Drug use: No BP 130/76 Pulse 97 Temp 36.7 C (98 F) Resp 18 Wt 105.4 kg (232 lb 6.4 oz) [facility] 04/08/2021 SpO2 98% BMI 39.68 kg/m Review of Systems Constitutional: Negative for chills, fever and malaise/fatigue. HENT: Negative for congestion, ear discharge, ear pain, sinus pain and sore throat. Eyes: Negative for blurred vision, pain, discharge and redness. Respiratory: Negative for cough, hemoptysis, sputum production, shortness of breath, wheezing and stridor. Cardiovascular: Negative for chest pain. Gastrointestinal: Positive for abdominal pain, nausea and vomiting. Negative for diarrhea. Musculoskeletal: Positive for back pain. Negative for myalgias. Skin: Negative for itching and rash. Neurological: Negative for dizziness and headaches. Objective Physical Exam Constitutional: General: She is not in acute distress. Appearance: She is not diaphoretic. HENT: Head: Normocephalic. Mouth/Throat: Mouth: Mucous membranes are moist. Pharynx: Oropharynx is clear. No oropharyngeal exudate or posterior oropharyngeal erythema. Eyes: Conjunctiva/sclera: Conjunctivae normal. Pupils: Pupils are equal, round, and reactive to light. Cardiovascular: Rate and Rhythm: Normal rate and regular rhythm. Heart sounds: Normal heart sounds. Pulmonary: Effort: Pulmonary effort is normal. No tachypnea, accessory muscle usage or respiratory distress. Breath sounds: Normal breath sounds. No stridor. No wheezing, rhonchi or rales. Abdominal: Palpations: Abdomen is soft. Tenderness: There is abdominal tenderness. Musculoskeletal: Cervical back: Normal range of motion and neck supple. No rigidity or tenderness. Back: Comments: Bilateral tenderness upon palpation to mid back. No spinal tenderness. Lymphadenopathy: Cervical: No cervical adenopathy. Skin: General: Skin is warm and dry. Neurological: Mental Status: She is alert and oriented to person, place, and time. ASSESSMENT/PLAN: 1. Generalized abdominal pain - ICD9: 789.07, ICD10: R10.84 Suspicious of back pain exacerbated by vomiting. Suspicious of viral illness. However with patient's significant discomfort I recommended patient be seen in ED for further evaluation care. Patient verbalized understand agrees with plan of care. Jose Brink APRN.JUAN M documented in this encounterUniversity Hospitals Cleveland Medical Center07-15-2022 History of Present illness Narrative* Eric Gaspar APRN.CNP - 08/19/2021 7:02 PM EDT Subjective HPI HPI Richard Smith is a 26 year old female who presents today for CC of st, cough, congestion, fever,loss smell/taste, sob. This started 2 days ago. Has tried otc medication for relief. Symptoms are worsened by nothing. Risk factors no known sick exposures. Positive home test for covid. Denies possibility of being . Nonsmoker. .Patient presents with: Sore Throat: pain rated 6, x 2 days + home Covid Ear Pain: (RT) ear pain , loss of smell, cough chest tighness PAST MEDICAL HISTORY Diagnosis Date Anxiety Calculus of gallbladder without biliary obstruction 08/10/2019 Cervical intraepithelial neoplasia grade 1 2015 Elevated glucose 09/01/2019 Patient had elevated glucose on last BMP. BMI elevated, No FM history of diabetes. 08/2019: Hba1c 5.3 Seasonal allergies flonase. Shingles outbreak PAST SURGICAL HISTORY Procedure Laterality Date CHOLECYSTECTOMY HX 08/2019 NONE 05/2010 ALLERGIES Imitrex [Sumatriptan] MEDICATIONS ibuprofen (MOTRIN ORAL) Take by mouth. norethindrone (AYGESTIN) 5 mg tablet Take 1 tablet by mouth once daily. sertraline (ZOLOFT) 50 mg tablet Take 1 tablet by mouth once daily. omeprazole (PRILOSEC) 20 mg capsule Take 1 capsule by mouth once daily. cetirizine (ZYRTEC) 10 mg tablet Take 1 tablet by mouth once daily. fluticasone (FLONASE) 50 mcg/actuation nasal spray Use 2 Sprays in each nostril once daily. Rinse mouth after use. FAMILY HISTORY Problem Relation Age of Onset COPD Maternal Grandfather other (smoker) Maternal Grandfather Hypertension Maternal Grandmother Lipids Maternal Grandmother Anxiety disorder Mother Cancer Paternal Grandfather bone? Anxiety disorder Sister Social History Tobacco Use Smoking status: Never Smoker Smokeless tobacco: Never Used Vaping Use Vaping Use: Never used Substance Use Topics Alcohol use: Not Currently Comment: social Drug use: No ROS Objective Blood pressure 126/82, pulse 82, temperature 36.2 C (97.2 F), resp. rate 18, weight 100.6 kg (221 lb 12.8 oz), SpO2 98 %. Physical Exam Constitutional: General: She is not in acute distress. Appearance: She is not toxic-appearing or diaphoretic. HENT: Head: Normocephalic and atraumatic. Right Ear: Hearing, ear canal and external ear normal. A middle ear effusion (clear, bubbles. ) is present. Left Ear: Hearing, tympanic membrane, ear canal and external ear normal. Nose: Nose normal. Mouth/Throat: Pharynx: Uvula midline. No pharyngeal swelling, oropharyngeal exudate, posterior oropharyngeal erythema or uvula swelling. Eyes: General: Lids are normal. No scleral icterus. Right eye: No discharge. Left eye: No discharge. Conjunctiva/sclera: Conjunctivae normal. Pupils: Pupils are equal, round, and reactive to light. Neck: Trachea: Trachea normal. Cardiovascular: Rate and Rhythm: Normal rate and regular rhythm. Heart sounds: Normal heart sounds. Pulmonary: Effort: Pulmonary effort is normal. Breath sounds: Normal breath sounds. Musculoskeletal: Cervical back: Normal range of motion and neck supple. Lymphadenopathy: Cervical: No cervical adenopathy. Right cervical: No superficial cervical adenopathy. Left cervical: No superficial cervical adenopathy. Skin: Findings: No rash. Neurological: Mental Status: She is alert and oriented to person, place, and time. ASSESSMENT/PLAN: 1. Suspected COVID-19 virus infection - ICD9: V01.79, ICD10: Z20.822 Discussed quarantine, social distancing otc medications discussed Push fluids -If you experience chest pain/shortness of breath go to ER - 2019 CORONAVIRUS Agrees to plan Eric Gaspar APRN.JUAN M documented in this encounterUniversity Hospitals Cleveland Medical Center06-29-2022 Instructions* Patient Instructions* Storm Mueller DO - 08/03/2021 3:11 PM EDT Today's Office Visit Try using Lactaid to see if it helps with the belly cramping/discomfort. 7 days of Flexeril 10mg to take at bedtime Aleve when you wake up and then 12 hours later for 7 days You can Epson salt bath, or icy hot, lidocaine patches, anything else, be sure to stretch. Health Maintenance To-Do's COVID-19 VACCINE(3 - Booster for Pfizer series) DEPRESSION SCREENING When to Schedule Next Come back in 2 weeks oor less if it does not improve. documented in this encounterUniversity Hospitals Cleveland Medical Center06-29-2022 History of Present illness Narrative* Storm Mueller DO - 08/03/2021 2:50 PM EDT [facility] Medicine [facility] FOLLOW-UP EXAM NAME: Richard Smith DATE: 08/03/2021 CC: Urgent Care Follow-Up SUBJECTIVE HPI: Richard Smith is a 26 year old female presenting for an Urgent Care visit on 08/02/21 in [place]. 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 - During this week, she stated that her pain located around the posterior portion of her R shoulder/scapula slowly got worse, and had decreased ROM d/t the pain. - Went to an Urgent Care on 08/02 to have the region looked at, and had a 3V XR of the R shoulder done w/o any signs of fracture/dislocation. - Patient stated that she was instructed to wear a sling and was recommended to follow up with Primary Care. - Stated that the sling made the pain worse, and so she scheduled with [facility] for further workup. - Patient denied any loss of sensation or motor function, radiculopathy. Denied systemic symptoms. ROS: SEE HPI All other systems are negative aside from what is stated in the HPI OBJECTIVE BP 131/77 (BP Site: Right Arm, BP Position: Sitting, BP Cuff Size: Regular Adult) Pulse 80 Temp36.4 C (97.5 F) (Temporal) Wt 225 lb 9.6 oz (102.3 kg) LMP 05/03/2021 (Approximate) SpO2 98% BMI 38.52 kg/m PHYSICAL EXAM: Physical Exam Vitals reviewed. Constitutional: General: She is not in acute distress. Eyes: General: No scleral icterus. Musculoskeletal: Right shoulder: Tenderness (TTP laterally along scapula, post deltoid) present. No swelling, deformity, effusion or crepitus. Normal range of motion. Normal strength. Normal pulse. Left shoulder: Normal. Neurological: General: No focal deficit present. Mental Status: She is alert and oriented to person, place, and time. Cranial Nerves: Cranial nerves are intact. Sensory: Sensation is intact. Motor: Motor function is intact. Coordination: Coordination is intact. ASSESSMENT/PLAN 1. Muscle spasm of right shoulder - ICD9: 728.85, ICD10: M62.838 - Patient neurovascularly intact, no motor or sensory deficits. - No trauma to the region, appears to be overuse injury. - XR Reviewed, no acute abnormalities. No fractures/dislocations. - Will trial 7 day course of Flexeril 10mg and Patient's preference for pain relief of Aleve BID - Recommended stretches of the affected area and other conservative therapies, recommended follow up if no improvement in 1-2 weeks. I personally spent total time of 15 min reviewing the patient s diagnostic tests, seeing the patient, coordinating care, and documenting in the record on the day of this encounter. Storm Mueller DO 08/03/2021 1:12 PM Preceptor: Karon Odonnell M.D. documented in this encounterUniversity Hospitals Cleveland Medical Center06-28-2022 Miscellaneous Notes* Telephone Encounter - Rachael Dominguez RN - 08/02/2021 10:35 AM EDT Pt called in asking if provider would want her to have work off on , so she could resat hershoulder. EC nurse asked provider if he wanted Pt to have off. Provider states, No if sheneeds more time off, she needs to go to her PCP for another note.. Pt notified. documented in this encounterUniversity Hospitals Cleveland Medical Center06-28-2022 History of Present illness Narrative* Dilcia Lomas RT(R) - 08/02/2021 10:00 AM EDT Radiology Service Progress Note PATIENT NAME: Richard Smith DATE OF SERVICE: August 02, 2021 TIME: 9:57 AM PATIENT IDENTITY VERIFICATION COMPLETED USING TWO (2) IDENTIFIERS: Name and Date of confirmedby patient verbally. FALL SCREENING: Has the patient had 2 falls in the last year or 1 fall with injury or currently using an Ambulatory Assistive Device (Walker, Cane, Wheelchair, Crutches, etc.)? No PATIENT GENDER DATA: Female. status: : No status: NO. PATIENT RELEVANT IMPLANT DATA REVIEWED: Yes RADIOLOGY DEPARTMENT: General X-ray: Exam(s) Completed: Upper Extremity X- Ray(s): Shoulder, AP / TRUE AP / AXILLARY right PERIPHERAL IV DATA: Not applicable SIGNED BY: RT Jennifer(R) August 02, 2021 9:57 AM documented in this encounterUniversity Hospitals Cleveland Medical Center01-26-2022 History of Present illness Narrative* Dilcia Lomas RT(R) - 03/02/2021 10:00 AM EST Radiology Service Progress Note PATIENT NAME: Richard Smith DATE OF SERVICE: March 02, 2021 TIME: 10:18 AM PATIENT IDENTITY VERIFICATION COMPLETED USING TWO (2) IDENTIFIERS: Name and Date of confirmedby patient verbally. FALL SCREENING: Has the patient had 2 falls in the last year or 1 fall with injury or currently using an Ambulatory Assistive Device (Walker, Cane, Wheelchair, Crutches, etc.)? No PATIENT GENDER DATA: Female. status: : No status: NO. PATIENT RELEVANT IMPLANT DATA REVIEWED: Yes RADIOLOGY DEPARTMENT: General X-ray: Exam(s) Completed: Upper Extremity X- Ray(s): Shoulder, AP / TRUE AP / AXILLARY left PERIPHERAL IV DATA: Not applicable SIGNED BY: RT Jennifer(Jole) March 02, 2021 10:18 AM documented in this encounterUniversity Hospitals Cleveland Medical Center01-03-2022 History of Present illness Narrative* Rita Da Silva RT(R) - 02/07/2021 9:10 AM EST Radiology Service Progress Note PATIENT NAME: Richard Smith DATE OF SERVICE: February 07, 2021 TIME: 9:17 AM PATIENT IDENTITY VERIFICATION COMPLETED USING TWO (2) IDENTIFIERS: Name and Date of confirmedby patient verbally. FALL SCREENING: Has the patient had 2 falls in the last year or 1 fall with injury or currently using an Ambulatory Assistive Device (Walker, Cane, Wheelchair, Crutches, etc.)? No PATIENT GENDER DATA: Female. status: : No status: NO. PATIENT RELEVANT IMPLANT DATA REVIEWED: Not Applicable RADIOLOGY DEPARTMENT: General X-ray: Exam(s) Completed: Lower Extremity X- Ray(s): Ankle, Left and Wt. Bearing and Foot, Left and Wt. Bearing PERIPHERAL IV DATA: Not applicable SIGNED BY: RT Marisol(R) February 07, 2021 9:17 AM documented in this encounterUniversity Hospitals Cleveland Medical Center09-28-2020 History of Past illness Narrative* Problem Noted Date Resolved Date Abdominal wall pain 11/03/2019 06/16/2020 Overview: Possibly related to post-surgical scars as patient notes pain focused there. Has been seen multiple times for this. -try topical treatment with diclofenac prn. Elevated glucose 09/01/2019 11/25/2019 Overview: Patient had elevated glucose on last BMP. BMI elevated, No FM history of diabetes. 08/2019: Hba1c 5.3 Cholelithiasis 08/13/2019 08/14/2019 Biliary colic 08/13/2019 08/14/2019 Overview: Symptoms of pain worsening with meals and cholelithiasis on imaging consistent with biliary colic due to cholelithiasis. Pain has been uncontrolled, required morphine and toradol in ED. Was unable to tolerate PO due to pain and nausea. -Consult general surgery -NPO -mIVF at 100cc/hr -Pain control: toradol PRN moderate pain, morphine PRN severe & breakthrough -zofran PRN nausea Calculus of gallbladder without biliary obstruct ion 08/10/2019 08/14/2019 Overview: Identified on US RUQ on 08/10/2019 during ED visit for nausea, vomiting, abdominal pain w/ meals. Repeat CT on 08/12: Interval development of gallbladder wall thickening/pericholecystic fluid. This may indicate underlying acute cholecystitis Clinically stable, no leukocytosis or fever, no abnormal LFTs. No evidence of obstruction or acute cholecystitis. -NPO -general surgery consult -toradol PRN -morphine PRN breakthrough documented as of this encounter (statuses as of 08/02/2021) [facility]09-28-2020 History of Past illness Narrative* Problem Noted Date Resolved Date Abdominal wall pain 11/03/2019 06/16/2020 Overview: Possibly related to post-surgical scars as patient notes pain focused there. Has been seen multiple times for this. -try topical treatment with diclofenac prn. Elevated glucose 09/01/2019 11/25/2019 Overview: Patient had elevated glucose on last BMP. BMI elevated, No FM history of diabetes. 08/2019: Hba1c 5.3 Cholelithiasis 08/13/2019 08/14/2019 Biliary colic 08/13/2019 08/14/2019 Overview: Symptoms of pain worsening with meals and cholelithiasis on imaging consistent with biliary colic due to cholelithiasis. Pain has been uncontrolled, required morphine and toradol in ED. Was unable to tolerate PO due to pain and nausea. -Consult general surgery -NPO -mIVF at 100cc/hr -Pain control: toradol PRN moderate pain, morphine PRN severe & breakthrough -zofran PRN nausea Calculus of gallbladder without biliary obstruct ion 08/10/2019 08/14/2019 Overview: Identified on US RUQ on 08/10/2019 during ED visit for nausea, vomiting, abdominal pain w/ meals. Repeat CT on 08/12: Interval development of gallbladder wall thickening/pericholecystic fluid. This may indicate underlying acute cholecystitis Clinically stable, no leukocytosis or fever, no abnormal LFTs. No evidence of obstruction or acute cholecystitis. -NPO -general surgery consult -toradol PRN -morphine PRN breakthrough documented as of this encounter (statuses as of 08/05/2021) [facility]09-28-2020 History of Past illness Narrative* Problem Noted Date Resolved Date Abdominal wall pain 11/03/2019 06/16/2020 Overview: Possibly related to post-surgical scars as patient notes pain focused there. Has been seen multiple times for this. -try topical treatment with diclofenac prn. Elevated glucose 09/01/2019 11/25/2019 Overview: Patient had elevated glucose on last BMP. BMI elevated, No FM history of diabetes. 08/2019: Hba1c 5.3 Cholelithiasis 08/13/2019 08/14/2019 Biliary colic 08/13/2019 08/14/2019 Overview: Symptoms of pain worsening with meals and cholelithiasis on imaging consistent with biliary colic due to cholelithiasis. Pain has been uncontrolled, required morphine and toradol in ED. Was unable to tolerate PO due to pain and nausea. -Consult general surgery -NPO -mIVF at 100cc/hr -Pain control: toradol PRN moderate pain, morphine PRN severe & breakthrough -zofran PRN nausea Calculus of gallbladder without biliary obstruct ion 08/10/2019 08/14/2019 Overview: Identified on US RUQ on 08/10/2019 during ED visit for nausea, vomiting, abdominal pain w/ meals. Repeat CT on 08/12: Interval development of gallbladder wall thickening/pericholecystic fluid. This may indicate underlying acute cholecystitis Clinically stable, no leukocytosis or fever, no abnormal LFTs. No evidence of obstruction or acute cholecystitis. -NPO -general surgery consult -toradol PRN -morphine PRN breakthrough documented as of this encounter (statuses as of 08/20/2021) [facility]09-28-2020 History of Past illness Narrative* Problem Noted Date Resolved Date Abdominal wall pain 11/03/2019 06/16/2020 Overview: Possibly related to post-surgical scars as patient notes pain focused there. Has been seen multiple times for this. -try topical treatment with diclofenac prn. Elevated glucose 09/01/2019 11/25/2019 Overview: Patient had elevated glucose on last BMP. BMI elevated, No FM history of diabetes. 08/2019: Hba1c 5.3 Cholelithiasis 08/13/2019 08/14/2019 Biliary colic 08/13/2019 08/14/2019 Overview: Symptoms of pain worsening with meals and cholelithiasis on imaging consistent with biliary colic due to cholelithiasis. Pain has been uncontrolled, required morphine and toradol in ED. Was unable to tolerate PO due to pain and nausea. -Consult general surgery -NPO -mIVF at 100cc/hr -Pain control: toradol PRN moderate pain, morphine PRN severe & breakthrough -zofran PRN nausea Calculus of gallbladder without biliary obstruct ion 08/10/2019 08/14/2019 Overview: Identified on US RUQ on 08/10/2019 during ED visit for nausea, vomiting, abdominal pain w/ meals. Repeat CT on 08/12: Interval development of gallbladder wall thickening/pericholecystic fluid. This may indicate underlying acute cholecystitis Clinically stable, no leukocytosis or fever, no abnormal LFTs. No evidence of obstruction or acute cholecystitis. -NPO -general surgery consult -toradol PRN -morphine PRN breakthrough documented as of this encounter (statuses as of 12/18/2021) [facility]09-28-2020 History of Past illness Narrative* Problem Noted Date Resolved Date Abdominal wall pain 11/03/2019 06/16/2020 Overview: Possibly related to post-surgical scars as patient notes pain focused there. Has been seen multiple times for this. -try topical treatment with diclofenac prn. Elevated glucose 09/01/2019 11/25/2019 Overview: Patient had elevated glucose on last BMP. BMI elevated, No FM history of diabetes. 08/2019: Hba1c 5.3 Cholelithiasis 08/13/2019 08/14/2019 Biliary colic 08/13/2019 08/14/2019 Overview: Symptoms of pain worsening with meals and cholelithiasis on imaging consistent with biliary colic due to cholelithiasis. Pain has been uncontrolled, required morphine and toradol in ED. Was unable to tolerate PO due to pain and nausea. -Consult general surgery -NPO -mIVF at 100cc/hr -Pain control: toradol PRN moderate pain, morphine PRN severe & breakthrough -zofran PRN nausea Calculus of gallbladder without biliary obstruct ion 08/10/2019 08/14/2019 Overview: Identified on US RUQ on 08/10/2019 during ED visit for nausea, vomiting, abdominal pain w/ meals. Repeat CT on 08/12: Interval development of gallbladder wall thickening/pericholecystic fluid. This may indicate underlying acute cholecystitis Clinically stable, no leukocytosis or fever, no abnormal LFTs. No evidence of obstruction or acute cholecystitis. -NPO -general surgery consult -toradol PRN -morphine PRN breakthrough documented as of this encounter (statuses as of 01/12/2022) [facility]09-28-2020 History of Past illness Narrative* Problem Noted Date Resolved Date Abdominal wall pain 11/03/2019 06/16/2020 Overview: Possibly related to post-surgical scars as patient notes pain focused there. Has been seen multiple times for this. -try topical treatment with diclofenac prn. Elevated glucose 09/01/2019 11/25/2019 Overview: Patient had elevated glucose on last BMP. BMI elevated, No FM history of diabetes. 08/2019: Hba1c 5.3 Cholelithiasis 08/13/2019 08/14/2019 Biliary colic 08/13/2019 08/14/2019 Overview: Symptoms of pain worsening with meals and cholelithiasis on imaging consistent with biliary colic due to cholelithiasis. Pain has been uncontrolled, required morphine and toradol in ED. Was unable to tolerate PO due to pain and nausea. -Consult general surgery -NPO -mIVF at 100cc/hr -Pain control: toradol PRN moderate pain, morphine PRN severe & breakthrough -zofran PRN nausea Calculus of gallbladder without biliary obstruct ion 08/10/2019 08/14/2019 Overview: Identified on US RUQ on 08/10/2019 during ED visit for nausea, vomiting, abdominal pain w/ meals. Repeat CT on 08/12: Interval development of gallbladder wall thickening/pericholecystic fluid. This may indicate underlying acute cholecystitis Clinically stable, no leukocytosis or fever, no abnormal LFTs. No evidence of obstruction or acute cholecystitis. -NPO -general surgery consult -toradol PRN -morphine PRN breakthrough documented as of this encounter (statuses as of 02/08/2022) [facility]09-28-2020 History of Past illness Narrative* Problem Noted Date Resolved Date Abdominal wall pain 11/03/2019 06/16/2020 Overview: Possibly related to post-surgical scars as patient notes pain focused there. Has been seen multiple times for this. -try topical treatment with diclofenac prn. Elevated glucose 09/01/2019 11/25/2019 Overview: Patient had elevated glucose on last BMP. BMI elevated, No FM history of diabetes. 08/2019: Hba1c 5.3 Cholelithiasis 08/13/2019 08/14/2019 Biliary colic 08/13/2019 08/14/2019 Overview: Symptoms of pain worsening with meals and cholelithiasis on imaging consistent with biliary colic due to cholelithiasis. Pain has been uncontrolled, required morphine and toradol in ED. Was unable to tolerate PO due to pain and nausea. -Consult general surgery -NPO -mIVF at 100cc/hr -Pain control: toradol PRN moderate pain, morphine PRN severe & breakthrough -zofran PRN nausea Calculus of gallbladder without biliary obstruct ion 08/10/2019 08/14/2019 Overview: Identified on US RUQ on 08/10/2019 during ED visit for nausea, vomiting, abdominal pain w/ meals. Repeat CT on 08/12: Interval development of gallbladder wall thickening/pericholecystic fluid. This may indicate underlying acute cholecystitis Clinically stable, no leukocytosis or fever, no abnormal LFTs. No evidence of obstruction or acute cholecystitis. -NPO -general surgery consult -toradol PRN -morphine PRN breakthrough documented as of this encounter (statuses as of 02/14/2022) [facility]09-28-2020 History of Past illness Narrative* Problem Noted Date Resolved Date Abdominal wall pain 11/03/2019 06/16/2020 Overview: Possibly related to post-surgical scars as patient notes pain focused there. Has been seen multiple times for this. -try topical treatment with diclofenac prn. Elevated glucose 09/01/2019 11/25/2019 Overview: Patient had elevated glucose on last BMP. BMI elevated, No FM history of diabetes. 08/2019: Hba1c 5.3 Cholelithiasis 08/13/2019 08/14/2019 Biliary colic 08/13/2019 08/14/2019 Overview: Symptoms of pain worsening with meals and cholelithiasis on imaging consistent with biliary colic due to cholelithiasis. Pain has been uncontrolled, required morphine and toradol in ED. Was unable to tolerate PO due to pain and nausea. -Consult general surgery -NPO -mIVF at 100cc/hr -Pain control: toradol PRN moderate pain, morphine PRN severe & breakthrough -zofran PRN nausea Calculus of gallbladder without biliary obstruct ion 08/10/2019 08/14/2019 Overview: Identified on US RUQ on 08/10/2019 during ED visit for nausea, vomiting, abdominal pain w/ meals. Repeat CT on 08/12: Interval development of gallbladder wall thickening/pericholecystic fluid. This may indicate underlying acute cholecystitis Clinically stable, no leukocytosis or fever, no abnormal LFTs. No evidence of obstruction or acute cholecystitis. -NPO -general surgery consult -toradol PRN -morphine PRN breakthrough documented as of this encounter (statuses as of 02/23/2022) [facility]09-28-2020 History of Past illness Narrative* Problem Noted Date Resolved Date Abdominal wall pain 11/03/2019 06/16/2020 Overview: Possibly related to post-surgical scars as patient notes pain focused there. Has been seen multiple times for this. -try topical treatment with diclofenac prn. Elevated glucose 09/01/2019 11/25/2019 Overview: Patient had elevated glucose on last BMP. BMI elevated, No FM history of diabetes. 08/2019: Hba1c 5.3 Cholelithiasis 08/13/2019 08/14/2019 Biliary colic 08/13/2019 08/14/2019 Overview: Symptoms of pain worsening with meals and cholelithiasis on imaging consistent with biliary colic due to cholelithiasis. Pain has been uncontrolled, required morphine and toradol in ED. Was unable to tolerate PO due to pain and nausea. -Consult general surgery -NPO -mIVF at 100cc/hr -Pain control: toradol PRN moderate pain, morphine PRN severe & breakthrough -zofran PRN nausea Calculus of gallbladder without biliary obstruct ion 08/10/2019 08/14/2019 Overview: Identified on US RUQ on 08/10/2019 during ED visit for nausea, vomiting, abdominal pain w/ meals. Repeat CT on 08/12: Interval development of gallbladder wall thickening/pericholecystic fluid. This may indicate underlying acute cholecystitis Clinically stable, no leukocytosis or fever, no abnormal LFTs. No evidence of obstruction or acute cholecystitis. -NPO -general surgery consult -toradol PRN -morphine PRN breakthrough documented as of this encounter (statuses as of 03/01/2022) [facility]09-28-2020 History of Past illness Narrative* Problem Noted Date Resolved Date Abdominal wall pain 11/03/2019 06/16/2020 Overview: Possibly related to post-surgical scars as patient notes pain focused there. Has been seen multiple times for this. -try topical treatment with diclofenac prn. Elevated glucose 09/01/2019 11/25/2019 Overview: Patient had elevated glucose on last BMP. BMI elevated, No FM history of diabetes. 08/2019: Hba1c 5.3 Cholelithiasis 08/13/2019 08/14/2019 Biliary colic 08/13/2019 08/14/2019 Overview: Symptoms of pain worsening with meals and cholelithiasis on imaging consistent with biliary colic due to cholelithiasis. Pain has been uncontrolled, required morphine and toradol in ED. Was unable to tolerate PO due to pain and nausea. -Consult general surgery -NPO -mIVF at 100cc/hr -Pain control: toradol PRN moderate pain, morphine PRN severe & breakthrough -zofran PRN nausea Calculus of gallbladder without biliary obstruct ion 08/10/2019 08/14/2019 Overview: Identified on US RUQ on 08/10/2019 during ED visit for nausea, vomiting, abdominal pain w/ meals. Repeat CT on 08/12: Interval development of gallbladder wall thickening/pericholecystic fluid. This may indicate underlying acute cholecystitis Clinically stable, no leukocytosis or fever, no abnormal LFTs. No evidence of obstruction or acute cholecystitis. -NPO -general surgery consult -toradol PRN -morphine PRN breakthrough documented as of this encounter (statuses as of 03/02/2022) [facility]09-28-2020 History of Past illness Narrative* Problem Noted Date Resolved Date Abdominal wall pain 11/03/2019 06/16/2020 Overview: Possibly related to post-surgical scars as patient notes pain focused there. Has been seen multiple times for this. -try topical treatment with diclofenac prn. Elevated glucose 09/01/2019 11/25/2019 Overview: Patient had elevated glucose on last BMP. BMI elevated, No FM history of diabetes. 08/2019: Hba1c 5.3 Cholelithiasis 08/13/2019 08/14/2019 Biliary colic 08/13/2019 08/14/2019 Overview: Symptoms of pain worsening with meals and cholelithiasis on imaging consistent with biliary colic due to cholelithiasis. Pain has been uncontrolled, required morphine and toradol in ED. Was unable to tolerate PO due to pain and nausea. -Consult general surgery -NPO -mIVF at 100cc/hr -Pain control: toradol PRN moderate pain, morphine PRN severe & breakthrough -zofran PRN nausea Calculus of gallbladder without biliary obstruct ion 08/10/2019 08/14/2019 Overview: Identified on US RUQ on 08/10/2019 during ED visit for nausea, vomiting, abdominal pain w/ meals. Repeat CT on 08/12: Interval development of gallbladder wall thickening/pericholecystic fluid. This may indicate underlying acute cholecystitis Clinically stable, no leukocytosis or fever, no abnormal LFTs. No evidence of obstruction or acute cholecystitis. -NPO -general surgery consult -toradol PRN -morphine PRN breakthrough documented as of this encounter (statuses as of 03/03/2022) [facility]09-28-2020 History of Past illness Narrative* Problem Noted Date Resolved Date Abdominal wall pain 11/03/2019 06/16/2020 Overview: Possibly related to post-surgical scars as patient notes pain focused there. Has been seen multiple times for this. -try topical treatment with diclofenac prn. Elevated glucose 09/01/2019 11/25/2019 Overview: Patient had elevated glucose on last BMP. BMI elevated, No FM history of diabetes. 08/2019: Hba1c 5.3 Cholelithiasis 08/13/2019 08/14/2019 Biliary colic 08/13/2019 08/14/2019 Overview: Symptoms of pain worsening with meals and cholelithiasis on imaging consistent with biliary colic due to cholelithiasis. Pain has been uncontrolled, required morphine and toradol in ED. Was unable to tolerate PO due to pain and nausea. -Consult general surgery -NPO -mIVF at 100cc/hr -Pain control: toradol PRN moderate pain, morphine PRN severe & breakthrough -zofran PRN nausea Calculus of gallbladder without biliary obstruct ion 08/10/2019 08/14/2019 Overview: Identified on US RUQ on 08/10/2019 during ED visit for nausea, vomiting, abdominal pain w/ meals. Repeat CT on 08/12: Interval development of gallbladder wall thickening/pericholecystic fluid. This may indicate underlying acute cholecystitis Clinically stable, no leukocytosis or fever, no abnormal LFTs. No evidence of obstruction or acute cholecystitis. -NPO -general surgery consult -toradol PRN -morphine PRN breakthrough documented as of this encounter (statuses as of 06/05/2022) [facility]09-28-2020 History of Past illness Narrative* Problem Noted Date Resolved Date Abdominal wall pain 11/03/2019 06/16/2020 Overview: Possibly related to post-surgical scars as patient notes pain focused there. Has been seen multiple times for this. -try topical treatment with diclofenac prn. Elevated glucose 09/01/2019 11/25/2019 Overview: Patient had elevated glucose on last BMP. BMI elevated, No FM history of diabetes. 08/2019: Hba1c 5.3 Cholelithiasis 08/13/2019 08/14/2019 Biliary colic 08/13/2019 08/14/2019 Overview: Symptoms of pain worsening with meals and cholelithiasis on imaging consistent with biliary colic due to cholelithiasis. Pain has been uncontrolled, required morphine and toradol in ED. Was unable to tolerate PO due to pain and nausea. -Consult general surgery -NPO -mIVF at 100cc/hr -Pain control: toradol PRN moderate pain, morphine PRN severe & breakthrough -zofran PRN nausea Calculus of gallbladder without biliary obstruct ion 08/10/2019 08/14/2019 Overview: Identified on US RUQ on 08/10/2019 during ED visit for nausea, vomiting, abdominal pain w/ meals. Repeat CT on 08/12: Interval development of gallbladder wall thickening/pericholecystic fluid. This may indicate underlying acute cholecystitis Clinically stable, no leukocytosis or fever, no abnormal LFTs. No evidence of obstruction or acute cholecystitis. -NPO -general surgery consult -toradol PRN -morphine PRN breakthrough documented as of this encounter (statuses as of 07/12/2022) [facility]09-28-2020 History of Past illness Narrative* Problem Noted Date Resolved Date Abdominal wall pain 11/03/2019 06/16/2020 Overview: Possibly related to post-surgical scars as patient notes pain focused there. Has been seen multiple times for this. -try topical treatment with diclofenac prn. Elevated glucose 09/01/2019 11/25/2019 Overview: Patient had elevated glucose on last BMP. BMI elevated, No FM history of diabetes. 08/2019: Hba1c 5.3 Cholelithiasis 08/13/2019 08/14/2019 Biliary colic 08/13/2019 08/14/2019 Overview: Symptoms of pain worsening with meals and cholelithiasis on imaging consistent with biliary colic due to cholelithiasis. Pain has been uncontrolled, required morphine and toradol in ED. Was unable to tolerate PO due to pain and nausea. -Consult general surgery -NPO -mIVF at 100cc/hr -Pain control: toradol PRN moderate pain, morphine PRN severe & breakthrough -zofran PRN nausea Calculus of gallbladder without biliary obstruct ion 08/10/2019 08/14/2019 Overview: Identified on US RUQ on 08/10/2019 during ED visit for nausea, vomiting, abdominal pain w/ meals. Repeat CT on 08/12: Interval development of gallbladder wall thickening/pericholecystic fluid. This may indicate underlying acute cholecystitis Clinically stable, no leukocytosis or fever, no abnormal LFTs. No evidence of obstruction or acute cholecystitis. -NPO -general surgery consult -toradol PRN -morphine PRN breakthrough documented as of this encounter (statuses as of 07/19/2022) [facility]09[facility]2020 History of Past illness Narrative* Problem Noted Date Resolved Date Abdominal wall pain 11/03/2019 06/16/2020 Overview: Possibly related to post-surgical scars as patient notes pain focused there. Has been seen multiple times for this. -try topical treatment with diclofenac prn. Elevated glucose 09/01/2019 11/25/2019 Overview: Patient had elevated glucose on last BMP. BMI elevated, No FM history of diabetes. 08/2019: Hba1c 5.3 Cholelithiasis 08/13/2019 08/14/2019 Biliary colic 08/13/2019 08/14/2019 Overview: Symptoms of pain worsening with meals and cholelithiasis on imaging consistent with biliary colic due to cholelithiasis. Pain has been uncontrolled, required morphine and toradol in ED. Was unable to tolerate PO due to pain and nausea. -Consult general surgery -NPO -mIVF at 100cc/hr -Pain control: toradol PRN moderate pain, morphine PRN severe & breakthrough -zofran PRN nausea Calculus of gallbladder without biliary obstruct ion 08/10/2019 08/14/2019 Overview: Identified on US RUQ on 08/10/2019 during ED visit for nausea, vomiting, abdominal pain w/ meals. Repeat CT on 08/12: Interval development of gallbladder wall thickening/pericholecystic fluid. This may indicate underlying acute cholecystitis Clinically stable, no leukocytosis or fever, no abnormal LFTs. No evidence of obstruction or acute cholecystitis. -NPO -general surgery consult -toradol PRN -morphine PRN breakthrough documented as of this encounter (statuses as of 07/25/2022) [facility]09-28-2020 History of Past illness Narrative* Problem Noted Date Resolved Date Abdominal wall pain 11/03/2019 06/16/2020 Overview: Possibly related to post-surgical scars as patient notes pain focused there. Has been seen multiple times for this. -try topical treatment with diclofenac prn. Elevated glucose 09/01/2019 11/25/2019 Overview: Patient had elevated glucose on last BMP. BMI elevated, No FM history of diabetes. 08/2019: Hba1c 5.3 Cholelithiasis 08/13/2019 08/14/2019 Biliary colic 08/13/2019 08/14/2019 Overview: Symptoms of pain worsening with meals and cholelithiasis on imaging consistent with biliary colic due to cholelithiasis. Pain has been uncontrolled, required morphine and toradol in ED. Was unable to tolerate PO due to pain and nausea. -Consult general surgery -NPO -mIVF at 100cc/hr -Pain control: toradol PRN moderate pain, morphine PRN severe & breakthrough -zofran PRN nausea Calculus of gallbladder without biliary obstruct ion 08/10/2019 08/14/2019 Overview: Identified on US RUQ on 08/10/2019 during ED visit for nausea, vomiting, abdominal pain w/ meals. Repeat CT on 08/12: Interval development of gallbladder wall thickening/pericholecystic fluid. This may indicate underlying acute cholecystitis Clinically stable, no leukocytosis or fever, no abnormal LFTs. No evidence of obstruction or acute cholecystitis. -NPO -general surgery consult -toradol PRN -morphine PRN breakthrough documented as of this encounter (statuses as of 07/26/2022) [facility]09[facility]2020 History of Past illness Narrative* Problem Noted Date Resolved Date Abdominal wall pain 11/03/2019 06/16/2020 Overview: Possibly related to post-surgical scars as patient notes pain focused there. Has been seen multiple times for this. -try topical treatment with diclofenac prn. Elevated glucose 09/01/2019 11/25/2019 Overview: Patient had elevated glucose on last BMP. BMI elevated, No FM history of diabetes. 08/2019: Hba1c 5.3 Cholelithiasis 08/13/2019 08/14/2019 Biliary colic 08/13/2019 08/14/2019 Overview: Symptoms of pain worsening with meals and cholelithiasis on imaging consistent with biliary colic due to cholelithiasis. Pain has been uncontrolled, required morphine and toradol in ED. Was unable to tolerate PO due to pain and nausea. -Consult general surgery -NPO -mIVF at 100cc/hr -Pain control: toradol PRN moderate pain, morphine PRN severe & breakthrough -zofran PRN nausea Calculus of gallbladder without biliary obstruct ion 08/10/2019 08/14/2019 Overview: Identified on US RUQ on 08/10/2019 during ED visit for nausea, vomiting, abdominal pain w/ meals. Repeat CT on 08/12: Interval development of gallbladder wall thickening/pericholecystic fluid. This may indicate underlying acute cholecystitis Clinically stable, no leukocytosis or fever, no abnormal LFTs. No evidence of obstruction or acute cholecystitis. -NPO -general surgery consult -toradol PRN -morphine PRN breakthrough documented as of this encounter (statuses as of 08/02/2022) [facility] History of Past illness Narrative* Problem Noted Date Diagnosed Date Resolved Date Abdominal wall pain 11/03/2019 06/17/19 Overview: Possibly related to post-surgical scars as patient notes pain focused there. Has been seen multiple times for this. -try topical treatment with diclofenac prn. Elevated glucose 09/01/2019 11/25/2019 Overview: Patient had elevated glucose on last BMP. BMI elevated, No FM history of diabetes. 08/2019: Hba1c 5.3 Cholelithiasis 08/13/2019 08/14/2019 Biliary colic 08/13/2019 08/14/2019 Overview: Symptoms of pain worsening with meals and cholelithiasis on imaging consistent with biliary colic due to cholelithiasis. Pain has been uncontrolled, required morphine and toradol in ED. Was unable to tolerate PO due to pain and nausea. -Consult general surgery -NPO -mIVF at 100cc/hr -Pain control: toradol PRN moderate pain, morphine PRN severe & breakthrough -zofran PRN nausea Calculus of gallbladder with out biliary obstruction 08/10/2019 08/14/2019 Overview: Identified on US RUQ on 08/10/2019 during ED visit for nausea, vomiting, abdominal pain w/ meals. Repeat CT on 08/12: Interval development of gallbladder wall thickening/pericholecystic fluid. This may indicate underlying acute cholecystitis Clinically stable, no leukocytosis or fever, no abnormal LFTs. No evidence of obstruction or acute cholecystitis. -NPO -general surgery consult -toradol PRN -morphine PRN breakthrough documented as of this encounter (statuses as of 09/13/2022) [facility]09-[facility]2020 History of Past illness Narrative* Problem Noted Date Diagnosed Date Resolved Date Abdominal wall pain 11/03/2019 06/17/19 Overview: Possibly related to post-surgical scars as patient notes pain focused there. Has been seen multiple times for this. -try topical treatment with diclofenac prn. Elevated glucose 09/01/2019 11/25/2019 Overview: Patient had elevated glucose on last BMP. BMI elevated, No FM history of diabetes. 08/2019: Hba1c 5.3 Cholelithiasis 08/13/2019 08/14/2019 Biliary colic 08/13/2019 08/14/2019 Overview: Symptoms of pain worsening with meals and cholelithiasis on imaging consistent with biliary colic due to cholelithiasis. Pain has been uncontrolled, required morphine and toradol in ED. Was unable to tolerate PO due to pain and nausea. -Consult general surgery -NPO -mIVF at 100cc/hr -Pain control: toradol PRN moderate pain, morphine PRN severe & breakthrough -zofran PRN nausea Calculus of gallbladder with out biliary obstruction 08/10/2019 08/14/2019 Overview: Identified on US RUQ on 08/10/2019 during ED visit for nausea, vomiting, abdominal pain w/ meals. Repeat CT on 08/12: Interval development of gallbladder wall thickening/pericholecystic fluid. This may indicate underlying acute cholecystitis Clinically stable, no leukocytosis or fever, no abnormal LFTs. No evidence of obstruction or acute cholecystitis. -NPO -general surgery consult -toradol PRN -morphine PRN breakthrough documented as of this encounter (statuses as of 09/22/2022) [facility] History of Past illness Narrative* Problem Noted Date Diagnosed Date Resolved Date Abdominal wall pain 11/03/2019 06/17/19 Overview: Possibly related to post-surgical scars as patient notes pain focused there. Has been seen multiple times for this. -try topical treatment with diclofenac prn. Elevated glucose 09/01/2019 11/25/2019 Overview: Patient had elevated glucose on last BMP. BMI elevated, No FM history of diabetes. 08/2019: Hba1c 5.3 Cholelithiasis 08/13/2019 08/14/2019 Biliary colic 08/13/2019 08/14/2019 Overview: Symptoms of pain worsening with meals and cholelithiasis on imaging consistent with biliary colic due to cholelithiasis. Pain has been uncontrolled, required morphine and toradol in ED. Was unable to tolerate PO due to pain and nausea. -Consult general surgery -NPO -mIVF at 100cc/hr -Pain control: toradol PRN moderate pain, morphine PRN severe & breakthrough -zofran PRN nausea Calculus of gallbladder with out biliary obstruction 08/10/2019 08/14/2019 Overview: Identified on US RUQ on 08/10/2019 during ED visit for nausea, vomiting, abdominal pain w/ meals. Repeat CT on 08/12: Interval development of gallbladder wall thickening/pericholecystic fluid. This may indicate underlying acute cholecystitis Clinically stable, no leukocytosis or fever, no abnormal LFTs. No evidence of obstruction or acute cholecystitis. -NPO -general surgery consult -toradol PRN -morphine PRN breakthrough documented as of this encounter (statuses as of 10/12/2022) [facility] History of Past illness Narrative* Problem Noted Date Diagnosed Date Resolved Date Abdominal wall pain 11/03/2019 06/17/19 21 Overview: Possibly related to post-surgical scars as patient notes pain focused there. Has been seen multiple times for this. -try topical treatment with diclofenac prn. Elevated glucose 09/01/2019 11/25/2019 Overview: Patient had elevated glucose on last BMP. BMI elevated, No FM history of diabetes. 08/2019: Hba1c 5.3 Cholelithiasis 08/13/2019 08/14/2019 Biliary colic 08/13/2019 08/14/2019 Overview: Symptoms of pain worsening with meals and cholelithiasis on imaging consistent with biliary colic due to cholelithiasis. Pain has been uncontrolled, required morphine and toradol in ED. Was unable to tolerate PO due to pain and nausea. -Consult general surgery -NPO -mIVF at 100cc/hr -Pain control: toradol PRN moderate pain, morphine PRN severe & breakthrough -zofran PRN nausea Calculus of gallbladder with out biliary obstruction 08/10/2019 08/14/2019 Overview: Identified on US RUQ on 08/10/2019 during ED visit for nausea, vomiting, abdominal pain w/ meals. Repeat CT on 08/12: Interval development of gallbladder wall thickening/pericholecystic fluid. This may indicate underlying acute cholecystitis Clinically stable, no leukocytosis or fever, no abnormal LFTs. No evidence of obstruction or acute cholecystitis. -NPO -general surgery consult -toradol PRN -morphine PRN breakthrough documented as of this encounter (statuses as of 10/12/2022) [facility] History of Past illness Narrative* Problem Noted Date Diagnosed Date Resolved Date Abdominal wall pain 11/03/2019 06/17/19 Overview: Possibly related to post-surgical scars as patient notes pain focused there. Has been seen multiple times for this. -try topical treatment with diclofenac prn. Elevated glucose 09/01/2019 11/25/2019 Overview: Patient had elevated glucose on last BMP. BMI elevated, No FM history of diabetes. 08/2019: Hba1c 5.3 Cholelithiasis 08/13/2019 08/14/2019 Biliary colic 08/13/2019 08/14/2019 Overview: Symptoms of pain worsening with meals and cholelithiasis on imaging consistent with biliary colic due to cholelithiasis. Pain has been uncontrolled, required morphine and toradol in ED. Was unable to tolerate PO due to pain and nausea. -Consult general surgery -NPO -mIVF at 100cc/hr -Pain control: toradol PRN moderate pain, morphine PRN severe & breakthrough -zofran PRN nausea Calculus of gallbladder with out biliary obstruction 08/10/2019 08/14/2019 Overview: Identified on US RUQ on 08/10/2019 during ED visit for nausea, vomiting, abdominal pain w/ meals. Repeat CT on 08/12: Interval development of gallbladder wall thickening/pericholecystic fluid. This may indicate underlying acute cholecystitis Clinically stable, no leukocytosis or fever, no abnormal LFTs. No evidence of obstruction or acute cholecystitis. -NPO -general surgery consult -toradol PRN -morphine PRN breakthrough documented as of this encounter (statuses as of 10/12/2022) [facility] History of Past illness Narrative* Problem Noted Date Diagnosed Date Resolved Date Abdominal wall pain 11/03/2019 06/17/19 Overview: Possibly related to post-surgical scars as patient notes pain focused there. Has been seen multiple times for this. -try topical treatment with diclofenac prn. Elevated glucose 09/01/2019 11/25/2019 Overview: Patient had elevated glucose on last BMP. BMI elevated, No FM history of diabetes. 08/2019: Hba1c 5.3 Cholelithiasis 08/13/2019 08/14/2019 Biliary colic 08/13/2019 08/14/2019 Overview: Symptoms of pain worsening with meals and cholelithiasis on imaging consistent with biliary colic due to cholelithiasis. Pain has been uncontrolled, required morphine and toradol in ED. Was unable to tolerate PO due to pain and nausea. -Consult general surgery -NPO -mIVF at 100cc/hr -Pain control: toradol PRN moderate pain, morphine PRN severe & breakthrough -zofran PRN nausea Calculus of gallbladder with out biliary obstruction 08/10/2019 08/14/2019 Overview: Identified on US RUQ on 08/10/2019 during ED visit for nausea, vomiting, abdominal pain w/ meals. Repeat CT on 08/12: Interval development of gallbladder wall thickening/pericholecystic fluid. This may indicate underlying acute cholecystitis Clinically stable, no leukocytosis or fever, no abnormal LFTs. No evidence of obstruction or acute cholecystitis. -NPO -general surgery consult -toradol PRN -morphine PRN breakthrough documented as of this encounter (statuses as of 04/16/2023) [facility] History of Past illness Narrative* Problem Noted Date Diagnosed Date Resolved Date Abdominal wall pain 11/03/2019 06/17/19 Overview: Possibly related to post-surgical scars as patient notes pain focused there. Has been seen multiple times for this. -try topical treatment with diclofenac prn. Elevated glucose 09/01/2019 11/25/2019 Overview: Patient had elevated glucose on last BMP. BMI elevated, No FM history of diabetes. 08/2019: Hba1c 5.3 Cholelithiasis 08/13/2019 08/14/2019 Biliary colic 08/13/2019 08/14/2019 Overview: Symptoms of pain worsening with meals and cholelithiasis on imaging consistent with biliary colic due to cholelithiasis. Pain has been uncontrolled, required morphine and toradol in ED. Was unable to tolerate PO due to pain and nausea. -Consult general surgery -NPO -mIVF at 100cc/hr -Pain control: toradol PRN moderate pain, morphine PRN severe & breakthrough -zofran PRN nausea Calculus of gallbladder with out biliary obstruction 08/10/2019 08/14/2019 Overview: Identified on US RUQ on 08/10/2019 during ED visit for nausea, vomiting, abdominal pain w/ meals. Repeat CT on 08/12: Interval development of gallbladder wall thickening/pericholecystic fluid. This may indicate underlying acute cholecystitis Clinically stable, no leukocytosis or fever, no abnormal LFTs. No evidence of obstruction or acute cholecystitis. -NPO -general surgery consult -toradol PRN -morphine PRN breakthrough documented as of this encounter (statuses as of 04/26/2023) [facility] History of Past illness Narrative* Problem Noted Date Diagnosed Date Resolved Date Abdominal wall pain 11/03/2019 06/17/19 Overview: Possibly related to post-surgical scars as patient notes pain focused there. Has been seen multiple times for this. -try topical treatment with diclofenac prn. Elevated glucose 09/01/2019 11/25/2019 Overview: Patient had elevated glucose on last BMP. BMI elevated, No FM history of diabetes. 08/2019: Hba1c 5.3 Cholelithiasis 08/13/2019 08/14/2019 Biliary colic 08/13/2019 08/14/2019 Overview: Symptoms of pain worsening with meals and cholelithiasis on imaging consistent with biliary colic due to cholelithiasis. Pain has been uncontrolled, required morphine and toradol in ED. Was unable to tolerate PO due to pain and nausea. -Consult general surgery -NPO -mIVF at 100cc/hr -Pain control: toradol PRN moderate pain, morphine PRN severe & breakthrough -zofran PRN nausea Calculus of gallbladder with out biliary obstruction 08/10/2019 08/14/2019 Overview: Identified on US RUQ on 08/10/2019 during ED visit for nausea, vomiting, abdominal pain w/ meals. Repeat CT on 08/12: Interval development of gallbladder wall thickening/pericholecystic fluid. This may indicate underlying acute cholecystitis Clinically stable, no leukocytosis or fever, no abnormal LFTs. No evidence of obstruction or acute cholecystitis. -NPO -general surgery consult -toradol PRN -morphine PRN breakthrough documented as of this encounter (statuses as of 04/26/2023) [facility]09[facility] History of Past illness Narrative* Problem Noted Date Diagnosed Date Resolved Date Abdominal wall pain 11/03/2019 06/17/19 Overview: Possibly related to post-surgical scars as patient notes pain focused there. Has been seen multiple times for this. -try topical treatment with diclofenac prn. Elevated glucose 09/01/2019 11/25/2019 Overview: Patient had elevated glucose on last BMP. BMI elevated, No FM history of diabetes. 08/2019: Hba1c 5.3 Cholelithiasis 08/13/2019 08/14/2019 Biliary colic 08/13/2019 08/14/2019 Overview: Symptoms of pain worsening with meals and cholelithiasis on imaging consistent with biliary colic due to cholelithiasis. Pain has been uncontrolled, required morphine and toradol in ED. Was unable to tolerate PO due to pain and nausea. -Consult general surgery -NPO -mIVF at 100cc/hr -Pain control: toradol PRN moderate pain, morphine PRN severe & breakthrough -zofran PRN nausea Calculus of gallbladder with out biliary obstruction 08/10/2019 08/14/2019 Overview: Identified on US RUQ on 08/10/2019 during ED visit for nausea, vomiting, abdominal pain w/ meals. Repeat CT on 08/12: Interval development of gallbladder wall thickening/pericholecystic fluid. This may indicate underlying acute cholecystitis Clinically stable, no leukocytosis or fever, no abnormal LFTs. No evidence of obstruction or acute cholecystitis. -NPO -general surgery consult -toradol PRN -morphine PRN breakthrough documented as of this encounter (statuses as of 05/10/2023) [facility] Muscle spasm of right shoulder- Primary Spasm of muscle [facility] Suspected COVID-19 virus infection- [facility] Diagnosis Generalized abdominal pain- Primary Abdominal pain, generalized Upper back pain [facility] Diagnosis Unintended weight gain- Primary Abnormal weight gain Hot flashes Symptomatic menopausal or female climacteric states Screening cholesterol level Screening for lipoid disorders Secondary amenorrhea Absence of menstruation Class 2 obesity due to excess calories without serious comorbidity with body mass index (BMI) of 39.0 to 39.9 in adult [facility] Diagnosis PCOS (polycystic ovarian syndrome)- Primary Polycystic ovaries Class 2 obesity due to excess calories without serious comorbidity with body mass index (BMI) of 39.0 to 39.9 in adult Hypertriglyceridemia Pure hyperglyceridemia Dyslipidemia (high LDL; low HDL) Other and unspecified hyperlipidemia Elevated testosterone level Elevated fasting glucose Impaired fasting glucose History of pre-eclampsia Personal history of other genital system and obstetric disorders Secondary amenorrhea Absence of menstruation [facility] Diagnosis Obesity, Class II, BMI 35-39.9- Primary Obesity, unspecified Impaired fasting glucose PCOS (polycystic ovarian syndrome) Polycystic ovaries documented in this encounter [facility] note* Diagnosis Impaired fasting glucose- Primary Obesity, Class II, BMI 35-39.9 Obesity, unspecified documented in this encounter [facility] note* Diagnosis Screening for ischemic heart disease- Primary PCOS (polycystic ovarian syndrome) Polycystic ovaries Class 2 obesity due to excess calories without serious comorbidity with body mass index (BMI) of 39.0 to 39.9 in adult Hypertriglyceridemia Pure hyperglyceridemia Dyslipidemia (high LDL; low HDL) Other and unspecified hyperlipidemia Elevated fasting glucose Impaired fasting glucose History of pre-eclampsia Personal history of other genital system and obstetric disorders Pure hypercholesterolemia documented in this encounter [facility] note* Diagnosis Obesity, Class I, BMI 30-34.9- Primary Obesity, unspecified IFG (impaired fasting glucose) Impaired fasting glucose PCOS (polycystic ovarian syndrome) Polycystic ovaries documented in this encounter [facility] note* Diagnosis Obesity, Class I, BMI 30-34.9- Primary Obesity, unspecified documented in this encounter [facility] note* Diagnosis Class 1 obesity with body mass index (BMI) of 34.0 to 34.9 in adult, unspecified obesity type, unspecified whether serious comorbidity present- Primary documented in this encounter [facility] note* Diagnosis Acute cough- Primary Exposure to the flu Contact with or exposure to other viral diseases Acute otitis media, left Unspecified otitis media documented in this encounter [facility] note* Diagnosis Class 2 obesity with body mass index (BMI) of 37.0 to 37.9 in adult, unspecified obesity type, unspecified whether serious comorbidity present- Primary documented in this encounter [facility] note* Diagnosis Class 2 obesity with body mass index (BMI) of 37.0 to 37.9 in adult, unspecified obesity type, unspecified whether serious comorbidity present documented in this encounter [facility] noteNo assessment information availableWThe [facility] Work Phone: Evaluation note* Diagnosis Class 2 obesity with body mass index (BMI) of 37.0 to 37.9 in adult, unspecified obesity type, unspecified whether serious comorbidity present- Primary Obesity, Class I, BMI 30-34.9 Obesity, unspecified documented in this encounter [facility] note* Diagnosis Class 1 obesity with body mass index (BMI) of 34.0 to 34.9 in adult, unspecified obesity type, unspecified whether serious comorbidity present- Primary [facility]* Diagnosis Class 1 obesity with body mass index (BMI) of 34.0 to 34.9 in adult, unspecified obesity type, unspecified whether serious comorbidity present- [facility] Diagnosis Acute pain of right shoulder documented in this encounter [facility] note* Diagnosis Acute left ankle pain documented in this encounter [facility] note* Diagnosis Acute pain of left shoulder [facility] Diagnosis Class 1 obesity with body mass index (BMI) of 32.0 to 32.9 in adult, unspecified obesity type, unspecified whether serious comorbidity present- Primary [facility] Diagnosis Encounter for gynecological examination (general) (routine) with abnormal findings- Primary Screening for cervical cancer Screening for malignant neoplasm of the cervix Encounter for screening for human papillomavirus (HPV) Special screening examination for human papillomavirus (HPV) Inverted nipple Other sign and symptom in breast Vaginal discharge Leukorrhea, not specified as infective Encounter for surveillance of contraceptive pills Surveillance of previously prescribed contraceptive pill documented in this encounter [facility] note* Diagnosis Encounter for supervision of high risk in first trimester, antepartum- Primary with uncertain dates in first trimester Obesity affecting in first trimester, unspecified obesity type History of anxiety Personal history of other mental disorder History of pre-eclampsia Personal history of other genital system and obstetric disorders Family history of congenital anomaly Family history of congenital anomalies Inverted nipple Other sign and symptom in breast History of miscarriage Personal history of other genital system and obstetric disorders PCOS (polycystic ovarian syndrome) Polycystic ovaries Need for influenza vaccination Need for prophylactic vaccination and inoculation against influenza [facility] Diagnosis Elevated TSH- Primary Nonspecific abnormal results of thyroid function study 7 weeks gestation of state, incidental [facility] Diagnosis Elevated TSH- Primary Nonspecific abnormal results of thyroid function study documented in this encounter [facility] note* Diagnosis Inversion of both nipples- Primary [facility]* Diagnosis Threatened in early ([facility])- Primary documented in this encounter [facility] Work Phone: Evaluation note* Diagnosis Encounter for supervision of high risk in first trimester, antepartum with uncertain dates in first trimester [facility] Diagnosis Encounter for supervision of high risk in first trimester, antepartum- Primary 7 weeks gestation of state, incidental Thyroid disease Unspecified disorder of thyroid [facility] Diagnosis Encounter for supervision of high risk in first trimester, antepartum- Primary Obesity affecting in first trimester, unspecified obesity type Vaginal itching Pruritus of genital organs History of anxiety Personal history of other mental disorder Thyroid disease Unspecified disorder of thyroid 12 weeks gestation of state, incidental 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 [facility] Diagnosis Encounter for screening for malformation using ultrasound- Primary 12 weeks gestation of state, incidental [facility] Diagnosis 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 Obesity affecting in first trimester, unspecified obesity type [facility] Diagnosis Yeast vaginitis- Primary Candidiasis of vulva and vagina [facility] Diagnosis Viral illness- Primary Unspecified viral infection, in conditions classified elsewhere and of unspecified site [facility] Diagnosis Encounter for supervision of high risk in first trimester, antepartum- Primary Elevated TSH Nonspecific abnormal results of thyroid function study 16 weeks gestation of state, incidental [facility] Diagnosis Encounter for screening for malformation using ultrasound- Primary 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 Obesity affecting in first trimester, unspecified obesity type 16 weeks gestation of state, incidental [facility] Diagnosis Supervision of high risk in second trimester- Primary Unspecified high-risk 20 weeks gestation of state, incidental Obesity affecting in first trimester, unspecified obesity type Elevated TSH Nonspecific abnormal results of thyroid function study 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 History of pre-eclampsia Personal history of other genital system and obstetric disorders Rubella non-immune status, antepartum Other specified complication, antepartum History of anxiety Personal history of other mental disorder [facility] Diagnosis Encounter for anatomic survey- Primary Thyroid disease Unspecified disorder of thyroid 20 weeks gestation of state, incidental Obesity affecting in second trimester, unspecified obesity type 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 [facility] Diagnosis Elevated TSH Nonspecific abnormal results of thyroid function study 7 weeks gestation of state, incidental documented in this encounter [facility] note* Diagnosis Single umbilical artery affecting management of mother, antepartum, single gestation- Primary 21 weeks gestation of state, incidental documented in this encounter [facility] note* Diagnosis heart rate/rhythm abnormality affecting management of mother- Primary Abnormality in heart rate/rhythm, unspecified as to episode of care or not applicable 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 documented in this [facility]* Diagnosis 24 weeks gestation of - Primary state, incidental Supervision of high risk in second trimester Unspecified high-risk Obesity affecting in first trimester, unspecified obesity type History of pre-eclampsia Personal history of other genital system and obstetric disorders Rubella non-immune status, antepartum Other specified complication, antepartum Screening for diabetes mellitus documented in this encounter [facility] note* Diagnosis History of pre-eclampsia Personal history of other genital system and obstetric disorders Abdominal cramping affecting (HCC) Encounter for ultrasound to check growth ([facility])- Primary Encounter for routine screening for malformation using ultrasonics Single umbilical artery affecting management of mother, antepartum, single gestation (HCC) 28 weeks gestation of (HCC) state, incidental High-risk in third trimester ([facility])- Primary History of pre-eclampsia Personal history of other genital system and obstetric disorders Single umbilical artery affecting management of mother, antepartum, single gestation (HCC) 28 weeks gestation of (HCC) state, incidental Need for vaccination Need for prophylactic vaccination and inoculation against unspecified single disease Encounter for other general counseling or advice on contraception Elevated TSH Nonspecific abnormal results of thyroid function study documented [facility] this [facility]* Diagnosis History of pre-eclampsia Personal history of other genital system and obstetric disorders Abdominal cramping affecting (HCC) High-risk in third trimester (HCC)- Primary History of pre-eclampsia Personal history of other genital system and obstetric disorders Single umbilical artery affecting management of mother, antepartum, single gestation (HCC) 28 weeks gestation of (HCC) state, incidental Need for vaccination Need for prophylactic vaccination and inoculation against unspecified single disease Encounter for other general counseling or advice on contraception Elevated TSH Nonspecific abnormal results of thyroid function study * Assessment & Plan Note - Alfred Childress MD - 05/21/2024 10:50 AM EDT Associated Problem(s): Single umbilical artery affecting management of mother, antepartum, single gestation (HCC) growth scan reviewed, cont. growth q 4 weeks. Ordered today. schedule NSTs weekly at 36 weeks, orders in Orders: PROTEIN / CREATININE RATIO; Future OBSTETRIC ULTRASOUND WHI; Standing * Assessment & Plan Note - Alfred Childress MD - 05/21/2024 10:45 AM EDT Associated Problem(s): History of pre-eclampsia baseline labs were done other than prot/creat ration, get that today Orders: PROTEIN / CREATININE RATIO; Future * Assessment & Plan Note - Alfred Childress MD - 05/21/2024 10:45 AM EDT Associated Problem(s): High-risk in third trimester (HCC) Orders: PROTEIN / CREATININE RATIO; Future OBSTETRIC ULTRASOUND WHI; Standing * Assessment & Plan Note - Alfred Childress MD - 05/21/2024 10:45 AM EDT Associated Problem(s): Contraceptive management Risks, benefits and alternatives to sterilization have been discussed with the patient. She declines reversible options including LARC. She understands sterilization is permanent, irreversible, risksof failure, regret and ectopic. In addition she understands there are surgical risks as well. Her questions were answered to her satisfaction and consent was signed. D/w her will do if c/s otherwise may need to wait until after PP visit. Declines LARC at delivery, [facility] paper for this signed. documented in this encounter [facility]* Diagnosis History of pre-eclampsia Personal history of other genital system and obstetric disorders Abdominal cramping affecting (HCC) High-risk in third trimester ([facility])- Primary History of pre-eclampsia Personal history of other genital system and obstetric disorders Single umbilical artery affecting management of mother, antepartum, single gestation (HCC) 28 weeks gestation of ([facility]) state, incidental Need for vaccination Need for prophylactic vaccination and inoculation against unspecified single disease Encounter for other general counseling or advice on contraception Elevated TSH Nonspecific abnormal results of thyroid function study Acute otitis media, right- Primary Unspecified otitis media URI, acute Acute upper respiratory infections of unspecified site documented in this encounter [facility] note* Diagnosis Single umbilical artery (HCC)- 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 History of pre-eclampsia Personal history of other genital system and obstetric disorders Abdominal cramping affecting (HCC) High-risk in third trimester ([facility])- Primary History of pre-eclampsia Personal history of other genital system and obstetric disorders Single umbilical artery affecting management of mother, antepartum, single gestation (HCC) 28 weeks gestation of ([facility]) state, incidental Need for vaccination Need for prophylactic vaccination and inoculation against unspecified single disease Encounter for other general counseling or advice on contraception Elevated TSH Nonspecific abnormal results of thyroid function study documented in this encounter [facility] note* Diagnosis History of pre-eclampsia Personal history of other genital system and obstetric disorders Abdominal cramping affecting (HCC) High-risk in third trimester ([facility])- Primary History of pre-eclampsia Personal history of other genital system and obstetric disorders Single umbilical artery affecting management of mother, antepartum, single gestation (HCC) 28 weeks gestation of ([facility]) state, incidental Need for vaccination Need for prophylactic vaccination and inoculation against unspecified single disease Encounter for other general counseling or advice on contraception Elevated TSH Nonspecific abnormal results of thyroid function study Supervision of high risk in third trimester ([facility])- Primary Unspecified high-risk 30 weeks gestation of ([facility]) state, incidental Obesity affecting in first trimester, unspecified obesity type ([facility]) Elevated TSH Nonspecific abnormal results of thyroid function study Single umbilical artery affecting management of mother, antepartum, single gestation (HCC) History of pre-eclampsia Personal history of other genital system and obstetric disorders Rubella non-immune status, antepartum (HCC) Other specified complication, antepartum History of anxiety Personal history of other mental disorder [facility] Diagnosis History of pre-eclampsia Personal history of other genital system and obstetric disorders Abdominal cramping affecting ([facility]) High-risk in third trimester ([facility])- Primary History of pre-eclampsia Personal history of other genital system and obstetric disorders Single umbilical artery affecting management of mother, antepartum, single gestation (HCC) 28 weeks gestation of ([facility]) state, incidental Need for vaccination Need for prophylactic vaccination and inoculation against unspecified single disease Encounter for other general counseling or advice on contraception Elevated TSH Nonspecific abnormal results of thyroid function study Supervision of high risk in third trimester ([facility])- Primary Unspecified high-risk History of pre-eclampsia Personal history of other genital system and obstetric disorders Elevated TSH Nonspecific abnormal results of thyroid function study Single umbilical artery affecting management of mother, antepartum, single gestation (HCC) 32 weeks gestation of ([facility]) state, incidental * Assessment & Plan Note - Janay Hugo MD - 06/18/2024 2:00 PM EDT Associated Problem(s): History of pre-eclampsia Baseline labs are completed 28 weeks * Assessment & Plan Note - Janay Hugo MD - 06/18/2024 2:00 PM EDT Associated Problem(s): Elevated TSH Continue synthroid * Assessment & Plan Note - Janay Hugo MD - 06/18/2024 2:00 PM EDT Associated Problem(s): Single umbilical artery affecting management of mother, antepartum, single gestation ([facility]) Growth us q4 weeks documented in this encounter [facility] note* Diagnosis History of pre-eclampsia Personal history of other genital system and obstetric disorders Abdominal cramping affecting (HCC) High-risk in third trimester ([facility])- Primary History of pre-eclampsia Personal history of other genital system and obstetric disorders Single umbilical artery affecting management of mother, antepartum, single gestation (HCC) 28 weeks gestation of ([facility]) state, incidental Need for vaccination Need for prophylactic vaccination and inoculation against unspecified single disease Encounter for other general counseling or advice on contraception Elevated TSH Nonspecific abnormal results of thyroid function study Encounter for ultrasound to check growth ([facility])- Primary Encounter for routine screening for malformation using ultrasonics Single umbilical artery affecting management of mother, antepartum, single gestation (HCC) 32 weeks gestation of ([facility]) state, incidental Supervision of high risk in third trimester ([facility])- Primary Unspecified high-risk History of pre-eclampsia Personal history of other genital system and obstetric disorders Elevated TSH Nonspecific abnormal results of thyroid function study Single umbilical artery affecting management of mother, antepartum, single gestation ([facility]) 32 weeks gestation of ([facility]) state, incidental documented in this encounter [facility] note* Diagnosis History of pre-eclampsia Personal history of other genital system and obstetric disorders Abdominal cramping affecting ([facility]) High-risk in third trimester ([facility])- Primary History of pre-eclampsia Personal history of other genital system and obstetric disorders Single umbilical artery affecting management of mother, antepartum, single gestation ([facility]) 28 weeks gestation of ([facility]) state, incidental Need for vaccination Need for prophylactic vaccination and inoculation against unspecified single disease Encounter for other general counseling or advice on contraception Elevated TSH Nonspecific abnormal results of thyroid function study Supervision of high risk in third trimester ([facility])- Primary Unspecified high-risk History of pre-eclampsia Personal history of other genital system and obstetric disorders Elevated TSH Nonspecific abnormal results of thyroid function study Single umbilical artery affecting management of mother, antepartum, single gestation (HCC) 32 weeks gestation of ([facility]) state, incidental 34 weeks gestation of ([facility])- Primary state, incidental Supervision of high risk in third trimester ([facility]) Unspecified high-risk History of pre-eclampsia Personal history of other genital system and obstetric disorders Obesity affecting in third trimester, unspecified obesity type ([facility]) documented in this encounter [facility] note* Diagnosis History of pre-eclampsia Personal history of other genital system and obstetric disorders Abdominal cramping affecting (HCC) High-risk in third trimester ([facility])- Primary History of pre-eclampsia Personal history of other genital system and obstetric disorders Single umbilical artery affecting management of mother, antepartum, single gestation (HCC) 28 weeks gestation of ([facility]) state, incidental Need for vaccination Need for prophylactic vaccination and inoculation against unspecified single disease Encounter for other general counseling or advice on contraception Elevated TSH Nonspecific abnormal results of thyroid function study Supervision of high risk in third trimester ([facility])- Primary Unspecified high-risk History of pre-eclampsia Personal history of other genital system and obstetric disorders Elevated TSH Nonspecific abnormal results of thyroid function study Single umbilical artery affecting management of mother, antepartum, single gestation ([facility]) 32 weeks gestation of ([facility]) state, incidental 36 weeks gestation of ([facility])- Primary state, incidental Supervision of high risk in third trimester ([facility]) Unspecified high-risk History of pre-eclampsia Personal history of other genital system and obstetric disorders documented in this encounter [facility] note* Diagnosis History of pre-eclampsia Personal history of other genital system and obstetric disorders Abdominal cramping affecting ([facility]) High-risk in third trimester ([facility])- Primary History of pre-eclampsia Personal history of other genital system and obstetric disorders Single umbilical artery affecting management of mother, antepartum, single gestation (HCC) 28 weeks gestation of ([facility]) state, incidental Need for vaccination Need for prophylactic vaccination and inoculation against unspecified single disease Encounter for other general counseling or advice on contraception Elevated TSH Nonspecific abnormal results of thyroid function study Supervision of high risk in third trimester ([facility])- Primary Unspecified high-risk History of pre-eclampsia Personal history of other genital system and obstetric disorders Elevated TSH Nonspecific abnormal results of thyroid function study Single umbilical artery affecting management of mother, antepartum, single gestation ([facility]) 32 weeks gestation of ([facility]) state, incidental Obesity affecting in first trimester, unspecified obesity type ([facility])- Primary Single umbilical artery affecting management of mother, antepartum, single gestation ([facility]) documented in this encounter [facility] note* Diagnosis History of pre-eclampsia Personal history of other genital system and obstetric disorders Abdominal cramping affecting (HCC) High-risk in third trimester (HCC)- Primary History of pre-eclampsia Personal history of other genital system and obstetric disorders Single umbilical artery affecting management of mother, antepartum, single gestation (HCC) 28 weeks gestation of (HCC) state, incidental Need for vaccination Need for prophylactic vaccination and inoculation against unspecified single disease Encounter for other general counseling or advice on contraception Elevated TSH Nonspecific abnormal results of thyroid function study Supervision of high risk in third trimester (HCC)- Primary Unspecified high-risk History of pre-eclampsia Personal history of other genital system and obstetric disorders Elevated TSH Nonspecific abnormal results of thyroid function study Single umbilical artery affecting management of mother, antepartum, single gestation (HCC) 32 weeks gestation of (HCC) state, incidental Supervision of high risk in third trimester (HCC)- Primary Unspecified high-risk History of pre-eclampsia Personal history of other genital system and obstetric disorders Obesity affecting in third trimester, unspecified obesity type ([facility]) 37 weeks gestation of ([facility]) state, incidental Single umbilical artery affecting management of mother, antepartum, single gestation (HCC) Rubella non-immune status, antepartum (HCC) Other specified complication, antepartum Elevated TSH Nonspecific abnormal results of thyroid function study History of anxiety Personal history of other mental disorder documented in this encounter [facility] Discharge instructions* Attachments The following attachments cannot be sent through Care Everywhere. * Bleeding in Early ED ([place]) [facility]: [employer] for referral (narrative)* Diagnostic Procedure Only (Routine) - Authorized Specialty Diagnoses / Procedures Referred By Rosalie gasca Referred To Contact US IMAGING Diagnoses Secondary amenorrhea Procedures US FEMALE PELVIS TRANSVAG US TRANSVAGINAL Mariana Hilario APRN.CNM [address] [place] [address] Us Imaging Referral ID Status Reason Start Date Expiration Date Visits Requested Visits Authorized [id number] Authorized Auto-Generat ed Referral 01/10/2022 02/09/2023 1 1 [facility] for referral (narrative)* Outpatient Procedure (Routine) - Closed Specialty Diagnoses / Procedures Referred By Contac t Referred To [facility] Diagnoses Screening for ischemic heart disease Procedures ECG COMPLETE ECG ROUTINE ECG W/LEAST 12 LDS W/I&R Lavern Lim MD [address] [place] [address] [facility] [place] [address] [place] [address] Referral ID Status Reason Start Date Expiration Date V isits Requested Visits Authorized [id number] Closed Auto-Generate d Referral 05/30/2022 05/30/2023 1 1 [facility] for referral (narrative)* Diagnostic Procedure Only (Urgent) - Closed Specialty Diagnoses / Procedures Referred By Contac t Referred To Contact XR IMAGING Diagnoses Acute pain of right shoulder Procedures XR SHOULDER GENERAL 3V OR MORE AP/TRUE AP/OTHER RIGHT RADEX SHOULDER COMPLETE MINIMUM 2 VIEWS Jose Brink APRN.[employer] [address] [place] [address] [place] [address] Referral ID Status Reason Start Date Expiration Date V isits Requested Visits Authorized [id number] Closed Auto-Generate d Referral 08/02/2021 09/01/2022 1 1 [facility] for referral (narrative)* Diagnostic Procedure Only (Routine) - Closed Specialty Diagnoses / Procedures Referred By Contac t Referred To Contact XR IMAGING Diagnoses Acute left ankle pain Procedures XR ANKLE GENERAL 3V AP/LAT/OBL LEFT X-RAY ANKLE MINIMUM 3 VIEWS Aravind Varma APRN.CNP [address] [place] [address] [place] [address] Referral ID Status Reason Start Date Expiration Date V isits Requested Visits Authorized [id number] Closed Auto-Generate d Referral 02/06/2021 03/08/2022 1 1 * Diagnostic Procedure Only (Routine) - Closed Specialty Diagnoses / Procedures Referred By Contac t Referred To Contact XR IMAGING Diagnoses Acute left ankle pain Procedures XR FOOT GENERAL 3V AP/LAT/OBL LEFT X-RAY FOOT MINIMUM 3 VIEWS Aravind Varma APRN.[employer] [address] [place] [address] [place] [address] Referral ID Status Reason Start Date Expiration Date V isits Requested Visits Authorized [id number] Closed Auto-Generate d Referral 02/06/2021 03/08/2022 1 1 [facility] for referral (narrative)* Diagnostic Procedure Only (Urgent) - Closed Specialty Diagnoses / Procedures Referred By Contac t Referred To Contact XR IMAGING Diagnoses Acute pain of left shoulder Procedures XR SHOULDER GENERAL 3V OR MORE AP/TRUE AP/OTHER LEFT RADEX SHOULDER COMPLETE MINIMUM 2 VIEWS Merly Jefferson APRN.[employer] [address] [place] [address] Xr Imaging [facility] Referral ID Status Reason Start Date Expiration Date V isits Requested Visits Authorized [id number] Closed Auto-Generate d Referral 03/02/2021 04/01/2022 1 1 [facility] for referral (narrative)* Diagnostic Procedure Only (Routine) - Authorized Specialty Diagnoses / Procedures Referred By Contac t Referred To Contact BR IMAGING Diagnoses Inverted nipple Procedures US BREAST LTD LEFT US BREAST UNI REAL TIME WITH IMAGE LIMITED Mariana Hilario APRN.CNM [address] [place] [address] [facility] [address] [place] [address] Referral ID Status Reason Start Date Expiration Date Visits Requested Visits Authorized [id number] Authorized Auto-Generat ed Referral 12/22/2024 1 1 * Diagnostic Procedure Only (Routine) - Authorized Specialty Diagnoses / Procedures Referred By Contac t Referred To Contact BR IMAGING Diagnoses Inverted nipple Procedures US BREAST LTD RIGHT US BREAST UNI REAL TIME WITH IMAGE LIMITED Mariana Hilario APRN.CNM [address] [place] [address] [facility] [address] [place] [address] Referral ID Status Reason Start Date Expiration Date Visits Requested Visits Authorized [id number] Authorized Auto-Generat ed Referral 4 12/22/2024 1 1 [facility] for referral (narrative)* Diagnostic Procedure Only (Routine) - Authorized Specialty Diagnoses / Procedures Referred By Contac t Referred To Contact [facility] Diagnoses Encounter for supervision of high risk in first trimester, antepartum with uncertain dates in first trimester Procedures PELVIC US WHI US PELVIC NONOBSTETRIC REAL-TIME IMAGE COMPLETE Elkin Martinez APRN.[employer] [address] [place] [address] [facility] [address] [place] [address] Referral ID Status Reason Start Date Expiration Date Visits Requested Visits Authorized [id number] Authorized Auto-Generat ed Referral 4 12/06/2024 1 1 * Diagnostic Procedure Only (Routine) - Closed Specialty Diagnoses / Procedures Referred By Contac t Referred To Contact [facility] Diagnoses with uncertain dates in first trimester Procedures OBSTETRIC ULTRASOUND WHI US PREG UTERUS AFTER 1ST TRIMEST GESTATION Elkin Martinez APRN.CNP [address] [place] [address] [facility] [address] [place] [address] Referral ID Status Reason Start Date Expiration Date V isits Requested Visits Authorized [id number] Closed Auto-Generate d Referral 12/07/2023 02/05/2024 1 1 [facility] for referral (narrative)* Diagnostic Procedure Only (Routine) - New Request Specialty Diagnoses / Procedures Referred By Rosalie t Referred To Contact BR IMAGING Diagnoses Inversion of both nipples Procedures MYESHA DIAGNOSTIC BILATERAL DIAGNOSTIC MAMMOGRAPHY COMPUTER-AIDED DETCJ Mariana Hilario APRN.CNM [address] [place] [address] [facility] [address] [place] [address] Referral ID Status Reason Start Date Expiration Date Visits Requested Visits Authorized [id number] New Request Auto-Generat ed Referral 12/14/2023 01/12/2025 1 1 [facility] for referral (narrative)* Diagnostic Procedure Only (Routine) - Authorized Specialty Diagnoses / Procedures Referred By Rosalie t Referred To Contact [facility] Diagnoses 7 weeks gestation of Encounter for supervision of high risk in first trimester, antepartum Thyroid disease Procedures NUCHAL TRANSLUCENCY WHI US NUCHAL TRANSLUCENCY GESTATION Susana Castillo MD [address] [place] [address] [facility] [address] [place] [address] Referral ID Status Reason Start Date Expiration Date Visits Requested Visits Authorized [id number] Authorized Auto-Generat ed Referral 12/27/2024 1 1 * Diagnostic Procedure Only (Routine) - Authorized Specialty Diagnoses / Procedures Referred By Rosalie gasca Referred To Contact [facility] Diagnoses 7 weeks gestation of Encounter for supervision of high risk in first trimester, antepartum Thyroid disease Procedures OBSTETRIC ULTRASOUND WHI US PREG UTERUS AFTER 1ST TRIMEST GESTATION Susana Castillo MD [address] [place] [address] [facility] [address] [place] [address] Referral ID Status Reason Start Date Expiration Date Visits Requested Visits Authorized [id number] Authorized Auto-Generat ed Referral 4 12/27/2024 1 1 [facility] for referral (narrative)* Diagnostic Procedure Only (Routine) - Authorized Specialty Diagnoses / Procedures Referred By Contac t Referred To Contact [facility] Diagnoses Two vessel cord Obesity affecting in first trimester, unspecified obesity type Procedures OBSTETRIC ULTRASOUND WHI US PREG UTERUS AFTER 1ST TRIMEST GESTATION Elsa Chaudhary APRN.CNM [address] [place] [address] [facility] [address] [place] [address] Referral ID Status Reason Start Date Expiration Date Visits Requested Visits Authorized [id number] Authorized Auto-Generat ed Referral 4 01/30/2025 1 1 [facility] for referral (narrative)No reason for referral information availableWThe [facility] Work Phone: Reason for visit Narrative* Diagnostic Procedure Only (Urgent) - Closed Specialty Diagnoses / Procedures Referred By Contac t Referred To Contact XR IMAGING Diagnoses Acute pain of right shoulder Procedures XR SHOULDER GENERAL 3V OR MORE AP/TRUE AP/OTHER RIGHT RADEX SHOULDER COMPLETE MINIMUM 2 VIEWS Jose Brink, GUM REMOVER.[employer] [address] [place] [address] [place] [address] Referral ID Status Reason Start Date Expiration Date V isits Requested Visits Authorized [id number] Closed Auto-Generate d Referral 08/02/2021 09/01/2022 1 1 [facility] for visit Narrative* Diagnostic Procedure Only (Routine) - Closed Specialty Diagnoses / Procedures Referred By Contac t Referred To Contact XR IMAGING Diagnoses Acute left ankle pain Procedures XR ANKLE GENERAL 3V AP/LAT/OBL LEFT X-RAY ANKLE MINIMUM 3 VIEWS Aravind Varma, GUM REMOVER.[employer] [address] [place] [address] [place] [address] Referral ID Status Reason Start Date Expiration Date V isits Requested Visits Authorized [id number] Closed Auto-Generate d Referral 02/06/2021 03/08/2022 1 1 [facility] for visit Narrative* Diagnostic Procedure Only (Urgent) - Closed Specialty Diagnoses / Procedures Referred By Contac t Referred To Contact XR IMAGING Diagnoses Acute pain of left shoulder Procedures XR SHOULDER GENERAL 3V OR MORE AP/TRUE AP/OTHER LEFT RADEX SHOULDER COMPLETE MINIMUM 2 VIEWS Merly Jefferson, GUM REMOVER.[employer] [address] [place] [address] [place] [address] Referral ID Status Reason Start Date Expiration Date V isits Requested Visits Authorized [id number] Closed Auto-Generate d Referral 03/02/2021 04/01/2022 1 1 [facility] for visit Narrative* Diagnostic Procedure Only (Routine) - Closed Specialty Diagnoses / Procedures Referred By Contac t Referred To Contact [facility] Diagnoses Encounter for supervision of high risk in first trimester, antepartum with uncertain dates in first trimester Procedures PELVIC US WHI US PELVIC NONOBSTETRIC REAL-TIME IMAGE COMPLETE Elkin Martinez, G[employer] REMOVER.[employer] [address] [place] [address] [facility] [address] [place] [address] Referral ID Status Reason Start Date Expiration Date V isits Requested Visits Authorized [id number] Closed Auto-Generate d Referral 12/28/2023 12/06/2024 1 1 [facility] Summary Purpose Family History No Family History Records FoundNo Family History Records FoundNo Family History Records FoundNo Family History Records FoundNo Family History Records FoundNo Family History Records FoundNo Family History Records FoundNo Family History Records FoundNo Family History Records Found Advance Directives Documents on File Type Date Recorded Patient Professional Model Expl anation Advance Directive(s) 01/18/2020 5:29 PM Advance Directive(s) 10/31/2019 4:18 AM Advance Directive(s) 10/07/2019 10:09 AM Advance Directive(s) 08/13/2019 1:35 PM Advance Directive(s) 08/12/2019 11:42 PM Advance Directive(s) 08/10/2019 9:45 PM Advance Directive(s) 11/07/2018 1:42 PM Advance Directive(s) 09/20/2017 3:19 PM Advance Directive Response Recorded Date/ Time Living Will No June 05, 2023 6:42am Power of Flight Radio Officer No June 04 6:42am Reason for Referral Specialty Diagnoses / Procedures Referred By Contac t Referred To Contact Diagnoses PCOS (polycystic ovarian syndrome) Class 2 obesity due to excess calories without serious comorbidity with body mass index (BMI) of 39.0 to 39.9 in adult Hypertriglyceridemia Dyslipidemia (high LDL; low HDL) Elevated fasting glucose History of pre-eclampsia Procedures CONSULT TO PREVENTIVE CARD OFFICE/OUTPATIENT NEW HIGH MDM 60-74 MINUTES Mariana Hilario APRN.CNM [address] [place] [address] Referral ID Status Reason Start Date Expiration Date Visits Requested Visits Authorized [id number] Authorized PCP Requested Referral 2 02/03/2023 1 1 Specialty Diagnoses / Procedures Referred By Rosalie gasca Referred To Contact Diagnoses PCOS (polycystic ovarian syndrome) Class 2 obesity due to excess calories without serious comorbidity with body mass index (BMI) of 39.0 to 39.9 in adult Hypertriglyceridemia Dyslipidemia (high LDL; low HDL) Elevated testosterone level Elevated fasting glucose Secondary amenorrhea Procedures ENDOCRINE MEDICAL WEIGHT MANAGEMENT OFFICE/OUTPATIENT NEW HIGH MDM 60-74 MINUTES Mariana Hilario APRN.CNM [address] [place] [address] Referral ID Status Reason Start Date Expiration Date Visits Requested Visits Authorized [id number] Authorized PCP Requested Referral 2 02/03/2023 1 1 Specialty Diagnoses / Procedures Referred By Rosalie t Referred To Contact Diagnoses Class 2 obesity due to excess calories without serious comorbidity with body mass index (BMI) of 39.0 to 39.9 in adult Procedures ENDOCRINOLOGY DIETITIAN VISIT (MNT) OFFICE/OUTPATIENT NEW HIGH MDM 60-74 MINUTES Lupe Grant MD [address] [place] [address] Referral ID Status Reason Start Date Expiration Date Visits Requested Visits Authorized [id number] Authorized PCP Requested Referral 02/23/2022 02/23/2023 1 1 Specialty Diagnoses / Procedures Referred By Contac t Referred To Contact Diagnoses Class 1 obesity with body mass index (BMI) of 34.0 to 34.9 in adult, unspecified obesity type, unspecified whether serious comorbidity present Procedures ENDOCRINOLOGY DIETITIAN VISIT (MNT) MEDICAL NUTRITION ASSMT&IVNTJ INDIV EACH 15 [place] MEDICAL NUTRITION ASSMT&IVNTJ INDIV EACH 15 [place] MEDICAL NUTRITION ASSMT&IVNTJ INDIV EACH 15 [place] MEDICAL NUTRITION ASSMT&IVNTJ INDIV EACH 15 [place] Ed Vaz APRN.[employer] [address] [place] [address] Referral ID Status Reason Start Date Expiration Date Visits Requested Visits Authorized [id number] Authorized PCP Requested Referral 10/12/2022 10/12/2023 1 1 Specialty Diagnoses / Procedures Referred By Contac t Referred To Contact Endocrinology Diagnoses Elevated TSH 7 weeks gestation of Procedures CONSULT TO ENDOCRINOLOGY OFFICE/OUTPATIENT [facility] 60 MINUTES Elkin Martinez APRN.[employer] [address] [place] [address] Referral ID Status Reason Start Date Expiration Date Visits Requested Visits Authorized [id number] Authorized PCP Requested Referral 12/10/2023 12/09/2024 1 1 Chief Complaint and Reason for Visit Chief Complaint right upper arm Chief Complaint Admit Date CRAMPING AND PRESSURE July 25, 2024 2: 20pm Chief Complaint Admit Date CRAMPING AND PRESSURE July 25, 2024 2: 20pm R/O LABOR July 30, 2024 1:52 pm Reason for Visit Admit Date 37 weeks gestation of July 2:20pm Threatened labor at term July 25, 2024 2:20pm Additional Source Comments INFORMATION SOURCE (unrecogn ized section and content) DATE CREATED AUTHOR [facility] DATE CREATED AUTHOR AUTHOR'S ORGANIZ ATION 09/14/2018 [employer] DATE CREATED AUTHOR AUTHOR'S ORGANIZ ATION 03/21/2021 [facility] DATE CREATED AUTHOR AUTHOR'S ORGANIZ ATION 12/25/2023 [facility] DATE CREATED AUTHOR AUTHOR'S ORGANIZ ATION 01/21/2024 [facility] DATE CREATED AUTHOR AUTHOR'S ORGANIZ ATION 05/19/2024 [facility] DATE CREATED AUTHOR AUTHOR'S ORGANIZ ATION 05/20/2024 [facility] DATE CREATED AUTHOR AUTHOR'S ORGANIZ ATION 07/26/2024 [facility] DATE CREATED AUTHOR AUTHOR'S ORGANIZ ATION 07/29/2024 [facility] Source Comments (unrecognize d section and content) In the event this informatio n is protected by the Federal Confidentiality of Alcohol and Drug Abuse Patient Records regulations: The Federal rules restrict any use of the information to criminally investigate or prosecute any alcohol or drug abuse patient.[facility] the event this information is protected by the Federal Confidentiality of Alcohol and Drug Abuse Patient Records regulations: The Federal rules restrict any use of the information to criminally investigate or prosecute any alcohol or drug abuse patient.[facility] CenterIn the event this information is protected by the Federal Confidentiality of Alcohol and Drug Abuse Patient Records regulations: The Federal rules restrict any use of the information to criminally investigate or prosecute any alcohol or drug abuse patient.[facility] CenterIn the event this information is protected by the Federal Confidentiality of Alcohol and Drug Abuse Patient Records regulations: The Federal rules restrict any use of the information to criminally investigate or prosecute any alcohol or drug abuse patient.[facility] CenterIn the event this information is protected by the Federal Confidentiality of Alcohol and Drug Abuse Patient Records regulations: The Federal rules restrict any use of the information to criminally investigate or prosecute any alcohol or drug abuse patient.[facility] CenterIn the event this information is protected by the Federal Confidentiality of Alcohol and Drug Abuse Patient Records regulations: The Federal rules restrict any use of the information to criminally investigate or prosecute any alcohol or drug abuse patient.[facility] CenterIn the event this information is protected by the Federal Confidentiality of Alcohol and Drug Abuse Patient Records regulations: The Federal rules restrict any use of the information to criminally investigate or prosecute any alcohol or drug abuse patient.[facility] CenterIn the event this information is protected by the Federal Confidentiality of Alcohol and Drug Abuse Patient Records regulations: The Federal rules restrict any use of the information to criminally investigate or prosecute any alcohol or drug abuse patient.[facility] CenterIn the event this information is protected by the Federal Confidentiality of Alcohol and Drug Abuse Patient Records regulations: The Federal rules restrict any use of the information to criminally investigate or prosecute any alcohol or drug abuse patient.[facility] CenterIn the event this information is protected by the Federal Confidentiality of Alcohol and Drug Abuse Patient Records regulations: The Federal rules restrict any use of the information to criminally investigate or prosecute any alcohol or drug abuse patient.[facility] CenterIn the event this information is protected by the Federal Confidentiality of Alcohol and Drug Abuse Patient Records regulations: The Federal rules restrict any use of the information to criminally investigate or prosecute any alcohol or drug abuse patient.[facility] CenterIn the event this information is protected by the Federal Confidentiality of Alcohol and Drug Abuse Patient Records regulations: The Federal rules restrict any use of the information to criminally investigate or prosecute any alcohol or drug abuse patient.[facility] CenterIn the event this information is protected by the Federal Confidentiality of Alcohol and Drug Abuse Patient Records regulations: The Federal rules restrict any use of the information to criminally investigate or prosecute any alcohol or drug abuse patient.[facility] CenterIn the event this information is protected by the Federal Confidentiality of Alcohol and Drug Abuse Patient Records regulations: The Federal rules restrict any use of the information to criminally investigate or prosecute any alcohol or drug abuse patient.[facility] CenterIn the event this information is protected by the Federal Confidentiality of Alcohol and Drug Abuse Patient Records regulations: The Federal rules restrict any use of the information to criminally investigate or prosecute any alcohol or drug abuse patient.[facility] CenterIn the event this information is protected by the Federal Confidentiality of Alcohol and Drug Abuse Patient Records regulations: The Federal rules restrict any use of the information to criminally investigate or prosecute any alcohol or drug abuse patient.[facility] CenterIn the event this information is protected by the Federal Confidentiality of Alcohol and Drug Abuse Patient Records regulations: The Federal rules restrict any use of the information to criminally investigate or prosecute any alcohol or drug abuse patient.[facility] CenterIn the event this information is protected by the Federal Confidentiality of Alcohol and Drug Abuse Patient Records regulations: The Federal rules restrict any use of the information to criminally investigate or prosecute any alcohol or drug abuse patient.[facility] CenterIn the event this information is protected by the Federal Confidentiality of Alcohol and Drug Abuse Patient Records regulations: The Federal rules restrict any use of the information to criminally investigate or prosecute any alcohol or drug abuse patient.[facility] CenterIn the event this information is protected by the Federal Confidentiality of Alcohol and Drug Abuse Patient Records regulations: The Federal rules restrict any use of the information to criminally investigate or prosecute any alcohol or drug abuse patient.[facility] CenterIn the event this information is protected by the Federal Confidentiality of Alcohol and Drug Abuse Patient Records regulations: The Federal rules restrict any use of the information to criminally investigate or prosecute any alcohol or drug abuse patient.[facility] CenterIn the event this information is protected by the Federal Confidentiality of Alcohol and Drug Abuse Patient Records regulations: The Federal rules restrict any use of the information to criminally investigate or prosecute any alcohol or drug abuse patient.[facility] CenterIn the event this information is protected by the Federal Confidentiality of Alcohol and Drug Abuse Patient Records regulations: The Federal rules restrict any use of the information to criminally investigate or prosecute any alcohol or drug abuse patient.[facility] CenterIn the event this information is protected by the Federal Confidentiality of Alcohol and Drug Abuse Patient Records regulations: The Federal rules restrict any use of the information to criminally investigate or prosecute any alcohol or drug abuse patient.[facility] CenterIn the event this information is protected by the Federal Confidentiality of Alcohol and Drug Abuse Patient Records regulations: The Federal rules restrict any use of the information to criminally investigate or prosecute any alcohol or drug abuse patient.[facility] CenterIn the event this information is protected by the Federal Confidentiality of Alcohol and Drug Abuse Patient Records regulations: The Federal rules restrict any use of the information to criminally investigate or prosecute any alcohol or drug abuse patient.[facility] CenterIn the event this information is protected by the Federal Confidentiality of Alcohol and Drug Abuse Patient Records regulations: The Federal rules restrict any use of the information to criminally investigate or prosecute any alcohol or drug abuse patient.[facility] CenterIn the event this information is protected by the Federal Confidentiality of Alcohol and Drug Abuse Patient Records regulations: The Federal rules restrict any use of the information to criminally investigate or prosecute any alcohol or drug abuse patient.[facility] CenterIn the event this information is protected by the Federal Confidentiality of Alcohol and Drug Abuse Patient Records regulations: The Federal rules restrict any use of the information to criminally investigate or prosecute any alcohol or drug abuse patient.[facility] CenterIn the event this information is protected by the Federal Confidentiality of Alcohol and Drug Abuse Patient Records regulations: The Federal rules restrict any use of the information to criminally investigate or prosecute any alcohol or drug abuse patient.[facility] CenterIn the event this information is protected by the Federal Confidentiality of Alcohol and Drug Abuse Patient Records regulations: The Federal rules restrict any use of the information to criminally investigate or prosecute any alcohol or drug abuse patient.[facility] CenterIn the event this information is protected by the Federal Confidentiality of Alcohol and Drug Abuse Patient Records regulations: The Federal rules restrict any use of the information to criminally investigate or prosecute any alcohol or drug abuse patient.[facility] CenterIn the event this information is protected by the Federal Confidentiality of Alcohol and Drug Abuse Patient Records regulations: The Federal rules restrict any use of the information to criminally investigate or prosecute any alcohol or drug abuse patient.[facility] CenterIn the event this information is protected by the Federal Confidentiality of Alcohol and Drug Abuse Patient Records regulations: The Federal rules restrict any use of the information to criminally investigate or prosecute any alcohol or drug abuse patient.[facility] CenterIn the event this information is protected by the Federal Confidentiality of Alcohol and Drug Abuse Patient Records regulations: The Federal rules restrict any use of the information to criminally investigate or prosecute any alcohol or drug abuse patient.[facility] CenterIn the event this information is protected by the Federal Confidentiality of Alcohol and Drug Abuse Patient Records regulations: The Federal rules restrict any use of the information to criminally investigate or prosecute any alcohol or drug abuse patient.[facility] CenterIn the event this information is protected by the Federal Confidentiality of Alcohol and Drug Abuse Patient Records regulations: The Federal rules restrict any use of the information to criminally investigate or prosecute any alcohol or drug abuse patient.[facility] CenterIn the event this information is protected by the Federal Confidentiality of Alcohol and Drug Abuse Patient Records regulations: The Federal rules restrict any use of the information to criminally investigate or prosecute any alcohol or drug abuse patient.[facility] CenterIn the event this information is protected by the Federal Confidentiality of Alcohol and Drug Abuse Patient Records regulations: The Federal rules restrict any use of the information to criminally investigate or prosecute any alcohol or drug abuse patient.[facility] CenterIn the event this information is protected by the Federal Confidentiality of Alcohol and Drug Abuse Patient Records regulations: The Federal rules restrict any use of the information to criminally investigate or prosecute any alcohol or drug abuse patient.[facility] CenterIn the event this information is protected by the Federal Confidentiality of Alcohol and Drug Abuse Patient Records regulations: The Federal rules restrict any use of the information to criminally investigate or prosecute any alcohol or drug abuse patient.[facility] CenterIn the event this information is protected by the Federal Confidentiality of Alcohol and Drug Abuse Patient Records regulations: The Federal rules restrict any use of the information to criminally investigate or prosecute any alcohol or drug abuse patient.[facility] CenterIn the event this information is protected by the Federal Confidentiality of Alcohol and Drug Abuse Patient Records regulations: The Federal rules restrict any use of the information to criminally investigate or prosecute any alcohol or drug abuse patient.[facility] CenterIn the event this information is protected by the Federal Confidentiality of Alcohol and Drug Abuse Patient Records regulations: The Federal rules restrict any use of the information to criminally investigate or prosecute any alcohol or drug abuse patient.[facility] CenterIn the event this information is protected by the Federal Confidentiality of Alcohol and Drug Abuse Patient Records regulations: The Federal rules restrict any use of the information to criminally investigate or prosecute any alcohol or drug abuse patient.[facility] CenterIn the event this information is protected by the Federal Confidentiality of Alcohol and Drug Abuse Patient Records regulations: The Federal rules restrict any use of the information to criminally investigate or prosecute any alcohol or drug abuse patient.[facility] CenterIn the event this information is protected by the Federal Confidentiality of Alcohol and Drug Abuse Patient Records regulations: The Federal rules restrict any use of the information to criminally investigate or prosecute any alcohol or drug abuse patient.[facility] CenterIn the event this information is protected by the Federal Confidentiality of Alcohol and Drug Abuse Patient Records regulations: The Federal rules restrict any use of the information to criminally investigate or prosecute any alcohol or drug abuse patient.[facility] CenterIn the event this information is protected by the Federal Confidentiality of Alcohol and Drug Abuse Patient Records regulations: The Federal rules restrict any use of the information to criminally investigate or prosecute any alcohol or drug abuse patient.[facility] CenterIn the event this information is protected by the Federal Confidentiality of Alcohol and Drug Abuse Patient Records regulations: The Federal rules restrict any use of the information to criminally investigate or prosecute any alcohol or drug abuse patient.[facility] CenterIn the event this information is protected by the Federal Confidentiality of Alcohol and Drug Abuse Patient Records regulations: The Federal rules restrict any use of the information to criminally investigate or prosecute any alcohol or drug abuse patient.[facility] CenterIn the event this information is protected by the Federal Confidentiality of Alcohol and Drug Abuse Patient Records regulations: The Federal rules restrict any use of the information to criminally investigate or prosecute any alcohol or drug abuse patient.[facility] CenterIn the event this information is protected by the Federal Confidentiality of Alcohol and Drug Abuse Patient Records regulations: The Federal rules restrict any use of the information to criminally investigate or prosecute any alcohol or drug abuse patient.[facility] CenterIn the event this information is protected by the Federal Confidentiality of Alcohol and Drug Abuse Patient Records regulations: The Federal rules restrict any use of the information to criminally investigate or prosecute any alcohol or drug abuse patient.[facility] CenterIn the event this information is protected by the Federal Confidentiality of Alcohol and Drug Abuse Patient Records regulations: The Federal rules restrict any use of the information to criminally investigate or prosecute any alcohol or drug abuse patient.[facility] CenterIn the event this information is protected by the Federal Confidentiality of Alcohol and Drug Abuse Patient Records regulations: The Federal rules restrict any use of the information to criminally investigate or prosecute any alcohol or drug abuse patient.[facility] CenterIn the event this information is protected by the Federal Confidentiality of Alcohol and Drug Abuse Patient Records regulations: The Federal rules restrict any use of the information to criminally investigate or prosecute any alcohol or drug abuse patient.[facility] CenterIn the event this information is protected by the Federal Confidentiality of Alcohol and Drug Abuse Patient Records regulations: The Federal rules restrict any use of the information to criminally investigate or prosecute any alcohol or drug abuse patient.[facility] CenterIn the event this information is protected by the Federal Confidentiality of Alcohol and Drug Abuse Patient Records regulations: The Federal rules restrict any use of the information to criminally investigate or prosecute any alcohol or drug abuse patient.[facility] CenterIn the event this information is protected by the Federal Confidentiality of Alcohol and Drug Abuse Patient Records regulations: The Federal rules restrict any use of the information to criminally investigate or prosecute any alcohol or drug abuse patient.[facility] CenterIn the event this information is protected by the Federal Confidentiality of Alcohol and Drug Abuse Patient Records regulations: The Federal rules restrict any use of the information to criminally investigate or prosecute any alcohol or drug abuse patient.[facility] CenterIn the event this information is protected by the Federal Confidentiality of Alcohol and Drug Abuse Patient Records regulations: The Federal rules restrict any use of the information to criminally investigate or prosecute any alcohol or drug abuse patient.[facility] CenterIn the event this information is protected by the Federal Confidentiality of Alcohol and Drug Abuse Patient Records regulations: The Federal rules restrict any use of the information to criminally investigate or prosecute any alcohol or drug abuse patient.[facility] CenterIn the event this information is protected by the Federal Confidentiality of Alcohol and Drug Abuse Patient Records regulations: The Federal rules restrict any use of the information to criminally investigate or prosecute any alcohol or drug abuse patient.[facility] CenterIn the event this information is protected by the Federal Confidentiality of Alcohol and Drug Abuse Patient Records regulations: The Federal rules restrict any use of the information to criminally investigate or prosecute any alcohol or drug abuse patient.[facility] CenterIn the event this information is protected by the Federal Confidentiality of Alcohol and Drug Abuse Patient Records regulations: The Federal rules restrict any use of the information to criminally investigate or prosecute any alcohol or drug abuse patient.[facility] CenterIn the event this information is protected by the Federal Confidentiality of Alcohol and Drug Abuse Patient Records regulations: The Federal rules restrict any use of the information to criminally investigate or prosecute any alcohol or drug abuse patient.[facility] CenterIn the event this information is protected by the Federal Confidentiality of Alcohol and Drug Abuse Patient Records regulations: The Federal rules restrict any use of the information to criminally investigate or prosecute any alcohol or drug abuse patient.[facility] CenterIn the event this information is protected by the Federal Confidentiality of Alcohol and Drug Abuse Patient Records regulations: The Federal rules restrict any use of the information to criminally investigate or prosecute any alcohol or drug abuse patient.[facility] CenterIn the event this information is protected by the Federal Confidentiality of Alcohol and Drug Abuse Patient Records regulations: The Federal rules restrict any use of the information to criminally investigate or prosecute any alcohol or drug abuse patient.[facility] CenterIn the event this information is protected by the Federal Confidentiality of Alcohol and Drug Abuse Patient Records regulations: The Federal rules restrict any use of the information to criminally investigate or prosecute any alcohol or drug abuse patient.[facility] CenterIn the event this information is protected by the Federal Confidentiality of Alcohol and Drug Abuse Patient Records regulations: The Federal rules restrict any use of the information to criminally investigate or prosecute any alcohol or drug abuse patient.[facility] CenterIn the event this information is protected by the Federal Confidentiality of Alcohol and Drug Abuse Patient Records regulations: The Federal rules restrict any use of the information to criminally investigate or prosecute any alcohol or drug abuse patient.[facility] CenterIn the event this information is protected by the Federal Confidentiality of Alcohol and Drug Abuse Patient Records regulations: The Federal rules restrict any use of the information to criminally investigate or prosecute any alcohol or drug abuse patient.[facility] CenterIn the event this information is protected by the Federal Confidentiality of Alcohol and Drug Abuse Patient Records regulations: The Federal rules restrict any use of the information to criminally investigate or prosecute any alcohol or drug abuse patient.[facility] CenterIn the event this information is protected by the Federal Confidentiality of Alcohol and Drug Abuse Patient Records regulations: The Federal rules restrict any use of the information to criminally investigate or prosecute any alcohol or drug abuse patient.[facility] CenterIn the event this information is protected by the Federal Confidentiality of Alcohol and Drug Abuse Patient Records regulations: The Federal rules restrict any use of the information to criminally investigate or prosecute any alcohol or drug abuse patient.[facility] CenterIn the event this information is protected by the Federal Confidentiality of Alcohol and Drug Abuse Patient Records regulations: The Federal rules restrict any use of the information to criminally investigate or prosecute any alcohol or drug abuse patient.[facility] CenterIn the event this information is protected by the Federal Confidentiality of Alcohol and Drug Abuse Patient Records regulations: The Federal rules restrict any use of the information to criminally investigate or prosecute any alcohol or drug abuse patient.[facility] CenterIn the event this information is protected by the Federal Confidentiality of Alcohol and Drug Abuse Patient Records regulations: The Federal rules restrict any use of the information to criminally investigate or prosecute any alcohol or drug abuse patient.[facility] CenterIn the event this information is protected by the Federal Confidentiality of Alcohol and Drug Abuse Patient Records regulations: The Federal rules restrict any use of the information to criminally investigate or prosecute any alcohol or drug abuse patient.[facility] CenterIn the event this information is protected by the Federal Confidentiality of Alcohol and Drug Abuse Patient Records regulations: The Federal rules restrict any use of the information to criminally investigate or prosecute any alcohol or drug abuse patient.[facility] CenterIn the event this information is protected by the Federal Confidentiality of Alcohol and Drug Abuse Patient Records regulations: The Federal rules restrict any use of the information to criminally investigate or prosecute any alcohol or drug abuse patient.[facility] CenterIn the event this information is protected by the Federal Confidentiality of Alcohol and Drug Abuse Patient Records regulations: The Federal rules restrict any use of the information to criminally investigate or prosecute any alcohol or drug abuse patient.[facility] CenterIn the event this information is protected by the Federal Confidentiality of Alcohol and Drug Abuse Patient Records regulations: The Federal rules restrict any use of the information to criminally investigate or prosecute any alcohol or drug abuse patient.[facility] CenterIn the event this information is protected by the Federal Confidentiality of Alcohol and Drug Abuse Patient Records regulations: The Federal rules restrict any use of the information to criminally investigate or prosecute any alcohol or drug abuse patient.[facility] CenterIn the event this information is protected by the Federal Confidentiality of Alcohol and Drug Abuse Patient Records regulations: The Federal rules restrict any use of the information to criminally investigate or prosecute any alcohol or drug abuse patient.[facility] CenterIn the event this information is protected by the Federal Confidentiality of Alcohol and Drug Abuse Patient Records regulations: The Federal rules restrict any use of the information to criminally investigate or prosecute any alcohol or drug abuse patient.[facility] CenterIn the event this information is protected by the Federal Confidentiality of Alcohol and Drug Abuse Patient Records regulations: The Federal rules restrict any use of the information to criminally investigate or prosecute any alcohol or drug abuse patient.[facility] CenterIn the event this information is protected by the Federal Confidentiality of Alcohol and Drug Abuse Patient Records regulations: The Federal rules restrict any use of the information to criminally investigate or prosecute any alcohol or drug abuse patient.[facility] CenterIn the event this information is protected by the Federal Confidentiality of Alcohol and Drug Abuse Patient Records regulations: The Federal rules restrict any use of the information to criminally investigate or prosecute any alcohol or drug abuse patient.[facility] CenterIn the event this information is protected by the Federal Confidentiality of Alcohol and Drug Abuse Patient Records regulations: The Federal rules restrict any use of the information to criminally investigate or prosecute any alcohol or drug abuse patient.[facility] CenterIn the event this information is protected by the Federal Confidentiality of Alcohol and Drug Abuse Patient Records regulations: The Federal rules restrict any use of the information to criminally investigate or prosecute any alcohol or drug abuse patient.[facility] Reason for Visit (unrecogniz ed section and content) Reason Comments Extended Work Excuse Reason Comments Pain, Back upper back right lalit e Reason Comments Sore Throat pain rated 6, x 2 da ys + home Covid Ear Pain (RT) ear pain , loss of smell, cough chest tighness Reason Comments Back Pain Pt reported upper ba ck pain rated intermittent 10, x3 days, N/V. Reason Comments Amenorrhea Reason Comments Amenorrhea Reason Comments Medical Weight Management Specialty Diagnoses / Procedures Referred By Rosalie gasca Referred To Contact Diagnoses PCOS (polycystic ovarian syndrome) Class 2 obesity due to excess calories without serious comorbidity with body mass index (BMI) of 39.0 to 39.9 in adult Hypertriglyceridemia Dyslipidemia (high LDL; low HDL) Elevated testosterone level Elevated fasting glucose Secondary amenorrhea Procedures ENDOCRINE MEDICAL WEIGHT MANAGEMENT OFFICE/OUTPATIENT [facility] HIGH MDM 60-74 MINUTES Mariana Hilario APRN.CNMoisés [address] [place] [address] Referral ID Status Reason Start Date Expiration Date V isits Requested Visits Authorized [id number] Closed PCP Requested Referral 02/03/2022 02/03/2023 1 1 Reason Comments Refill Request Reason Onset Date Comments Refill Request 03/02/2022 Reason Comments Consult Specialty Diagnoses / Procedures Referred By Contac t Referred To Contact Diagnoses PCOS (polycystic ovarian syndrome) Class 2 obesity due to excess calories without serious comorbidity with body mass index (BMI) of 39.0 to 39.9 in adult Hypertriglyceridemia Dyslipidemia (high LDL; low HDL) Elevated fasting glucose History of pre-eclampsia Procedures CONSULT TO PREVENTIVE CARD OFFICE/OUTPATIENT NEW HIGH MDM 60-74 MINUTES Mariana Hilario, ZANE.CNM [address] [place] [address] Referral ID Status Reason Start Date Expiration Date V isits Requested Visits Authorized [id number] Closed PCP Requested Referral 02/03/2022 02/03/2023 1 1 Reason Comments Follow Up Reason Comments prior auth Patient called reque sting a prior authorization for semaglutide (OZEMPIC) 0.25 mg or 0.5 mg(2 mg/1.5 mL) pen. Patient stated she was told it can take up to 3 weeks. Pharmacist at [facility] told pt they sent over forms to be completed by provider because they cannot fill prescriptions without the authorization. Patient can be contacted at [phone]. Reason Comments Medication Preauthorization Ozempic Reason Comments Medication Problem Ozempic Reason Comments Medication Problem Reason Comments Appointment Reason Comments Cough Cough, fever and jenifer st congestion x 2 days Reason Comments Medical Weight Management Reason Comments Medication Authorization [employer]om[employer] Reason Comments Medical Nutrition Therapy Weight managem ent Specialty Diagnoses / Procedures Referred By Rosalie t Referred To Contact Diagnoses Class 2 obesity with body mass index (BMI) of 37.0 to 37.9 in adult, unspecified obesity type, unspecified whether serious comorbidity present Procedures ENDOCRINOLOGY DIETITIAN VISIT (MNT) MEDICAL NUTRITION ASSMT&IVNTJ INDIV EACH 15 [place] MEDICAL NUTRITION ASSMT&IVNTJ INDIV EACH 15 [place] MEDICAL NUTRITION ASSMT&IVNTJ INDIV EACH 15 [place] MEDICAL NUTRITION ASSMT&IVNTJ INDIV EACH 15 [place] Ed Vaz, GUM REMOVER.[employer]OSSBOW MAKER [address] [place] [address] Referral ID Status Reason Start Date Expiration Date V isits Requested Visits Authorized [id number] Closed PCP Requested Referral 05/09/2023 05/08/2024 1 1 Reason Comments Medication Authorization Phentermine Reason Comments Well Woman Reason Comments Opened In Error Reason Onset Date Comments Initial OB Visit Immunizations 12/07/2023 Flu vaccination Specialty Diagnoses / Procedures Referred By Contac t Referred To Contact [facility] Diagnoses with uncertain dates in first trimester Procedures OBSTETRIC ULTRASOUND WHI US PREG UTERUS AFTER 1ST TRIMEST GESTATION Elkin Martinez, GUM REMOVER.[employer]OSSB[employer] MAKER [address] [place] [address] [address] Referral ID Status Reason Start Date Expiration Date V isits Requested Visits Authorized [id number] Closed Auto-Generate d Referral 12/07/2023 02/05/2024 1 1 Reason Comments PRAF Reason Comments Results Reason Comments Thyroid Problem Reason Comments Orders Reason Comments Vaginal Bleeding 6 weeks , br own spotting this am x1 on toilet paper only. + abdominal/back pain, LMP 10/16/23 G3 P 1 AB 1. OBGYN [facility] Reason Onset Date Comments Care 12/28/2023 Reason Onset Date Comments Care 01/31/2024 Reason Comments US Specialty Diagnoses / Procedures Referred By Contac t Referred To Contact [facility] Diagnoses 7 weeks gestation of Encounter for supervision of high risk in first trimester, antepartum Thyroid disease Procedures NUCHAL TRANSLUCENCY WHI US NUCHAL TRANSLUCENCY 1ST GESTATION Susana Castillo MD [address] [place] [address] [facility] [address] [place] [id number] Referral ID Status Reason Start Date Expiration Date V isits Requested Visits Authorized [id number] Closed Auto-Generate d Referral 12/28/2023 12/27/2024 1 1 Reason Comments Results Reason Comments Headache Body aches, ear pain , nausea, sore throat, cough, chest feels on fire x 4 days Reason Comments Question (OB Question) Reason Onset Date Comments Care 02/28/2024 Specialty Diagnoses / Procedures Referred By Contac t Referred To Contact [facility] Diagnoses Two vessel cord Obesity affecting in first trimester, unspecified obesity type Procedures OBSTETRIC ULTRASOUND WHI US PREG UTERUS AFTER 1ST TRIMEST GESTATION Elsa Chaudhary APRN.CNM [address] [place] [address] [address] Referral ID Status Reason Start Date Expiration Date V isits Requested Visits Authorized [id number] Closed Auto-Generate d Referral 01/31/2024 01/30/2025 1 1 Reason Onset Date Comments Care 03/28/2024 Specialty Diagnoses / Procedures Referred By Contac t Referred To Contact [facility] Diagnoses 7 weeks gestation of Encounter for supervision of high risk in first trimester, antepartum Thyroid disease Procedures OBSTETRIC ULTRASOUND WHI US PREG UTERUS AFTER 1ST TRIMEST GESTATION Susana Castillo MD [address] [place] [address] Phone: tel: fax: [address] [phone] Referral ID Status Reason Start Date Expiration Date V isits Requested Visits Authorized [id number] Closed Auto-Generate d Referral 12/28/2023 12/27/2024 1 1 Reason Comments Lab & Test Results Reason Comments Consult Elevated TSH 20 Weeks Specialty Diagnoses / Procedures Referred By Contac t Referred To Contact Endocrinology Diagnoses Elevated TSH 7 weeks gestation of Procedures CONSULT TO ENDOCRINOLOGY OFFICE/OUTPATIENT NEW HIGH MDM 60 MINUTES Elkin Martinez, ZANE.[employer] MAKER [address] [place] [address] Phone: tel: fax: Referral ID Status Reason Start Date Expiration Date V isits Requested Visits Authorized [id number] Closed PCP Requested Referral 12/10/2023 12/09/2024 1 1 Reason Comments Assembler Wet Wash - Other PRAF Reason Onset Date Comments Care 04/22/2024 Specialty Diagnoses / Procedures Referred By Contac t Referred To Contact [facility] Diagnoses Single umbilical artery affecting management of mother, antepartum, single gestation (HCC) Supervision of high risk in second trimester ([facility]) Procedures OBSTETRIC ULTRASOUND WHI US PREG UTERUS AFTER 1ST TRIMEST GESTATION Susana Castillo MD [address] [place] [address] Phone: tel: fax: [address] [address] Referral ID Status Reason Start Date Expiration Date V isits Requested Visits Authorized [id number] Closed Auto-Generate d Referral 03/31/2024 03/31/2025 1 1 Reason Onset Date Comments Care 05/21/2024 Reason Comments Cough right ear pain, sore throat x 5 days, chest congestion x this am Reason Onset Date Comments Care 06/04/2024 Specialty Diagnoses / Procedures Referred By Lauraac t Referred To Contact [facility] Diagnoses Single umbilical artery affecting management of mother, antepartum, single gestation (HCC) 28 weeks gestation of ([facility]) High-risk in third trimester ([facility]) Procedures OBSTETRIC ULTRASOUND WHI US PREG UTERUS AFTER 1ST TRIMEST GESTATION Alfred Childress MD [address] [place] [address] Phone: tel: fax: [address] [phone] Referral ID Status Reason Start Date Expiration Date V isits Requested Visits Authorized [id number] Closed Auto-Generate d Referral 05/21/2024 05/21/2025 3 1 Reason Onset Date Comments Care 07/02/2024 Reason Onset Date Comments Care 07/16/2024 Reason Onset Date Comments feet swollen 07/19/2024 Reason Comments Patient Update Reason Onset Date Comments Care 07/23/2024 Care Teams (unrecognized sec tion and content) Gas Fitter Apprentice Relationship Specialty [place] [address] [place] [address] PCP - General Family Practice 08/03/20 [place] [address] [place] [address] PCP Resident Family Practice 08/03/20 Gas Fitter Apprentice Relationship Specialty Start Date End Date Matthew Vera MD [address] [place] [id number] PCP - General Family Practice 08/03/20 Mauricio Aquino MD [address] [place] [phone] PCP Resident Family Practice 08/03/20 Gas Fitter Apprentice Relationship Specialty Start Date End Date Jose Haynes MD [address] [place] [address] PCP - General Family Medicine 05/08/18 Judd Noble MD [address] [place] [address] [place] [address] Physician Obstetrics/Gynecology 11/11/19 Gas Fitter Apprentice Relationship Specialty Start Date End Date Matthew Vera MD [address] [place] [id number] PCP - General Family Practice 08/03/20 Mauricio Aquino MD [address] [place] [id number] PCP Resident Family Practice 08/03/20 Gas Fitter Apprentice Relationship Specialty Start Date End Date Matthew Vera MD [address] [place] [id number] PCP - General Family Medicine 08/03/20 Mauricio Aquino MD [address] [place] [phone] PCP Resident Family Medicine 08/03/20 Gas Fitter Apprentice Relationship Specialty Start Date End Date Matthew Vera MD [address] [place] [phone] PCP - General Family Medicine 08/03/20 Mauricio Aquino MD [address] [place] [phone] PCP Resident Family Medicine 08/03/20 Gas Fitter Apprentice Relationship Specialty Start Date End Date Matthew Vera MD [address] [place] [phone] PCP - General Family Medicine 08/03/20 Mauricio Aquino MD [address] [place] [phone] PCP Resident Family Medicine 08/03/20 Gas Fitter Apprentice Relationship Specialty Start Date End Date Jose Haynes MD [address] [place] [address] PCP - General Family Medicine 05/08/18 Judd Noble MD [address] [place] [address] [place] [address] Physician Obstetrics/Gynecology 11/11/19 Gas Fitter Apprentice Relationship Specialty Start Date End Date Matthew Vera MD [address] [place] [phone] PCP - General Family Medicine 08/03/20 Mauricio Aquino MD [address] [place] [phone] PCP Resident Family Medicine 08/03/20 Gas Fitter Apprentice Relationship Specialty Start Date End Date Matthew Vera MD [address] [place] [phone] PCP - General Family Medicine 08/03/20 Mauricio Aquino MD [address] [place] [phone] PCP Resident Family Medicine 08/03/20 Gas Fitter Apprentice Relationship Specialty Start Date End Date Matthew Vera MD [address] [place] [phone] PCP - General Family Medicine 08/03/20 Mauricio Aquino MD [address] [place] [phone] PCP Resident Family Medicine 08/03/20 Gas Fitter Apprentice Relationship Specialty Start Date End Date Matthew Vera MD [address] [place] [phone] PCP - General Family Medicine 08/03/20 Mauricio Aquino MD [address] [place] [id number] PCP Resident Family Medicine 08/03/20 [employer]ice Relationship Specialty Start Date End Date Matthew Vera MD [address] [place] [address] [phone] PCP - General Family Medicine 08/03/20 Mauricio Aquino MD [address] [place] [address] 82442 PCP Resident Family Medicine 08/03/20 Gas [employer]itter Apprentice Relationship Specialty Start Date End Date Matthew Vera MD [address] [place] [address] [phone] PCP - General Family Medicine 08/03/20 Mauricio Aquino MD [address] [place] [address] 89117 PCP Resident Family Medicine 08/03/20 Gas Fitter Apprentice Relationship Specialty Start Date End Date Matthew Vera MD [address] [place] [address] 82971 PCP - General Family Medicine 08/03/20 Mauricio Aquino MD [address] [place] [address] 92343 PCP Resident Family Medicine 08/03/20 Gas Fitter Apprentice Relationship Specialty Start Date End Date Karon Odonnell MD [address] [place] [address] 82006 PCP - General Family Medicine 08/05/22 Venancio Beckford MD [address] [place] [address] 24623 PCP Resident Family Medicine 08/05/22 Gas Fitter Apprentice Relationship Specialty Start Date End Date Matthew Vera MD [address] [place] [address] 31061 PCP - General Family Medicine 08/03/20 08/04/22 Karon Odonnell MD [address] [place] [address] 38755 PCP - General Family Medicine 08/05/22 Dora Santacruz (Rn)MD [address] [place] [address] 58760 PCP Resident Family Medicine 08/03/20 08/04/22 Venancio Beckford MD [address] [place] [address] 58808 PCP Resident Family Medicine 08/05/22 Gas Fitter Apprentice Relationship Specialty Start Date End Date Karon Odonnell MD [address] [place] [address] [phone] PCP - General Family Medicine 08/05/22 Venancio Beckford MD [address] [place] [address] 73474 PCP Resident Family Medicine 08/05/22 Gas Fitter Apprentice Relationship Specialty Start Date End Date Karon Odonnell MD [address] [place] [address] 69435 PCP - General Family Medicine 08/05/22 Venancio Beckford MD [address] [place] [address] 32986 PCP Resident Family Medicine 08/05/22 Gas Fitter Apprentice Relationship Specialty Start Date End Date Karon Odonnell MD [address] [place] [address] [phone] PCP - General Family Medicine 08/05/22 Venancio Beckford MD [address] [place] [address] 86431 PCP Resident Family Medicine 08/05/22 Gas Fitter Apprentice Relationship Specialty Start Date End Date Karon Odonnell MD [address] [place] [address] 60057 PCP - General Family Medicine 08/05/22 Venancio Beckford MD [address] [place] [address] 83951 PCP Resident Family Medicine 08/05/22 Gas Fitter Apprentice Relationship Specialty Start Date End Date Karon Odonnell MD [address] [place] [address] 59971 PCP - General Family Medicine 08/05/22 Venancio Beckford MD [address] [place] [address] 15275 PCP Resident Family Medicine 08/05/22 Gas Fitter Apprentice Relationship Specialty Start Date End Date Karon Odonnell MD [address] [place] [address] 29317 PCP - General Family Medicine 08/05/22 Venancio Beckford MD [address] [place] [address] 89606 PCP Resident Family Medicine 08/05/22 Gas Fitter Apprentice Relationship Specialty Start Date End Date Karon Odonnell MD [address] [place] [address] PCP - General Family Medicine 08/05/22 Venancio Beckford MD [address] [place] [address] PCP Resident Family Medicine 08/05/22 Gas Fitter Apprentice Relationship Specialty Start Date End Date Karon Odonnell MD [address] [place] [address] PCP - General Family Medicine 08/05/22 Venancio Beckford MD [address] [place] [address] 35286 PCP Resident Family Medicine 08/05/22 Team Status: Active Member Role Status Dates No Primary Care Physician Primary Care Provider Active Team Status: Inactive Member Role Status Dates No Primary Care Physician Primary Care Provider Active Dr. Yo Baker , DO Emergency Provider Active [employer]ice Relationship Specialty Start Date End Date Karon Odonnell MD [address] [place] [address] PCP - General Family Medicine 08/05/22 Venancio Beckford MD [address] [place] [address] 24200 PCP Resident Family Medicine 08/05/22 Gas Fitter Apprentice Relationship Specialty Start Date End Date Karon Odonnell MD [address] [place] [address] PCP - General Family Medicine 08/05/22 Venancio Beckford MD [address] [place] [address] 09383 PCP Resident Family Medicine 08/05/22 Gas Fitter Apprentice Relationship Specialty Start Date End Date Matthew Vera MD [address] [place] [address] PCP - General Family Medicine 08/03/20 08/04/22 Dora Santacruz Rn, MD [address] [place] [address] PCP Resident Family Medicine 08/03/20 08/04/22 Gas Fitter Apprentice Relationship Specialty Start Date End Date Matthew Vera MD [address] [place] [address] 88264 PCP - General Family Medicine 08/03/20 08/04/22 Dora Santacruz Rn, MD [address] [place] [address] PCP Resident Family Medicine 08/03/20 08/04/22 Gas Fitter Apprentice Relationship Specialty Start Date End Date Matthew Vera MD [address] [place] [address] 11334 PCP - General Family Medicine 08/03/20 08/04/22 Dora Santacruz Rn, MD [address] [place] [address] 17425 PCP Resident Family Medicine 08/03/20 08/04/22 Gas Fitter Apprentice Relationship Specialty Start Date End Date Karon Odonnell MD [address] [place] [address] [phone] PCP - General Family Medicine 08/05/22 Venancio Beckford MD [address] [place] [address] 36990 PCP Resident Family Medicine 08/05/22 Gas Fitter Apprentice Relationship Specialty Start Date End Date Karon Odonnell MD [address] [place] [address] 40721 PCP - General Family Medicine 08/05/22 Venancio Beckford MD [address] [place] [address] PCP Resident Family Medicine 08/05/22 Gas Fitter Apprentice Relationship Specialty Start Date End Date Karon Odonnell MD [address] [place] [address] PCP - General Family Medicine 08/05/22 Venancio Beckford MD [address] [place] [address] 71500 PCP Resident Family Medicine 08/05/22 Gas Fitter Apprentice Relationship Specialty Start Date End Date Karon Odonnell MD [address] [place] [address] 20980 PCP - General Family Medicine 08/05/22 Venancio Beckford MD [address] [place] [address] PCP Resident Family Medicine 08/05/22 Gas Fitter Apprentice Relationship Specialty Start Date End Date Karon Odonnell MD [address] [place] [address] 08466 PCP - General Family Medicine 08/05/22 Venancio Beckford MD [address] [place] [address] PCP Resident Family Medicine 08/05/22 Gas Fitter Apprentice Relationship Specialty Start Date End Date Karon Odonnell MD [address] [place] [address] PCP - General Family Medicine 08/05/22 Venancio Beckford MD [address] [place] [address] PCP Resident Family Medicine 08/05/22 Gas Fitter Apprentice Relationship Specialty Start Date End Date Karon Odonnell MD [address] [place] [address] PCP - General Family Medicine 08/05/22 Venancio Beckford MD [address] [place] [address] 58017 PCP Resident Family Medicine 08/05/22 Gas Fitter Apprentice Relationship Specialty Start Date End Date Karon Odonnell MD [address] [place] [address] 33798 PCP - General Family Medicine 08/05/22 Venancio Beckford MD [address] [place] [address] 81921 PCP Resident Family Medicine 08/05/22 Gas Fitter Apprentice Relationship Specialty Start Date End Date Generic Provider, [place] [address] PCP - General Transition Lead 12/24/23 Gas Fitter Apprentice Relationship Specialty Start Date End Date Karon Odonnell MD [address] [place] [address] 20376 PCP - General Family Medicine 08/05/22 Venancio Beckford MD [address] [place] [address] 78183 PCP Resident Family Medicine 08/05/22 Gas Fitter Apprentice Relationship Specialty Start Date End Date Karon Odonnell MD [address] [place], [place] [phone] PCP - General Family Medicine 08/05/22 Venancio Beckford MD [address] [place] [address] 94182 PCP Resident Family Medicine 08/05/22 Gas Fitter Apprentice Relationship Specialty Start Date End Date Karon Odonnell MD [address] [place] [address] 18540 PCP - General Family Medicine 08/05/22 Venancio Beckford MD [address] [place] [address] 07539 PCP Resident Family Medicine 08/05/22 Gas Fitter Apprentice Relationship Specialty Start Date End Date Karon Odonnell MD [address] [place] [address] 75867 PCP - General Family Medicine 08/05/22 Venancio Beckford MD [address] [place] [address] 79335 PCP Resident Family Medicine 08/05/22 Gas Fitter Apprentice Relationship Specialty Start Date End Date Karon Odonnell MD [address] [place] [address] 35639 PCP - General Family Medicine 08/05/22 Venancio Beckford MD [address] [place] [address] 74164 PCP Resident Family Medicine 08/05/22 Gas Fitter Apprentice Relationship Specialty Start Date End Date Karon Odonnell MD [address] [place] [address] 70291 PCP - General Family Medicine 08/05/22 Venancio Beckford MD [address] [place] [address] 92712 PCP Resident Family Medicine 08/05/22 Gas Fitter Apprentice Relationship Specialty Start Date End Date Karon Odonnell MD [address] [place] [address] 49550 PCP - General Family Medicine 08/05/22 Venancio Beckford MD [address] [place] [address] 02956 PCP Resident Family Medicine 08/05/22 Gas Fitter Apprentice Relationship Specialty Start Date End Date Karon Odonnell MD [address] [place] [address] 35801 PCP - General Family Medicine 08/05/22 Venancio Beckford MD [address] [place] [address] 35919 PCP Resident Family Medicine 08/05/22 Gas Fitter Apprentice Relationship Specialty Start Date End Date Karon Odonnell MD [address] [place] [address] 18347 PCP - General Family Medicine 08/05/22 Venancio Beckford MD [address] [place] [address] 10001 PCP Resident Family Medicine 08/05/22 Gas Fitter Apprentice Relationship Specialty Start Date End Date Karon Odonnell MD [address] [place] [address] 59070 PCP - General Family Medicine 08/05/22 Venancio Beckford MD [address] [place] [address] 18383 PCP Resident Family Medicine 08/05/22 Gas Fitter Apprentice Relationship Specialty Start Date End Date Karon Odonnell MD [address] [place] [address] 02235 PCP - General Family Medicine 08/05/22 Venancio Beckford MD [address] [place] [address] 62924 PCP Resident Family Medicine 08/05/22 Gas Fitter Apprentice Relationship Specialty Start Date End Date Karon Odonnell MD [address] [place] [address] 74980 PCP - General Family Medicine 08/05/22 Venancio Beckford MD [address] [place] [address] 05850 PCP Resident Family Medicine 08/05/22 Gas Fitter Apprentice Relationship Specialty Start Date End Date Karon Odonnell MD [address] [place] [address] 85584 PCP - General Family Medicine 08/05/22 Venancio Beckford MD [address] [place] [address] 66189 PCP Resident Family Medicine 08/05/22 Gas Fitter Apprentice Relationship Specialty Start Date End Date Karon Odonnell MD [address] [place] [address] 51270 PCP - General Family Medicine 08/05/22 Venancio Beckford MD [address] [place] [address] 74814 PCP Resident Family Medicine 08/05/22 Gas Fitter Apprentice Relationship Specialty Start Date End Date Karon Odonnell MD [address] [place] [address] 08587 PCP - General Family Medicine 08/05/22 Venancio Beckford MD [address] [place] [address] 79257 PCP Resident Family Medicine 08/05/22 Gas Fitter Apprentice Relationship Specialty Start Date End Date Karon Odonnell MD [address] [place] [address] 26912 PCP - General Family Medicine 08/05/22 Venancio Beckford MD [address] [place] [address] 94040 PCP Resident Family Medicine 08/05/22 Gas Fitter Apprentice Relationship Specialty Start Date End Date Karon Odonnell MD [address] [place] [address] 97304 PCP - General Family Medicine 08/05/22 Venancio Beckford MD [address] [place] [address] 29307 PCP Resident Family Medicine 08/05/22 Gas Fitter Apprentice Relationship Specialty Start Date End Date Karon Odonnell MD [address] [place] [address] PCP - General Family Medicine 08/05/22 Venancio Beckford MD [address] [place] [address] 28925 PCP Resident Family Medicine 08/05/22 Gas Fitter Apprentice Relationship Specialty Start Date End Date Karon Odonnell MD [address] [place] [address] 29244 PCP - General Family Medicine 08/05/22 Venancio Beckford MD [address] [place] [address] 76762 PCP Resident Family Medicine 08/05/22 Gas Fitter Apprentice Relationship Specialty Start Date End Date Karon Odonnell MD [address] [place] [address] 45810 PCP - General Family Medicine 08/05/22 Venancio Beckford MD [address] [place] [address] 37983 PCP Resident Family Medicine 08/05/22 Gas Fitter Apprentice Relationship Specialty Start Date End Date Karon Odonnell MD [address] [place] [address] 94654 PCP - General Family Medicine 08/05/22 Venancio Beckford MD [address] [place] [address] PCP Resident Family Medicine 08/05/22 Gas Fitter Apprentice Relationship Specialty Start Date End Date Karon Odonnell MD [address] [place] [address] PCP - General Family Medicine 08/05/22 Venancio Beckford MD [address] [place] [address] PCP Resident Family Medicine 08/05/22 Gas Fitter Apprentice Relationship Specialty Start Date End Date Kaorn Odonnell MD [address] [place] [address] PCP - General Family Medicine 08/05/22 Venancio Beckford MD [address] [place] [address] 51921 PCP Resident Family Medicine 08/05/22 Gas Fitter Apprentice Relationship Specialty Start Date End Date Karon Odonnell MD [address] [place] [address] PCP - General Family Medicine 08/05/22 Venancio Beckford MD [address] [place] [address] PCP Resident Family Medicine 08/05/22 Gas Fitter Apprentice Relationship Specialty Start Date End Date [place]aron [place] [id number] [place] [address] 34964 PCP - General Family Medicine 08/05/22 Venancio Beckford MD [address] [place] [address] 73991 PCP Resident Family Medicine 08/05/22 Gas Fitter Apprentice Relationship Specialty Start Date End Date Karon Odonnell MD [address] [place] [address] 69603 PCP - General Family Medicine 08/05/22 Venancio Beckford MD [address] [place] [address] 19286 PCP Resident Family Medicine 08/05/22 Team Status: Inactive Member Role Status Dates No Primary Care Physician Primary Care Provider Active Start: July 25, 2024 End: July 25, 2024 Dr. Jenise Nieves MD Attending Provider Active Start: July 25, 2024 End: July 25, 2024 Dr. Jenise Nieves MD Referring Provider Active Start: July 25, 2024 End: July 25, 2024 Team Status: Inactive Member Role Status Dates No Primary Care Physician Primary Care Provider Active Start: July 30, 2024 End: July 30, 2024 Dr. Jenise Nieves MD Attending Provider Active Start: July 30, 2024 End: July 30, 2024 Dr. Jenise Nieves MD Referring Provider Active Start: July 30, 2024 End: July 30, 2024 Goals (unrecognized section and content) Goals may be documented in a n alternate sectionGoals may be documented in an alternate sectionGoals may be documented in an alternate section FOR RECORDS PERTAINING TO PATIENTS WHO ARE OR HAVE BEEN ENROLLED IN A CHEMICAL DEPENDENCY/SUBSTANCEABUSE PROGRAM, SOME INFORMATION MAY BE OMITTED. This clinical summary was aggregated from multiple sources. Caution should be exercised in using it in the provision of clinical care. This summary normalizes information from multiple sources, and as a consequence, information in this document may materially change the coding, format and clinical context of patient data. In addition, data may be omitted in some cases. CLINICAL DECISIONS SHOULD BE BASED ON THE PRIMARY CLINICAL RECORDS. [facility] [employer] [facility]. provides no warranty or guarantee of the accuracy or completeness of information in this document.
--- OUTSIDE RECORDS SUMMARY | 2024-07-30 22:29 | XMS RPT_ITS | CCD ---
Author Organization [facility] CliniSyal Care Team Providers Care Silk Screen Printer Name Role Phone Maynor, Jenny Unavailable Unavailable [...] Matthew Vera MD Primary Care Provider [phone] Jose Haynes MD Primary Care Provider [phone] Cirilo Noble MDriel Unavailable [phone] Mauricio Aquino MD Unavailable Matthew Vera MD Primary Care Provider [phone] Mauricio Aquino MD Unavailable Matthew Vera MD Primary Care Provider [phone] Jose Haynes MD Primary Care Provider [phone] Aide ADAMS Judd Unavailable [phone] Karon Odonnell MD Primary Care Provider [phone] Venancio Beckford MD Unavailable [phone] Dora Santacruz MD (Rn) Unavailable Jody ADAMS, Matthew Raymond Primary Care Provider [phone] Venancio Beckford MD Unavailable Blas ADAMS, Karon Primary Care Provider [phone] Dora Santacruz MD (Rn) Unavailable Matthew Vera MD Primary Care Provider [phone] Generic Provider MD, No Assigned Pcp Primary [...] Unavailable Ezequiel ADAMS, Dr. Burden Attending Provider [phone] Ezequiel ADAMS, Dr. Burden Referring Provider [phone] ALFRED CHILDRESS Referring Unavailable RAINBOLT, KARON Primary [...] Unavailable RAINBOLT, KARON Primary Care Unavailable RAINBOLT, KAORN Primary Care Unavailable HAURY, ELKIN Referring Unavailable [...] Physician, No Primary Primary Care Unava ilable Jenise Nieves Attending Unavailable Jenise Nieves Referring Unavailable Wiswell, Susana Attending Unavailable Wiswell, Susana Referring Unavailable Care Physician, No Primary Primary Care Unava ilable Wiswell, Susana Admitting Unavailable Care Physician, No Primary Primary Care Kaz Torres Attending Unavailable Allergies Allergy Classification Reported Allergen(s) Allergy Type Date of Onset Reaction(s) Facility (1 source) SUMAtriptan; Translations: [Imitrex] Drug Allergy [facility] (1 source) No Known Allergies; Translations: [No Known Allergies] Propensity to adverse reactions (disorder) [facility] (1 source) Excedrin Migraine Geltab; Translations: [Excedrin Migraine Geltab] Propensity to adverse reactions (disorder) [facility] (20 sources) SUMAtriptan; Translations: [SUMATRIPTAN] Drug Allergy 1 Other: See Comments, Other [facility] (1 source) SUMAtriptan Drug Allergy 5 [facility] Repository Medications Current Medications Medication Drug Class(es) [...] on above: Take 1 capsule by mo [facility] once daily. methylPREDNISolone 4 mg oral tablet [...] on above: Take 1 capsule by mo [facility] once daily. phentermine hydrochloride 37.5 mg oral [...] of ; Translations: [24 weeks gestation of ([facility])] Onset: 05-21-2024 Episodic Residual codes; unclassified (1 [...] Cultureon 07-27-2024 URC Mixed Gram Positive Organisms Bradford Count 25,000-50,000 MIXC Mixed contaminants. Submit a new specimen if indicated. Normal [facility] Comment on above: Performed By: #### M 100.2200 #### [facility] [address] [place], [place], [address] AST(SGOT)Ordered By: Mona Nieves on 07-25-2024 AST [Catalytic activity/Vol] 14 U/L <32 [facility] Comment on above: Performed By: #### L 501.1105, L501.1400, L100.0500, L501.0900, L501.4405, L501.4100 #### [facility] [address] [place], [place], [address] Automated blood erythrocyte countOrdered By: Jenise Nieves on 07-25-2024 RBC (Bld) [#/Vol] 3.74 10*6/uL Low 4.2-5.4 [facility] Comment on above: Performed By: #### L 501.1105, L501.1400, L100.0500, L501.0900, L501.4405, L501.4100 #### [facility] [address] [place], [place], [address] Automated blood hematocrit ( percentage)Ordered By: Jenise Nieves on 07-25-2024 Hematocrit (Bld) [Volume fraction] 32.2 % Low 37-47 [facility] Comment on above: Performed By: #### L 501.1105, L501.1400, L100.0500, L501.0900, L501.4405, L501.4100 #### [facility] [address] [place], [place], [address] Bilirubin Test strip Ql (U)O rdered By: Jenise Nieves on 07-25-2024 Bilirubin Ql (U) Negative Negative [facility] CBC-Complete Blood Cnt No Di ffon 07-25-2024 RDW SD 42.3 fl Normal 35.1-43.9 [facility] Comment on above: Performed By: #### L 501.1105, L501.1400, L100.0500, L501.0900, L501.4405, L501.4100 #### [facility] [address] [place], [place], [address] Erythrocyte distribution wid th ratioOrdered By: Jenise Nieves on 07-25-2024 Erythrocyte distribution width (RBC) [Ratio] 13.6 % 11.6-14.6 [facility] Comment on above: Performed By: #### L 501.1105, L501.1400, L100.0500, L501.0900, L501.4405, L501.4100 #### [facility] [address] [place], [place], [address] Erythrocyte distribution wid th standard deviationOrdered By: Jenise Nieves on 07-25-2024 Erythrocyte distribution width (RBC) [Ratio] 42.3 fl 35.1-43.9 [facility] Glomerular filtration rate ( GFR) estimation/1.73 sq m using serum, plasma, or whole bOrdered By: Jenise Nieves on 07-25-2024 GFR/1.73 sq M.predicted among non-blacks MDRD (S/P/Bld) [Vol rate/Area] 111 mL/min/{1.73_m2} >60 [facility] Comment on above: mL/min/1.73m2 CKD-EP I Creatinine Equation (2020) Result Comment: mL/m in/1.73m2 CKD-EPI Creatinine Equation (2020) Performed By: #### L 501.1105, L501.1400, L100.0500, L501.0900, L501.4405, L501.4100 #### [facility] [address] [place], [place], [id number] Hemoglobin measurementOrdere d By: Jenise Nieves on 07-25-2024 Hemoglobin (Bld) [Mass/Vol] 10.7 g/dL Low 12.0-15.0 [facility] Comment on above: Performed By: #### L 501.1105, L501.1400, L100.0500, L501.0900, L501.4405, L501.4100 #### [facility] [address] [place], [place], [address] Ketones Test strip Ql (U)Ord ered By: Jenise Nieves on 07-25-2024 Ketones Ql (U) Negative Negative [facility] MCV (mean corpuscular volume ) determinationOrdered By: Jenise Nieves on 07-25-2024 MCV (RBC) [Entitic vol] 86.1 fL 81-99 [facility] Comment on above: Performed By: #### L 501.1105, L501.1400, L100.0500, L501.0900, L501.4405, L501.4100 #### [facility] [address] [place], [place], [address] Mean corpuscular hemoglobin (MCH) determinationOrdered By: Jenise Nieves on 07-25-2024 MCH (RBC) [Entitic mass] 28.6 pg 27.0-32.0 [facility] Comment on above: Performed By: #### L 501.1105, L501.1400, L100.0500, L501.0900, L501.4405, L501.4100 #### [facility] [address] [place], [place], [address] Mean corpuscular hemoglobin concentration (MCHC) determinationOrdered By: Jenise Nieves on 07-25-2024 MCHC (RBC) [Mass/Vol] 33.2 g/dL 32-36 [facility] Comment on above: Performed By: #### L 501.1105, L501.1400, L100.0500, L501.0900, L501.4405, L501.4100 #### [facility] [address] [place], [address] Mean platelet volume determi nationOrdered By: Jenise Nieves on 07-25-2024 Platelet mean volume (Bld) [Entitic vol] 12.3 fL High 6.2-12.0 [facility] Comment on above: Performed By: #### L 501.1105, L501.1400, L100.0500, L501.0900, L501.4405, L501.4100 #### [facility] [address] [place], [address] OB Triage Physician Noteon 0 07-25-2024 OB Triage Physician Note [facility] Medical Records Department [address] [place] [address] OB Triage Physician Note 07/25/24 1757 MR#: [id number] Acct: [id number] Name: RICHARD SMITH Rep #: [id number] : 1995 29 From: Jenise Nieves MD PCP: Care Physician,No Primary Status:DEP CLI Y Location: [facility] HPI - General General Date of Admission: [...] MD; No Primary Care Physician Signed Normal [facility] Platelet countOrdered By: Lucian Nieves on 07-25-2024 Platelets (Bld) [#/Vol] 139 10*3/uL Low 150-450 [facility] Comment on above: Performed By: #### L 501.1105, L501.1400, L100.0500, L501.0900, L501.4405, L501.4100 #### [facility] [address] [place], [place], [address] Protein Test strip Ql (U)Ord ered By: Jenise Nieves on 07-25-2024 Protein Ql (U) 15 mg/dl High Negative [facility] Protein+Creatinine Ratio,Uri neon 07-25-2024 PROT:CRE RATIO 179 mg/g CRE Normal 0-200 [facility] Comment on above: Performed By: #### L 501.1105, L501.1400, L100.0500, L501.0900, L501.4405, L501.4100 #### [facility] [address] [place], [address] UR CREAT 86.50 mg/dL Normal 28.00-217.00 [facility] Comment on above: Performed By: #### L 501.1105, L501.1400, L100.0500, L501.0900, L501.4405, L501.4100 #### [facility] [address] [place], [address] Random urine creatinine lashae urement (mass/volume)Ordered By: Jenise Nieves on 07-25-2024 Creatinine Unsp time (U) [Mass/Vol] 86.50 mg/dL 28.00-217.00 [facility] Serum Creatinine AND GFRon 0 07-25-2024 ECRCL 136.77 ml/min Normal 50-250 [facility] Comment on above: Performed By: #### L 501.1105, L501.1400, L100.0500, L501.0900, L501.4405, L501.4100 #### [facility] [address] [facility] [address] [place], [place], [address] Serum creatinine measurement (mass/volume)Ordered By: Jenise Nieves on 07-25-2024 Creatinine [Mass/Vol] 0.74 mg/dL 0.70-1.20 [facility] Comment on above: Performed By: #### L 501.1105, L501.1400, L100.0500, L501.0900, L501.4405, L501.4100 #### [facility] [address] [facility] [address] [place], [place], [address] Serum or plasma alanine balderas otransferase (ALT) measurementOrdered By: Jenise Nieves on 07-25-2024 ALT [Catalytic activity/Vol] 7 U/L <35 [facility] Comment on above: Performed By: #### L 501.1105, L501.1400, L100.0500, L501.0900, L501.4405, L501.4100 #### [facility] [address] [facility] [address] [place], [place], [address] Serum or plasma uric acid me asurement (mass/volume)Ordered By: Jenise Nieves on 07-25-2024 Urate [Mass/Vol] 4.8 mg/dL 2.6-6.0 [facility] Comment on above: The drugs N-Acetylcy steine and Metamizole may falsely depress this assay. Uric Acidon 07-25-2024 URIC 4.8 mg/dL Normal 2.6-6.0 [facility] Comment on above: Result Comment: The drugs N-Acetylcysteine and Metamizole may falsely depress this assay. Performed By: #### L 501.1105, L501.1400, L100.0500, L501.0900, L501.4405, L501.4100 #### [facility] [address] [place], [address] Urinalysis, Routine (Dipstic k)on 07-25-2024 BILIRUBIN URINE Negative Normal Negative [facility] Comment on above: Order Comment: CLEAN CATCH Performed By: #### L 400.2010 #### [facility] [address] [place], [address] GLUCOSE, UR Normal Normal Normal [facility] Comment on above: Order Comment: CLEAN CATCH Performed By: #### L 400.2010 #### [facility] [address] [place], [address] KETONE UR Negative Normal Negative [facility] Comment on above: Order Comment: CLEAN CATCH Performed By: #### L 400.2010 #### [facility] [address] [place], [address] LEUK ESTERASE Negative Normal Negative [facility] Comment on above: Order Comment: CLEAN CATCH Performed By: #### L 400.2010 #### [facility] [address] [place], [address] OCCULT BLOOD-UR 10 /ul Abnormal Negative [facility] Comment on above: Order Comment: CLEAN CATCH Performed By: #### L 400.2010 #### [facility] [address] [place], [address] pH UR 6.0 Normal 5.0 - 8.0 [facility] Comment on above: Order Comment: CLEAN CATCH Performed By: #### L 400.2010 #### [facility] [address] [place], [address] PROT DIPSTX 15 mg/dl Abnormal Negative [facility] Comment on above: Order Comment: CLEAN CATCH Performed By: #### L 400.2010 #### [facility] [address] [place], [address] SP.GR. DIPSTX 1.015 Normal 1.002-1.030 [facility] Comment on above: Order Comment: CLEAN CATCH Performed By: #### L 400.2010 #### [facility] [address] [place], [address] UROBILI Normal Normal Normal [facility] Comment on above: Order Comment: CLEAN CATCH Performed By: #### L 400.2010 #### [facility] [address] [place], [address] Urine clarityOrdered By: Mary Nieves on 07-25-2024 Clarity (U) Clear Clear [facility] Comment on above: Order Comment: CLEAN CATCH Performed By: #### L 400.2010 #### [facility] [address] [place], [address] Urine color determinationOrd ered By: Jenise Nieves on 07-25-2024 Color (U) Yellow Yellow [facility] Comment on above: Order Comment: CLEAN CATCH Performed By: #### L 400.2010 #### [facility] [address] [place], [address] Urine cultureOrdered By: Mary Nieves on 07-25-2024 Bacteria identified Cx Nom (U) Positive Abnormal [facility] Urine glucose detectionOrder ed By: Jenise Nieves on 07-25-2024 Glucose Ql (U) Normal mg/dl Normal [facility] Urine leukocyte esterase det ection by dipstickOrdered By: Jenise Nieves on 07-25-2024 Leukocyte esterase Test strip Ql (U) Negative Negative [facility] Urine nitrite test by dipsti ckOrdered By: Jenise Nieves on 07-25-2024 Nitrite Ql (U) Negative Negative [facility] Comment on above: Order Comment: CLEAN CATCH Performed By: #### L 400.2010 #### [facility] [address] [place], [place], [address] Urine pHOrdered By: Jenise Nieves on 07-25-2024 pH (U) 6.0 [pH] 5.0 - 8.0 [facility] Urine protein measurement (m ass/volume)Ordered By: Jenise Nieves on 07-25-2024 Protein (U) [Mass/Vol] 15.5 mg/dL High 0.0-12.0 [facility] Comment on above: Performed By: #### L 501.1105, L501.1400, L100.0500, L501.0900, L501.4405, L501.4100 #### [facility] [address] [place], [place], [address] Urine protein/creatinine mas s ratioOrdered By: Jenise Nieves on 07-25-2024 Protein/Creatinine (U) [Mass ratio] 179 mg/g CRE 0-200 [facility] Urine specific gravity measu rementOrdered By: Jenise Nieves on 07-25-2024 Specific gravity (U) [Rel density] 1.015 1.002-1.030 [facility] Urine urobilinogen measureme ntOrdered By: Jenise Nieves on 07-25-2024 Urobilinogen Ql (U) Normal mg/dl Normal [facility] White blood cell (WBC) count Ordered By: Jenise Nieves on 07-25-2024 WBC (Bld) [#/Vol] 8.5 10*3/uL 4.4-11.0 [facility] Comment on above: Performed By: #### L 501.1105, L501.1400, L100.0500, L501.0900, L501.4405, L501.4100 #### [facility] [address] [place], [address] Free T4 [Mass/Vol]on 025 Interpretation and review of laboratory results Abnormal [facility] No Panel Informationon 07-23 [facility] T4 FREE/FREE THYROXINEon 06- 18-2025 Free T4 [Mass/Vol] 0.5 ng/dL Low 0.9 - 1.7 ng/dL [facility] T4 Free SerPl-mCncon 025 Free T4 [Mass/Vol] 0.5 ng/dL Low 0.9-1.7 [facility] Comment on above: Order Comment: Teodora sanderson Type: BLOOD SPECIMENOrdering Facility: [facility] Address: [address] [place] [address] Performed By: #### 3 016-3, 3024-7 ####[facility] LABCLIA [id number] [place] [address] [place] THYROID STIMULATING HORMONEo n 07-23-2024 TSH Qn 4.01 m[IU]/L [facility] Comment on above: If the [...] Lock, et al. 2017 Guidelines of the [place] [employer] for the Diagnosis and Management of Thyroid Disease during and the . Thyroid, 2017:27:3:315-389. TSH Qnon 07-23-2024 Interpretation and review of laboratory results Normal [facility] TSH SerPl-aCncon 07-23-2024 TSH Qn 4.010 m[IU]/L Normal 0.270-4.200 [facility] Comment on above: Order Comment: Teodora sanderson Type: BLOOD SPECIMENOrdering Facility: [facility] Address: [address] [place] [address] Result Comment: If t he patient is , TSH reference range varies by gestational period: First Trimester (weeks 9-12): 0.180-2.990 mIU/L Second Trimester: 0.110-3.980 mIU/L Third Trimester: 0.480-4.710 mIU/L Loki Montero et al. A Practical Approach for the Verifications and Determination of Site- and Trimester-Specific Reference Intervals for Thyroid Function tests in . Thyroid, 2019:29:3:412-420. Clifford Lock, et al. 2017 Guidelines of the [place] Thy[employer] for the Diagnosis and Management of Thyroid Disease during and the . Thyroid, 2017:27:3:315-389. Performed By: #### 3 016-3, 3024-7 ####[facility] LABCLIA [id number] [address] URINE OB DIP B/Oon 5 Glucose Ql (U) Negative Neg mg/dL [facility] Interpretation and review of laboratory results Normal [facility] Protein.monoclonal (U) [Mass/Vol] trace Neg mg/dL [facility] Examination level ultrasound on 07-16-2024 [facility] Radiology Study observation (narrative) [facility] ROUTINE, GROUP B ST REPTOCOCCUS BY PCRon 07-16-2024 ROUTINE, GROUP B STREPTOCOCCUS BY PCR Not detected Normal [facility] Comment on above: Performed By: #### G BPCR ####[facility] LABCLIA [id number] [address] URINE OB DIP B/Oon 5 Glucose Ql (U) Negative Neg mg/dL [facility] Interpretation and review of laboratory results Normal [facility] Protein.monoclonal (U) [Mass/Vol] Negative Neg mg/dL [facility] CNPNon 07-09-2024 CNPN Telephone (OBGYWM) RICHARD SMITH ([id number]) 1995 F Date Time Provider Department 07/09/24 [...] to employer as requested. Patient notified via [employer]. Alan Haynes MA Allergies As of Date: [...] Status:Closed by ELSA CHAUDHARY on 07/09/24 Normal [facility] URINE OB DIP B/Oon Glucose Ql (U) Negative Neg mg/dL [facility] Interpretation and review of laboratory results Normal [facility] Protein.monoclonal (U) [Mass/Vol] Negative Neg mg/dL [facility] CNPNon 07-01-2024 CNPN Telephone (OBGYWM) RICHARD SMITH ([id number]) 1995 F Date Time Provider Department 07/01/24 [...] SHANE. 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 - Other [3602] Cmt: PRACaitlin Prescriptions as [...] Encounter Status:Closed by JENISE CAZARES on 06/05/24 [facility] CNOVon 05-26-2024 CNOV Office Visit (UCWSTR ) RICHARD SMITH ([id number]) 1995 F Date Time Provider Department 05/26/24 12:15 PM ERIC GASPAR [facility] During your visit today, we recorded the following information about you: Temperature Pulse Respiration Blood pressure 98.5 degrees 96/minute 16/minute 122/72 Weight 104.6 kg Eric Gaspar, ZANE.DESTATICIZER FEEDER 05/26/2024 1:11 PM Signed [facility] [...] Pupils: Pupils (more content not included)... Normal [facility] CBC W Auto Differential pane l (Bld)on 05-21-2024 Basophils (Bld) [#/Vol] 10*3/uL Normal <0.11 [facility] Comment on above: Order Comment: Speci men Type: BLOOD SPECIMENOrdering Facility: [facility] Address: [address] [place] [address] Performed By: #### 5 7021-8 ####[facility] [id number] [place] [address] [place] Basophils/100 WBC (Bld) 0.2 % Normal [facility] Comment on above: Order Comment: Speci men Type: BLOOD SPECIMENOrdering Facility: [facility] Address: [address] [place] [address] Performed By: #### 5 7021-8 ####[facility] [id number] [place] [address] [place] Differential cell count method Nom (Bld) Auto Normal [facility] Comment on above: Order Comment: Speci men Type: BLOOD SPECIMENOrdering Facility: [facility] Address: [address] [place] [address] Performed By: #### 5 7021-8 ####[facility] [id number] [place] [address] [place] Eosinophils (Bld) [#/Vol] 0.19 10*3/uL Normal <0.46 [facility] Comment on above: Order Comment: Speci men Type: BLOOD SPECIMENOrdering Facility: [facility] Address: [address] [place] [address] Performed By: #### 5 7021-8 ####[facility] [id number] [place] [address] [place] Eosinophils/100 WBC (Bld) 1.7 % Normal [facility] Comment on above: Order Comment: Speci men Type: BLOOD SPECIMENOrdering Facility: [facility] Address: [address] [place] [address] Performed By: #### 5 7021-8 ####[facility] [id number] [place] [address] [place] Erythrocyte distribution width (RBC) [Ratio] 13.5 % Normal 11.5-15.0 [facility] Comment on above: Order Comment: Speci men Type: BLOOD SPECIMENOrdering Facility: [facility] Address: [address] [place] [address] Performed By: #### 5 7021-8 ####[facility] [id number] [place] [address] [place] Hematocrit (Bld) [Volume fraction] 36.1 % Normal 36.0-46.0 [facility] Comment on above: Order Comment: Speci men Type: BLOOD SPECIMENOrdering Facility: [facility] Address: [address] [place] [address] Performed By: #### 5 7021-8 ####[facility] MILLTOWNCLIA [id number] [place] [id number] [place] Hemoglobin (Bld) [Mass/Vol] 12.3 g/dL Normal 11.5-15.5 [facility] Comment on above: Order Comment: Speci men Type: BLOOD SPECIMENOrdering Facility: [facility] Address: [address] [place] [address] Performed By: #### 5 7021-8 ####[facility] [id number] [place] [address] [place] Immature granulocytes (Bld) [#/Vol] 0.13 10*3/uL High <0.10 [facility] Comment on above: Order Comment: Speci men Type: BLOOD SPECIMENOrdering Facility: [facility] Address: [address] [place] [address] Performed By: #### 5 7021-8 ####[facility]ENTER[facility]IA [id number] [place] [address] [place] Immature granulocytes/100 WBC (Bld) 1.2 % Normal [facility] Comment on above: Order Comment: Speci men Type: BLOOD SPECIMENOrdering Facility: [facility] Address: [address] [place] [address] Performed By: #### 5 7021-8 ####[facility]CL[facility] [id number] [place] [address] [place] Lymphocytes (Bld) [#/Vol] 1.66 10*3/uL Normal 1.00-4.00 [facility] Comment on above: Order Comment: Speci men Type: BLOOD SPECIMENOrdering Facility: [facility] Address: [address] [place] [address] Performed By: #### 5 7021-8 ####[facility] PETERSBURGNCLIA [id number] [place] [address] [place] Lymphocytes/100 WBC (Bld) 14.9 % Normal [facility] Comment on above: Order Comment: Speci men Type: BLOOD SPECIMENOrdering Facility: [facility] Address: [address] [place] [address] Performed By: #### 5 7021-8 ####[facility] LUIS FERNANDOMCGREGOREMILIE [id number] [place] [address] [place] MCH (RBC) [Entitic mass] 30.2 pg Normal 26.0-34.0 [facility] Comment on above: Order Comment: Speci men Type: BLOOD SPECIMENOrdering Facility: [facility] Address: [address] [place] [address] Performed By: #### 5 7021-8 ####[facility] [id number] [place] [address] [place] MCHC (RBC) [Mass/Vol] 34.1 g/dL Normal 30.5-36.[address] [facility] Comment on above: Order Comment: Speci men Type: BLOOD SPECIMENOrdering Facility: [facility] Address: [address] [place] [address] Performed By: #### 5 7021-8 ####[facility] [id number] [place] [address] [place] MCV (RBC) [Entitic vol] 88.7 fL Normal 80.0-100.0 [facility] Comment on above: Order Comment: Speci men Type: BLOOD SPECIMENOrdering Facility: [facility] Address: [address] [place] [address] Performed By: #### 5 7021-8 ####[facility] PETERS[place]GNCLI [id number] [place] [address] [place] Monocytes (Bld) [#/Vol] 0.57 10*3/uL Normal <0.87 [facility] Comment on above: Order Comment: Speci men Type: BLOOD SPECIMENOrdering Facility: [facility] Address: [address] [place] [address] Performed By: #### 5 7021-8 ####[facility] [id number] [place] [address] [place] Monocytes/100 WBC (Bld) 5.1 % Normal [facility] Comment on above: Order Comment: Speci men Type: BLOOD SPECIMENOrdering Facility: [facility] Address: [address] [place] [address] Performed By: #### 5 7021-8 ####[facility] [id number] [place] [address] [place] Neutrophils (Bld) [#/Vol] 8.58 10*3/uL High 1.45-7.50 [facility] Comment on above: Order Comment: Speci men Type: BLOOD SPECIMENOrdering Facility: [facility] Address: [address] [place] [address] Performed By: #### 5 7021-8 ####[facility] [id number] [place] [address] [place] Neutrophils/100 WBC (Bld) 76.9 % Normal [facility] Comment on above: Order Comment: Speci men Type: BLOOD SPECIMENOrdering Facility: [facility] Address: [address] [place] [address] Performed By: #### 5 7021-8 ####[facility] [id number] [place] [address] [place] Nucleated RBC (Bld) [#/Vol] 10*3/uL Normal <0.01 [facility] Comment on above: Order Comment: Speci men Type: BLOOD SPECIMENOrdering Facility: [facility] Address: [address] [place] [address] Performed By: #### 5 7021-8 ####[facility] LUIS FERNANDOWNCLIA [id number] [place] [address] [place] Nucleated RBC/100 WBC (Bld) [Ratio] 0.0 /100 WBC Normal [facility] Comment on above: Order Comment: Speci men Type: BLOOD SPECIMENOrdering Facility: [facility] Address: [address] [place] [address] Performed By: #### 5 7021-8 ####[facility] PETERSBURGNCLIA [id number] [place] [address] [place] Platelet mean volume (Bld) [Entitic vol] 11.5 fL Normal 9.0-12.7 [facility] Comment on above: Order Comment: Speci men Type: BLOOD SPECIMENOrdering Facility: [facility] Address: [address] [place] [address] Performed By: #### 5 7021-8 ####[facility] PETERSBURGNCLIA [id number] [place] [address] [place] Platelets (Bld) [#/Vol] 173 10*3/uL Normal 150-400 [facility] Comment on above: Order Comment: Speci men Type: BLOOD SPECIMENOrdering Facility: [facility] Address: [address] [place] [address] Performed By: #### 5 7021-8 ####[facility] PETERSBURGNCLIA [id number] [place] [address] [place] RBC (Bld) [#/Vol] 4.07 10*6/uL Normal 3.90-5.20 [facility] Comment on above: Order Comment: Speci men Type: BLOOD SPECIMENOrdering Facility: [facility] Address: [address] [place] [address] Performed By: #### 5 7021-8 ####[facility] PETERSBURGNCLIA [id number] [place] [address] [place] WBC (Bld) [#/Vol] 11.15 10*3/uL High 3.70-11.00 [facility] Comment on above: Order Comment: Teodora sanderson Type: BLOOD SPECIMENOrdering Facility: [facility] Address: [address] [place] [address] Performed By: #### 5 7021-8 ####[facility] [id number] [place] [address] [place] Examination level ultrasound on 05-21-2024 [facility] Radiology Study observation (narrative) [facility] GESTATIONAL GLUCOSE SCREEN, 1-HOUR, 50 GRAM, NON-FASTINGon 05-21-2024 Glucose [Mass/Vol] 131 mg/dL Normal 74-134 [facility] Comment on above: Order Comment: Teodora sanderson Type: BLOOD SPECIMENOrdering Facility: [facility] Address: [address] [place] [address] Result Comment: [facility] [place] [facility] [employer] of Obstetricians and Gynecologists (Shaye/Lisandro) guidelines state a gestational diabetes mellitus positive screen is made, in women not previously diagnosed with overt diabetes, when the 1 hr plasma glucose level is equal to or above 140 mg/dL. The [facility] Night Supervisor and [facility] recommends a 135 mg/dL cutoff. Performed By: #### G LTGST ####[facility] [id number] [place] [address] [place] Prot/Creat Uron 05-21-2024 Protein/Creatinine (U) [Mass ratio] 0.14 mg/mg Normal <0.15 [facility] Comment on above: Order Comment: Teodora sanderson Type: URINE SPECIMEN [facility] Address: [address] [place] [address] Result Comment: Adul t Proteinuria Categories: <0.15 mg/mg is considered normal to mildly increased 0.15 - 0.50 mg/mg is considered moderately increased >0.50 mg/mg is considered severely increased KDIGO. (2013). KDIGO 2012 Clinical Practice Guideline for the Evaluation and Management of Chronic Kidney Disease. Official Journal of the International Society of Nephrology, 3(1), 1-150. Performed By: #### 2 890-2 #### [facility] CLIA [id number] [address] [place] [address] [place] Protein/Creatinine (U) [Mass ratio]on 05-21-2024 Creatinine (U) [Mass/Vol] 149.6 mg/dL Normal 20.0-300.0 [facility] Comment on above: Order Comment: Speci men Type: URINE SPECIMEN [facility] Address: [address] [place] [address] Performed By: #### 2 890-2 #### [facility] CLIA [id number] [address] [place] [address] [place] Protein (U) [Mass/Vol] 21 mg/dL High 0-20 [facility] Comment on above: Order Comment: Speci men Type: URINE SPECIMEN [facility] Address: [address] [place] [address] Performed By: #### 2 890-2 #### [facility] CLIA [id number] [address] [place] [address] [place] Reagin and Treponema pallidu m IgG and IgM [Interp]on 05-21-2024 T. pallidum IgG+IgM IA Ql (S) Non-Reactive Normal Nonreactive [facility] Comment on above: Order Comment: Speci men Type: URINE SPECIMEN [facility] Address: [address] [place] [address] Performed By: #### 2 890-2 #### [facility] CLIA [id number] [address] [place] [address] [place] Reagin+T pallidum IgG+IgM Se rPl-Impon 05-21-2024 Reagin and Treponema pallidum IgG and IgM [Interp] Cannot exclude recent Treponemal infection if specimen collected within 7-10 days after appearance of suspect lesions or 2-3 weeks after an exposure. Clinical correlation is required. Normal [facility] Comment on above: Order Comment: Speci men Type: URINE SPECIMEN [facility] Address: [address] [place] [address] Performed By: #### 2 890-2 #### [facility] CLIA [id number] [address] [place] [address] [place] T4 Free SerPl-mCncon 025 Free T4 [Mass/Vol] 0.6 ng/dL Low 0.9-1.7 [facility] Comment on above: Order Comment: Speci men Type: BLOOD SPECIMENOrdering Facility: [facility] Address: [address] [place] [address] Performed By: #### 3 016-3, 3024-7 ####[facility] [id number] [place] [address] [place] TSH SerPl-aCncon 05-21-2024 TSH Qn 2.310 m[IU]/L Normal 0.270-4.200 [facility] Comment on above: Order Comment: Speci men Type: BLOOD SPECIMENOrdering Facility: [facility] Address: [address] [place] [address] Result Comment: If t he patient is , TSH reference range varies by gestational period: First Trimester (weeks 9-12): 0.180-2.990 mIU/L Second Trimester: 0.110-3.980 mIU/L Third Trimester: 0.480-4.710 mIU/L Loki Montero et al. A Practical Approach for the Verifications and Determination of Site- and Trimester-Specific Reference Intervals for Thyroid Function tests in . Thyroid, 2019:29:3:412-420. Clifford Lock et al. 2017 Guidelines of the [place] Thyroid [employer] for the Diagnosis and Management of Thyroid Disease during and the . Thyroid, 2017:27:3:315-389. Performed By: #### 3 016-3, 3024-7 ####[facility] [id number] [place] [address] [place] BACTERIAL VAGINOSIS NAATon 0 05-18-2024 Lactobacillus crispatus+gasseri+mary senii + Gardnerella vaginalis + Atopobium vaginae rRNA MARK ANTHONY+probe Ql (Vag fld) Not detected Normal Not detected [facility] Comment on above: Order Comment: Speci men Type: SWAB [facility] Address: [address] [place] [address] Performed By: #### Niyah VAMP, 82738-8 #### [facility] CLIA [id number] [address] [place] [address] [place] Bacteria Ur Culton Bacteria identified Cx Nom (U) ORGANISM ID: 1 10,000 -<50,000 CFU/ml Normal urogenital osvaldo Normal [facility] Comment on above: Performed By: #### 6 30-4 #### [facility] CLIA [id number] [address] [place] [address] [place] C. trachomatis+N. gonorrhoea e DNA MARK ANTHONY+probe Ql (Unsp spec)on 05-18-2024 C. trachomatis rRNA MARK ANTHONY+probe Ql (Unsp spec) Not detected Normal Not detected [facility] Comment on above: Order Comment: Speci men Type: SWAB [facility] Address: [address] [place] [address] Performed By: #### B VAMP, 50619-8 #### [facility] CLIA [id number] [address] [place] [address] [place] N. gonorrhoeae rRNA MARK ANTHONY+probe Ql (Unsp spec) Not detected Normal Not detected [facility] Comment on above: Order Comment: Speci men Type: SWAB [facility] Address: [address] [place] [address] Performed By: #### B VAMP, 80640-2 #### [facility] CLIA [id number] [address] [place] [address] [place] DARYA/TRICHOMONAS NAATon 0 05-18-2024 C. glabrata RNA MARK ANTHONY+probe Ql (Vag fld) Not detected Normal Not detected [facility] Comment on above: Order Comment: Speci men Type: SWAB [facility] Address: [address] [place] [address] Performed By: #### C VTV #### [facility] CLIA [id number] [address] [place] [address] [place] Darya sp DNA MARK ANTHONY+probe Ql (Vag fld) Not detected Normal Not detected [facility] Comment on above: Order Comment: Speci men Type: SWAB [facility] Address: [address] [place] [address] Result Comment: The Darya species group target includes C. albicans, C. tropicalis, C. parapsilosis, and C. dubliniensis. Performed By: #### C VTV #### [facility] CLIA [id number] [address] [place] [address] [place] T. vaginalis DNA MARK ANTHONY+probe Ql (Unsp spec) Not detected Normal Not detected [facility] Comment on above: Order Comment: Speci men Type: SWAB [facility] Address: [address] [place] [address] Performed By: #### C VTV #### [facility] CLIA [id number] [address] [place] [address] [place] CBC W Auto Differential pane l (Bld)on 05-18-2024 Basophils (Bld) [#/Vol] 0.03 10*3/uL Normal <0.11 [facility] Comment on above: Order Comment: Speci men Type: BLOOD SPECIMEN [facility] Address: [address] [place] [address] Performed By: #### 5 7021-8 #### [facility] CLIA [id number] [address] [place] Basophils/100 WBC (Bld) 0.4 % Normal [facility] Comment on above: Order Comment: Speci men Type: BLOOD SPECIMEN [facility] Address: [address] [place] [address] Performed By: #### 5 7021-8 #### [facility] CLIA [id number] [address] [place] Differential cell count method Nom (Bld) Auto Normal [facility] Comment on above: Order Comment: Speci men Type: BLOOD SPECIMEN [facility] Address: [address] [place] [address] Performed By: #### 5 7021-8 #### [facility] CLIA [id number] [address] [place] Eosinophils (Bld) [#/Vol] 0.15 10*3/uL Normal <0.46 [facility] Comment on above: Order Comment: Speci men Type: BLOOD SPECIMEN [facility] Address: [address] [place] [address] Performed By: #### 5 7021-8 #### [facility] CLIA [id number] [address] Eosinophils/100 WBC (Bld) 1.8 % Normal [facility] Comment on above: Order Comment: Speci men Type: BLOOD SPECIMEN [facility] Address: [address] [place] [address] Performed By: #### 5 7021-8 #### [facility] CLIA [id number] [address] [place] Erythrocyte distribution width (RBC) [Ratio] 13.4 % Normal 11.5-15.0 [facility] Comment on above: Order Comment: Speci men Type: BLOOD SPECIMEN [facility] Address: [address] [place] [address] Performed By: #### 5 7021-8 #### [facility] CLIA [id number] [address] [place] [address] [place] Hematocrit (Bld) [Volume fraction] 32.3 % Low 36.0-46.0 [facility] Comment on above: Order Comment: Speci men Type: BLOOD SPECIMEN [facility] Address: [address] [place] [address] Performed By: #### 5 7021-8 #### [facility] CLIA [id number] [address] [place] [address] [place] Hemoglobin (Bld) [Mass/Vol] 11.1 g/dL Low 11.5-15.5 [facility] Comment on above: Order Comment: Speci men Type: BLOOD SPECIMEN [facility] Address: [address] [place] [address] Performed By: #### 5 7021-8 #### [facility] CLIA [id number] [address] [place] [address] [place] Immature granulocytes (Bld) [#/Vol] 0.08 10*3/uL Normal <0.10 [facility] Comment on above: Order Comment: Speci men Type: BLOOD SPECIMEN [facility] Address: [address] [place] [address] Performed By: #### 5 7021-8 #### [facility] CLIA [id number] [address] [place] [address] [place] Immature granulocytes/100 WBC (Bld) 0.9 % Normal [facility] Comment on above: Order Comment: Speci men Type: BLOOD SPECIMEN [facility] Address: [address] [place] [address] Performed By: #### 5 7021-8 #### [facility] CLIA [id number] [address] [place] [address] [place] Lymphocytes (Bld) [#/Vol] 1.52 10*3/uL Normal 1.00-4.00 [facility] Comment on above: Order Comment: Speci men Type: BLOOD SPECIMEN [facility] Address: [address] [place] [address] Performed By: #### 5 7021-8 #### [facility] CLIA [id number] [address] [place] [address] [place] Lymphocytes/100 WBC (Bld) 18.0 % Normal [facility] Comment on above: Order Comment: Speci men Type: BLOOD SPECIMEN [facility] Address: [address] [place] [address] Performed By: #### 5 7021-8 #### [facility] CLIA [id number] [address] MCH (RBC) [Entitic mass] 30.7 pg Normal 26.0-34.0 [facility] Comment on above: Order Comment: Speci men Type: BLOOD SPECIMEN [facility] Address: [address] [place] [address] Performed By: #### 5 7021-8 #### [facility] CLIA [id number] [address] MCHC (RBC) [Mass/Vol] 34.4 g/dL Normal 30.5-36.0 [facility] Comment on above: Order Comment: Speci men Type: BLOOD SPECIMEN [facility] Address: [address] [place] [address] Performed By: #### 5 7021-8 #### [facility] CLIA [id number] [address] MCV (RBC) [Entitic vol] 89.2 fL Normal 80.0-100.0 [facility] Comment on above: Order Comment: Speci men Type: BLOOD SPECIMEN [facility] Address: [address] [place] [address] Performed By: #### 5 7021-8 #### [facility] CLIA [id number] [address] Monocytes (Bld) [#/Vol] 0.51 10*3/uL Normal <0.87 [facility] Comment on above: Order Comment: Speci men Type: BLOOD SPECIMEN [facility] Address: [address] [place] [address] Performed By: #### 5 7021-8 #### [facility] CLIA [id number] [address] Monocytes/100 WBC (Bld) 6.0 % Normal [facility] Comment on above: Order Comment: Speci men Type: BLOOD SPECIMEN [facility] Address: [facility] [place] [address] Performed By: #### 5 7021-8 #### [facility] CLIA [id number] [address] [place] [address] [place] Neutrophils (Bld) [#/Vol] 6.15 10*3/uL Normal 1.45-7.50 [facility] Comment on above: Order Comment: Speci men Type: BLOOD SPECIMEN [facility] Address: [address] [place] [address] Performed By: #### 5 7021-8 #### [facility] CLIA [id number] [address] Neutrophils/100 WBC (Bld) 72.9 % Normal [facility] Comment on above: Order Comment: Speci men Type: BLOOD SPECIMEN [facility] Address: [address] [place] [address] Performed By: #### 5 7021-8 #### [facility] CLIA [id number] [address] [place] [address] [facility] [place] Nucleated RBC (Bld) [#/Vol] 10*3/uL Normal <0.01 [facility] Comment on above: Order Comment: Speci men Type: BLOOD SPECIMEN [facility]: [facility] Address: [address] [place] [address] Performed By: #### 5 7021-8 #### [facility] CLIA [id number] [address] [place] [address] [facility] [place] Nucleated RBC/100 WBC (Bld) [Ratio] 0.0 /100 WBC Normal [facility] Comment on above: Order Comment: Speci men Type: BLOOD SPECIMEN [facility]: [facility] Address: [address] [place] [address] Performed By: #### 5 7021-8 #### [facility] CLIA [id number] [address] [place] [address] [place] Platelet mean volume (Bld) [Entitic vol] 11.5 fL Normal 9.0-12.7 [facility] Comment on above: Order Comment: Speci men Type: BLOOD SPECIMEN [facility] Address: [facility] [place] [address] Performed By: #### 5 7021-8 #### [facility] CLIA [id number] [address] [place] [address] [place] Platelets (Bld) [#/Vol] 171 10*3/uL Normal 150-400 [facility] Comment on above: Order Comment: Speci men Type: BLOOD SPECIMEN [facility]: [facility] Address: [address] [place] [address] Performed By: #### 5 7021-8 #### [facility] CLIA [id number] [address] [place] [address] [place] RBC (Bld) [#/Vol] 3.62 10*6/uL Low 3.90-5.20 [facility] Comment on above: Order Comment: Speci men Type: BLOOD SPECIMEN [facility]: [facility] Address: [address] [place] [address] Performed By: #### 5 7021-8 #### [facility] CLIA [id number] [address] [place] [address] [place] WBC (Bld) [#/Vol] 8.44 10*3/uL Normal 3.70-11.00 [facility] Comment on above: Order Comment: Speci men Type: BLOOD SPECIMEN [facility] Facility: [facility] Address: [address] [place] [address] Performed By: #### 5 7021-8 #### [facility] CLIA [id number] [address] [place] [address] [place] CNCOon 05-18-2024 CNCO Letter Text Normal [facility] Comprehensive metabolic 2000 panelon 05-18-2024 Albumin [Mass/Vol] 3.4 g/dL Low 3.9-4.9 [facility] Comment on above: Order Comment: Speci men Type: BLOOD SPECIMEN [facility] Facility: [facility] Address: [address] [place] [address] Performed By: #### 2 4323-8, 41869-1, 0-3 #### [facility] CLIA [id number] [address] [place] [address] [place] ALP [Catalytic activity/Vol] 101 U/L Normal 34-123 [facility] Comment on above: Order Comment: Speci men Type: BLOOD SPECIMEN [facility] Facility: [facility] Address: [address] [place] [address] Performed By: #### 2 4323-8, 17246-2, 0-3 #### [facility] CLIA [id number] [address] [place] [address] [place] ALT [Catalytic activity/Vol] 5 U/L Low 7-38 [facility] Comment on above: Order Comment: Speci men Type: BLOOD SPECIMEN [facility] Facility: [facility] Address: [address] [place] [address] Performed By: #### 2 4323-8, , 0-3 #### [facility] CLIA [id number] [address] [place] [address] [place] Anion gap [Moles/Vol] 12 mmol/L Normal 8-15 [facility] Comment on above: Order Comment: Speci men Type: BLOOD SPECIMEN [facility] Facility: [facility] Address: [address] [place] [address] Performed By: #### 2 4323-8, 71736-9, 0-3 #### [facility] CLIA [id number] [address] [place] AST [Catalytic activity/Vol] 15 U/L Normal 13-35 [facility] Comment on above: Order Comment: Speci men Type: BLOOD SPECIMEN [facility] Facility: [facility] Address: [address] [place] [address] Performed By: #### 2 4323-8, 85759-1, 0-3 #### [facility] CLIA [id number] [address] [place] [address] [place] Bilirubin [Mass/Vol] 0.2 mg/dL Normal 0.2-1.3 [facility] Comment on above: Order Comment: Speci men Type: BLOOD SPECIMEN [facility] [facility] Address: [address] [id number] Performed By: #### 2 4323-8, 23440-6, 3039-3 #### [facility] CLIA [id number] [address] [place] [address] [place] Calcium [Mass/Vol] 8.6 mg/dL Normal 8.5-10.2 [facility] Comment on above: Order Comment: Speci men Type: BLOOD SPECIMEN Ordering Facility: [facility] Address: [address] [place] [address] Performed By: #### 2 4323-8, , 3039-3 #### [facility] CLIA [id number] [address] [place] [address] [place] Chloride [Moles/Vol] 107 mmol/L Normal 98-107 [facility] Comment on above: Order Comment: Speci men Type: BLOOD SPECIMEN Ordering Facility: [facility] Address: [address] [place] [address] Performed By: #### 2 4323-8, , 3 #### [facility] CLIA [id number] [address] [place] [address] [place] CO2 [Moles/Vol] 19 mmol/L Low 22-30 [facility] Comment on above: Order Comment: Speci men Type: BLOOD SPECIMEN Ordering Facility: [facility] Address: [address] [id number] Performed By: #### 2 4323-8, , 3039-3 #### [facility] CLIA [id number] [address] [place] [address] [place] Creatinine [Mass/Vol] 0.59 mg/dL Normal 0.58-0.96 [facility] Comment on above: Order Comment: Speci men Type: BLOOD SPECIMEN Ordering Facility: [facility] Address: [address] [place] [address] Performed By: #### 2 4323-8, , 3039-3 #### [facility] CLIA [id number] [address] [place] [address] [place] Creatinine and Glomerular filtration rate.predicted panel (S/P/Bld) 124 mL/min/1.73m??? Normal >=60 [facility] Comment on above: Order Comment: Teodora sanderson Type: BLOOD SPECIMEN Ordering Facility: [facility] Address: [address] [place] [address] Result Comment: Tanya mated Glomerular Filtration Rate [...] actual GFR. Performed By: #### 2 4323-8, 32472-9, 0-3 #### [facility] CLIA [id number] [address] [place] [address] [place] Glucose [Mass/Vol] 108 mg/dL High 74-99 [facility] Comment on above: Order Comment: Teodora sanderson Type: BLOOD SPECIMEN [facility]ing Facility: [facility] Address: [address] [place] [address] Result Comment: The [place] Diabetes Association (ADA) provides guidance for cutoff [...] Standards of Medical Care in Diabetes 2016, [place] Diabetes Association. Diabetes Care. 2016.39(Suppl 1). Performed By: #### 2 4323-8, 69447-2, 0-3 #### [facility] CLIA [id number] [address] [id number] [place] Potassium [Moles/Vol] 3.9 mmol/L Normal 3.7-5.1 [facility] Comment on above: Order Comment: Speci men Type: BLOOD SPECIMEN [facility]ing Facility: [facility] Address: [address] [place] [address] Performed By: #### 2 4323-8, 38490-3, 0-3 #### [facility] CLIA [id number] [address] [place] [address] [place] Protein [Mass/Vol] 6.1 g/dL Low 6.3-8.0 [facility] Comment on above: Order Comment: Speci men Type: BLOOD SPECIMEN Ordering Facility: [facility] Address: [address] [place] [address] Performed By: #### 2 4323-8, 60220-4, 0-3 #### [facility] CLIA [id number] [address] [place] Sodium [Moles/Vol] 138 mmol/L Normal 136-144 [facility] Comment on above: Order Comment: Speci men Type: BLOOD SPECIMEN Ordering Facility: [facility] Address: [address] [place] [address] Performed By: #### 2 4323-8, 16099-3, 0-3 #### [facility] CLIA [id number] [address] [place] Urea nitrogen [Mass/Vol] 5 mg/dL Low 7-21 [facility] Comment on above: Order Comment: Speci men Type: BLOOD SPECIMEN Ordering Facility: [facility] Address: [address] [place] [address] Performed By: #### 2 4323-8, 64796-5, 0-3 #### [facility] CLIA [id number] [address] [place] [address] [place] ED NOTEon 05-18-2024 ED NOTE HNO ID: [id number] Author: JULEE PALM APRN.LEMON GROWER Service: ? Author Type: Clinical Nurse Specialist Type: ED Notes Filed: 05/18/2024 14:13 Note Text: SBAR report to transport team at bedside. All belongings sent with pt. No further questions for this RN Normal [facility] ED NOTE HNO ID: [id number] Author: JULEE PALM APRN.LEMON GROWER Service: ? Author Type: Clinical Nurse Specialist Type: ED Notes Filed: 05/18/2024 13:45 Note Text: [facility] No further questions for this RN [facility] ED PROV NOTEon 05-18-2024 ED PROV NOTE HNO ID: [id number] Author: RAEGAN MORA DO Service: Emergency Medicine [...] pulses. Pulmonary: (more content not included)... Normal [facility] HISTORY PHYSICALon HISTORY PHYSICAL HNO ID: [id number] Author: OMAR ARTHUR MD Service: Obstetrics Author [...] was discussed with the patient or authorized ambulatory services representative. The patient or authorized ambulatory services representative has agreed to proceed with the [...] preeclampsia Vaginal discharge during in second trimester ([facility]) - vaginitis swabs collected - negative for pooling, nitrazine negative, and ferning negative with EDWARD of 20.45 > low concern for rupture of membranes Abdominal cramping affecting ([facility]) - cervix visually closed - denies currently, low concern for labor - UA with positive bacteria, denies dysuria or frequency, urine culture collected Patient safe to discharge home with return precautions provided. SIGNATURE: Rock Swan MD PATIENT NAME: Richard Smith DATE: May 18, 2024 TIME: 3:50 PM Normal [facility] Lipase SerPl-cCncon 05-19-19 25 Lipase [Catalytic activity/Vol] 20 U/L Normal [facility] Comment on above: Order Comment: Speci men Type: BLOOD SPECIMEN [facility]ing Facility: [facility] Address: [address] [place] [address] Performed By: #### 2 4323-8, 67917-2, 3039-3 #### [facility] CLIA [id number] [address] [place] [address] [place] Magnesium SerPl-mCncon 05-18 Magnesium [Mass/Vol] 1.8 mg/dL Normal 1.7-2.3 [facility] Comment on above: Order Comment: Speci men Type: BLOOD SPECIMEN Ordering Facility: [facility] Address: [address] [place] [address] Performed By: #### 2 4323-8, 28839-8, 3039-3 #### [facility] CLIA [id number] [address] [place] [address] [place] Urinalysis complete panel (U )on 05-18-2024 Bacteria LM.HPF (Urine sed) [#/Area] Moderate Abnormal None Seen [facility] Comment on above: Order Comment: Speci men Type: URINE SPECIMEN Ordering Facility: [facility] Address: [address] [place] [address] Performed By: #### 2 4356-8 #### [facility] CLIA [id number] [address] [place] [address] [place] Bilirubin Ql (U) Negative Normal Negative [facility] Comment on above: Order Comment: Speci men Type: URINE SPECIMEN Ordering Facility: [facility] Address: [address] [place] [address] Performed By: #### 2 4356-8 #### [facility] CLIA [id number] [address] [place] Clarity (Unsp spec) Clear Normal Clear [facility] Comment on above: Order Comment: Speci men Type: URINE SPECIMEN Ordering Facility: [facility] Address: [address] [place] [address] Performed By: #### 2 4356-8 #### [facility] CLIA [id number] [address] OF [facility] Color (U) Yellow Normal Yellow [facility] Comment on above: Order Comment: Speci men Type: URINE SPECIMEN Ordering Facility: [facility] Address: [address] [place] [address] Performed By: #### 2 4356-8 #### [facility] CLIA [id number] [address] Epithelial cells LM.HPF (Urine sed) [#/Area] Moderate Normal [facility] Comment on above: Order Comment: Speci men Type: URINE SPECIMEN Ordering Facility: [facility] Address: [address] [place] [address] Result Comment: Few Performed By: #### 2 4356-8 #### [facility] CLIA [id number] [address] [place] Glucose Test strip (U) [Mass/Vol] Negative Normal Negative [facility] Comment on above: Order Comment: Speci men Type: URINE SPECIMEN Order[facility] Facility[facility] Address: [address] [place] [address] Performed By: #### 2 4356-8 #### [facility] CLIA [id number] [address] [place] Hemoglobin Ql (U) Negative Normal Negative [facility] Comment on above: Order Comment: Speci men Type: URINE SPECIMEN Ordering Facility: [facility] Address: [address] [place] [address] Performed By: #### 2 4356-8 #### [facility] CLIA [id number] [address] [place] [address] [facility] [place] Ketones Ql (U) Trace Abnormal Negative [facility] Comment on above: Order Comment: Speci men Type: URINE SPECIMEN Ordering Facility: [facility] Address: [address] [place] [address] Performed By: #### 2 4356-8 #### [facility] CLIA [id number] [address] [place] Leukocyte esterase Test strip Ql (U) Negative Normal Negative [facility] Comment on above: Order Comment: Speci men Type: URINE SPECIMEN Ordering Facility: [facility] Address: [address] [place] [address] Performed By: #### 2 4356-8 #### [facility] CLIA [id number] [address] [place] Nitrite Ql (U) Negative Normal Negative [facility] Comment on above: Order Comment: Speci men Type: URINE SPECIMEN Ordering Facility: [facility] Address: [address] [place] [address] Performed By: #### 2 4356-8 #### [facility] CLIA [id number] [address] pH (U) 6.0 [pH] Normal 5.0-8.0 [facility] Comment on above: Order Comment: Speci men Type: URINE SPECIMEN Ordering Facility: [facility] Address: [address] [place] [address] Performed By: #### 2 4356-8 #### [facility] CLIA [id number] [address] [place] [address] [place] Protein (U) [Mass/Vol] Negative Normal Negative [facility] Comment on above: Order Comment: Speci men Type: URINE SPECIMEN Ordering Facility: [facility] Address: [address] [place] [address] Performed By: #### 2 4356-8 #### [facility] CLIA [id number] [address] [place] RBC LM.HPF (Urine sed) [#/Area] 0-3 /HPF Normal 0-3 /HPF [facility] Comment on above: Order Comment: Speci men Type: URINE SPECIMEN Ordering Facility: [facility] Address: [address] [place] [address] Performed By: #### 2 4356-8 #### [facility] CLIA [id number] [address] Specific gravity (U) [Rel density] 1.025 Normal 1.005-1.030 [facility] Comment on above: Order Comment: Speci men Type: URINE SPECIMEN Ordering Facility: [facility] Address: [address] [place] [address] Performed By: #### 2 4356-8 #### [facility] CLIA [id number] [address] Urobilinogen Ql (U) 0.2 EU/dL Normal 0.2-1.0 EU/dL [facility] Comment on above: Order Comment: Speci men Type: URINE SPECIMEN Ordering Facility: [facility] Address: [address] [place] [address] Performed By: #### 2 4356-8 #### [facility] CLIA [id number] [address] WBC LM.HPF (Urine sed) [#/Area] 0-5 /HPF Normal 0-5 /HPF [facility] Comment on above: Order Comment: Speci men Type: URINE SPECIMEN Ordering Facility: [facility] Address: [address] [place] [address] Performed By: #### 2 4356-8 #### [facility] CLIA [id number] [address] FETALon 04-16-2024 + --- -----+-+ Pediatric Cardiology Echocardiogram Report + -----+-+ NAME: MS. RICHARD SMITH : 1995 PT ID#: [id number] Age: 28 years Sex: F STUDY DATE: 04/16/2024 1:36:17 PM MARYJANE: 08/11/2024 GA: 23w2d Image Quality: The images were of adequate diagnostic quality. Referring Physician: Susana Castillo Diagnosing Physician: Reagan Bermeo MD Java Groovy Developer: Elizabeth Kirkland 2nd Java Groovy Developer: Diagnosis: O35.8XX0 cardiac abnormality, antepartum, single fetus or unspecified Procedure Code: 36498, 88227, 98580 Echo, Complete (w/Doppler and color) Exam Location: [...] premature atrial contractions. HR 148 bpm Mechanical [place] 120 ms Segmental Anatomy, Cardiac Position and [...] patent ductus (more content not included)... Normal [facility] 03-31-2024 [facility] Telephone (OBGYWM) RICHARD SMITH ([id number]) 1995 F Date Time Provider Department 03/31/24 SUSANA CASTILLO OBGYWM During your visit today, we recorded the following information about you: Julee Haskins 03/31/2024 9:47 AM Signed Please submit OB US orders. 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 Normal [facility] CNPChiquita 03-28-2024 CNPN Telephone (OBGYWM) RICHARD SMITH ([id number]) 1995 F Date Time Provider Department 03/28/24 SUSANA CASTILLO OBGYW During your visit today, we recorded the following information about you: Juana Traylor RN 03/28/2024 5:11 PM Signed Susana Castillo MD to [facility] Ob-Haulpak Driver Pool 03/28/24 1:13 PM Result Note Add [...] echo. Please file order. Will send patient Guestmobt message with phone number once order is filed. HAYDEN Ruiz Sara, MD 03/31/2024 9:14 AM Signed filed Elizabeth Clarke RN 03/31/2024 9:25 AM Signed RedMicat message sent to patient. Elizabeth Clarke RN [...] Visit Diagnosis:21 weeks gestation of [Z3A.21] Order(s):ECHO [[id number]] Order #: [id number]: 1 FUTURE Prescriptions as of 04/23/2024 - [...] Status:Closed by ELIZABETH CLARKE on 03/31/24 Normal [facility] Examination level ultrasound on 03-28-2024 Indication [...] 14 oz EFW by: Hadlock (HC-AC-FL) Extended Compression Molding Machine Tender 5.9 mm CM 2.6 mm <1% Nicolaides [...] normal LVOT view: normal 3-vessel view: normal 6-gwmzpf-lpehsso view: normal Heart / Thorax Situs: situs [...] Read By: Florina Lo M.D. MATERNAL MEDICINE [facility] Radiology Study observation (narrative) [facility] Examination level ultrasound on 02-28-2024 [...] 6 oz EFW by: Hadlock (HC-AC-FL) Extended Compression Molding Machine Tender 5.0 mm Extremities / Bony Struc FL / HC 0.17 67% Hadlock Other Structures FHR 157 bpm Anatomy Cranium: normal Lateral ventricles: normal Choroid plexus: normal Midline falx: normal Cerebellum: normal Cisterna magna: normal Lips: normal Profile: normal Nose: normal 4-chamber view: normal RVOT view: normal LVOT view: normal 3-vessel view: suboptimally visualized 0-rkiyvi-fdadozf view: suboptimally visualized Heart / Thorax Diaphragm: [...] Read By: Florina Lo M.D. MATERNAL MEDICINE [facility] Radiology Study observation (narrative) [facility] TSH SerPl-aCncon 02-28-2024 TSH Qn 2.790 m[IU]/L Normal 0.270-4.200 [facility] Comment on above: Order Comment: Speci men Type: BLOOD SPECIMENOrdering Facility: [facility] Address: [address] [place], [place] [address] [address] Result Comment: If t he patient is , TSH reference range varies by gestational period: First Trimester (weeks 9-12): 0.180-2.990 mIU/L Second Trimester: 0.110-3.980 mIU/L Third Trimester: 0.480-4.710 mIU/L Loki Montero et al. A Practical Approach for the Verifications and Determination of Site- and Trimester-Specific Reference Intervals for Thyroid Function tests in . Thyroid, 2019:29:3:412-420. Clifford Lock, et al. 2017 Guidelines of the [place] Thyroid Association for the Diagnosis and Management of Thyroid Disease during and the . Thyroid, 2017:27:3:315-389. Performed By: #### 3 016-3 ####[facility] [id number] [address] [place] Rox 02-20-2024 CNPN Telephone (OBGYWM) RICHARD SMITH ([id number]) 1995 F Date Time Provider Department 02/20/24 ALFRED CHILDRESS OBGYWM During your visit today, we recorded the following information about you: Juana Traylor, RN 02/20/2024 8:52 AM Signed 15w2d Calling because she went to [facility] ER last night and was diagnosed with [...] Date Reviewed: 02/14/2024 Reviewed by: Jose Brink APRN.DESTATICIZER FEEDER - Fully Assessed Reason for Visit: Question (OB Question) [9098] Prescriptions as of 02/20/2024 - levothyroxine (SYNTHROID) [...] Status:Closed by JUANA TRAYLOR on 02/20/24 Normal [facility] Emergency Department Summary on 02-19-2024 Emergency Department Summary [facility] Medical Records Department [address] [place] [address] Emergency Department Summary 02/19/24 MR#: [id number] Acct: [id number] Name: RICHARD SMITH Rep #: [id number] : 1995 28 From: Kaz Schrader DO PCP: Care Physician,No Primary Status:DEP ER Location: ED HPI History of Present Illness Chief Complaint: Cough Informant: patient and spouse/S.O. Narrative Narrative: Patient is a 28-year-old female who is a roughly 15 weeks . She states her other child got sick over Mcwilliams break and then she has been having [...] pneumonia and therefore comes in for evaluation [facility] Medical History unable to obtain Home Medications [...] patient potential (more content not included)... Normal [facility] CNOVon 02-14-2024 CNOV Office Visit (UCWSTR ) RICHARD SMITH ([id number]) 1995 F Date Time Provider Department 02/14/24 2:30 PM [facility] During your visit today, we recorded the following information about you: Temperature Pulse Respiration Blood pressure 98.3 degrees 100/minute 18/minute 105/72 Weight 95 kg Jose Brink, CLINICAL REVIEWER.DESTATICIZER FEEDER 02/14/2024 2:54 PM Signed Subjective HPI Nontoxic-appearing [...] is no (more content not included)... Normal [facility] COVID AND INFLUENZA A/B AND RSV PCR, ROUTINEon 02-14-2024 SARS-CoV-2 (COVID-19) RNA MARK ANTHONY+probe Ql (Unsp spec) SARS-COV-2 (AGENT OF COVID-19) RNA: Not detected INFLUENZA A RNA: Not detected INFLUENZA B RNA: Not detected RESPIRATORY SYNCYTIAL VIRUS (RSV) RNA: Not detected Normal [facility] Comment on above: Performed By: #### C VFLRS ####[facility] [id number] [address] OF [facility] Rox 02-01-2024 CNPN Telephone (OBGYWM) RICHARD SMITH ([id number]) 1995 F Date Time Provider Department 02/01/24 [...] Status:Closed by JUANA TRAYLOR on 02/01/24 Normal [facility] BACTERIAL VAGINOSIS NAATon 1 04-02-2023 Lactobacillus crispatus+gasseri+mary senii + Gardnerella vaginalis + Atopobium vaginae rRNA MARK ANTHONY+probe Ql (Vag fld) Not detected Normal Not detected [facility] Comment on above: Order Comment: Speci men Type: SWABOrdering Facility: [facility] Address: [address] [place] [address] Performed By: #### ELKE WANG ####[facility] LABCLIA [id number] [facility] [place] [address] [address] [place] DARYA/TRICHOMONAS NAATon 1 04-02-2023 C. glabrata RNA MARK ANTHONY+probe Ql (Vag fld) Not detected Normal Not detected [facility] Comment on above: Order Comment: Speci men Type: SWABOrdering Facility: [facility] Address: [address] [place] [address] Performed By: #### B VAMP, CVTV ####[facility]IA [id number] [address] [place] Darya sp DNA MARK ANTHONY+probe Ql (Vag fld) Detected Abnormal Not detected [facility] Comment on above: Order Comment: Speci men Type: SWABOrdering Facility: [facility] Address: [address] [place] [address] Result Comment: The Darya species group target includes C. albicans, C. tropicalis, C. parapsilosis, and C. dubliniensis. Performed By: #### B VAMP, CVTV ####[facility]IA [id number] [address] OF [facility] T. vaginalis DNA MARK ANTHONY+probe Ql (Unsp spec) Not detected Normal Not detected [facility] Comment on above: Order Comment: Speci men Type: SWABOrdering Facility: [facility] Address: [address] [place] [address] Performed By: #### B VAMP, CVTV ####[facility]IA [id number] [address] [place] Rox 01-31-2024 [facility] Telephone (4CQ) RICHARD SMITH ([id number]) 1995 F Date Time Provider Department 01/31/24 [...] trimester, unspecified obesity type [O99.211] Order(s):OBSTETRIC ULTRASOUND [facility] [[id number]] Order #: [id number]: 1 FUTURE Prescriptions as of 01/31/2024 - [...] Status:Closed by ELSA CHAUDHARY on 01/31/24 Normal [facility] nuchal translucency me asured by Claudette 01-31-2024 Indication First trimester anatomic survey, Maternal obesity, BMI >30, History of preeclampsia Impression remote read The patient is referred for a first trimester anatomy scan including nuchal translucency measurement as clinically indicated. - Single, live, intrauterine . - Mcmillin rump length measurement is consistent with the [...] view: normal 4-chamber view with color: normal 2-rxblox-fqissno view: normal Abdominal cord insertion: normal Stomach: [...] Read By: Florina Lo M.D. MATERNAL MEDICINE [facility] Radiology Study observation (narrative) [facility] [id number] PLUSon 01-15-2024 Cell-free DNA./Cell-free DNA.total Dosage of chromosome-specific cfDNA (cfDNA) [Molar fraction] 11% Normal [facility] Comment on above: Order Comment: Speci men Type: BLOOD SPECIMEN [facility]ing Facility: [facility] Address: [address] [place] [address] Performed By: #### M AT21 #### [facility] CLIA [id number] [address] [place] [address] Chr 13+18+21+X+Y aneuploidy Dosage of chromosome-specific cfDNA Ql (cfDNA) Negative Normal [facility] Comment on above: Order Comment: Speci men Type: BLOOD SPECIMEN Ordering Facility: [facility] Address: [address] [place] [address] Performed By: #### M AT21 #### [facility] CLIA [id number] [address] [place] [address] Chr 21 trisomy Dosage of chromosome-specific cfDNA Ql (cfDNA) Negative Normal [facility] Comment on above: Order Comment: Speci men Type: BLOOD SPECIMEN [facility]ing Facility: [facility] Address: [address] [place] [address] Performed By: #### M AT21 #### [facility] CLIA [id number] [address] [place] [address] Chr X and Y aneuploidy risk Sequencing Ql (cfDNA) [Interp] Not detected Normal [facility] Comment on above: Order Comment: Speci men Type: BLOOD SPECIMEN [facility] Address: [address] [place] [address] Result Comment: Not Detected Not Detected Performed By: #### M AT21 #### [facility] CLIA [id number] [address] [place] [address] Citation Javid (Reference lab test) Comment [facility] Comment on above: Order Comment: Speci men Type: BLOOD SPECIMEN Ordering Facility: [facility] Address: [address] [place] [address] Result Comment: 1. P kaity JOSUE, et al. Anayeli Med. 2012;14(3):296-305. 2. Alfredo LOUIE et al. Prenat Diag. 2013;33(6):591-597. 3. Mike C, et al. Clin Chem. 2015 Apr;61(4):608-616. 4. Tacos JOSUE, et al. Anayeli Med. 2011;13(11):913-920. 5. ACOG/SMFM Practice Bulletin No. 226, Nov 2019. Performed By: #### M AT21 #### [facility] CLIA [id number] [address] [place] [address] Gestational age Estimated from conception date Estrada [facility] Comment on above: Order Comment: Speci men Type: BLOOD SPECIMEN Ordering Facility: [facility] Address: [address] [place] [address] Performed By: #### M AT21 #### [facility] CLIA [id number] [address] [place] [address] GESTATIONALAGE AGE > OR = [address]W [address] [facility] Comment on above: Order Comment: Speci men Type: BLOOD SPECIMEN Ordering Facility: [facility] Address: [address] [place] [address] Performed By: #### M AT21 #### [facility] CLIA [id number] [address] [place] [address] Laboratory comment Javid (Report) Comment [facility] Comment on above: Order Comment: Speci men Type: BLOOD SPECIMEN Ordering Facility: [facility] Address: [address], [place] [address] Result Comment: The MaterniT(R) 21 PLUS laboratory-developed test (LDT) analyzes circulating cell-free DNA from a maternal blood sample. This test is used for screening purposes and not diagnostic. Clinical correlation is recommended. Validation data on twin pregnancies is limited and the ability of this test to detect aneuploidy in higher multiple gestations has not yet been validated. Performed By: #### M AT21 #### [facility] CLIA [id number] [address] [place] [address] director of partner marketing name Nom (Provider) Comment [facility] Comment on above: Order Comment: Teodora sanderson Type: BLOOD SPECIMEN Ordering Facility: [facility] Address: [address] [place] [address] Result Comment: This specimen showed an expected representation of chromosome 21, 18 and 13 material. Clinical correlation is suggested. Comment Vu Estrada MD, PhD, Director, [employer] Performed By: #### M AT21 #### [facility] CLIA [id number] [address] [place] [id number] LIMITATIONS OF THE TEST Comment [facility] Comment on above: Order Comment: Teodora sanderson Type: BLOOD SPECIMEN Ordering Facility: [facility] Address: [address] [place] [address] Result Comment: Ricardo lock the results of [...] Fragmin(R)). Performed By: #### M AT21 #### [facility] CLIA [id number] [address] [place] [address] Monosomy X risk Dosage of chromosome-specific cfDNA Ql (Plasma cell-free+WBC DNA) [Interp] Not detected Normal [facility] Comment on above: Order Comment: Teodora sanderson Type: BLOOD SPECIMEN Ordering Facility: [facility] Address: [address] [place] [address] Performed By: #### M AT21 #### [facility] CLIA [id number] [address] [place] [address] NEGATIVE PREDICTIVE VALUE Note Normal [facility] Comment on above: Order Comment: Teodora sanderson Type: BLOOD SPECIMEN Ordering Facility: [facility] Address: [address] [place], [place] [address] Result Comment: The Negative Predictive Value (NPV) for trisomy 21, 18, and 13 is greater than 99%. The NPV for SCA and ESS cannot be calculated as SCA and ESS are only reported when an abnormality is detected. Performed By: #### M AT21 #### [facility] CLIA [id number] [address] [place] [address] NOTE Comment Normal [facility] Comment on above: Order Comment: Teodora sanderson Type: BLOOD SPECIMEN Ordering Facility: [facility] Address: [address] [place], [place] [address] Result Comment: See Notes [employer] is a subsidiary of [employer], using the brand [employer]. This test was developed and its performance characteristics determined by [employer]. It has not been cleared or approved by the Food and Drug Administration. This laboratory is certified under the Clinical Laboratory Improvement Amendments (CLIA) as qualified to perform high complexity clinical laboratory testing and accredited by the [employer] (CAP). If there is future clinical need for adding MaterniT GENOME testing, this specimen will be available until term. [facility] samples will not be retained beyond 60 days. [facility] patients will have to send a new sample for re-sequencing ([facility] Test Code: [id number]). Performed By: #### M AT21 #### [facility] [place] [id number] [address] [place] [address] PERFORMANCE CHARACTERISTICS Note Normal [facility] Comment on above: Order Comment: Teodora sanderson Type: BLOOD SPECIMEN Ordering Facility: [facility] Address: [address] [place] [address] Result Comment: ! Sex ! Accuracy: 99.4% [...] only. Performed By: #### M AT21 #### [facility] [place] [id number] [address] [place] [address] POSITIVE PREDICTIVE VALUE N/A Normal [facility] Comment on above: Order Comment: Speci men Type: BLOOD SPECIMEN Ordering Facility: [facility] Address: [address] [place] [address] Performed By: #### M AT21 #### [facility] CLIA [id number] [address] [place] [address] Reference Lab Test Method Comment [facility] Comment on above: Order Comment: Speci men Type: BLOOD SPECIMEN Ordering Facility: [facility] Address: [address] [place] [address] Result Comment: See Notes Circulating cell-free DNA [...] 22. Performed By: #### M AT21 #### [facility] CLIA [id number] [address] [place] [address] Sex Dosage of chromosome-specific cfDNA Nom (cfDNA) Comment Normal [facility] Comment on above: Order Comment: Speci men Type: BLOOD SPECIMEN Ordering Facility: [facility] Address: [address] [place] [address] Result Comment: Cons istent with Male Performed By: #### M AT21 #### [facility] CLIA [id number] [address] [place] [address] Test performance information Javid (Unsp spec) Comment [facility] Comment on above: Order Comment: Speci men Type: BLOOD SPECIMEN Ordering Facility: [facility] Address: [address] [place] [address] Result Comment: The performance characteristics of the MaterniT(R) 21 PLUS laboratory-developed test (LDT) have been determined in a clinical validation study with women at increased risk for chromosomal aneuploidy.[1-4] Performed By: #### M AT21 #### [facility] CLIA [id number] [address] [place] [address] Trisomy 13 risk Dosage of chromosome-specific cfDNA Ql (cfDNA) [Interp] Negative Normal [facility] Comment on above: Order Comment: Speci men Type: BLOOD SPECIMEN Ordering Facility: [facility] Address: [address] [place] [address] Performed By: #### M AT21 #### [facility] CLIA [id number] [address] [place] [address] Trisomy 18 risk Dosage of chromosome-specific cfDNA Ql (Plasma cell-free+WBC DNA) [Interp] Negative Normal [facility] Comment on above: Order Comment: Speci men Type: BLOOD SPECIMEN Ordering Facility: [facility] Address: [address] [place] [address] Performed By: #### M AT21 #### [facility] CLIA [id number] [address] [place] [address] [place] 12-30-2023 Indication Viability, dating, history of PCOS Impression Anteverted uterus measuring 105 x 69 x 54 mm. - Single, live, intrauterine . - An intrauterine gestational sac with a yolk sac and pole is present. - Mcmillin rump length measurement is NOT consistent with [...] Read By: Kaitlyn Blank M.D. MATERNAL MEDICINE [facility] [place] 12-28-2023 Radiology Study observation (narrative) [facility] Blood type and Indirect anti body screen panel (Bld)on 12-24-2023 ABO group Nom (Bld) A [facility] Blood group antibody screen Ql Negative [facility] D Ag Ql (Bld) Positive [facility] ABO group Nom (Bld) A Normal [facility] Comment on above: Performed By: #### 3 4532-2 #### TERESA YOON ([id number]) [facility] ([facility]) [address] [place] [address] Blood group antibody screen Ql Negative [facility] Comment on above: Performed By: #### 3 4532-2 #### TERESA YOON ([id number]) [facility] [address] [place] [address] [place] D Ag Ql (Bld) Positive [facility] Comment on above: Performed By: #### 3 4532-2 #### TERESA YOON ([id number]) [facility] ([facility]) [address] [place] [address] US CBC W Auto Differential pane l (Bld)on 12-24-2023 Basophils (Bld) [#/Vol] 0.04 10*3/uL [facility] Basophils/100 WBC (Bld) 0.5 % 0.0 - 2.0 % [facility] Eosinophils (Bld) [#/Vol] 0.24 10*3/uL [facility] Eosinophils/100 WBC (Bld) 2.8 % 0.0 - 6.0 % [facility] Erythrocyte distribution width (RBC) [Ratio] 12.4 % 11.5 - 14.5 % [facility] Hematocrit (Bld) [Volume fraction] 39.4 % 36.0 - 46.0 % [facility] Hemoglobin (Bld) [Mass/Vol] 13.3 g/dL 12.0 - 16.0 g/dL [facility] Immature granulocytes (Bld) [#/Vol] 0.05 10*3/uL [facility] Immature granulocytes/100 WBC (Bld) 0.6 % 0.0 - 0.9 % [facility] Comment on above: Immature Granulocyte Count (IG) includes promyelocytes, myelocytes and metamyelocytes but does not include bands. Percent differential counts (%) should be interpreted in the context of the absolute cell counts (cells/UL). Lymphocytes (Bld) [#/Vol] 2.46 10*3/uL [facility] Lymphocytes/100 WBC (Bld) 28.3 % 13.0 - 44.0 % [facility] MCH (RBC) [Entitic mass] 29.8 pg 26.0 - 34.0 pg [facility] MCHC (RBC) [Mass/Vol] 33.8 g/dL 32.0 - 36.0 g/dL [facility] MCV (RBC) [Entitic vol] 88 fL 80 - 100 fL [facility] Monocytes (Bld) [#/Vol] 0.52 10*3/uL [facility] Monocytes/100 WBC (Bld) 6 % 2.0 - 10.0 % [facility] Neutrophils (Bld) [#/Vol] 5.38 10*3/uL [facility] Comment on above: Percent differential counts (%) should be interpreted in the context of the absolute cell counts (cells/uL). Neutrophils/100 WBC (Bld) 61.8 % 40.0 - 80.0 % [facility] Nucleated RBC/100 WBC (Bld) [Ratio] 0 % [facility] Platelets (Bld) [#/Vol] 211 10*3/uL [facility] RBC (Bld) [#/Vol] 4.46 10*6/uL [facility] WBC (Bld) [#/Vol] 8.7 10*3/uL [facility] Basophils (Bld) [#/Vol] 0.04 x10*3/uL Normal 0.00-0.10 [facility] Comment on above: Performed By: #### 5 7021-8 #### TERESA YOON ([id number]) [facility] ([facility]) [address] [place] [address] Basophils/100 WBC (Bld) 0.5 % Normal 0.0-2.0 [facility] Comment on above: Performed By: #### 5 7021-8 #### TERESA YOON ([id number]) [facility] ([facility]) [address] [place] [address] Eosinophils (Bld) [#/Vol] 0.24 x10*3/uL Normal 0.00-0.70 [facility] Comment on above: Performed By: #### 5 7021-8 #### TERESA YOON ([id number]) [facility] ([facility]) [address] [place] [address] Eosinophils/100 WBC (Bld) 2.8 % Normal 0.0-6.0 [facility] Comment on above: Performed By: #### 5 7021-8 #### TERESA YOON ([id number]) [facility] ([facility]) [address] [place] [address]9747 Erythrocyte distribution width (RBC) [Ratio] 12.4 % Normal 11.5-14.5 [facility] Comment on above: Performed By: #### 5 7021-8 #### TERESA YOON ([id number]) [facility] ([facility]) [address] [place] [address]1998 Hematocrit (Bld) [Volume fraction] 39.4 % Normal 36.0-46.0 [facility] Comment on above: Performed By: #### 5 7021-8 #### TERESA YOON ([id number]) [facility] ([facility]) [address] [place] [address] Hemoglobin (Bld) [Mass/Vol] 13.3 g/dL Normal 12.0-16.0 [facility] Comment on above: Performed By: #### 5 7021-8 #### TERESA YOON ([id number]) [facility] ([facility]) [address] [place] [address] Immature granulocytes (Bld) [#/Vol] 0.05 x10*3/uL Normal 0.00-0.70 [facility] Comment on above: Performed By: #### 5 7021-8 #### TERESA YOON ([id number]) [facility] ([facility]) [address] [place] [address] Immature granulocytes/100 WBC (Bld) 0.6 % Normal 0.0-0.9 [facility] Comment on above: Result Comment: Xiao ture Granulocyte Count (IG) includes promyelocytes, myelocytes and metamyelocytes but does not include bands. Percent differential counts (%) should be interpreted in the context of the absolute cell counts (cells/UL). Performed By: #### 5 7021-8 #### TERESA YOON ([id number]) [facility] ([facility]) [address] [place] [address] Lymphocytes (Bld) [#/Vol] 2.46 x10*3/uL Normal 1.20-4.80 [facility] Comment on above: Performed By: #### 7021-8 #### TERESA YOON ([id number]) [facility] ([facility]) [address] [place] [address] Lymphocytes/100 WBC (Bld) 28.3 % Normal 13.0-44.0 [facility] Comment on above: Performed By: #### 5 7021-8 #### TERESA YOON ([id number]) [facility] ([facility]) [address] [place] [address] MCH (RBC) [Entitic mass] 29.8 pg Normal 26.0-34.0 [facility] Comment on above: Performed By: #### 5 7021-8 #### TERESA YOON ([id number]) [facility] ([facility]) [address] [place] [address] MCHC (RBC) [Mass/Vol] 33.8 g/dL Normal 32.0-36.0 [facility] Comment on above: Performed By: #### 5 7021-8 #### TERESA YOON ([id number]) [facility] ([facility]) [address] [place] [address] MCV (RBC) [Entitic vol] 88 fL Normal 80-100 [facility] Comment on above: Performed By: #### 5 7021-8 #### TERESA YOON ([id number]) [facility] ([facility]) [address] [place] [address] Monocytes (Bld) [#/Vol] 0.52 x10*3/uL Normal 0.10-1.00 [facility] Comment on above: Performed By: #### 5 7021-8 #### TERESA YOON ([id number]) [facility] ([facility]) [address] [place] [address] Monocytes/100 WBC (Bld) 6.0 % Normal 2.0-10.0 [facility] Comment on above: Performed By: #### 5 7021-8 #### TERESA YOON ([id number]) [facility] ([facility]) [address] [place] [address]874 Neutrophils (Bld) [#/Vol] 5.38 x10*3/uL Normal 1.20-7.70 [facility] Comment on above: Result Comment: Perc ent differential counts (%) should be interpreted in the context of the absolute cell counts (cells/uL). Performed By: #### 5 7021-8 #### TERESA YOON ([id number]) [facility] ([facility]) [address] [place] [address]88[address] Neutrophils/100 WBC (Bld) 61.8 % Normal 40.0-80.0 [facility] Comment on above: Performed By: #### 5 7021-8 #### TERESA YOON ([id number]) [facility] ([facility]) [address] [place] [address]8435 Nucleated RBC/100 WBC (Bld) [Ratio] 0.0 /100 WBCs Normal 0.0-0.0 [facility] Comment on above: Performed By: #### 5 7021-8 #### TERESA YOON ([id number]) [facility] ([facility]) [address] [place] [address]6780 Platelets (Bld) [#/Vol] 211 x10*3/uL Normal 150-450 [facility] Comment on above: Performed By: #### 5 7021-8 #### TERESA YOON ([id number]) [facility] ([facility]) [address] [place] [address] 14617 RBC (Bld) [#/Vol] 4.46 x10*6/uL Normal 4.00-5.20 [facility] Comment on above: Performed By: #### 5 7021-8 #### TERESA YOON ([id number]) [facility] ([facility]) [address] [place] [address] WBC (Bld) [#/Vol] 8.7 x10*3/uL Normal 4.4-11.3 [facility] Comment on above: Performed By: #### 5 7021-8 #### TERESA YOON ([id number]) [facility] ([facility]) [address] [place], [place] [address] Choriogonadotropin.beta subu niton 12-24-2023 [place] [address] m[IU]/mL High <5 U [facility] Comment on above: Order Comment: Total HCG measurement is performed using the [employer] Access Immunoassay which detects intact HCG and free beta HCG subunit. This test is not indicated for use as a tumor marker. HCG testing is performed using a different test methodology at [facility] than other [facility] [place] [facility]. Direct result comparison should only be made [...] By: #### 2 1198-7 #### TERESA YOON ([id number]) [facility] ([facility]) [address] [place], [place] [address] HCG.beta subunit Qnon 2023 Interpretation and review of laboratory results Abnormal [facility] Total HCG measuremen t is performed using the Saw Harpreet Access Immunoassay which detects intact HCG and free beta HCG subunit. This test is not indicated for use as a tumor marker. HCG testing is performed using a different test methodology at [facility] than other [facility] [place] [facility]. Direct result comparison should only be made within the same method. [facility] US OB LESS THAN 14 WEEKS EAR [place] 12-24-2023 US OB LESS THAN 14 WEEKS EARLY Interpreted By: Matthew Mendieta, STUDY: US OB LESS THAN 14 WEEKS EARLY; 12/24/2023 11:06 am INDICATION: Signs/Symptoms:vag bleed. COMPARISON: None ACCESSION NUMBER(S): [id number] ORDERING CLINICIAN: SEGUNDO LOPEZ TECHNIQUE: Grayscale images [...] Matthew Mendieta 12/24/2023 11:23 AM Dictation workstation: [id number] [facility] US for in first tr [facility] 12-24-2023 There is a single living intrauterine identified with an average ultrasound age of 6 weeks 4 days +/-3 days with an estimated date delivery of 08/14/2024. MACRO: none Signed by: Matthew Mendieta 12/24/2023 11:23 AM Dictation workstation: [id number] Interpreted By: Matthew Mendieta, STUDY: US OB LESS THAN 14 WEEKS EARLY; 12/24/2023 11:06 am INDICATION: Signs/Symptoms:vag bleed. COMPARISON: None ACCESSION NUMBER(S): [id number] ORDERING CLINICIAN: SEGUNDO LOPEZ TECHNIQUE: Grayscale images [...] Mendieta MD - 12/24/2023 Interpreted By: Matthew Mendieat, STUDY: US OB LESS THAN 14 WEEKS EARLY; 12/24/2023 11:06 am INDICATION: Signs/Symptoms:vag bleed. COMPARISON: None ACCESSION NUMBER(S): [id number] ORDERING CLINICIAN: SEGUNDO LOPEZ TECHNIQUE: Grayscale images [...] Matthew Mendieta 12/24/2023 11:23 AM Dictation workstation: [id number] [facility] Work Phone: Radiology Study observation (narrative) [facility] Work Phone: US for in first tr imesterOrdered By: Matthew Mendieta on 12-24-2023 [facility] Work Phone: Urinalysis complete W Reflex Culture panel (U)on 12-24-2023 Appearance (U) Turbid Abnormal Clear [facility] Bacteria Auto (Urine sed) [#/Area] 4+ Abnormal NONE SEEN /HPF [facility] Bilirubin (U) [Mass/Vol] Negative NEGATIVE [facility] Color (U) Light-Yellow Light-Yellow, Yellow, Dark-Yellow [facility] Crystals.amorphous Computer assisted (U) [#/Area] 1+ NONE, 1+, 2+ /HPF [facility] Epithelial cells.squamous Auto (Urine sed) [#/Area] 26-50 (1+) Reference range not established. /HPF [facility] Glucose Auto test strip (U) [Mass/Vol] Normal Normal mg/dL [facility] Interpretation and review of laboratory results Abnormal [facility] Ketones (U) [Mass/Vol] Negative NEGATIVE mg/dL [facility] Leukocyte esterase Auto test strip Ql (U) Negative NEGATIVE [facility] Mucus Auto (Urine sed) [#/Area] FEW Reference range not established. /LPF [facility] Nitrite Auto test strip Ql (U) Negative NEGATIVE [facility] pH (U) 6 [pH] 5.0, 5.5, 6.0, 6.5, 7.0, 7.5, 8.0 [facility] Protein (U) [Mass/Vol] 10 (TRACE) NEGATIVE, 10 (TRACE), 20 (TRACE) mg/dL [facility] RBC (U) [#/Vol] Negative NEGATIVE [facility] RBC Auto (Urine sed) [#/Area] 1-2 NONE, 1-2, 3-5 /HPF [facility] Specific gravity (U) [Rel density] 1.017 1.005 - 1.035 [facility] Urobilinogen (U) [Mass/Vol] Normal Normal mg/dL [facility] WBC Auto (Urine sed) [#/Area] 1-5 1-5, NONE /HPF [facility] Appearance (U) Turbid Normal Clear [facility] Comment on above: Performed By: #### 5 8077-9 #### TERESA YOON ([id number]) [facility] ([facility]) [address] [place] [address] Bacteria Auto (Urine sed) [#/Area] 4+ /HPF Abnormal NONE SEEN [facility] Comment on above: Performed By: #### 5 8077-9 #### TERESA YOON ([id number]) [facility] ([facility]) [address] [place] [address] Bilirubin (U) [Mass/Vol] Negative Normal NEGATIVE [facility] Comment on above: Performed By: #### 5 8077-9 #### TERESA YOON ([id number]) [facility] ([facility]) [address] [place] [address] Color (U) Light-Yellow Normal Light-Yellow, Yellow, Dark-Yellow [facility] Comment on above: Performed By: #### 5 8077-9 #### TERESA YOON ([id number]) [facility] ([facility]) [address] [place] [address] Crystals.amorphous Computer assisted (U) [#/Area] 1+ /HPF Normal NONE, 1+, 2+ [facility] Comment on above: Performed By: #### 5 8077-9 #### TERESA YOON ([id number]) [facility] ([facility]) [address] [place] [address] Epithelial cells.squamous Auto (Urine sed) [#/Area] 26-50 (1+) Normal Reference range not established. [facility] Comment on above: Performed By: #### 5 8077-9 #### TERESA YOON (76999) [facility] ([facility]) [address] [place] [address] Glucose Auto test strip (U) [Mass/Vol] Normal Normal Normal [facility] Comment on above: Performed By: #### 5 8077-9 #### TERESA YOON ([id number]) [facility] ([facility]) [address] [place] [address] 21247 Ketones (U) [Mass/Vol] Negative Normal NEGATIVE [facility] Comment on above: Performed By: #### 5 8077-9 #### TERESA YOON ([id number]) [facility] ([facility]) [address] [place], [place] [address] Leukocyte esterase Auto test strip Ql (U) Negative Normal NEGATIVE [facility] Comment on above: Performed By: #### 5 8077-9 #### TERESA YOON ([id number]) [facility] ([facility]) [address] [place] [address] Mucus Auto (Urine sed) [#/Area] FEW Normal Reference range not established. [facility] Comment on above: Performed By: #### 5 8077-9 #### TERESA YOON ([id number]) [facility] ([facility]) [address] [place] [address] Nitrite Auto test strip Ql (U) Negative Normal NEGATIVE [facility] Comment on above: Performed By: #### 5 8077-9 #### TERESA YOON ([id number]) [facility] ([facility]) [address] [place] [address] 89852 pH (U) 6.0 [pH] Normal 5.0, 5.5, 6.0, 6.5, 7.0, 7.5, 8.0 [facility] Comment on above: Performed By: #### 5 8077-9 #### TERESA YOON ([id number]) [facility] ([facility]) [address] [place] [address] 50115 Protein (U) [Mass/Vol] 10 (TRACE) Normal NEGATIVE, 10 (TRACE), 20 (TRACE) [facility] Comment on above: Performed By: #### 5 8077-9 #### TERESA YOON ([id number]) [facility] ([facility]) [address] [place] [address] 89311 RBC (U) [#/Vol] Negative Normal NEGATIVE [facility] Comment on above: Performed By: #### 5 8077-9 #### TERESA YOON ([id number]) [facility] ([facility]) [address] [place] [address] RBC Auto (Urine sed) [#/Area] 1-2 Normal NONE, 1-2, 3-5 [facility] Comment on above: Performed By: #### 5 8077-9 #### TERESA YOON ([id number]) [facility] ([facility]) [address] [place] [address] Specific gravity (U) [Rel density] 1.017 Normal 1.005-1.035 [facility] Comment on above: Performed By: #### 5 8077-9 #### TERESA YOON ([id number]) [facility] ([facility]) [address] [place] [address] 28259 Urobilinogen (U) [Mass/Vol] Normal Normal Normal [facility] Comment on above: Performed By: #### 5 8077-9 #### TERESA YOON ([id number]) [facility] ([facility]) [address] [place] [address] 48743 WBC Auto (Urine sed) [#/Area] 1-5 Normal 1-5, NONE [facility] Comment on above: Performed By: #### 5 8077-9 #### TERESA YOON ([id number]) [facility] ([facility]) [address] [place] [address] hCG, quantitative, on 12-24-2023 [place] [address] m[IU]/mL High NINF U [facility] Comment on above: Low-level positive H CG [...] the source of the HCG elevation. B-HCG [facility] 4 HCG.beta subunit Qn 3732.0 m[IU]/mL High <5.0 [facility] Comment on above: Order Comment: Speci maria e Type: BLOOD SPECIMEN Ordering Facility: [facility] Address: [address] [place] [address] Result Comment: HARDEEP TITATIVE HCG NORMAL RANGES Weeks of Gestation (Weeks Since LMP) 3 Weeks (5.8-71.2 mIU/mL) 4 Weeks (9.5-750 mIU/mL) 5 Weeks (217-7138 mIU/mL) 6 Weeks (158-57319 mIU/mL) 7 Weeks (3697-488928 mIU/mL) 8 Weeks (03166-554927 mIU/mL) 9 Weeks (52967-636166 mIU/mL) 10 Weeks (29357-533067 mIU/mL) 12 Weeks (73387-353389 mIU/mL) Referenced to 4th IS of NIBS Performed By: #### 2 1198-7 #### [facility] CLIA [id number] [address] [place] [address] [place] B-HCG SerPl-aCncon 4 HCG.beta subunit Qn 2128.0 m[IU]/mL High <5.0 [facility] Comment on above: Order Comment: Teodora sanderson Type: BLOOD SPECIMEN Ordering Facility: [facility] Address: [address] [place] [address] Result Comment: HARDEEP TITATIVE HCG NORMAL RANGES Weeks of Gestation (Weeks Since LMP) 3 Weeks (5.8-71.2 mIU/mL) 4 Weeks (9.5-750 mIU/mL) 5 Weeks (217-7138 mIU/mL) 6 Weeks (158-18268 mIU/mL) 7 Weeks (3697-252542 mIU/mL) 8 Weeks (89704-472167 mIU/mL) 9 Weeks (74022-673059 mIU/mL) 10 Weeks (40348-621297 mIU/mL) 12 Weeks (48336-667644 mIU/mL) Referenced to 4th IS of NIBSC Performed By: #### 2 1198-7 #### [facility] CLIA [id number] [address] [place] [address] [facility] Rox 12-12-2023 CNPN Telephone (OBGYWM) RICHARD SMITH ([id number]) 1995 F Date Time Provider Department 12/12/23 ELKIN MARTINEZ OBCARLOSWMoisés During your visit today, we recorded the following information about you: Allergies As of Date: 12/12/2023 Noted Allergy Reaction IMITREX (SUMATRIPTAN) 11/16/2010 14 - Other: See Comments Comments: Patient stated her jaw locked up and hurt really bad Date Reviewed: 12/07/2023 Reviewed by: Elkin Martinez APRN.DESTATICIZER FEEDER - Fully Assessed Reason for Visit: Thyroid [...] Encounter Status:Closed by ELKIN [facility]Z [facility]23 [facility] SM[facility] ([id number]) 1995 F Date Time Provider Department 12/12/23 MARIANA HILARIO During your visit today, we recorded the following information about you: Madalyn Copeland RDMS 12/12/2023 7:37 AM Signed May we please have Bilateral Diagnostic Mammogram orders placed per [facility] Breast imaging protocol. 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beta subunit Qn 1021.0 m[IU]/mL High <5.0 [facility] Comment on above: Order Comment: Speci men Type: BLOOD SPECIMEN Ordering Facility: [facility] Address: [address] [place] [address] Result Comment: HARDEEP TITATIVE HCG NORMAL RANGES Weeks of Gestation (Weeks Since LMP) 3 Weeks (5.8-71.2 mIU/mL) 4 Weeks (9.5-750 mIU/mL) 5 Weeks (217-7138 mIU/mL) 6 Weeks (158-34237 mIU/mL) 7 Weeks (3697-660536 mIU/mL) 8 Weeks (50919-941995 mIU/mL) 9 Weeks (87827-700460 mIU/mL) 10 Weeks (16198-824549 mIU/mL) 12 Weeks (60630-818594 mIU/mL) Referenced to 4th IS of [facility] Performed By: #### 2 1198-7 #### [facility] CLIA [id number] [address] [place] [address]187 [facility] Rox 12-10-2023 CNPN Telephone (OBGYWM) RICHARD SMITH ([id number]) 1995 F Date Time Provider Department 12/10/23 [...] drawn. Patient has a lab appointment in [place] today at 10:00 AM (which was supposed to be her second quant). Patient is anxious about having a possible missed AB. Advised that we should have that result today. Transferred to schedule with endo. HAYDEN James Emily, APRN.CNP 12/10/2023 8:59 AM Signed Can have T4 drawn with [place] appt today if they can't add it on NOEMY Junior Jennifer, RN 12/10/2023 2:02 PM Signed hCG Quantitative, Blood Date Value 12/10/2023 1,021.0 mIU/mL Leave phone note open for 12/11 HCG. Jenise Walker RN 12/12/2023 3:47 PM Signed hCG Quantitative, Blood Date Value 12/12/2023 2,128.0 mIU/mL 12/10/2023 1,021.0 mIU/mL Provider notified patient in a mySkin message. Jenise Walker RN Allergies As of [...] [Z3A.01] Order(s):CONSULT TO ENDOCRINOLOGY [9007] Order #: [id number]: 1 FUTURE T4 FREE/FREE THYROXINE [SQFT4] Order #: [id number] FUTURE Prescriptions as of 12/12/2023 - aspirin, [...] 06/16/2020 Gastroesophageal reflux disease [K21.9] 11/03/2019 12/07/2023 JOJRE (generalized anxiety disorder) [F41.1] 11/25/2019 12/07/2023 COVID-19 [...] Status:Closed by JENISE WALKER on 12/12/23 Normal [facility] Free T4 [Mass/Vol]on Interpretation and review of laboratory results Normal [facility] T4 FREE/FREE THYROXINEon Free T4 [Mass/Vol] 0.9 ng/dL 0.9 - 1.7 ng/dL [facility] T4 Free SerPl-mCncon Free T4 [Mass/Vol] 0.9 ng/dL Normal 0.9-1.7 [facility] Comment on above: Order Comment: Speci men Type: BLOOD SPECIMEN Ordering Facility: [facility] Address: [address] [place] [address] Performed By: #### 3 024-7 #### [facility] CLIA [id number] [address] [place] [address] [place] Bacteria Ur Culton Bacteria identified Cx Nom (U) ORGANISM ID: 1 10,000 -<50,000 CFU/ml Normal urogenital osvaldo Normal [facility] Comment on above: Performed By: #### 6 30-4 ####[facility] LAB[facility] [id number] [place] [address] [place] C. trachomatis+N. gonorrhoea e DNA MARK ANTHONY+probe Ql (Unsp spec)on 12-07-2023 C. trachomatis rRNA MARK ANTHONY+probe Ql (Unsp spec) Negative Normal Negative for Chlamydia trachomatis by amplificaton [facility] Comment on above: Order Comment: Speci men Type: SWABOrdering Facility: [facility] Address: [address] [place] [address] Performed By: #### 3 6902-5 ####[facility] [id number] [place] [address] [place] N. gonorrhoeae rRNA MARK ANTHONY+probe Ql (Unsp spec) Negative Normal Negative for Neisseria gonorrhoeae by amplification [facility] Comment on above: Order Comment: Speci men Type: SWABOrdering Facility: [facility] Address: [address] [place] [address] Performed By: #### 3 6902-5 ####[facility] [id number] [place] [address] [place] CARRIER SCREEN, STANDARDon 1 02-05-2023 CARRIER SCREEN RESULTS View results in Scanned Documents link when available. Normal [facility] Comment on above: Order Comment: Speci men Type: BLOOD SPECIMENOrdering Facility: [facility] Address: [address] [place] [address] Performed By: #### C RRSCN ####[facility] [id number] [place] [address] CBC W Auto Differential pane l (Bld)on 12-07-2023 Basophils (Bld) [#/Vol] 0.08 10*3/uL Normal <0.11 [facility] Comment on above: Order Comment: Speci men Type: URINE SPECIMEN Ordering Facility: [facility] Address: [address] [place] [address] Performed By: #### 2 890-2 #### [facility] CLIA [id number] [address] [place] [address] [place] Basophils/100 WBC (Bld) 0.7 % Normal [facility] Comment on above: Order Comment: Speci men Type: URINE SPECIMEN Ordering Facility: [facility] Address: [address] [place] [address] Performed By: #### 2 890-2 #### [facility] CLIA [id number] [address] [place] [address] [place] Differential cell count method Nom (Bld) Auto Normal [facility] Comment on above: Order Comment: Speci men Type: URINE SPECIMEN Ordering Facility: [facility] Address: [address] [place] [address] Performed By: #### 2 890-2 #### [facility] CLIA [id number] [address] [place] [address] [place] Eosinophils (Bld) [#/Vol] 0.53 10*3/uL High <0.46 [facility] Comment on above: Order Comment: Speci men Type: URINE SPECIMEN Ordering Facility: [facility] Address: [address] [place] [address] Performed By: #### 2 890-2 #### [facility] CLIA [id number] [address] [place] [address] [place] Eosinophils/100 WBC (Bld) 4.4 % Normal [facility] Comment on above: Order Comment: Speci men Type: URINE SPECIMEN Ordering Facility: [facility] Address: [address] [place] [address] Performed By: #### 2 890-2 #### [facility] CLIA [id number] [address] [place] [address] [place] Erythrocyte distribution width (RBC) [Ratio] 12.5 % Normal 11.5-15.0 [facility] Comment on above: Order Comment: Speci men Type: URINE SPECIMEN Ordering Facility: [facility] Address: [address] [place] [address] Performed By: #### 2 890-2 #### [facility] CLIA [id number] [address] [place] [address] [place] Hematocrit (Bld) [Volume fraction] 39.8 % Normal 36.0-46.0 [facility] Comment on above: Order Comment: Speci men Type: URINE SPECIMEN Ordering Facility: [facility] Address: [address] [place] [address] Performed By: #### 2 890-2 #### [facility] CLIA [id number] [address] [place] [address] [place] Hemoglobin (Bld) [Mass/Vol] 13.6 g/dL Normal 11.5-15.5 [facility] Comment on above: Order Comment: Speci men Type: URINE SPECIMEN Ordering Facility: [facility] Address: [address] [place] [address] Performed By: #### 2 890-2 #### [facility] CLIA [id number] [address] [place] [address] [place] Immature granulocytes (Bld) [#/Vol] 0.06 10*3/uL Normal <0.10 [facility] Comment on above: Order Comment: Speci men Type: URINE SPECIMEN Ordering Facility: [facility] Address: [address] [place] [address] Performed By: #### 2 890-2 #### [facility] CLIA [id number] [address] [place] [address] [place] Immature granulocytes/100 WBC (Bld) 0.5 % Normal [facility] Comment on above: Order Comment: Speci men Type: URINE SPECIMEN Ordering Facility: [facility] Address: [address] [place] [address] Performed By: #### 2 890-2 #### [facility] CLIA [id number] [address] [place] [address] [place] Lymphocytes (Bld) [#/Vol] 3.86 10*3/uL Normal 1.00-4.00 [facility] Comment on above: Order Comment: Speci men Type: URINE SPECIMEN Ordering Facility: [facility] Address: [address] [place] [address] Performed By: #### 2 890-2 #### [facility] CLIA [id number] [address] [place] [address] [place] Lymphocytes/100 WBC (Bld) 31.9 % Normal [facility] Comment on above: Order Comment: Speci men Type: URINE SPECIMEN Ordering Facility: [facility] Address: [address] [place] [address] Performed By: #### 2 890-2 #### [facility] CLIA [id number] [address] [place] [address] [place] MCH (RBC) [Entitic mass] 29.7 pg Normal 26.0-34.0 [facility] Comment on above: Order Comment: Speci men Type: URINE SPECIMEN Ordering Facility: [facility] Address: [address] [place] [address] Performed By: #### 2 890-2 #### [facility] CLIA [id number] [address] [place] [address] [place] MCHC (RBC) [Mass/Vol] 34.2 g/dL Normal 30.5-36.[address] [facility] Comment on above: Order Comment: Speci men Type: URINE SPECIMEN Ordering Facility: [facility] Address: [address] [place] [address] Performed By: #### 2 890-2 #### [facility] CLIA [id number] [address] [place] [address] [place] MCV (RBC) [Entitic vol] 86.9 fL Normal 80.0-100.0 [facility] Comment on above: Order Comment: Speci men Type: URINE SPECIMEN Ordering Facility: [facility] Address: [address] [place] [address] Performed By: #### 2 890-2 #### [facility] CLIA [id number] [address] [place] [address] [place] Monocytes (Bld) [#/Vol] 0.74 10*3/uL Normal <0.87 [facility] Comment on above: Order Comment: Speci men Type: URINE SPECIMEN Ordering Facility: [facility] Address: [address] [place] [address] Performed By: #### 2 890-2 #### [facility] CLIA [id number] [address] [place] [address] [place] Monocytes/100 WBC (Bld) 6.1 % Normal [facility] Comment on above: Order Comment: Speci men Type: URINE SPECIMEN Ordering Facility: [facility] Address: [address] [place] [address] Performed By: #### 2 890-2 #### [facility] CLIA [id number] [address] [place] [address] [place] Neutrophils (Bld) [#/Vol] 6.84 10*3/uL Normal 1.45-7.50 [facility] Comment on above: Order Comment: Speci men Type: URINE SPECIMEN Ordering Facility: [facility] Address: [address] [place] [address] Performed By: #### 2 890-2 #### [facility] CLIA [id number] [address] [place] [address] [place] Neutrophils/100 WBC (Bld) 56.4 % Normal [facility] Comment on above: Order Comment: Speci men Type: URINE SPECIMEN Ordering Facility: [facility] Address: [address] [place] [address] Performed By: #### 2 890-2 #### [facility] CLIA [id number] [address] [place] [address] [place] Nucleated RBC (Bld) [#/Vol] 10*3/uL Normal <0.01 [facility] Comment on above: Order Comment: Speci men Type: URINE SPECIMEN Ordering Facility: [facility] Address: [address] [place] [address] Performed By: #### 2 890-2 #### [facility] CLIA [id number] [address] [place] [address] [place] Nucleated RBC/100 WBC (Bld) [Ratio] 0.0 /100 WBC Normal [facility] Comment on above: Order Comment: Speci men Type: URINE SPECIMEN Ordering Facility: [facility] Address: [address] [place] [address] Performed By: #### 2 890-2 #### [facility] CLIA [id number] [address] [place] [address] [place] Platelet mean volume (Bld) [Entitic vol] 10.6 fL Normal 9.0-12.7 [facility] Comment on above: Order Comment: Speci men Type: URINE SPECIMEN Ordering Facility: [facility] Address: [address] [place] [address] Performed By: #### 2 890-2 #### [facility] CLIA [id number] [address] [place] [address] [place] Platelets (Bld) [#/Vol] 260 10*3/uL Normal 150-400 [facility] Comment on above: Order Comment: Speci men Type: URINE SPECIMEN Ordering Facility: [facility] Address: [address] [place] [address] Performed By: #### 2 890-2 #### [facility] CLIA [id number] [address] [place] [address] [place] RBC (Bld) [#/Vol] 4.58 10*6/uL Normal 3.90-5.20 [facility] Comment on above: Order Comment: Speci men Type: URINE SPECIMEN Ordering Facility: [facility] Address: [address] [place] [address] Performed By: #### 2 890-2 #### [facility] CLIA [id number] [address] [place] [address] [place] WBC (Bld) [#/Vol] 12.11 10*3/uL High 3.70-11.[address] [facility] Comment on above: Order Comment: Speci men Type: URINE SPECIMEN Ordering Facility: [facility] Address: [address] [place] [address] Performed By: #### 2 890-2 #### [facility] CLIA [id number] [address] [place] [address] [place] Comprehensive metabolic 2000 panelOrdered By: Annita Lewis on 12-07-2023 Albumin [Mass/Vol] 4.1 g/dL 3.9 - 4.9 g/dL [facility] ALP [Catalytic activity/Vol] 87 U/L 34 - 123 U/L [facility] ALT [Catalytic activity/Vol] 10 U/L 7 - 38 U/L [facility] Anion gap [Moles/Vol] 11 mmol/L 8 - 15 mmol/L [facility] AST [Catalytic activity/Vol] 11 U/L Low 13 - 35 U/L [facility] Bilirubin [Mass/Vol] 0.2 mg/dL 0.2 - 1 .3 mg/dL [facility] Calcium [Mass/Vol] 9.0 mg/dL 8.5 - 10. 2 mg/dL [facility] Chloride [Moles/Vol] 104 mmol/L 98 - 10 7 mmol/L [facility] CO2 [Moles/Vol] 22 mmol/L 22 - 30 mmol/L [facility] Creatinine [Mass/Vol] 0.79 mg/dL 0.58 - 0.96 mg/dL [facility] GFR/1.73 sq M.predicted among non-blacks MDRD (S/P/Bld) [Vol rate/Area] 103 mL/min/{1.73_m2} - PINF [facility] Comment on above: Estimated Glomerular [...] [Mass/Vol] 98 mg/dL 74 - 99 mg/dL [facility] Comment on above: The [place] Diabete s Association (ADA) provides guidance for [...] Standards of Medical Care in Diabetes 2016, [place] [employer]. Diabetes Care. 2016.39(Suppl 1). Interpretation and review of laboratory results Abnormal [facility] Potassium [Moles/Vol] 3.8 mmol/L 3.7 - 5.1 mmol/L [facility] Protein [Mass/Vol] 6.9 g/dL 6.3 - 8.0 g/dL [facility] Sodium [Moles/Vol] 137 mmol/L 136 - 144 mmol/L [facility] Urea nitrogen [Mass/Vol] 13 mg/dL 7 - 21 mg/dL [facility] Comprehensive metabolic 2000 panelon 12-07-2023 Albumin [Mass/Vol] 4.1 g/dL Normal 3.9-4.9 [facility] Comment on above: Order Comment: Speci men Type: BLOOD SPECIMENOrdering Facility: [facility] Address: [address] [place] [address] Performed By: #### 2 4323-8 ####[facility] SYLVIACLEVELAND CLINIC MERCY HOSPITALSegundo [id number] [place] [address] [place] ALP [Catalytic activity/Vol] 87 U/L Normal 34-123 [facility] Comment on above: Order Comment: Speci men Type: BLOOD SPECIMENOrdering Facility: [facility] Address: [address] [place] [address] Performed By: #### 2 4323-8 ####[facility]CLIA [id number] [place] [address] [place] ALT [Catalytic activity/Vol] 10 U/L Normal 7-38 [facility] Comment on above: Order Comment: Speci men Type: BLOOD SPECIMENOrdering Facility: [facility] Address: [address] [place] [address] Performed By: #### 2 4323-8 ####[facility] PETERSBURGNCLIA [id number] [place] [address] [place] Anion gap [Moles/Vol] 11 mmol/L Normal 8-[address] [facility] Comment on above: Order Comment: Speci men Type: BLOOD SPECIMENOrdering Facility: [facility] Address: [address] [place] [address] Performed By: #### 2 4323-8 ####[facility] [id number] [place] [address] [place] AST [Catalytic activity/Vol] 11 U/L Low 13-35 [facility] Comment on above: Order Comment: Speci men Type: BLOOD SPECIMENOrdering Facility: [facility] Address: [address] [place] [id number] Performed By: #### 2 4323-8 ####[facility] [id number] [place] [address] [place] Bilirubin [Mass/Vol] 0.2 mg/dL Normal 0.2-1.[address] [facility] Comment on above: Order Comment: Speci men Type: BLOOD SPECIMENOrdering Facility: [facility] Address: [address] [place] [address] Performed By: #### 2 4323-8 ####[facility] SYLVIA MILLTOWNCLIA [id number] [place] [address] [place] Calcium [Mass/Vol] 9.0 mg/dL Normal 8.5-10.2 [facility] Comment on above: Order Comment: Speci men Type: BLOOD SPECIMENOrdering Facility: [facility] Address: [address] [place] [address] Performed By: #### 2 4323-8 ####[facility] MILLTOWNCLIA [id number] [place] [address] [place] Chloride [Moles/Vol] 104 mmol/L Normal 98-[address] [facility] Comment on above: Order Comment: Speci men Type: BLOOD SPECIMENOrdering Facility: [facility] Address: [address] [place] [address] Performed By: #### 2 4323-8 ####[facility] MILLWOODYWNCLIA [id number] [place] [address] [place] CO2 [Moles/Vol] 22 mmol/L Normal 22-30 [facility] Comment on above: Order Comment: Speci men Type: BLOOD SPECIMENOrdering Facility: [facility] Address: [address] [place] [address] Performed By: #### 2 4323-8 ####[facility] MILLTOWNCLIA [id number] [place] [address] [place] Creatinine [Mass/Vol] 0.79 mg/dL Normal 0.58-0.[address] [facility] Comment on above: Order Comment: Speci men Type: BLOOD SPECIMENOrdering Facility: [facility] Address: [address] [place] [address] Performed By: #### 2 4323-8 ####[facility] [id number] [place] [address] [place] Creatinine and Glomerular filtration rate.predicted panel (S/P/Bld) 103 mL/min/1.73m??? Normal >=60 [facility] Comment on above: Order Comment: Teodora sanderson Type: BLOOD SPECIMENOrdering Facility: [facility] Address: [address] [place] [address] Result Comment: Tanya mated Glomerular Filtration Rate [...] actual GFR. Performed By: #### 2 4323-8 ####[facility] [id number] [place] [address] [place] Glucose [Mass/Vol] 98 mg/dL Normal 74-99 [facility] Comment on above: Order Comment: Teodora sanderson Type: BLOOD SPECIMENOrdering Facility: [facility] Address: [address] [place] [address] Result Comment: The [place] Diabetes Association (ADA) provides guidance for cutoff [...] Standards of Medical Care in Diabetes 2016, [place] Diabetes Association. Diabetes Care. 2016.39(Suppl 1). Performed By: #### 2 4323-8 ####[facility] [id number] [place] [address] [place] Potassium [Moles/Vol] 3.8 mmol/L Normal 3.7-5.[address] [facility] Comment on above: Order Comment: Speci men Type: BLOOD SPECIMENOrdering Facility: [facility] Address: [address] [place] [address] Performed By: #### 2 4323-8 ####[facility]CL[facility] [id number] [place] [address] [place] Protein [Mass/Vol] 6.9 g/dL Normal 6.3-8.0 [facility] Comment on above: Order Comment: Speci men Type: BLOOD SPECIMENOrdering Facility: [facility] Address: [address] [place] [address] Performed By: #### 2 4323-8 ####[facility] [id number] [place] [address] [place] Sodium [Moles/Vol] 137 mmol/L Normal 136-144 [facility] Comment on above: Order Comment: Speci men Type: BLOOD SPECIMENOrdering Facility: [facility] Address: [address] [place] [address] Performed By: #### 2 4323-8 ####[facility] [id number] [place] [address] [place] Urea nitrogen [Mass/Vol] 13 mg/dL Normal 7-21 [facility] Comment on above: Order Comment: Speci men Type: BLOOD SPECIMENOrdering Facility: [facility] Address: [address] [place] [address] Performed By: #### 2 4323-8 ####[facility] [id number] [place] [address] [place] HBV surface Ag Ser Qlon 11-0 HBV surface Ag Ql (S) Negative Normal Negative [facility] Comment on above: Order Comment: Speci men Type: BLOOD SPECIMENOrdering Facility: [facility] Address: [address] [place] [address] Performed By: #### 3 1201-7, 5-3, 74849-0 ####[facility] LABCLIA [id number] [place] [address] [place] HCV Ab Ser Qlon 12-07-2023 HCV Ab Ql (S) Negative Normal Negative [facility] Comment on above: Order Comment: Speci men Type: BLOOD SPECIMENOrdering Facility: [facility] Address: [address] [place] [address] Result Comment: The result suggests no evidence of active infection with Hepatitis C virus. Should recent infection be suspected, repeat testing may be considered 4-6 weeks after this draw. Performed By: #### 1 6128-1 ####[facility] LABCLIA [id number] [place] [address] [place] HIV 1+2 Ab IA Qlon 4 HIV 1 and 2 Ab IA.rapid Nom (S/P/Bld) Normal [facility] Comment on above: Order Comment: Speci men Type: BLOOD SPECIMENOrdering Facility: [facility] Address: [address] [place] [address] Result Comment: Test not indicated. Performed By: #### 3 1201-7, 5195-3, 50260-9 ####[facility] LABCLIA [id number] [place] [address] [place] HIV 1+2 Ab+HIV1 p24 Ag IA Ql Non-Reactive Normal Nonreactive [facility] Comment on above: Order Comment: Speci men Type: BLOOD SPECIMENOrdering Facility: [facility] Address: [address] [place] [address] Performed By: #### 3 1201-7, 5195-3, 08031-7 ####[facility] LABCLIA [id number] [place] [address] [place] HIV immunoassay testing algorithm interpretation (S/P/Bld) [Interp] Normal [facility] Comment on above: Order Comment: Speci men Type: BLOOD SPECIMENOrdering Facility: [facility] Address: [address] [place] [address] Result Comment: No e vidence of HIV-1 or HIV-2 infection. Should recent infection be suspected, repeat testing may be considered 2-3 weeks after this draw. Pratt Rev. Code 3701.243(E): This information has been [...] diagnoses. Performed By: #### 3 1201-7, 5195-3, 54187-8 ####[facility] LABCLIA [id number] [place] [address] [place] HbA1c (Bld)on 12-07-2023 Average glucose Estimated from glycated hemoglobin (Bld) [Mass/Vol] 91 mg/dL Normal [facility] Comment on above: Order Comment: Macki men Type: BLOOD SPECIMENOrdering Facility: [facility] Address: [address] [place] [address] Result Comment: eAG: (Estimated average glucose) is a calculated value from HgbA1c and is ambulatory services representative of the average blood glucose level in the last 2-3 month period. Performed By: #### 5 5454-3 ####[facility] LABCLIA [id number] [place] [address] [place] HbA1c (Bld) [Mass fraction] 4.8 % Normal 4.3-5.6 [facility] Comment on above: Order Comment: Teodora sanderson Type: BLOOD SPECIMENOrdering Facility: [facility] Address: [address] [place] [address] Result Comment: Amer [place] Diabetes Association guidelines indicate that patients with HgbA1c in the range 5.7-6.4% are at increased risk for development of diabetes, and intervention by lifestyle modification may be beneficial. HgbA1c greater or equal to 6.5% is considered diagnostic of diabetes. Performed By: #### 5 5454-3 ####[facility] LABCLIA [id number] [facility] [id number] [address] [place] POC FURNITURE CLEANER ULTRASOUNDon 12-07-19 24 Indication Viability; confirm cardiac [...] Read By: Elkin Martinez NP MATERNAL MEDICINE [facility] Radiology Study observation (narrative) [facility] Prot/Creat Uron 12-07-2023 Protein/Creatinine (U) [Mass ratio] 0.05 mg/mg Normal <0.15 [facility] Comment on above: Order Comment: Speci men Type: URINE SPECIMEN [facility] Address: [address] [place] [address] Result Comment: Adul t Proteinuria Categories: <0.15 mg/mg is considered normal to mildly increased 0.15 - 0.50 mg/mg is considered moderately increased >0.50 mg/mg is considered severely increased KDIGO. (2013). KDIGO 2012 Clinical Practice Guideline for the Evaluation and Management of Chronic Kidney Disease. Official Journal of the International Society of Nephrology, 3(1), 1-150. Performed By: #### 2 890-2 #### [facility] CLIA [id number] [address] [place] [address] [place] Protein/Creatinine (U) [Mass ratio]on 12-07-2023 Creatinine (U) [Mass/Vol] 161.9 mg/dL Normal 20.0-300.0 [facility] Comment on above: Order Comment: Speci men Type: URINE SPECIMEN [facility] Address: [address] [place] [address] Performed By: #### 2 890-2 #### [facility] CLIA [id number] [address] [place] [address] [place] Protein (U) [Mass/Vol] 8 mg/dL Normal 0-20 [facility] Comment on above: Order Comment: Speci men Type: URINE SPECIMEN [facility] Address: [address] [place] [address] Performed By: #### 2 890-2 #### [facility] CLIA [id number] [address] [place] [address] [place] RUBELLA IGG ANTIBODYon 12-06 RUBELLA IGG AB, QUAL Equivocal Abnormal Positive [facility] Comment on above: Order Comment: Speci men Type: BLOOD SPECIMENOrdering Facility: [facility] Address: [address] [place] [address] Result Comment: The result suggests no history of Rubella vaccination or exposure to Rubella virus, however, some individuals with past history of Rubella vaccination may test negative using this test as immunity to Rubella virus wanes over time after vaccination. Please correlate with vaccination history if applicable. Performed By: #### R UBIGG ####[facility] LABCLIA [id number] [place] [address] [place] Reagin and Treponema pallidu m IgG and IgM [Interp]on 12-07-2023 T. pallidum IgG+IgM IA Ql (S) Non-Reactive Normal Nonreactive [facility] Comment on above: Order Comment: Teodora sanderson Type: BLOOD SPECIMENOrdering Facility: [facility] Address: [address] [place] [address] Performed By: #### 3 1201-7, 5195-3, 19437-6 ####[facility] LABCLIA [id number] [place] [id number] [place] Reagin+T pallidum IgG+IgM Se rPl-Impon 12-07-2023 Reagin and Treponema pallidum IgG and IgM [Interp] Cannot exclude recent Treponemal infection if specimen collected within 7-10 days after appearance of suspect lesions or 2-3 weeks after an exposure. Clinical correlation is required. Normal [facility] Comment on above: Order Comment: Teodora sanderson Type: BLOOD SPECIMENOrdering Facility: [facility] Address: [address] [place] [address] Performed By: #### 3 1201-7, 5195-3, 09573-9 ####[facility] LABCLIA [id number] [place] [id number] [place] TSH SerPl-aCncon 12-07-2023 TSH Qn 6.120 m[IU]/L High 0.270-4.200 [facility] Comment on above: Order Comment: Teodora sanderson Type: BLOOD SPECIMENOrdering Facility: [facility] Address: [address] [place] [address] Result Comment: If t he patient is , TSH reference range varies by gestational period: First Trimester (weeks 9-12): 0.180-2.990 mIU/L Second Trimester: 0.110-3.980 mIU/L Third Trimester: 0.480-4.710 mIU/L Loki Montero et al. A Practical Approach for the Verifications and Determination of Site- and Trimester-Specific Reference Intervals for Thyroid Function tests in . Thyroid, 2019:29:3:412-420. Clifford Lock, et al. 2017 Guidelines of the [place] Thyroid Association for the Diagnosis and Management of Thyroid Disease during and the . Thyroid, 2017:27:3:315-389. Performed By: #### 3 016-3 ####[facility] LABCLIA [id number] [place] [address] [place] TYPE + SCREEN PRENATALon ABO A Normal [facility] Comment on above: Order Comment: Speci men Type: URINE SPECIMEN [facility] Address: [address] [place] [address] Performed By: #### 2 890-2 #### [facility] CLIA [id number] [address] [place] [address] [place] Rh Nom (Bld) Positive Normal [facility] Comment on above: Order Comment: Speci men Type: URINE SPECIMEN [facility] Address: [address] [place] [address] Performed By: #### 2 890-2 #### [facility] CLIA [id number] [address] [place] [address] [place] TYPE AND SCREEN EXPIRATION 12/10/2023 23:59 Normal [facility] Comment on above: Order Comment: Speci men Type: URINE SPECIMEN [facility] Address: [address] [place] [address] Performed By: #### 2 890-2 #### [facility] CLIA [id number] [address] [place] [address] [place] CNPChiquita 12-04-2023 CNPN Telephone (GURMEETGY) RICHARD SMITH ([id number]) 1995 F Date Time Provider Department 12/04/23 [...] Status:Closed by JENISE WALKER on 12/04/23 Normal [facility] BACTERIAL VAGINOSIS NAATon 1 Lactobacillus crispatus+gasseri+mary senii + Gardnerella vaginalis + Atopobium vaginae rRNA MARK ANTHONY+probe Ql (Vag fld) Negative Normal Negative for bacterial vaginosis [facility] Comment on above: Order Comment: Speci men Type: SWABOrdering Facility: [facility] Address: [address] [place] [address] Performed By: #### C VTV, BVAMP ####[facility] LABCLIA [id number] [facility] [id number] [address] [place] DARYA/TRICHOMONAS NAATon 1 C. glabrata RNA MARK ANTHONY+probe Ql (Vag fld) Negative Normal Negative for Darya glabrata [facility] Comment on above: Order Comment: Speci men Type: SWABOrdering Facility: [facility] Address: [address] [place] [address] Performed By: #### C VTV, BVAMP ####[facility] LABCLIA [id number] [place] [address] [place] Darya sp DNA MARK ANTHONY+probe Ql (Vag fld) Positive Abnormal Negative for Darya species [facility] Comment on above: Order Comment: Speci men Type: SWABOrdering Facility: [facility] Address: [address] [place] [address] Performed By: #### C VTV, BVAMP ####[facility] LABCLIA [id number] [place] [address] [place] T. vaginalis DNA MARK ANTHONY+probe Ql (Unsp spec) Negative Normal Negative for Trichomonas vaginalis by amplification [facility] Comment on above: Order Comment: Speci men Type: SWABOrdering Facility: [facility] Address: [address] [place] [address] Performed By: #### C VTV, BVAMP ####[facility] LABCLIA [id number] [place] [address] [place] CNOVon 11-23-2023 CNOV Office Visit (OBGYWM ) RICHARD SMITH ([id number]) 1995 F Date Time Provider Department 11/23/23 10:45 AM MARIANA HILARIO OBGYWM During your visit today, we recorded the following information about you: Blood pressure Weight Last Period 114/76 87.5 kg 10/18/23 Mariana Hilario APRN.CNM 11/23/2023 12:05 PM Signed Vice President Integrated offered: Patient declinesPatrick Curiel is a 28 [...] L1 SAB0 IAB0 Ectopic0 Multiple0 Live Births1 [employer] 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 As applicable, any other physician, advance practice provider, medical student, or other health professional student that will be observing or involved in the sensitive examination for educational or training purposes was discussed with the Patient or Authorized [employer]. The Patient or Authorized [employer] has agreed to proceed with the sensitive [...] external genitalia normal, normal Bartholin's glands, urethra, Vance's glands, no vulvar lesions, no cervical lesions, [...] - DARYA/TRI (more content not included)... Normal [facility] HIGH RISK HUMAN PAPILLOMA RADHA (HPV), PCR FOR DETECTION AND GENOTYPINGon 11-23-2023 HPV 16 Ag Ql (Unsp spec) Not detected Normal Not detected [facility] Comment on above: Order Comment: Speci men Type: URINE SPECIMEN [facility] Address: [address] [place] [address] Performed By: #### 2 890-2 #### [facility] CLIA [id number] [address] [place] [address] [place] HPV 18 Ag Ql (Unsp spec) Not detected Normal Not detected [facility] Comment on above: Order Comment: Speci men Type: URINE SPECIMEN [facility] Address: [address] [place] [address] Performed By: #### 2 890-2 #### [facility] CLIA [id number] [address] [place] [address] [place] HPV 31+33+35+39+45+51+52+ 56+58+59+66+68 DNA MARK ANTHONY+probe Ql (Cvx) Not detected Normal Not detected [facility] Comment on above: Order Comment: Speci men Type: URINE SPECIMEN [facility] Address: [address] [place] [address] Result Comment: High Risk HPV Other Type includes HPV types 31, 33, 35, 39, 45, 51, 52, 56, 58, 59, 66 and 68. Performed By: #### 2 890-2 #### [facility] CLIA [id number] [address] [place] [address] [place] PAP TESTon 11-23-2023 ADEQUACY Satisfactory for interpretation. Normal [facility] Comment on above: Order Comment: Speci men Type: URINE SPECIMEN [facility] Address: [address] [place] [address] Performed By: #### 2 890-2 #### [facility] CLIA [id number] [address] [place] [address] [place] CASE REPORT Normal [facility] Comment on above: Order Comment: Speci men Type: URINE SPECIMEN [facility] Address: [address] [place] [address] Result Comment: Gyne cologic Cytology Report Case: [id number] Authorizing Provider: Mariana Hilario APRN.CNM Collected: 11/23/2023 11:57 AM Ordering Location: OB/Gynecology Received: 11/23/2023 04:38 PM First Screen: Santi Solomon, CT, ASCP Specimen: Pap Test, ThinPrep, Cervix Performed By: #### 2 890-2 #### [facility] CLIA [id number] [address] [place] [address] [place] CLINICAL HISTORY, CYTOLOGY, ORDER ENTRY REPRESENTATIVE Routine Exam Normal [facility] Comment on above: Order Comment: Speci men Type: URINE SPECIMEN [facility] Address: [address] [place] [address] Performed By: #### 2 890-2 #### [facility] CLIA [id number] [address] [place] [address] [place] FINAL PERFORMING LAB Normal [facility] Comment on above: Order Comment: Speci men Type: URINE SPECIMEN [facility] Address: [address] [place] [address] Result Comment: Tech nical component, vertical roll operator screening performed at [facility], [address] [place], [place] [id number] CLIA# [id number] Diagnostic interpretation performed at [facility], [address] [place] [address] [place] [address] CLIA# [id number] Vat Skimmer: Pancho Coles M.D. Performed By: #### 2 890-2 #### [facility] CLIA [id number] [address] [place], [place] [address] [place] HPV REFLEX Yes HPV Normal [facility] Comment on above: Order Comment: Speci men Type: URINE SPECIMEN [facility] Address: [address] [place] [address] Performed By: #### 2 890-2 #### [facility] CLIA [id number] [address] [id number] [address] [place] INTERPRETATION, CYTOLOGY, ORDER ENTRY REPRESENTATIVE Normal [facility] Comment on above: Order Comment: Speci men Type: URINE SPECIMEN [facility] Address: [address] [place] [address] Result Comment: Nega tive for intraepithelial lesion or malignancy. Performed By: #### 2 890-2 #### [facility] CLIA [id number] [address] [place] [address] [place] LMP 10/18/2023 Normal [facility] Comment on above: Order Comment: Speci men Type: URINE SPECIMEN [facility] Address: [address] [place] [address] Performed By: #### 2 890-2 #### [facility] CLIA [id number] [address] [place] [address] [place] PAP DISCLAIMER COMMENT The Pap Smear is a screening test for cervical cancer. False negative results occur with all screening tests, emphasizing the need for rescreening at recommended intervals, and clinical correlation. Normal [facility] Comment on above: Order Comment: Speci men Type: URINE SPECIMEN [facility] Address: [address] [place] [address] Performed By: #### 2 890-2 #### [facility] CLIA [id number] [address] [place] [address] [place] PAP LIFE SCIENCES MANAGER COMMENT This specimen has be en analyzed by the ThinPrep Imaging System, an automated imaging and review system, which assists the laboratory in evaluating cells on ThinPrep Pap tests. Following automated imaging, selected fox from every slide are reviewed by a vertical roll operator. Normal [facility] Comment on above: Order Comment: Speci men Type: URINE SPECIMEN [facility] Address: [address] [place] [address] Performed By: #### 2 890-2 #### [facility] CLIA [id number] [address] [place] [address] [place] INFLUENZA A&B MOLECULAR (POC )on 04-16-2023 Flu A (POCT) Positive Abnormal Negative [facility] Procedural Control Valid [facility] Comprehensive metabolic 2000 panelon 01-11-2022 Albumin [Mass/Vol] 4.3 g/dL 3.9 - 4.9 g/dL [facility] ALP [Catalytic activity/Vol] 87 U/L 34 - 123 U/L [facility] ALT [Catalytic activity/Vol] 32 U/L 7 - 38 U/L [facility] Anion gap [Moles/Vol] 14 mmol/L 9 - 18 mmol/L [facility] AST [Catalytic activity/Vol] 22 U/L 13 - 35 U/L [facility] Bilirubin [Mass/Vol] 0.3 mg/dL 0.2 - 1 .3 mg/dL [facility] Calcium [Mass/Vol] 8.3 mg/dL Low 8.5 - 10. 2 mg/dL [facility] Chloride [Moles/Vol] 104 mmol/L 97 - 10 5 mmol/L [facility] CO2 [Moles/Vol] 21 mmol/L Low 22 - 30 mmol/L [facility] Creatinine [Mass/Vol] 0.86 mg/dL 0.58 - 0.96 mg/dL [facility] Estimated Glomerular Filtration Rate 95 mL/min/1.73m >=60 mL/min/1.73m [facility] Glucose [Mass/Vol] 113 mg/dL High 74 - 99 mg/dL [facility] Potassium [Moles/Vol] 3.8 mmol/L 3.7 - 5.1 mmol/L [facility] Protein [Mass/Vol] 7.1 g/dL 6.3 - 8.0 g/dL [facility] Sodium [Moles/Vol] 139 mmol/L 136 - 144 mmol/L [facility] Urea nitrogen [Mass/Vol] 13 mg/dL 7 - 21 mg/dL [facility] HbA1c (Bld)on 01-11-2022 Average glucose Estimated from glycated hemoglobin (Bld) [Mass/Vol] 105 mg/dL [facility] HbA1c (Bld) [Mass fraction] 5.3 % 4.3 - 5.6 % [facility] T3 FREE BLDon 01-11-2022 Free T3 [Mass/Vol] 2.9 pg/mL 2.3 - 4.1 pg/mL [facility] T4 FREE/FREE THYROXon 2021 Free T4 [Mass/Vol] 0.9 ng/dL 0.9 - 1.7 ng/dL [facility] [facility] THYROID PEROXIDASE ANTIBODY BLOODon 01-11-2022 TPO Ab Qn 2.5 [IU]/mL <5.6 IU/mL [facility] TSH BLDon 01-11-2022 TSH Qn 3.110 m[IU]/L 0.270 - 4.200 mIU/L [facility] XR Shoulder - right 3 Viewso n 08-02-2021 IMPRESSION: No acute osseous abnormality. Ballistics Expert Forensic: ERVIN Transcribe Date/Time: Aug 02 2021 10:06A [...] is maintained. JanakZZ_DO_NOT_U _DIVISION OF RADIOLOGY Provider, [facility] - 08/02/2021 * * *Final Report* [...] maintained. IMPRESSION IMPRESSION: No acute osseous abnormality. Ballistics Expert Forensic: ERVIN Transcribe Date/Time: Aug 02 2021 10:06A Dictated by : DENITA MARTINS DO This examination was interpreted and the report reviewed and electronically signed by: DENITA MARTINS DO on Aug 02 2021 10:08AM EST [facility] Radiology Study observation (narrative) [facility] XR Shoulder - right 3 ViewsO rdered By: Ccf Provider on 08-02-2021 [facility] XR Shoulder - left 3 Viewson 03-02-2021 IMPRESSION: No acute osseous abnormality identified. Ballistics Expert Forensic: ERVIN Transcribe Date/Time: Mar 02 2021 10:31A Dictated by : ANTONETTE MAHAN MD This examination was interpreted and the report reviewed and electronically signed by: ANTONETTE MAHAN MD on Mar 02 2021 10:32AM [facility] DIVISION OF RADIOLOGY * * *Final Report* [...] identified. DIVISION OF RADIOLOGY Provider, Vivian Koehler [facility] - 03/02/2021 * * *Final Report* [...] IMPRESSION IMPRESSION: No acute osseous abnormality identified. Ballistics Expert Forensic: PSCB Transcribe Date/Time: Mar 02 2021 10:31A Dictated by : ANTONETTE MAHAN MD This examination was interpreted and the report reviewed and electronically signed by: ANTONETTE MAHAN MD on Mar 02 2021 10:32AM EST [facility] Radiology Study observation (narrative) [facility] XR Shoulder - left 3 ViewsOr dered By: Ccf Provider on 03-02-2021 [facility] No Panel Informationon 02-07 IMPRESSION: No acute process is seen. Ballistics Expert Forensic: PSC Transcribe Date/Time: Feb 07 2021 9:31A Dictated by : NETTA JHA MD This examination was interpreted and the report reviewed and electronically signed by: NETTA JHA MD on Feb 07 2021 9:32AM EST DIVISION OF RADIOLOGY Radiology Study observation (narrative) [facility] No Panel InformationOrdered By: Ccf Provider on 02-07-2021 [facility] XR Ankle - left AP [...] abnormality is seen. DIVISION OF RADIOLOGY Provider, [facility] - 02/07/2021 * * *Final Report* [...] IMPRESSION IMPRESSION: No acute process is seen. Ballistics Expert Forensic: ERVIN Transcribe Date/Time: Feb 07 2021 9:31A Dictated by : NETTA JHA MD This examination was interpreted and the report reviewed and electronically signed by: NETTA JHA MD on Feb 07 2021 9:32AM EST [facility] XR Foot - left AP [...] abnormality is seen. DIVISION OF RADIOLOGY Provider, [facility] - 02/07/2021 * * *Final Report* [...] IMPRESSION IMPRESSION: No acute process is seen. Ballistics Expert Forensic: ERVIN Transcribe Date/Time: Feb 07 2021 9:31A Dictated by : NETTA JHA MD This examination was interpreted and the report reviewed and electronically signed by: NETTA JHA MD on Feb 07 2021 9:32AM EST [facility] Telephone Encounteron 2020 [employer] Attendant Authentication Interface Message Text Pt requesting to have all her OB medical records to be send to: [facility] [address] [place] [address]# [phone] LARISA has been advised for patient to be signed in order to process. Normal [employer] HPV High Riskon 07-06-2017 HPV (subset 1 of 2) Presence Positive Abnormal Negative [facility] Comment on above: Result Comment: This test was developed and its performance characteristicsdetermined by [employer]. It has not been cleared or approvedby the Food and Drug Administration.This high-risk HPV test detects thirteen high-risk types(16/18/31/33/35/39/45/51/52/56/58/59/68) without differentiation.Performed at: =[address] [place] [id number] MD Mayda Ruffin Performed By: #### 1 [id number], [id number], [id number] ####[place] [place] [address] IGP W/hpv Rfx [id number] 07-06 Knobber (cervix/vaginal) Comment Invalid Interpretation Code [facility] Comment on above: Result Comment: Tho Wong, Certified Dental Assistant (ASCP) Performed By: #### 1 [id number], [id number], [id number] ####[facility] [address] [place] [address] Cytology report (cervical/vaginal) Comment Invalid Interpretation Code [facility] Comment on above: Result Comment: This liquid based SurePath(R) pap test was screened with theassistance of an image guided system. Performed By: #### 1 [id number], [id number], [id number] ####[facility] [address] [place] [address] Diagnosis: Comment Abnormal [facility] Comment on above: Result Comment: EPIT HELIAL CELL ABNORMALITY.ATYPICAL SQUAMOUS CELLS OF UNDETERMINED SIGNIFICANCE. Performed By: #### 1 [id number], [id number], [id number] ####[facility] [address] [place] [address] HPV Indication Comment Invalid Interpretation Code [facility] Comment on above: Result Comment: See below for HPV testing results.Performed at: [facility] [address] [place] [id number] MD Osmin Foleyformed at: [facility] [address] [place] [id number] MD Mayda Ruffin Performed By: #### 1 [id number], [id number], [id number] ####[address] [place] [address] Note Comment Invalid Interpretation Code [facility] Comment on above: Result Comment: The Pap smear is a screening test designed to aid in the detection ofpremalignant and malignant conditions of the uterine cervix. It is not adiagnostic procedure and should not be used as the sole means of detectingcervical cancer. Both false-positive and false-negative reports do occur. Performed By: #### 1 [id number], [id number], [id number] ####[address] [place] [address] Path Provided ICD9 Comment Invalid Interpretation Code [facility] Comment on above: Result Comment: R87. 610 Performed By: #### 1 [id number], [id number], [id number] ####[address] [place] [address] Pathologist (cervix/vaginal) Comment Invalid Interpretation Code [facility] Comment on above: Result Comment: Elias Salcedo MD, Pathologist Performed By: #### 1 [id number], [id number], [id number] ####[facility] [address] [place] [address] Statement of adequacy (cervix/vaginal) Comment Invalid Interpretation Code [facility] Comment on above: Result Comment: Sati sfactory for evaluation. Endocervical and/or squamous metaplasticcells (endocervical component) are present. Performed By: #### 1 [id number], [id number], [id number] ####[facility] [address] [place] [address] Physician Read Latanya PATHOLOGIST REVIEW:IMP:PT:XXX:JAVID : Performed Invalid Interpretation Code [facility] Comment on above: Result Comment: No. of containers..01 Surepath Collection VialPerformed at: [facility] [address] [id number] MD Osmin Wren Performed By: #### 1 [id number], [id number], [id number] ####[facility] [address] [place] [address] Coding Summary.on 06-28-2017 Coding Summary. CODING DATE: FINAL [facility] STATUS: Home (Routine DC) PAYOR: Medicaid [...] Otoole Date Saved: 06/28/2017 03:49 pm Normal [facility] Coding Summary.on 05-19-2017 Coding Summary. CODING DATE: FINAL [facility] STATUS: Home (Routine DC) PAYOR: Medicaid Grouper: [...] weeks gestation of PROCEDURES DOCTOR NAME DATE [id number] Delivery of Products of Venancio Rdidle MD 05/16/2017 Conception, External Approach [id number] Repair Perineum Skin, External Venancio Riddle MD 05/16/2017 Approach [id number] Introduction of Analgesics, Tello Lanier Jr., DO 05/16/2017 Hypnotics, Sedatives into Spinal Canal, Percutaneous Approach [id number] Drainage of Amniotic Fluid, Venancio Riddle MD 05/16/2017 Therapeutic from Products of Conception, Via Natural or Artificial Opening NOTE: The code number assigned matches the documented diagnosis and / or procedure in the patient's chart. However, the narrative phrase printed from the coding software may appear abbreviated, or result in slightly different terminology. Coded By: Kaitlyn Mendoza Date Saved: 05/19/2017 06:57 pm [facility] Delivery Summaryon 8 Delivery Summary DATE OF [...] in the room.Venancio Riddle MD, FACOGglsDictated: 05/18/2017 #[id number]: 05/18/2017 #[id number]: Venancio Riddle MD, [facility] Comment on above: Result Comment: Elec tronically Signed By: Venancio Riddle MD\.br\Date and Time Signed: 05/18/17 09:33 EDT Discharge Instructions Given Worseningon 05-18-2017 Discharge Instructions Given Worsening The following Patient Education Materials have been given to the patient: EducationMaterial [facility] Discharge Summaryon 05-19-19 Discharge Summary DATE OF [...] Course: Without complications.Venancio Riddle MD, FACOGglsDictated: 05/18/2017 #[id number]: 05/18/2017 #[id number]: Venancio Riddle MD, [facility] Comment on above: Result Comment: [...] examination for details.Venancio Riddle MD, FACOGglsDictated: 05/18/2017 #[id number] 05/18/2017 #[id number]: Venancio Riddle MD, FACOG Normal [facility] Comment on above: Result Comment: Elec tronically Signed By: Georgette ADAMS, Venancio Freitas\.br\Date and Time Signed: 05/18/17 09:33 EDT Inpatient Clinical Summaryon 05-18-2017 Inpatient Clinical Summary [place] [address] Clinical Summary Person Information Name: Wei SMITH/Soni Age: 22 Years : 1995 12:00 AM Sex: Female PCP: Venancio Riddle MD Marital Status:Single Race:White Ethnicity:Non- or Language:Luxembourger Visit Id: Visit Reason: Speciality: Acuity: 2 PP Enc Type: Inpatient Med Service: Obstetrics Arrival:05/15/2017 4:41 PM Discharge: 05/18/2017 1:45 PM Dispo Type: Home (Routine DC) Address:[address] [place] [id number] Provider Notes:Discharge Summary Diagnosis:Normal labor and delivery [...] Physician: Follow up:With: Address: When: Dr. Riddle [phone] Within 6 weeks Comments: Call for any problems. Patient Education Information: Normal [facility] Inpatient Patient Summaryon 05-18-2017 Inpatient Patient Summary [place] [address] Patient Discharge Instructions PERSON INFORMATION Name: RICHARD [...] None Follow up:With: Address: When: Dr. Riddle [phone] Within 6 weeks Comments: Call for any [...] Date MEDICATI ON LISTNew MedicationsCV[id number], [address] [place] [address], [phone] (ibuprofen 600 mg Tab) 1 Tabs By Mouth every 6 hours. Refills: 0.Last Dose: __Next Dose: __Medications to Continue with No ChangesOther Medicationsfluoxetine (Prozac 20 mg Cap) Last Dose: __Next Dose: __multivitamin, ( Multivitamins with Folic Acid 1 mg oral tablet) 1 Tabs By Mouth every day. Refills: 0.Last Dose: __Next Dose: __ Pharmacy Information: [facility] [place] MOTHER EDUCATIONGENERAL INSTRUCTIONSRoom Orientation: Verbalizes understandingBathing/Hy giene: [...] INFORMATIONInstructions :Medication Leaflets: Thank you for choosing [facility] Normal [facility] CBC w/Indiceson 05-17-2017 Erythrocyte distribution width Auto Ratio (RBC) 14.1 % Normal 10.9-14.2 [facility] Comment on above: Performed By: #### 2 [id number] ####[facility] [address] [place] [address] Erythrocytes (RBC) 3.2 E12/L Low 4.3-5.9 [facility] Comment on above: Performed By: #### 2 226781 ####[facility] [address] [place] [address] Hematocrit (HCT) 27.5 % Low 34.0-46.0 [facility] Comment on above: Performed By: #### 2 963940 ####[facility] [address] [place] [address] Hemoglobin mass conc (Bld) 9.3 g/dL Low 12.0-16.0 [facility] Comment on above: Performed By: #### 2 879775 ####[address] [place] [address] MCH 28.6 pg Normal 27.0-34.0 [facility] Comment on above: Performed By: #### 2 553296 ####[address] [place] [address] MCHC mass conc (RBC) 33.7 g/dL Normal 31.4-39.3 [facility] Comment on above: Performed By: #### 2 121079 ####[facility] [address] [place] [address] MCV 84.6 fL Normal 80.0-100.0 [facility] Comment on above: Performed By: #### 2 075475 ####[facility] [address] [place] [address] Platelet mean volume (PMV) 10.7 fL Normal 6.4-10.8 [facility] Comment on above: Performed By: #### 2 795935 ####[facility] [address] [place] [address] Platelets 106.0 E9/L Low 150.0-500.0 [facility] Comment on above: Performed By: #### 2 565314 ####[facility] [address] [place] [address] WBC (Leukocytes) 11.8 E9/L High 4.0-11.0 [facility] Comment on above: Performed By: #### 2 124145 ####[facility] [address] [place] [address] Progress Note-Physicianon Progress Note-Physician Patient: RICHARD SMITH [...] Routine care. Course: Progressing as expected. Normal [facility] Comment on above: Result Comment: Elec [...] Problem list: All ProblemsPregnancy / SNOMED CT 160205404 / ConfirmedResolved: None / SNOMED CT 419581933 Physical Examination General: Alert and oriented, No acute distress. Neurologic: Normal sensory, Normal motor function, No focal deficits. Review / Management Condition: Stable. Assessment Anesthetic outcome No post-epidural complications noted.. Plan Transfer/ Discharge: Condition stable. Normal [facility] Comment on above: Result Comment: Elec [...] medications.Problem list: All ProblemsPregnancy / SNOMED CT 393492265 / ConfirmedResolved: None / SNOMED CT 216397626 Review of Systems Respiratory: Negative. Cardiovascular: Negative. [...] The PCEA was started at 2045. Normal [facility] Comment on above: Result Comment: Elec tronically Signed By: Tello Lanier Jr., DO\.br\Date and Time Signed: 05/16/17 07:02 EDT ABO/Rhon 05-15-2017 ABO/Rh Positive Invalid Interpretation Code [facility] Comment on above: Performed By: #### 2 [id number], [id number], [id number], [id number] ####[facility] [address] [place] [address] ABO/Rh History Checkon 05-15 ABO/Rh History Check Verified Hx Blood Type Normal [facility] Comment on above: Performed By: #### 2 255456, [id number], [id number], [id number] ####[facility] [address] [place] [address] ABSCon 05-15-2017 ABSC Gel Interp Negative Normal [facility] Comment on above: Order Comment: Will arrive at 17:30 Performed By: #### 2 874653, [id number], [id number], [id number] ####[address] [address] Blood Bank ID#on 05-15-2017 BBID# [id number] Invalid Interpretation Code [facility] Comment on above: Performed By: #### 2 709943, [id number], [id number], [id number] ####[address] [address] CBC w/Indiceson 05-15-2017 Erythrocyte distribution width Auto Ratio (RBC) 13.6 % Normal 10.9-14.2 [facility] Comment on above: Performed By: #### 2 293400 ####[address] [address] Erythrocytes (RBC) 3.8 E12/L Low 4.3-5.9 [facility] Comment on above: Performed By: #### 2 567653 ####[address] [place] [address] Hematocrit (HCT) 32.1 % Low 34.0-46.0 [facility] Comment on above: Performed By: #### 2 459862 ####[facility] [address] [place] [address] Hemoglobin mass conc (Bld) 11.0 g/dL Low 12.0-16.0 [facility] Comment on above: Performed By: #### 2 093562 ####[facility] [address] [place] [address] MCH 28.8 pg Normal 27.0-34.0 [facility] Comment on above: Performed By: #### 2 756491 ####[facility] [address] [place] [address] MCHC mass conc (RBC) 34.3 g/dL Normal 31.4-39.3 [facility] Comment on above: Performed By: #### 2 670306 ####[address] [address] MCV 83.8 fL Normal 80.0-100.0 [facility] Comment on above: Performed By: #### 2 378867 ####[address] [address] Platelet mean volume (PMV) 10.5 fL Normal 6.4-10.8 [facility] Comment on above: Performed By: #### 2 512117 ####[address] [address] Platelets 148.0 E9/L Low 150.0-500.0 [facility] Comment on above: Performed By: #### 2 456631 ####[address] [address] WBC (Leukocytes) 9.2 E9/L Normal 4.0-11.0 [facility] Comment on above: Performed By: #### 2 958360 ####[address] [address] U Drug Screenon 05-15-2017 AMPHETAMINES:PRTHR:PT :URINE:ORD:SCREEN>100 0 NG/ML Negative Normal Negative [facility] Comment on above: Result Comment: Nega tive Cutoff: <1000 ng/mL Performed By: #### 2 500171 ####[address] [address] OPIATES:PRTHR:PT:URIN E:ORD:SCREEN Negative Normal Negative [facility] Comment on above: Result Comment: Nega tive Cutoff: <300 ng/mL Performed By: #### 2 733382 ####[facility] [address] [place] [address] PHENCYCLIDINE:PRTHR:P T:URINE:ORD:SCREEN>25 NG/ML Negative Normal Negative [facility] Comment on above: Result Comment: Nega tive Cutoff: <25 ng/mLThese drug screen results are to be used for medical (i.e., treatment) purposes only. Unconfirmed drug screening results must not be used for non-medical purposes (e.g., employment testing, legal testing). Performed By: #### 2 759119 ####[place] [address] TETRAHYDROCANNABINOL: PRTHR:PT:URINE:ORD:SC REEN>50 NG/ML Negative Normal Negative [facility] Comment on above: Result Comment: Nega tive Cutoff: <50 ng/mL Performed By: #### 2 574433 ####[address] [address] Urine, barbiturates presence Negative Normal Negative [facility] Comment on above: Result Comment: Nega tive Cutoff: <200 ng/mL Performed By: #### 2 343383 ####[address] [address] Urine, benzodiazepines presence Negative Normal Negative [facility] Comment on above: Result Comment: Nega tive Cutoff: <200 ng/mL Performed By: #### 2 028516 ####[address] [address] Urine, cocaine presence Negative Normal Negative [facility] Comment on above: Result Comment: Nega tive Cutoff: <300 ng/mL Performed By: #### 2 489425 ####[facility] [address] [place] [address] UA With Cult Reflexon 2017 Bilirubin Ql (U) Negative Normal Negative [facility] Comment on above: Order Comment: Urina ry Catheter Insertion triggered Urinalysis With Culture Reflex order by discern. Performed By: #### 1 [id number] ####[place] [address] COLOR:TYPE:PT:URINE:N OM:AUTO YELLOW Normal Yellow [facility] Comment on above: Order Comment: Urina ry Catheter Insertion triggered Urinalysis With Culture Reflex order by discern. Performed By: #### 1 [id number] ####[place] [address] Erythrocytes (RBC) 0-3 Normal 0-3 [facility] Comment on above: Order Comment: Urina ry Catheter Insertion triggered Urinalysis With Culture Reflex order by discern. Performed By: #### 1 3578799 ####[place] [address] GLUCOSE:MCNC:PT:URINE :QN:TEST STRIP Negative Normal Negative [facility] Comment on above: Order Comment: Urina ry Catheter Insertion triggered Urinalysis With Culture Reflex order by discern. Performed By: #### 1 1071999 ####[place] [address] KETONES:MCNC:PT:URINE :QN:TEST STRIP Negative Normal Negative [facility] Comment on above: Order Comment: Urina ry Catheter Insertion triggered Urinalysis With Culture Reflex order by discern. Performed By: #### 1 1105531 ####[place] [address] LEUKOCYTES:PRTHR:PT:U RINE:ORD:AUTOMATED TRACE Abnormal Negative [facility] Comment on above: Order Comment: Urina ry Catheter Insertion triggered Urinalysis With Culture Reflex order by discern. Performed By: #### 1 [id number] ####[place] [address] UA Spec Desc Random Urine Normal [facility] Comment on above: Order Comment: Urina ry Catheter Insertion triggered Urinalysis With Culture Reflex order by discern. Performed By: #### 1 3771939 ####[place] [address] Urine, clarity CLEAR Normal Clear [facility] Comment on above: Order Comment: Urina ry Catheter Insertion triggered Urinalysis With Culture Reflex order by discern. Performed By: #### 1 3861304 ####[facility] [address] [place] [address] Urine, hemoglobin presence Negative Normal Negative [facility] Comment on above: Order Comment: Urina ry Catheter Insertion triggered Urinalysis With Culture Reflex order by discern. Performed By: #### 1 8431144 ####[facility] [address] [place] [address] Urine, leukocytes in sedmiment 0-5 Normal 0-5 [facility] Comment on above: Order Comment: Urina ry Catheter Insertion triggered Urinalysis With Culture Reflex order by discern. Performed By: #### 1 [id number] ####[facility] [address] [place] [address], [place] [address] Urine, mucus presence in sediment TRACE Normal [facility] Comment on above: Order Comment: Urina ry Catheter Insertion triggered Urinalysis With Culture Reflex order by discern. Performed By: #### 1 [id number] ####[facility] [address] [place] [address] Urine, nitrite presence Negative Normal Negative [facility] Comment on above: Order Comment: Urina ry Catheter Insertion triggered Urinalysis With Culture Reflex order by discern. Performed By: #### 1 4439685 ####[facility] [address] [place] [address] Urine, pH 6.5 [pH] Invalid Interpretation Code 5.0-9.0 [facility] Comment on above: Order Comment: Urina ry Catheter Insertion triggered Urinalysis With Culture Reflex order by discern. Performed By: #### 1 2726672 ####[facility] [address] [place] [address] Urine, protein TRACE Abnormal Negative [facility] Comment on above: Order Comment: Urina ry Catheter Insertion triggered Urinalysis With Culture Reflex order by discern. Performed By: #### 1 7767912 ####[facility] [address] [place] [address] Urine, specific gravity 1.020 Invalid Interpretation Code 1.005-1.030 [facility] Comment on above: Order Comment: Urina ry Catheter Insertion triggered Urinalysis With Culture Reflex order by discern. Performed By: #### 1 9848860 ####[facility] [address] [place] [address] Urine, squamous cells in sediment 0-2 Normal 0-2 [facility] Comment on above: Order Comment: Urina ry Catheter Insertion triggered Urinalysis With Culture Reflex order by discern. Performed By: #### 1 [id number] ####[address] [address] Urine, urobilinogen 0.2 {George'U}/dL Normal 0.0-1.0 [facility] Comment on above: Order Comment: Urina ry Catheter Insertion triggered Urinalysis With Culture Reflex order by discern. Performed By: #### 1 [id number] ####[address] [address] C Urineon 03-19-2017 Urine culture, bacteria MicrobiologyPROCEDURE: Urine Culture [R1] U CleanCatch BODY SITE:COLLECTED DATE/TIME: 03/17/2017 14:40 EST RECEIVED DATE/TIME: 03/17/2017 15:19 ESTSTART DATE/TIME: 03/17/2017 15:19 EST FREE TEXT SOURCE:Georgette ADAMS, Venancio Riddle MD, Venancio FreitasFINAL REPORTSFinal Report [] Verified Date/Time: 03/19/2017 08:46 EST2,000 cfu/ml Mixed skin contaminantsPerforming LocationsR1: This test was performed at: [facility], [address] [place] [address], [id number] , [facility] Comment on above: Performed By: #### 1 [id number], [id number] ####[address] [address] Coding Summary.on 03-19-2017 Coding Summary. CODING DATE: 018 FINAL [facility] DSC STATUS: Home (Routine DC) PAYOR: [...] Revised Date Saved: 03/19/2017 08:04 am Normal [facility] Discharge Instructions Given Worseningon 03-17-2017 Discharge Instructions Given Worsening The following Patient Education Materials have been given to the patient: EducationMaterial Normal [facility] FFNon 03-17-2017 FIBRONECTIN.:PRT HR:PT:VAG:ORD: Negative [facility] Comment on above: Result Comment: In S [...] the antibody-antigen reaction. Performed By: #### 1 [id number] ####[facility] [address] [place] [address] Inpatient Clinical Summaryon 03-17-2017 Inpatient Clinical Summary [address] [address] Clinical Summary Person Information Name: Wei SMITH/Soni Age: 21 Years : 1995 12:00 AM Sex: Female PCP: Georgette ADAMS, Venancio Freitas Marital Status:Single Race:White Ethnicity:Non- or Language:Luxembourger Visit Id: Visit Reason:31 WEEKS Speciality: Acuity: Obs Enc Type: Observation Med Service: Obstetrics Arrival:03/17/2017 2:26 PM Discharge: 03/17/2017 7:10 PM Dispo Type: Home (Routine DC) Address:[address] [facility] [id number] Provider Notes: Diagnosis: Problems Active (09/05/2016) Smoking [...] Physician: Follow up:With: Address: When: Venancio Riddle [address] [place] [address], [address] [address] [facility] (1) 02/16/17 00:00:00 Comments: Call Dr if fever>100.5 F, heavy bleeding Call for any problems. Call for severe abdominal pain Call physician for heavy vaginal bleeding Call physician if symptoms worsen Return for contractions closer, longer, and harder Return for decreased movement keep scheduled appt with dr riddle Patient Education Information: [facility] Inpatient Patient Summaryon 03-17-2017 Inpatient Patient Summary [address] [address] Patient Discharge Instructions PERSON INFORMATION [...] results: Follow up:With: Address: When: Venancio Riddle [address] [place] [address] Business (1) 02/16/17 00:00:00 Comments: Call [...] times a day. Refills: 0. Pharmacy Information: [facility] MOTHER EDUCATIONGENERAL INSTRUCTIONSRoom Orientation: Bathing/Hygiene: Burping: Bulb [...] INFORMATIONInstructions :Medication Leaflets: Thank you for choosing [facility] Normal [facility] UA With Cult Reflexon 2017 BACTERIA:PRTHR:PT:URI NE SED:ORD:MICROSCOPY.LI GHT 3+ /HPF Abnormal Trace [facility] Comment on above: Performed By: #### 1 [id number], [id number] ####[address] [place] [address] Bilirubin Ql (U) Negative Normal Negative [facility] Comment on above: Performed By: #### 1 9881202, 9882155 ####[address] [address] COLOR:TYPE:PT:URINE:N OM:AUTO YELLOW Normal Yellow [facility] Comment on above: Performed By: #### 1 [id number], [id number] ####[facility] [address] [place] [address] Erythrocytes (RBC) 4-20 Normal 0-3 [facility] Comment on above: Performed By: #### 1 3931441, 8857104 ####[facility] [address] [place] [address] GLUCOSE:MCNC:PT:URINE :QN:TEST STRIP Negative Normal Negative [facility] Comment on above: Performed By: #### 1 4131555, 0747291 ####[facility] [address] [address] KETONES:MCNC:PT:URINE :QN:TEST STRIP Negative Normal Negative [facility] Comment on above: Performed By: #### 1 4070079, 0388304 ####[address] [address] LEUKOCYTES:PRTHR:PT:U RINE:ORD:AUTOMATED TRACE Abnormal Negative [facility] Comment on above: Performed By: #### 1 0624059, 1113863 ####[address] [address] UA Spec Desc Random Urine Normal [facility] Comment on above: Performed By: #### 1 6674126, 8072515 ####[address] [address] Urine, clarity CLOUDY Abnormal Clear [facility] Comment on above: Performed By: #### 1 0218230, 2371246 ####[address] [address] Urine, hemoglobin presence Negative Normal Negative [facility] Comment on above: Performed By: #### 1 6767490, 1342730 ####[address] [address] Urine, leukocytes in sedmiment /[HPF] Abnormal 0-5 [facility] Comment on above: Performed By: #### 1 1691308, 1449487 ####[address] [address] Urine, nitrite presence Negative Normal Negative [facility] Comment on above: Performed By: #### 1 1135404, 9212409 ####[address] [address] Urine, pH 6.0 [pH] Invalid Interpretation Code 5.0-9.0 [facility] Comment on above: Performed By: #### 1 5731836, 0723280 ####[address] [address] Urine, protein Negative Normal Negative [facility] Comment on above: Performed By: #### 1 4223691, 6435583 ####[facility] [address] [place] [address] Urine, specific gravity 1.025 Invalid Interpretation Code 1.005-1.030 [facility] Comment on above: Performed By: #### 1 1177387, 1020387 ####[facility] [address] [place] [address] Urine, squamous cells in sediment /[HPF] Normal 0-2 [facility] Comment on above: Performed By: #### 1 3329188, 9342601 ####[facility] [address] [place] [address] Urine, urobilinogen 0.2 {George'U}/dL Normal 0.0-1.0 [facility] Comment on above: Performed By: #### 1 2745423, 9152904 ####[address] [address] Coding Summary.on 02-20-2017 Coding Summary. CODING DATE: 018 [facility] STATUS: Home (Routine DC) PAYOR: Medicaid EA [...] Unger Date Saved: 02/20/2017 06:59 am Normal [facility] Gest Scr Glu 1 Hron 02-19-19 Glucose mass conc 86 mg/dL Normal 55-140 [facility] Comment on above: Result Comment: Posi tive Screen =1 HR > 140mg/dL Performed By: #### 1 3094736, 16980437 ####[facility] [address] [place] [address] Hct & Hgbon 02-19-2017 Hematocrit (HCT) 34.3 % Normal 34.0-46.0 [facility] Comment on above: Performed By: #### 1 1693665, 57175406 ####[address] [address] Hemoglobin mass conc (Bld) 12.0 g/dL Normal 12.0-16.0 [facility] Comment on above: Performed By: #### 1 5161033, 12455450 ####[address] [address] Coding Summary.on 11-03-2016 Coding Summary. CODING DATE: 017 [facility] STATUS: Home (Routine DC) PAYOR: Medicaid EAPG [...] Revised Date Saved: 11/03/2016 04:01 pm Normal [facility] IGP W/hpv Rfx [id number] 11-03 Knobber (cervix/vaginal) Comment Invalid Interpretation Code [facility] Comment on above: Result Comment: Patricia Bruce, Certified Dental Assistant (ASCP) Performed By: #### 1 [id number] ####[address] [address] Cytology report (cervical/vaginal) Comment Invalid Interpretation Code [facility] Comment on above: Result Comment: This liquid based SurePath(R) pap test was screened with theassistance of an image guided system. Performed By: #### 1 3941345 ####[address] [address] Diagnosis: Comment Invalid Interpretation Code [facility] Comment on above: Result Comment: NEGA TIVE FOR INTRAEPITHELIAL LESION AND MALIGNANCY.CELLULAR CHANGES ASSOCIATED WITH INFLAMMATION ARE PRESENT.THIS SPECIMEN WAS RESCREENED PART OF OUR [employer]ARNISH BLENDER PROGRAM. Performed By: #### 1 [id number] ####[address] [place] [id number] HPV Indication Comment Invalid Interpretation Code [facility] Comment on above: Result Comment: The HPV DNA reflex criteria were not met with this specimen resulttherefore, no HPV testing was performed.No. of containers..01 Surepath Collection VialPerformed at: [facility] [place] [id number] MD Mayda Ruffin Performed By: #### 1 [id number] ####[place] [address] Note Comment Invalid Interpretation Code [facility] Comment on above: Result Comment: The Pap smear is a screening test designed to aid in the detection ofpremalignant and malignant conditions of the uterine cervix. It is not adiagnostic procedure and should not be used as the sole means of detectingcervical cancer. Both false-positive and false-negative reports do occur. Performed By: #### 1 [id number] ####[place] [address] [place] Reviewed by: Comment Invalid Interpretation Code [facility] Comment on above: Result Comment: Nely Aguirre, Supervisory Certified Dental Assistant (ASCP) Performed By: #### 1 [id number] ####[place] [address] Statement of adequacy (cervix/vaginal) Comment Invalid Interpretation Code [facility] Comment on above: Result Comment: Sati sfactory for evaluation. Endocervical and/or squamous metaplasticcells (endocervical component) are present. Performed By: #### 1 5654175 ####[address] [address] C Urineon 10-14-2016 Urine culture, bacteria MicrobiologyPROCEDURE: Urine Culture [R1] U CleanCatch BODY SITE:COLLECTED DATE/TIME: 10/12/2016 11:00 EDT RECEIVED DATE/TIME: 10/12/2016 20:57 EDTSTART DATE/TIME: 10/12/2016 20:57 EDT FREE TEXT SOURCE:Georgette ADAMS, Venancio Riddle MD, Venancio FreitasFINAL REPORTSFinal Report [] Verified Date/Time: 10/14/2016 10:06 EDT4,000 cfu/ml Lactobacillus species PresumptivePerforming LocationsR1: This test was performed at: [facility], [address] [place] [address], [address]- , [facility] Comment on above: Performed By: #### 2 455864 ####[facility] [address] [place] [address] Hep Bs Agon 10-14-2016 Hepatitis B antigen presence Negative Invalid Interpretation Code Negative [facility] Comment on above: Result Comment: Perf ormed at: [facility] [address] [id number] PhD Salma Campbell Performed By: #### 2 921132, 8017401, 8808885, 5936124 ####[facility] [address] [place] [address] Coding Summary.on 10-13-2016 Coding Summary. CODING DATE: 017 FINAL [facility] STATUS: Home (Routine DC) PAYOR: Medicaid [...] Bourgeois Date Saved: 10/13/2016 09:54 am Normal [facility] RPRon 10-13-2016 Reagin antibody presence Non-Reactive Normal Non-Reactive [facility] Comment on above: Performed By: #### 2 061570, 0808914, 5947360, 0721733 ####[facility] [address] [place] [address] Rubella Abon 10-13-2016 Rubella Ab Positive Normal Positive [facility] Comment on above: Performed By: #### 2 193648, 5700285, 9889398, 1486401 ####[facility] [address] [place] [address] ABO/Rhon 10-12-2016 ABO/Rh Positive Invalid Interpretation Code [facility] Comment on above: Performed By: #### 2 632187, 16212730 ####[facility] [address] [place] [address] ABSCon 10-12-2016 ABSC Gel Interp Negative Normal [facility] Comment on above: Performed By: #### 2 321080, 77722660 ####[facility] [address] [place] [address] CBC w/Indiceson 10-12-2016 Erythrocyte distribution width Auto Ratio (RBC) 13.0 % Normal 10.9-14.2 [facility] Comment on above: Performed By: #### 2 007726, 0006376, 1298901, 5321198 ####[facility] [address] [place] [address] Erythrocytes (RBC) 4.5 E12/L Normal 4.3-5.9 [facility] Comment on above: Performed By: #### 2 824250, 6806596, 9072714, 9780331 ####[facility] [address] [place] [address] Hematocrit (HCT) 40.7 % Normal 34.0-46.0 [facility] Comment on above: Performed By: #### 2 789659, 5885585, 9310601, 8186160 ####[facility] [place] [address] Hemoglobin mass conc (Bld) 13.4 g/dL Normal 12.0-16.0 [facility] Comment on above: Performed By: #### 2 311411, 9862920, 9050515, 4829450 ####[place] [address] MCH 29.7 pg Normal 27.0-34.0 [facility] Comment on above: Performed By: #### 2 403768, 8442873, 4293082, 5088201 ####[place] [address] MCHC mass conc (RBC) 33.0 g/dL Normal 31.4-39.3 [facility] Comment on above: Performed By: #### 2 268385, 6084187, 4505166, 9660451 ####[place] [address] MCV 89.9 fL Normal 80.0-100.0 [facility] Comment on above: Performed By: #### 2 370153, 1856407, 9015905, 5657586 ####[place] [address] Platelet mean volume (PMV) 10.8 fL Normal 6.4-10.8 [facility] Comment on above: Performed By: #### 2 554319, 3673132, 2413398, 3703480 ####[place] [address] Platelets 198.0 E9/L Normal 150.0-500.0 [facility] Comment on above: Performed By: #### 2 671023, 2310243, 3387776, 3218541 ####[place] [address] WBC (Leukocytes) 10.1 E9/L Normal 4.0-11.0 [facility] Comment on above: Performed By: #### 2 289504, 8999561, 2749507, 6514101 ####[address] [place] [address] Coding Summary.on 10-03-2016 Coding Summary. CODING DATE: 017 FINAL [facility] STATUS: Home (Routine DC) PAYOR: Medicaid [...] Kirby Revised Date Saved: 10/03/2016 11:20 am [facility] C Cervicalon 09-29-2016 Cervical Culture MicrobiologyPROCEDUR E: [...] observed.Performing LocationsR1: This test [facility] performed at: [facility], [address] [place] [address], [address] , [facility] Comment on above: Performed By: #### 1 [id number] ####[facility] [address] [place] [address] ED Note-Physicianon 09-29-19 ED Note-Physician Patient: RICHARD [...] History of Present Illness Patient presents to [facility] ED with a chief complaint of vaginal [...] Medical/ Family/ Social History Medical history: ResolvedNone ([id number]): Resolved.. Surgical history: None ([id number]).. Family history: No family history items have been selected or recorded.. Social history: Social & Psychosocial TvvihsDffemyf84/20/2016 Risk Assessment: No RiskSubstance Abuse10/26/2015 Risk Assessment: Denies Substance FcqfkGpznufo78/20/2016 Risk Assessment: Denies Tobacco Use. Physical Examination [...] Dr. Mariana Lopez D.O., resident with nurse doctor of osteopathy present during the exam., Bimanual exam: no [...] Patient voices understanding. Impression and Plan Diagnosis (NPC03-EP Z33.1, Discharge, Medical) Abdominal cramping (COS94-EY R10.9, Discharge, Medical) Bacterial vaginosis (IBI03-EM N76.0, Discharge, Medical) Calls-Consults - Georgette ADAMS, Venancio Freitas, phone call, recommends ampicillin and a follow-up in the office for care.. Plan Condition: Stable. Disposition: Discharged: Time 09/27/16 18:41:00, to home. Prescriptions: Launch prescriptions Pharmacy:ampicillin 500 mg Cap (Prescribe): 500 = 1 mg cap(s), Oral, BID, # 14 cap(s), Refills(s) 0. Patient was given the following educational materials: Bacterial Vaginosis, Syud-lk-Jtgy, Vaginal Bleeding During , First Trimester. Follow up with: Mohinder Jurado In 3 days 09/30/2016; Venancio Riddle In 2 days 09/29/2016. Counseled: Patient, Family, Friend, Regarding diagnosis, Regarding diagnostic results, Regarding treatment plan, Regarding prescription, Patient indicated understanding of instructions. [facility] Comment on above: Result Comment: Elec tronically Signed By: Jenny Mcguire DO\.br\Date and Time Signed: 09/28/16 09:19 EDT BhCG Quanton 09-27-2016 [place] [address] m[IU]/mL High 1-3 F [facility] Comment on above: Result Comment: GEST ATIONAL AGE HCG RANGE (mIU/mL) NON- <1-3 0.2-1 WEEKS 5-50 1-2 WEEKS 50-500 2-3 WEEKS 100-5,000 3-4 WEEKS 500-10,000 4-5 WEEKS 1,000-50,000 5-6 WEEKS 10,000-100,000 6-8 WEEKS 15,000-200,000 8-12 WEEKS 10,000-100,000 Performed By: #### 2 [id number], [id number] ####[facility] [address] [place] [address] ED Clinical Summaryon 2016 ED Clinical Summary (Inserted Image. Jeimy ble to display) [place] [address] ED Clinical SummaryPerson Information Name: Wei SMITH/JayShell Age: 21 Years : 1995 12:00 AM Sex: Female Language:Luxembourger PCP: Marquis Freeman MD Marital Status:Single Visit [...] 7:41 PM 09/27/2016 7:41 PM ADDRESS:[address] [facility] [id number] PHYS DOC NOTES: MEDICAL INFORMATION: Prescriptions Given:Prescription Display ampicillin (ampicillin 500 mg Cap) 500 mg = 1 cap(s), Oral, BID, # 14 cap(s), Refills(s) 0 PATIENT EDUCATION INFORMATION: Instructions:Bacterial Vaginosis, Embw-he-Aotk; Vaginal Bleeding During , First Trimester Follow up:With: Address: When: Venancio Riddle [address] [facility], [address] [address] Business (1) In 2 days 09/29/2016 With: Address: When: Mohinder Jurado [address] [facility], [facility], [place] [address] Business (1) In 3 days DIAGNOSIS:Abdominal cramping; Bacterial vaginosis; [facility] ED Patient Education Noteon 09-27-2016 ED Patient [...] to your health care provider.? Only take uqbj-pqp-rkadeos or prescription medicines as directed by your [...] 01/27/2014 Document Reviewed: 09/29/2013ExitCare? Patient Information ?2015 [employer]. This information is not intended to replace [...] 11/12/2013 Document Reviewed: 09/03/2013ExitCare? Patient Information ?2015 [employer]. This information is not intended to replace advice given to you by your health care provider. Make sure you discuss any questions you have with your health care provider. Normal [facility] ED Patient Summaryon 017 ED Patient Summary (Inserted Image. Jeimy ble to display) [address] [address] Patient Discharge Instructions Person Information Name: RICHARD SMITH Age: 21 Years Date: 09/27/2016 3:24 PMDischarge Diagnosis: Abdominal cramping; Bacterial vaginosis; Primary Care Physician: Marquis Freeman MD Provider InformationPrimary Provider: Abby Mcguire DO Decorative Greens Cutter:None The exam and treatment you received in the Emergency Department were for an urgent problem and are not intended as complete care. It is important that you follow up with a doctor, nurse practitioner, or physician?s claims assistant for ongoing care. If your symptoms become worse or you do not improve as expected and you are unable to reach your usual health care provider, you should return to the Emergency Department. We are available 24 hours a day. RICHARD SMITH has been given the following list of patient education materials, prescriptions and follow-up instructions: Follow-up Instructions:With: Address: When: Venancio Riddle [address] [place] [address] Business (1) In 2 days 09/29/2016 With: Address: When: Mohinder Jurado [address] [place] [address], [facility], [facility] [place] [address] Business (1) In 3 days In the event that this physician does not participate in your insurance network, please consult with your insurance company to find a nearby participating provider. Patient Education Materials:Bacterial Vaginosis, Ybnv-fn-Jhwr; Vaginal Bleeding During , First Trimester Medications Given:Medication Dose Route ampicillin 500.00 mg Oral Medication Information:New MedicationsPrinted Prescriptionsampicillin (ampicillin 500 mg Cap) 1 Capsules By Mouth 2 times a day. Refills: 0.Medications to Continue with No ChangesOther Medicationsmultivitamin , ( Multivitamins with Folic Acid 1 mg oral tablet) 1 Tabs By Mouth every day. Refills: 0.Comment: Pharmacy Information: Thank you for choosing [facility] P atient Education Materials: Bacterial VaginosisBacterial [...] 11/12/2013 Document Reviewed: 09/03/2013ExitCare? Patient Information ?2014 [employer]. This information is not intended to replace [...] to your health care provider.? Only take dhrh-bqt-fzyavfl or prescription medicines as directed by your [...] 01/27/2014 Document Reviewed: 09/29/2013ExitCare? Patient Information ?2014 [employer]. This information is not intended to replace advice given to you by your health care provider. Make sure you discuss any questions you have with your health care provider.SARAH Broderick KERA , have received the following patient education materials/instructions and have verbalized understanding: Patient Education Materials: Bacterial Vaginosis, Rhvx-ot-Sonw; Vaginal Bleeding During , First Trimester Follow-up Instructions: With: Address: When: Venancio Riddle [address] [place] [address] Business (1) In 2 days 09/29/2016 With: Address: When: Mohinder Jurado [address] [place] [address] [facility] () In 3 days Prescriptions: [ampicillin (ampicillin 500 mg Cap)] Patient Signature Date Clinician/Nurse Signature _ Date 09/27/16 19:41:59 Normal [facility] Urinalysison 09-27-2016 BACTERIA:PRTHR:PT:URI NE SED:ORD:MICROSCOPY.LI GHT 3+ /HPF Abnormal Trace [facility] Comment on above: Performed By: #### 2 5484519, [id number] ####[facility] [address] [place] [address] Bilirubin Ql (U) Negative Normal Negative [facility] Comment on above: Performed By: #### 2 8902676, 98418815 ####[facility] [address] [place] [address] COLOR:TYPE:PT:URINE:N OM:AUTO YELLOW Normal Yellow [facility] Comment on above: Performed By: #### 2 4871976, 93022278 ####[address] [address] Erythrocytes (RBC) 4-20 Normal 0-3 [facility] Comment on above: Performed By: #### 2 3370075, 98696683 ####[facility] [address] [place] [address] GLUCOSE:MCNC:PT:URINE :QN:TEST STRIP Negative Normal Negative [facility] Comment on above: Performed By: #### 2 5945154, 88253566 ####[facility] [address] [place] [address] KETONES:MCNC:PT:URINE :QN:TEST STRIP Negative Normal Negative [facility] Comment on above: Performed By: #### 2 0733842, 18477227 ####[facility] [address] [place] [address] LEUKOCYTES:PRTHR:PT:U RINE:ORD:AUTOMATED Negative Normal Negative [facility] Comment on above: Performed By: #### 2 0307808, 02123625 ####[facility] [address] [place] [address] UA Spec Desc Clean Catch Normal [facility] Comment on above: Performed By: #### 2 7332018, 83037127 ####[facility] [address] [place] [address] Urine, clarity SL CLOUDY Abnormal Clear [facility] Comment on above: Performed By: #### 2 1456499, 00784060 ####[facility] [address] [place] [address] Urine, hemoglobin presence 3+ Abnormal Negative [facility] Comment on above: Performed By: #### 2 4945773, 35723144 ####[facility] [address] [place] [address] Urine, leukocytes in sedmiment 0-5 Normal 0-5 [facility] Comment on above: Performed By: #### 2 7342422, 53707037 ####[facility] [address] [place] [address] Urine, mucus presence in sediment 1+ Normal [facility] Comment on above: Performed By: #### 2 7305271, 22512060 ####[facility] [address] [place] [address] Urine, nitrite presence Negative Normal Negative [facility] Comment on above: Performed By: #### 2 5217213, 59423354 ####[facility] [address] [place] [address] Urine, pH 5.5 [pH] Invalid Interpretation Code 5.0-9.0 [facility] Comment on above: Performed By: #### 2 7455634, 16224377 ####[facility] [address] [place] [address] Urine, protein Negative Normal Negative [facility] Comment on above: Performed By: #### 2 4255764, 93323209 ####[facility] [address] [place] [address] Urine, specific gravity >=1.030 Invalid Interpretation Code 1.005-1.030 [facility] Comment on above: Performed By: #### 2 7146732, 46033556 ####[facility] [address] [place] [address] Urine, squamous cells in sediment 9-10 Normal 0-2 [facility] Comment on above: Performed By: #### 2 0752221, 61528049 ####[place] [address] [place] [address] Urine, urobilinogen 0.2 {George'U}/dL Normal 0.0-1.0 [facility] Comment on above: Performed By: #### 2 5471781, 52909119 ####[facility] [address] [place] [address] C Cervicalon 09-16-2016 Cervical Culture MicrobiologyPROCEDUR E: [...] presentPerforming LocationsR1: This test was performed at: [facility], [address] [place] [address], [address] , Normal [facility] Comment on above: Performed By: #### 2 7175581, [id number] ####[facility] [address] [place] [address] Coding Summary.on 09-15-2016 Coding Summary. CODING DATE: 017 FINAL [facility] STATUS: Home (Routine DC) PAYOR: Self Pay [...] Revised Date Saved: 09/15/2016 01:14 pm Normal [facility] ABO/Rhon 09-14-2016 ABO/Rh Positive Invalid Interpretation Code [facility] Comment on above: Order Comment: Patie nt in [place] Performed By: #### 2 7129704, [id number] ####[facility] [address] [place] [address] Auto Diffon 09-14-2016 Basophils Auto #/vol (Bld) 0.0 E9/L Normal 0.0-0.2 [facility] Comment on above: Order Comment: Order Added by Discern Expert. Performed By: #### 2 5962021, [id number] ####[address] [address] Basophils Auto #/vol (Bld) 0.5 % Normal 0.0-2.0 [facility] Comment on above: Order Comment: Order Added by Discern Expert. Performed By: #### 2 0510499, 55497313 ####[facility] [address] [place] [place] [address] Eosinophils 0.1 E9/L Normal 0.0-0.5 [facility] Comment on above: Order Comment: Order Added by Discern Expert. Performed By: #### 2 [id number], [id number] ####[place] [address] [place] [address] Eosinophils/100 leukocytes 1.0 % Normal 0.0-8.0 [facility] Comment on above: Order Comment: Order Added by Discern Expert. Performed By: #### 2 [id number], [id number] ####[facility] [address] [place] [address] Lymphocytes 2.0 E9/L Normal 1.0-4.0 [facility] Comment on above: Order Comment: Order Added by Arpit Expert. Performed By: #### 2 [id number], [id number] ####[facility] [address] [place] [address] Lymphocytes/100 leukocytes 20.6 % Normal 14.0-50.0 [facility] Comment on above: Order Comment: Order Added by Arpit Expert. Performed By: #### 2 5038952, [id number] ####[facility] [address] [place] [address] Monocytes 0.6 E9/L Normal 0.2-1.0 [facility] Comment on above: Order Comment: Order Added by Arpit Expert. Performed By: #### 2 0985281, [id number] ####[facility] [address] [place] [address], [place] [address] Monocytes/100 leukocytes 6.2 % Normal 4.0-14.0 [facility] Comment on above: Order Comment: Order Added by Arpit Expert. Performed By: #### 2 [id number], [id number] ####[facility] [address] [place] [address] Neutrophils 7.1 E9/L Normal 2.0-7.5 [facility] Comment on above: Order Comment: Order Added by Arpit Expert. Performed By: #### 2 7771785, [id number] ####[facility] [address] [place] [address] Neutrophils/100 leukocytes 71.7 % Normal 36.0-75.0 [facility] Comment on above: Order Comment: Order Added by Arpit Expert. Performed By: #### 2 3639587, [id number] ####[facility] [address] [place] [address] BhCG Quanton 09-14-2016 HCG.beta subunit Qn 7413 m[IU]/mL High 1-3 [facility] Comment on above: Order Comment: Patie nt in [place] Result Comment: GEST ATIONAL AGE HCG RANGE (mIU/mL) NON- <1-3 0.2-1 WEEKS 5-50 1-2 WEEKS 50-500 2-3 WEEKS 100-5,000 3-4 WEEKS 500-10,000 4-5 WEEKS 1,000-50,000 5-6 WEEKS 10,000-100,000 6-8 WEEKS 15,000-200,000 8-12 WEEKS 10,000-100,000 Performed By: #### 2 7893872, [id number] ####[address] [address] CBC w/ Auto Diffon 7 Erythrocyte distribution width Auto Ratio (RBC) 12.6 % Normal 10.9-14.2 [facility] Comment on above: Order Comment: Patie nt in [place] Performed By: #### 2 855511, 4816774, 7285787, 29692560 ####[place] [address] Erythrocytes (RBC) 4.7 E12/L Normal 4.3-5.9 [facility] Comment on above: Order Comment: Patie nt in [place] Performed By: #### 2 755141, 5002446, 2749072, 15205003 ####[place] [address] Hematocrit (HCT) 41.3 % Normal 34.0-46.0 [facility] Comment on above: Order Comment: Patie nt in [place] Performed By: #### 2 897749, 5249255, 5994466, [id number] ####[place] [address] Hemoglobin mass conc (Bld) 13.9 g/dL Normal 12.0-16.0 [facility] Comment on above: Order Comment: Patie nt in [place] Performed By: #### 2 596889, 4916901, 7770053, [id number] ####[place] [address] MCH 29.9 pg Normal 27.0-34.0 [facility] Comment on above: Order Comment: Patie nt in [place] Performed By: #### 2 841000, 8553469, 3524751, [id number] ####[facility] [place] [address] MCHC mass conc (RBC) 33.8 g/dL Normal 31.4-39.3 [facility] Comment on above: Order Comment: Patie nt in [place] Performed By: #### 2 299514, 9581886, 8152075, [id number] ####[address] [address] MCV 88.6 fL Normal 80.0-100.0 [facility] Comment on above: Order Comment: Patie nt in [place] Performed By: #### 2 880171, 5963290, 3449563, [id number] ####[place] [address] Platelet mean volume (PMV) 8.7 fL Normal 6.4-10.8 [facility] Comment on above: Order Comment: Patie nt in [place] Performed By: #### 2 788787, 9233306, 7885638, 68314040 ####[facility] [address] [place] [address] Platelets 238.0 E9/L Normal 150.0-500.0 [facility] Comment on above: Order Comment: Patie nt in [place] Performed By: #### 2 540249, 7482862, 6385784, 64122414 ####[address] [address] WBC (Leukocytes) 10.0 E9/L Normal 4.0-11.0 [facility] Comment on above: Order Comment: Patie nt in [place] Performed By: #### 2 413836, 2252186, 3103445, 55156612 ####[address] [address] CMPon 09-14-2016 Alanine aminotransferase (ALT) 32 Int._Unit/L Normal 6-46 [facility] Comment on above: Order Comment: Patie nt in [place] Performed By: #### 2 0282023, [id number] ####[address] [address] Albumin 4.1 g/dL Normal 3.3-5.0 [facility] Comment on above: Order Comment: Patie nt in [place] Performed By: #### 2 9118097, 95575079 ####[facility] [address] [place] [address] Albumin 1.2 g/dL Normal 1.1-2.2 [facility] Comment on above: Order Comment: Patie nt in [place] Performed By: #### 2 1146340, 55350468 ####[facility] [address] [place] [address] Alkaline phosphatase (ALP) 69 Int._Unit/L Normal 21-98 [facility] Comment on above: Order Comment: Patie nt in [place] Performed By: #### 2 6572929, 37912120 ####[facility] [address] [place] [address] Aspartate aminotransferase (AST) 29 Int._Unit/L Normal 5-43 [facility] Comment on above: Order Comment: Patie nt in [place] Performed By: #### 2 0968682, 45885255 ####[facility] [address] [place] [address] Bilirubin (total) 0.5 mg/dL Normal 0.0-1.1 [facility] Comment on above: Order Comment: Patie nt in [place] Performed By: #### 2 4576051, 17881398 ####[facility] [address] [place] [address] BUN/Creatinine Ratio 10 No Units Normal 10-20 [facility] Comment on above: Order Comment: Patie nt in [place] Performed By: #### 2 3120881, 14849938 ####[facility] [address] [place] [address] Creatinine 0.7 mg/dL Normal 0.5-1.3 [facility] Comment on above: Order Comment: Patie nt in [place] Performed By: #### 2 3237195, 35478955 ####[facility] [address] [place] [address] Globulin 3.4 g/dL Normal 1.4-4.0 [facility] Comment on above: Order Comment: Patie nt in [place] Performed By: #### 2 7758346, 17598562 ####[facility] [address] [place] [address] Protein 7.5 g/dL Normal 6.0-7.8 [facility] Comment on above: Order Comment: Patie nt in [place] Performed By: #### 2 3237605, 26111213 ####[facility] [address] [place] [place] [address] Urea nitrogen 7 mg/dL Normal 5-21 [facility] Comment on above: Order Comment: Patie nt in [place] Performed By: #### 2 5559154, 39954595 ####[facility] [address] [place] [address] Anion gap 11 mmol/L Normal 6-16 [facility] Comment on above: Order Comment: Patie nt in [place] Performed By: #### 2 5978022, 27490273 ####[facility] [address] [place] [place] [address] Calcium 8.9 mg/dL Normal 8.9-11.1 [facility] Comment on above: Order Comment: Patie nt in [place] Performed By: #### 2 9652688, 95603166 ####[facility] [address] [place] [address] Chloride 106 mmol/L Normal 101-111 [facility] Comment on above: Order Comment: Patie nt in [place] Performed By: #### 2 2498581, 32052745 ####[facility] [address] [place] [place] [address] CO2 24 mmol/L Normal 21-31 [facility] Comment on above: Order Comment: Patie nt in [place] Performed By: #### 2 9627911, 60654417 ####[facility] [address] [place] [address] Glucose mass conc 99 mg/dL Normal 55-199 [facility] Comment on above: Order Comment: Patie nt in [place] Result Comment: If t his glucose result represents a fasting glucose, interpretation should refer to the following reference range: 55-99 mg/dL Performed By: #### 2 6947438, 45588978 ####[facility] [address] [place] [address] Potassium molar conc 3.7 mmol/L Normal 3.5-5.3 [facility] Comment on above: Order Comment: Patie nt in [place] Performed By: #### 2 4812522, 79846675 ####[facility] [address] [place] [address] Sodium 137 mmol/L Normal 135-145 [facility] Comment on above: Order Comment: Patie nt in [place] Performed By: #### 2 8580716, 48762600 ####[facility] [address] [place] [address] ED Clinical Summaryon 2016 ED Clinical Summary (Inserted Image. Jeimy ble to display) [address] [address] ED Clinical SummaryPerson Information Name: Wei SM[facility] Age: 21 Years : 1995 12:00 AM Sex: Female Language:Luxembourger PCP: Mohinder Jurado III, DO Marital Status:Single [...] PM 09/14/2016 4:42 PM 09/14/2016 4:42 PM ADDRESS:[address] [place] [id number] PHYS DOC NOTES: Patient: RICHARD SMITH Age: [...] Medical/ Family/ Social History Medical history: ResolvedNone ([id number]): Resolved.. Surgical history: None (SNOMED CT [id number]).. Family history: No family history items have been selected or recorded.. Social history: Social & Psychosocial NuycpmCerqnmw79/20/2016 Risk Assessment: No RiskSubstance Abuse10/26/2015 Risk Assessment: Denies Substance ElhfiZqvejjr61/20/2016 Risk Assessment: Denies Tobacco Use. Physical Examination [...] and medication restrictions. Recommend follow up with Night Supervisor provided. Return to the ED if any further issues or concerns. Pt agreeable to plan of care. Impression and Plan Diagnosis Female pelvic pain (EAB15-BQ R10.2, Discharge, Medical) First trimester (NIJ88-FI Z33.1, Discharge, Medical) Plan Condition: Improved, Stable. [...] [address], [place] [address] Business (1) Within 3 to 5 days Comments: Return to ED if symptoms worsen DIAGNOSIS:Female pelvic pain; First trimester Normal [facility] ED Note-Physicianon 09-15-19 ED Note-Physician Patient: RICHARD [...] Medical/ Family/ Social History Medical history: ResolvedNone ([id number]): Resolved.. Surgical history: None (SNOMED CT 559211391).. Family history: No family history items have been selected or recorded.. Social history: Social & Psychosocial TuvesiRimitfa38/20/2016 Risk Assessment: No RiskSubstance Abuse10/26/2015 Risk Assessment: Denies Substance FocvrLjstsfn08/20/2016 Risk Assessment: Denies Tobacco Use. Physical Examination [...] and medication restrictions. Recommend follow up with Night Supervisor provided. Return to the ED if any further issues or concerns. Pt agreeable to plan of care. Impression and Plan Diagnosis Female pelvic pain (BGL82-GC R10.2, Discharge, Medical) First trimester (ZAT58-GX Z33.1, Discharge, Medical) Plan Condition: Improved, Stable. [...] plan, Patient indicated understanding of instructions. Normal [facility] Comment on above: Result Comment: Elec [...] Blood tests. HOME CARE INSTRUCTIONS? Only take vkzg-pxx-zuoybli or prescription medicines for pain, discomfort, or [...] 06/08/2014 Document Reviewed: 05/13/2012ExitCare? Patient Information ?2014 [employer]. This information is not intended to replace advice given to you by your health care provider. Make sure you discuss any questions you have with your health care provider.Return if you have any problems or concerns. Call the Night Supervisor provided for a follow up appointment. First [...] Move your legs often if you must quill machine tender one place for a long time.? Avoid [...] coffee grounds. ? You are exposed to Norwegian measles and have never had them.? You are exposed to fifth disease or chickenpox.? You develop a severe headache.? You have shortness of breath.? You have any kind of trauma, such as from a fall or a car accident.Document Released: 01/16/2002 Document Revised: 06/08/2014 Document Reviewed: 12/02/2013ExitCare? Patient Information ?2014 [employer]. This information is not intended to replace [...] Discussing with your health care provider:? Prescription, dqkj-ayx-dcqhbpe, and herbal medicines that you take.? Any [...] care provider before taking any medicine, even sdbr-bhp-najhwvc medicines. Some medicines are not safe to [...] Camembert, and chevre) or soft, blue-veined cheese (Welsh blue and Roquefort). ? Stay away from toxic chemicals like:? Insecticides.? Solvents (some household personal assistant or paint thinners).? Lead.? Mercury. ? Sexual [...] baby. ? Ask about a baby doctor (survey chief) and methods and pain medicine for labor, [...] 01/27/2014 Document Reviewed: 04/08/2014ExitCare? Patient Information ?2015 [employer], [place]. This information is not intended to replace advice given to you by your health care provider. Make sure you discuss any questions you have with your health care provider. Normal [facility] ED Patient Summaryon 017 ED Patient Summary (Inserted Image. Jeimy ble to display) [place] [id number] Patient Discharge Instructions Person Information Name: RICHARD SMITH Age: 21 Years Date: 09/14/2016 1:58 PMDischarge Diagnosis: Female pelvic pain; First trimester Primary Care Physician: Mohinder Jurado III, DO Provider InformationPrimary Provider: Abby Mcguire DO Decorative Greens Cutter:None The exam and treatment you received in the Emergency Department were for an urgent problem and are not intended as complete care. It is important that you follow up with a doctor, nurse practitioner, or physician?s claims assistant for ongoing care. If your symptoms [...] [address], [place] [address] Business (1) Within 3 to [...] 0.Comment: Pharmacy Information: Thank you for choosing [facility] P atient Education Materials: Pelvic PainFemale [...] Blood tests. HOME CARE INSTRUCTIONS? Only take lmbv-gpi-ovvsltg or prescription medicines for pain, discomfort, or [...] 06/08/2014 Document Reviewed: 05/13/2012ExitCare? Patient Information ?2014 [employer]. This information is not intended to replace advice given to you by your health care provider. Make sure you discuss any questions you have with your health care provider.Return if you have any problems or concerns. Call the Night Supervisor provided for a follow up appointment. First [...] Move your legs often if you must quill machine tender one place for a long time.? Avoid [...] coffee grounds. ? You are exposed to Norwegian measles and have never had them.? You are exposed to fifth disease or chickenpox.? You develop a severe headache.? You have shortness of breath.? You have any kind of trauma, such as from a fall or a car accident.Document Released: 01/16/2002 Document Revised: 06/08/2014 Document Reviewed: 12/02/2013ExitCare? Patient Information ?2015 [employer]. This information is not intended to replace [...] Discussing with your health care provider:? Prescription, xard-spo-qbddmvp, and herbal medicines that you take.? Any [...] care provider before taking any medicine, even egfg-pcr-lznoyot medicines. Some medicines are not safe to [...] Camembert, and chevre) or soft, blue-veined cheese (Welsh blue and Roquefort). ? Stay away from toxic chemicals like:? Insecticides.? Solvents (some household personal assistant or paint thinners).? Lead.? Mercury. ? Sexual [...] baby. ? Ask about a baby doctor (survey chief) and methods and pain medicine for labor, [...] 01/27/2014 Document Reviewed: 04/08/2014ExitCare? Patient Information ?2014 [employer]. This information is not intended to replace [...] [address] [place] [address] [facility] (1) Within 3 to 5 days Comments: Return to ED if symptoms worsen Prescriptions: [multivitamin, ( Multivitamins with Folic Acid 1 mg oral tablet)] Patient Signature Date Clinician/Nurse Signature _ Date 09/14/16 16:42:18 [facility] Progress Note-Nurseon 2016 Progress Note-Nurse Pelvic exam complete d per Dr. Mcguire with this RN present, specimens collected, tolerated procedure well. H2O given to patient, instructed to alert staff once she feels the urge to void, so that staff can alert ultrasound. Patient verbalizes understanding and relays that she is aware that she should not urinate prior to US. Normal [facility] U BetaHcg Qualon 09-14-2016 CHORIOGONADOTROPIN.BE TA SUBUNIT:SCNC:PT:URINE :QN: Positive [facility] Comment on above: Performed By: #### 2 [id number], [id number] ####[facility] [address] [place] [address] UA With Cult Reflexon 2016 BACTERIA:PRTHR:PT:URI NE SED:ORD:MICROSCOPY.LI GHT 1+ /HPF Abnormal Trace [facility] Comment on above: Performed By: #### 2 9234209, [id number] ####[facility] [address] [place] [address] Bilirubin Ql (U) Negative Normal Negative [facility] Comment on above: Performed By: #### 2 9922786, 19364120 ####[facility] [address] [place] [address] COLOR:TYPE:PT:URINE:N OM:AUTO YELLOW Normal Yellow [facility] Comment on above: Performed By: #### 2 0328872, 95614760 ####[address] [address] CRYSTALS:PRTHR:PT:URI NE SED:ORD:MICROSCOPY.LI GHT Present Normal [facility] Comment on above: Performed By: #### 2 7679014, [id number] ####[facility] [address] [place] [address] Erythrocytes (RBC) 0-3 Normal 0-3 [facility] Comment on above: Performed By: #### 2 0793014, 39457472 ####[facility] [address] [place] [address] GLUCOSE:MCNC:PT:URINE :QN:TEST STRIP Negative Normal Negative [facility] Comment on above: Performed By: #### 2 3348903, 74123632 ####[facility] [address] [place] [address] KETONES:MCNC:PT:URINE :QN:TEST STRIP Negative Normal Negative [facility] Comment on above: Performed By: #### 2 0113666, 74501035 ####[facility] [address] [place] [address] LEUKOCYTES:PRTHR:PT:U RINE:ORD:AUTOMATED Negative Normal Negative [facility] Comment on above: Performed By: #### 2 1309863, 22930852 ####[facility] [address] [facility] [place] [address] UA Spec Desc Random Urine Normal [facility] Comment on above: Performed By: #### 2 8718867, 96030755 ####[facility] [address] [place] [address] Urine, clarity SL CLOUDY Abnormal Clear [facility] Comment on above: Performed By: #### 2 3564543, 84999947 ####[facility] [address] [place] [address] Urine, hemoglobin presence TRACE Abnormal Negative [facility] Comment on above: Performed By: #### 2 4045337, 83814110 ####[facility] [address] [place] [address] Urine, leukocytes in sedmiment 0-5 Normal 0-5 [facility] Comment on above: Performed By: #### 2 0393087, 19093528 ####[facility] [address] [place] [address] Urine, nitrite presence Negative Normal Negative [facility] Comment on above: Performed By: #### 2 2819566, 63980531 ####[facility] [address] [place] [address] Urine, pH 8.0 [pH] Invalid Interpretation Code 5.0-9.0 [facility] Comment on above: Performed By: #### 2 2303350, 53456487 ####[facility] [address] [place] [address] Urine, protein Negative Normal Negative [facility] Comment on above: Performed By: #### 2 1337728, 51036915 ####[facility] [address] [place] [address] Urine, specific gravity 1.015 Invalid Interpretation Code 1.005-1.030 [facility] Comment on above: Performed By: #### 2 4096216, 31292154 ####[facility] [address] [place] [address] Urine, squamous cells in sediment 5-8 Normal 0-2 [facility] Comment on above: Performed By: #### 2 5629383, 44039150 ####[facility] [address] [place] [address] Urine, urobilinogen 0.2 {George'U}/dL Normal 0.0-1.0 [facility] Comment on above: Performed By: #### 2 9530525, 61434651 ####[facility] [address] [place] [address] US 1st Trimesteron 09-14-2016 US 1st Trimester [...] MD Transcribed by: SANDY Technologist: VIKAS Ernandez [facility] US Transvaginalon 09-14-2016 INR Coag RelTime (Bld) Exam Date/Time:09/14/2016 15:53 EDTReason for Exam:PainReportPlease refer to the transabdominal ultrasound report. FINAL REPORT Dictated: 09/14/2016 4:18 pm Samantha Lopez MD Signed (Electronic Signature): 09/14/2016 4:18 pm Signed by: Samantha Lopez MD Transcribed by: SANDY Technologist: VIKAS Ernandez [facility] eGFRon 09-14-2016 eGFR (black) mL/min/{1.73_m2} Normal >=59 [facility] Comment on above: Order Comment: Order added by Discern Expert. Result Comment: eGFR is race adjusted. AA=. Performed By: #### 2 5965037, 59953148 ####[facility] [address] [place] [address] eGFR (non-black) mL/min/{1.73_m2} Normal >=59 [facility] Comment on above: Order Comment: Order added by Discern Expert. Result Comment: Delicatessen Clerk alpa kidney disease could be indicated at eGFR's of less than 60 mL/min/1.73m2. Kidney failure is indicated at less than 15 mL/min/1.73m2. Performed By: #### 2 8546451, [id number] ####[facility] [address] [place] [address] Vital Signs Date Time Vital Sign Value Performing Clinician Facility 07-30-2024 13:54-0400 Body height 165.1 cm No Primary Care Physician [facility] 07-30-2024 13:54-0400 Body mass index (BMI) [Ratio] 41.2 kg/m2 No Primary Care Physician [facility] 07-30-2024 13:54-0400 Body weight 112.49 kg No Primary Care Physician [facility] 07-30-2024 13:53-0400 Body temperature 98.3 [degF] No Primary Care Physician [facility] 07-30-2024 13:53-0400 Respiratory rate 12 /min No Primary Care Physician [facility] 07-30-2024 13:53-0400 SaO2% (BldA) [Mass fraction] 99 % No Primary Care Physician [facility] 07-25-2024 17:34-0400 Diastolic blood pressure 70 mm[Hg] No Primary Care Physician [facility] 07-25-2024 17:34-0400 Heart rate 85 /min No Primary Care Physician [facility] 07-25-2024 17:34-0400 Systolic blood pressure 115 mm[Hg] No Primary Care Physician [facility] 07-25-2024 15:06-0400 Body height 165.1 cm No Primary Care Physician [facility] 07-25-2024 15:06-0400 Body mass index (BMI) [Ratio] 40.7 kg/m2 No Primary Care Physician [facility] 07-25-2024 15:06-0400 Body weight 111.13 kg No Primary Care Physician [facility] 07-25-2024 14:49-0400 Body temperature 98 [degF] No Primary Care Physician [facility] 07-25-2024 14:49-0400 Respiratory rate 14 /min No Primary Care Physician [facility] 07-25-2024 14:49-0400 SaO2% (BldA) [Mass fraction] 100 % No Primary Care Physician [facility] 07-23-2024 09:11-0400 Body mass index (BMI) [Ratio] 41.57 kg/m2 Mariana Hilario APRN.CNM Work Phone: [facility] 07-23-2024 09:11-0400 Body weight 111.58 kg Mariana Hilario APRN.CNM Work Phone: [facility] 07-23-2024 09:11-0400 Diastolic blood pressure 80 mm[Hg] Mariana Hilario APRN.CNM Work Phone: [facility] 07-23-2024 09:11-0400 Systolic blood pressure 124 mm[Hg] Mariana Hilario APRN.CNM Work Phone: [facility] 07-16-2024 10:07-0400 Body mass index (BMI) [Ratio] 41.07 kg/m2 Jenise Nieves MD Work Phone: [facility] 07-16-2024 10:07-0400 Body weight 110.22 kg Jenise Nieves MD Work Phone: [facility] 07-16-2024 10:07-0400 Diastolic blood pressure 82 mm[Hg] Jenise Nieves MD Work Phone: [facility] 07-16-2024 10:07-0400 Systolic blood pressure 124 mm[Hg] Jenise Nieves MD Work Phone: [facility] 07-02-2024 09:46-0400 Body mass index (BMI) [Ratio] 40.29 kg/m2 Elsa Plotts CLINICAL REVIEWER.CNM Work Phone: [facility] 07-02-2024 09:46-0400 Body temperature 98.71 [degF] Elsa Plotts CLINICAL REVIEWER.CNM Work Phone: [facility] Comment on above: tympanic 07-02-2024 09:46-0400 Body weight 108.14 kg Elsa Plotts CLINICAL REVIEWER.CNM Work Phone: [facility] 07-02-2024 09:46-0400 Diastolic blood pressure 70 mm[Hg] Elsa Plotts CLINICAL REVIEWER.CNM Work Phone: [facility] 07-02-2024 09:46-0400 Systolic blood pressure 126 mm[Hg] Elsa Plotts CLINICAL REVIEWER.CNM Work Phone: [facility] 06-18-2024 14:21-0400 Body mass index (BMI) [Ratio] 39.21 kg/m2 Janay Bhatti MD Work Phone: [facility] 06-18-2024 14:21-0400 Body weight 105.23 kg Janay Bhatti MD Work Phone: [facility] 06-18-2024 14:21-0400 Diastolic blood pressure 66 mm[Hg] Janay Bhatti MD Work Phone: [facility] 06-18-2024 14:21-0400 Systolic blood pressure 120 mm[Hg] Janay Bhatti MD Work Phone: [facility] 06-04-2024 09:58-0400 Body mass index (BMI) [Ratio] 39.38 kg/m2 Mariana Hilario CLINICAL REVIEWER.CNM Work Phone: [facility] 06-04-2024 09:58-0400 Body weight 105.69 kg Mariana Hilario CLINICAL REVIEWER.CNM Work Phone: [facility] 06-04-2024 09:58-0400 Diastolic blood pressure 72 mm[Hg] Mariana Hilario CLINICAL REVIEWER.CNM Work Phone: [facility] 06-04-2024 09:58-0400 Systolic blood pressure 116 mm[Hg] Mariana Hilario CLINICAL REVIEWER.CNM Work Phone: [facility] 05-26-2024 11:28-0400 Body mass index (BMI) [Ratio] 38.97 kg/m2 Eric Gaspar CLINICAL REVIEWER.DESTATICIZER FEEDER Work Phone: [facility] 05-26-2024 11:28-0400 Body temperature 98.49 [degF] Eric Gaspar CLINICAL REVIEWER.DESTATICIZER FEEDER Work Phone: [facility] 05-26-2024 11:28-0400 Body weight 104.6 kg Eric Gaspar CLINICAL REVIEWER.DESTATICIZER FEEDER Work Phone: [facility] 05-26-2024 11:28-0400 Diastolic blood pressure 72 mm[Hg] Eric Gaspar CLINICAL REVIEWER.DESTATICIZER FEEDER Work Phone: [facility] 05-26-2024 11:28-0400 Heart rate 96 /min Eric Gaspar CLINICAL REVIEWER.DESTATICIZER FEEDER Work Phone: [facility] 05-26-2024 11:28-0400 Respiratory rate 16 /min Eric Gaspar CLINICAL REVIEWER.DESTATICIZER FEEDER Work Phone: [facility] 05-26-2024 11:28-0400 SaO2% (BldA) [Mass fraction] 99 % Eric CLINICAL REVIEWER.DESTATICIZER FEEDER Work Phone: [facility] 05-26-2024 11:28-0400 Systolic blood pressure 122 mm[Hg] Eric Gaspar APRN.DESTATICIZER FEEDER Work Phone: [facility] 05-21-2024 09:58-0400 Body mass index (BMI) [Ratio] 38.53 kg/m2 Alfred Childress MD Work Phone: [facility] 05-21-2024 09:58-0400 Body weight 103.42 kg Alfred Childress MD Work Phone: [facility] 05-21-2024 09:58-0400 Diastolic blood pressure 74 mm[Hg] Alfred Childress MD Work Phone: [facility] 05-21-2024 09:58-0400 Systolic blood pressure 122 mm[Hg] Alfred Childress MD Work Phone: [facility] 04-22-2024 12:58-0400 Body mass index (BMI) [Ratio] 37.1 kg/m2 Jenise Nieves MD Work Phone: [facility] 04-22-2024 12:58-0400 Body weight 99.79 kg Jenise Nieves MD Work Phone: [facility] 04-22-2024 12:58-0400 Diastolic blood pressure 60 mm[Hg] Jenise Nieves MD Work Phone: [facility] 04-22-2024 12:58-0400 Systolic blood pressure 100 mm[Hg] Jenise Nieves MD Work Phone: [facility] 03-28-2024 10:21-0500 Body mass index (BMI) [Ratio] 35.92 kg/m2 John Banerjee MD Work Phone: [facility] 03-28-2024 10:21-0500 Body weight 96.62 kg John Banerjee MD Work Phone: [facility] 03-28-2024 10:21-0500 Diastolic blood pressure 64 mm[Hg] John Banerjee MD Work Phone: [facility] Comment on above: per OB visit immediately prior 03-28-2024 10:21-0500 Systolic blood pressure 116 mm[Hg] John Banerjee MD Work Phone: [facility] Comment on above: per OB visit immediately prior 03-28-2024 10:02-0500 Body mass index (BMI) [Ratio] 35.92 kg/m2 Mariana Hilario CLINICAL REVIEWER.CNM Work Phone: [facility] 03-28-2024 10:02-0500 Body weight 96.62 kg Mariana Hilario CLINICAL REVIEWER.CNM Work Phone: [facility] 03-28-2024 10:02-0500 Diastolic blood pressure 64 mm[Hg] Mariana Hilario CLINICAL REVIEWER.CNM Work Phone: [facility] 03-28-2024 10:02-0500 Systolic blood pressure 116 mm[Hg] Mariana Hilario CLINICAL REVIEWER.CNM Work Phone: [facility] 02-28-2024 09:54-0500 Body mass index (BMI) [Ratio] 35.08 kg/m2 Alfred Childress MD Work Phone: [facility] 02-28-2024 09:54-0500 Body weight 94.35 kg Alfred Childress MD Work Phone: [facility] 02-28-2024 09:54-0500 Diastolic blood pressure 68 mm[Hg] Alfred Childress MD Work Phone: [facility] 02-28-2024 09:54-0500 Systolic blood pressure 110 mm[Hg] Alfred Childress MD Work Phone: [facility] 02-14-2024 14:39-0500 Body mass index (BMI) [Ratio] 35.32 kg/m2 Jose Brink CLINICAL REVIEWER.DESTATICIZER FEEDER Work Phone: [facility] 02-14-2024 14:39-0500 Body temperature 98.29 [degF] Jose Brunsonmelissa CLINICAL REVIEWER.DESTATICIZER FEEDER Work Phone: [facility] 02-14-2024 14:39-0500 Body weight 95 kg Jose Brunsonmelissa CLINICAL REVIEWER.DESTATICIZER FEEDER Work Phone: [facility] 02-14-2024 14:39-0500 Diastolic blood pressure 72 mm[Hg] Jose Brunsonmelissa CLINICAL REVIEWER.DESTATICIZER FEEDER Work Phone: [facility] 02-14-2024 14:39-0500 Heart rate 100 /min Jose Brunsonmelissa CLINICAL REVIEWER.DESTATICIZER FEEDER Work Phone: [facility] 02-14-2024 14:39-0500 Respiratory rate 18 /min Jose Brunsonmelissa CLINICAL REVIEWER.DESTATICIZER FEEDER Work Phone: [facility] 02-14-2024 14:39-0500 SaO2% (BldA) [Mass fraction] 98 % Jose Brunsonmelissa CLINICAL REVIEWER.DESTATICIZER FEEDER Work Phone: [facility] 02-14-2024 14:39-0500 Systolic blood pressure 105 mm[Hg] Jose Brunsonmelissa CLINICAL REVIEWER.DESTATICIZER FEEDER Work Phone: [facility] 01-31-2024 08:33-0500 Body mass index (BMI) [Ratio] 34.74 kg/m2 Elsa Chaudhary CLINICAL REVIEWER.CNM Work Phone: [facility] 01-31-2024 08:33-0500 Body weight 93.44 kg Elsa Chaudhary CLINICAL REVIEWER.CNM Work Phone: [facility] 01-31-2024 08:33-0500 Diastolic blood pressure 60 mm[Hg] Elsa Plotts CLINICAL REVIEWER.CNM Work Phone: [facility] 01-31-2024 08:33-0500 Systolic blood pressure 100 mm[Hg] Elsa Chaudhary CLINICAL REVIEWER.CNM Work Phone: [facility] 12-28-2023 10:21-0500 Body mass index (BMI) [Ratio] 33.94 kg/m2 Susana Castillo MD Work Phone: [facility] 12-28-2023 10:21-0500 Body weight 91.29 kg Susana Castillo MD Work Phone: [facility] 12-28-2023 10:21-0500 Diastolic blood pressure 62 mm[Hg] Susana Castillo MD Work Phone: [facility] 12-28-2023 10:21-0500 Systolic blood pressure 100 mm[Hg] Susana Castillo MD Work Phone: [facility] 12-24-2023 09:23-0500 Body weight 86.18 kg Segundo Lopez DO Work Phone: [facility] 12-24-2023 09:23-0500 Diastolic blood pressure 73 mm[Hg] Segundo Lopez DO Work Phone: [facility] 12-24-2023 09:23-0500 Systolic blood pressure 117 mm[Hg] Segundo Lopez DO Work Phone: [facility] 12-24-2023 09:21-0500 Body temperature 97.5 [degF] Segundo Lopez DO Work Phone: [facility] 12-24-2023 09:21-0500 Heart rate 91 /min Segundo Lopez DO Work Phone: [facility] 12-24-2023 09:21-0500 Respiratory rate 18 /min Segundo Lopez DO Work Phone: [facility] 12-24-2023 09:21-0500 SaO2% (BldA) [Mass fraction] 98 % Segundo Lopez DO Work Phone: [facility] 12-07-2023 10:55-0400 Body height 164 cm Elkin Martinez APRN.DESTATICIZER FEEDER Work Phone: [facility] 12-07-2023 10:55-0400 Body mass index (BMI) [Ratio] 33.06 kg/m2 Elkin Martinez APRN.DESTATICIZER FEEDER Work Phone: [facility] 12-07-2023 10:55-0400 Body weight 88.91 kg Elkin Haury CLINICAL REVIEWER.DESTATICIZER FEEDER Work Phone: [facility] 12-07-2023 10:55-0400 Diastolic blood pressure 68 mm[Hg] Elkin Haury CLINICAL REVIEWER.DESTATICIZER FEEDER Work Phone: [facility] 12-07-2023 10:55-0400 Systolic blood pressure 118 mm[Hg] Elkin Haury CLINICAL REVIEWER.DESTATICIZER FEEDER Work Phone: [facility] 11-23-2023 10:38-0400 Body mass index (BMI) [Ratio] 32.95 kg/m2 Mariana Hilario CLINICAL REVIEWER.CNM Work Phone: [facility] 11-23-2023 10:38-0400 Body weight 87.54 kg Mariana Hilario CLINICAL REVIEWER.CNM Work Phone: [facility] 11-23-2023 10:38-0400 Diastolic blood pressure 76 mm[Hg] Mariana Hilario CLINICAL REVIEWER.CNM Work Phone: [facility] 11-23-2023 10:38-0400 Systolic blood pressure 114 mm[Hg] Mariana Hilario CLINICAL REVIEWER.CNM Work Phone: [facility] 11-21-2023 07:35-0400 Body mass index (BMI) [Ratio] 32.95 kg/m2 Puthy Chhay CLINICAL REVIEWER.DESTATICIZER FEEDER Work Phone: [facility] 11-21-2023 07:35-0400 Body weight 87.54 kg Puthy Chhay CLINICAL REVIEWER.DESTATICIZER FEEDER Work Phone: [facility] Comment on above: self report 11-21-2023 07:35-0400 Diastolic blood pressure 90 mm[Hg] Puthy Chhay CLINICAL REVIEWER.DESTATICIZER FEEDER Work Phone: [facility] Comment on above: self report 11-21-2023 07:35-0400 Systolic blood pressure 120 mm[Hg] Puthy Chhay CLINICAL REVIEWER.DESTATICIZER FEEDER Work Phone: [facility] Comment on above: self report 08-06-2023 07:23-0400 Body mass index (BMI) [Ratio] 34.66 kg/m2 Puthy Chhay CLINICAL REVIEWER.DESTATICIZER FEEDER Work Phone: [facility] 08-06-2023 07:23-0400 Body weight 92.08 kg Puthy Chhay CLINICAL REVIEWER.DESTATICIZER FEEDER Work Phone: [facility] Comment on above: self report 06-06-2023 10:01-0400 Body mass index (BMI) [Ratio] 37.73 kg/m2 Puthy Chhay CLINICAL REVIEWER.DESTATICIZER FEEDER Work Phone: [facility] 06-06-2023 10:01-0400 Body weight 100.25 kg Puthy Chhay CLINICAL REVIEWER.DESTATICIZER FEEDER Work Phone: [facility] 06-06-2023 10:01-0400 Diastolic blood pressure 76 mm[Hg] Puthy Chhay CLINICAL REVIEWER.DESTATICIZER FEEDER Work Phone: [facility] 06-06-2023 10:01-0400 Heart rate 73 /min Puthy Chhay CLINICAL REVIEWER.DESTATICIZER FEEDER Work Phone: [facility] 06-06-2023 10:01-0400 SaO2% (BldA) [Mass fraction] 95 % Puthy Chhay CLINICAL REVIEWER.DESTATICIZER FEEDER Work Phone: [facility] 06-06-2023 10:01-0400 Systolic blood pressure 113 mm[Hg] Puthy Chhay CLINICAL REVIEWER.DESTATICIZER FEEDER Work Phone: [facility] 06-05-2023 06:42-0400 Body height 165.1 cm [facility] 06-05-2023 06:42-0400 Body mass index (BMI) [Ratio] 37.2 kg/m2 [facility] 06-05-2023 06:42-0400 Body temperature 97.9 [degF] [facility] 06-05-2023 06:42-0400 Body weight 101.4 kg [facility] 06-05-2023 06:42-0400 Diastolic blood pressure 98 mm[Hg] [facility] 06-05-2023 06:42-0400 Heart rate 79 /min [facility] 06-05-2023 06:42-0400 Respiratory rate 18 /min [facility] 06-05-2023 06:42-0400 SaO2% (BldA) [Mass fraction] 98 % [facility] 06-05-2023 06:42-0400 Systolic blood pressure 133 mm[Hg] [facility] 04-16-2023 14:21-0400 Heart rate 102 /min Morelia Bogner PA-C Work Phone: [facility] 04-16-2023 14:10-0400 Body temperature 98.91 [degF] Morelia Bogner PA-C Work Phone: [facility] 04-16-2023 14:10-0400 Body weight 99.7 kg Morelia Bogner PA-C Work Phone: [facility] 04-16-2023 14:10-0400 Diastolic blood pressure 74 mm[Hg] Morelia Bogner PA-C Work Phone: [facility] 04-16-2023 14:10-0400 Respiratory rate 18 /min Morelia Bogner PA-C Work Phone: [facility] 04-16-2023 14:10-0400 SaO2% (BldA) [Mass fraction] 97 % Morelia Bogner PA-C Work Phone: [facility] 04-16-2023 14:10-0400 Systolic blood pressure 106 mm[Hg] Morelia Bogner PA-C Work Phone: [facility] 10-12-2022 08:34-0400 Body weight 92.08 kg Ed Vaz APRN.CNP Work Phone: [facility] 07-12-2022 11:34-0400 Body weight 92.44 kg Lupe Grant MD Work Phone: [facility] 07-12-2022 11:34-0400 Diastolic blood pressure 81 mm[Hg] Lupe Grant MD Work Phone: [facility] 07-12-2022 11:34-0400 Heart rate 94 /min Lupe Grant MD Work Phone: [facility] 07-12-2022 11:34-0400 Systolic blood pressure 116 mm[Hg] Lupe Grant MD Work Phone: [facility] 06-05-2022 08:15-0400 Body weight 94.35 kg Lavern Lim MD Work Phone: [facility] 06-05-2022 08:15-0400 Diastolic blood pressure 84 mm[Hg] Lavern Lim MD Work Phone: [facility] 06-05-2022 08:15-0400 Heart rate 91 /min Lavern Lim MD Work Phone: [facility] 06-05-2022 08:15-0400 SaO2% (BldA) [Mass fraction] 97 % Lavern Lim MD Work Phone: [facility] 06-05-2022 08:15-0400 Systolic blood pressure 110 mm[Hg] Lavern Lim MD Work Phone: [facility] 12-18-2021 11:45-0500 Body temperature 98.01 [degF] Jose Pendlemelissa CLINICAL REVIEWER.DESTATICIZER FEEDER Work Phone: [facility] 12-18-2021 11:45-0500 Body weight 105.42 kg Jose Brink CLINICAL REVIEWER.DESTATICIZER FEEDER Work Phone: [facility] 12-18-2021 11:45-0500 Diastolic blood pressure 76 mm[Hg] Jose Pendlemelissa CLINICAL REVIEWER.DESTATICIZER FEEDER Work Phone: [facility] 12-18-2021 11:45-0500 Heart rate 97 /min Jose Pendlemelissa CLINICAL REVIEWER.DESTATICIZER FEEDER Work Phone: [facility] 12-18-2021 11:45-0500 Respiratory rate 18 /min Jose Pendlemelissa CLINICAL REVIEWER.DESTATICIZER FEEDER Work Phone: [facility] 12-18-2021 11:45-0500 SaO2% (BldA) [Mass fraction] 98 % Jose Brink CLINICAL REVIEWER.DESTATICIZER FEEDER Work Phone: [facility] 12-18-2021 11:45-0500 Systolic blood pressure 130 mm[Hg] Jose Brink CLINICAL REVIEWER.DESTATICIZER FEEDER Work Phone: [facility] 08-19-2021 18:50-0400 Body temperature 97.2 [degF] Eric Hubert CLINICAL REVIEWER.DESTATICIZER FEEDER Work Phone: [facility] 08-19-2021 18:50-0400 Body weight 100.61 kg Eric Gaspar CLINICAL REVIEWER.DESTATICIZER FEEDER Work Phone: [facility] 08-19-2021 18:50-0400 Diastolic blood pressure 82 mm[Hg] Eric Hubert CLINICAL REVIEWER.DESTATICIZER FEEDER Work Phone: [facility] 08-19-2021 18:50-0400 Heart rate 82 /min Eric Hubert CLINICAL REVIEWER.DESTATICIZER FEEDER Work Phone: [facility] 08-19-2021 18:50-0400 Respiratory rate 18 /min Eric Hubert CLINICAL REVIEWER.DESTATICIZER FEEDER Work Phone: [facility] 08-19-2021 18:50-0400 SaO2% (BldA) [Mass fraction] 98 % Eric Hubert CLINICAL REVIEWER.DESTATICIZER FEEDER Work Phone: [facility] 08-19-2021 18:50-0400 Systolic blood pressure 126 mm[Hg] Eric Hubert CLINICAL REVIEWER.DESTATICIZER FEEDER Work Phone: [facility] 08-03-2021 14:45-0400 Body temperature 97.5 [degF] Storm Kinsel DO Work Phone: [facility] 08-03-2021 14:45-0400 Body weight 102.33 kg Storm Kinsel DO Work Phone: [facility] 08-03-2021 14:45-0400 Diastolic blood pressure 77 mm[Hg] Storm Kinsel DO Work Phone: [facility] 08-03-2021 14:45-0400 Heart rate 80 /min Storm Mueller DO Work Phone: [facility] 08-03-2021 14:45-0400 SaO2% (BldA) [Mass fraction] 98 % Storm Mueller DO Work Phone: [facility] 08-03-2021 14:45-0400 Systolic blood pressure 131 mm[Hg] Storm Mueller DO Work Phone: [facility] Encounters Encounter Date Encounter Type Care Provider Facility Start: 07-30-2024 End: 07-30-2024 ambulatory No Primary Care Physician [facility] Work Phone: Start: 07-30-2024 End: 07-30-[address] Jenise Nieves MD -[facility] Work Phone: Start: 07-27-2024 End: 07-27-2024 ambulatory Juana Perdomo RN [employer] Comment on above: Patient Update Start: 07-25-2024 End: 07-25-2024 ambulatory No Primary Care Physician [facility] Work Phone: Start: 07-25-2024 End: 07-25-[address] Jenise Nieves MD -[facility] Work Phone: Start: [...] Start: 07-23-2024 End: 07-23-2024 ambulatory KARON ODONNELL Facility:[facility] Start: 07-19-2024 End: 07-19-2024 ambulatory Nancy Shuttic [facility] [employer] Comment on above: feet swollen Start: 07-16-2024 End: 07-16-2024 Office outpatient visit 15 minutes Jenise Nieves MD Work Phone: OB/Gynecology Comment on above: 36 weeks gestation o f (HCC) (Primary Dx); Supervision of high risk in third trimester (HCC); History of pre-eclampsia Start: 07-16-2024 End: 07-16-2024 Patient encounter procedure Whi Tech 1 Supervisor Whipped Topping [facility] Maternal Medicine Comment on [...] End: 07-02-2024 Patient encounter procedure Elsa Chaudhary CLINICAL REVIEWER.CNM Work Phone: OB/Gynecology Comment on above: 34 weeks gestation o f (HCC) (Primary Dx); Supervision of high risk in third trimester (HCC); History of pre-eclampsia; Obesity affecting in third trimester, unspecified obesity type (HCC) Start: 07-02-2024 End: 07-02-2024 ambulatory ELSA CHAUDHARY Facility:[facility] Start: 07-01-2024 End: 07-01-2024 Telephone encounter Jenise [...] Start: 06-18-2024 End: 06-18-2024 ambulatory ALFRED CHILDRESS Facility:[facility] Start: 06-12-2024 End: 06-19-2024 ambulatory Elsa Chaudhary CLINICAL REVIEWER.CNM Work Phone: OB/Gynecology Comment on above: Maternity leave Start: 06-05-2024 End: 06-05-2024 Telephone encounter Jenise Cazares RN Maternal Medicine Comment on above: Office Helper Clerical - O ther ([employer]) Start: 06-04-2024 End: [...] Start: 06-04-2024 End: 06-04-2024 ambulatory MARIANADANY HILARIO Facility:[facility] Start: 05-26-2024 End: 05-26-2024 Patient encounter procedure Eric Gaspar APRN.DESTATICIZER FEEDER Work Phone: [facility] Comment on above: Acute otitis media, right (Primary Dx); URI, acute Start: 05-26-2024 End: 05-26-2024 ambulatory ERIC GASPAR Facility:[facility] Start: 05-23-2024 End: 07-23-2024 Follow-up encounter Alfred Childress MD Work Phone: OB/Gynecology Start: 05-21-2024 End: 05-21-2024 Patient encounter procedure Whi Tech 1 Supervisor Whipped Topping [facility] Maternal Medicine Comment on [...] Elevated TSH Start: 05-21-2024 End: 05-21-2024 ambulatory [facility] Facility:[facility] Start: 05-20-2024 End: 05-20-2024 ambulatory Elsa Chaudhary CLINICAL REVIEWER.CNM Work Phone: OB/Gynecology Comment on above: Nausea Start: 05-18-2024 End: 05-18-2024 ambulatory JENISE NIEVES Facility:[facility] Start: 05-18-2024 End: 05-18-2024 Emergency department patient visit [facility] Facility:[facility] Start: 04-22-2024 End: 04-22-2024 ambulatory [facility] Facility:[facility] Start: 04-22-2024 End: 04-22-2024 Office outpatient visit [...] Start: 04-01-2024 End: 04-02-2024 ambulatory Elsa Chaudhary CLINICAL REVIEWER.CNM Work Phone: OB/Gynecology Comment on above: Feet/legs Start: 03-31-2024 End: 03-31-2024 Telephone encounter Jenise Cazares RN Maternal Medicine Comment on above: Office Helper Clerical - O ther ([employer]) Start: 03-28-2024 End: 05-28-2024 Follow-up encounter Susaan Castillo MD Work Phone: OB/Gynecology Start: 03-28-2024 End: 03-31-2024 Telephone encounter Susana Castillo MD Work Phone: OB/Gynecology Comment on above: Results Start: 03-28-2024 End: 04-01-2024 ambulatory Yazmin Hall RN [employer] Comment on above: Lab & Test Results [...] Start: 02-28-2024 End: 02-28-2024 ambulatory ALFRED CHILDRESS Facility:[facility] Start: 02-28-2024 End: 02-28-2024 Patient encounter procedure Alfred Childress MD Work Phone: OB/Gynecology Comment on above: Encounter for superv ision of high risk in first trimester, antepartum (Primary Dx); Elevated TSH; 16 weeks gestation of Encounter for spohie faust screening for malformation using ultrasound (Primary Dx); Two vessel cord; Obesity affecting in first trimester, unspecified obesity type; 16 weeks gestation of Start: 02-28-2024 End: 02-28-2024 ambulatory ELSA CHAUDHARY Facility:[facility] Start: 02-20-2024 End: 02-20-2024 Telephone encounter Alfred Childress MD Work Phone: OB/Gynecology Comment on above: Question (OB Questio n) Start: 02-19-2024 End: 02-19-2024 Emergency department patient visit No Primary Care Physician Facility:[facility] Start: 02-14-2024 End: 02-14-2024 ambulatory [facility] Facility:[facility] Start: 02-14-2024 End: 02-14-2024 Office outpatient visit 15 minutes Jose Brink APRN.DESTATICIZER FEEDER Work Phone: [facility] Comment on above: Viral illness (Prima ry Dx) Start: 02-01-2024 End: 02-01-2024 Telephone encounter Elkin Martinez APRN.DESTATICIZER FEEDER Work Phone: OB/Gynecology Comment on above: Results Start: 01-31-2024 End: 01-31-2024 Telephone encounter Elsa Chaudhary APRN.CNMoisés Work Phone: [address] [place] [address] Comment on above: Orders Start: 01-31-2024 End: [...] Start: 01-20-2024 End: 01-25-2024 ambulatory Elkin Martinez APRN.DESTATICIZER FEEDER Work Phone: OB/Gynecology Comment on above: Fainting Start: 01-15-2024 End: 01-15-2024 ambulatory [facility] Facility:[facility] Start: 12-28-2023 End: 12-28-2023 ambulatory Supervisor Whipped Topping [facility]str [facility] Work Phone: OB/Gynecology Start: 12-28-2023 End: 12-28-2023 Patient encounter procedure Supervisor Whipped Topping Wstr [employer] Work Phone: OB/Gynecology Comment on above: Encounter for superv ision of high risk in first trimester, antepartum (Primary Dx); 7 weeks gestation of ; Thyroid disease Start: 12-24-2023 End: 12-24-2023 ambulatory Elkin Martinez APRN.DESTATICIZER FEEDER Work Phone: OB/Gynecology Comment on above: Er visit Start: 12-24-2023 End: 12-24-2023 Emergency department patient visit Segundo Lopez DO Work Phone: [facility] Comment on above: Threatened in early ([facility]) (Primary Dx) Start: 12-14-2023 End: 12-14-2023 ambulatory ELKIN MARTINEZ Facility:[facility] Start: 12-12-2023 End: 12-14-2023 Telephone encounter Elkin Martinez APRN.DESTATICIZER FEEDER Work Phone: OB/Gynecology Comment on above: Thyroid Problem Orders Start: 12-12-2023 End: 12-12-2023 ambulatory ELKIN MARTINEZ Facility:[facility] Start: 12-11-2023 End: 12-11-2023 Telephone encounter Nurse Supervisor [employer] Dustin Leeton Work Phone: Obstetrics/Gynecology Comment on above: PRAF Start: 12-10-2023 End: 12-12-2023 Telephone encounter Elkin Martinez APRN.DESTATICIZER FEEDER Work Phone: OB/Gynecology Comment on above: Results Start: 12-10-2023 End: 12-10-2023 ambulatory Elkin Martinez APRN.DESTATICIZER FEEDER Work Phone: OB/Gynecology Comment on above: Bloodwork Start: 12-07-2023 End: 12-07-2023 ambulatory KARON ODONNELL Facility:[facility] Start: 12-07-2023 End: 12-07-2023 Patient encounter procedure [...] Start: 11-23-2023 End: 11-23-2023 ambulatory KARON ODONNELL Facility:[facility] Start: 11-23-2023 End: 11-23-2023 Patient encounter procedure Mariana Hilario APRN.CNM Work Phone: OB/Gynecology Comment on above: Encounter for gyneco logical examination (general) (routine) with abnormal findings (Primary Dx); Screening for cervical cancer; Encounter for screening for human papillomavirus (HPV); Inverted nipple; Vaginal discharge; Encounter for surveillance of contraceptive pills Start: 11-23-2023 End: 11-23-2023 Patient encounter status Mariana Hilario APRN.CNM Work Phone: [facility] Start: 11-21-2023 End: 11-21-2023 ambulatory [...] 08-06-2023 Telemedicine consultation with patient Ed Vaz APRN.DESTATICIZER FEEDER Work Phone: Endocrinology Start: 06-20-2023 Telephone encounter Puthy Patient Services Clerk y CLINICAL REVIEWER.DESTATICIZER FEEDER Work Phone: Endocrinology Comment on above: Medication Authoriza tion (Phentermine) Start: 06-06-2023 End: 06-06-2023 Patient encounter procedure Ed Vaz CLINICAL REVIEWER.DESTATICIZER FEEDER Work Phone: Endocrinology Comment on above: Class 2 obesity with body mass index (BMI) of 37.0 to 37.9 in adult, unspecified obesity type, unspecified whether serious comorbidity present (Primary Dx); Obesity, Class I, BMI 30-34.9 Start: 06-05-2023 End: 06-05-2023 Emergency department patient visit [facility] Work Phone: Start: 05-29-2023 End: 05-29-2023 ambulatory Cadence Kayjosemanuel VELARDE Work Phone: Diabetic Education [facility] Comment on above: Class 2 obesity with body mass index (BMI) of 37.0 to 37.9 in adult, unspecified obesity type, unspecified whether serious comorbidity present Start: 05-29-2023 End: 05-29-2023 Telemedicine consultation with patient Cadence Camejo RD Work Phone: Diabetic Education [facility] Start: 05-14-2023 Telephone encounter Puthy Patient Services Clerk y CLINICAL REVIEWER.DESTATICIZER FEEDER Work Phone: Endocrinology Comment on above: Medication Authoriza tion (Lomaira) Start: 05-09-2023 Telephone encounter Puthy Patient Services Clerk y CLINICAL REVIEWER.DESTATICIZER FEEDER Work Phone: Endocrinology Comment on above: Appointment Start: 04-26-2023 E-mail encounter fro m caregiver Ed Lombardidenice CLINICAL REVIEWER.DESTATICIZER FEEDER Work Phone: [facility] Start: 04-26-2023 Follow-up encounter Puthy Patient Services Clerk y CLINICAL REVIEWER.DESTATICIZER FEEDER Work Phone: Endocrinology Comment on above: Follow up Start: 04-26-2023 End: 04-26-2023 ambulatory Ed Vaz CLINICAL REVIEWER.DESTATICIZER FEEDER Work Phone: Endocrinology Comment on above: Class 2 obesity with body mass index (BMI) of 37.0 to 37.9 in adult, unspecified obesity type, unspecified whether serious comorbidity present (Primary Dx) Start: 04-26-2023 End: 04-26-2023 Telemedicine consultation with patient Ed Vaz APRN.DESTATICIZER FEEDER Work Phone: [facility] Start: 04-16-2023 End: 04-16-2023 Office outpatient visit 25 minutes Morelia Chance PA-C Work Phone: [facility] Comment on above: Acute cough (Primary Dx); Exposure to the flu; Acute otitis media, left Start: 10-12-2022 E-mail encounter fro m caregiver Ed Vaz APRN.DESTATICIZER FEEDER Work Phone: [facility] Start: 10-12-2022 Follow-up encounter Putmicha Lombardiha y CLINICAL REVIEWER.[facility] Work Phone: Endocrinology Comment on above: Follow up Start: 10-12-2022 Telephone encounter Ed Bowman y CLINICAL REVIEWER.[facility] Work Phone: Endocrinology Comment on above: Appointment Start: 10-12-2022 End: 10-12-2022 ambulatory Putmicha Bowmany CLINICAL REVIEWER.DESTATICIZER FEEDER Work Phone: Endocrinology Comment on above: Class 1 obesity with body mass index (BMI) of 34.0 to 34.9 in adult, unspecified obesity type, unspecified whether serious comorbidity present (Primary Dx) Start: 10-12-2022 End: 10-12-2022 Telemedicine consultation with patient Ed Vaz APRN.[facility] Work Phone: [facility] Start: 09-09-2022 ambulatory Lupe Grant MD Work [...] take up to 3 weeks. //Pharmacist at [employer] [place] told pt they sent over forms to be completed by provider because they cannot fill prescriptions without the authorization. Patient can be contacted at [phone]./) Start: 07-17-2022 Telephone encounter Lupe barboza MD [...] on above: Refill Request Start: 03-02-2022 Refill Mariana Hilario APRN.CNM Work Phone: OB/Gynecology Comment on above: Refill Request Start: 02-25-2022 ambulatory Lupe Grant MD Work Phone: Endocrinology Comment on above: Medicine Start: 02-23-2022 End: 02-23-2022 ambulatory Lupe Grant MD Work Phone: Endocrinology Comment on above: Obesity, Class II, B MA 35-39.9 (Primary Dx); Impaired fasting glucose; PCOS (polycystic ovarian syndrome) Start: 02-23-2022 End: 02-23-2022 Telemedicine consultation with patient Lupe Grant MD Work Phone: [facility] Start: 02-13-2022 Letter encounter Jose Rashid od, MD Work Phone: [facility] Start: 02-03-2022 E-mail encounter fro m caregiver Mariana Hilario APRN.CNM Work Phone: [facility] Start: 02-03-2022 Follow-up encounter Mariana sierra APRN.CNM [...] with patient Mariana Hilario APRN.CNM Work Phone: [facility] Start: 01-10-2022 End: 01-10-2022 ambulatory Mariana Hilario APRN.CNM Work Phone: OB/Gynecology Comment on above: Unintended weight ga in (Primary Dx); Hot flashes; Screening cholesterol level; Secondary amenorrhea; Class 2 obesity due to excess calories without serious comorbidity with body mass index (BMI) of 39.0 to 39.9 in adult Start: 01-10-2022 End: 01-10-2022 Telemedicine consultation with patient Mariana Hilario APRN.CNM Work Phone: [facility] Start: 12-18-2021 End: 12-18-2021 Patient encounter procedure Jose Brink APRN.DESTATICIZER FEEDER Work Phone: [facility] Comment on above: Generalized abdomina l pain (Primary Dx); Upper back pain Start: 11-14-2021 Letter encounter Jose Rashid od, MD Work Phone: [employer] Start: 08-19-2021 End: 08-19-2021 Patient encounter procedure Eric Gaspar CLINICAL REVIEWER.DESTATICIZER FEEDER Work Phone: [facility] Comment on above: Suspected COVID-19 v irus infection (Primary Dx) Start: 08-14-2021 Letter encounter Jose Rashid od, MD Work Phone: [employer] Start: 08-03-2021 End: 08-03-2021 Patient encounter procedure Storm Mueller DO Work Phone: Family Practice Comment on above: Muscle spasm of righ t shoulder (Primary Dx) Start: 08-02-2021 Telephone encounter No Pcp Int [facility] Medicine [place] Comment on above: Extended Work Excuse Start: 08-02-2021 End: 08-02-2021 Subsequent hospital visit by physician [facility] [place] Work Phone: Radiology Comment on above: Acute pain of right shoulder [M25.511] Start: 03-02-2021 End: 03-02-2021 Subsequent hospital visit by physician Xr [facility] [place] Work Phone: Radiology Comment on above: Acute pain of left s houlder [M25.512] Start: 02-07-2021 End: 02-07-2021 Subsequent hospital visit by physician Xr [facility] Work Phone: Radiology Comment on above: Acute left ankle emely n [M25.572] Start: 06-27-2017 End: 06-28-2017 Ambulatory Venancio Riddle Facility:[facility] Start: 05-15-2017 End: 05-18-2017 Evaluation and management of inpatient Venancio Riddle Facility:[facility] Start: 03-17-2017 End: 03-17-2017 Ambulatory Venancio Riddle Facility:[facility] Start: 02-19-2017 End: 02-20-2017 Ambulatory Venancio Riddle Facility:[facility] Start: 10-30-2016 End: 10-31-2016 Ambulatory Venancio Riddle Facility:[facility] Start: 10-12-2016 End: 10-13-2016 Ambulatory Venancio Riddle Facility:[facility] Start: 09-27-2016 End: 09-27-2016 Emergency department patient visit Jenny Mcguire Facility:[facility] Start: 09-14-2016 End: 09-14-2016 Emergency department patient visit Jenny Mcguire Facility:[facility] Procedures Date Procedure Procedure Detail Performing Clinician [...] et rgnt non-auto w/o micrscp Mariana Hilario CLINICAL REVIEWER.CNM Work Phone: Start: 07-16-2024 Urnls dip stick/tabl [...] after 1st trimest 02/05 gestation Elsa Chaudhary CLINICAL REVIEWER.CNM Work Phone: Start: 01-31-2024 Us nuchal translucency 1st gestation Susana Castillo MD Work Phone: Start: 12-28-2023 Us pelvic nonobstetr ic real-time image complete Elkin Wilderpanfilo CLINICAL REVIEWER.DESTATICIZER FEEDER Work Phone: Start: 12-24-2023 Us uterus 1 [...] Speci men Type: URINE SPECIMEN Ordering Facility: [facility] Address: [address] [place] [address] Performed By: #### 2 [id number] #### [facility] CLIA [id number] [address] [place] [address] [place] Start: 12-07-2023 Us uterus l imited fetuses Elkin Martinez CLINICAL REVIEWER.DESTATICIZER FEEDER Work Phone: Start: 11-23-2023 Microscopic observat ion [Identifier] in Cervix by Cyto stain Segundo Lopez DO Work Phone: Start: 04-16-2023 INFLUENZA A&B MOLECU LAR (POC) Morelia Chance PA-C Work Phone: Start: 08-02-2021 Radex shoulder compl ete minimum 2 views Jose Brink CLINICAL REVIEWER.DESTATICIZER FEEDER Work Phone: Start: 03-02-2021 Radex shoulder compl ete minimum 2 views Merly Jefferson CLINICAL REVIEWER.DESTATICIZER FEEDER Work Phone: Start: 02-07-2021 Radex ankle complete minimum 3 views Aravind Varma CLINICAL REVIEWER.DESTATICIZER FEEDER Work Phone: Start: 06-16-2020 Adult depression scr eening assessment No Pcp Start: 09-13-2018 Follow-up visit Start: 03-28-2018 Microscopic observat ion [Identifier] in Cervix by Cyto stain Jose Haynes MD Work Phone: Plan of Treatment Date Care Activity Detail Author Start: 05-13-2043 Shingles (RZV) Vaccine (1 of 2) Shingles (RZV) Vaccine (1 of 2) [facility] Start: 05-13-2043 Zoster Vaccines (1 of 2) Zoster Vaccines (1 of 2) [facility] Start: 05-21-2034 Urine microalbumin profile DTaP,Tdap,Td Vaccine (7 - Td or Tdap) [facility] Start: 11-22-2028 Screening for malignant neoplasm of cervix Cervical Cancer Screening [facility] Start: 05-19-2027 DTaP/Tdap/Td Vaccines (6 - Td or Tdap) DTaP/Tdap/Td Vaccines (6 - Td or Tdap) [facility] Start: 05-19-2027 Tetanus vaccination Tetanus (Td or Tdap) [facility] Start: 05-19-2027 Urine microalbumin profile [facility] Start: 11-22-2026 Screening for malignant neoplasm of cervix [facility] Start: 12-07-2025 Screening for malignant neoplasm of cervix Pap Testing [facility] Start: 05-21-2025 Covid-19 Vaccine ( season) Covid-19 Vaccine ( season) [facility] Comment on above: Postponed from 10/07/2023 (Declined at t his time) Start: 11-24-2024 End: 11-24-2024 Patient encounter procedure 11/24/2024 2:45 PM EDT Office Visit OB/Gynecology [address] [address] Mariana Hilario APRN.CNM [address] [place] [address] annual OB/Gynecology Comment on above: annual Start: 08-27-2024 End: 08-27-2024 ambulatory 08/27/2024 4:30 PM EDT [facility] Endocrinology [address] [place] [address] Ed Vaz, CLINICAL REVIEWER.DESTATICIZER FEEDER [address] [place] [address] Check up Endocrinology Comment on above: Check up Start: 08-11-2024 End: 08-11-2024 Patient encounter procedure 08/11/2024 3:40 PM EDT Office Visit Endocrinology [address] [place] [address] John Banerjee MD [address] [place] [address] 2 month f/u-elevated TSH Endocrinology Comment on above: 2 month f/u-elevated TSH Start: 08-11-2024 End: 08-11-2024 Patient encounter procedure 08/11/2024 10:50 AM EDT Office Visit OB/Gynecology [address] [place] [address] Jenise Nieves MD [address] [place] [address] 1 week incision check OB/Gynecology Comment on above: 1 week incision check Start: 08-05-2024 ambulatory Ambulatory Facility:[facility] Start: 07-31-2024 End: 07-31-2024 Patient encounter procedure 07/31/2024 11:20 AM EDT Routine Office Visit OB/Gynecology [address] [place] [address] Eugenia Craft MD [address] [place] [address] OB - Pre Op C/S 08/05 @ [facility] OB/Gynecology Comment on above: OB - Pre Op C/S 08/05 @ [facility] Start: 07-31-2024 End: 07-31-2024 Patient encounter procedure OB/Gynecology Comment on above: OB - Pre Op C/S 08/04 @ [facility] NST Start: 07-30-2024 Nonstress test [facility] Start: 07-30-2024 Obstetric monitoring [facility] Start: 07-30-2024 Vital signs measurements [facility] Start: 07-30-2024 [facility] Start: 07-30-2024 End: 07-30-2024 Patient encounter procedure OB/Gynecology Comment on above: NST OB Routine Start: 07-30-2024 Patient discharge [facility] Start: 07-25-2024 Nonstress test [facility] Start: 07-25-2024 Obstetric monitoring [facility] Start: 07-25-2024 Vital signs measurements [facility] Start: 07-25-2024 [facility] Start: 07-25-2024 Bacteria identified in Urine by Culture Urine Culture [facility] Start: 07-25-2024 End: 07-25-2024 Patient encounter procedure 07/25/2024 12:00 PM EDT Office Visit Endocrinology [address] [place] [address] John Banerjee MD [address] [place] [address] 2 month f/u-elevated TSH Endocrinology Comment on above: 2 month f/u-elevated TSH Start: 07-25-2024 Patient discharge [facility] Start: 07-23-2024 End: 07-23-2024 Patient encounter procedure OB/Gynecology Comment on above: NST OB Routine Start: 07-16-2024 End: 07-16-2024 Patient encounter procedure OB/Gynecology Comment on above: NST OB Routine Growth 36w Start: 07-11-2024 End: 07-11-2024 Patient encounter procedure 07/11/2024 2:20 PM EDT Office Visit Endocrinology [address] [place] [address] John Banerjee MD [address] [place] [address] 2 month f/u-elevated TSH Endocrinology Comment on above: 2 month f/u-elevated TSH Start: 07-02-2024 End: 07-02-2024 Patient encounter procedure 07/02/2024 9:45 AM EDT Routine Office Visit OB/Gynecology [address] [place] [address] Elsa Chaudhary APRN.[facility] [address] [place] [address] OB Routine OB/Gynecology Comment on above: OB Routine Start: 06-24-2024 End: 06-24-2024 Patient encounter procedure 06/24/2024 9:00 AM EDT Office Visit Endocrinology [address] [place] [address] John Banerjee MD [address] [place] [address] 2 month f/u-elevated TSH Endocrinology Comment on above: 2 month f/u-elevated TSH Start: 06-18-2024 End: 06-18-2024 Patient encounter procedure Maternal Medicine Comment on above: Growth OB Routine Start: 06-09-2024 End: 06-09-2024 Patient encounter procedure 06/09/2024 9:00 AM EDT Office Visit Endocrinology [address] [place] [address] John Banerjee MD [address] [place] [address] 2 month f/u-elevated TSH Endocrinology Comment on above: 2 month f/u-elevated TSH Start: 06-04-2024 End: 06-04-2024 Patient encounter procedure 06/04/2024 9:45 AM EDT Routine Office Visit OB/Gynecology [address] [place] [address] Mariana Hilario APRN.CNM [address] [place] [address] OB Routine OB/Gynecology Comment on above: OB Routine Start: 06-03-2024 End: 06-03-2024 Patient encounter procedure 06/03/2024 2:20 PM EDT Office Visit Endocrinology [address] [place] [address] John Banerjee MD [address] [place] [address] 2 month f/u-elevated TSH Endocrinology Comment on above: 2 month f/u-elevated TSH Start: 05-26-2024 End: 05-26-2024 Patient encounter procedure 05/26/2024 11:40 AM EDT Office Visit Endocrinology [address] [place] [address] John Banerjee MD [address] [place] [address] 2 month f/u-elevated TSH Endocrinology Comment on above: 2 month f/u-elevated TSH Start: 05-21-2024 End: 08-20-2024 Protein/Creatinine [Mass Ratio] in Urine [facility] Work Phone: Comment on above: Expected: 05/21/2024, Expires: Start: 05-21-2024 End: 05-21-2024 ambulatory [place] [facility] Start: 05-21-2024 End: 05-21-2024 Patient encounter procedure Maternal Medicine Comment on above: Growth Growth/OB Start: 04-25-2024 End: 04-25-2024 Patient encounter procedure 04/25/2024 10:40 AM EDT Routine Office Visit OB/Gynecology [address] [place] [id number] Jenise Nieves MD [address] [place] [address] OB OB/Gynecology Comment on above: OB Start: 04-22-2024 End: 07-22-2024 ANEMIA REFLEX PANEL ANEMIA REFLEX PANEL Lab Routine 24 weeks gestation of Supervision of high risk in second trimester Expected: 04/22/2024, Expires: 07/22/2024 [facility] Comment on above: Expected: 04/22/2024, Expires: Start: 04-22-2024 End: 04-22-2025 GESTATIONAL GLUCOSE SCREEN, 1-HOUR, 50 GRAM, NON-FASTING GESTATIONAL GLUCOSE SCREEN, 1-HOUR, 50 GRAM, NON-FASTING Lab Routine 24 weeks gestation of Supervision of high risk in second trimester Screening for diabetes mellitus Expected: 04/22/2024, Expires: 04/22/2025 [facility] Work Phone: Comment on above: Expected: 04/22/2024, Expires: Start: 04-22-2024 End: 04-22-2025 SYPHILIS TREPONEMAL W/REFLEX SYPHILIS TREPONEMAL W/REFLEX Lab Routine 24 weeks gestation of Supervision of high risk in second trimester Expected: 04/22/2024, Expires: 04/22/2025 [facility] Comment on above: Expected: 04/22/2024, Expires: Start: 04-16-2024 End: 04-16-2024 ambulatory 04/16/2024 1:30 PM EDT Procedure Pediatric Cardiology [address] [place] [address] Reagan Bermeo MD [address] [place] [address] Single umbilical artery affecting management of mother, antepartum, single gesta... Pediatric Cardiology Comment on above: Single umbilical artery affecting manage ment of mother, antepartum, single gesta... Start: 04-16-2024 End: 04-16-2024 Patient encounter procedure 04/16/2024 1:30 PM EDT Office Visit Pediatric Cardiology [address] [place] [address] Single umbilical artery affecting management of mother, antepartum, single gesta... Pediatric Cardiology Comment on above: Single umbilical artery affecting manage ment of mother, antepartum, single gesta... Start: 03-28-2024 End: 03-28-2024 Patient encounter procedure Maternal Medicine Comment on above: Anatomy Scan OB Routine Start: 03-10-2024 End: 03-10-2024 Patient encounter procedure 03/10/2024 10:00 AM EST Office Visit Endocrinology [address] [place], [place] [id number] John Banerjee MD [address] [place] [address] Elevated TSH [R79.89] Endocrinology Comment on above: Elevated TSH [R79.89] Start: 03-07-2024 End: 03-07-2024 ambulatory 03/07/2024 9:30 AM EST Results Only [facility] [address] [place] [address] [facility] Start: 03-03-2024 End: 03-03-2024 ambulatory 03/03/2024 7:30 AM EST [facility] Endocrinology [address] [place] [address] Ed Vaz, ZANE.DESTATICIZER FEEDER [address] [place], [place] [id number] Check up Endocrinology Comment on above: Check up Start: 02-28-2024 End: 05-29-2024 Thyrotropin [Units/volume] in Serum or Plasma [facility] Work Phone: Comment on above: Expected: 02/28/2024, Expires: Start: 02-28-2024 End: 02-28-2024 Patient encounter procedure OB/Gynecology Comment on above: 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]; Obesity affecting in first trimester, unspecified obesity type [O99.211] Start: 02-20-2024 End: 02-20-2024 Patient encounter procedure 02/20/2024 9:30 AM EST Appointment Mammogram [address] [place] [address] US BREAST LTD LEFT Mammogram Comment on above: US BREAST LTD LEFT Start: 02-11-2024 End: 02-11-2024 Patient encounter procedure 02/11/2024 8:40 AM EST Office Visit Endocrinology [address] [place] [address] John Banerjee MD [address] [place] [address] Elevated TSH [R79.89] Endocrinology Comment on above: Elevated TSH [R79.89] Start: 02-08-2024 End: 02-08-2024 ambulatory 02/08/2024 2:00 PM EST Results Only [facility] [address] [place] [id number] [facility] Start: 01-31-2024 End: 01-30-2025 OBSTETRIC ULTRASOUND WHI OBSTETRIC ULTRASOUND WHI Anc Imaging Routine Two vessel cord Obesity affecting in first trimester, unspecified obesity type Expected: 01/31/2024, Expires: 01/30/2025 [facility] Work Phone: Comment on above: Expected: 01/31/2024, Expires: Start: 01-31-2024 End: 01-31-2024 Patient encounter procedure Maternal Medicine Comment on above: Nuchal OB Routine Start: 01-28-2024 End: 01-28-2024 Patient encounter procedure 01/28/2024 4:30 PM EST Routine Office Visit OB/Gynecology [address] [place] [address] Elsa Chaudhary APRN.CN [address] [place] [address] OB/vaginal itching OB/Gynecology Comment on above: OB/vaginal itching Start: 01-21-2024 End: 01-21-2024 Patient encounter procedure 01/21/2024 1:00 PM EST Office Visit Endocrinology [address] [place] [address] John Banerjee MD [address] [place] [address] Elevated TSH [R79.89] Endocrinology Comment on above: Elevated TSH [R79.89] Start: 01-11-2024 End: 01-11-2024 Patient encounter procedure 01/11/2024 1:00 PM EST Office Visit Endocrinology [address] [place] [address] John Banerjee MD [address] [place] [address] Elevated TSH [R79.89] Endocrinology Comment on above: Elevated TSH [R79.89] Start: 01-10-2024 End: 01-10-2024 ambulatory 01/10/2024 9:15 AM EST Results Only [facility] [address] [place] [id number] [facility] Start: 01-08-2024 End: 01-08-2024 Patient encounter procedure 01/08/2024 12:50 PM EST Routine Office Visit OB/Gynecology [address] [place] [address] Jenise Nieves MD [address] [place] [address] 2nd OB OB/Gynecology Comment on above: 2nd OB Start: 01-06-2024 End: 04-06-2024 Chromosome 21 trisomy [Presence] in Blood or Tissue by Cytogenetics [id number] PLUS Lab Routine Encounter for supervision of high risk in first trimester, antepartum Expected: 01/06/2024, Expires: 04/06/2024 [facility] Comment on above: Expected: 01/06/2024, Expires: Start: 12-28-2023 End: 12-27-2024 NUCHAL TRANSLUCENCY WHI NUCHAL TRANSLUCENCY WHI Anc Imaging Routine 7 weeks gestation of Encounter for supervision of high risk in first trimester, antepartum Thyroid disease Expected: 12/28/2023, Expires: 12/27/2024 [facility] Comment on above: Expected: 12/28/2023, Expires: Start: 12-28-2023 End: 12-27-2024 OBSTETRIC ULTRASOUND WHI OBSTETRIC ULTRASOUND WHI Anc Imaging Routine 7 weeks gestation of Encounter for supervision of high risk in first trimester, antepartum Thyroid disease Expected: 12/28/2023, Expires: 12/27/2024 [facility] Comment on above: Expected: 12/28/2023, Expires: Start: 12-28-2023 End: 03-28-2024 Thyrotropin [Units/volume] in Serum or Plasma THYROID STIMULATING HORMONE Lab Routine 7 weeks gestation of Encounter for supervision of high risk in first trimester, antepartum Thyroid disease Expected: 12/28/2023, Expires: 03/28/2024 [facility] Work Phone: Comment on above: Expected: 12/28/2023, Expires: Start: 12-28-2023 End: 12-06-2024 US Pelvis PELVIC US WHI Anc Imaging Routine Encounter for supervision of high risk in first trimester, antepartum with uncertain dates in first trimester Expected: 12/28/2023, Expires: 12/06/2024 [facility] Comment on above: Expected: 12/28/2023, Expires: Start: 12-28-2023 End: 12-28-2023 Patient encounter procedure 12/28/2023 10:20 AM EST Routine Office Visit OB/Gynecology [address] [place] [address] Susana Castillo MD [address] [place] [address] 2nd OB + US results OB/Gynecology Comment on above: 2nd OB + US results Start: 12-28-2023 End: 12-28-2023 ambulatory 12/28/2023 9:30 AM EST Procedure OB/Gynecology [address] [place] [address] Remote, Supervisor [employer] [address] [place] [address] O09.91 (ICD-10-CM) - Encounter for supervision of high risk in first trimester, antepartum OB/Gynecology Comment on above: O09.91 (ICD-10-CM) - Encounter for super vision of high risk in first trimester, antepartum Start: 12-18-2023 End: 12-18-2023 Patient encounter procedure 12/18/2023 3:30 PM EST Appointment Radiology [address] [place] [address] US BREAST LTD LEFT Radiology Comment on above: US BREAST LTD LEFT Start: 12-17-2023 End: 12-17-2023 ambulatory 12/17/2023 9:45 AM EST Results Only [facility] [address] [facility] [place] [address] [facility] Start: 12-14-2023 End: 12-14-2023 ambulatory 12/14/2023 9:15 AM EST Results Only [facility] [address] [facility] [facility] [place] [address] [facility] Start: 12-13-2023 End: 12-13-2023 ambulatory 12/13/2023 9:45 AM EST Results Only [facility] [address] [place] [address] [facility] Start: 12-12-2023 End: 12-12-2023 ambulatory 12/12/2023 9:15 AM EST Results Only [facility] [address] [place] [address] [facility] Start: 12-10-2023 End: 12-10-2023 ambulatory 12/10/2023 9:45 AM EST Results Only [facility] [address] [place] [address] [facility] Start: 12-08-2023 PAP TESTING PAP TESTING [facility] Start: 12-08-2023 Screening for malignant neoplasm of cervix [facility] Start: 12-08-2023 End: 12-08-2023 Patient encounter procedure 12/08/2023 11:50 AM EDT Immunization [facility] [address] [place] [address] Sylvia, Immunization Clinic Nurse [address] [place] [address] Flu shot [facility] [place] Comment on above: Flu shot Start: 12-07-2023 End: 03-07-2024 CARRIER SCREEN, STANDARD [facility] Comment on above: Expected: 12/07/2023, Expires: Start: 12-07-2023 End: 03-07-2024 Hemoglobin A1c in Blood [facility] Comment on above: Expected: 12/07/2023, Expires: Start: 12-07-2023 End: 03-07-2024 Hepatitis B virus surface Ag [Presence] in Serum [facility] Comment on above: Expected: 12/07/2023, Expires: Start: 12-07-2023 End: 03-07-2024 Hepatitis C virus Ab [Presence] in Serum [facility] Comment on above: Expected: 12/07/2023, Expires: Start: 12-07-2023 End: 03-07-2024 HIV 1+2 Ab [Presence] in Serum or Plasma by Immunoassay [facility] Comment on above: Expected: 12/07/2023, Expires: Start: 12-07-2023 End: 12-06-2024 OBSTETRIC ULTRASOUND WHI OBSTETRIC ULTRASOUND [facility] Anc Imaging Routine with uncertain dates in first trimester Expected: 12/07/2023, Expires: 12/06/2024 [facility] Comment on above: Expected: 12/07/2023, Expires: Start: 12-07-2023 End: 03-07-2024 Protein/Creatinine [Mass Ratio] in Urine [facility] Comment on above: Expected: 12/07/2023, Expires: Start: 12-07-2023 End: 03-07-2024 RUBELLA IGG ANTIBODY [facility] Comment on above: Expected: 12/07/2023, Expires: Start: 12-07-2023 End: 03-07-2024 SYPHILIS TREPONEMAL W/REFLEX [facility] Work Phone: Comment on above: Expected: 12/07/2023, Expires: Start: 12-07-2023 End: 03-07-2024 Thyrotropin [Units/volume] in Serum or Plasma [facility] Comment on above: Expected: 12/07/2023, Expires: Start: 12-07-2023 End: 03-07-2024 TYPE + SCREEN [facility] Comment on above: Expected: 12/07/2023, Expires: Start: 12-07-2023 End: 12-07-2023 Patient encounter procedure 12/07/2023 11:00 AM EDT Initial Office Visit OB/Gynecology [address] [place] [address] Elkin Martinez APRN.DESTATICIZER FEEDER [address] [place] [address] OB/Gynecology Start: 11-23-2023 End: 11-23-2023 Patient encounter procedure 11/23/2023 10:45 AM EDT Office Visit OB/Gynecology [address] [place] [address] Mariana Hilario APRN.CNM [address] [place] [id number] Check up OB/Gynecology Comment on above: Check up Start: 11-21-2023 End: 11-21-2023 ambulatory 11/21/2023 7:30 AM EDT [facility] [address] [place] [address] Ed Vaz APRN.DESTATICIZER FEEDER [address] [place] [address] Check up Endocrinology Comment on above: Check up Start: 10-07-2023 Covid-19 Vaccine ( season) Covid-19 Vaccine () [facility] Start: 10-07-2023 Influenza vaccination [facility] Start: 08-21-2023 End: 08-21-2023 Patient encounter procedure 08/21/2023 11:30 AM EDT Office Visit OB/Gynecology [address] [place] [address] Mariana Hilario APRN.CNM [address] [place] [address] Check up OB/Gynecology Comment on above: Check up Start: 08-06-2023 End: 08-06-2023 ambulatory 08/06/2023 7:30 AM EDT [facility] [address] [place] [address] Ed Vaz APRN.DESTATICIZER FEEDER [address] [place] [address] 2 months Endocrinology Comment on above: 2 months Start: 06-25-2023 End: 06-25-2023 Patient encounter procedure 06/25/2023 11:30 AM EDT Office Visit OB/Gynecology [address] [place], [place] [id number] Mariana Hilario APRN.CNM [address] [place] [address] annual OB/Gynecology Comment on above: annual Start: 06-18-2023 End: 06-18-2023 Patient encounter procedure 06/18/2023 10:00 AM EDT Office Visit Cardiology [address] [place] [id number] Lavern Lim MD [address] [facility], [address] [place] [address] 1 yr f/u Cardiology Comment on above: 1 yr f/u Start: 06-06-2023 End: 06-06-2023 Patient encounter procedure 06/06/2023 10:00 AM EDT Office Visit Endocrinology [address] [place] [address] Ed Vaz, ZANE.DESTATICIZER FEEDER [address] [place] [address] Check up Endocrinology Comment on above: Check up Start: 06-05-2023 [facility] Start: 05-13-2023 Screening for malignant neoplasm of cervix HPV Testing [facility] Start: 02-05-2023 Behavioral Health Screening Behavioral Health Screening [facility] Start: 02-05-2023 Depression Assessment Depression Assessment [facility] Start: 10-06-2022 Covid-19 Vaccine () Covid-19 Vaccine () [facility] Start: 10-06-2022 Influenza vaccination [facility] Start: 09-05-2022 End: 11-05-2022 Lipid 1996 panel - Serum or Plasma LIPID PANEL BASIC Lab Routine Pure hypercholesterolemia Expected: 09/05/2022, Expires: 11/05/2022 [facility] Work Phone: Comment on above: Expected: 09/05/2022, Expires: Start: 02-05-2022 DEPRESSION ASSESSMENT DEPRESSION ASSESSMENT [facility] Start: 01-10-2022 End: 02-05-2023 17-Hydroxyprogesterone [Mass/volume] in Serum or Plasma HYDROXYPROGESTERO-17 Lab Routine Secondary amenorrhea Expected: 01/10/2022, Expires: 03/12/2022 [facility] Work Phone: Comment on above: Expected: 01/10/2022, Expires: 3 Start: 01-10-2022 End: 03-12-2022 DHEA-S BLD DHEA-S BLD Lab Routine Secondary amenorrhea Expected: 01/10/2022, Expires: 03/12/2022 [facility] Work Phone: Comment on above: Expected: 01/10/2022, Expires: 3 Start: 01-10-2022 End: 03-12-2022 Lipid 1996 panel - Serum or Plasma LIPID PANEL BASIC Lab Routine Screening cholesterol level Expected: 01/10/2022, Expires: 03/12/2022 [facility] Work Phone: Comment on above: Expected: 01/10/2022, Expires: 3 Start: 01-10-2022 End: 03-12-2022 Prolactin [Mass/volume] in Serum or Plasma PROLACTIN BLD Lab Routine Secondary amenorrhea Expected: 01/10/2022, Expires: 03/12/2022 [facility] Work Phone: Comment on above: Expected: 01/10/2022, Expires: 3 Start: 01-10-2022 End: 03-12-2022 TESTOSTERONE, FREE AND TOTAL TESTOSTERONE, FREE AND TOTAL Lab Routine Secondary amenorrhea Expected: 01/10/2022, Expires: 03/12/2022 [facility] Work Phone: Comment on above: Expected: 01/10/2022, Expires: 3 Start: 01-10-2022 End: 03-12-2022 Triiodothyronine (T3) [Mass/volume] in Serum or Plasma T3 BLD Lab Routine Secondary amenorrhea Expected: 01/10/2022, Expires: 03/12/2022 [facility] Work Phone: Comment on above: Expected: 01/10/2022, Expires: Start: 11-05-2021 Influenza vaccination Influenza Vaccine (#1) [facility] Start: 10-06-2021 Influenza vaccination [facility] Start: 09-05-2021 Influenza vaccination Influenza Vaccine (#1) [facility] Start: 06-16-2021 Adult depression screening assessment DEPRESSION SCREENING [facility] Start: 03-28-2021 Screening for malignant neoplasm of cervix Pap Smear [facility] Start: 03-04-2021 COVID-19 VACCINE (3 - Booster for Pfizer series) COVID-19 VACCINE (3 - Booster for Pfizer series) [facility] Start: 02-05-2021 DEPRESSION ASSESSMENT DEPRESSION ASSESSMENT [facility] Start: 11-27-2020 COVID-19 VACCINE (3 - Booster for Pfizer series) COVID-19 VACCINE (3 - Booster for Pfizer series) [facility] Start: 11-27-2020 COVID-19 VACCINE (3 - Pfizer series) COVID-19 VACCINE (3 - Pfizer series) [facility] Start: 2014 Screening for malignant neoplasm of cervix HPV/Cotest [facility] Start: 05-13-2011 Anxiety Screening Anxiety Screening [facility] Start: 05-13-2011 Depression Screening Depression Screening [facility] Start: 2006 Varicella vaccination Varicella Vaccines (1 of 2 - 13+ 2-dose series) [facility] Start: 1993 Basic metabolic 2000 panel - Serum or Plasma Basic Metabolic Panel [facility] Start: 1993 Lipid panel Lipid Panel [facility] Start: 1993 Yearly Adult Physical Yearly Adult Physical [facility] 17-Hydroxyprogestero ne [Mass/volume] in Serum or Plasma HYDROXYPROGESTERO-17 Lab Routine Secondary amenorrhea 01/11/2022 8:53 AM EST [facility] Work Phone: Bacteria identified in Urine by Culture URINE CULTURE Microbiology Routine with uncertain dates in first trimester 12/07/2023 11:43 AM EDT [facility] BACTERIAL VAGINOSIS NAAT BACTERIAL VAGINOSIS NAAT Lab Routine Vaginal discharge Ordered: 11/23/2023 [facility] Comment on above: Ordered: 11/23/2023 BACTERIAL VAGINOSIS NAAT BACTERIAL VAGINOSIS NAAT Lab Routine Vaginal itching 01/31/2024 9:17 AM [facility] DARYA/TRICHOMONAS NAAT DARYA/TRICHOMONAS NAAT Lab Routine Vaginal discharge Ordered: 11/23/2023 [facility] Comment on above: Ordered: 11/23/2023 DARYA/TRICHOMONAS NAAT DARYA/TRICHOMONAS NAAT Lab Routine Vaginal itching 01/31/2024 9:17 AM [facility] Work Phone: Chlamydia trachomatis+Neisseria gonorrhoeae DNA [Presence] in Unspecified specimen by MARK ANTHONY with probe detection GONORRHEA/CHLAMYDIA NAAT Lab Routine with uncertain dates in first trimester 12/07/2023 11:43 AM EDT [facility] End: 12-06-2024 Choriogonadotropin.beta subunit [Units/volume] in Serum or Plasma HCG QUANTITATIVE Lab Routine Encounter for supervision of high risk in first trimester, antepartum with uncertain dates in first trimester 2x per week for 6 Occurrences starting 12/07/2023 until 12/06/2024 [facility] Comment on above: 2x per week for 6 Occurrences starting 1 02/05/2023 until 12/06/2024 COVID & INFLUENZA A/ B & RSV PCR, ROUTINE COVID & INFLUENZA A/B & RSV PCR, ROUTINE Microbiology Routine Viral illness 02/14/2024 2:51 PM [facility] Work Phone: DHEA-S BLD DHEA-S BLD Lab R outine Secondary amenorrhea 01/11/2022 8:53 AM [facility] Work Phone: End: 05-31-2023 ECG COMPLETE ECG COMPLETE ECG Routine Screening for ischemic heart disease 1 Occurrences starting 05/30/2022 until 05/31/2023 [facility] Work Phone: Comment on above: 1 Occurrences starting 05/30/2022 until 05/31/2023 End: 03-31-2025 ECHO ECHO Cardiology Routine Single umbilical artery affecting management of mother, antepartum, single gestation 21 weeks gestation of 1 Occurrences starting 03/31/2024 until 03/31/2025 [facility] Work Phone: Comment on above: 1 Occurrences starting 03/31/2024 until 03/31/2025 End: 12-24-2023 Extra Urine [employer] [facility] Work Phone: Comment on above: Once for 1 Occurrences starting 12/24/19 24 until 12/24/2023 End: 09-18-2024 nonstress test NON-STRESS TEST Procedures Routine Single umbilical artery affecting management of mother, antepartum, single gestation (HCC) High-risk in third trimester (HCC) Once per week for 4 Occurrences starting 05/21/2024 until 09/18/2024 [facility] Comment on above: Once per week for 4 Occurrences starting 05/21/2024 until 09/18/2024 Lipid 1996 panel - Serum or Plasma LIPID PANEL BASIC Lab Routine Screening cholesterol level 01/11/2022 8:53 AM [employer] [facility] Work Phone: End: 01-12-2025 MG Breast - bilateral Diagnostic MYESHA DIAGNOSTIC BILATERAL Radiology Routine Inversion of both nipples 1 Occurrences starting 12/14/2023 until 01/12/2025 [facility] Work Phone: Comment on above: 1 Occurrences starting 12/14/2023 until 01/12/2025 End: 09-18-2024 OBSTETRIC ULTRASOUND WHI OBSTETRIC ULTRASOUND [facility]I Anc Imaging Routine Single umbilical artery affecting management of mother, antepartum, single gestation (HCC) 28 weeks gestation of (HCC) High-risk in third trimester (HCC) Every 3 weeks for 3 Occurrences starting 05/21/2024 until 09/18/2024 [facility] Comment on above: Every 3 weeks for 3 Occurrences starting 05/21/2024 until 09/18/2024 PAP TEST PAP TEST Lab Nils baltazar Encounter for gynecological examination (general) (routine) with abnormal findings Screening for cervical cancer Encounter for screening for human papillomavirus (HPV) Ordered: 11/23/2023 [facility] Work Phone: Comment on above: Ordered: 11/23/2023 Patient Education [facility] Work Phone: Patient referral [facility] Work Phone: Prolactin [Mass/volu me] in Serum or Plasma PROLACTIN BLD Lab Routine Secondary amenorrhea 01/11/2022 8:53 AM [facility] Work Phone: ROUTINE, GR OUP B STREPTOCOCCUS BY PCR ROUTINE, GROUP B STREPTOCOCCUS BY PCR Microbiology Routine 36 weeks gestation of ([facility]) Supervision of high risk in third trimester ([facility]) 07/16/2024 10:28 AM EDT [facility] Work Phone: SARS-CoV-2 (COVID-19 ) RNA [Presence] in Respiratory specimen by MARK ANTHONY with probe detection 2019 CORONAVIRUS Microbiology Routine Suspected COVID-19 virus infection Ordered: 08/19/2021 [facility] Work Phone: Comment on above: Ordered: 08/19/2021 TESTOSTERONE, FREE A ND TOTAL TESTOSTERONE, FREE AND TOTAL Lab Routine Secondary amenorrhea 01/11/2022 8:53 AM [facility] Work Phone: End: 03-28-2025 Thyrotropin [Units/volume] in Serum or Plasma THYROID STIMULATING HORMONE Lab Routine 20 weeks gestation of Once per month for 8 Occurrences starting 03/28/2024 until 03/28/2025 [facility] Comment on above: Once per month for 8 Occurrences startin g 03/28/2024 until 03/28/2025 End: 03-28-2025 Thyroxine (T4) free [Mass/volume] in Serum or Plasma T4 FREE/FREE THYROXINE Lab Routine 20 weeks gestation of Once per month for 8 Occurrences starting 03/28/2024 until 03/28/2025 [facility] Work Phone: Comment on above: Once per month for 8 Occurrences startin g 03/28/2024 until 03/28/2025 Triiodothyronine (T3 ) [Mass/volume] in Serum or Plasma T3 BLD Lab Routine Secondary amenorrhea 01/11/2022 8:53 AM [facility] Work Phone: End: 12-24-2023 Urinalysis complete W Reflex Culture panel - Urine [facility] Work Phone: Comment on above: Once (Lab) for 1 Occurrences starting until 12/24/[address] [facility] End: 12-22-2024 US Breast - left limited US BREAST LTD LEFT Radiology Routine Inverted nipple 1 Occurrences starting 11/23/2023 until 12/22/2024 [facility] Comment on above: 1 Occurrences starting 11/23/2023 until 12/22/2024 End: 12-22-2024 US Breast - right limited US BREAST LTD RIGHT Radiology Routine Inverted nipple 1 Occurrences starting 11/23/2023 until 12/22/2024 [facility] Comment on above: 1 Occurrences starting 11/23/2023 until 12/22/2024 End: 02-10-2023 Us transvaginal US FEMALE PELVIS TRANSVAG Radiology Routine Secondary amenorrhea 1 Occurrences starting 01/10/2022 until 02/10/2023 [facility] Work Phone: Comment on above: 1 Occurrences starting 01/10/2022 until 02/10/2023 [facility] Immunizations Immunization Date Immunization Notes Care Provider Timothy [facility] 05-21-2024 tetanus toxoid, redu madina diphtheria toxoid, and acellular pertussis vaccine, adsorbed Whi [facility] 12-07-2023 influenza, seasonal, injectable Elkin Martinez APRN.CNP Work Phone: [facility] 09-08-2020 COVID-19 vaccine, ag e 12+ yr (PFIZER-BIONTAddFleet - PURPLE TOP) No Pcp [facility] 02-20-2020 Human Papillomavirus 9-valent vaccine No Pcp [facility] 11-25-2019 influenza, injectabl e, quadrivalent, contains preservative No Pcp [facility] 11-25-2019 influenza virus vacc ine, unspecified formulation Jose Haynes MD Work Phone: [facility] 09-01-2019 Human Papillomavirus 9-valent vaccine No Pcp [facility] 07-16-2019 Human Papillomavirus 9-valent vaccine No [facility] 05-18-2017 tetanus toxoid, redu madina diphtheria toxoid, and acellular pertussis vaccine, adsorbed No [facility] Work Phone: 03-14-1999 hepatitis B vaccine, pediatric or pediatric/adolescent dosage No [facility] Work Phone: 03-14-1999 poliovirus vaccine, inactivated No [facility] Work Phone: 07-30-1998 hepatitis B vaccine, pediatric or pediatric/adolescent dosage No [facility] Work Phone: 07-30-1998 measles, mumps and rubella virus vaccine No [facility] Work Phone: 06-21-1998 diphtheria, tetanus toxoids and acellular pertussis vaccine, unspecified formulation No [facility] Work Phone: 06-21-1998 diphtheria, tetanus toxoids and pertussis vaccine No [facility] 06-21-1998 hepatitis B vaccine, pediatric or pediatric/adolescent dosage No [facility] Work Phone: 06-21-1998 measles, mumps and rubella virus vaccine No [facility] Work Phone: 06-21-1998 poliovirus vaccine, inactivated No [facility] 06-21-1998 trivalent poliovirus vaccine, live, oral No [facility] Work Phone: 06-28-1994 diphtheria, tetanus toxoids and acellular pertussis vaccine, unspecified formulation No [facility] Work Phone: 06-28-1994 diphtheria, tetanus toxoids and pertussis vaccine No [facility] 06-28-1994 haemophilus influenz ae type b vaccine, conjugate unspecified formulation No [facility] 06-28-1994 haemophilus influenz ae type b vaccine, PRP-T conjugate No [facility] Work Phone: 1993 diphtheria, tetanus toxoids and acellular pertussis vaccine, unspecified formulation No [facility] Work Phone: 1993 diphtheria, tetanus toxoids and pertussis vaccine No [facility] 1993 haemophilus influenz ae type b vaccine, conjugate unspecified formulation No [facility] 1993 haemophilus influenz ae type b vaccine, PRP-T conjugate No [facility] Work Phone: 1993 poliovirus vaccine, inactivated No [facility] 1993 trivalent poliovirus vaccine, live, oral No [facility] Work Phone: 1993 diphtheria, tetanus toxoids and acellular pertussis vaccine, unspecified formulation No [facility] Work Phone: 1993 diphtheria, tetanus toxoids and pertussis vaccine No [facility] 1993 haemophilus influenz ae type b vaccine, conjugate unspecified formulation No [facility] 1993 haemophilus influenz ae type b vaccine, PRP-T conjugate No [facility] Work Phone: 1993 poliovirus vaccine, inactivated No [facility] 1993 trivalent poliovirus vaccine, live, oral No [facility] Work Phone: Payers Date Payer Category Payer Self-pay [id number] 2018 Medicaid [employer] [id number] 2018-Present [phone] [address] [place] [address] Medicaid [id number] 2018 Medicaid [id number] 2017 Medicaid (Managed Care) [facility] [id number] 2017 Private Health Insurance MEDPAY [id number] 2017 Unknown MEDPAY MEDPAY xx [id number] 2017-Present na [facility] [place] [address] Indemnity [id number] 2017 Unknown MEDPAY MEDPAY xx [id number] 2017-Present na [address] [place] [address] Indemnity [id number] 2017 Unknown [id number] 2016 Medicaid [id number] 1993 Unknown [id number] Unknown [id number] Unknown [id number] Unknown [id number] Social History Date Type Detail Facility Start: 03-28-2018 End: 02-19-2024 Tobacco smoking status KSIS Never smoked tobacco [facility] Start: 08-02-2021 End: 07-23-2024 Alcohol intake Ex-drinker (finding) [facility] Start: 08-15-2019 End: 04-01-2021 History SDOH Alcohol Frequency 1 [facility] Start: 04-01-2021 History SDOH Alcohol Std Drinks 98 [facility] Start: 02-01-2015 History SDOH Alcohol Comment social [facility] Start: 04-01-2021 History SDOH Social Connections Phone 5 [facility] Start: 04-01-2021 History SDOH Social Connections Membership 2 [facility] Start: 04-01-2021 History SDOH Social Connections Living 8 [facility] Start: 04-01-2021 History SDOH Physical Activity DPW 3 [facility] Start: 08-15-2019 Education 12 [facility] Start: 1993 Sex Assigned At Not on file [facility] Start: 01-07-2021 End: 12-24-2023 Exposure to SARS-CoV-2 (event) Not sure [facility] Work Phone: Start: 03-28-2018 End: 09-19-2021 Tobacco use and exposure Smokeless tobacco non-user [facility] Start: 05-09-2018 Alcohol intake Current non-drinker of alcohol (finding) [facility] Start: 04-01-2021 End: 04-19-2023 History of Social function [facility] Start: 04-01-2021 End: 04-19-2023 Social connection and isolation panel [facility] Do you belong to any clubs or organizations such as yazidi groups, unions, fraternal or athletic groups, or school groups? No [facility] Attends Club or Organization Meetings Not on file [facility] Are you now , , , , never or living with a partner? Living with partner [facility] How often to you hav e a drink containing alcohol? Never [facility] Do you feel stress - tense, restless, nervous, or anxious, or unable to sleep at night because your mind is troubled all the time - these days [OSQ] To some extent [facility] (I/We) worried whechriss er (my/our) food would run out before (I/we) got money to buy more. Never true [facility] Start: 06-05-2023 Tobacco smoking status NHIS Unknown if ever smoked [facility] Start: 05-29-2020 None [facility] Start: 05-29-2020 With Family [facility] Start: 1995 Sex Assigned At Female [facility] Do you feel stress - tense, restless, nervous, or anxious, or unable to sleep at night because your mind is troubled all the time - these days [OSQ] Rather much [facility] Start: 12-04-2023 Education 13 [facility] Start: 10-30-2023 [facility] Goals Date Patient Goal Desired Activity /State Personal health goal Functional Status Date Assessment Result Facility 05-18-2024 Are you deaf, or do you have serious difficulty hearing No 05/18/2024 4:03 PM EDSusana Dickinson RN No [facility] 05-18-2024 Are you blind, or do you have serious difficulty seeing, even when wearing glasses No 05/18/2024 4:03 PM Susana Love RN No [facility] 05-18-2024 Do you have serious difficulty walking or climbing stairs No 05/18/2024 4:03 PM Susana Love RN No [facility] 05-18-2024 Do you have difficul ty dressing or bathing No 05/18/2024 4:03 PM EDSusana Dickinson RN [facility] 05-18-2024 Because of a physica l, mental, or emotional condition, do you have difficulty doing errands alone such as visiting a physician's office or shopping No 05/18/2024 4:03 PM Susana Love RN No [facility] 12-15-2013 Are you deaf, or do you have serious difficulty hearing No 12/15/2013 4:15 PM Belem Haynes Ma No [facility] 12-15-2013 Are you blind, or do you have serious difficulty seeing, even when wearing glasses No 12/15/2013 4:15 PM Belem Haynes Ma No [facility] 12-15-2013 Do you have serious difficulty walking or climbing stairs No 12/15/2013 4:15 PM Belem Haynes Ma No [facility] 12-15-2013 Do you have difficul ty dressing or bathing No 12/15/2013 4:15 PM NGUYỄN Belem Frost Ma No [facility] 12-15-2013 Because of a physica l, mental, or emotional condition, do you have difficulty doing errands alone such as visiting a physician's office or shopping No 12/15/2013 4:15 PM Belem Haynes Ma No [facility] Mental Status Date Assessment Result Facility 05-18-2024 Because of a physica l, mental, or emotional condition, do you have serious difficulty concentrating, remembering, or making decisions No 05/18/2024 4:03 PM EDT Susana Andrew RN No [facility] 12-15-2013 Because of a physica l, mental, or emotional condition, do you have serious difficulty concentrating, remembering, or making decisions No 12/15/2013 4:15 PM NGUYỄN GalvinBelem purdy Ma No [facility] Clinical Notes 11-03-2019 to 07-27-2024 [...] as 131/86 1500 Planned to Deliver at [facility] Outcome: Patient warm conferenced to main campus router operator to assist patient in connecting to OB aviation mechanic for Mariana Hilario. [facility] 07-27-2024 Miscellaneous Notes Formattin g of this note might be different from the original. Reason for Call: 38 weeks , feet swelling, toes feels like needles, still cramping since Sunday Unsure if yg issa or contractions Denies vaginal bleeding, confirms vaginal discharge Denies vision changes / headache Reports BP as 131/86 1500 Planned to Deliver at [facility] Outcome: Patient warm conferenced to main campus router operator to assist patient in connecting to OB aviation mechanic for Mariana Hilario. documented in this encounter [facility] 07-25-2024 Evaluation note Diagnosis Onset Date Resolution 37 weeks gestation of acute July 25, 2024 2:20pm Threatened labor at term acute July 25, 2024 2:20pm [facility] Work Phone: 1(648) 650-994206-18-2025 Progress note* Quick Notes - Mariana Hilario [...] RTO in one week Mariana Hilario APRN.CNM [facility]06-18-2025 Miscellaneous Notes* Quick Notes - [...] week Mariana Hilario APRN.CNM documented in this encounterCoshocton Regional Medical Center06-18-2025 Instructions* Patient Instructions* Alan Haynes MA - 07/23/2024 9:12 AM EDT SEQUENTIAL SCREENINGS The [facility] offers sequential screenings for women [...] testing. It will require an appointment withour database software technician. This is not an ultrasound performed [...] the above symptoms, contact our office at [phone] and ask to speak with anurse. After hours, you can call doctors registry at [phone] OR call [facility] at [phone] ask to have the doctor aviation mechanic paged. If you consider this an emergency, dial 9-1-9 or go to your nearest emergency department. NEED HELP? Are you dealing with a violent or abusive relationship? Are you a victim of rape or sexual assult? Call [facility] ([place]) 24 hour Crisis Hotline: 508.904.4220 or 526-550-0038. MANUAL Your Guide to a Healthy manual is now on-line. Visit [email or web address] to download your free copy documented in this encounterCoshocton Regional Medical Center06-14-2025 Telephone encounter Note * Telephone Encounter - Nancy Alston LPN - 07/19/2024 9:20 PM EDT Patient calling regarding feet swelling. Conferenced to [facility] [ ] to speak with provider aviation mechanic for Santana Lane. Nancy Alston LPN [facility]06-14-2025 Miscellaneous Notes* Telephone Encounter - Nancy Alston LPN - 07/19/2024 9:20 PM EDT Patient calling regarding feet swelling. Conferenced to [facility] [ ] to speak with provider aviation mechanic for Santana Lane. Nancy Alston LPN documented in this encounterCoshocton [facility] Center06-11-2025 Telephone encounter Note * Telephone Encounter - Jenise Walker RN - 07/16/2024 4:58 PM EDT Ok to move to 7/1 per JG. Will call surgery in the AM. Jenise Walker RN [facility]06-11-2025 Miscellaneous Notes* Telephone Encounter - Jenise Walker RN - 07/16/2024 4:58 PM EDT Ok to move to 7/1 per JG. Will call surgery in the AM. Jenise Walker RN * Telephone Encounter - Jenise Walker RN - 07/16/2024 3:55 PM EDT KJ is aviation mechanic and the noon slot is open. Jenise Walker RN documented in this encounterCoshocton [facility] Medical Center06-11-2025 Telephone encounter Note * Telephone Encounter - Jenise Walker RN - 07/16/2024 3:55 PM EDT KJ is aviation mechanic and the noon slot is open. Jenise Walker RN [facility]06-11-2025 Note Indication Evaluation of growth, [...] 3 oz EFW by: Hadlock (HC-AC-FL) Extended Compression Molding Machine Tender 5.8 mm Extremities / Bony Struc FL [...] RDMS, RVT Read By: Cadence Bloom M.D.MATERNAL [id number] Progress note* Quick Notes - Jenise Nieves [...] URINE OB DIP B/O Jenise Nieves MD [facility]06-11-2025 Miscellaneous Notes* Quick Notes - [...] B/O Jenise Nieves MD documented in this encounterCoshocton Regional Medical Center06-11-2025 Instructions* Patient Instructions* Gypsy Mart LPN - 07/16/2024 10:04 AM EDT SEQUENTIAL SCREENINGS The [facility] offers sequential screenings for women [...] testing. It will require an appointment withour database software technician. This is not an ultrasound performed [...] the above symptoms, contact our office at [phone] and ask to speak with anurse. After hours, you can call doctors registry at [phone] OR call [facility] at [phone] ask to have the doctor aviation mechanic paged. If you consider this an emergency, dial 91-2 or go to your nearest emergency department. NEED HELP? Are you dealing with a violent or abusive relationship? Are you a victim of rape or sexual assult? Call [facility] ([place]) 24 hour Crisis Hotline: 388.159.4428 or 037-154-7986. MANUAL Your Guide to a Healthy manual is now on-line. Visit [email or web address] to download your free copy documented in this encounterCoshocton Regional Medical Center06-04-2025 Telephone encounter Note * Telephone [...] to discuss with employer. Elsa Chaudhary APRN.CNM [facility] Work Phone: 1(203) 196-325606-04-2025 Miscellaneous Notes* Telephone Encounter - Elsa Chaudhary [...] paperwork. Alan Haynes MA documented in this encounterCoshocton Regional Medical Center06-04-2025 Telephone encounter Note * Telephone Encounter - Alan Haynes MA - 07/09/2024 3:37 PM EDT Received FMLA paperwork. Alan Haynes MA [facility]05-28-2025 Progress note* Quick Notes - [...] when to call office Elsa Chaudhary APRN.CNM [facility]05-28-2025 Miscellaneous Notes* Quick Notes - [...] office Elsa Chaudhary APRN.CNM documented in this encounterCoshocton Regional Medical Center05-28-2025 Instructions* Patient Instructions* Gypsy Mart LPN - 07/02/2024 9:39 AM EDT SEQUENTIAL SCREENINGS The [facility] offers sequential screenings for women [...] testing. It will require an appointment withour database software technician. This is not an ultrasound performed [...] the above symptoms, contact our office at [phone] and ask to speak with anurse. After hours, you can call doctors registry at [phone] OR call [facility] at [phone] ask to have the doctor aviation mechanic paged. If you consider this an emergency, dial 91-5 or go to your nearest emergency department. NEED HELP? Are you dealing with a violent or abusive relationship? Are you a victim of rape or sexual assult? Call [facility] ([place]) 24 hour Crisis Hotline: 805.222.3838 or 527-660-8145. MANUAL Your Guide to a Healthy manual is now on-line. [email or web address] to download your free copy documented in this encounterCoshocton Regional Medical Center05-27-2025 Telephone encounter Note * Telephone Encounter - Jenise Nieves MD - 07/01/2024 12:08 PM EDT agree [facility] Work Phone: [phone] Miscellaneous Notes* Telephone Encounter - Jenise Nieves [...] SHANE. 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 States she will just keep her appointment for tomorrow. Jenise Walker RN documented in this encounterCoshocton Regional Medical Center05-27-2025 Telephone encounter Note * Telephone [...] SHANE. 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 States she will just keep her appointment for tomorrow. Jenise Walker RN [facility]05-15-2025 Telephone encounter Note* Telephone Encounter - Elsa Chaudhary APRN.CNM - 06/19/2024 4:52 PM EDT Unfortunately, there is not a medical indication or reason for her to be written off of work. That being said, she can discuss an early JUAN DIEGO with her HR department. Elsa Chaudhary APRN.CNM [facility] Work Phone: 1(668) 305-275105-15-2025 Miscellaneous Notes* Telephone Encounter - Elsa Chaudhary [...] placed to Pt to get additional information re:[employer] message. Pelvic area/feet are increasingly sore after [...] understanding. Zohra Cortés RN documented in this encounterCoshocton Regional Medical Center05-14-2025 Note Indication Evaluation of growth [...] 6 oz EFW by: Hadlock (HC-AC-FL) Extended Compression Molding Machine Tender 4.9 mm Extremities / Bony Struc FL [...] Beckwith RDMS Read By: Florina Lo M.D.MATERNAL [id number] Progress note* Quick Notes - Janay Hugo [...] affecting management of mother, antepartum, single gestation ([facility]) Growth us q4 weeks 32 weeks gestation of ([facility]) Kick counts and labor reviewed Janay Ballesteros MD [facility]05-14-2025 Miscellaneous Notes* Quick Notes - [...] reviewed Janay Ballesteros MD documented in this encounterCoshocton Regional Medical Center05-08-2025 Telephone encounter Note * Telephone Encounter - Zohra Cortés RN - 06/12/2024 4:53 PM EDT Call placed to Pt to get additional information re:[employer] message. Pelvic area/feet are increasingly sore after [...] visit. Pt voiced understanding. Zohra Cortés RN [facility]05-01-2025 Telephone encounter Note* Telephone Encounter - Jenise Cazares RN - 06/05/2024 8:35 AM EDT 3rd risk assessment form submitted 06/05/2024. Jenise Cazares RN [facility]05-01-2025 Miscellaneous Notes* Telephone Encounter - Jenise Cazares RN - 06/05/2024 8:35 AM EDT 3rd risk assessment form submitted 06/05/2024. Jenise Cazares RN documented in this encounterCoshocton Regional Medical Center04-30-2025 Progress note* Quick Notes - [...] RTO in 2 weeks Mariana Hilario APRN.CNM [facility]04-30-2025 Miscellaneous Notes* Quick Notes - [...] weeks Mariana Hilario APRN.CNM documented in this encounterCoshocton Regional Medical Center04-30-2025 NoteHNO ID: [id number] Author: MARIANA HILARIO APRN.CNM Service: ? Author Type: Associate Professor Type: Progress Notes Filed: 06/04/2024 11:53 Note [...] 8. History of anxiety -No medication, coping well.[facility]04-30-2025 History of Present illness Narrative* Mariana [...] -No medication, coping well. documented in this encounterCoshocton Regional Medical Center04-30-2025 Instructions* Patient Instructions* Alan Haynes MA - 06/04/2024 9:55 AM EDT SEQUENTIAL SCREENINGS The [facility] offers sequential screenings for women [...] testing. It will require an appointment withour database software technician. This is not an ultrasound performed [...] the above symptoms, contact our office at [phone] and ask to speak with anurse. After hours, you can call [employer] registry at [phone] OR call [facility] at [phone] ask to have the doctor aviation mechanic paged. If you consider this an emergency, dial 91-0 or go to your nearest emergency department. NEED HELP? Are you dealing with a violent or abusive relationship? Are you a victim of rape or sexual assult? Call [facility] ([place]) 24 hour Crisis Hotline: 181.301.4825 or 337-114-9391. MANUAL Your Guide to a Healthy manual is now on-line. Visit [email or web address] to download your free copy documented in this encounterCoshocton Regional Medical Center04-21-2025 NoteHNO ID: [id number] Author: ERIC GASPAR APRN.DESTATICIZER FEEDER Service: ? Author Type: Nurse Practitioner Type: [...] Normal breath sounds. Musculoskeletal: (more content not included)...[facility]04-21-2025 History of Present illness Narrative* Eric Gaspar APRN.DESTATICIZER FEEDER - 05/26/2024 11:36 AM EDT [facility] [employer] [...] sooner if worsening of symptoms Eric Gaspar APRN.DESTATICIZER FEEDER History and Record Review External record(s) reviewed: prior outpatient record. Disposition The patient was discharged. Procedures documented in this encounterCoshocton Regional Medical Center04-16-2025 Progress note* Quick Notes - Alfred Childress MD - 05/21/2024 10:22 AM EDT RR- VB No. LOF No. CTXS No. Movement: present. Other c/o: No. Was seen in [facility] 05/18 for pressure and tightness, no evidence [...] after PP visit. Declines LARC at delivery, [facility] paper for this signed. not on ASA prophylaxis Synthroid refilled, may need to adjust dose after labs return preferences worksheet given Alfred Childress M.D. [facility]04-16-2025 Miscellaneous Notes* Quick Notes - Alfred Childress MD - 05/21/2024 10:22 AM EDT RR- VB No. LOF No. CTXS No. Movement: present. Other c/o: No. [facility] and [facility], no evidence [...] after PP visit. Declines LARC at delivery, [facility] paper for this signed. not on ASA prophylaxis Synthroid refilled, may need to adjust dose after labs return preferences worksheet given Alfred Childress M.D. documented in this encounterCoshocton Regional Medical Center04-16-2025 NoteHNO ID: [id number] Author: HAYDEE SALAS MA Service: ? Author Type: Care Clinician Type: Progress Notes Filed: 05/21/2024 11:00 Note [...] severely ill: Yes Patient denies history of Guillain-[place] Syndrome (a severe paralytic illness): Yes Tdap Adacel injection was given without incident. See immunizations for details of immunizations administered today. VIS sheet provided: Yes Provider Dr Childress was present in office at time of injection.[facility]04-16-2025 History of Present illness Narrative* Haydee [...] severely ill: Yes Patient denies history of Guillain-[place] Syndrome (a severe paralytic illness): Yes Tdap Adacel injection was given without incident. See immunizations for details of immunizations administered today. VIS sheet provided: Yes Provider Dr Childress was present in office at time of injection. documented in this encounterCoshocton Regional Medical Center04-16-2025 Note Indication Evaluation of growth [...] 2 oz EFW by: Hadlock (HC-AC-FL) Extended Compression Molding Machine Tender 5.0 mm Extremities / Bony Struc FL [...] RDMS, RVT Read By: Florina Lo M.D.MATERNAL [id number] Instructions* Patient Instructions* Haydee Salas MA - 05/21/2024 9:54 AM EDT SEQUENTIAL SCREENINGS The [facility] offers sequential screenings for women [...] testing. It will require an appointment withour database software technician. This is not an ultrasound performed [...] the above symptoms, contact our office at [phone] and ask to speak with anurse. After hours, you can call doctors registry at [phone] OR call [facility] at [phone] ask to have the doctor aviation mechanic paged. If you consider this an emergency, dial 9--1 or go to your nearest emergency department. NEED HELP? Are you dealing with a violent or abusive relationship? Are you a victim of rape or sexual assult? Call [facility] ([place]) 24 hour Crisis Hotline: 918.677.9037 or 267-021-5560. MANUAL Your Guide to a Healthy manual is now on-line. Visit [email or web address] to download your free copy documented in this encounterCoshocton Regional Medical Center04-15-2025 Telephone encounter Note * Telephone Encounter - Jenise Walker RN - 05/20/2024 1:19 PM EDT Spoke with patient. She is comfortable monitoring at home. Cancelled today's visit. Prefers to be seen tomorrow. Jenise Walker RN [facility]04-15-2025 Miscellaneous Notes* Telephone Encounter - Jenise Walekr RN - 05/20/2024 1:19 PM EDT Spoke [...] 10:16 AM EDT 28w1d ER records in Psychiatric documented in this encounterCoshocton Regional Medical Center04-15-2025 Telephone encounter Note * Telephone Encounter - Jenise Nieves MD - 05/20/2024 1:15 PM EDT Labs from the ED are normal. Cervix closed. If she feels she can manage at home and wants to wait until tomorrow that's ok [facility]04-15-2025 Telephone encounter Note* Telephone Encounter [...] to wait until tomorrow? Zohra Cortés RN [facility]04-15-2025 Telephone encounter Note* Telephone Encounter - Jenise Walker RN - 05/20/2024 10:16 AM EDT 28w1d ER records in Psychiatric [facility]04-13-2025 NoteHNO ID: [id number] Author: SUSANA ANDREW RN Service: Nursing Author Type: Registered Nurse Type: Procedures Filed: 05/18/2024 16:02 Note Text: Attestation signed by Omar Arthur MD at 05/18/2024 7:53 PM OBSTETRICS MONITORING ASSESSMENT NST Interpretation: FHR Category: 1 (05/18/241556 : Susana Andrew RN) Disposition: PROVIDER INTERPRETATION: Reactive SIGNATURE: [...] Smith DATE: May 18, 2024 TIME: 4:02 [facility]03-18-2025 Progress note* Quick Notes - Jenise Nieves [...] 1-HOUR, 50 GRAM, NON-FASTING Jenise Nieves MD [facility]03-18-2025 Miscellaneous Notes* Quick Notes - [...] NON-FASTING Jenise Nieves MD documented in this encounterCoshocton Regional Medical Center03-18-2025 Instructions* Patient Instructions* Reny Joe MA - 04/22/2024 12:53 PM EDT SEQUENTIAL SCREENINGS The [facility] offers sequential screenings for women [...] testing. It will require an appointment withour database software technician. This is not an ultrasound performed [...] the above symptoms, contact our office at [phone] and ask to speak with anurse. After hours, you can call doctors registry at [phone] OR call [facility] at [phone] ask to have the doctor aviation mechanic paged. If you consider this an emergency, dial 9-0-4 or go to your nearest emergency department. NEED HELP? Are you dealing with a violent or abusive relationship? Are you a victim of rape or sexual assult? Call [facility] ([place]) 24 hour Crisis Hotline: 760.687.1913 or 791-356-1497. MANUAL Your Guide to a Healthy manual is now on-line. Visit [email or web address] to download your free copy documented in this encounterCoshocton Regional Medical Center03-12-2025 History of Present illness Narrative* Reagan Bermeo MD - 04/16/2024 1:30 PM EDT Susana Castillo MD NAME: Richard Raymond [facility] Number.: [id number] Date of : 1995 Date of Visit: April 16, 2024 Dear Susana Csatillo MD : Ms. Richard Smith was seen [...] Level: 4 - Moderate documented in this encounterCoshocton Regional Medical Center03-12-2025 NoteHNO ID: [id number] Author: REAGAN BERMEO MD Service: ? Author Type: Physician Type: Progress Notes Filed: 04/16/2024 14:20 Note Text: Susana Castillo MD NAME: Richard Smith [facility] Number.: [id number] Date of : 1995 Date of Visit: [...] testing/treatment Medical Decision Making Level: 4 - [facility]erate[facility]02-[facility] Telephone encounter Note* Telephone Encounter - Elsa Chaudhary APRN.CNM - 04/02/2024 4:28 PM EST She should also try wearing tight compression stockings while on feet. This can help! Elsa Chaudhary APRN.CNM [facility]02-26-2025 Miscellaneous Notes* Telephone Encounter - Elsa Chaudhary APRN.CNM - 04/02/2024 4:28 PM EST She should also try wearing tight compression stockings while on feet. This can help! Elsa Chaudhary APRN.CNM * Telephone Encounter - Thais Kamara LPN - 04/02/2024 9:19 AM EST Ob patient is 21w2d documented in this encounterCoshocton Regional Medical Center02-26-2025 Telephone encounter Note * Telephone Encounter - Thais Kamara LPN - 04/02/2024 9:19 AM EST Ob patient is 21w2d [facility]02-25-2025 Telephone encounter Note* Telephone Encounter - Alan Haynes MA - 04/01/2024 1:56 PM EST [facility] paperwork has been faxed back to employer. Patient notified via [employer]. Alan Haynes MA [facility]02-25-2025 Miscellaneous Notes* Telephone Encounter - Alan Haynes MA - 04/01/2024 1:56 PM EST [facility] paperwork has been faxed back to employer. Patient notified via mySkin. Alan Haynes MA * Telephone Encounter - Alan Haynes MA - 04/01/2024 11:49 AM EST [facility] paperwork completed and on providers desk for signature. Alan Haynes MA documented in this encounterCos[facility]02-25-[facility]25 Telephone encounter Note * Telephone Encounter - Alan Haynes MA - 04/01/2024 11:49 AM EST [place] paperwork completed and on providers desk for signature. Alan Haynes MA [facility]02-24-2025 Telephone encounter Note* Telephone Encounter - Jenise Cazares RN - 03/31/2024 9:46 AM EST 2nd risk assessment form submitted 03/31/2024. Jenise Cazares RN [facility]02-24-2025 Miscellaneous Notes* Telephone Encounter - Jenise Cazares RN - 03/31/2024 9:46 AM EST 2nd risk assessment form submitted 03/31/2024. Jenise Cazares RN documented in this encounterCoshocton [facility] Center02-24-2025 Telephone encounter Note * Telephone Encounter - Elizabeth Clarke RN - 03/31/2024 9:25 AM EST mySkin message sent to patient. Elizabeth Clarke RN [facility]02-24-2025 Miscellaneous Notes* Telephone Encounter - Elizabeth Clarke RN - 03/31/2024 9:25 AM EST Qwilthart message sent to patient. Elizabeth Clarke RN * Telephone Encounter - Susana Castillo MD - 03/31/2024 9:14 AM EST filed * Telephone Encounter - Juana Traylor RN - 03/31/2024 8:44 AM EST Patient notified. She does want to proceed with echo. Please file order. Will send patient [employer] message with phone number once order is filed. Juana Traylor RN * Telephone Encounter - Juana Traylor RN - 03/28/2024 5:11 PM EST Left message for patient to call office. Juana Traylor RN * Telephone Encounter - Juana Traylor RN - 03/28/2024 5:10 PM EST Susana Castillo MD to [facility] Ob-[employer] Driver Pool 03/28/24 1:13 PM Result Note Add to record Had visit with SHANE today and looks like she discussed SUA with pt Can offer echo Will need growth US q 4 weeks starting at 28 weeks documented in this encounterCoshocton [facility] Center02-24-2025 Telephone encounter Note * Telephone Encounter - Susana Castillo MD - 03/31/2024 9:14 AM EST filed [facility] Telephone encounter Note* Telephone Encounter - Juana Traylor RN - 03/31/2024 8:44 AM EST Patient notified. She does want to proceed with echo. Please file order. Will send patient [employer] message with phone number once order is filed. Juana Traylor RN [facility]02-21-2025 Telephone encounter Note* Telephone Encounter - Yazmin Hall RN - 03/28/2024 5:21 PM EST Patient returning missed call from Dr Borrego's office regarding results. Patient made aware that office is now closed and will reopen on Sunday. Patient states understanding. Patient denies any new or worsening symptoms of which a provider is not aware:Yes . [facility]02-[facility] Miscellaneous Notes* Telephone Encounter - Yazmin Hall RN - 03/28/2024 5:21 PM EST Patient returning missed call from Dr Borrego's office regarding results. Patient made aware that office is now closed and will reopen on Sunday. Patient states understanding. Patient denies any new or worsening symptoms of which a provider is not aware:Yes . documented in this encounterCoshocton [facility] Medical Center02-21-2025 Telephone encounter Note * Telephone Encounter - Juana Traylor RN - 03/28/2024 5:11 PM EST Left message for patient to call office. Juana Traylor RN [facility]02-21-2025 Telephone encounter Note* Telephone Encounter - Juana Traylor RN - 03/28/2024 5:10 PM EST Susana Castillo MD to [facility] Ob-[employer] Driver Pool 03/28/24 1:13 PM Result Note Add to record Had visit with SHANE today and looks like she discussed SUA with pt Can offer echo Will need growth US q 4 weeks starting at 28 weeks [facility]02-21-2025 Instructions* Patient Instructions* John Banerjee MD - 03/28/2024 10:54 AM EST Please increase the dose of levothyroxine to 100 mcg daily Repeat labs in 6 to 8 weeks Give about 45mins to 60 mins after thyroid medication to eat or drink anything except water Continue to take vitamins at dinner documented in this encounterCoshocton Regional Medical Center02-21-2025 NoteHNO ID: [id number] Author: JOHN BANERJEE MD Service: ? Author [...] Grandfather other (smoker) Materna (more content not included)...[facility] 03-28-2024 History of Present illness Narrative* John Banerjee MD - 03/28/2024 10:43 AM EST [facility] Initial Clinic Visit Note CONSULTING PROVIDER: Elkin Martinez APRN. DESTATICIZER FEEDER My final recommendations will be communicated back [...] Lock, et al. 2017 Guidelines of the [place] [employer] for the Diagnosis and Management [...] John Banerjee MD Endocrinology Associate Staff [facility] [place] [phone] documented in this encounterCoshocton Regional Medical Center02-21-2025 Progress note* Quick Notes - [...] RTO in 4 weeks Mariana Hilario APRN.CNM [facility]02-21-2025 Miscellaneous Notes* Quick Notes - [...] weeks Mariana Hilario APRN.CNM documented in this encounterCoshocton Regional Medical Center02-21-2025 Instructions* Patient Instructions* Mariana Hilario [...] the above symptoms, contact our office at [phone] and ask to speak with anurse. After hours, you can call doctors registry at [phone] OR call [facility] at [phone] ask to have the doctor aviation mechanic paged. If you consider this an emergency, dial 9-1-5 or go to your nearest emergency department. NEED HELP? Are you dealing with a violent or abusive relationship? Are you a victim of rape or sexual assult? Call [facility] ([place]) 24 hour Crisis Hotline: 659.585.2320 or 855-881-0302. MANUAL Your Guide to a Healthy manual is now on-line. Visit [email or web address] to download your free copy documented in this encounterCoshocton Regional Medical Center01-23-2025 Progress note* Quick Notes - [...] ICD9: V22.2, ICD10: Z3A.16 Alfred Childress MD [facility]01-23-2025 Miscellaneous Notes* Quick Notes - [...] Z3A.16 Alfred Childress MD documented in this encounterCoshocton Regional Medical Center01-23-2025 Instructions* Patient Instructions* Haydee Salas MA - 02/28/2024 9:54 AM EST SEQUENTIAL SCREENINGS The [facility] offers sequential screenings for women [...] testing. It will require an appointment withour database software technician. This is not an ultrasound performed [...] the above symptoms, contact our office at [phone] and ask to speak with anurse. After hours, you can call doctors registry at [phone] OR call [facility] at [phone] ask to have the doctor aviation mechanic paged. If you consider this an emergency, dial 9-1-7 or go to your nearest emergency department. NEED HELP? Are you dealing with a violent or abusive relationship? Are you a victim of rape or sexual assult? Call [facility] ([place]) 24 hour Crisis Hotline: 623.607.1497 or 519-463-4270. MANUAL Your Guide to a Healthy manual is now on-line. Visit [email or web address] to download your free copy documented in this encounterCoshocton Regional Medical Center01-15-2025 Telephone encounter Note * Telephone Encounter - Juana Traylor RN - 02/20/2024 9:52 AM EST Patient notified. Juana Traylor RN [facility]01-15-2025 Miscellaneous Notes* Telephone Encounter - Juana Traylor RN - 02/20/2024 9:52 AM EST Patient notified. Juana Traylor RN * Telephone Encounter - Alfred Childress MD - 02/20/2024 9:38 AM EST yes they are. I hope she feels better soon. Alfred Childress MD * Telephone Encounter - Juana Traylor RN - 02/20/2024 8:49 AM EST 15w2d Calling because she went to [facility] ER last night and was diagnosed with pneumonia. States she was prescribed Z-kalyani, albuterol inhaler and benzonatate. She was told to check with OB provider that meds are safe with for sure. Juana Traylor RN documented in this encounterCoshocton Regional Medical Center01-15-2025 Telephone encounter Note * Telephone Encounter - Alfred Childress MD - 02/20/2024 9:38 AM EST yes they are. I hope she feels better soon. Alfred Childress MD [facility]01-15-2025 Telephone encounter Note* Telephone Encounter - Juana Traylor RN - 02/20/2024 8:49 AM EST 15w2d Calling because she went to [facility] ER last night and was diagnosed with pneumonia. States she was prescribed Z-kalyani, albuterol inhaler and benzonatate. She was told to check with OB provider that meds are safe with for sure. Juana Traylor RN [facility]01-09-2025 NoteHNO ID: [id number] Author: JOSE BRINK APRN.DESTATICIZER FEEDER Service: ? Author Type: Nurse Practitioner Type: [...] external ear normal. Nose (more content not included)...[facility]01-09-2025 History of Present illness Narrative* Jose Brink APRN.DESTATICIZER FEEDER - 02/14/2024 2:42 PM EST Subjective HPI [...] for treatment. Patient will reach out to SKIRT MAKER to discuss if antiviral treatment is appropriate. [...] of care. This note was generated using OutSystems software. It may contain errors in wording, punctuation, or spelling. Jose Brink APRN.JUAN M documented in this encounterCoshocton Regional Medical Center12-26-2024 Telephone encounter Note * Telephone Encounter - Zohra Cortés RN - 01/31/2024 10:39 AM EST Early anatomy US pending. Please file if appropriate and will call Pt to get scheduled. Zohra Cortés RN [facility]12-26-2024 Miscellaneous Notes* Telephone Encounter - Zohra Cortés RN - 01/31/2024 10:39 AM EST Early anatomy US pending. Please file if appropriate and will call Pt to get scheduled. Zohra Cortés RN * Telephone Encounter - Xenia Jamison - 01/31/2024 10:35 AM EST Pt asking to schedule her [address] order. Thank you documented in this encounterCoshocton Regional Medical Center12-26-2024 Telephone encounter Note * Telephone Encounter - Xenia Jamison - 01/31/2024 10:35 AM EST Pt asking to schedule her [address] order. Thank you [facility]12-26-2024 Progress note* Quick Notes - [...] or sooner if needed Elsa Chaudhary APRN.CNM [facility]12-26-2024 Miscellaneous Notes* Quick Notes - [...] needed Elsa Chaudhary APRN.CNM documented in this encounterCoshocton Regional Medical Center12-26-2024 Instructions* Patient Instructions* Ankita Hawkins MA - 01/31/2024 8:30 AM EST SEQUENTIAL SCREENINGS The [facility] offers sequential screenings for women [...] testing. It will require an appointment withour database software technician. This is not an ultrasound performed [...] the above symptoms, contact our office at [phone] and ask to speak with anurse. After hours, you can call doctors registry at [phone] OR call [facility] at [phone] ask to have the doctor aviation mechanic paged. If you consider this an emergency, dial 9-1- or go to your nearest emergency department. NEED HELP? Are you dealing with a violent or abusive relationship? Are you a victim of rape or sexual assult? Call [facility] ([place]) 24 hour Crisis Hotline: 909.614.1745 or 725-091-6251. MANUAL Your Guide to a Healthy manual is now on-line. Visit [email or web address] to download your free copy documented in this encounterCoshocton Regional Medical Center12-20-2024 Telephone encounter Note * Telephone Encounter - Zohra Cortés RN - 01/25/2024 10:45 AM EST Called Pt. Pt denies dysuria. C/o vaginal itching. Had OB routine appt scheduled with CP on 01/31/24. Rescheduled to 01/28/24 with CP. Zohra Cortés RN [facility]12-20-2024 Miscellaneous Notes* Telephone Encounter - Zohra Cortés RN - 01/25/2024 10:45 AM EST Called Pt. Pt denies dysuria. C/o vaginal itching. Had OB routine appt scheduled with CP on 01/31/24. Rescheduled to 01/28/24 with CP. Zohra Cortés RN documented in this encounterCoshocton Regional Medical Center11-24-2024 NoteHNO ID: [id number] Author: KAITLYN BLANK MD Service: ? 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 Encounter Diagnosis ICD-10-CM 1. Encounter for supervision of high risk in first trimester, antepartum O09.91 2. with uncertain dates in first trimester Z34.91 Please see report under imaging tab. 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 Encounter Diagnosis ICD-10-CM 1. Encounter for supervision of high risk in first trimester, antepartum O09.91 2. with uncertain dates in first trimester Z34.91 Please see report under imaging tab. Kaitlyn Blank MD December 30, 2023 10:47 PM documented in this encounterCoshocton Regional Medical Center11-22-2024 Progress note* Quick Notes - [...] - RTO 4 wks Susana Castillo DO [facility]11-22-2024 Miscellaneous Notes* Quick Notes - [...] wks Susana Castillo DO documented in this encounterCoshocton Regional Medical Center11-22-2024 Instructions* Patient Instructions* Rachael Alexandre MA - 12/28/2023 10:10 AM EST SEQUENTIAL SCREENINGS The [facility] offers sequential screenings for women [...] testing. It will require an appointment withour database software technician. This is not an ultrasound performed [...] the above symptoms, contact our office at [phone] and ask to speak with anurse. After hours, you can call doctors registry at [phone] OR call [facility] at [phone] ask to have the doctor aviation mechanic paged. If you consider this an emergency, dial 91-3 or go to your nearest emergency department. NEED HELP? Are you dealing with a violent or abusive relationship? Are you a victim of rape or sexual assult? Call [facility] ([facility] 24 hour Crisis Hotline: 384.352.9569 or 454-661-0502. MANUAL Your Guide to a Healthy manual is now on-line. Visit [email or web address] to download your free copy documented in this encounterCoshocton Regional Medical Center11-18-2024 Telephone encounter Note * Telephone Encounter - Juana Traylor RN - 12/24/2023 12:10 PM EST 9w6d ER records are available in care everywhere. Has u/s and OB visit with on 12/28/23 next. Juana Traylor RN [facility]11-18-2024 Miscellaneous Notes* Telephone Encounter - Juana Traylor RN - 12/24/2023 12:10 PM EST 9w6d ER records are available in care everywhere. Has u/s and OB visit with on 12/28/23 next. Juana Traylor RN documented in this encounterCoshocton Regional Medical Center11-18-2024 Emergency department Note * Segundo Lopez DO - 12/24/2023 9:12 AM EST HPI Chief Complaint Patient presents with Vaginal Bleeding 6 weeks , brown spotting this am x1 on toilet paper only. + abdominal/back pain, LMP 10/16/23 G3 P 1 AB 1. OBGYN [facility] Patient presents to the emergency [...] 1 living child. History provided by: Patient diplomatic interpreter used: No Patient History History reviewed. No [...] and follow-up with her OB physician in [place] this week. She states she has a [...] Lopez DO 12/24/23 1202 documented in this [facility] Work Phone: 1(523) 860-847511-18-2024 Physician Emergency department Note* Segundo Lopez DO - 12/24/2023 9:12 AM EST HPI Chief Complaint Patient presents with Vaginal Bleeding 6 weeks , brown spotting this am x1 on toilet paper only. + abdominal/back pain, LMP 10/16/23 G3 P 1 AB 1. OBGYN [facility] Patient presents to the emergency [...] 1 living child. History provided by: Patient diplomatic interpreter used: No Patient History History reviewed. No [...] ED Course & MDM No data recorded [place] Coma Scale Score: 15 (12/24/23 0918 : Licha Acosta, [place]) Medical Decision Making Differential considerations would include, but not limited to, threatened , dysfunctional uterine bleeding, amongst others. Patient's ultrasound is reassuring and she is not anemic. There is no active bleeding on her examination therefore I feel she is appropriate for discharge. Continue vitamins and follow-up with her OB physician in [place] this week. She states she has a [...] worse. Procedure Procedures Segundo Lopez DO 12/24/23 1206 [facility] Work Phone: 1(121) 796-212311-08-2024 Telephone encounter Note* Telephone Encounter - Mariana Hilario APRN.CNM - 12/14/2023 10:06 AM EST Mammogram ordered, patient is . Mariana Hilario APRN.CNM [facility]11-08-2024 Miscellaneous Notes* Telephone Encounter - Mariana Hilario APRN.CNM - 12/14/2023 10:06 AM EST Mammogram ordered, patient is . Mariana Hilario APRN.CNM * Telephone Encounter - Madalyn Copeland RDMS - 12/12/2023 7:35 AM EST May we please have Bilateral Diagnostic Mammogram orders placed per [facility] Breast imaging protocol. Only to be used at the discretion of the radiologist. Thank you very much! Madalyn Copeland documented in this encounterCoshocton Regional Medical Center11-06-2024 Telephone encounter Note * Telephone Encounter - Jenise Walker RN - 12/12/2023 3:46 PM EST hCG Quantitative, Blood Date Value 12/12/2023 2,128.0 mIU/mL 12/10/2023 1,021.0 mIU/mL Provider notified patient in a RedMicat message. Jenise Walker RN [facility]11-06-2024 Miscellaneous Notes* Telephone Encounter - [...] AM EST Can have T4 drawn with [place] appt today if they can't add it [...] drawn. Patient has a lab appointment in [place] today at 10:00 AM (which was supposed [...] scheduling. Elkin Martinez APRN.CNP documented in this encounterCoshocton Regional Medical Center11-06-2024 Telephone encounter Note * Telephone Encounter - Madalyn Copeland RDMS - 12/12/2023 7:35 AM EST May we please have Bilateral Diagnostic Mammogram orders placed per [facility] Breast imaging protocol. Only to be used at the discretion of the radiologist. Thank you very much! Madalyn Copeland [facility]11-05-2024 Telephone encounter Note* Telephone Encounter - Rojelio Alcantar RN - 12/11/2023 10:12 AM EST 1st risk assessment form submitted 12/11/23 [facility]11-05-2024 Miscellaneous Notes* Telephone Encounter - Rojelio Alcantar RN - 12/11/2023 10:12 AM EST 1st risk assessment form submitted 12/11/23 documented in this encounterCoshocton Regional Medical Center11-04-2024 Telephone encounter Note * Telephone Encounter - Jenise Walker RN - 12/10/2023 2:01 PM EST hCG Quantitative, Blood Date Value 12/10/2023 1,021.0 mIU/mL Leave phone note open for 12/11 HCG. [facility]11-04-2024 Telephone encounter Note* Telephone Encounter - Elkin Martinez APRN.CNP - 12/10/2023 8:59 AM EST Can have T4 drawn with [place] appt today if they can't add it on Elkin Martinez APRN.DESTATICIZER FEEDER [facility]11-04-2024 Telephone encounter Note* Telephone Encounter - Jenise Walker RN - 12/10/2023 8:52 AM EST Spoke with lab client services. Having an issue with computer. Will call the office back on the direct line if patient needs a new sample. Patient notified. Inquired about her HCG level from 12/06. Not drawn. Patient has a lab appointment in [place] today at 10:00 AM (which was supposed to be her second quant). Patient is anxious about having a possible missed AB. Advised that we should have that result today. Transferred to schedule with endo. Jenise Walker, RN [facility]11-04-2024 Telephone encounter Note* Telephone Encounter - Elkin Martinez APRN.CNP - 12/10/2023 7:18 AM EST Please notify patient: TSH elevated, indicating thyroid problem. T4 ordered - please see if lab can add on. If not, pleaseask patient to have done. Endocrinology consult placed. Please assist in scheduling. Elkin Martinez APRN.CNP [facility]11-01-2024 Instructions* Patient Instructions* Reny Joe MA - 12/07/2023 10:45 AM EDT Please select the following link to access the [facility] Your Guide to a Healthy . [email or web address] documented in this encounterCoshocton Regional Medical Center10-29-2024 NoteHNO ID: [id number] Author: ELKIN MARTINEZ APRN.CNP Service: ? Author Type: Nurse Practitioner Type: Progress Notes Filed: 12/07/2023 12:01 Note Text: Vice President Integrated offered: Patient declines. INITIAL OB ASSESSMENT HPI: [...] 2019 Missed ab Current (more content not included)...[facility]10-29-2024 History of Present illness Narrative* Elkin Martinez, ZANE.DESTATICIZER FEEDER - 12/04/2023 9:58 AM EDT Vice President Integrated offered: Patient declines. INITIAL OB ASSESSMENT HPI: [...] discussed with the Patient or Patient's Authorized Laborer [employer]. As applicable, any other physician, advance practice provider, medical student, or other health professional student that will be observing or involved in the sensitive examination for educational or training purposes was discussed with the Patient or Authorized Laborer [employer]. The Patient or Authorized Laborer [employer] has agreed to proceed with the sensitive [...] Your guide to a health and the Director Targeted Marketing. Discussed hemoglobin electrophoresis. Patient: Declines 2) Screening: [...] weeks): [] Consent [] Contraception - [] Chief Operator Third trimester (36-40 weeks): [] GBS [...] see GS. Likely early gestation. Elkin Martinez APRN.DESTATICIZER FEEDER History of Pre-Eclampsia - 05/16/2017 Comment: 2018 induction due to pre eclampsia at [place]. Baseline labs ordered. Elkin Martinez APRN.DESTATICIZER FEEDER Family History of Congenital Anomaly - 12/07/2023 Comment: December 07, 2023 FOB born with gastroschisis Elkin Martinez APRN.DESTATICIZER FEEDER History of Anxiety - 12/07/2023 Comment: December 07, 2023 Has been off Prozac for 6 years and reports doing well. Mental health resources provided. To update throughout Elkin Martinez APRN.DESTATICIZER FEEDER Obesity Affecting in First Trimester - 12/07/2023 [...] Elkin Martinez APRN.JUAN M documented in this encounterCoshocton Regional Medical Center10-29-2024 Telephone encounter Note * Telephone Encounter - Jenise Walker RN - 12/04/2023 9:08 AM EDT Patient available at 10:30 today. Jenise Walker RN [facility]10-29-2024 Miscellaneous Notes* Telephone Encounter - [...] transfer to or Iman documented in this encounterCoshocton Regional Medical Center10-29-2024 Telephone encounter Note * Telephone Encounter - Rita David RN - 12/04/2023 9:02 AM EDT Left message for patient to return phone call to complete nurse intake questions for her upcoming appointment. Patient has an appointment with Elkin Martinez for NOB appointment on . Please transfer to mi or Iman [facility]10-18-2024 NoteHNO ID: [id number] Author: MARIANA HILARIO APRN.CNM Service: ? Author Type: Associate Professor Type: Progress Notes Filed: 11/23/2023 12:05 Note Text: Vice President Integrated offered: Patient declines. Richard is a 28 [...] L1 SAB0 IAB0 Ectopic0 Multiple0 Live Births1 [employer] 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 As applicable, any other physician, advance practice provider, medical student, or other health professional student that will be observing or involved in the sensitive examination for educational or training purposes was discussed with the Patient or Authorized Laborer Starch Factory. The Patient or Authorized Laborer [employer]arch Factory has agreed to proceed with the sensitive [...] external genitalia normal, normal Bartholin's glands, urethra, Vance's glands, no vulvar lesions, no cervical lesions, [...] side effects of OCP's. (more content not included)...[facility]10-18-[facility] History of Present illness Narrative* Mariana Hilario APRN.FABI - 11/23/2023 10:33 AM EDT Vice President Integrated offered: Patient declines. Richard is a 28 [...] L1 SAB0 IAB0 Ectopic0 Multiple0 Live Births1 [employer]ak 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 As applicable, any other physician, advance practice provider, medical student, or other health professional student that will be observing or involved in the sensitive examination for educational or training purposes was discussed with the Patient or Authorized Laborer Starch Factory. The Patient or Authorized Laborer [employer]arch [employer] has agreed to proceed with the sensitive [...] external genitalia normal, normal Bartholin's glands, urethra, Vance's glands, no vulvar lesions, no cervical lesions, [...] needed Mariana Hilario APRN.CNM documented in this encounterCoshocton [facility]10-16-[facility] History of Present illness Narrative* Ed Vaz APRN.CNP - 11/21/2023 7:30 AM EDT Images from the original note were not included. Endocrinology Weight Management Follow Up This Team Access Model visit is a virtual encounter and Richard Smith has consented to this virtual encounter. This is a virtual visit using Katot Zoom Video Visit. It is a required patient-providerinteraction for the medical decision making as documented below. I have communicated my name and active licensure. The patient's identity and physical location wereverified at the time of this visit. Either the patient or their legal ambulatory services representative has been informed of the risks [...] a past medical history of PCOS seeing SKIRT MAKER, anxiety (no medication) Control oral - have [...] to Sunday 6:30 AM -- Works at [employer] Past History, Allergies, Medications: PAST MEDICAL HISTORY [...] Lock et al. 2017 Guidelines of the [place] Thy[employer] Association for the Diagnosis and Management [...] a past medical history of PCOS seeing SKIRT MAKER, anxiety (no medication) . Weight at start [...] problems. Ed Vaz APRN.CNP Endocrinology and Metabolism [place] [facility] documented in this encounterCoshocton Regional Medical Center10-16-2024 NoteHNO ID: [id number] Author: ED VAZ APRN.CNP Service: ? Author Type: Nurse Practitioner Type: Progress Notes Filed: 11/21/2023 07:55 Note Text: Endocrinology Weight Management Follow Up This Team Access Model visit is a virtual encounter and Richard Smith has consented to this virtual encounter. This is a virtual visit using Paradise [employer] Video Visit. It is a required patient-provider interaction for the medical decision making as documented below. I have communicated my name and active licensure. The patient's identity and physical location were verified at the time of this visit. Either the patient or their legal ambulatory services representative has been informed of the risks [...] a past medical history of PCOS seeing SKIRT MAKER, anxiety (no medication) Control oral - have [...] to Sunday 6:30 AM -- Works at [employer] Past History, Allergies, Medications: PAST MEDICAL HISTORY [...] Breathing?: No Chest pa (more content not included)...[facility]07-02-2024 Telephone encounter Note* Telephone Encounter - Enriqueta Mckeon RN - 08/07/2023 11:15 AM EDT Ed, please see My Chart [facility]07-02-[facility] Miscellaneous Notes* Telephone Encounter - Enriqueta Mckeon RN - 08/07/2023 11:15 AM EDT Ed, please see My Chart documented in this encounterCoshocton Regional Medical Center07-01-2024 History of Present illness Narrative* Ed Vaz APRN.JUAN M - 08/06/2023 7:30 AM EDT Images from the original note were not included. Endocrinology Weight Management Follow Up This Team Access Model visit is a virtual encounter and Richard Raymond Sarah has consented to this virtual encounter. This is a virtual visit using Katot Zoom Video Visit. It is a required patient-providerinteraction for the medical decision making as documented below. I have communicated my name and active licensure. The patient's identity and physical location wereverified at the time of this visit. Either the patient or their legal ambulatory services representative has been informed of the risks and benefits of -- and alternatives to -- treatment through a remote evaluation andconsents to proceed with the evaluation remotely. Subjective HISTORY OF PRESENT ILLNESS: Chief Complaint: medical weight loss Age: [age] year old PMH: PCOS seeing SKIRT MAKER, anxiety (no medication) Control oral Patient's last [...] Lock, et al. 2017 Guidelines of the [place] Thy[employer] Association for the Diagnosis and Management [...] problems. Ed Vaz APRN.CNP Endocrinology and Metabolism [place] [facility] documented in this encounterCoshocton Regional Medical Center07-01-2024 NoteHNO ID: [id number] Author: ED VAZ APRN.CNP Service: ? Author Type: Nurse Practitioner Type: Progress Notes Filed: 08/06/2023 07:35 Note Text: Endocrinology Weight Management Follow Up This Team Access Model visit is a virtual encounter and Richard Smith has consented to this virtual encounter. This is a virtual visit using [employer] Video Visit. It is a required patient-provider interaction for the medical decision making as documented below. I have communicated my name and active licensure. The patient's identity and physical location were verified at the time of this visit. Either the patient or their legal ambulatory services representative has been informed of the risks and benefits of -- and alternatives to -- treatment through a remote evaluation and consents to proceed with the evaluation remotely. Subjective HISTORY OF PRESENT ILLNESS: Chief Complaint: medical weight loss Age: [age] year old PMH: PCOS seeing SKIRT MAKER, anxiety (no medication) Control oral Patient's last [...] Chest pain: No Irreg (more content not included)...[facility]05-16-2024 Telephone encounter Note* Telephone Encounter - Susana Batista MA - 06/21/2023 10:27 AM EDT Images from the original note were not included. MARIANNE denied for Phentermine. Please see letter below. [facility]05-16-[facility] Miscellaneous Notes* Telephone Encounter - Susana Batista MA - 06/21/2023 10:27 AM EDT Images from the original note were not included. MARIANNE denied for Phentermine. Please see letter below. * Telephone Encounter - Susana Batista MA - 06/20/2023 12:40 PM EDT MARIANNE initiated via Nymirum for Phentermine 37.5 mg. Faxed to [phone] with confirmation; filed in cabinet. documented in this encounterCoshocton Regional Medical Center05-15-2024 Telephone encounter Note * Telephone Encounter - Susana Batista MA - 06/20/2023 12:40 PM EDT PA initiated via Nymirum for Phentermine 37.5 mg. Faxed to [phone] with confirmation; filed in cabinet. [facility]05-01[facility] History of Present illness Narrative* Ed Vaz APRN.DESTATICIZER FEEDER - 06/06/2023 10:00 AM EDT Images from the original note were not included. Endocrinology Weight Management Follow Up Subjective HISTORY OF PRESENT ILLNESS: Chief Complaint: medical weight loss Age: [age] year old PMH: PCOS seeing SKIRT MAKER, anxiety (no medication) Control oral Patient's last [...] Lock, et al. 2017 Guidelines of the [place] Thyroid Association for the Diagnosis and Management [...] Ed Vaz APRN.JUAN M Endocrinology and Met[facility] [place] [facility] documented in this encounterCoshocton Regional Medical Center04-23-2024 History of Present illness Narrative* Cadence Camejo, RD - 05/29/2023 10:00 AM EDT [facility] Medical Nutrition Therapy Visit Type: I have communicated my name and active licensure. The patient's identity and physical location wereverified at the time of this visit. Either the patient or their legal ambulatory services representative has been informed of the risks [...] salad with cheese+ranch or fast food - [employer] chicken sandwich- fried crispy, sometimes fries Snack:3-4PM [...] regulation and avoiding the dieting mentality for snf behavior change --Discussed tactics for getting enough [...] up: as needed Referred by: Ed Vaz APRN.DESTATICIZER FEEDER Consult Billing Type/Increments: Initial Assessment/15 minutes, 2 increment(s), 30 minutes Start time: 10:00 AM End time: 10:30 AM My final report will be communicated back to the requesting physician by way of shared medical record. Signed by: Cadence Camejo RD documented in this encounterCoshocton Regional Medical Center04-08-2024 Telephone encounter Note * Telephone Encounter - Susana Batista MA - 05/14/2023 2:54 PM EDT Images from the original note were not included. PA denied. [facility]04-08-[facility] Miscellaneous Notes* Telephone Encounter - Susana Batista MA - 05/14/2023 2:54 PM EDT Images from the original note were not included. PA denied. * Telephone Encounter - Susana Batista MA - 05/14/2023 2:53 PM EDT PA initiated for Lomaira 8mg via Covermymeds. Barber: [email or web address] documented in this encounterCoshocton Regional Medical Center04-08-2024 Telephone encounter Note * Telephone Encounter - Susana Batista MA - 05/14/2023 2:53 PM EDT PA initiated for Lomaira 8mg via Covermymeds. Barber: [email or web address] [facility]04-03-2024 Miscellaneous Notes* Telephone Encounter - Tate Gonzalez - 05/09/2023 12:31 PM EDT Left voicemail and mychart to schedule with a locomotive firer/fireman * Telephone Encounter - Ed Vaz APRN.CNP - 05/09/2023 11:54 AM EDT Please help patient schedule with locomotive firer/fireman for weight. Thank you, Ed Vaz APRN.JUAN M documented in this encounterCoshocton Regional Medical Center03-21-2024 History of Present illness Narrative* Ed Vaz APRN.CNP - 04/26/2023 10:30 AM EDT Images from the original note were not included. Endocrinology Weight Management Follow Up This Team Access Model visit is a virtual encounter and Richard Smith has consented to this virtual encounter. This is a virtual visit using PartyWithMe Zoom Video Visit. It is a required patient-providerinteraction for the medical decision making as documented below. I have communicated my name and active licensure. The patient's identity and physical location wereverified at the time of this visit. Either the patient or their legal ambulatory services representative has been informed of the risks and benefits of -- and alternatives to -- treatment through a remote evaluation andconsents to proceed with the evaluation remotely. Subjective HISTORY OF PRESENT ILLNESS: Chief Complaint: medical weight loss Age: [age] year old PMH: PCOS seeing SKIRT MAKER, anxiety (no medication) Control oral Patient's last [...] E, et al. 2017 Guidelines of the [place] Thyroid Association for the Diagnosis and Management [...] weight loss = 198 lbs Plan: Download ParasitX junior to track your daily calorie intake [...] Ed Vaz APRN.JUAN M Endocrinology and Metabolism [place] [facility] documented in this encounterCoshocton Regional Medical Center03-11-2024 History of Present illness Narrative* [...] plan. Morelia Chance PA-C documented in this encounterCoshocton Regional Medical Center09-07-2023 Miscellaneous Notes* Telephone Encounter - Terri Drake - 10/12/2022 9:24 AM EDT Called patient lvm to assist with scheduling endo locomotive firer/fireman and psychology appointment. * Telephone Encounter - Ed Vaz APRN.CNP - 10/12/2022 9:09 AM EDT Please schedule patient with locomotive firer/fireman (Mauricio) and Endocrine Psychologist. Follow up with me in 2 months for weight. Ed Vaz APRN.CNP documented in this encounterCoshocton Regional Medical Center09-07-2023 Miscellaneous Notes* Telephone Encounter - Ed Vaz APRN.CNP - 10/12/2022 8:36 AM EDT Please schedule patient with locomotive firer/fireman (Mauricio) and Endocrine Psychologist. Follow up with me in 2 months for weight. Ed Vaz APRN.CNP documented in this encounterCoshocton Regional Medical Center09-07-2023 History of Present illness Narrative* Ed Vaz APRN.CNP - 10/12/2022 8:30 AM EDT Images from the original note were not included. Endocrinology Weight Management Follow Up This Team Access Model visit is a virtual encounter and Richard Smith has consented to this virtual encounter. This is a virtual visit using PartyWithMe video visit. It is a required patient-provider interaction for the medical decision making as documented below. I have communicated my name and active licensure. The patient's identity and physical location wereverified at the time of this visit. Either the patient or their legal ambulatory services representative has been informed of the risks and benefits of -- and alternatives to -- treatment through a remote evaluation andconsents to proceed with the evaluation remotely. Subjective History of Present Illness: Age: [age] year old Patient comes today for follow up of weight management. Past medical history: PCOS seeing SKIRT MAKER, anxiety (no medication) = Patient is new [...] the the 0.25 mg dose = Saw locomotive firer/fireman 2 years ago = Cook during the week on the go Patient currently denies a history of MA,problems with heart valves,arrhythmias.She also denies being on [...] E, et al. 2017 Guidelines of the [place] Thyroid Association for the Diagnosis and Management [...] addition to changing behaviors. Consult orders for locomotive firer/fireman and psychology today. Patient is on control. [...] control -- Patient has not met with locomotive firer/fireman to establish a nutritional plan specific to [...] My Fitness Pal). Activity journals / trackers (TeamSupport watch, Fit Bit, [employer] vivofit, Striiv). Exercise / Physical Activity -- Discussed the role of exercise on weight loss and maintenance. ---Currently walking cardio 30 minutes every other day -- Patient does not to see an psychology department chair yet -- Physical activity as tolerated for [...] consultants regarding other medical problems. Ed Vaz APRN.[facility] Endocrinology and Metabolism [place] [facility] documented in this encounterCoshocton Regional Medical Center06-27-2023 Miscellaneous Notes* Telephone Encounter - Lupe Grant MD - 08/01/2022 4:15 PM EDT PA re-done with IFG, PCOS as diagnosis. Lupe Grant MD * Telephone Encounter - Macy Bay - 08/01/2022 4:14 PM EDT Faxed prior auth forms to the [place] Department of Medicaid [phone] on 08/01. Macy Bay [facility] * Telephone Encounter - Rachael Posey Ma [...] send new prescription to the linked pharmacy ([place], [place]). * Telephone Encounter - Macy Bay - 08/01/2022 2:08 PM EDT Patient called saying she needs the prior auth redone as it was put in for weight management and she says she's not just taking it for weight management. She is also taking the Ozempic for pre diabetes and for PCOS. Please follow up with patient. Thanks. Macy Bay [facility] documented in this encounterCoshocton Regional Medical Center06-20-2023 Miscellaneous Notes* Telephone Encounter - Rachael Posey Ma - 07/25/2022 12:09 PM EDT See other PartyWithMe messages for encounter sent to Dr. Lupe Grant. documented in this encounterCoshocton Regional Medical Center06-20-2023 History of Present illness Narrative* Kami Barraza [facility] - 07/25/2022 11:34 AM EDT Requested by: Kami Medication Requested: Ozempic Insurance Name: [employer] PA phone #: [phone] Status: Denied. Denial letter scanned into chart documented in this encounterCoshocton Regional Medical Center06-14-2023 Miscellaneous Notes* Telephone Encounter - Kalee Campos - 07/19/2022 11:50 AM EDT Patient called requesting a prior authorization for semaglutide (OZEMPIC) 0.25 mg or 0.5 mg(2 mg/1.5 mL) pen. Patient stated she was told it can take up to 3 weeks. Pharmacist at [facility] told pt they sent over forms to be completed by provider because they cannot fill prescriptions without the authorization. Patient can be contacted at [phone]. [facility] documented in this encounterCoshocton Regional Medical Center06-13-2023 Miscellaneous Notes* Telephone Encounter - Mariah Palencia RN - 07/18/2022 8:31 AM EDT Called patient but no answer; left detailed VM for patient about Ozempic and PA. Thanks, MICHELLE DíazN RN [facility] * Telephone Encounter - Lupe Grant MD [...] the last dose last Sunday07/11/22. Rachana Gonzalez Central Station Operator II Endocrinology & Metabolism [place] F20-X documented in this encounterCoshocton Regional Medical Center06-07-2023 History of Present illness Narrative* Lupe Grant MD - 07/12/2022 11:51 AM EDT Endocrinology Follow-Up Progress Note CC: Weight management HPI: 26 y/o woman with PCOS, migraines, hepatic steatosis here for follow-up. She was recently diagnosed with PCOS by her SKIRT MAKER. Menarche at age 11. Always regular but became irregular the last couple years. LMP April 2021. She has hair growth on face and also acne. She has a 2 y/o, no issues conceiving. The past few years were actively trying to become was unsuccessful. 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 Lavern Lim MD Interventional Cardiology [facility] [address], [place] [address] [phone] Chief Complaint Patient presents with: Consult HISTORY [...] to correct any errors. documented in this encounterCoshocton Regional Medical Center01-26-2023 Miscellaneous Notes* Telephone Encounter - Susana Castillo MD - 03/02/2022 3:38 PM EST filed * Telephone Encounter - Thais Kamara LPN - 03/02/2022 3:21 PM EST Patient had appointment 01/25/2022 with Selena documented in this encounterCoshocton Regional Medical Center01-19-2023 History of Present illness Narrative* [...] was recently diagnosed with PCOS by her SKIRT MAKER. Menarche at age 11. Always regular but became irregular the last couple years. LMP April 2021. She has hair growth on face and also acne. She has a 2 y/o, no issues conceiving. The past few years were actively trying to become was unsuccessful. 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 Remaining 12 point [...] start metformin. She was also interested in [facility] so will refer her. - start metformin 500mg once daily x 1 week then increase to 500mg BID - meet with dietitian -Continue exercise regimen - Refer to SMA program RTC 4 months Lupe Grant MD documented in this encounterCoshocton Regional Medical Center01-10-2023 Miscellaneous Notes* Telephone Encounter - [...] you, Mariana Hilario APRN.CNM documented in this encounterCoshocton Regional Medical Center12-30-2022 Instructions* Patient Instructions* Mariana Hilario [...] Take care, Mariana Hilario APRN.CNM Please call [phone] to schedule your Endocrinology Medical Weight Management appointment or you can self-schedule by logging onto your PartyWithMe account. Polycystic Ovary Syndrome Women with polycystic [...] is provided by your physician and the [facility] Journal of Medicine and theCoshocton Regional [facility] for Specialized Women s Health [email or web address]. This information has not been designed to replace a physician's medical assessment and medical judgment. Copyright 1994- 2012 [facility]. All rights reserved This information is provided by the [facility] and is not intended to replace the medical advice of your doctor or health care provider. Please consult your health care provider for advice about a specific medical condition. For additional health information, please contact the Center for Consumer Health Information at the [facility] or toll-free extension [phone]. If you prefer, you may visit [email or web address] or [email or web address]. This document was last reviewed on: 2009 index#2716 Hyperlipidemia You are being sent home after [...] less iron deficiency anemia in pill users. terminal press operator use is associated with a decreased incidence [...] and mild fluid retention. There is no terminal superintendent weight gain with the use of the [...] per day. Low-carbohydrate diet -- Low- and eidw-aop-cfiyflsalise diets (eg, Atkins diet, Cartesian diet) have become popular ways to lose weight quickly. With a zhdz-tfd-wqazoptjjgmk diet, you eat between 0 and 60 [...] do not contain carbohydrates. Side effects of uggw-ylw-hokmhcepjcto diets can include constipation, headache, bad breath, [...] and arenot recommended. A doctor, nurse, or electricity trading analyst can help you find a safe and effective way to lose weight and keep it off. Adapted from [employer] documented in this encounterCoshocton Regional Medical Center12-21-2022 History of Present illness Narrative* [...] which included preparing to see the patient, gqye-kz-fgwy patient care, completing clinical documentation, obtaining and/or reviewing separately obtained history, performing a medically appropriate examination, counseling and educating the pat ient/family/caregiver, and ordering medications, tests, or procedures. documented in this encounterCoshocton Regional Medical Center12-06-2022 History of Present illness Narrative* [...] without fatigue, no recent change in weight ORDER ENTRY REPRESENTATIVE: denies abnormal vaginal bleeding, no vaginal discharge, [...] which included preparing to see the patient, qdqb-lr-gsoi patient care, completing clinical documentation, obtaining and/or reviewing separately obtained history, performing a medically appropriate examination, counseling and educating the pat ient/family/caregiver, and ordering medications, tests, or procedures. documented in this encounterCoshocton Regional Medical Center11-13-2022 History of Present illness Narrative* Jose Brink APRN.DESTATICIZER FEEDER - 12/18/2021 11:49 AM EST Images from [...] Wt 105.4 kg (232 lb 6.4 oz) [facility] 04/08/2021 SpO2 98% BMI 39.68 kg/m Review [...] Jose Brink APRN.JUAN M documented in this encounterCoshocton Regional Medical Center07-15-2022 History of Present illness Narrative* [...] Eric Gaspar APRN.JUAN M documented in this encounterCoshocton Regional Medical Center06-29-2022 Instructions* Patient Instructions* Storm Mueller [...] it does not improve. documented in this encounterCoshocton Regional Medical Center06-29-2022 History of Present illness Narrative* Storm Mueller DO - 08/03/2021 2:50 PM EDT [facility] FOLLOW-UP EXAM NAME: Richard Smith DATE: 08/03/2021 CC: Urgent Care Follow-Up SUBJECTIVE HPI: Richard Smith is a 26 year old female presenting for an Urgent Care visit on 08/02/21 in [place]. Muscle Spasm - Patient stated that she [...] pain worse, and so she scheduled with [facility] for further workup. - Patient denied any [...] Preceptor: Karon Odonnell M.D. documented in this encounterCoshocton Regional Medical Center06-28-2022 Miscellaneous Notes* Telephone Encounter - [...] another note.. Pt notified. documented in this encounterCoshocton [facility] of [facility] Narrative* [...] 02, 2021 9:57 AM [facility] Present [facility] Narrative* [...] IV DATA: Not applicable SIGNED BY: RT Jennifer(Joel) March 02, 2021 10:18 AM [facility] of Present illness Narrative* [...] 07, 2021 9:17 AM [facility] Past [facility] Narrative* [...] of this encounter (statuses as of 08/02/2021) [facility]* [...] of this encounter (statuses as of 08/05/2021) [facility]* [...] of this encounter (statuses as of 08/20/2021) [facility]* [...] of this encounter (statuses as of 12/18/2021) [facility]* [...] of this encounter (statuses as of 01/12/2022) [facility]* [...] of this encounter (statuses as of 02/08/2022) [facility]* [...] of this encounter (statuses as of 02/14/2022) [facility]* [...] of this encounter (statuses as of 02/23/2022) [facility]* [...] of this encounter (statuses as of 03/01/2022) [facility]* [...] of this encounter (statuses as of 03/02/2022) [facility]* [...] of this encounter (statuses as of 03/03/2022) [facility]* [...] of this encounter (statuses as of 06/05/2022) [facility]* [...] of this encounter (statuses as of 07/12/2022) [facility]* [...] of this encounter (statuses as of 07/19/2022) [facility]* [...] of this encounter (statuses as of 07/25/2022) [facility]* [...] of this encounter (statuses as of 07/26/2022) [facility]* [...] of this encounter (statuses as of 08/02/2022) [facility]* [...] of this encounter (statuses as of 09/13/2022) [facility]* [...] of this encounter (statuses as of 09/22/2022) [facility]* [...] of this encounter (statuses as of 10/12/2022) [facility]* [...] of this encounter (statuses as of 10/12/2022) [facility]* [...] of this encounter (statuses as of 10/12/2022) [facility]* [...] of this encounter (statuses as of 04/16/2023) [facility]* [...] of this encounter (statuses as of 04/26/2023) [facility]* [...] of this encounter (statuses as of 04/26/2023) [facility]* [...] of this encounter ([facility]es as of [facility]/10[facility]2023) [facility] Muscle spasm of right shoulder- Primary Spasm of muscle [facility] Diagnosis Suspected COVID-19 virus infection- [facility] Generalized abdominal pain- Primary Abdominal pain, generalized Upper back pain [facility] Diagnosis Unintended weight gain- Primary Abnormal weight gain Hot flashes Symptomatic menopausal or female climacteric states Screening cholesterol level Screening for lipoid disorders Secondary amenorrhea Absence of menstruation Class 2 obesity due to excess calories without serious comorbidity with body mass index (BMI) of 39.0 to 39.9 in adult [facility] Diagnosis PCOS (polycystic ovarian syndrome)- [...] Absence of menstruation [facility] Diagnosis Obesity, Class II, BMI 35-39.9- Primary Obesity, unspecified Impaired fasting glucose PCOS (polycystic ovarian syndrome) Polycystic ovaries documented in this encounter [facility] note* Diagnosis Impaired fasting glucose- Primary Obesity, Class II, BMI 35-39.9 Obesity, unspecified documented in this encounter [facility] note* Diagnosis Screening for ischemic heart disease- [...] disorders Pure hypercholesterolemia documented in this encounter [facility] note* Diagnosis Obesity, Class I, BMI 30-34.9- Primary Obesity, unspecified IFG (impaired fasting glucose) Impaired fasting glucose PCOS (polycystic ovarian syndrome) Polycystic ovaries documented in this encounter [facility] note* Diagnosis Obesity, Class I, BMI 30-34.9- Primary Obesity, unspecified documented in this encounter [facility] note* Diagnosis Class 1 obesity with body mass index (BMI) of 34.0 to 34.9 in adult, unspecified obesity type, unspecified whether serious comorbidity present- Primary documented in this encounter [facility] note* Diagnosis Acute cough- Primary Exposure to the flu Contact with or exposure to other viral diseases Acute otitis media, left Unspecified otitis media documented in this encounter [facility] note* Diagnosis Class 2 obesity with body mass index (BMI) of 37.0 to 37.9 in adult, unspecified obesity type, unspecified whether serious comorbidity present- Primary documented in this encounter [facility] note* Diagnosis Class 2 obesity with body mass index (BMI) of 37.0 to 37.9 in adult, unspecified obesity type, unspecified whether serious comorbidity present documented in this encounter [facility] noteNo assessment information availableWMercy Health [facility] Work Phone: Evaluation note* Diagnosis Class 2 obesity with body mass index (BMI) of 37.0 to 37.9 in adult, unspecified obesity type, unspecified whether serious comorbidity present- Primary Obesity, Class I, BMI 30-34.9 Obesity, unspecified documented in this encounter [facility] note* Diagnosis Class 1 obesity with body mass index (BMI) of 34.0 to 34.9 in adult, unspecified obesity type, unspecified whether serious comorbidity present- Primary [facility] Diagnosis Class 1 obesity with body mass index (BMI) of 34.0 to 34.9 in adult, unspecified obesity type, unspecified whether serious comorbidity present- Primary [facility] Diagnosis Acute pain of right shoulder documented in this encounter [facility] note* Diagnosis Acute left ankle pain documented in this encounter [facility] note* Diagnosis Acute pain of left shoulder [facility]* Diagnosis Class 1 obesity with body mass index (BMI) of 32.0 to 32.9 in adult, unspecified obesity type, unspecified whether serious comorbidity present- Primary [facility]* Diagnosis Encounter for gynecological examination (general) [...] prescribed contraceptive pill documented in this encounter [facility] note* Diagnosis Encounter for supervision of high [...] inoculation against influenza [facility] Diagnosis Elevated TSH- Primary Nonspecific abnormal results of thyroid function study 7 weeks gestation of state, incidental [facility] Diagnosis Elevated TSH- Primary Nonspecific abnormal results of thyroid function study documented in this encounter [facility] note* Diagnosis Inversion of both nipples- Primary [facility] Diagnosis Threatened in early ([facility])- Primary documented in this encounter [facility] Work Phone: Evaluation note* Diagnosis Encounter for supervision of high risk in first trimester, antepartum with uncertain dates in first trimester [facility] Diagnosis Encounter for supervision of high risk in first trimester, antepartum- Primary 7 weeks gestation of state, incidental Thyroid disease Unspecified disorder of thyroid [facility]* Diagnosis Encounter for supervision of high risk in first trimester, antepartum- Primary Obesity affecting in first trimester, unspecified obesity type Vaginal itching Pruritus of genital organs History of anxiety Personal history of other mental disorder Thyroid disease Unspecified disorder of thyroid 12 weeks gestation of state, incidental 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 [facility]* Diagnosis Encounter for screening for malformation using ultrasound- Primary 12 weeks gestation of state, incidental [facility] Diagnosis 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 Obesity affecting in first trimester, unspecified obesity type [facility]* Diagnosis Yeast vaginitis- Primary Candidiasis of vulva and vagina documented [facility]* Diagnosis Viral illness- Primary Unspecified viral infection, in conditions classified elsewhere and of unspecified site [facility]* Diagnosis Encounter for supervision of high risk in first trimester, antepartum- Primary Elevated TSH Nonspecific abnormal results of thyroid function study 16 weeks gestation of state, incidental [facility]* Diagnosis Encounter for screening for malformation using ultrasound- Primary 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 Obesity affecting in first trimester, unspecified obesity type 16 weeks gestation of state, incidental [facility]* Diagnosis Supervision of high risk in [...] other mental disorder [facility]* Diagnosis Encounter for anatomic survey- Primary Thyroid disease Unspecified disorder of thyroid 20 weeks gestation of state, incidental Obesity affecting in second trimester, unspecified obesity type 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 [facility]* Diagnosis Elevated TSH Nonspecific abnormal results of thyroid function study 7 weeks gestation of state, incidental documented in this encounter [facility] note* Diagnosis Single umbilical artery affecting management of mother, antepartum, single gestation- Primary 21 weeks gestation of state, incidental documented in this encounter [facility] note* Diagnosis heart rate/rhythm abnormality affecting management of mother- Primary Abnormality in heart rate/rhythm, unspecified as to episode of care or not applicable 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 [facility]* Diagnosis 24 weeks gestation of - Primary state, incidental Supervision of high risk in second trimester Unspecified high-risk Obesity affecting in first trimester, unspecified obesity type History of pre-eclampsia Personal history of other genital system and obstetric disorders Rubella non-immune status, antepartum Other specified complication, antepartum Screening for diabetes mellitus documented in this encounter [facility] note* Diagnosis History of pre-eclampsia Personal history of other genital system and obstetric disorders Abdominal cramping affecting (HCC) Encounter for ultrasound to check growth ([facility])- Primary Encounter for routine screening for malformation using ultrasonics Single umbilical artery affecting management of mother, antepartum, single gestation (HCC) 28 weeks gestation of (HCC) state, incidental High-risk in third trimester ([facility])- Primary History of pre-eclampsia Personal history of [...] thyroid function study [facility]* Diagnosis History of pre-eclampsia Personal history [...] after PP visit. Declines LARC at delivery, [facility] paper for this signed. documented [facility] this [facility]* Diagnosis History of pre-eclampsia Personal history of other genital system and obstetric disorders Abdominal cramping affecting (HCC) High-risk in third trimester ([facility])- Primary History of pre-eclampsia Personal history of other genital system and obstetric disorders Single umbilical artery affecting management of mother, antepartum, single gestation (HCC) 28 weeks gestation of ([facility]) state, incidental Need for vaccination Need for prophylactic vaccination and inoculation against unspecified single disease Encounter for other general counseling or advice on contraception Elevated TSH Nonspecific abnormal results of thyroid function study Acute otitis media, right- Primary Unspecified otitis media URI, acute Acute upper respiratory infections of unspecified site documented in this encounter [facility] note* Diagnosis Single umbilical artery (HCC)- 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 History of pre-eclampsia Personal history of other genital system and obstetric disorders Abdominal cramping affecting (HCC) High-risk in third trimester ([facility])- Primary History of pre-eclampsia Personal history of other genital system and obstetric disorders Single umbilical artery affecting management of mother, antepartum, single gestation (HCC) 28 weeks gestation of ([facility]) state, incidental Need for vaccination Need for prophylactic vaccination and inoculation against unspecified single disease Encounter for other general counseling or advice on contraception Elevated TSH Nonspecific abnormal results of thyroid function study documented in this encounter [facility] note* Diagnosis History of pre-eclampsia Personal history of other genital system and obstetric disorders Abdominal cramping affecting (HCC) High-risk in third trimester ([facility])- Primary History of pre-eclampsia Personal history of other genital system and obstetric disorders Single umbilical artery affecting management of mother, antepartum, single gestation (HCC) 28 weeks gestation of ([facility]) state, incidental Need for vaccination Need for prophylactic vaccination and inoculation against unspecified single disease Encounter for other general counseling or advice on contraception Elevated TSH Nonspecific abnormal results of thyroid function study Supervision of high risk in third trimester ([facility])- Primary Unspecified high-risk 30 weeks gestation of ([facility]) state, incidental Obesity affecting in first trimester, unspecified obesity type ([facility]) Elevated TSH Nonspecific abnormal results of thyroid function study Single umbilical artery affecting management of mother, antepartum, single gestation (HCC) History of pre-eclampsia Personal history of other genital system and obstetric disorders Rubella non-immune status, antepartum (HCC) Other specified complication, antepartum History of anxiety Personal history of other mental disorder [facility] History of pre-eclampsia Personal history of other genital system and obstetric disorders Abdominal cramping affecting ([facility]) High-risk in third trimester ([facility])- Primary History of pre-eclampsia Personal history of other genital system and obstetric disorders Single umbilical artery affecting management of mother, antepartum, single gestation (HCC) 28 weeks gestation of ([facility]) state, incidental Need for vaccination Need for prophylactic vaccination and inoculation against unspecified single disease Encounter for other general counseling or advice on contraception Elevated TSH Nonspecific abnormal results of thyroid function study Supervision of high risk in third trimester ([facility])- Primary Unspecified high-risk History of pre-eclampsia Personal history of other genital system and obstetric disorders Elevated TSH Nonspecific abnormal results of thyroid function study Single umbilical artery affecting management of mother, antepartum, single gestation (HCC) 32 weeks gestation of ([facility]) state, incidental * Assessment & Plan Note [...] affecting management of mother, antepartum, single gestation ([facility]) Growth us q4 weeks documented in this encounter [facility] note* Diagnosis History of pre-eclampsia Personal history of other genital system and obstetric disorders Abdominal cramping affecting (HCC) High-risk in third trimester ([facility])- Primary History of pre-eclampsia Personal history of other genital system and obstetric disorders Single umbilical artery affecting management of mother, antepartum, single gestation (HCC) 28 weeks gestation of ([facility]) state, incidental Need for vaccination Need for prophylactic vaccination and inoculation against unspecified single disease Encounter for other general counseling or advice on contraception Elevated TSH Nonspecific abnormal results of thyroid function study Encounter for ultrasound to check growth ([facility])- Primary Encounter for routine screening for malformation using ultrasonics Single umbilical artery affecting management of mother, antepartum, single gestation (HCC) 32 weeks gestation of ([facility]) state, incidental Supervision of high risk in third trimester ([facility])- Primary Unspecified high-risk History of pre-eclampsia Personal history of other genital system and obstetric disorders Elevated TSH Nonspecific abnormal results of thyroid function study Single umbilical artery affecting management of mother, antepartum, single gestation ([facility]) 32 weeks gestation of ([facility]) state, incidental documented in this encounter [facility] note* Diagnosis History of pre-eclampsia Personal history of other genital system and obstetric disorders Abdominal cramping affecting ([facility]) High-risk in third trimester ([facility])- Primary History of pre-eclampsia Personal history of other genital system and obstetric disorders Single umbilical artery affecting management of mother, antepartum, single gestation ([facility]) 28 weeks gestation of ([facility]) state, incidental Need for vaccination Need for prophylactic vaccination and inoculation against unspecified single disease Encounter for other general counseling or advice on contraception Elevated TSH Nonspecific abnormal results of thyroid function study Supervision of high risk in third trimester ([facility])- Primary Unspecified high-risk History of pre-eclampsia Personal history of other genital system and obstetric disorders Elevated TSH Nonspecific abnormal results of thyroid function study Single umbilical artery affecting management of mother, antepartum, single gestation (HCC) 32 weeks gestation of ([facility]) state, incidental 34 weeks gestation of ([facility])- Primary state, incidental Supervision of high risk in third trimester ([facility]) Unspecified high-risk History of pre-eclampsia Personal history of other genital system and obstetric disorders Obesity affecting in third trimester, unspecified obesity type ([facility]) documented in this encounter [facility] note* Diagnosis History of pre-eclampsia Personal history of other genital system and obstetric disorders Abdominal cramping affecting (HCC) High-risk in third trimester ([facility])- Primary History of pre-eclampsia Personal history of other genital system and obstetric disorders Single umbilical artery affecting management of mother, antepartum, single gestation (HCC) 28 weeks gestation of ([facility]) state, incidental Need for vaccination Need for prophylactic vaccination and inoculation against unspecified single disease Encounter for other general counseling or advice on contraception Elevated TSH Nonspecific abnormal results of thyroid function study Supervision of high risk in third trimester ([facility])- Primary Unspecified high-risk History of pre-eclampsia Personal history of other genital system and obstetric disorders Elevated TSH Nonspecific abnormal results of thyroid function study Single umbilical artery affecting management of mother, antepartum, single gestation ([facility]) 32 weeks gestation of ([facility]) state, incidental 36 weeks gestation of ([facility])- Primary state, incidental Supervision of high risk in third trimester ([facility]) Unspecified high-risk History of pre-eclampsia Personal history of other genital system and obstetric disorders documented in this encounter [facility] note* Diagnosis History of pre-eclampsia Personal history of other genital system and obstetric disorders Abdominal cramping affecting ([facility]) High-risk in third trimester ([facility])- Primary History of pre-eclampsia Personal history of other genital system and obstetric disorders Single umbilical artery affecting management of mother, antepartum, single gestation (HCC) 28 weeks gestation of ([facility]) state, incidental Need for vaccination Need for prophylactic vaccination and inoculation against unspecified single disease Encounter for other general counseling or advice on contraception Elevated TSH Nonspecific abnormal results of thyroid function study Supervision of high risk in third trimester ([facility])- Primary Unspecified high-risk History of pre-eclampsia Personal history of other genital system and obstetric disorders Elevated TSH Nonspecific abnormal results of thyroid function study Single umbilical artery affecting management of mother, antepartum, single gestation ([facility]) 32 weeks gestation of ([facility]) state, incidental Obesity affecting in first trimester, unspecified obesity type ([facility])- Primary Single umbilical artery affecting management of mother, antepartum, single gestation ([facility]) documented in this encounter [facility] note* Diagnosis History of pre-eclampsia Personal history [...] affecting in third trimester, unspecified obesity type ([facility]) 37 weeks gestation of ([facility]) state, incidental Single umbilical artery affecting management of mother, antepartum, single gestation (HCC) Rubella non-immune status, antepartum (HCC) Other specified complication, antepartum Elevated TSH Nonspecific abnormal results of thyroid function study History of anxiety Personal history of other mental disorder documented in this encounter [facility] Discharge instructions* Attachments The following attachments cannot be sent through Care Everywhere. * Bleeding in Early ED ([facility]) [facility]: Re[facility] 3 for referral (narrative)* Diagnostic Procedure Only (Routine) - Authorized Specialty Diagnoses / Procedures Referred By Rosalie gasca Referred To Contact US IMAGING Diagnoses Secondary amenorrhea Procedures US FEMALE PELVIS TRANSVAG US TRANSVAGINAL Mariana Hilario APRN.CNM [address] [place] [address] Us Imaging Referral ID Status Reason Start Date Expiration Date Visits Requested Visits Authorized [id number] Authorized Auto-Generat ed Referral 01/10/2022 02/09/2023 1 1 [facility] for referral (narrative)* Outpatient Procedure (Routine) - Closed Specialty Diagnoses / Procedures Referred By Contac t Referred To [facility] Diagnoses Screening for ischemic heart disease Procedures ECG COMPLETE ECG ROUTINE ECG W/LEAST 12 LDS W/I&R Lavern Lim MD [address] [place] [address] [facility] [address] [place] [address] Referral ID Status Reason Start Date Expiration Date V isits Requested Visits Authorized [id number] Closed Auto-Generate d Referral 05/30/2022 05/30/2023 1 1 [facility] for referral (narrative)* Diagnostic Procedure Only (Urgent) - Closed Specialty Diagnoses / Procedures Referred By Contac t Referred To Contact XR IMAGING Diagnoses Acute pain of right shoulder Procedures XR SHOULDER GENERAL 3V OR MORE AP/TRUE AP/OTHER RIGHT RADEX SHOULDER COMPLETE MINIMUM 2 VIEWS Jose Brink APRN.DESTATICIZER FEEDER [address] [place] [address] [place] [id number] Referral ID Status Reason Start Date Expiration Date V isits Requested Visits Authorized [id number] Closed Auto-Generate d Referral 08/02/2021 09/01/2022 1 1 [facility] for referral (narrative)* Diagnostic Procedure Only (Routine) - Closed Specialty Diagnoses / Procedures Referred By Contac t Referred To Contact XR IMAGING Diagnoses Acute left ankle pain Procedures XR ANKLE GENERAL 3V AP/LAT/OBL LEFT X-RAY ANKLE MINIMUM 3 VIEWS Aravind Varma APRN.CNP [address] [place] [address] [place] [id number] Referral ID Status Reason Start Date Expiration Date V isits Requested Visits Authorized [id number] Closed Auto-Generate d Referral 02/06/2021 03/08/2022 1 1 * Diagnostic Procedure Only (Routine) - Closed Specialty Diagnoses / Procedures Referred By Contac t Referred To Contact XR IMAGING Diagnoses Acute left ankle pain Procedures XR FOOT GENERAL 3V AP/LAT/OBL LEFT X-RAY FOOT MINIMUM 3 VIEWS Aravind Varma APRN.DESTATICIZER FEEDER [address] [place] [address] [place] [id number] Referral ID Status Reason Start Date Expiration Date V isits Requested Visits Authorized [id number] Closed Auto-Generate d Referral 02/06/2021 03/08/2022 1 1 [facility] for referral (narrative)* Diagnostic Procedure Only (Urgent) - Closed Specialty Diagnoses / Procedures Referred By Contac t Referred To Contact XR IMAGING Diagnoses Acute pain of left shoulder Procedures XR SHOULDER GENERAL 3V OR MORE AP/TRUE AP/OTHER LEFT RADEX SHOULDER COMPLETE MINIMUM 2 VIEWS Merly Jefferson APRN.DESTATICIZER FEEDER [address] [place] [address] Xr Imaging [facility] Referral ID Status Reason Start Date Expiration Date V isits Requested Visits Authorized [id number] Closed Auto-Generate d Referral 03/02/2021 04/01/2022 1 1 [facility] for referral (narrative)* Diagnostic Procedure Only (Routine) - Authorized Specialty Diagnoses / Procedures Referred By Contac t Referred To Contact BR IMAGING Diagnoses Inverted nipple Procedures US BREAST LTD LEFT US BREAST UNI REAL TIME WITH IMAGE LIMITED Mariana Hilario APRN.CNM [address] [place] [address] [facility] [address] [place] [address] Referral ID Status Reason Start Date Expiration Date Visits Requested Visits Authorized [id number] Authorized Auto-Generat ed Referral 12/22/2024 1 1 * Diagnostic Procedure Only (Routine) - Authorized Specialty Diagnoses / Procedures Referred By Contac t Referred To Contact BR IMAGING Diagnoses Inverted nipple Procedures US BREAST LTD RIGHT US BREAST UNI REAL TIME WITH IMAGE LIMITED Mariana Hilario APRN.CNM [address] [place] [address] [facility] [address] [place] [address] Referral ID Status Reason Start Date Expiration Date Visits Requested Visits Authorized [id number] Authorized Auto-Generat ed Referral 4 12/22/2024 1 1 [facility] for referral (narrative)* Diagnostic Procedure Only (Routine) - Authorized Specialty Diagnoses / Procedures Referred By Contac t Referred To Contact [facility] Diagnoses Encounter for supervision of high risk in first trimester, antepartum with uncertain dates in first trimester Procedures PELVIC US WHI US PELVIC NONOBSTETRIC REAL-TIME IMAGE COMPLETE Elkin Martinez APRN.DESTATICIZER FEEDER [address] [place] [address] [facility] [address] [place] [address] Referral ID Status Reason Start Date Expiration Date Visits Requested Visits Authorized [id number] Authorized Auto-Generat ed Referral 4 12/06/2024 1 1 * Diagnostic Procedure Only (Routine) - Closed Specialty Diagnoses / Procedures Referred By Contac t Referred To Contact [facility] Diagnoses with uncertain dates in first trimester Procedures OBSTETRIC ULTRASOUND WHI US PREG UTERUS AFTER 1ST TRIMEST GESTATION Elkin Martinez APRN.CNP [address] [place] [address] [facility] [address] [place] [address] Referral ID Status Reason Start Date Expiration Date V isits Requested Visits Authorized [id number] Closed Auto-Generate d Referral 12/07/2023 02/05/2024 1 1 [facility] for referral (narrative)* Diagnostic Procedure Only (Routine) - New Request Specialty Diagnoses / Procedures Referred By Rosalie t Referred To Contact BR IMAGING Diagnoses Inversion of both nipples Procedures MYESHA DIAGNOSTIC BILATERAL DIAGNOSTIC MAMMOGRAPHY COMPUTER-AIDED DETCJ Mariana Hilario APRN.CNM [address] [place] [address] [facility] [address] [place] [address] Referral ID Status Reason Start Date Expiration Date Visits Requested Visits Authorized [id number] New Request Auto-Generat ed Referral 12/14/2023 01/12/2025 1 1 [facility] for referral (narrative)* Diagnostic Procedure Only (Routine) - Authorized Specialty Diagnoses / Procedures Referred By Rosalie t Referred To Contact [facility] Diagnoses 7 weeks gestation of Encounter for supervision of high risk in first trimester, antepartum Thyroid disease Procedures NUCHAL TRANSLUCENCY WHI US NUCHAL TRANSLUCENCY GESTATION Susana Castillo MD [address] [place] [address] [facility] [address] [place] [address] Referral ID Status Reason Start Date Expiration Date Visits Requested Visits Authorized [id number] Authorized Auto-Generat ed Referral 12/27/2024 1 1 * Diagnostic Procedure Only (Routine) - Authorized Specialty Diagnoses / Procedures Referred By Rosalie gasca Referred To Contact [facility] Diagnoses 7 weeks gestation of Encounter for supervision of high risk in first trimester, antepartum Thyroid disease Procedures OBSTETRIC ULTRASOUND WHI US PREG UTERUS AFTER 1ST TRIMEST GESTATION Susana Castillo MD [address] [place] [address] [facility] [address] [place] [address] Referral ID Status Reason Start Date Expiration Date Visits Requested Visits Authorized [id number] Authorized Auto-Generat ed Referral 4 12/27/2024 1 1 [facility] for referral (narrative)* Diagnostic Procedure Only (Routine) - Authorized Specialty Diagnoses / Procedures Referred By Contac t Referred To Contact [facility] Diagnoses Two vessel cord Obesity affecting in first trimester, unspecified obesity type Procedures OBSTETRIC ULTRASOUND WHI US PREG UTERUS AFTER 1ST TRIMEST GESTATION Elsa Chaudhary APRN.CNM [address] [place] [address] [facility] [address] [place] [address] Referral ID Status Reason Start Date Expiration Date Visits Requested Visits Authorized [id number] Authorized Auto-Generat ed Referral 4 01/30/2025 1 1 [facility] for referral (narrative)No reason for referral information availableWMercy [facility] Work Phone: Reason for visit Narrative* Diagnostic Procedure Only (Urgent) - Closed Specialty Diagnoses / Procedures Referred By Contac t Referred To Contact XR IMAGING Diagnoses Acute pain of right shoulder Procedures XR SHOULDER GENERAL 3V OR MORE AP/TRUE AP/OTHER RIGHT RADEX SHOULDER COMPLETE MINIMUM 2 VIEWS Jose Birnk, CLINICAL REVIEWER.DESTATICIZER FEEDER [address] [place] [address] [place] [id number] Referral ID Status Reason Start Date Expiration Date V isits Requested Visits Authorized [id number] Closed Auto-Generate d Referral 08/02/2021 09/01/2022 1 1 [facility] for visit Narrative* Diagnostic Procedure Only (Routine) - Closed Specialty Diagnoses / Procedures Referred By Contac t Referred To Contact XR IMAGING Diagnoses Acute left ankle pain Procedures XR ANKLE GENERAL 3V AP/LAT/OBL LEFT X-RAY ANKLE MINIMUM 3 VIEWS Aravind Varma, CLINICAL REVIEWER.DESTATICIZER FEEDER [address] [place] [address] [place] [address] Referral ID Status Reason Start Date Expiration Date V isits Requested Visits Authorized [id number] Closed Auto-Generate d Referral 02/06/2021 03/08/2022 1 1 [facility] for visit Narrative* Diagnostic Procedure Only (Urgent) - Closed Specialty Diagnoses / Procedures Referred By Contac t Referred To Contact XR IMAGING Diagnoses Acute pain of left shoulder Procedures XR SHOULDER GENERAL 3V OR MORE AP/TRUE AP/OTHER LEFT RADEX SHOULDER COMPLETE MINIMUM 2 VIEWS Merly Jefferson, CLINICAL REVIEWER.DESTATICIZER FEEDER [address] [place] [address] [place] [id number] Referral ID Status Reason Start Date Expiration Date V isits Requested Visits Authorized [id number] Closed Auto-Generate d Referral 03/02/2021 04/01/2022 1 1 [facility] for visit Narrative* Diagnostic Procedure Only (Routine) - Closed Specialty Diagnoses / Procedures Referred By Contac t Referred To Contact [facility] Diagnoses Encounter for supervision of high risk in first trimester, antepartum with uncertain dates in first trimester Procedures PELVIC US WHI US PELVIC NONOBSTETRIC REAL-TIME IMAGE COMPLETE Elkin Martinez, CLINICAL REVIEWER.DESTATICIZER FEEDER [address] [place] [address] [facility] [address] [place] [address] Referral ID Status Reason Start Date Expiration Date V isits Requested Visits Authorized [id number] Closed Auto-Generate d Referral 12/28/2023 12/06/2024 1 1 [facility] Summary Purpose Family History No Family History Records FoundNo Family History Records FoundNo Family History Records FoundNo Family History Records FoundNo Family History Records FoundNo Family History Records FoundNo Family History Records FoundNo Family History Records FoundNo Family History Records Found Advance Directives Documents on File Type Date Recorded 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 [employer]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 [employer] Expl anation Advance Directive(s) 01/18/2020 5:29 PM Advance Directive(s) 10/31/2019 4:18 AM Advance Directive(s) 10/07/2019 10:09 AM Advance Directive(s) 08/13/2019 1:35 PM Advance Directive(s) 08/12/2019 11:42 PM Advance Directive(s) 08/10/2019 9:45 PM Advance Directive(s) 11/07/2018 1:42 PM Advance Directive(s) 09/20/2017 3:19 PM Advance Directive Response Recorded Date/ Time Living Will No June 05, 2023 6:42am Power of Director Sports No June 04 6:42am Reason for Referral [...] MINUTES Mariana Hilario APRN.CNM [address] [place] [address] Referral ID Status Reason Start Date Expiration Date Visits Requested Visits Authorized [id number] Authorized PCP Requested Referral 2 02/03/2023 1 [...] MINUTES Mariana Hilario APRN.CNM [address] [place] [address] Referral ID Status Reason Start Date Expiration Date Visits Requested Visits Authorized [id number] Authorized PCP Requested Referral 2 02/03/2023 1 1 Specialty Diagnoses / Procedures Referred By Rosalie t Referred To Contact Diagnoses Class 2 obesity due to excess calories without serious comorbidity with body mass index (BMI) of 39.0 to 39.9 in adult Procedures ENDOCRINOLOGY DIETITIAN VISIT (MNT) OFFICE/OUTPATIENT NEW HIGH MDM 60-74 MINUTES Lupe Grant MD [address] [place] [address] Referral ID Status Reason Start Date Expiration Date Visits Requested Visits Authorized [id number] Authorized PCP Requested Referral 02/23/2022 02/23/2023 1 1 Specialty Diagnoses / Procedures Referred By Contac t Referred To Contact Diagnoses Class 1 obesity with body mass index (BMI) of 34.0 to 34.9 in adult, unspecified obesity type, unspecified whether serious comorbidity present Procedures ENDOCRINOLOGY DIETITIAN VISIT (MNT) MEDICAL NUTRITION ASSMT&IVNTJ INDIV EACH 15 MA MEDICAL NUTRITION ASSMT&IVNTJ INDIV EACH 15 MA MEDICAL NUTRITION ASSMT&IVNTJ INDIV EACH 15 MA MEDICAL NUTRITION ASSMT&IVNTJ INDIV EACH 15 MA Ed Vaz APRN.DESTATICIZER FEEDER [address] [place] [address] Referral ID Status Reason Start Date Expiration Date Visits Requested Visits Authorized [id number] Authorized PCP Requested Referral 10/12/2022 10/12/2023 1 1 Specialty Diagnoses / Procedures Referred By Contac t Referred To Contact Endocrinology Diagnoses Elevated TSH 7 weeks gestation of Procedures CONSULT TO ENDOCRINOLOGY OFFICE/OUTPATIENT [facility] 60 MINUTES Elkin Martinez APRN.DESTATICIZER FEEDER [address] [place] [address] Referral ID Status Reason Start Date Expiration Date Visits Requested Visits Authorized [id number] Authorized PCP Requested Referral 12/10/2023 12/09/2024 1 [...] and content) DATE CREATED AUTHOR 07/25/2017 [facility] DATE CREATED AUTHOR AUTHOR'S ORGANIZ ATION 09/14/2018 [employer] DATE CREATED AUTHOR AUTHOR'S ORGANIZ ATION 03/21/2021 [facility] DATE CREATED AUTHOR AUTHOR'S ORGANIZ ATION 12/25/2023 [facility] DATE CREATED AUTHOR AUTHOR'S ORGANIZ ATION 01/21/2024 [facility] DATE CREATED AUTHOR AUTHOR'S ORGANIZ ATION 05/19/2024 [facility] DATE CREATED AUTHOR AUTHOR'S ORGANIZ ATION 05/20/2024 [facility] DATE CREATED AUTHOR AUTHOR'S ORGANIZ ATION 07/26/2024 [facility] DATE CREATED AUTHOR AUTHOR'S ORGANIZ ATION 07/29/2024 [facility] Source Comments (unrecognize d section and content) In the event this informatio n is protected by the Federal Confidentiality of Alcohol and Drug Abuse Patient Records regulations: The Federal rules restrict any use of the information to criminally investigate or prosecute any alcohol or drug abuse patient.[facility] the event this information is protected by the Federal Confidentiality of Alcohol and Drug Abuse Patient Records regulations: The Federal rules restrict any use of the information to criminally investigate or prosecute any alcohol or drug abuse patient.[facility] Center[facility] the event this information is protected by the Federal Confidentiality of Alcohol and Drug Abuse Patient Records regulations: The Federal rules restrict any use of the information to criminally investigate or prosecute any alcohol or drug abuse patient.[facility] Center[facility] the event this information is protected by the Federal Confidentiality of Alcohol and Drug Abuse Patient Records regulations: The Federal rules restrict any use of the information to criminally investigate or prosecute any alcohol or drug abuse patient.[facility] Center[facility] the event this information is protected by the Federal Confidentiality of Alcohol and Drug Abuse Patient Records regulations: The Federal rules restrict any use of the information to criminally investigate or prosecute any alcohol or drug abuse patient.[facility] CenterIn the event this information is protected by the Federal Confidentiality of Alcohol and Drug Abuse Patient Records regulations: The Federal rules restrict any use of the information to criminally investigate or prosecute any alcohol or drug abuse patient.[facility] Center[facility] the event this information is protected by the Federal Confidentiality of Alcohol and Drug Abuse Patient Records regulations: The Federal rules restrict any use of the information to criminally investigate or prosecute any alcohol or drug abuse patient.[facility] CenterIn the event this information is protected by the Federal Confidentiality of Alcohol and Drug Abuse Patient Records regulations: The Federal rules restrict any use of the information to criminally investigate or prosecute any alcohol or drug abuse patient.[facility] CenterIn the event this information is protected by the Federal Confidentiality of Alcohol and Drug Abuse Patient Records regulations: The Federal rules restrict any use of the information to criminally investigate or prosecute any alcohol or drug abuse patient.[facility] CenterIn the event this information is protected by the Federal Confidentiality of Alcohol and Drug Abuse Patient Records regulations: The Federal rules restrict any use of the information to criminally investigate or prosecute any alcohol or drug abuse patient.[facility] CenterIn the event this information is protected by the Federal Confidentiality of Alcohol and Drug Abuse Patient Records regulations: The Federal rules restrict any use of the information to criminally investigate or prosecute any alcohol or drug abuse patient.[facility] CenterIn the event this information is protected by the Federal Confidentiality of Alcohol and Drug Abuse Patient Records regulations: The Federal rules restrict any use of the information to criminally investigate or prosecute any alcohol or drug abuse patient.[facility] CenterIn the event this information is protected by the Federal Confidentiality of Alcohol and Drug Abuse Patient Records regulations: The Federal rules restrict any use of the information to criminally investigate or prosecute any alcohol or drug abuse patient.[facility] Center[facility] the event this information is protected by the Federal Confidentiality of Alcohol and Drug Abuse Patient Records regulations: The Federal rules restrict any use of the information to criminally investigate or prosecute any alcohol or drug abuse patient.[facility] CenterIn the event this information is protected by the Federal Confidentiality of Alcohol and Drug Abuse Patient Records regulations: The Federal rules restrict any use of the information to criminally investigate or prosecute any alcohol or drug abuse patient.[facility] CenterIn the event this information is protected by the Federal Confidentiality of Alcohol and Drug Abuse Patient Records regulations: The Federal rules restrict any use of the information to criminally investigate or prosecute any alcohol or drug abuse patient.[facility] CenterIn the event this information is protected by the Federal Confidentiality of Alcohol and Drug Abuse Patient Records regulations: The Federal rules restrict any use of the information to criminally investigate or prosecute any alcohol or drug abuse patient.[facility] CenterIn the event this information is protected by the Federal Confidentiality of Alcohol and Drug Abuse Patient Records regulations: The Federal rules restrict any use of the information to criminally investigate or prosecute any alcohol or drug abuse patient.[facility] CenterIn the event this information is protected by the Federal Confidentiality of Alcohol and Drug Abuse Patient Records regulations: The Federal rules restrict any use of the information to criminally investigate or prosecute any alcohol or drug abuse patient.[facility] CenterIn the event this information is protected by the Federal Confidentiality of Alcohol and Drug Abuse Patient Records regulations: The Federal rules restrict any use of the information to criminally investigate or prosecute any alcohol or drug abuse patient.[facility] CenterIn the event this information is protected by the Federal Confidentiality of Alcohol and Drug Abuse Patient Records regulations: The Federal rules restrict any use of the information to criminally investigate or prosecute any alcohol or drug abuse patient.[facility] CenterIn the event this information is protected by the Federal Confidentiality of Alcohol and Drug Abuse Patient Records regulations: The Federal rules restrict any use of the information to criminally investigate or prosecute any alcohol or drug abuse patient.[facility] CenterIn the event this information is protected by the Federal Confidentiality of Alcohol and Drug Abuse Patient Records regulations: The Federal rules restrict any use of the information to criminally investigate or prosecute any alcohol or drug abuse patient.[facility] CenterIn the event this information is protected by the Federal Confidentiality of Alcohol and Drug Abuse Patient Records regulations: The Federal rules restrict any use of the information to criminally investigate or prosecute any alcohol or drug abuse patient.[facility] CenterIn the event this information is protected by the Federal Confidentiality of Alcohol and Drug Abuse Patient Records regulations: The Federal rules restrict any use of the information to criminally investigate or prosecute any alcohol or drug abuse patient.[facility] CenterIn the event this information is protected by the Federal Confidentiality of Alcohol and Drug Abuse Patient Records regulations: The Federal rules restrict any use of the information to criminally investigate or prosecute any alcohol or drug abuse patient.[facility] CenterIn the event this information is protected by the Federal Confidentiality of Alcohol and Drug Abuse Patient Records regulations: The Federal rules restrict any use of the information to criminally investigate or prosecute any alcohol or drug abuse patient.[facility] CenterIn the event this information is protected by the Federal Confidentiality of Alcohol and Drug Abuse Patient Records regulations: The Federal rules restrict any use of the information to criminally investigate or prosecute any alcohol or drug abuse patient.[facility] CenterIn the event this information is protected by the Federal Confidentiality of Alcohol and Drug Abuse Patient Records regulations: The Federal rules restrict any use of the information to criminally investigate or prosecute any alcohol or drug abuse patient.[facility] CenterIn the event this information is protected by the Federal Confidentiality of Alcohol and Drug Abuse Patient Records regulations: The Federal rules restrict any use of the information to criminally investigate or prosecute any alcohol or drug abuse patient.[facility] CenterIn the event this information is protected by the Federal Confidentiality of Alcohol and Drug Abuse Patient Records regulations: The Federal rules restrict any use of the information to criminally investigate or prosecute any alcohol or drug abuse patient.[facility] CenterIn the event this information is protected by the Federal Confidentiality of Alcohol and Drug Abuse Patient Records regulations: The Federal rules restrict any use of the information to criminally investigate or prosecute any alcohol or drug abuse patient.[facility] CenterIn the event this information is protected by the Federal Confidentiality of Alcohol and Drug Abuse Patient Records regulations: The Federal rules restrict any use of the information to criminally investigate or prosecute any alcohol or drug abuse patient.[facility] CenterIn the event this information is protected by the Federal Confidentiality of Alcohol and Drug Abuse Patient Records regulations: The Federal rules restrict any use of the information to criminally investigate or prosecute any alcohol or drug abuse patient.[facility] CenterIn the event this information is protected by the Federal Confidentiality of Alcohol and Drug Abuse Patient Records regulations: The Federal rules restrict any use of the information to criminally investigate or prosecute any alcohol or drug abuse patient.[facility] CenterIn the event this information is protected by the Federal Confidentiality of Alcohol and Drug Abuse Patient Records regulations: The Federal rules restrict any use of the information to criminally investigate or prosecute any alcohol or drug abuse patient.[facility] CenterIn the event this information is protected by the Federal Confidentiality of Alcohol and Drug Abuse Patient Records regulations: The Federal rules restrict any use of the information to criminally investigate or prosecute any alcohol or drug abuse patient.[facility] CenterIn the event this information is protected by the Federal Confidentiality of Alcohol and Drug Abuse Patient Records regulations: The Federal rules restrict any use of the information to criminally investigate or prosecute any alcohol or drug abuse patient.[facility] CenterIn the event this information is protected by the Federal Confidentiality of Alcohol and Drug Abuse Patient Records regulations: The Federal rules restrict any use of the information to criminally investigate or prosecute any alcohol or drug abuse patient.[facility] CenterIn the event this information is protected by the Federal Confidentiality of Alcohol and Drug Abuse Patient Records regulations: The Federal rules restrict any use of the information to criminally investigate or prosecute any alcohol or drug abuse patient.[facility] CenterIn the event this information is protected by the Federal Confidentiality of Alcohol and Drug Abuse Patient Records regulations: The Federal rules restrict any use of the information to criminally investigate or prosecute any alcohol or drug abuse patient.[facility] CenterIn the event this information is protected by the Federal Confidentiality of Alcohol and Drug Abuse Patient Records regulations: The Federal rules restrict any use of the information to criminally investigate or prosecute any alcohol or drug abuse patient.[facility] CenterIn the event this information is protected by the Federal Confidentiality of Alcohol and Drug Abuse Patient Records regulations: The Federal rules restrict any use of the information to criminally investigate or prosecute any alcohol or drug abuse patient.[facility] CenterIn the event this information is protected by the Federal Confidentiality of Alcohol and Drug Abuse Patient Records regulations: The Federal rules restrict any use of the information to criminally investigate or prosecute any alcohol or drug abuse patient.[facility] CenterIn the event this information is protected by the Federal Confidentiality of Alcohol and Drug Abuse Patient Records regulations: The Federal rules restrict any use of the information to criminally investigate or prosecute any alcohol or drug abuse patient.[facility] CenterIn the event this information is protected by the Federal Confidentiality of Alcohol and Drug Abuse Patient Records regulations: The Federal rules restrict any use of the information to criminally investigate or prosecute any alcohol or drug abuse patient.[facility] CenterIn the event this information is protected by the Federal Confidentiality of Alcohol and Drug Abuse Patient Records regulations: The Federal rules restrict any use of the information to criminally investigate or prosecute any alcohol or drug abuse patient.[facility] CenterIn the event this information is protected by the Federal Confidentiality of Alcohol and Drug Abuse Patient Records regulations: The Federal rules restrict any use of the information to criminally investigate or prosecute any alcohol or drug abuse patient.[facility] CenterIn the event this information is protected by the Federal Confidentiality of Alcohol and Drug Abuse Patient Records regulations: The Federal rules restrict any use of the information to criminally investigate or prosecute any alcohol or drug abuse patient.[facility] CenterIn the event this information is protected by the Federal Confidentiality of Alcohol and Drug Abuse Patient Records regulations: The Federal rules restrict any use of the information to criminally investigate or prosecute any alcohol or drug abuse patient.[facility] CenterIn the event this information is protected by the Federal Confidentiality of Alcohol and Drug Abuse Patient Records regulations: The Federal rules restrict any use of the information to criminally investigate or prosecute any alcohol or drug abuse patient.[facility] CenterIn the event this information is protected by the Federal Confidentiality of Alcohol and Drug Abuse Patient Records regulations: The Federal rules restrict any use of the information to criminally investigate or prosecute any alcohol or drug abuse patient.[facility] CenterIn the event this information is protected by the Federal Confidentiality of Alcohol and Drug Abuse Patient Records regulations: The Federal rules restrict any use of the information to criminally investigate or prosecute any alcohol or drug abuse patient.[facility] CenterIn the event this information is protected by the Federal Confidentiality of Alcohol and Drug Abuse Patient Records regulations: The Federal rules restrict any use of the information to criminally investigate or prosecute any alcohol or drug abuse patient.[facility] CenterIn the event this information is protected by the Federal Confidentiality of Alcohol and Drug Abuse Patient Records regulations: The Federal rules restrict any use of the information to criminally investigate or prosecute any alcohol or drug abuse patient.[facility] CenterIn the event this information is protected by the Federal Confidentiality of Alcohol and Drug Abuse Patient Records regulations: The Federal rules restrict any use of the information to criminally investigate or prosecute any alcohol or drug abuse patient.[facility] CenterIn the event this information is protected by the Federal Confidentiality of Alcohol and Drug Abuse Patient Records regulations: The Federal rules restrict any use of the information to criminally investigate or prosecute any alcohol or drug abuse patient.[facility] CenterIn the event this information is protected by the Federal Confidentiality of Alcohol and Drug Abuse Patient Records regulations: The Federal rules restrict any use of the information to criminally investigate or prosecute any alcohol or drug abuse patient.[facility] CenterIn the event this information is protected by the Federal Confidentiality of Alcohol and Drug Abuse Patient Records regulations: The Federal rules restrict any use of the information to criminally investigate or prosecute any alcohol or drug abuse patient.[facility] CenterIn the event this information is protected by the Federal Confidentiality of Alcohol and Drug Abuse Patient Records regulations: The Federal rules restrict any use of the information to criminally investigate or prosecute any alcohol or drug abuse patient.[facility] CenterIn the event this information is protected by the Federal Confidentiality of Alcohol and Drug Abuse Patient Records regulations: The Federal rules restrict any use of the information to criminally investigate or prosecute any alcohol or drug abuse patient.[facility] CenterIn the event this information is protected by the Federal Confidentiality of Alcohol and Drug Abuse Patient Records regulations: The Federal rules restrict any use of the information to criminally investigate or prosecute any alcohol or drug abuse patient.[facility] CenterIn the event this information is protected by the Federal Confidentiality of Alcohol and Drug Abuse Patient Records regulations: The Federal rules restrict any use of the information to criminally investigate or prosecute any alcohol or drug abuse patient.[facility] CenterIn the event this information is protected by the Federal Confidentiality of Alcohol and Drug Abuse Patient Records regulations: The Federal rules restrict any use of the information to criminally investigate or prosecute any alcohol or drug abuse patient.[facility] CenterIn the event this information is protected by the Federal Confidentiality of Alcohol and Drug Abuse Patient Records regulations: The Federal rules restrict any use of the information to criminally investigate or prosecute any alcohol or drug abuse patient.[facility] CenterIn the event this information is protected by the Federal Confidentiality of Alcohol and Drug Abuse Patient Records regulations: The Federal rules restrict any use of the information to criminally investigate or prosecute any alcohol or drug abuse patient.[facility] CenterIn the event this information is protected by the Federal Confidentiality of Alcohol and Drug Abuse Patient Records regulations: The Federal rules restrict any use of the information to criminally investigate or prosecute any alcohol or drug abuse patient.[facility] CenterIn the event this information is protected by the Federal Confidentiality of Alcohol and Drug Abuse Patient Records regulations: The Federal rules restrict any use of the information to criminally investigate or prosecute any alcohol or drug abuse patient.[facility] CenterIn the event this information is protected by the Federal Confidentiality of Alcohol and Drug Abuse Patient Records regulations: The Federal rules restrict any use of the information to criminally investigate or prosecute any alcohol or drug abuse patient.[facility] CenterIn the event this information is protected by the Federal Confidentiality of Alcohol and Drug Abuse Patient Records regulations: The Federal rules restrict any use of the information to criminally investigate or prosecute any alcohol or drug abuse patient.[facility] CenterIn the event this information is protected by the Federal Confidentiality of Alcohol and Drug Abuse Patient Records regulations: The Federal rules restrict any use of the information to criminally investigate or prosecute any alcohol or drug abuse patient.[facility] CenterIn the event this information is protected by the Federal Confidentiality of Alcohol and Drug Abuse Patient Records regulations: The Federal rules restrict any use of the information to criminally investigate or prosecute any alcohol or drug abuse patient.[facility] CenterIn the event this information is protected by the Federal Confidentiality of Alcohol and Drug Abuse Patient Records regulations: The Federal rules restrict any use of the information to criminally investigate or prosecute any alcohol or drug abuse patient.[facility] CenterIn the event this information is protected by the Federal Confidentiality of Alcohol and Drug Abuse Patient Records regulations: The Federal rules restrict any use of the information to criminally investigate or prosecute any alcohol or drug abuse patient.[facility] CenterIn the event this information is protected by the Federal Confidentiality of Alcohol and Drug Abuse Patient Records regulations: The Federal rules restrict any use of the information to criminally investigate or prosecute any alcohol or drug abuse patient.[facility] CenterIn the event this information is protected by the Federal Confidentiality of Alcohol and Drug Abuse Patient Records regulations: The Federal rules restrict any use of the information to criminally investigate or prosecute any alcohol or drug abuse patient.[facility] CenterIn the event this information is protected by the Federal Confidentiality of Alcohol and Drug Abuse Patient Records regulations: The Federal rules restrict any use of the information to criminally investigate or prosecute any alcohol or drug abuse patient.[facility] CenterIn the event this information is protected by the Federal Confidentiality of Alcohol and Drug Abuse Patient Records regulations: The Federal rules restrict any use of the information to criminally investigate or prosecute any alcohol or drug abuse patient.[facility] CenterIn the event this information is protected by the Federal Confidentiality of Alcohol and Drug Abuse Patient Records regulations: The Federal rules restrict any use of the information to criminally investigate or prosecute any alcohol or drug abuse patient.[facility] CenterIn the event this information is protected by the Federal Confidentiality of Alcohol and Drug Abuse Patient Records regulations: The Federal rules restrict any use of the information to criminally investigate or prosecute any alcohol or drug abuse patient.[facility] CenterIn the event this information is protected by the Federal Confidentiality of Alcohol and Drug Abuse Patient Records regulations: The Federal rules restrict any use of the information to criminally investigate or prosecute any alcohol or drug abuse patient.[facility] CenterIn the event this information is protected by the Federal Confidentiality of Alcohol and Drug Abuse Patient Records regulations: The Federal rules restrict any use of the information to criminally investigate or prosecute any alcohol or drug abuse patient.[facility] CenterIn the event this information is protected by the Federal Confidentiality of Alcohol and Drug Abuse Patient Records regulations: The Federal rules restrict any use of the information to criminally investigate or prosecute any alcohol or drug abuse patient.[facility] CenterIn the event this information is protected by the Federal Confidentiality of Alcohol and Drug Abuse Patient Records regulations: The Federal rules restrict any use of the information to criminally investigate or prosecute any alcohol or drug abuse patient.[facility] CenterIn the event this information is protected by the Federal Confidentiality of Alcohol and Drug Abuse Patient Records regulations: The Federal rules restrict any use of the information to criminally investigate or prosecute any alcohol or drug abuse patient.[facility] CenterIn the event this information is protected by the Federal Confidentiality of Alcohol and Drug Abuse Patient Records regulations: The Federal rules restrict any use of the information to criminally investigate or prosecute any alcohol or drug abuse patient.[facility] CenterIn the event this information is protected by the Federal Confidentiality of Alcohol and Drug Abuse Patient Records regulations: The Federal rules restrict any use of the information to criminally investigate or prosecute any alcohol or drug abuse patient.[facility] CenterIn the event this information is protected by the Federal Confidentiality of Alcohol and Drug Abuse Patient Records regulations: The Federal rules restrict any use of the information to criminally investigate or prosecute any alcohol or drug abuse patient.[facility] CenterIn the event this information is protected by the Federal Confidentiality of Alcohol and Drug Abuse Patient Records regulations: The Federal rules restrict any use of the information to criminally investigate or prosecute any alcohol or drug abuse patient.[facility] CenterIn the event this information is protected by the Federal Confidentiality of Alcohol and Drug Abuse Patient Records regulations: The Federal rules restrict any use of the information to criminally investigate or prosecute any alcohol or drug abuse patient.[facility] CenterIn the event this information is protected by the Federal Confidentiality of Alcohol and Drug Abuse Patient Records regulations: The Federal rules restrict any use of the information to criminally investigate or prosecute any alcohol or drug abuse patient.[facility] CenterIn the event this information is protected by the Federal Confidentiality of Alcohol and Drug Abuse Patient Records regulations: The Federal rules restrict any use of the information to criminally investigate or prosecute any alcohol or drug abuse patient.[facility] CenterIn the event this information is protected by the Federal Confidentiality of Alcohol and Drug Abuse Patient Records regulations: The Federal rules restrict any use of the information to criminally investigate or prosecute any alcohol or drug abuse patient.[facility] Reason for Visit (unrecogniz ed [...] Specialty Diagnoses / Procedures Referred By Rosalie gasac Referred To Contact Diagnoses PCOS (polycystic ovarian syndrome) Class 2 obesity due to excess calories without serious comorbidity with body mass index (BMI) of 39.0 to 39.9 in adult Hypertriglyceridemia Dyslipidemia (high LDL; low HDL) Elevated testosterone level Elevated fasting glucose Secondary amenorrhea Procedures ENDOCRINE MEDICAL WEIGHT MANAGEMENT OFFICE/OUTPATIENT [facility] HIGH MDM 60-74 MINUTES Mariana Hilario APRN.CNMoisés [address] [place] [address] Referral ID Status Reason Start Date Expiration Date V isits Requested Visits Authorized [id number] Closed PCP Requested Referral 02/03/2022 02/03/2023 1 [...] MINUTES Mariana Hilario, ZANE.CNM [address] [place] [address] Referral ID Status Reason Start Date Expiration Date V isits Requested Visits Authorized [id number] Closed PCP Requested Referral 02/03/2022 02/03/2023 1 1 Reason Comments Follow Up Reason Comments prior auth Patient called reque sting a prior authorization for semaglutide (OZEMPIC) 0.25 mg or 0.5 mg(2 mg/1.5 mL) pen. Patient stated she was told it can take up to 3 weeks. Pharmacist at [facility] told pt they sent over forms to be completed by provider because they cannot fill prescriptions without the authorization. Patient can be contacted at [phone]. Reason Comments Medication Preauthorization Ozempic Reason Comments [...] (MNT) MEDICAL NUTRITION ASSMT&IVNTJ INDIV EACH 15 MA MEDICAL NUTRITION ASSMT&IVNTJ INDIV EACH 15 [place] MEDICAL NUTRITION ASSMT&IVNTJ INDIV EACH 15 [place] MEDICAL NUTRITION ASSMT&IVNTJ INDIV EACH 15 MA Ed Vaz, CLINICAL REVIEWER.[employer] [address] [place] [address] Referral ID Status Reason Start Date Expiration Date V isits Requested Visits Authorized [id number] Closed PCP Requested Referral 05/09/2023 05/08/2024 1 1 Reason Comments Medication Authorization Phentermine Reason Comments Well Woman Reason Comments Opened In Error Reason Onset Date Comments Initial OB Visit Immunizations 12/07/2023 Flu vaccination Specialty Diagnoses / Procedures Referred By Contac t Referred To Contact [facility] Diagnoses with uncertain dates in first trimester Procedures OBSTETRIC ULTRASOUND WHI US PREG UTERUS AFTER 1ST TRIMEST GESTATION Elkin Martinez, CLINICAL REVIEWER.DESTATICIZER FEEDER [address] [place] [address] [address] Referral ID Status Reason Start Date Expiration Date V isits Requested Visits Authorized [id number] Closed Auto-Generate d Referral 12/07/2023 02/05/2024 1 1 Reason Comments PRAF Reason Comments Results Reason Comments Thyroid Problem Reason Comments Orders Reason Comments Vaginal Bleeding 6 weeks , br own spotting this am x1 on toilet paper only. + abdominal/back pain, LMP 10/16/23 G3 P 1 AB 1. [facility] [place] Reason Onset Date Comments Care 12/28/2023 Reason Onset Date Comments Care 01/31/2024 Reason Comments US Specialty Diagnoses / Procedures Referred By Contac t Referred To Contact [facility] Diagnoses 7 weeks gestation of Encounter for supervision of high risk in first trimester, antepartum Thyroid disease Procedures NUCHAL TRANSLUCENCY WHI US NUCHAL TRANSLUCENCY 1ST GESTATION Susana Castillo MD [address] [place] [address] [facility] [address] [place] [id number] Referral ID Status Reason Start Date Expiration Date V isits Requested Visits Authorized [id number] Closed Auto-Generate d Referral 12/28/2023 12/27/2024 1 1 Reason Comments Results Reason Comments Headache Body aches, ear pain , nausea, sore throat, cough, chest feels on fire x 4 days Reason Comments Question (OB Question) Reason Onset Date Comments Care 02/28/2024 Specialty Diagnoses / Procedures Referred By Contac t Referred To Contact [facility] Diagnoses Two vessel cord Obesity affecting in first trimester, unspecified obesity type Procedures OBSTETRIC ULTRASOUND WHI US PREG UTERUS AFTER 1ST TRIMEST GESTATION Elsa Chaudhary APRN.CNM [address] [place] [address] [address] Referral ID Status Reason Start Date Expiration Date V isits Requested Visits Authorized [id number] Closed Auto-Generate d Referral 01/31/2024 01/30/2025 1 1 Reason Onset Date Comments Care 03/28/2024 Specialty Diagnoses / Procedures Referred By Contac t Referred To Contact [facility] Diagnoses 7 weeks gestation of Encounter for supervision of high risk in first trimester, antepartum Thyroid disease Procedures OBSTETRIC ULTRASOUND WHI US PREG UTERUS AFTER 1ST TRIMEST GESTATION Susana Castillo MD [address] [place] [address] Phone: tel: fax: [address] [phone] Referral ID Status Reason Start Date Expiration Date V isits Requested Visits Authorized [id number] Closed Auto-Generate d Referral 12/28/2023 12/27/2024 1 1 Reason Comments Lab & Test Results Reason Comments Consult Elevated TSH 20 Weeks Specialty Diagnoses / Procedures Referred By Contac t Referred To Contact Endocrinology Diagnoses Elevated TSH 7 weeks gestation of Procedures CONSULT TO ENDOCRINOLOGY OFFICE/OUTPATIENT NEW HIGH MDM 60 MINUTES Elkin Martinez, ZANE.DESTATICIZER FEEDER [address] 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 - Other PRAF Reason Onset Date Comments Care 04/22/2024 Specialty Diagnoses / Procedures Referred By Contac t Referred To Contact [facility] Diagnoses Single umbilical artery affecting management of mother, antepartum, single gestation (HCC) Supervision of high risk in second trimester ([facility]) Procedures OBSTETRIC ULTRASOUND WHI US PREG UTERUS AFTER 1ST TRIMEST GESTATION Susana Castillo MD [address] [place] [address] Phone: tel: fax: [address] [phone] Referral ID Status Reason Start Date Expiration Date V isits Requested Visits Authorized [id number] Closed Auto-Generate d Referral 03/31/2024 03/31/2025 1 1 Reason Onset Date Comments Care 05/21/2024 Reason Comments Cough right ear pain, sore throat x 5 days, chest congestion x this am Reason Onset Date Comments Care 06/04/2024 Specialty Diagnoses / Procedures Referred By Lauraac t Referred To Contact [facility] Diagnoses Single umbilical artery affecting management of mother, antepartum, single gestation (HCC) 28 weeks gestation of ([facility]) High-risk in third trimester ([facility]) Procedures OBSTETRIC ULTRASOUND WHI US PREG UTERUS AFTER 1ST TRIMEST GESTATION Alfred Childress MD [address] [place] [address] Phone: tel: fax: [address] [phone] Referral ID Status Reason Start Date Expiration Date V isits Requested Visits Authorized [id number] Closed Auto-Generate d Referral 05/21/2024 05/21/2025 3 1 Reason Onset Date Comments Care 07/02/2024 Reason Onset Date Comments Care 07/16/2024 Reason Onset Date Comments feet swollen 07/19/2024 Reason Comments Patient Update Reason Onset Date Comments Care 07/23/2024 Care Teams (unrecognized sec tion and content) Silk Screen Printer Relationship Specialty [place] [address] [place] [address] PCP - General Family Practice 08/03/20 [place] [address] [place] [address] PCP Resident Family Practice 08/03/20 Silk Screen Printer Relationship Specialty Start Date End Date Matthew Vera MD [address] [place] [address]85 PCP - General Family Practice 08/03/20 Mauricio Aquino MD [address] [place] [address] 84166 PCP Resident Family Practice 08/03/20 Silk Screen Printer Relationship Specialty Start Date End Date Jose Haynes MD [address] [place] [address] PCP - General Family Medicine 05/08/18 Judd Noble MD [address] [place] [address] [place] [address] Physician Obstetrics/Gynecology 11/11/19 Silk Screen Printer Relationship Specialty Start Date End Date Matthew Vera MD [address] [place] [address] 18455 PCP - General Family Practice 08/03/20 Mauricio Aquino MD [address] [place] [address] 85682 PCP Resident Family Practice 08/03/20 Silk Screen Printer Relationship Specialty Start Date End Date Matthew Vera MD [address] [place] [address] 33076 PCP - General Family Medicine 08/03/20 Mauricio Aquino MD [address] [place] [address] 27776 PCP Resident Family Medicine 08/03/20 Silk Screen Printer Relationship Specialty Start Date End Date Matthew Vera MD [address] [place] [address] 97135 PCP - General Family Medicine 08/03/20 Mauricio Aquino MD [address] [place] [address] 54738 PCP Resident Family Medicine 08/03/20 Silk Screen Printer Relationship Specialty Start Date End Date Matthew Vera MD [address] [place] [address] 77177 PCP - General Family Medicine 08/03/20 Mauricio Aquino MD [address] [place] [address] 36893 PCP Resident Family Medicine 08/03/20 Silk Screen Printer Relationship Specialty Start Date End Date Jose Haynes MD [address] [place] [address] PCP - General Family Medicine 05/08/18 Judd Noble MD [address] [place] [address] [place] [address] Physician Obstetrics/Gynecology 11/11/19 Silk Screen Printer Relationship Specialty Start Date End Date Matthew Vera MD [address] [place] [address] 91169 PCP - General Family Medicine 08/03/20 Mauricio Aquino MD [address] [place] [address] 33307 PCP Resident Family Medicine 08/03/20 Silk Screen Printer Relationship Specialty Start Date End Date Matthew Vera MD [address] [place] [address] 17334 PCP - General Family Medicine 08/03/20 Mauricio Aquino MD [address] [place] [address] 57390 PCP Resident Family Medicine 08/03/20 Silk Screen Printer Relationship Specialty Start Date End Date Matthew Vera MD [address] [place] [address] 06823 PCP - General Family Medicine 08/03/20 Mauricio Aquino MD [address] [place] [address]8 PCP Resident Family Medicine 08/03/20 Silk Screen Printer Relationship Specialty Start Date End Date Matthew Vera MD [address] [place] [address] 23462 PCP - General Family Medicine 08/03/20 Mauricio Aquino MD [address] [place] [address] 39289 PCP Resident Family Medicine 08/03/20 Silk Screen Printer Relationship Specialty Start Date End Date Matthew Vera MD [address] [place] [address] 37354 PCP - General Family Medicine 08/03/20 Mauricio Aquino MD [address] [place] [address] 50569 PCP Resident Family Medicine 08/03/20 Silk Screen Printer Relationship Specialty Start Date End Date Matthew Vera MD [address] [place] [address] 13423 PCP - General Family Medicine 08/03/20 Mauricio Aquino MD [address] [place] [address] 94005 PCP Resident Family Medicine 08/03/20 Silk Screen Printer Relationship Specialty Start Date End Date Matthew Vera MD [address] [place] [address] 66988 PCP - General Family Medicine 08/03/20 Mauricio Aquino MD [address] [place] [address] 61951 PCP Resident Family Medicine 08/03/20 Silk Screen Printer Relationship Specialty Start Date End Date Karon Odonnell MD [address] [place] [address] 05304 PCP - General Family Medicine 08/05/22 Venancio Beckford MD [address] [place] [address]70 PCP Resident Family Medicine 08/05/22 Silk Screen Printer Relationship Specialty Start Date End Date Matthew Vera MD [address] [place] [address] 14340 PCP - General Family Medicine 08/03/20 08/04/22 Karon Odonnell MD [address] [place] [address] 72898 PCP - General Family Medicine 08/05/22 Dora Santacruz (Rn)MD [address] [place] [address] 30629 PCP Resident Family Medicine 08/03/20 08/04/22 Venancio Beckford MD [address] [place] [address] 82848 PCP Resident Family Medicine 08/05/22 Silk Screen Printer Relationship Specialty Start Date End Date Karon Odonnell MD [address] [place] [address] 12069 PCP - General Family Medicine 08/05/22 Venancio Beckford MD [address] [place] [address] 82419 PCP Resident Family Medicine 08/05/22 Silk Screen Printer Relationship Specialty Start Date End Date Karon Odonnell MD [address] [place] [address] 30621 PCP - General Family Medicine 08/05/22 Venancio Beckford MD [address] [place] [address] 77832 PCP Resident Family Medicine 08/05/22 Silk Screen Printer Relationship Specialty Start Date End Date Karon Odonnell MD [address] [place] [address] 96511 PCP - General Family Medicine 08/05/22 Venancio Beckford MD [address] [place] [address] 06476 PCP Resident Family Medicine 08/05/22 Silk Screen Printer Relationship Specialty Start Date End Date Karon Odonnell MD [address] [place] [address] 27138 PCP - General Family Medicine 08/05/22 Venancio Beckford MD [address] [place] [address] 69480 PCP Resident Family Medicine 08/05/22 Silk Screen Printer Relationship Specialty Start Date End Date Karon Odonnell MD [address] [place] [address] 18646 PCP - General Family Medicine 08/05/22 Venancio Beckford MD [address] [place] [address] 95649 PCP Resident Family Medicine 08/05/22 Silk Screen Printer Relationship Specialty Start Date End Date Karon Odonnell MD [address] [place] [address] 52126 PCP - General Family Medicine 08/05/22 Venancio Beckford MD [address] [place] [address] 28624 PCP Resident Family Medicine 08/05/22 Silk Screen Printer Relationship Specialty Start Date End Date Karon Odonnell MD [address] [place] [address] PCP - General Family Medicine 08/05/22 Venancio Beckford MD [address] [place] [address] PCP Resident Family Medicine 08/05/22 Silk Screen Printer Relationship Specialty Start Date End Date Karon Odonnell MD [address] [place] [address] PCP - General Family Medicine 08/05/22 Venancio Beckford MD [address] [place] [address] 31773 PCP Resident Family Medicine 08/05/22 Team Status: Active Member Role Status Dates No Primary Care Physician Primary Care Provider Active Team Status: Inactive Member Role Status Dates No Primary Care Physician Primary Care Provider Active Dr. Yo Baker , DO Emergency Provider Active Silk Screen Printer Relationship Specialty Start Date End Date Karon Odonnell MD [address] [place] [address] PCP - General Family Medicine 08/05/22 Venancio Beckford MD [address] [place] [address] 58835 PCP Resident Family Medicine 08/05/22 Silk Screen Printer Relationship Specialty Start Date End Date Karon Odonnell MD [address] [place] [address] PCP - General Family Medicine 08/05/22 Venancio Beckford MD [address] [place] [address] 77937 PCP Resident Family Medicine 08/05/22 Silk Screen Printer Relationship Specialty Start Date End Date Matthew Vera MD [address] [place] [address] PCP - General Family Medicine 08/03/20 08/04/22 Dora Santacruz Rn, MD [address] [place] [address] PCP Resident Family Medicine 08/03/20 08/04/22 Silk Screen Printer Relationship Specialty Start Date End Date Matthew Vera MD [address] [place] [address] 32361 PCP - General Family Medicine 08/03/20 08/04/22 Dora Santacruz Rn, MD [address] [place] [address] PCP Resident Family Medicine 08/03/20 08/04/22 Silk Screen Printer Relationship Specialty Start Date End Date Matthew Vera MD [address] [place] [address] 40924 PCP - General Family Medicine 08/03/20 08/04/22 Dora Santacruz Rn, MD [address] [place] [address] 82714 PCP Resident Family Medicine 08/03/20 08/04/22 Silk Screen Printer Relationship Specialty Start Date End Date Karon Odonnell MD [address] [place] [address] 17650 PCP - General Family Medicine 08/05/22 Venancio Beckford MD [address] [place] [address] 88482 PCP Resident Family Medicine 08/05/22 Silk Screen Printer Relationship Specialty Start Date End Date Karon Odonnell MD [address] [place] [address] 62544 PCP - General Family Medicine 08/05/22 Venancio Beckford MD [address] [place] [address] PCP Resident Family Medicine 08/05/22 Silk Screen Printer Relationship Specialty Start Date End Date Karon Odonnell MD [address] [place] [address] PCP - General Family Medicine 08/05/22 Venancio Beckford MD [address] [place] [address] 74283 PCP Resident Family Medicine 08/05/22 Silk Screen Printer Relationship Specialty Start Date End Date Karon Odonnell MD [address] [place] [address] 38698 PCP - General Family Medicine 08/05/22 Venancio Beckford MD [address] [place] [address] PCP Resident Family Medicine 08/05/22 Silk Screen Printer Relationship Specialty Start Date End Date Karon Odonnell MD [address] [place] [address] 27616 PCP - General Family Medicine 08/05/22 Venancio Beckford MD [address] [place] [address] PCP Resident Family Medicine 08/05/22 Silk Screen Printer Relationship Specialty Start Date End Date Karon Odonnell MD [address] [place] [address] PCP - General Family Medicine 08/05/22 Venancio Beckford MD [address] [place] [address] PCP Resident Family Medicine 08/05/22 Silk Screen Printer Relationship Specialty Start Date End Date Karon Odonnell MD [address] [place] [address] PCP - General Family Medicine 08/05/22 Venancio Beckford MD [address] [place] [address] 07517 PCP Resident Family Medicine 08/05/22 Silk Screen Printer Relationship Specialty Start Date End Date Karon Odonnell MD [address] [place] [address] 80362 PCP - General Family Medicine 08/05/22 Venancio Beckford MD [address] [place] [address] 85497 PCP Resident Family Medicine 08/05/22 Silk Screen Printer Relationship Specialty Start Date End Date Generic Provider, No [place] [address] PCP - General Inspector Machine [employer] Glass 12/24/23 Silk Screen Printer Relationship Specialty Start Date End Date Karon Odonnell MD [address] [place] [address] 75587 PCP - General Family Medicine 08/05/22 Venancio Beckford MD [address] [place] [address] 64364 PCP Resident Family Medicine 08/05/22 Silk Screen Printer Relationship Specialty Start Date End Date Karon Odonnell MD [address] [place], [place] [phone] PCP - General Family Medicine 08/05/22 Venancio Beckford MD [address] [place] [address] 36923 PCP Resident Family Medicine 08/05/22 Silk Screen Printer Relationship Specialty Start Date End Date Karon Odonnell MD [address] [place] [address] 18544 PCP - General Family Medicine 08/05/22 Venancio Beckford MD [address] [place] [address] 54632 PCP Resident Family Medicine 08/05/22 Silk Screen Printer Relationship Specialty Start Date End Date Karon Odonnell MD [address] [place] [address] 17767 PCP - General Family Medicine 08/05/22 Venancio Beckford MD [address] [place] [address] 01981 PCP Resident Family Medicine 08/05/22 Silk Screen Printer Relationship Specialty Start Date End Date Karon Odonnell MD [address] [place] [address] 02345 PCP - General Family Medicine 08/05/22 Venancio Beckford MD [address] [place] [address] 56782 PCP Resident Family Medicine 08/05/22 Silk Screen Printer Relationship Specialty Start Date End Date Karon Odonnell MD [address] [place] [address] 37437 PCP - General Family Medicine 08/05/22 Venancio Beckford MD [address] [place] [address] 06356 PCP Resident Family Medicine 08/05/22 Silk Screen Printer Relationship Specialty Start Date End Date Karon Odonnell MD [address] [place] [address] 23084 PCP - General Family Medicine 08/05/22 Venancio Beckford MD [address] [place] [address] 30854 PCP Resident Family Medicine 08/05/22 Silk Screen Printer Relationship Specialty Start Date End Date Karon Odonnell MD [address] [place] [address] 47704 PCP - General Family Medicine 08/05/22 Venancio Beckford MD [address] [place] [address] 28727 PCP Resident Family Medicine 08/05/22 Silk Screen Printer Relationship Specialty Start Date End Date Karon Odonnell MD [address] [place] [address] 18659 PCP - General Family Medicine 08/05/22 Venancio Beckford MD [address] [place] [address] 44251 PCP Resident Family Medicine 08/05/22 Silk Screen Printer Relationship Specialty Start Date End Date Karon Odonnell MD [address] [place] [address] 38757 PCP - General Family Medicine 08/05/22 Venancio Beckford MD [address] [place] [address] 48042 PCP Resident Family Medicine 08/05/22 Silk Screen Printer Relationship Specialty Start Date End Date Karon Odonnell MD [address] [place] [address] 30497 PCP - General Family Medicine 08/05/22 Venancio Beckford MD [address] [place] [address] 75976 PCP Resident Family Medicine 08/05/22 Silk Screen Printer Relationship Specialty Start Date End Date Karon Odonnell MD [address] [place] [address] 52154 PCP - General Family Medicine 08/05/22 Venancio Beckford MD [address] [place] [address] 06087 PCP Resident Family Medicine 08/05/22 Silk Screen Printer Relationship Specialty Start Date End Date Karon Odonnell MD [address] [place] [address] 35325 PCP - General Family Medicine 08/05/22 Venancio Beckford MD [address] [place] [address] 60892 PCP Resident Family Medicine 08/05/22 Silk Screen Printer Relationship Specialty Start Date End Date Karon Odonnell MD [address] [place] [address] 24199 PCP - General Family Medicine 08/05/22 Venancio Beckford MD [address] [place] [address] 03984 PCP Resident Family Medicine 08/05/22 Silk Screen Printer Relationship Specialty Start Date End Date Karon Odonnell MD [address] [place] [address] 30934 PCP - General Family Medicine 08/05/22 Venancio Beckford MD [address] [place] [address] 05891 PCP Resident Family Medicine 08/05/22 Silk Screen Printer Relationship Specialty Start Date End Date Karon Odonnell MD [address] [place] [address] 25877 PCP - General Family Medicine 08/05/22 Venancio Beckford MD [address] [place] [address] 49814 PCP Resident Family Medicine 08/05/22 Silk Screen Printer Relationship Specialty Start Date End Date Karon Odonnell MD [address] [place] [address] 07499 PCP - General Family Medicine 08/05/22 Venancio Beckford MD [address] [place] [address] 63441 PCP Resident Family Medicine 08/05/22 Silk Screen Printer Relationship Specialty Start Date End Date Karon Odonnell MD [address] [place] [address] PCP - General Family Medicine 08/05/22 Venancio Beckford MD [address] [place] [address] 63745 PCP Resident Family Medicine 08/05/22 Silk Screen Printer Relationship Specialty Start Date End Date Karon Odonnell MD [address] [place] [address] 65896 PCP - General Family Medicine 08/05/22 Venancio Beckford MD [address] [place] [address] 85669 PCP Resident Family Medicine 08/05/22 Silk Screen Printer Relationship Specialty Start Date End Date Karon Odonnell MD [address] [place] [address] 92744 PCP - General Family Medicine 08/05/22 Venancio Beckford MD [address] [place] [address] 57514 PCP Resident Family Medicine 08/05/22 Silk Screen Printer Relationship Specialty Start Date End Date Karon Odonnell MD [address] [place] [address] 89165 PCP - General Family Medicine 08/05/22 Venancio Beckford MD [address] [place] [address] PCP Resident Family Medicine 08/05/22 Silk Screen Printer Relationship Specialty Start Date End Date Karon Odonnell MD [address] [place] [address] PCP - General Family Medicine 08/05/22 Venancio Beckford MD [address] [place] [address] PCP Resident Family Medicine 08/05/22 Silk Screen Printer Relationship Specialty Start Date End Date Karon Odonnell MD [address] [place] [address] PCP - General Family Medicine 08/05/22 Venancio Beckford MD [address] [place] [address] 87914 PCP Resident Family Medicine 08/05/22 Silk Screen Printer Relationship Specialty Start Date End Date Karon Odonnell MD [address] [place] [address] PCP - General Family Medicine 08/05/22 Venancio Beckford MD [address] [place] [address] PCP Resident Family Medicine 08/05/22 Silk Screen Printer Relationship Specialty Start Date [place]aron O[place] [id number] [place] [address]903 PCP - General Family Medicine 08/05/22 Venancio Beckford MD [address] [place] [address] 35439 PCP Resident Family Medicine 08/05/22 Silk Screen Printer Relationship Specialty Start Date End Date Karon Odonnell MD [address] [place] [address] 39924 PCP - General Family Medicine 08/05/22 Venancio Beckford MD [address] [place] [address] 97519 PCP Resident Family Medicine 08/05/22 Team Status: [...] BE BASED ON THE PRIMARY CLINICAL RECORDS. [facility]. provides no warranty or guarantee of the accuracy or completeness of information in this document.
== END 2024-07-30 14:36 | disposition home or self-care (01) ==
LOC: WPOUT 13:54 → WP 14:30
PROVIDERS: Referring Provider Obstetrics & Gynecology; Visit Provider Obstetrics & Gynecology
DX: O47.1 False labor at or after 37 completed weeks of gestation (principal); Z3A.38 38 weeks gestation of pregnancy
CPT/HCPCS: 59025; 59050; 84112; 99221; G0378

== ENCOUNTER 2024-08-05 09:40 | Inpatient (IN) | payer MEDICAID, SELFPAY ==
[2024-08-05] VITALS (17 sets, daily range): BP systolic 90–139; BP diastolic 30–91; PULSE 71–93; RESP 16–18; TEMP 36.4–36.7; O2SAT 16–100; BMI 41.1; BMI 41.8
[2024-08-05] MEDS: Lactated Ringers 1,000 ML 999 ML IV (10:15)
[2024-08-05 10:23] LABS: Hematocrit 30.9 % (37-47); Hemoglobin 10.2 g/dL (12.0-15.0); Immature Granulocytes Count 0.050 X10^3/uL (0.0-0.0); Mean Corp Hgb Conc 33.0 g/dL (32-36); Mean Corpuscular Volume 85.8 fL (81-99); Mean Platelet Vol. 12.6 fl (6.2-12.0); NRBC Flagged by Analyzer 0 % (0-5); Platelet Count 132 K/mm3 (150-450); RBC Distribution Width CV 13.8 % (11.6-14.6); RBC Distribution Width SD 42.9 fl (35.1-43.9); Red Blood Count 3.60 M/mm3 (4.2-5.4); White Blood Count 6.4 K/mm3 (4.4-11.0)
[2024-08-05 11:05] LABS: Syphilis Antibodies Nonreactive (Nonreactive)
[2024-08-05] MEDS: Lactated Ringers 1,000 ML 150 ML IV (11:05)
[2024-08-05] MEDS: Cefazolin 2 GM in 0.9% Normal Saline (100mL Bag) 100 ML IV (12:09)
--- NOTE | 2024-08-05 12:10 | PCM.HP.OB ---
HPI - General General Date of Admission: 08/05/24 HPI Narrative RICHARD GONZALEZ, is a 29 F who presents for section. Maternal Data Information MARYJANE Calculator Estimated Delivery Date Method Current WG Current Estimate 08/11/24 Manual 39w 1d PFSH [facility] Medical History (Updated 08/05/24 @ 12:[address] Eugenia Craft MD) Contusion of rib on left side Elevated TSH PCOS (polycystic ovarian syndrome) Home Medications ?Medication ?Instructions ?Recorded ?Last Taken ?Type levothyroxine 125 mcg tablet 125 mcg PO DAILY hypothyroid 08/05/24 08/04/24 History vit no.95-ferrous 1 tab PO DAILY 08/05/24 08/04/24 History fumarate 28 mg-folic acid 800 mcg tablet () Allergy/AdvReac Type Severity Reaction Status Date / Time sumatriptan (From Imitrex) AdvReac PT UNSURE Verified 08/05/24 10:10 OF REACTION Social History Smoking Status: Never smoker substance use type: does not use History 3 Elective abortions Hx Para 1 Spontaneous abortions Hx # Term Pregnancies Ectopic pregnancies Hx # Pregnancies Multiple births # of living children Vital Signs Vital Signs Vital Signs: 08/05/24 10:24 Temperature 98.1 F Temperature Source Oral Pulse Rate 92 Respiratory Rate 16 Blood Pressure 129/87 H Blood Pressure Mean 101 Blood Pressure Source Monitor Blood Pressure Position Semi-Fowlers Blood Pressure Location Left Arm Pulse Ox 100 Oxygen Delivery Method Room Air Weight Weight: 251 lb Body Mass Index (BMI) 41.8 Labs Labs Labs: Blood Type A POSITIVE Antibody Screen NEGATIVE Hct 30.9 % (37-47) L Hgb 10.2 g/dL (12.0-15.0) L Syphilis Total Ab Nonreactive (Nonreactive) Assessment & Plan (1) Request for sterilization: COMMENT: (2) Large for gestational age fetus: (3) Single umbilical artery: PLAN: Admit to L&D MOD - patient counseled on R/B/A and wishes to proceed with an elective primary . Fetus was breech until today when TAUS shows vertex. Fetus is LGA (99%) and patient declines trial of labor. Sterilization request - plan for bilateral salpingectomy. Discussed risks of regret and failure. Routine care.
--- NOTE | 2024-08-05 13:30 | OP.PCM_ITS ---
Maternal Data Information MARYJANE Calculator Estimated Delivery Date Method Current WG Current Estimate 08/11/24 Manual 39w 1d Operative Report (OB) Details Procedure Type: low transverse (and bilateral salpingectomy) Date of Procedure: 08/05/24 Procedure Start Time: 12:34 Procedure Stop Time: 13:19 Pre-Operative Diagnosis: Desires elective sterilization and Other Other Pre- Operative diagnosis: (1) Elective primary section (2) Suspected LGA Post-Operative Diagnosis: Same as Pre-operative diagnosis Classification: Scheduled Type of Anesthesia: Spinal Antibiotic Given: Ancef 2 grams IV x1 Drain: Martinez to straight drain Estimated Blood Loss: 900ml Fluids Replaced: 1000ml Findings Description of surgery: The patient was taken to the operating room where spinal anesthesia was placed & found to be adequate. She was prepped and draped in the dorsal supine position with a leftward tilt. A Pfannenstiel skin incision was made approximately 2 cm above the symphysis pubis and carried through to the underlying fascia with the scalpel. The fascia was incised incised in the midline and extended laterally with the Guerra scissors. The rectus muscles were in the midline and the peritoneum was entered carefully and bluntly. The peritoneal incision was stretched and the bladder blade was inserted. Vesicouterine peritoneum was tented up, incised & then bladder flap created gently. The uterine incision was made in a low transverse fashion with the scalpel and extended superiorly and inferiorly with blunt dissection. The 's head was brought to the incision in the flexed position and delivered without difficulty. The head was gently guided to allow delivery of the anterior and posterior shoulders. The body then delivered with fundal pressure in the standard fashion. The 3VC cord was clamped and cut in slightly delayed fashion. The infant was handed off to the waiting pediatric immunologist. The placenta was delivered with fundal massage and gentle traction in the standard fashion. The uterus was exteriorized and cleared of clots and debris. The uterine incision was closed with #1 Vicryl suture in a running locked fashion. Monocryl suture was used in an imbricating fashion. 1 additional figure of 8 suture using 3-0 vicryl helped obtained excellent hemostasis. The incision was examined and was found to be hemostatic. Attention was turned to the fallopian tubes. Starting on the right the fallopian tube was grasped, cauterized and cut. Excellent hemostasis of the tubal site was confirmed. Then the left fallopian tube was grasped, cauterized and cut. Excellent hemostasis of the tubal site was confirmed. The uterus was returned to the abdominal cavity. Hemostasis of the tubal excision sites was again confirmed. After irrigating Sanju was placed over the uterine incision as some areas were denuded (but hemostatic). The rectus muscle was examined and any bleeding was Bovie cauterized. The fascia was closed with PDS suture in a running standard fashion. The subcutaneous tissue was examining and any bleeding was Bovie cauterized. The subcutaneous tissue was reapproximated with interrupted sutures. The skin was closed in a subcuticular fashion by the CAM SPECIALIST while I was present in the OR. The remainder of the procedure was performed by me with assistance. Surgical findings: normal maternal uterus and adnexa Presentation: Vertex Amniotic Membrane Rupture Type: Artificial Amniotic Fluid Description: Clear Placental Delivery Description: Expressed Placenta Disposition: [facility] Specimen collected: No Cord Vessel Description: 3 Vessels Cord Entanglement: None A gender: Male (1 minute): 9 (5 minute): 9 Delayed Cord Clamping: Yes Turf Manager tube making machine operator: Yes Extractor Puller: Jenise Nieves Tasks completed by administrative assistant data entry: Opening, Removing tissue and Retracting Additional malt specifications control assistant?: No Complications Complications: No
[2024-08-05] MEDS: Oxytocin 15 Units/NS 250ml 15 UNITS/250 ML IV.SOLN 83 UNITS IV (13:40)
--- NOTE | 2024-08-05 14:14 | FALS_PTH ---
PATIENT: RICHARD GONZALEZ LOC: [facility] U#:[id number] AGE/SX: 29/F ROOM: WP007 RE08/05/[address]: Dr. Eugenia Craft MD : 1995 BED: 1 DIS: 08/07/2024 SPEC #: [id number] RECD: 08/05/24 14:46 STATUS: MESHA REQ #: [id number] JONATAN: 08/05/24 14:[address]: Eugenia Craft DEPT: SURGICAL PATHOLOGY RECD BY: Alan Martínez ENTERED: 08/05/24 16:06 SP TYPE: FALL TUBES OTHR DR: Tania Primary Care Phys Tissues: A - Fallopian tube Procedures: Surgery Specimen Level II HEADER OPERATION: Tubal ligation PRE-OP DIAGNOSIS: Sterilization TISSUE SUBMITTED: A- Fallopian tube MICROSCOPIC DIAGNOSIS A. Fallopian tube, right, salpingectomy: * Benign fallopian tube with complete cross section obtained MICROSCOPIC DESCRIPTION Slides are reviewed. GROSS DESCRIPTION A. Received in formalin labeled with the patient's name and date of . Designated as R fallopian tube is a red-purple fimbriated fallopian tube, 9.3 cm in length x 0.9 cm in diameter. There are multiple paratubal cysts, <0.1 cm to 0.2 cm. Provider Relations Consultant sections are submitted in 1 cassette. ERIC/ 08/05/2024 CPT:89368
[2024-08-05 14:45] LABS: Pathology Specimen OB SEE PATHOLOGY REPORT
[2024-08-05] MEDS: Ketorolac 30 MG/ML Syringe IV ×2 (15:30→21:09)
[2024-08-05] MEDS: Lactated Ringers 1,000 ML 100 ML IV (16:52)
--- NOTE | 2024-08-05 20:14 | NURSING ---
1943- this RN attempting to scan MMR vaccine into APR and unable to do so d/t pop up saying that it is a duplicate administration. This RN called pharmacy for help. Pharmacy told this RN there was an MMR order earlier that was discontinued and was charted as Not Given. Pharmacy stated that it would not let them do anything to allow RN to chart med on their end. Pharmacy stated they will reschedule med to 1000 08/06/24 and see if it makes a difference. Pharmacy stated to waste med since it was already drawn up. This RN verbalized understanding.
[2024-08-06] VITALS (11 sets, daily range): BP systolic 114–128; BP diastolic 61–79; PULSE 93–105; RESP 16–18; TEMP 36.5–36.9; O2SAT 97–99
[2024-08-06] MEDS: Ketorolac 30 MG/ML Syringe IV ×2 (02:48→08:25)
[2024-08-06 07:32] LABS: Hematocrit 25.2 % (37-47); Hemoglobin 8.5 g/dL (12.0-15.0); Mean Corp Hgb Conc 33.7 g/dL (32-36); Mean Corpuscular Volume 86.3 fL (81-99); Mean Platelet Vol. 12.7 fl (6.2-12.0); Platelet Count 120 K/mm3 (150-450); RBC Distribution Width CV 13.8 % (11.6-14.6); RBC Distribution Width SD 42.8 fl (35.1-43.9); Red Blood Count 2.92 M/mm3 (4.2-5.4); White Blood Count 10.1 K/mm3 (4.4-11.0)
[2024-08-06] MEDS: 0.9% Saline Lock 10 ML Syringe IV (08:26)
--- NOTE | 2024-08-06 08:27 | PCM.PN.CNM ---
Subjective Subjective Patient seen at bedside. Denies headache, vision changes, SOB or CP. Ambulating and voiding without difficulty. Passing flatus. Lochia decreased. Objective Data Objective Data Vital Signs: Vital Signs Temp Pulse Resp BP Pulse Ox O2 Del Method 98.1 F 95 16 114/69 97 Room Air 08/06/24 07:47 08/06/24 07:47 08/06/24 07:47 08/06/24 07:47 08/06/24 07:47 08/06/24 07:47 Oxygen Delivery Method Room Air Weight: 251 lb Body Mass Index (BMI) 41.8 Intake & Output: Intake and Output for Last 24 Hours 08/04/24 08/05/24 08/06/24 23:59 23:59 23:59 Intake Total 1407.50 / 1407.50 1000 / 1000 Output Total 1999 / 1999 500 / 500 Balance -592.50 / -592.50 500 / 500 Lab / Micro Data Attestation: I reviewed the patient's lab results. 08/06/24 06:12 Labs: Laboratory Results - last 24 hr 08/05/24 10:00: WBC 6.4, RBC 3.60 L, Hgb 10.2 L, Hct 30.9 L, MCV 85.8, MCH 28.3, MCHC 33.0, RDW Std Deviation 42.9, RDW Coeff of Vel 13.8, Plt Count 132 L, MPV 12.6 H, Immature Gran % (Auto) 0.800, Neut % (Auto) 68.1, Lymph % (Auto) 22.3, Corson % (Auto) 7.1, Eos % (Auto) 1.4, Baso % (Auto) 0.3, Absolute Neuts (auto) 4.4, Absolute Lymphs (auto) 1.42, Nucleated RBC % 0, Syphilis Total Ab Nonreactive, Blood Type A POSITIVE, Antibody Screen NEGATIVE 08/06/24 06:12: WBC 10.1, RBC 2.92 L, Hgb 8.5 L, Hct 25.2 L, MCV 86.3, MCH 29.1, MCHC 33.7, RDW Std Deviation 42.8, RDW Coeff of Vel 13.8, Plt Count 120 L, MPV 12.7 H ROS Eyes Eyes: Denies blurry vision, spots in vision or tunnel vision ENT HEENT: Denies dizziness or headache(s) Cardiovascular Cardiovascular: Reports systems reviewed and no addt'l complaints, except as documented, dizziness and dyspnea Respiratory/Chest Respiratory/Chest: Reports systems reviewed and no addt'l complaints, except as documented Gastrointestinal Gastrointestinal: Reports systems reviewed and no addt'l complaints, except as documented Genitourinary Genitourinary: Reports systems reviewed and no addt'l complaints, except as documented Neurologic Neurologic: Denies abnormal speech, dizziness, headache(s), syncope or vertigo Psychiatric Psychiatric: Reports systems reviewed and no addt'l complaints, except as documented Physical Exam Const alert and no apparent distress General Appearance: cooperative Orientation / Consciousness: awake, oriented to person and oriented to place Exam Limitations: no limitations HEENT normocephalic Eyes General Eye: normal appearance of both eyes Neck full ROM Chest Chest: symmetrical chest wall rise Resp normal respiratory effort, normal air movement and clear to auscultation bilaterally Auscultation: clear to auscultation bilaterally Cardio regular rate and regular rhythm GI normal to inspection, nondistended, normoactive bowel sounds Uterus Palpation: uterus fundus firm Extremity full ROM and no calf tenderness Skin no rashes or lesions noted Neuro oriented x3 Psych mental status grossly normal and activity/motor behavior normal Assessment & Plan (1) Status post delivery: (2) Anemia due to blood loss, acute: PLAN: Plan POD 1 C/S Formula feeding Pain control HGB 8.5 down from 10.2- Start oral iron supplemention Anticipate discharge home tomorrow
[2024-08-06] MEDS: Senna/Docusate Sodium 1 Tablet PO (10:22)
[2024-08-06] MEDS: MEASLES,MUMPS,RUBELLA VACC/PF 0.5 ML SC (10:23)
[2024-08-07 02:55] VITALS: BP 123/74; PULSE 96; RESP 20; TEMP 36.6; O2SAT 98
--- NOTE | 2024-08-07 07:43 | PCM.DC.SUM ---
Providers Date of Admission: 08/05/24 Primary Care Physician: No Primary Care Phys Reason For Visit: /CSECTION DELIVERY Diagnosis Discharge Diagnosis (1) Status post delivery: Status: Acute Code(s): Z98.891 - History of uterine scar from previous surgery (2) Anemia due to blood loss, acute: Status: Acute Code(s): D62 - Acute posthemorrhagic anemia (3) Post-operative pain: Status: Acute Code(s): G89.18 - Other acute postprocedural pain Plan POD 1 C/S Formula feeding Pain control HGB 8.5 down from 10.2- Start oral iron supplemention Anticipate discharge home tomorrow Medications at Discharge Home Medications levothyroxine 125 mcg tablet 125 mcg PO DAILY hypothyroid 08/05/24 vit no.95-ferrous fumarate 28 mg-folic acid 800 mcg tablet () 1 tab PO DAILY 08/05/24 acetaminophen 500 mg tablet 1,000 mg (2 x 500 mg) PO Q6H #0 tabs 08/07/24 ibuprofen 600 mg tablet 600 mg PO Q6H #0 tabs 08/07/24 oxycodone 5 mg tablet 5 - 10 mg (1 - 2 x 5 mg) PO Q4H PRN PRN Pain Score 4-10 3 days #14 tabs 08/07/24 sennosides 8.6 mg-docusate sodium 50 mg tablet (Stimulant Laxative Plus) 1 - 2 tab PO DAILY #0 tabs 08/07/24 Hospital Course Operations section Procedures None Summary of Care Provided Minutes Spent on Discharge: 15 Hospital Course: Patient had section. Hospital course was uneventful. Physical Exam Narrative Patient seen at bedside. Ambulating and voiding without difficulty. Pain controlled. Denies headache, vision changes, SOB, or CP. Desires discharge home today. Const alert and no apparent distress General Appearance: cooperative and comfortable Exam Limitations: no limitations HEENT normocephalic Eyes General Eye: normal appearance of both eyes Neck full ROM General: normal visual inspection Chest Chest: symmetrical chest wall rise Resp normal respiratory effort and normal air movement Effort and Inspection: symmetric chest movement Auscultation: clear to auscultation bilaterally Cardio regular rate and regular rhythm GI normal to inspection, nondistended, normoactive bowel sounds Back/Spine normal ROM Extremity full ROM and no calf tenderness General Extremity: normal exam except as noted Skin no rashes or lesions noted Wound Narrative: Dressing is dry and intact. Neuro CN's II-XII intact bilaterally Psych mental status grossly normal Weight / BMI Weight Weight: 251 lb Body Mass Index (BMI) 41.8 ABG / Lab / Microbiology Data 08/06/24 06:12 D/C Instructions Discharge Diet: No restrictions Discharge Activity: May Drive (2 weeks) and May Shower May resume sexual activity in: 6-8 weeks Weight Bearing Status: Weight bearing as tolerated Lifting Restricted to (Lbs): 25 Call your doctor if your incision/area has: Continuous Slow Oozing, Sudden Increased Bleeding, Increased Pain/ Swelling, Increased Redness, Foul Smelling Discharge and Swelling at the incision site Call your doctor if you observe: Fever of 101 or Higher, Numbness or Tingling, Using more than 1 pad per hour, Shortness of breath, Dizziness, Swelling in the ankles, Chest pain, Calf discomfort and Uncontrolled pain Suture Line Care: Avoid Pulling/Pushing Remove Dressing in: 5 days (Remove yourself or call office and schedule appointment for dressing removal.) DC O2, CPAP, BIPAP Needs Home O2 Discharge instructions: No When: 5 days for dressing removal or 2 weeks for post appointment. Meaningful Use Info Meaningful Use Meaningful Use Diagnoses (Choose all that apply): None applicable Ischemic Stroke Statin Dosing Therapy Reference: STATIN DOSE THERAPY REFERENCE: * Patients > 75 years receive moderate or high dose statin therapy. * Patients 75 years or YOUNGER should receive HIGH intensity statin dose unless contraindicated. You will be required to document reason for non-treatment if statin daily dose does not meet guidelines. HIGH DOSE STATIN THERAPY DAILY Atorvastatin > than or = to 40 mg Rosuvastatin > than or = to 20 mg Amlodipine + Atorvastatin > than or = to 2.5/40 mg Ezetimibe + Simvastatin 10/80 mg Simvastatin 80mg Discharge Plan Admission Admit Date/Time: 08/05/24 09:40 Primary Reason for Your Visit: Section Attending Provider: Eugenia Craft Primary Care Provider: Care Physician,Tania Primary Discharge Orders/Prescriptions Prescriptions: New sennosides-docusate sodium [Stimulant Laxative Plus] 8.6-50 mg Tablet 1 - 2 tab PO DAILY Qty: 0 0RF acetaminophen 500 mg Tablet 1,000 mg PO Q6H Qty: 0 0RF ibuprofen 600 mg Tablet 600 mg PO Q6H Qty: 0 0RF oxycodone 5 mg Tablet 5 - 10 mg PO Q4H PRN PRN (Reason: Pain Score 4-10) 3 Days Qty: 14 0RF Continued levothyroxine 125 mcg tablet 125 mcg PO DAILY PNV cmb#95-ferrous fumarate-FA [] 28 mg iron- 800 mcg tablet 1 tab PO DAILY Referrals / Follow Up: Elsa Chaudhary CNM [Med Staff - Adv Practice Prof] - Care Physician,No Primary [Primary Care Provider] - Disposition Disposition (needs filled in before D/C Order can be placed): Home, Self Care
[2024-08-07 07:45] VITALS: BP 129/74; PULSE 86; RESP 16; TEMP 36.4
--- NOTE | 2024-08-07 09:50 | CASEMGMT ---
Social Work Assessment Labor and Delivery Unit Patient Address: [address] [place], [place] [id number] Phone number: [phone] Date of Referral: 08/06/24 Time of Referral:? 44 Referred By: Dr. Craft Date of Intervention: 08/06/24?? Time of Intervention:? 1314 Reason for Referral:? anxiety Sw completed chart review and acknowledges social work consult due to maternal mental health history of anxiety. Sw presented to bedside and introduced self to mother of baby (CHERY Curiel). Sw explained sw role and completed psychosocial assessment. History obtained from: medical records, MOB Household composition: Currently residing in the family home is MOB, father of baby (FOB- Juvenal Up), their 7 year old son- Juvenal and baby when ready for discharge. MOB denies any issues or concerns with their home, she states that it is safe and secure. Patient's parent/guardian status:? ?FOB and MOB have been together for 10 years. MBO states that their families have been friends for years. baby is second baby for parents together. No concerns reported of domestic violence or intimate partner violence. Medical History: ?HÉCTOR is 29 year old female who is 3, para 1- now 2 following labor and delivery of . HÉCTOR received routine care during with [facility]. HÉCTOR presented to hospital and delivered baby via primary on 08/05/24. Baby boy, named Mau Lantigua was born weighing 9lb 11oz and had apgars of 9 and 9 at one and five minutes of life, respectfully. HÉCTOR is bottle feeding baby and he will be followed by Dr. Prince for pediatrics. Educational Status:? Both parents graduated from high school, no problems with reading, learning or comprehension. Financial Status: Both parents are gainfully employed outside of the home, MOB works for [employer] in housekeeping and FOB works in care detailing at a care dealership. Infant Supplies:?All necessary baby supplies obtained, including: car seat, safe sleep space, clothes, diapers and wipes? Childcare/Caregiver(s):?MOB will be the primary caregiver to baby. MOB states that when both parents are working she has a grandparents who will provide childcare. Transportation:?? MOB and FOB have their drivers license and reliable means of transportation, no barriers Programs/Agencies Involved: HÉCTOR is connected to resources through [facility] ([facility]) and [facility]. ??? Children Services/Legal Issues:?No history of children services involvement, no issues or concerns at this time warranting referral to be made. ?? Behavioral Health Issues: ??Mental Health History:?HÉCTOR denies mental health history for FOB. MOB states that she has experienced anxiety in the past, however this was a long time ago. MOB denies experiencing any anxiety or any other mental health symptoms prior to or during her . MOB denies requiring any medications to help her manage her mental health symptoms. When talking about mental health, HÉCTOR denies having any baby blues or with her first baby. ?? Substance Use History:??MOB denies substance use prior to and during . Family History:?No family history of substance use or significant mental health diagnoses. ? Drug Screens: ?No drug screens observed while completing chart review. ? Family/Social Stressors:? MOB denies any issues, problems or concerns at this time. Support Systems: HÉCTOR states that her mom, dad, grandma and her sisters are her biggest supports. Depression/Shaken Baby/Safe Sleeping:? Sw educated MOB on signs and symptoms of baby blues and depression and anxiety to be mindful of going into this period. Sw explained to MOB that mom's with history of anxiety or depression are more at risk to experiencing mental health symptoms. MOB expressed understanding. MOB states that she felt really well during her and hopes that she continues to feel like herself. MOB states that since having baby she has felt happy, feels like she has a connection to baby and has not felt down, sad, or anxious. Sw educated MOB on shaken baby prevention and ABCs of safe sleep, MOB expressed understanding. ASSESSMENT: MOB and baby admitted following labor and delivery of . Consult received due to MOB with history of anxiety. MOB states that anxiety was a long time ago, however did not give any extra details about this history or experience. MOB was laying in bed comfortably, following . MOB had a visitor present- presumably her grandmother, and informed sw that it was okay to complete assessment with her present. Grandmother was observed to be holding baby comfortably and lovingly. MOB made eye contact throughout assessment, and had smile on her face throughout conversation. MOB would answer questions asked by sw, but would not elaborate answers, and conversation did not flow naturally. MOB reports to having supports in place and having all required baby supplies for home going. PLAN:? No other services requested or indicated. MOB and baby to be discharged when medically ready. Parents were provided literature regarding: signs and symptoms of baby blues and mood and anxiety disorders, Help Me Grow, shaken baby prevention, ABCs of safe sleep and a list of county resources that are available for them should any needs present themselves. Elizabeth Rey, ANESTHESIOLOGY FELLOW, MULTIMEDIA TECHNICIAN
[2024-08-07] MEDS: Senna/Docusate Sodium 1 Tablet PO (09:54)
--- NOTE | 2024-08-13 09:28 | NURSING ---
Follow up phone call made, doing well, minimal pain. Saw OB on Sunday for dressing removal and incision check. Incision looks good. Denies any headaches, visual changes, flu like symptoms or Baby Blues. State that her bleeding is getting better. Mau is doing well with formula feeding, eating 2oz every 2 hours. Voiding and stooling well. Denies any questions at this time
== END 2024-08-07 15:43 | disposition home or self-care (01) | DRG 539 ==
PROVIDERS: Admitting Provider Obstetrics & Gynecology; Referring Provider Obstetrics & Gynecology; Visit Provider Obstetrics & Gynecology
PROC: 10D00Z1 Extraction of Products of Conception, Low, Open Approach (ICD-10-PCS; CPT 59514; principal; 2024-08-05 11:45)
DX: O36.63X0 Maternal care for excessive fetal growth, third trimester, not applicable or unspecified (principal); D62 Acute posthemorrhagic anemia; E03.9 Hypothyroidism, unspecified; O32.1XX0 Maternal care for breech presentation, not applicable or unspecified; O99.284 Endocrine, nutritional and metabolic diseases complicating childbirth; O26.893 Other specified pregnancy related conditions, third trimester; Z37.0 Single live birth; O90.81 Anemia of the puerperium; Z30.2 Encounter for sterilization; Z3A.39 39 weeks gestation of pregnancy; Z79.890 Hormone replacement therapy
CPT/HCPCS: 59025; 59050; 85025; 85027; 86780; 86850; 86900; 86901; 88302; 99221; A4216; G0378; J2405